=== PATIENT | male | born 1955 | race Caucasian/White ===

== ENCOUNTER → 2017-05-06 | Outpatient (CLI) | payer MEDICARE, OTHER | LOC: M RAD 08:01 | DX: R07.9 Chest pain, unspecified (principal); R91.1 Solitary pulmonary nodule; K80.20 Calculus of gallbladder without cholecystitis without obstruction; R91.8 Other nonspecific abnormal finding of lung field | CPT/HCPCS: 71250 ==

== ENCOUNTER → 2017-06-09 | Outpatient (CLI) | payer MEDICARE, OTHER | LOC: M PLARAD 09:21 | DX: R91.1 Solitary pulmonary nodule (principal) | CPT/HCPCS: 78815 ==

== ENCOUNTER 2019-07-24 10:47 | Emergency (ER) | payer MEDICARE, OTHER ==
[~2019-07-24] VITALS: Ht 175.3 cm; Wt 88.8 kg
[2019-07-24] MEDS ORDERED: FLUT15.820 NARES (11:06)
[2019-07-24] MEDS ORDERED: ENTR1TAB7 PO (11:06)
[2019-07-24] MEDS ORDERED: SYNT50TA PO (11:06)
[2019-07-24] MEDS ORDERED: OMEG1CAP16 PO (11:06)
[2019-07-24] MEDS ORDERED: NITR0.4S14 SL (11:06)
[2019-07-24] MEDS ORDERED: LOSA100T50 PO (11:06)
[2019-07-24] MEDS ORDERED: METO1TAB32 PO (11:06)
[2019-07-24] MEDS ORDERED: PLAV1TAB2 PO (11:06)
[2019-07-24] MEDS ORDERED: ZYLO300T6 PO (11:06)
[2019-07-24] MEDS ORDERED: OLIV250C PO (11:06)
[2019-07-24] MEDS ORDERED: VITA100T59 PO (11:06)
[2019-07-24] MEDS ORDERED: ATOR80TA59 PO (11:06)
[2019-07-24] MEDS ORDERED: FURO40TA2 PO (11:06)
[2019-07-24] MEDS ORDERED: MAGN400T3 PO (11:06)
[2019-07-24] MEDS ORDERED: ASPI81CH10 PO (11:06)
[2019-07-24] MEDS ORDERED: LORA-674 PO (11:06)
[2019-07-24] MEDS ORDERED: MULTCAP PO (11:06)
[2019-07-24 11:40] LABS: BASO % 0.2 % (0.0-1.0); EOS # 0.1 10^3/uL (0.0-0.5); EOS % 0.7 % (0.0-3.0); HEMATOCRIT 41.8 % (42.0-52.0); HEMOGLOBIN 13.9 g/dl (13.5-17.5); LYMPH # 0.8 10^3/uL (1.5-5.0); LYMPH % 10.4 % (24.0-44.0); MEAN CORPUSCULAR HEMOGLOBIN 31.9 pg (27.0-33.0); MEAN CORPUSCULAR HGB CONC 33.3 g/dl (32.0-36.5); MEAN CORPUSCULAR VOLUME 95.9 fl (80.0-96.0); MONO # 0.5 10^3/uL (0.0-0.8); MONO % 5.6 % (0.0-5.0); NEUTROPHILS # 6.7 10^3/uL (1.5-8.5); NEUTROPHILS % 82.9 % (36.0-66.0); PLATELET COUNT, AUTOMATED 138 10^3/uL (150-450); RED BLOOD COUNT 4.36 10^6/uL (4.30-6.10); WHITE BLOOD COUNT 8.1 10^3/uL (4.0-10.0)
--- NOTE | 2019-07-24 11:53 | REP ---
CT BRAIN WITHOUT CONTRAST: CT brain performed without IV contrast. Coronal reconstruction images are performed. There is mild atrophy. There is no midline shift of mass effect. Mild patchy periventricular small vessel ischemic changes are noted likely chronic in nature. No other abnormal density is seen in the brain. There is no acute hemorrhage. There is no extra-axial fluid collection. There are vascular calcifications in the carotid siphons. IMPRESSION: Mild atrophy and periventricular small vessel ischemic changes, likely chronic. No acute intracranial hemorrhage. Vascular calcifications. Electronically Signed by Jesus Ruiz MD 07/24/2019 12:57 P
[2019-07-24 11:55] LABS: INR 1.03; PROTHROMBIN TIME 13.2 SECONDS (11.8-14.0)
[2019-07-24] MEDS ORDERED: OMEG100011 PO (11:56)
[2019-07-24] MEDS ORDERED: OMEP-218 PO (11:56)
[2019-07-24] MEDS ORDERED: ASCO500T PO (11:56)
[2019-07-24] MEDS ORDERED: FERR325T16 PO (11:56)
--- NOTE | 2019-07-24 11:56 | REP ---
CHEST, SINGLE VIEW: Single view of the chest is performed. Comparison 03/17/2011. There is no acute infiltrate. Heart is upper limits of normal in size. Mediastinal silhouette is unremarkable. There are multiple sternal wires and mediastinal clips present. Left pacemaker is noted. IMPRESSION: No acute pulmonary disease. Electronically Signed by Jesus Ruiz MD 07/24/2019 12:57 P
[2019-07-24 12:14] LABS: ALBUMIN 3.4 GM/DL (3.2-5.2); ALT/SGPT 38 U/L (12-78); BILIRUBIN,DIRECT 0.1 MG/DL (0.0-0.2); BILIRUBIN,TOTAL 0.7 MG/DL (0.2-1.0); BLOOD UREA NITROGEN 31 MG/DL (7-18); CALCIUM LEVEL 9.2 MG/DL (8.8-10.2); CARBON DIOXIDE LEVEL 30 MEQ/L (21-32); CHLORIDE LEVEL 106 MEQ/L (98-107); CK-MB VALUE MASS 2.5 NG/ML (<3.6); CPK CREATINE PHOSPHOKINASE 116 U/L (39-308); CREATININE FOR GFR 1.28 MG/DL (0.70-1.30); GLOMERULAR FILTRATION RATE > 60.0 (>49); GLUCOSE, FASTING 95 MG/DL (70-100); MB/CK RELATIVE INDEX 2.16 (< OR =4); POTASSIUM SERUM 4.7 MEQ/L (3.5-5.1); SODIUM LEVEL 140 MEQ/L (136-145); TOTAL PROTEIN 6.6 GM/DL (6.4-8.2); TROPONIN I 0.04 NG/ML (< 0.10)
[2019-07-24] MEDS ORDERED: ASPIRIN 325 MG TAB PO ONE (13:15)
[2019-07-24] MEDS ORDERED: ISOVUE-370 76% 100ML VIAL (Q9967) As Ordered ONE (13:16)
[2019-07-24 14:51] VITALS: BP 172/78
--- NOTE | 2019-07-24 14:56 | REP ---
CT ANGIOGRAM OF THE NECK: CT angiogram of the neck is performed following the intravenous administration of 100 mL of Isovue 370. Sagittal, coronal, and 3D MIP reconstruction images are performed. Contrast is seen in the aortic arch. No contrast extends into the left common carotid artery with complete occlusion. There is a small amount of contrast seen in the left carotid bulb with a small amount of focal filling via adjacent collateral vessels. There is occlusion of the left internal carotid artery in its entirety to the [place]. Right brachycephalic artery demonstrates mild to moderate plaquing, with mild to moderate narrowing at the distal bifurcation. Right common carotid artery demonstrates mild plaquing and narrowing at its origin and there is mild scattered plaquing and narrowing more distally. Right external carotid artery appears significantly stenotic. There is no significant stenosis of the right internal carotid artery with luminal narrowing less than 50%. There is severe narrowing of the proximal right vertebral artery which is extremely thin throughout its course with moderately severe diffuse narrowing diffusely. The left vertebral artery demonstrates multifocal moderate degree of narrowing diffusely. Left vertebral artery is dominant. 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 There is also complete occlusion of the left internal carotid artery diffusely extending to the [place]. Small amount of contrast is seen in the left carotid bulb via collateral flow from external carotid branches. There is no significant stenosis of the right internal carotid artery. Dominant left vertebral artery demonstrates moderate multifocal narrowing. Preliminary report was provided for Dr. Khan at the time of the exam, the results were conveyed by telephone at approximately 1:55 p.m.., 07/24/2019. Electronically Signed by Jesus Ruiz MD 07/24/2019 07:48 P
--- NOTE | 2019-07-24 15:03 | REP ---
CT ANGIOGRAM OF THE BRAIN: Following the intravenous administration of 100 mL of Isovue 370, CT images of the brain are performed in the axial plane with sagittal, coronal, and 3D MIP reconstruction images. The intracranial left internal carotid artery is completely occluded. There is patent flow through the right internal carotid artery. There is moderate calcific plaquing and narrowing in the right carotid siphon region. Anterior communicating arteries are patent with adequate perfusion of both middle cerebral arteries in a symmetrical fashion. There is symmetrical flow in patent anterior cerebral arteries. Basilar artery demonstrates no significant stenosis. There is symmetrical perfusion of both posterior cerebral arteries. I see no aneurysm or AVM. IMPRESSION: Complete occlusion of the left internal carotid artery to the [place]. The left middle cerebral artery obtains collateral flow via the [place], with patent anterior communicating arteries. Moderate plaquing and narrowing of the right carotid siphon. There is symmetrical flow and perfusion in both anterior, middle and posterior cerebral arteries. The findings were conveyed to Dr. Khan by telephone at the time of the exam at approximately 1:55 p.m.., 07/24/2019. Electronically Signed by Jesus Ruiz MD 07/24/2019 07:49 P
--- NOTE | 2019-07-25 09:07 | ECGEPIP ---
[facility] - ED Test Date: 2019-07-24 Pat Name: GARY ENCISO Department: Room: - Gender: Male [employer]: kellie : 1955 Requested By: ANTHONY Garduno Order Number: [id number] Reading MD: Verónica Bedoya Measurements Intervals [place] Rate: 60 P: 41 RI: 170 QRS: -43 QRSD: 181 T: 152 QT: 499 QTc: 499 Interpretive Statements ELECTRONIC ATRIAL PACEMAKER ELECTRONIC VENTRICULAR PACEMAKER ABNORMAL RHYTHM ECG NO PRIOR Electronically Signed on 07-25-2019 9:07:26 EDT by Verónica Bedoya
== END 2019-07-24 14:53 | disposition short-term general hospital (02) ==
LOC: EDBD 10:47 → M ED 10:47 → UNDOADMIN 13:42 → M ED INP 13:42
DX: G45.9 Transient cerebral ischemic attack, unspecified (principal); I65.22 Occlusion and stenosis of left carotid artery; Z95.0 Presence of cardiac pacemaker; R94.31 Abnormal electrocardiogram [ECG] [EKG]; I10 Essential (primary) hypertension; E78.5 Hyperlipidemia, unspecified; I50.9 Heart failure, unspecified; G47.30 Sleep apnea, unspecified; Z79.82 Long term (current) use of aspirin; Z79.899 Other long term (current) drug therapy; Z88.8 Allergy status to other drugs, medicaments and biological substances
CPT/HCPCS: 70450; 70496; 70498; 71045; 80048; 80076; 82550; 82553; 84484; 85025; 85610; 85730; 86850; 86900; 86901; 93005; 93041; 94760; 99285; Q9967

== ENCOUNTER → 2020-03-18 | Outpatient (CLI) | payer MEDICARE, OTHER ==
[~2020-03-18] MED LIST: ASCO500T PO; ASPI81CH10 PO; ATOR80TA59 PO; ENTR1TAB7 PO; FERR325T16 PO; FLUT15.820 NARES; FURO40TA2 PO; LORA-674 PO; LOSA100T50 PO; MAGN400T3 PO; METO1TAB32 PO; MULTCAP PO; NITR0.4S14 SL; OLIV250C PO; OMEG100011 PO; OMEG1CAP16 PO; OMEP-218 PO; PLAV1TAB2 PO; SYNT50TA PO; VITA100T59 PO; ZYLO300T6 PO
== END ==
LOC: M LABSMTC 14:15
PROVIDERS: ATTEND Pediatrics
DX: Z20.828 Contact with and (suspected) exposure to other viral communicable diseases (principal)

== ENCOUNTER → 2021-03-14 | Outpatient (CLI) | payer OTHER ==
[~2021-03-14] MED LIST changes: +ASPI325T57 PO; +BUME1TAB3; +FERR324T21 PO; -FERR325T16 PO; -MAGN400T3 PO; +MAGN400T33 PO; +NITR0.4D6; +VERI2.5T
== END ==
LOC: M LABSMTC 09:18
PROVIDERS: ATTEND Anesthesiology
DX: Z01.812 Encounter for preprocedural laboratory examination (principal); Z20.822 Contact with and (suspected) exposure to COVID-19

== ENCOUNTER 2021-03-19 12:23 | Day surgery (SDC) | payer OTHER ==
[~2021-03-19] VITALS: Ht 170.2 cm; Wt 82.6 kg
[~2021-03-19 12:23] MED LIST changes: +NS 1,000 ML IV ONE
--- OUTSIDE RECORDS SUMMARY | 2021-03-19 12:31 | CCD | Continuity of Care Document ---
Author Author Adebayo ARCHER P. C. Organization Unknown Address [address] [place] [id number] Phone [phone] Care Team Providers Care Rn Emergency Name Role Phone Sami Kalyan [facility] AUTM Mick Ching MD AUTM [phone] Asuncion Underwood MD AUTM [phone] DAVE ELIZONDO M.D. P.C. AUTM [phone] Social History Type Date Description Comments Sex Unknown Allergies and adverse reactions Active Allergies Criticality Reaction | Severity Comments Date Tolmetin Unable to assess criticality 03/28/2020 Medications Active Medications SIG Qnty Indications Ordering Provide r Date Bumetanide 1mg Tablets 1 by mouth twice a day 90tabs Dave [facility] 01/24/20 21 Verquvo 2.5mg Tablets 1 by mouth every day with food dosage to be titrate by provider 90tabs Dave [facility]ondo [facility] 01/23/2021 Nitro-Dur 0.4mg/HR Patches 24HR apply patch daily and remove at bedtime 30units Dave El[facility]ondo [facility] 01/23/2021 Nicoderm CQ 21mg/24HR Patches 24HR apply patch daily and remove at bedtime 28units Dave [facility]ondo [facility] 12/12/2020 Wellbutrin SR 150mg Tablets ER 12H R 1 by mouth twice a day 60tabs Dave [facility]ondo [facility] 2020 Ipratropium Perdido/Albuterol Sulfate 0.5-2.5(3)mg/3ML Solution inhale 1 vial via nebulizer twice daily 90ml Dave El[facility]ondo [facility] 12/12/2020 Nebulizer Device use twice daily with duoneb 1units Dave Elizondo [facility] 12/13/19 21 Levothyroxine Sodium 75mcg Tablets Dave Elizondo M[facility] 07/18/2020 Ferrous Sulfate 324(65Fe) mg Table ts DR 1 by mouth twice a day Dave Elizondo [facility] 11/2020 Brilinta 90mg Tablets 1 by mouth every day 90tabs Dave Elizondo [facility] 07/19/19 21 Allopurinol 300mg Tablets 1 by mouth every day 90tabs Dave [facility]ondo [facility] 03/18/20 20 Atorvastatin Calcium 80mg Tablets take one tablet by mouth daily Dave [facility]ondo [facility] [place] Okay Extract 150mg Capsules take one tablet by mouth daily Dave El[facility]ondo [facility]. Vitamin C 500mg Capsules ever y day Dave El[facility]ondo [facility] Multivitamin Adult Tablets take one tablet by mouth twice daily Dave El[facility]ondo [facility] Nitrostat 0.4mg Tablets Sub one tablet by mouth for onset of chest pain, may repeat in five mins x2. if persists contact or call 911 25tabs Dave [facility]ondo [facility] 00 Fluticasone Propionate 50mcg/Act Suspension 2 sprays in each nostril daily Dave reis M.D[facility]. Magnesium Oxide 400mg Tablets 1 by mouth twice a day 90tabs Dave [facility]ondo [facility] [address] 1 by mouth every day 90caps Dave [facility]ondo [facility]. Metoprolol Succinate ER 25mg Tablets ER 24HR take one tablet by mouth daily Dave reis [facility].D[facility]. Loratadine 10mg Tablets take one tablet by mouth daily Dave El[facility]ondo [facility]. Furosemide 40mg Tablets take one tablet by mouth twice a day 180tabs Dave [facility]ondo [facility] Aspirin [address] 1 by mouth every day Dave [facility]ondo [facility] History Medications Amoxicillin 500mg Capsules take one tablet by mouth three times daily for 10 days 30caps Dave silva [facility] 11/26/2020 - 12/19/2020 Medications Administered in Office Medication SIG Qnty Indications Ordering Provider Date Lexiscan Injection Dave Elizondo [facility] 12/23/2020 Technetium TC 99M Sestamibi Injection Dave Elizondo [facility] 12/23/2020 Technetium TC 99M Sestamibi Injection Dave Elizondo [facility] 04/29/2018 Technetium TC 99M Sestamibi Injection Dave Elizondo M[facility] 07/30/2017 Vital Signs Date Vital Result Comment 03/14/2021 11:10am Height 69 inches 5'9" Weight 188.00 lb BMI (Body Mass Index) 27.8 kg/m2 Body Temperature 97.5 F BP Systolic 112 mmHg BP Diastolic 67 mmHg Heart Rate 78 /min O2 % BldC Oximetry 98 % 02/10/2021 2:44pm Height 69 inches 5'9" Weight 200.00 lb BMI (Body Mass Index) 29.5 kg/m2 Body Temperature 97.6 F BP Systolic 107 mmHg BP Diastolic 68 mmHg Heart Rate 68 /min O2 % BldC Oximetry 95 % Results Test Acquired Date Facility Test Result H/L Range Note Laboratory test finding 02/05/2021 [facility] [address] [place] [address] [phone] Iron 45 g/dL 42 - 135 Magnesium Serum 1.9 mg/dL 1.7 - 2.2 CBC W/Automated Diff 02/05/[address] [address] [phone] CBC W/Automated Diff (SEE NOTE) 1 WBC 6.0 10^3/uL 4.2 - 11.0 RBC 3.65 10^6/uL Low 4.50 - 6.30 Hemoglobin 11.4 g/dL Low 14.0 - 16.0 Hematocrit 36.5 % Low 41.0 - 51.0 MCV 100.0 fL High 80.0 - 94.0 MCH 31.2 pg 27.0 - 34.0 MCHC 31.2 g/dL 31.0 - 36.0 RDW 18.2 % High 11.5 - 14.8 Platelets 151 10^3/uL 150 - 450 MPV 11.2 fL High 7.4 - 10.4 Neut 78.6 % 37.0 - 80.0 Lymph 10.4 % Low 25.0 - 40.0 Marshall 8.0 % 3.0 - 8.0 Eos 2.5 % 0.0 - 7.0 Baso 0.3 % 0.0 - 2.0 %Ig 0.2 % High 0.0 - 0.0 %NRBC 0.0 % 0.0 - 0.0 #Neut 4.71 10^3/uL 2.00 - 6.90 #Lymph 0.62 10^3/uL 0.60 - 3.40 #Marshall 0.48 10^3/uL 0.00 - 0.90 #Eos 0.15 10^3/uL 0.00 - 0.70 #Baso 0.02 10^3/uL 0.00 - 0.20 #Ig 0.01 10^3/uL 0.00 - 0.10 #NRBC 0.00 10^3/uL 0.00 - 0.00 Manual Diff NOT INDICATED RBC Morph NOT INDICATED Laboratory test finding 02/05/[address] [address] [phone] TSH Highly Sensitive 10.10 uIU/mL High 0.47 - 5. 01 Vitamin B12 Serum 1363 pg/mL High 232 - 1245 Pro-BNP 9221 pg/mL High 0 - 125 Cve Panel 02/05/[address] [address] [phone] Cve Panel (SEE NOTE) 2 Cholesterol 116 mg/dL Low 131 - 200 Triglycerides 71 mg/dL 35 - 160 HDL 48 mg/dL 29 - 86 LDL 62 mg/dL Low 65 - 175 Risk Factor 2.4 Low 3.4 - 4.9 LDL/HDL 1.29 1.00 - 3.55 3 Comprehensive Metabolic Panel 02/05/2021 [facility] [address] [place] [phone] Comprehensive Metabo (SEE NOTE) 4 Sodium 142 mEq/L 134 - 153 Potassium 4.5 mEq/L 3.6 - 5.0 Chloride 105 mEq/L 98 - 107 Co2 25 mEq/L 22 - 30 Glucose 108 mg/dL High 70 - 99 BUN 27 mg/dL High 7 - 21 Creatinine 1.3 mg/dL 0.7 - 1.5 BUN/Creat 21 8 - 27 Total Protein 7.2 g/dL 6.3 - 8.2 Albumin 4.7 g/dL 3.9 - 5.0 Globulin 2.5 GM/DL 2.4 - 3.2 A/G Ratio 1.9 0.8 - 2.0 Calcium 9.9 mg/dL 8.4 - 10.2 Total Bili 1.1 mg/dL 0.2 - 1.3 Alkaline Phos 302 U/L High 38 - 126 Sgot/Ast 22 U/L 5 - 40 SGPT/Alt 11 U/L 7 - 56 Anion Gap 12.0 mmol/L 8.0 - 16.0 Age 65 yrs Non-Aa GFR 59 mL/min Afr Amer GFR >60 mL/min 5 CBC W/Automated Diff 01/23/[address] [address] [phone] CBC W/Automated Diff (SEE NOTE) 6 WBC 5.8 10^3/uL 4.2 - 11.0 RBC 3.10 10^6/uL Low 4.50 - 6.30 Hemoglobin 9.7 g/dL Low 14.0 - 16.0 Hematocrit 30.8 % Low 41.0 - 51.0 MCV 99.4 fL High 80.0 - 94.0 MCH 31.3 pg 27.0 - 34.0 MCHC 31.5 g/dL 31.0 - 36.0 RDW 17.3 % High 11.5 - 14.8 Platelets 154 10^3/uL 150 - 450 MPV 11.8 fL High 7.4 - 10.4 Neut 78.3 % 37.0 - 80.0 Lymph 9.0 % Low 25.0 - 40.0 Marshall 8.5 % High 3.0 - 8.0 Eos 3.8 % 0.0 - 7.0 Baso 0.2 % 0.0 - 2.0 %Ig 0.2 % High 0.0 - 0.0 %NRBC 0.0 % 0.0 - 0.0 #Neut 4.51 10^3/uL 2.00 - 6.90 #Lymph 0.52 10^3/uL Low 0.60 - 3.40 #Marshall 0.49 10^3/uL 0.00 - 0.90 #Eos 0.22 10^3/uL 0.00 - 0.70 #Baso 0.01 10^3/uL 0.00 - 0.20 #Ig 0.01 10^3/uL 0.00 - 0.10 #NRBC 0.00 10^3/uL 0.00 - 0.00 Manual Diff NOT INDICATED RBC Morph NOT INDICATED Laboratory test finding 01/23/2021 [facility] [address] [place] [address] [phone] Magnesium Serum 1.8 mg/dL 1.7 - 2.2 Comprehensive Metabolic Panel 01/23/2021 [facility] [address] [place] [address] [phone] Comprehensive Metabo (SEE NOTE) 7 Sodium 139 mEq/L 134 - 153 Potassium 4.7 mEq/L 3.6 - 5.0 Chloride 104 mEq/L 98 - 107 Co2 23 mEq/L 22 - 30 Glucose 95 mg/dL 70 - 99 BUN 39 mg/dL High 7 - 21 Creatinine 1.8 mg/dL High 0.7 - 1.5 BUN/Creat 22 8 - 27 Total Protein 6.2 g/dL Low 6.3 - 8.2 Albumin 4.2 g/dL 3.9 - 5.0 Globulin 2.0 GM/DL Low 2.4 - 3.2 A/G Ratio 2.1 High 0.8 - 2.0 Calcium 9.4 mg/dL 8.4 - 10.2 Total Bili 0.7 mg/dL 0.2 - 1.3 Alkaline Phos 289 U/L High 38 - 126 Sgot/Ast 15 U/L 5 - 40 SGPT/Alt 12 U/L 7 - 56 Anion Gap 12.0 mmol/L 8.0 - 16.0 Age 65 yrs Non-Aa GFR 41 mL/min Afr Amer GFR 49 mL/min 8 CBC W/Automated Diff 01/22/[address] [phone] CBC W/Automated Diff (SEE NOTE) 9 WBC 5.2 10^3/uL 4.2 - 11.0 RBC 3.10 10^6/uL Low 4.50 - 6.30 Hemoglobin 9.6 g/dL Low 14.0 - 16.0 Hematocrit 30.7 % Low 41.0 - 51.0 MCV 99.0 fL High 80.0 - 94.0 MCH 31.0 pg 27.0 - 34.0 MCHC 31.3 g/dL 31.0 - 36.0 RDW 17.4 % High 11.5 - 14.8 Platelets 147 10^3/uL Low 150 - 450 MPV 11.2 fL High 7.4 - 10.4 Neut 73.6 % 37.0 - 80.0 Lymph 13.0 % Low 25.0 - 40.0 Marshall 8.7 % High 3.0 - 8.0 Eos 3.9 % 0.0 - 7.0 Baso 0.4 % 0.0 - 2.0 %Ig 0.4 % High 0.0 - 0.0 %NRBC 0.0 % 0.0 - 0.0 #Neut 3.81 10^3/uL 2.00 - 6.90 #Lymph 0.67 10^3/uL 0.60 - 3.40 #Marshall 0.45 10^3/uL 0.00 - 0.90 #Eos 0.20 10^3/uL 0.00 - 0.70 #Baso 0.02 10^3/uL 0.00 - 0.20 #Ig 0.02 10^3/uL 0.00 - 0.10 #NRBC 0.00 10^3/uL 0.00 - 0.00 Manual Diff NOT INDICATED RBC Morph NOT INDICATED Laboratory test finding 01/22/2021 [facility] [address] [place] [address] [phone] Pro-BNP 6385 pg/mL High 0 - 125 Magnesium Serum 1.8 mg/dL 1.7 - 2.2 Comprehensive Metabolic Panel 01/22/2021 [facility] [address] [place] [address] [phone] Comprehensive Metabo (SEE NOTE) 10 Sodium 140 mEq/L 134 - 153 Potassium 4.6 mEq/L 3.6 - 5.0 Chloride 106 mEq/L 98 - 107 Co2 23 mEq/L 22 - 30 Glucose 93 mg/dL 70 - 99 BUN 37 mg/dL High 7 - 21 Creatinine 1.6 mg/dL High 0.7 - 1.5 BUN/Creat 23 8 - 27 Total Protein 6.3 g/dL 6.3 - 8.2 Albumin 4.2 g/dL 3.9 - 5.0 Globulin 2.1 GM/DL Low 2.4 - 3.2 A/G Ratio 2.0 0.8 - 2.0 Calcium 9.4 mg/dL 8.4 - 10.2 Total Bili 0.7 mg/dL 0.2 - 1.3 Alkaline Phos 256 U/L High 38 - 126 Sgot/Ast 16 U/L 5 - 40 SGPT/Alt 10 U/L 7 - 56 Anion Gap 11.0 mmol/L 8.0 - 16.0 Age 65 yrs Non-Aa GFR 46 mL/min Afr Amer GFR 56 mL/min 11 Laboratory test finding 01/22/2021 [facility] [address] [place] [address] [phone] Troponin T 0.04 NG/ML 0.00 - 0.10 12 Laboratory test finding 01/21/2021 [facility] [address] [place] [phone] Troponin T 0.07 NG/ML 0.00 - 0.10 13 Laboratory test finding 01/21/2021 [facility] [address] [place] [address] [phone] Iron 48 g/dL 42 - 135 Vitamin B12 Serum 1269 pg/mL High 232 - 1245 CBC W/Automated Diff 01/21/[address] [address] [phone] CBC W/Automated Diff (SEE NOTE) 14 WBC 5.5 10^3/uL 4.2 - 11.0 RBC 2.86 10^6/uL Low 4.50 - 6.30 Hemoglobin 9.0 g/dL Low 14.0 - 16.0 Hematocrit 28.4 % Low 41.0 - 51.0 MCV 99.3 fL High 80.0 - 94.0 MCH 31.5 pg 27.0 - 34.0 MCHC 31.7 g/dL 31.0 - 36.0 RDW 17.4 % High 11.5 - 14.8 Platelets 139 10^3/uL Low 150 - 450 MPV 10.6 fL High 7.4 - 10.4 Neut 79.1 % 37.0 - 80.0 Lymph 10.9 % Low 25.0 - 40.0 Marshall 7.1 % 3.0 - 8.0 Eos 2.2 % 0.0 - 7.0 Baso 0.5 % 0.0 - 2.0 %Ig 0.2 % High 0.0 - 0.0 %NRBC 0.0 % 0.0 - 0.0 #Neut 4.37 10^3/uL 2.00 - 6.90 #Lymph 0.60 10^3/uL 0.60 - 3.40 #Marshall 0.39 10^3/uL 0.00 - 0.90 #Eos 0.12 10^3/uL 0.00 - 0.70 #Baso 0.03 10^3/uL 0.00 - 0.20 #Ig 0.01 10^3/uL 0.00 - 0.10 #NRBC 0.00 10^3/uL 0.00 - 0.00 Manual Diff NOT INDICATED RBC Morph SEE BELOW Aniso 1+ Abnormal Normal: None Seen Poik 1+ Abnormal Normal: None Seen Hypo 1+ Abnormal Normal: None Seen 15 Teardrop 1+ Abnormal Normal: None Seen Ovalocytes 1+ Abnormal Normal: None Seen PLT Est NORMAL Normal: Normal 16 Laboratory test finding 01/21/[address] [address] [phone] Magnesium Serum 2.0 mg/dL 1.7 - 2.2 Comprehensive Metabolic Panel 01/21/2021 [facility] [address] [place] [address] [phone] Comprehensive Metabo (SEE NOTE) 17 Sodium 140 mEq/L 134 - 153 Potassium 4.4 mEq/L 3.6 - 5.0 Chloride 107 mEq/L 98 - 107 Co2 21 mEq/L Low 22 - 30 Glucose 112 mg/dL High 70 - 99 BUN 34 mg/dL High 7 - 21 Creatinine 1.5 mg/dL 0.7 - 1.5 BUN/Creat 23 8 - 27 Total Protein 6.1 g/dL Low 6.3 - 8.2 Albumin 4.1 g/dL 3.9 - 5.0 Globulin 2.0 GM/DL Low 2.4 - 3.2 A/G Ratio 2.1 High 0.8 - 2.0 Calcium 9.1 mg/dL 8.4 - 10.2 Total Bili <0.7 mg/dL 0.2 - 1.3 Alkaline Phos 260 U/L High 38 - 126 Sgot/Ast 17 U/L 5 - 40 SGPT/Alt 11 U/L 7 - 56 Anion Gap 12.0 mmol/L 8.0 - 16.0 Age 65 yrs Non-Aa GFR 50 mL/min Afr Amer GFR >60 mL/min 18 Laboratory test finding 01/21/2021 [facility] [address] [place] [address] [phone] Troponin T 0.06 NG/ML 0.00 - 0.10 19 Laboratory test finding 01/21/[address] [address] [phone] Troponin T 0.05 NG/ML 0.00 - 0.10 20 Laboratory test finding 01/21/[address] [address] [phone] Troponin T 0.05 NG/ML 0.00 - 0.10 21 Alcohol Ethyl Blood 01/20/[address] [address] [phone] Alcohol 70.0 mg/dL Alcohol % 0.07 % High 0.00 - 0.01 22 CBC W/Automated Diff 01/20/[address] [address] [phone] CBC W/Automated Diff (SEE NOTE) 23 WBC 6.3 10^3/uL 4.2 - 11.0 RBC 3.24 10^6/uL Low 4.50 - 6.30 Hemoglobin 10.2 g/dL Low 14.0 - 16.0 Hematocrit 32.5 % Low 41.0 - 51.0 MCV 100.3 fL High 80.0 - 94.0 MCH 31.5 pg 27.0 - 34.0 MCHC 31.4 g/dL 31.0 - 36.0 RDW 17.6 % High 11.5 - 14.8 Platelets 172 10^3/uL 150 - 450 MPV 11.6 fL High 7.4 - 10.4 Neut 74.3 % 37.0 - 80.0 Lymph 14.2 % Low 25.0 - 40.0 Marshall 7.7 % 3.0 - 8.0 Eos 3.2 % 0.0 - 7.0 Baso 0.3 % 0.0 - 2.0 %Ig 0.3 % High 0.0 - 0.0 %NRBC 0.0 % 0.0 - 0.0 #Neut 4.66 10^3/uL 2.00 - 6.90 #Lymph 0.89 10^3/uL 0.60 - 3.40 #Marshall 0.48 10^3/uL 0.00 - 0.90 #Eos 0.20 10^3/uL 0.00 - 0.70 #Baso 0.02 10^3/uL 0.00 - 0.20 #Ig 0.02 10^3/uL 0.00 - 0.10 #NRBC 0.00 10^3/uL 0.00 - 0.00 Manual Diff NOT INDICATED RBC Morph NOT INDICATED Laboratory test finding 01/20/2021 [facility] [address] [place] [phone] Troponin T 0.03 NG/ML 0.00 - 0.10 24 Comprehensive Metabolic Panel 01/20/2021 [facility] [address] [place] [address] [phone] Comprehensive Metabo (SEE NOTE) 25 Sodium 140 mEq/L 134 - 153 Potassium 3.9 mEq/L 3.6 - 5.0 Chloride 106 mEq/L 98 - 107 Co2 20 mEq/L Low 22 - 30 Glucose 118 mg/dL High 70 - 99 BUN 33 mg/dL High 7 - 21 Creatinine 1.5 mg/dL 0.7 - 1.5 BUN/Creat 22 8 - 27 Total Protein 6.2 g/dL Low 6.3 - 8.2 Albumin 4.1 g/dL 3.9 - 5.0 Globulin 2.1 GM/DL Low 2.4 - 3.2 A/G Ratio 2.0 0.8 - 2.0 Calcium 9.0 mg/dL 8.4 - 10.2 Total Bili <0.7 mg/dL 0.2 - 1.3 Alkaline Phos 273 U/L High 38 - 126 Sgot/Ast 19 U/L 5 - 40 SGPT/Alt 12 U/L 7 - 56 Anion Gap 14.0 mmol/L 8.0 - 16.0 Age 65 yrs Non-Aa GFR 50 mL/min Afr Amer GFR >60 mL/min 26 Laboratory test finding 01/20/[address] [phone] Pro-BNP 6632 pg/mL High 0 - 125 CBC W/Automated Diff 01/08/[address] [phone] CBC W/Automated Diff (SEE NOTE) 27 WBC 5.1 10^3/uL 4.2 - 11.0 RBC 3.06 10^6/uL Low 4.50 - 6.30 Hemoglobin 9.5 g/dL Low 14.0 - 16.0 Hematocrit 30.5 % Low 41.0 - 51.0 MCV 99.7 fL High 80.0 - 94.0 MCH 31.0 pg 27.0 - 34.0 MCHC 31.1 g/dL 31.0 - 36.0 RDW 16.4 % High 11.5 - 14.8 Platelets 147 10^3/uL Low 150 - 450 MPV 11.1 fL High 7.4 - 10.4 Neut 76.0 % 37.0 - 80.0 Lymph 9.1 % Low 25.0 - 40.0 Marshall 10.7 % High 3.0 - 8.0 Eos 3.2 % 0.0 - 7.0 Baso 0.8 % 0.0 - 2.0 %Ig 0.2 % High 0.0 - 0.0 %NRBC 0.0 % 0.0 - 0.0 #Neut 3.84 10^3/uL 2.00 - 6.90 #Lymph 0.46 10^3/uL Low 0.60 - 3.40 #Marshall 0.54 10^3/uL 0.00 - 0.90 #Eos 0.16 10^3/uL 0.00 - 0.70 #Baso 0.04 10^3/uL 0.00 - 0.20 #Ig 0.01 10^3/uL 0.00 - 0.10 #NRBC 0.00 10^3/uL 0.00 - 0.00 Manual Diff NOT INDICATED RBC Morph NOT INDICATED Comprehensive Metabolic Panel 01/08/[address] [address] [phone] Comprehensive Metabo (SEE NOTE) 28 Sodium 139 mEq/L 134 - 153 Potassium 4.3 mEq/L 3.6 - 5.0 Chloride 100 mEq/L 98 - 107 Co2 28 mEq/L 22 - 30 Glucose 106 mg/dL High 70 - 99 BUN 31 mg/dL High 7 - 21 Creatinine 1.2 mg/dL 0.7 - 1.5 BUN/Creat 26 8 - 27 Total Protein 6.4 g/dL 6.3 - 8.2 Albumin 4.3 g/dL 3.9 - 5.0 Globulin 2.1 GM/DL Low 2.4 - 3.2 A/G Ratio 2.0 0.8 - 2.0 Calcium 9.5 mg/dL 8.4 - 10.2 Total Bili 0.7 mg/dL 0.2 - 1.3 Alkaline Phos 277 U/L High 38 - 126 Sgot/Ast 38 U/L 5 - 40 SGPT/Alt 30 U/L 7 - 56 Anion Gap 11.0 mmol/L 8.0 - 16.0 Age 65 yrs Non-Aa GFR >60 mL/min Afr Amer GFR >60 mL/min 29 CBC W/Automated Diff 01/07/[address] [address] [phone] CBC W/Automated Diff (SEE NOTE) 30, 31 WBC 5.0 10^3/uL 4.2 - 11.0 RBC 3.14 10^6/uL Low 4.50 - 6.30 Hemoglobin 9.7 g/dL Low 14.0 - 16.0 Hematocrit 30.9 % Low 41.0 - 51.0 MCV 98.4 fL High 80.0 - 94.0 MCH 30.9 pg 27.0 - 34.0 MCHC 31.4 g/dL 31.0 - 36.0 RDW 16.5 % High 11.5 - 14.8 Platelets 144 10^3/uL Low 150 - 450 MPV 11.0 fL High 7.4 - 10.4 Neut 75.8 % 37.0 - 80.0 Lymph 10.9 % Low 25.0 - 40.0 Marshall 9.1 % High 3.0 - 8.0 Eos 3.4 % 0.0 - 7.0 Baso 0.4 % 0.0 - 2.0 %Ig 0.4 % High 0.0 - 0.0 %NRBC 0.0 % 0.0 - 0.0 #Neut 3.77 10^3/uL 2.00 - 6.90 #Lymph 0.54 10^3/uL Low 0.60 - 3.40 #Marshall 0.45 10^3/uL 0.00 - 0.90 #Eos 0.17 10^3/uL 0.00 - 0.70 #Baso 0.02 10^3/uL 0.00 - 0.20 #Ig 0.02 10^3/uL 0.00 - 0.10 #NRBC 0.00 10^3/uL 0.00 - 0.00 Manual Diff NOT INDICATED RBC Morph NOT INDICATED Laboratory test finding 01/07/2021 [facility] [address] [place] [address] [phone] Troponin T 0.02 NG/ML 0.00 - 0.10 32 Comprehensive Metabolic Panel 01/07/2021 [facility] [address] [place] [address] [phone] Comprehensive Metabo (SEE NOTE) 33 Sodium 139 mEq/L 134 - 153 Potassium 3.9 mEq/L 3.6 - 5.0 Chloride 101 mEq/L 98 - 107 Co2 28 mEq/L 22 - 30 Glucose 104 mg/dL High 70 - 99 BUN 31 mg/dL High 7 - 21 Creatinine 1.1 mg/dL 0.7 - 1.5 BUN/Creat 28 High 8 - 27 Total Protein 6.4 g/dL 6.3 - 8.2 Albumin 4.1 g/dL 3.9 - 5.0 Globulin 2.3 GM/DL Low 2.4 - 3.2 A/G Ratio 1.8 0.8 - 2.0 Calcium 9.2 mg/dL 8.4 - 10.2 Total Bili <0.7 mg/dL 0.2 - 1.3 Alkaline Phos 266 U/L High 38 - 126 Sgot/Ast 27 U/L 5 - 40 SGPT/Alt 17 U/L 7 - 56 Anion Gap 10.0 mmol/L 8.0 - 16.0 Age 65 yrs Non-Aa GFR >60 mL/min Afr Amer GFR >60 mL/min 34 CBC W/Automated Diff 01/06/[address] [address] [phone] CBC W/Automated Diff (SEE NOTE) 35 WBC 6.1 10^3/uL 4.2 - 11.0 RBC 3.28 10^6/uL Low 4.50 - 6.30 Hemoglobin 10.4 g/dL Low 14.0 - 16.0 Hematocrit 32.2 % Low 41.0 - 51.0 MCV 98.2 fL High 80.0 - 94.0 MCH 31.7 pg 27.0 - 34.0 MCHC 32.3 g/dL 31.0 - 36.0 RDW 16.7 % High 11.5 - 14.8 Platelets 141 10^3/uL Low 150 - 450 MPV 9.5 fL 7.4 - 10.4 Neut 78.2 % 37.0 - 80.0 Lymph 10.5 % Low 25.0 - 40.0 Marshall 8.4 % High 3.0 - 8.0 Eos 2.3 % 0.0 - 7.0 Baso 0.3 % 0.0 - 2.0 %Ig 0.3 % High 0.0 - 0.0 %NRBC 0.0 % 0.0 - 0.0 #Neut 4.75 10^3/uL 2.00 - 6.90 #Lymph 0.64 10^3/uL 0.60 - 3.40 #Marshall 0.51 10^3/uL 0.00 - 0.90 #Eos 0.14 10^3/uL 0.00 - 0.70 #Baso 0.02 10^3/uL 0.00 - 0.20 #Ig 0.02 10^3/uL 0.00 - 0.10 #NRBC 0.00 10^3/uL 0.00 - 0.00 Manual Diff NOT INDICATED RBC Morph NOT INDICATED Comprehensive Metabolic Panel 01/06/2021 [facility] [address] [place] [address] [phone] Comprehensive Metabo (SEE NOTE) 36 Sodium 141 mEq/L 134 - 153 Potassium 4.0 mEq/L 3.6 - 5.0 Chloride 102 mEq/L 98 - 107 Co2 29 mEq/L 22 - 30 Glucose 102 mg/dL High 70 - 99 BUN 32 mg/dL High 7 - 21 Creatinine 1.2 mg/dL 0.7 - 1.5 BUN/Creat 27 8 - 27 Total Protein 6.3 g/dL 6.3 - 8.2 Albumin 4.1 g/dL 3.9 - 5.0 Globulin 2.2 GM/DL Low 2.4 - 3.2 A/G Ratio 1.9 0.8 - 2.0 Calcium 9.4 mg/dL 8.4 - 10.2 Total Bili 0.7 mg/dL 0.2 - 1.3 Alkaline Phos 252 U/L High 38 - 126 Sgot/Ast 19 U/L 5 - 40 SGPT/Alt 12 U/L 7 - 56 Anion Gap 10.0 mmol/L 8.0 - 16.0 Age 65 yrs Non-Aa GFR >60 mL/min Afr Amer GFR >60 mL/min 37 Laboratory test finding 01/06/2021 [facility] [address] [place] [phone] Iron 40 g/dL Low 42 - 135 Laboratory test finding 01/05/2021 [facility] [address] [place] [phone] Magnesium Serum 1.8 mg/dL 1.7 - 2.2 CBC W/Automated Diff 01/05/[address] [address] [phone] CBC W/Automated Diff (SEE NOTE) 38 WBC 5.4 10^3/uL 4.2 - 11.0 RBC 3.23 10^6/uL Low 4.50 - 6.30 Hemoglobin 10.2 g/dL Low 14.0 - 16.0 Hematocrit 31.8 % Low 41.0 - 51.0 MCV 98.5 fL High 80.0 - 94.0 MCH 31.6 pg 27.0 - 34.0 MCHC 32.1 g/dL 31.0 - 36.0 RDW 16.5 % High 11.5 - 14.8 Platelets 168 10^3/uL 150 - 450 MPV 11.5 fL High 7.4 - 10.4 Neut 77.2 % 37.0 - 80.0 Lymph 11.6 % Low 25.0 - 40.0 Marshall 8.5 % High 3.0 - 8.0 Eos 1.7 % 0.0 - 7.0 Baso 0.6 % 0.0 - 2.0 %Ig 0.4 % High 0.0 - 0.0 %NRBC 0.0 % 0.0 - 0.0 #Neut 4.21 10^3/uL 2.00 - 6.90 #Lymph 0.63 10^3/uL 0.60 - 3.40 #Marshall 0.46 10^3/uL 0.00 - 0.90 #Eos 0.09 10^3/uL 0.00 - 0.70 #Baso 0.03 10^3/uL 0.00 - 0.20 #Ig 0.02 10^3/uL 0.00 - 0.10 #NRBC 0.00 10^3/uL 0.00 - 0.00 Manual Diff NOT INDICATED RBC Morph NOT INDICATED Comprehensive Metabolic Panel 01/05/2021 [facility] [address] [place] [address] [phone] Comprehensive Metabo (SEE NOTE) 39 Sodium 141 mEq/L 134 - 153 Potassium 3.6 mEq/L 3.6 - 5.0 Chloride 102 mEq/L 98 - 107 Co2 30 mEq/L 22 - 30 Glucose 101 mg/dL High 70 - 99 BUN 32 mg/dL High 7 - 21 Creatinine 1.4 mg/dL 0.7 - 1.5 BUN/Creat 23 8 - 27 Total Protein 6.1 g/dL Low 6.3 - 8.2 Albumin 3.7 g/dL Low 3.9 - 5.0 Globulin 2.4 GM/DL 2.4 - 3.2 A/G Ratio 1.5 0.8 - 2.0 Calcium 9.5 mg/dL 8.4 - 10.2 Total Bili 0.7 mg/dL 0.2 - 1.3 Alkaline Phos 243 U/L High 38 - 126 Sgot/Ast 18 U/L 5 - 40 SGPT/Alt 11 U/L 7 - 56 Anion Gap 9.0 mmol/L 8.0 - 16.0 Age 65 yrs Non-Aa GFR 54 mL/min Afr Amer GFR >60 mL/min 40 Laboratory test finding 01/04/2021 [facility] [address] [place] [address] [phone] Potassium 4.1 mEq/L 3.6 - 5.0 Laboratory test finding 01/04/2021 [facility] [address] [place] [address] [phone] Troponin T 0.02 NG/ML 0.00 - 0.10 41 Comprehensive Metabolic Panel 01/04/2021 [facility] [address] [place], [place] [id number] [phone] Comprehensive Metabo (SEE NOTE) 42 Sodium 142 mEq/L 134 - 153 Potassium 3.6 mEq/L 3.6 - 5.0 Chloride 103 mEq/L 98 - 107 Co2 27 mEq/L 22 - 30 Glucose 104 mg/dL High 70 - 99 BUN 27 mg/dL High 7 - 21 Creatinine 1.2 mg/dL 0.7 - 1.5 BUN/Creat 23 8 - 27 Total Protein 6.2 g/dL Low 6.3 - 8.2 Albumin 4.2 g/dL 3.9 - 5.0 Globulin 2.0 GM/DL Low 2.4 - 3.2 A/G Ratio 2.1 High 0.8 - 2.0 Calcium 9.5 mg/dL 8.4 - 10.2 Total Bili 0.9 mg/dL 0.2 - 1.3 Alkaline Phos 254 U/L High 38 - 126 Sgot/Ast 20 U/L 5 - 40 SGPT/Alt 12 U/L 7 - 56 Anion Gap 12.0 mmol/L 8.0 - 16.0 Age 65 yrs Non-Aa GFR >60 mL/min Afr Amer GFR >60 mL/min 43 CBC W/Automated Diff 01/04/2021 [place] [address] [phone] CBC W/Automated Diff (SEE NOTE) 44 WBC 5.9 10^3/uL 4.2 - 11.0 RBC 3.21 10^6/uL Low 4.50 - 6.30 Hemoglobin 10.1 g/dL Low 14.0 - 16.0 Hematocrit 32.0 % Low 41.0 - 51.0 MCV 99.7 fL High 80.0 - 94.0 MCH 31.5 pg 27.0 - 34.0 MCHC 31.6 g/dL 31.0 - 36.0 RDW 17.0 % High 11.5 - 14.8 Platelets 159 10^3/uL 150 - 450 MPV 11.2 fL High 7.4 - 10.4 Neut 76.5 % 37.0 - 80.0 Lymph 12.8 % Low 25.0 - 40.0 Marshall 8.0 % 3.0 - 8.0 Eos 2.1 % 0.0 - 7.0 Baso 0.3 % 0.0 - 2.0 %Ig 0.3 % High 0.0 - 0.0 %NRBC 0.0 % 0.0 - 0.0 #Neut 4.47 10^3/uL 2.00 - 6.90 #Lymph 0.75 10^3/uL 0.60 - 3.40 #Marshall 0.47 10^3/uL 0.00 - 0.90 #Eos 0.12 10^3/uL 0.00 - 0.70 #Baso 0.02 10^3/uL 0.00 - 0.20 #Ig 0.02 10^3/uL 0.00 - 0.10 #NRBC 0.00 10^3/uL 0.00 - 0.00 Manual Diff NOT INDICATED RBC Morph NOT INDICATED Laboratory test finding 01/04/[address] [phone] Magnesium Serum 1.8 mg/dL 1.7 - 2.2 Iron 41 g/dL Low 42 - 135 Laboratory test finding 01/04/[address] [phone] Troponin T 0.02 NG/ML 0.00 - 0.10 45 Laboratory test finding 01/03/2021 [facility] [address] [place] [address] [phone] Magnesium Serum 1.9 mg/dL 1.7 - 2.2 46 TSH Highly Sensitive 3.56 uIU/mL 0.47 - 5.01 T4 - Free 1.37 ng/dL 0.93 - 1.70 Laboratory test finding 01/03/2021 [facility] [address] [place], [place] [phone] Troponin T 0.02 NG/ML 0.00 - 0.10 47 Comprehensive Metabolic Panel 01/03/2021 [facility] [address] [place] [phone] Comprehensive Metabo (SEE NOTE) 48 Sodium 143 mEq/L 134 - 153 Potassium 3.8 mEq/L 3.6 - 5.0 Chloride 104 mEq/L 98 - 107 Co2 25 mEq/L 22 - 30 Glucose 122 mg/dL High 70 - 99 BUN 26 mg/dL High 7 - 21 Creatinine 1.2 mg/dL 0.7 - 1.5 BUN/Creat 22 8 - 27 Total Protein 6.6 g/dL 6.3 - 8.2 Albumin 4.5 g/dL 3.9 - 5.0 Globulin 2.1 GM/DL Low 2.4 - 3.2 A/G Ratio 2.1 High 0.8 - 2.0 Calcium 9.5 mg/dL 8.4 - 10.2 Total Bili 0.9 mg/dL 0.2 - 1.3 Alkaline Phos 266 U/L High 38 - 126 Sgot/Ast 26 U/L 5 - 40 SGPT/Alt 13 U/L 7 - 56 Anion Gap 14.0 mmol/L 8.0 - 16.0 Age 65 yrs Non-Aa GFR >60 mL/min Afr Amer GFR >60 mL/min 49 Laboratory test finding 01/03/[address] [address] [phone] Troponin T 0.02 NG/ML 0.00 - 0.10 50 Pro-BNP 6929 pg/mL High 0 - 125 CBC W/Automated Diff 01/03/[address] [address] [phone] CBC W/Automated Diff (SEE NOTE) 51 WBC 6.3 10^3/uL 4.2 - 11.0 RBC 3.25 10^6/uL Low 4.50 - 6.30 Hemoglobin 10.2 g/dL Low 14.0 - 16.0 Hematocrit 33.2 % Low 41.0 - 51.0 MCV 102.2 fL High 80.0 - 94.0 MCH 31.4 pg 27.0 - 34.0 MCHC 30.7 g/dL Low 31.0 - 36.0 RDW 17.2 % High 11.5 - 14.8 Platelets 146 10^3/uL Low 150 - 450 MPV 9.8 fL 7.4 - 10.4 Neut 83.0 % High 37.0 - 80.0 Lymph 8.7 % Low 25.0 - 40.0 Marshall 6.6 % 3.0 - 8.0 Eos 0.9 % 0.0 - 7.0 Baso 0.3 % 0.0 - 2.0 %Ig 0.5 % High 0.0 - 0.0 %NRBC 0.0 % 0.0 - 0.0 #Neut 5.25 10^3/uL 2.00 - 6.90 #Lymph 0.55 10^3/uL Low 0.60 - 3.40 #Marshall 0.42 10^3/uL 0.00 - 0.90 #Eos 0.06 10^3/uL 0.00 - 0.70 #Baso 0.02 10^3/uL 0.00 - 0.20 #Ig 0.03 10^3/uL 0.00 - 0.10 #NRBC 0.00 10^3/uL 0.00 - 0.00 Manual Diff NOT INDICATED RBC Morph NOT INDICATED Laboratory test finding 01/03/[address] [address] [phone] Troponin T 0.02 NG/ML 0.00 - 0.10 52 Laboratory test finding 12/12/[address] [address] [phone] Magnesium Serum 2.1 mg/dL 1.7 - 2.2 Pro-BNP 7997 pg/mL High 0 - 125 Comprehensive Metabolic Panel 12/12/2020 [facility] [address] [place] [phone] Comprehensive Metabo (SEE NOTE) 53 Sodium 142 mEq/L 134 - 153 Potassium 4.6 mEq/L 3.6 - 5.0 Chloride 106 mEq/L 98 - 107 Co2 22 mEq/L 22 - 30 Glucose 117 mg/dL High 70 - 99 BUN 32 mg/dL High 7 - 21 Creatinine 1.3 mg/dL 0.7 - 1.5 BUN/Creat 25 8 - 27 Total Protein 6.8 g/dL 6.3 - 8.2 Albumin 4.5 g/dL 3.9 - 5.0 Globulin 2.3 GM/DL Low 2.4 - 3.2 A/G Ratio 2.0 0.8 - 2.0 Calcium 9.6 mg/dL 8.4 - 10.2 Total Bili 0.7 mg/dL 0.2 - 1.3 Alkaline Phos 283 U/L High 38 - 126 Sgot/Ast 26 U/L 5 - 40 SGPT/Alt 17 U/L 7 - 56 Anion Gap 14.0 mmol/L 8.0 - 16.0 Age 65 yrs Non-Aa GFR 59 mL/min Afr Amer GFR >60 mL/min 54 Cve Panel 12/12/[address] [address] [phone] Cve Panel (SEE NOTE) 55 Cholesterol 108 mg/dL Low 131 - 200 Triglycerides 52 mg/dL 35 - 160 HDL 40 mg/dL 29 - 86 LDL 68 mg/dL 65 - 175 Risk Factor 2.7 Low 3.4 - 4.9 LDL/HDL 1.70 1.00 - 3.55 56 CBC W/Automated Diff 12/12/[address] [address] [phone] CBC W/Automated Diff (SEE NOTE) 57 WBC 7.0 10^3/uL 4.2 - 11.0 RBC 3.21 10^6/uL Low 4.50 - 6.30 Hemoglobin 10.3 g/dL Low 14.0 - 16.0 Hematocrit 33.2 % Low 41.0 - 51.0 MCV 103.4 fL High 80.0 - 94.0 MCH 32.1 pg 27.0 - 34.0 MCHC 31.0 g/dL 31.0 - 36.0 RDW 18.5 % High 11.5 - 14.8 Platelets 179 10^3/uL 150 - 450 MPV 10.7 fL High 7.4 - 10.4 Neut 83.7 % High 37.0 - 80.0 Lymph 7.8 % Low 25.0 - 40.0 Marshall 7.1 % 3.0 - 8.0 Eos 0.7 % 0.0 - 7.0 Baso 0.3 % 0.0 - 2.0 %Ig 0.4 % High 0.0 - 0.0 %NRBC 0.0 % 0.0 - 0.0 #Neut 5.88 10^3/uL 2.00 - 6.90 #Lymph 0.55 10^3/uL Low 0.60 - 3.40 #Marshall 0.50 10^3/uL 0.00 - 0.90 #Eos 0.05 10^3/uL 0.00 - 0.70 #Baso 0.02 10^3/uL 0.00 - 0.20 #Ig 0.03 10^3/uL 0.00 - 0.10 #NRBC 0.00 10^3/uL 0.00 - 0.00 Manual Diff NOT INDICATED RBC Morph NOT INDICATED Urinalysis 11/22/[address] [address] [phone] Urinalysis (SEE NOTE) 58, 59 Source R Color yellow Normal: Yellow Clarity clear Normal: Clear Spec [place] 1.015 1.001 - 1.030 pH 5 5 - 9 Glucose NORM Normal: Negative Bilirubin NEG Normal: Negative Ketone NEG Normal: Negative Protein NEG Normal: Negative Nitrite NEG Normal: Negative Blood NEG Normal: Negative Leuk Est NEG Normal: Negative Urobilinogen NOR less than 1.0 mg/dL Microscopic Not Indicate CBC W/Automated Diff 11/22/[address] [address] [phone] CBC W/Automated Diff (SEE NOTE) 60 WBC 6.7 10^3/uL 4.2 - 11.0 RBC 2.85 10^6/uL Low 4.50 - 6.30 Hemoglobin 9.4 g/dL Low 14.0 - 16.0 Hematocrit 28.8 % Low 41.0 - 51.0 MCV 101.1 fL High 80.0 - 94.0 MCH 33.0 pg 27.0 - 34.0 MCHC 32.6 g/dL 31.0 - 36.0 RDW 17.1 % High 11.5 - 14.8 Platelets 144 10^3/uL Low 150 - 450 MPV 9.7 fL 7.4 - 10.4 Neut 85.8 % High 37.0 - 80.0 Lymph 7.2 % Low 25.0 - 40.0 Marshall 5.8 % 3.0 - 8.0 Eos 0.7 % 0.0 - 7.0 Baso 0.1 % 0.0 - 2.0 %Ig 0.4 % High 0.0 - 0.0 %NRBC 0.0 % 0.0 - 0.0 #Neut 5.73 10^3/uL 2.00 - 6.90 #Lymph 0.48 10^3/uL Low 0.60 - 3.40 #Marshall 0.39 10^3/uL 0.00 - 0.90 #Eos 0.05 10^3/uL 0.00 - 0.70 #Baso 0.01 10^3/uL 0.00 - 0.20 #Ig 0.03 10^3/uL 0.00 - 0.10 #NRBC 0.00 10^3/uL 0.00 - 0.00 Manual Diff NOT INDICATED RBC Morph NOT INDICATED Laboratory test finding 11/22/2020 [facility] [address] [place] [address] [phone] Hgba1c 5.2 % 4.4 - 6.1 61 Iron 42 g/dL 42 - 135 Magnesium Serum 2.2 mg/dL 1.7 - 2.2 Comprehensive Metabolic Panel 11/22/2020 [facility] [address] [place] [address] [phone] Comprehensive Metabo (SEE NOTE) 62 Sodium 142 mEq/L 134 - 153 Potassium 5.4 mEq/L High 3.6 - 5.0 Chloride 109 mEq/L High 98 - 107 Co2 22 mEq/L 22 - 30 Glucose 110 mg/dL High 70 - 99 BUN 48 mg/dL High 7 - 21 Creatinine 1.6 mg/dL High 0.7 - 1.5 BUN/Creat 30 High 8 - 27 Total Protein 6.4 g/dL 6.3 - 8.2 Albumin 4.2 g/dL 3.9 - 5.0 Globulin 2.2 GM/DL Low 2.4 - 3.2 A/G Ratio 1.9 0.8 - 2.0 Calcium 9.3 mg/dL 8.4 - 10.2 Total Bili <0.7 mg/dL 0.2 - 1.3 Alkaline Phos 219 U/L High 38 - 126 Sgot/Ast 20 U/L 5 - 40 SGPT/Alt 16 U/L 7 - 56 Anion Gap 11.0 mmol/L 8.0 - 16.0 Age 65 yrs Non-Aa GFR 46 mL/min Afr Amer GFR 56 mL/min 63 Cve Panel 11/22/[address] [address] [phone] Cve Panel (SEE NOTE) 64 Cholesterol 109 mg/dL Low 131 - 200 Triglycerides 45 mg/dL 35 - 160 HDL 45 mg/dL 29 - 86 LDL 66 mg/dL 65 - 175 Risk Factor 2.4 Low 3.4 - 4.9 LDL/HDL 1.47 1.00 - 3.55 65 Laboratory test finding 11/22/[address] [address] [phone] TSH Highly Sensitive 3.34 uIU/mL 0.47 - 5.0 1 Pro-BNP 4405 pg/mL High 0 - 125 1 COMPLETE BLOOD COUNT 2 LIPID PANEL 3 CVE RISK CHOL/HDL LDL/HDL MEN: 1/2 AVERAGE 3.43 1.00 AVERAGE 4.97 3.55 2X AVERAGE 9.55 6.25 3X AVERAGE 23.99 7.99 WOMEN: 1/2 AVERAGE 3.27 1.47 AVERAGE 4.44 3.22 2X AVERAGE 7.05 5.03 3X AVERAGE 11.04 6.14 4 COMPREHENSIVE METABOLIC PANE L 5 Male GFR Interprentation 20-49 yrs >60 mL/min Normal 50-59 yrs >56 mL/min Normal 60-69 yrs >49 mL/min Normal 70-79yrs >42 mL/min Normal 80 and above >35 mL/min Normal Female GFR Interpretation 20-39 yrs >60 mL/min Normal 40-49 yrs >58 mL/min Normal 50-59 yrs >51 mL/min Normal 60-69 yrs >45 mL/min Normal 70-79 yrs >39 mL/min Normal 80 and above >32 mL/min Normal 6 COMPLETE BLOOD COUNT 7 COMPREHENSIVE METABOLIC PANE L 8 Male GFR Interprentation 20-49 yrs >60 mL/min Normal 50-59 yrs >56 mL/min Normal 60-69 yrs >49 mL/min Normal 70-79yrs >42 mL/min Normal 80 and above >35 mL/min Normal Female GFR Interpretation 20-39 yrs >60 mL/min Normal 40-49 yrs >58 mL/min Normal 50-59 yrs >51 mL/min Normal 60-69 yrs >45 mL/min Normal 70-79 yrs >39 mL/min Normal 80 and above >32 mL/min Normal 9 COMPLETE BLOOD COUNT 10 COMPREHENSIVE METABOLIC PANE L 11 Male GFR Interprentation 20-49 yrs >60 mL/min Normal 50-59 yrs >56 mL/min Normal 60-69 yrs >49 mL/min Normal 70-79yrs >42 mL/min Normal 80 and above >35 mL/min Normal Female GFR Interpretation 20-39 yrs >60 mL/min Normal 40-49 yrs >58 mL/min Normal 50-59 yrs >51 mL/min Normal 60-69 yrs >45 mL/min Normal 70-79 yrs >39 mL/min Normal 80 and above >32 mL/min Normal 12 TROPONIN T 0.1 ng/ml Recommended as the clinical th reshold value for Troponin T. 13 TROPONIN T 0.1 ng/ml Recommended as the clinical th reshold value for Troponin T. 14 COMPLETE BLOOD COUNT 15 { SICKLE CELL (NORMAL: NONE SEEN ) 16 COMMENT: _FEW_LARGE_PLATELET S_OBSERVED. 01/21/21.0452.LBS. . . 17 COMPREHENSIVE METABOLIC PANE L 18 Male GFR Interprentation 20-49 yrs >60 mL/min Normal 50-59 yrs >56 mL/min Normal 60-69 yrs >49 mL/min Normal 70-79yrs >42 mL/min Normal 80 and above >35 mL/min Normal Female GFR Interpretation 20-39 yrs >60 mL/min Normal 40-49 yrs >58 mL/min Normal 50-59 yrs >51 mL/min Normal 60-69 yrs >45 mL/min Normal 70-79 yrs >39 mL/min Normal 80 and above >32 mL/min Normal 19 TROPONIN T 0.1 ng/ml Recommended as the clinical th reshold value for Troponin T. 20 TROPONIN T 0.1 ng/ml Recommended as the clinical th reshold value for Troponin T. 21 TROPONIN T 0.1 ng/ml Recommended as the clinical th reshold value for Troponin T. 22 *FOR MEDICAL PURPOSES ONLY* 23 COMPLETE BLOOD COUNT 24 TROPONIN T 0.1 ng/ml Recommended as the clinical th reshold value for Troponin T. 25 COMPREHENSIVE METABOLIC PANE L 26 Male GFR Interprentation 20-49 yrs >60 mL/min Normal 50-59 yrs >56 mL/min Normal 60-69 yrs >49 mL/min Normal 70-79yrs >42 mL/min Normal 80 and above >35 mL/min Normal Female GFR Interpretation 20-39 yrs >60 mL/min Normal 40-49 yrs >58 mL/min Normal 50-59 yrs >51 mL/min Normal 60-69 yrs >45 mL/min Normal 70-79 yrs >39 mL/min Normal 80 and above >32 mL/min Normal 27 COMPLETE BLOOD COUNT 28 COMPREHENSIVE METABOLIC PANE L 29 Male GFR Interprentation 20-49 yrs >60 mL/min Normal 50-59 yrs >56 mL/min Normal 60-69 yrs >49 mL/min Normal 70-79yrs >42 mL/min Normal 80 and above >35 mL/min Normal Female GFR Interpretation 20-39 yrs >60 mL/min Normal 40-49 yrs >58 mL/min Normal 50-59 yrs >51 mL/min Normal 60-69 yrs >45 mL/min Normal 70-79 yrs >39 mL/min Normal 80 and above >32 mL/min Normal 30 Is patient fasting? N 31 COMPLETE BLOOD COUNT 32 TROPONIN T 0.1 ng/ml Recommended as the clinical th reshold value for Troponin T. 33 COMPREHENSIVE METABOLIC PANE L 34 Male GFR Interprentation 20-49 yrs >60 mL/min Normal 50-59 yrs >56 mL/min Normal 60-69 yrs >49 mL/min Normal 70-79yrs >42 mL/min Normal 80 and above >35 mL/min Normal Female GFR Interpretation 20-39 yrs >60 mL/min Normal 40-49 yrs >58 mL/min Normal 50-59 yrs >51 mL/min Normal 60-69 yrs >45 mL/min Normal 70-79 yrs >39 mL/min Normal 80 and above >32 mL/min Normal 35 COMPLETE BLOOD COUNT 36 COMPREHENSIVE METABOLIC PANE L 37 Male GFR Interprentation 20-49 yrs >60 mL/min Normal 50-59 yrs >56 mL/min Normal 60-69 yrs >49 mL/min Normal 70-79yrs >42 mL/min Normal 80 and above >35 mL/min Normal Female GFR Interpretation 20-39 yrs >60 mL/min Normal 40-49 yrs >58 mL/min Normal 50-59 yrs >51 mL/min Normal 60-69 yrs >45 mL/min Normal 70-79 yrs >39 mL/min Normal 80 and above >32 mL/min Normal 38 COMPLETE BLOOD COUNT 39 COMPREHENSIVE METABOLIC PANE L 40 Male GFR Interprentation 20-49 yrs >60 mL/min Normal 50-59 yrs >56 mL/min Normal 60-69 yrs >49 mL/min Normal 70-79yrs >42 mL/min Normal 80 and above >35 mL/min Normal Female GFR Interpretation 20-39 yrs >60 mL/min Normal 40-49 yrs >58 mL/min Normal 50-59 yrs >51 mL/min Normal 60-69 yrs >45 mL/min Normal 70-79 yrs >39 mL/min Normal 80 and above >32 mL/min Normal 41 TROPONIN T 0.1 ng/ml Recommended as the clinical th reshold value for Troponin T. 42 COMPREHENSIVE METABOLIC PANE L 43 Male GFR Interprentation 20-49 yrs >60 mL/min Normal 50-59 yrs >56 mL/min Normal 60-69 yrs >49 mL/min Normal 70-79yrs >42 mL/min Normal 80 and above >35 mL/min Normal Female GFR Interpretation 20-39 yrs >60 mL/min Normal 40-49 yrs >58 mL/min Normal 50-59 yrs >51 mL/min Normal 60-69 yrs >45 mL/min Normal 70-79 yrs >39 mL/min Normal 80 and above >32 mL/min Normal 44 COMPLETE BLOOD COUNT 45 TROPONIN T 0.1 ng/ml Recommended as the clinical th reshold value for Troponin T. 46 Can run on todays blood 47 TROPONIN T 0.1 ng/ml Recommended as the clinical th reshold value for Troponin T. 48 COMPREHENSIVE METABOLIC PANE L 49 Male GFR Interprentation 20-49 yrs >60 mL/min Normal 50-59 yrs >56 mL/min Normal 60-69 yrs >49 mL/min Normal 70-79yrs >42 mL/min Normal 80 and above >35 mL/min Normal Female GFR Interpretation 20-39 yrs >60 mL/min Normal 40-49 yrs >58 mL/min Normal 50-59 yrs >51 mL/min Normal 60-69 yrs >45 mL/min Normal 70-79 yrs >39 mL/min Normal 80 and above >32 mL/min Normal 50 TROPONIN T 0.1 ng/ml Recommended as the clinical th reshold value for Troponin T. 51 COMPLETE BLOOD COUNT 52 TROPONIN T 0.1 ng/ml Recommended as the clinical th reshold value for Troponin T. 53 COMPREHENSIVE METABOLIC PANE L 54 Male GFR Interprentation 20-49 yrs >60 mL/min Normal 50-59 yrs >56 mL/min Normal 60-69 yrs >49 mL/min Normal 70-79yrs >42 mL/min Normal 80 and above >35 mL/min Normal Female GFR Interpretation 20-39 yrs >60 mL/min Normal 40-49 yrs >58 mL/min Normal 50-59 yrs >51 mL/min Normal 60-69 yrs >45 mL/min Normal 70-79 yrs >39 mL/min Normal 80 and above >32 mL/min Normal 55 LIPID PANEL 56 CVE RISK CHOL/HDL LDL/HDL MEN: 1/2 AVERAGE 3.43 1.00 AVERAGE 4.97 3.55 2X AVERAGE 9.55 6.25 3X AVERAGE 23.99 7.99 WOMEN: 1/2 AVERAGE 3.27 1.47 AVERAGE 4.44 3.22 2X AVERAGE 7.05 5.03 3X AVERAGE 11.04 6.14 57 COMPLETE BLOOD COUNT 58 {SOURCE: Random Void~NURSE COLLECTED? N 59 URINALYSIS 60 COMPLETE BLOOD COUNT 61 {A1] {HB] 62 COMPREHENSIVE METABOLIC PANE L 63 Male GFR Interprentation 20-49 yrs >60 mL/min Normal 50-59 yrs >56 mL/min Normal 60-69 yrs >49 mL/min Normal 70-79yrs >42 mL/min Normal 80 and above >35 mL/min Normal Female GFR Interpretation 20-39 yrs >60 mL/min Normal 40-49 yrs >58 mL/min Normal 50-59 yrs >51 mL/min Normal 60-69 yrs >45 mL/min Normal 70-79 yrs >39 mL/min Normal 80 and above >32 mL/min Normal 64 LIPID PANEL 65 CVE RISK CHOL/HDL LDL/HDL MEN: 1/2 AVERAGE 3.43 1.00 AVERAGE 4.97 3.55 2X AVERAGE 9.55 6.25 3X AVERAGE 23.99 7.99 WOMEN: 1/2 AVERAGE 3.27 1.47 AVERAGE 4.44 3.22 2X AVERAGE 7.05 5.03 3X AVERAGE 11.04 6.14 Procedures Date Code Description Status 03/14/2021 75569 EKG Completed 03/14/2021 04925 Office/Outpatient Established Mo d MDM 30-39 Min Completed 02/10/2021 03010 Office/Outpatient Established Mo d MDM 30-39 Min Completed 01/23/2021 19227 Hospital Disch MGMT Completed 01/22/2021 61899 Hospital Care Low Completed 01/21/2021 32275 Hospital Care Moderate Completed 01/20/2021 99554 Hospital Care Initial Level 2 Co mpleted 01/08/2021 58060 Hospital Disch MGMT Completed 01/07/2021 81824 Hospital Care Low Completed 01/06/2021 74271 Hospital Care Low Completed 01/05/2021 21453 Hospital Care Moderate Completed 01/04/2021 96999 Hospital Care Moderate Completed 01/03/2021 52351 Hospital Care Initial Level 2 Co mpleted 12/24/2020 29222 Office/Outpatient Established Lo w MDM 20-29 Min Completed 12/23/2020 17206 Myocardial Perfusion,WM & Ef Com pleted 12/19/2020 89349 Office/Outpatient Established Mo d MDM 30-39 Min Completed 12/19/2020 35806 EKG Completed 12/17/2020 22097 Office/Outpatient Established Mo d MDM 30-39 Min Completed 12/12/2020 57869 Office/Outpatient Established Mo d MDM 30-39 Min Completed 11/26/2020 56033 Office/Outpatient Established Mo d MDM 30-39 Min Completed 11/26/2020 94559 Echocardiogram, Complete Complet ed 11/26/2020 50039 EKG Completed 11/22/2020 88387 Office/Outpatient Established Mo d MDM 30-39 Min Completed 10/22/2020 26146 Office/Outpatient Established Mo d MDM 30-39 Min Completed Encounters Type Date Location Provider Dx Diagnosis Office Visit 03/14/2021 11:15a [facility] Dave Elizondo [facility] I50.20 Unspecified systolic (congestive) heart failure I11.9 Hypertensive heart disease w [facility] heart failure Z01.810 Encounter for preprocedural cardiovascular examination I49.49 Other premature depolarizati on Office Visit 02/10/2021 2:45p [facility] Dave Elizondo M.D[facility] I50.20 Unspecified systolic (congestive) heart failure I42.9 Cardiomyopathy, unspecified I20.9 Angina pectoris, unspecified I11.9 Hypertensive heart disease w [facility] heart failure Office Visit 12/24/2020 11:30a [facility] Dave Elizondo M.D[facility] I11.9 Hypertensive heart disease without heart failure E78.5 Hyperlipidemia, unspecified I42.9 Cardiomyopathy, unspecified Office Visit 12/19/2020 10:15a [facility] Dave Elizondo M.D[facility]. I11.9 Hypertensive heart disease without heart failure D50.9 Iron deficiency anemia, unsp ecified E78.5 Hyperlipidemia, unspecified I50.20 Unspecified systolic (conges tive) heart failure I49.49 Other premature depolarizati on Office Visit 12/17/2020 10:15a [facility] Dave Elizondo M.D[facility]. [facility]. I11.9 Hypertensive heart disease without heart failure K59.00 Constipation, unspecified I50.20 Unspecified systolic (conges tive) heart failure I42.9 Cardiomyopathy, unspecified Office Visit 12/12/2020 10:00a [facility] Dave Elizondo M.D[facility]. [facility]. I11.9 Hypertensive heart disease without heart failure J43.9 Emphysema, unspecified Office Visit 11/26/2020 10:30a [facility] Dave Elizondo M.D[facility]. [facility]. I50.20 Unspecified systolic (congestive) heart failure I11.9 Hypertensive heart disease w [facility] heart failure J06.9 Acute upper respiratory infe ction, unspecified I42.9 Cardiomyopathy, unspecified I49.49 Other premature depolarizati on Office Visit 11/22/2020 10:00a [facility] Dave Elizondo M.D[facility]. [facility] I50.20 Unspecified systolic (congestive) heart failure I11.9 [facility] E[facility].5 Hyperlipidemia, unspecified Office Visit 10/22/2020 11:00a [facility] Dave Elizondo M.D[facility]. I11.9 Hypertensive heart disease without heart failure E78.5 Hyperlipidemia, unspecified I50.20 Unspecified systolic (conges tive) heart failure I95.9 Hypotension, unspecified Assessments Date Code Description Provider 03/14/2021 I50.20 Unspecified systolic (congestive ) heart failure Dave [facility]izondo M[facility] 03/14/2021 I11.9 Hypertensive heart disease witho ut heart failure Dave Elizondo M.D[facility] 03/14/2021 Z01.810 Encounter for preprocedural card iovascular examination Dave Elizondo M.D[facility] 03/14/2021 I49.49 Other premature depolarization Sandra Elizondo M.D[facility] 02/10/2021 I50.20 Unspecified systolic (congestive ) heart failure Dave Elizondo [facility] 02/10/2021 I42.9 Cardiomyopathy, unspecified Samreen Elizondo M.D[facility]. 02/10/2021 I20.9 Angina pectoris, unspecified Errol Elizondo M.D[facility] 02/10/2021 I11.9 Hypertensive heart disease witho ut heart failure Dave Elizondo M[facility] 01/23/2021 I25.119 Atherosclerotic hear t disease of [place] coronary artery with unspecified angina pectoris Dave Elizondo M.D[facility] 01/23/2021 I50.20 Unspecified systolic (congestive ) heart failure Dave Elizondo M.[facility] 01/23/2021 I42.9 Cardiomyopathy, unspecified Samreen Elizondo M.D[facility] 01/23/2021 I48.0 Paroxysmal atrial fibrillation Sandra Elizondo M.D[facility] 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 01/22/2021 I50.20 Unspecified systolic (congestive ) heart failure Dave Elizondo M.[facility] 01/22/2021 I42.9 Cardiomyopathy, unspecified Samreen Elizondo M.D[facility] 01/22/2021 I48.0 Paroxysmal atrial fibrillation Sandra Elizondo M.D[facility] 01/21/2021 I25.119 Atherosclerotic hear t disease of [place] coronary artery with unspecified angina pectoris Dave Elizondo M.D[facility] 01/21/2021 I50.20 Unspecified systolic (congestive ) heart failure Dave Elizondo M.[facility] 01/21/2021 I48.0 Paroxysmal atrial fibrillation Sandra Elizondo M.D[facility] 01/08/2021 I50.20 Unspecified systolic (congestive ) heart failure Dave Elizondo M.[facility] 01/08/2021 I42.9 Cardiomyopathy, unspecified Samreen Elizondo M.D[facility] 01/08/2021 I25.10 Atherosclerotic hear t disease of [place] coronary artery without angina pectoris Dave Elizondo M.[facility] 01/08/2021 J44.9 Chronic obstructive pulmonary di sease, unspecified Dave Elizondo [facility] 01/07/2021 I50.20 Unspecified systolic (congestive ) heart failure Dave Elizondo M.[facility] 01/07/2021 I42.9 Cardiomyopathy, unspecified Samreen Elizondo M.D[facility] 01/07/2021 I25.10 Atherosclerotic hear t disease of [place] coronary artery without angina pectoris Dave Elizondo M.D[facility] 01/07/2021 J44.9 Chronic obstructive pulmonary di sease, unspecified Dave [facility]izondo [facility] 01/06/2021 I50.20 Unspecified systolic (congestive ) heart failure Dave Elizondo M.[facility] 01/06/2021 I42.9 Cardiomyopathy, unspecified Samreen Elizondo M.D[facility] 01/06/2021 I25.10 Atherosclerotic hear t disease of [place] coronary artery without angina pectoris Dave Elizondo M.[facility] 01/06/2021 J44.9 Chronic obstructive pulmonary di sease, unspectaylor Elizondo M.D[facility]. 01/05/2021 I50.20 Unspecified systolic (congestive ) heart failure Dave Elizondo [facility] 01/05/2021 I42.9 Cardiomyopathy, unspecified Samreen Elizondo M.D[facility] 01/05/2021 I25.10 Atherosclerotic hear t disease of [place] coronary artery without angina pectoris Dave Elizondo M.[facility] 01/05/2021 J44.9 Chronic obstructive pulmonary di sease, fabrizio Elizondo M.D[facility]. 01/04/2021 I50.20 Unspecified systolic (congestive ) heart failure Dave [facility]ondo [facility] 01/04/2021 I42.9 Cardiomyopathy, unspecified Samreen Elizondo M.D[facility] 01/04/2021 I25.10 Atherosclerotic hear t disease of [place] coronary artery without angina pectoris Dave Elizondo M.[facility] 01/04/2021 J44.9 Chronic obstructive pulmonary di sease, unspecified Dave [facility]ondo [facility] 01/03/2021 I50.20 Unspecified systolic (congestive ) heart failure Dave Elizondo M.[facility] 01/03/2021 I42.9 Cardiomyopathy, unspecified Samreen Elizondo M.D[facility] 01/03/2021 I25.10 Atherosclerotic hear t disease of [place] coronary artery without angina pectoris Dave Elizondo M.[facility] 01/03/2021 J44.9 Chronic obstructive pulmonary di sease, unspecified Dave [facility]ondo [facility] 12/24/2020 I11.9 Hypertensive heart disease witho ut heart failure Dave Elizondo M.[facility] 12/24/2020 E78.5 Hyperlipidemia, unspecified Samreen Elizondo M.D[facility] 12/24/2020 I42.9 Cardiomyopathy, unspecified Samreen [facility]ondo M.[facility] 12/23/2020 I25.10 Atherosclerotic hear t disease of [place] coronary artery without angina pectoris Dave [facility]ondo M.[facility] 12/19/2020 I11.9 Hypertensive heart disease witho ut heart failure Dave [facility]ondo [facility] 12/19/2020 D50.9 Iron deficiency anemia, unspecif ied Dave [facility]ondo M.[facility] 12/19/2020 E78.5 Hyperlipidemia, unspecified Samreen [facility]ondo M.[facility] 12/19/2020 I50.20 Unspecified systolic (congestive ) heart failure Dave Elizondo M.[facility] 12/19/2020 I49.49 Other premature depolarization Sandra Elizondo M.D.,[facility]. 12/17/2020 I11.9 Hypertensive heart disease witho ut heart failure Dave Elizondo M.D[facility] 12/17/2020 K59.00 Constipation, unspecified Dave Elizondo M.D[facility] 12/17/2020 I50.20 Unspecified systolic (congestive ) heart failure Dave Elizondo M.D[facility] 12/17/2020 I42.9 Cardiomyopathy, unspecified Samreen Elizondo M.D[facility]. 12/12/2020 I11.9 Hypertensive heart disease witho tx heart failure Dave Elizondo M.D[facility] 12/12/2020 J43.9 Emphysema, unspecified Dave silva M.D.,[facility]. 11/26/2020 I50.20 Unspecified systolic (congestive ) heart failure Dave Elizondo M.D[facility] 11/26/2020 I11.9 Hypertensive heart disease witho tx heart failure Dave Elizondo M.D[facility]. 11/26/2020 J06.9 Acute upper respiratory infectio n, unspectaylor Elizondo M.D.,[facility]. 11/26/2020 I42.9 Cardiomyopathy, unspecified Samreen Elizondo M.D[facility]. 11/26/2020 I49.49 Other premature depolarization Sandra Elizondo M.D[facility] 11/22/2020 I50.20 Unspecified systolic (congestive ) heart failure Dave Elizondo M.D[facility] 11/22/2020 I11.9 Hypertensive heart disease witho tx heart failure Dave Elizondo M.D[facility]. 11/22/2020 E78.5 Hyperlipidemia, unspecified Samreen Elizondo M.D[facility]. 10/22/2020 I11.9 Hypertensive heart disease witho tx heart failure Dave Elizondo M.D[facility]. 10/22/2020 E78.5 Hyperlipidemia, unspectaylor Elizondo M.D.,[facility]. 10/22/2020 I50.20 Unspecified systolic (congestive ) heart failure Dave Elizondo M.D[facility]. 10/22/2020 I95.9 Hypotension, unspecified Dave greene M.D.,[facility]. Plan of Treatment Future Appointment(s):* 04/14/2021 1:45 pm - Dave Elizondo M[facility] at [facility] Referrals Refer to Dr Reason for Referral Status Appt Date Asuncion Underwood MD Please eval. and treat this patient for high creatinine, ENDY.. Thank you. Created [id number] [place], [place] [id number] [phone] Mick Ching MD Please eval. and treat this patient for positive nuclear stress test, he needs a cardiac cath. Thank you. Created [address] [facility] [address] [place] [address] [phone]
--- OUTSIDE RECORDS SUMMARY | 2021-03-19 12:31 | CCD | Continuity of Care Document ---
Author Adebayo Serrano Organization Unknown Address [address] [place] [id number] Phone [phone] Care Team Providers Care Hardwood Sawyer Name Role Phone Jon Elizondo M.D. AUTM [phone] Myriam Jauregui M.D. AUTM [phone] [facility] Care Everywhere AUTM [phone] Cam Foster M.D. AUTM [phone] Problems Active Problems Provider Date Carotid artery occlusion Onset: 08/18/19 20 Atherosclerosis of arteries of the extremities Onset: 08/18/2019 Atrial fibrillation Onset: 09/19/2019 Hyperlipidemia Onset: 09/19/2019 Congestive heart failure Onset: 09/19/19 20 Chronic obstructive lung disease Onset: 09/19/2019 Transient cerebral ischemia Onset: 09/18 Social History Type Date Description Comments Sex Unknown ETOH Use Occasionally consumes alcohol Tobacco Use Reviewed: 03/10/21 Patient is a current smoker, smokes every day 1/2 ppd Smoking Status Reviewed: 03/10/21 Patient is a current smoker, smokes every day 1/2 ppd Allergies and adverse reactions Active Allergies Criticality Reaction | Severity Comments Date Skelaxin Unable to assess criticality 08/18/2019 Medications Active Medications SIG Qnty Indications Ordering Provide r Date [place] Onset Extract qd Unknown Nitro-Dur 0.4mg/HR Patches 24HR 1 patch apply on every morning and off every night at bedtime Unknown Vitamin C 500mg Tablets 1 by mouth every day Unknown Metoprolol Succinate ER 25mg Tablets ER 24HR every day Unknown Levothyroxine Sodium 75mcg Tablets every day Unknown Bumetanide 1mg Tablets bid Unknown Verquvo 2.5mg Tablets qd Unknown Aspirin 325mg Tablets DR aubree fulton day Unknown Ferrous Sulfate 324(65Fe) mg Table ts DR bid Unknown Allopurinol 300mg Tablets jessica ry day Unknown Multivitamin Tablets bid Unknown Nitroglycerin 0.4mg Tablets Sub place 1 tablet (0.4 mg total) under the tongue every 5 (five) minutes as needed for chest pain Unknown Fluticasone Propionate 50mcg/Act Suspension 2 sprays each nostril every day Unknown Magnesium Oxide 400mg Tablets bid Unknown Omeprazole 20mg Capsules DR souleymane cuenca Unknown Loratadine 10mg Capsules 1 by mouth every day Unknown Atorvastatin Calcium 80mg Tablets every day Unknown Immunizations Description No Information Available Vital Signs Date Vital Result Comment 03/10/2021 8:51am BP Systolic Right Arm 130 mmHg BP Diastolic Right Arm 70 mmHg BP Systolic Left Arm 100 mmHg BP Diastolic Left Arm 60 mmHg Body Temperature 96.9 F Height 69 inches 5'9" Weight 195.00 lb Weight 88.452 kg BMI (Body Mass Index) 28.8 kg/m2 11/05/2020 10:05am BP Systolic Right Arm 130 mmHg BP Diastolic Right Arm 60 mmHg BP Systolic Left Arm 108 mmHg BP Diastolic Left Arm 50 mmHg Body Temperature 97.2 F Height 69 inches 5'9" Weight 185.00 lb Weight 83.916 kg BMI (Body Mass Index) 27.3 kg/m2 Results Test Acquired Date Facility Test Result H/L Range Note Xray 11/05/2020 PT Choice Subclavian Artery Bypass Ultrasound <pending> Procedures Date Code Description Status 03/10/2021 56794 Office/Outpatient Established w [facility] 20-29 Min Completed 03/10/2021 30267 Duplex Scan Extracranial Arterie s, Complete Bilateral Study Completed 11/05/2020 82557 Office/Outpatient Established w [facility] 20-29 Min Completed 11/05/2020 50931 Duplex Scan Extracranial Arterie s, Complete Bilateral Study Completed Medical Devices Description No Information Available Encounters Type Date Location Provider Dx Diagnosis Office Visit 03/10/2021 9:30a Main Office Anton Odonnell M.D. Z48.81 2 Encntr for surgical aftcr following surgery on the circ sys I65.23 Occlusion and stenosis of bi lateral carotid arteries I65.8 Occlusion and stenosis of ot her precerebral arteries Office Visit 11/05/2020 10:30a Main Office Jeanne De Luna Z48.812 Encntr for surgical aftcr following surgery on the circ sys I65.23 Occlusion and stenosis of bi lateral carotid arteries Assessments Date Code Description Provider 03/10/2021 I65.23 Occlusion and stenosis of bilate ral carotid arteries Anton Odonnell M.D. 03/10/2021 Z48.812 Encounter for surgic al aftercare following surgery on the circulatory system Anton Odonnell M.D. 03/10/2021 Z48.812 Encounter for surgic al aftercare following surgery on the circulatory system Anton Odonnell M.D. 03/10/2021 I65.23 Occlusion and stenosis of bilate ral carotid arteries Vascular Lab 03/10/2021 I65.23 Occlusion and stenosis of bilate ral carotid arteries Anton Odonnell M.D. 03/10/2021 Z48.812 Encounter for surgic al aftercare following surgery on the circulatory system V[facility] Lab 03/10/2021 I65.8 Occlusion and stenosis of other precerebral arteries Anton Odonnell M.D. 11/05/2020 I65.23 Occlusion and stenosis of bilate ral carotid arteries Anton Odonnell M.D. 11/05/2020 Z48.812 Encounter for surgic al aftercare following surgery on the circulatory system Jeanne De Luna 11/05/2020 Z48.812 Encounter for surgic al aftercare following surgery on the circulatory system Anton Odonnell M.D. 11/05/2020 I65.23 Occlusion and stenosis of bilate ral carotid arteries Vascular Lab 11/05/2020 I65.23 Occlusion and stenosis of bilate ral carotid arteries Jeanne De Luna 11/05/2020 Z48.812 Encounter for surgic al aftercare following surgery on the circulatory system Vascular Lab Plan of Treatment Future Appointment(s):* 09/10/2021 9:30 am - Vascular Lab at Main Office 03/10/2021 - Anton Odonnell M.D.* Z48.812 Encntr for surgical aftcr following surgery on the circ sys * I65.23 Occlusion and stenosis of bilateral carotid arteries * I65.8 Occlusion and stenosis of other precerebral arteries Functional Status Description No Information Available Mental Status Description No Information Available Referrals Description No Information Available
--- OUTSIDE RECORDS SUMMARY | 2021-03-19 12:31 | CCD | Continuity of Care Document ---
Author Author Adebayo RACHER P. C. Organization Unknown Address [address] [place] [id number] Phone [phone] Care Team Providers Care Director Of Safety And Security Name Role Phone Sami Kalyan [facility] AUTM [phone] Mick Ching MD AUTM [phone] Asuncion Underwood MD AUTM [phone] DAVE ELIZONDO M.D. P.C. AUTM [phone] Social History Type Date Description Comments Sex [...] day 60tabs Dave Elizondo M.D[facility]P.[facility]. 2020 Ipratropium [place]/Albuterol Sulfate 0.5-2.5(3)mg/3ML Solution inhale 1 vial via [...] tablet by mouth daily Dave Elizondo M.D[facility]P.C[facility] [place] Mcmillin Extract 150mg Capsules take one tablet by [...] H/L Range Note Laboratory test finding 02/05/2021 [facility] [address] [place] [address] [phone] Iron 45 g/dL 42 - 135 Magnesium Serum 1.9 mg/dL 1.7 - 2.2 CBC W/Automated Diff 02/05/[address] [address] [phone] CBC W/Automated Diff (SEE NOTE) 1 WBC [...] Lymph 10.4 % Low 25.0 - 40.0 [place] 8.0 % 3.0 - 8.0 Eos 2.5 % 0.0 - 7.0 Baso 0.3 % 0.0 - 2.0 %Ig 0.2 % High 0.0 - 0.0 %NRBC 0.0 % 0.0 - 0.0 #Neut 4.71 10^3/uL 2.00 - 6.90 #Lymph 0.62 10^3/uL 0.60 - 3.40 #[place] 0.48 10^3/uL 0.00 - 0.90 #Eos 0.15 10^3/uL 0.00 - 0.70 #Baso 0.02 10^3/uL 0.00 - 0.20 #Ig 0.01 10^3/uL 0.00 - 0.10 #NRBC 0.00 10^3/uL 0.00 - 0.00 Manual Diff NOT INDICATED RBC Morph NOT INDICATED Laboratory test finding 02/05/[address] [address] [phone] TSH Highly Sensitive 10.10 uIU/mL High 0.47 - 5. 01 Vitamin B12 Serum 1363 pg/mL High 232 - 1245 Pro-BNP 9221 pg/mL High 0 - 125 Cve Panel 02/05/[address] [address] [phone] Cve Panel (SEE NOTE) 2 Cholesterol 116 mg/dL Low 131 - 200 Triglycerides 71 mg/dL 35 - 160 HDL 48 mg/dL 29 - 86 LDL 62 mg/dL Low 65 - 175 Risk Factor 2.4 Low 3.4 - 4.9 LDL/HDL 1.29 1.00 - 3.55 3 Comprehensive Metabolic Panel 02/05/2021 [facility] [address] [place] [phone] [phone] Comprehensive Metabo (SEE NOTE) 4 Sodium 142 [...] >60 mL/min 5 CBC W/Automated Diff 01/23/[address] [address] [phone] CBC W/Automated Diff (SEE NOTE) 6 WBC [...] Lymph 9.0 % Low 25.0 - 40.0 [place] 8.5 % High 3.0 - 8.0 Eos 3.8 % 0.0 - 7.0 Baso 0.2 % 0.0 - 2.0 %Ig 0.2 % High 0.0 - 0.0 %NRBC 0.0 % 0.0 - 0.0 #Neut 4.51 10^3/uL 2.00 - 6.90 #Lymph 0.52 10^3/uL Low 0.60 - 3.40 #[place] 0.49 10^3/uL 0.00 - 0.90 #Eos 0.22 10^3/uL 0.00 - 0.70 #Baso 0.01 10^3/uL 0.00 - 0.20 #Ig 0.01 10^3/uL 0.00 - 0.10 #NRBC 0.00 10^3/uL 0.00 - 0.00 Manual Diff NOT INDICATED RBC Morph NOT INDICATED Laboratory test finding 01/23/2021 [facility] [address] [place] [address] [phone] Magnesium Serum 1.8 mg/dL 1.7 - 2.2 Comprehensive Metabolic Panel 01/23/2021 [facility] [address] [place] [address] [phone] Comprehensive Metabo (SEE NOTE) 7 Sodium 139 [...] 49 mL/min 8 CBC W/Automated Diff 01/22/[address] [phone] CBC W/Automated Diff (SEE NOTE) 9 WBC [...] Lymph 13.0 % Low 25.0 - 40.0 [place] 8.7 % High 3.0 - 8.0 Eos 3.9 % 0.0 - 7.0 Baso 0.4 % 0.0 - 2.0 %Ig 0.4 % High 0.0 - 0.0 %NRBC 0.0 % 0.0 - 0.0 #Neut 3.81 10^3/uL 2.00 - 6.90 #Lymph 0.67 10^3/uL 0.60 - 3.40 #[place] 0.45 10^3/uL 0.00 - 0.90 #Eos 0.20 10^3/uL 0.00 - 0.70 #Baso 0.02 10^3/uL 0.00 - 0.20 #Ig 0.02 10^3/uL 0.00 - 0.10 #NRBC 0.00 10^3/uL 0.00 - 0.00 Manual Diff NOT INDICATED RBC Morph NOT INDICATED Laboratory test finding 01/22/[facility] [address] [place] [address] [phone] Pro-BNP 6385 pg/mL High 0 - 125 Magnesium Serum 1.8 mg/dL 1.7 - 2.2 Comprehensive Metabolic Panel 01/22/2021 [facility] [address] [place] [address] [phone] Comprehensive Metabo (SEE NOTE) 10 Sodium 140 [...] 56 mL/min 11 Laboratory test finding 01/22/2021 [facility] [address] [place] [address] [phone] Troponin T 0.04 NG/ML 0.00 - 0.10 12 Laboratory test finding 01/21/2021 [facility] [address] [place] [address] [phone] Troponin T 0.07 NG/ML 0.00 - 0.10 13 Laboratory test finding 01/21/2021 [facility] [address] [place] [address] [phone] Iron 48 g/dL 42 - 135 Vitamin B12 Serum 1269 pg/mL High 232 - 1245 CBC W/Automated Diff 01/21/[address] [address] [phone] CBC W/Automated Diff (SEE NOTE) 14 WBC [...] Lymph 10.9 % Low 25.0 - 40.0 [place] 7.1 % 3.0 - 8.0 Eos 2.2 % 0.0 - 7.0 Baso 0.5 % 0.0 - 2.0 %Ig 0.2 % High 0.0 - 0.0 %NRBC 0.0 % 0.0 - 0.0 #Neut 4.37 10^3/uL 2.00 - 6.90 #Lymph 0.60 10^3/uL 0.60 - 3.40 #[place] 0.39 10^3/uL 0.00 - 0.90 #Eos 0.12 [...] Normal: Normal 16 Laboratory test finding 01/21/[address] [address] [phone] Magnesium Serum 2.0 mg/dL 1.7 - 2.2 Comprehensive Metabolic Panel 01/21/2021 [facility] [address] [place] [address] [phone] Comprehensive Metabo (SEE NOTE) 17 Sodium 140 [...] >60 mL/min 18 Laboratory test finding 01/21/2021 [facility] [address] [place] [address] [phone] Troponin T 0.06 NG/ML 0.00 - 0.10 19 Laboratory test finding 01/21/[address] [address] [phone] Troponin T 0.05 NG/ML 0.00 - 0.10 20 Laboratory test finding 01/21/[address] [address] [phone] Troponin T 0.05 NG/ML 0.00 - 0.10 21 Alcohol Ethyl Blood 01/20/[address] [address] [phone] Alcohol 70.0 mg/dL Alcohol % 0.07 % High 0.00 - 0.01 22 CBC W/Automated Diff 01/20/[address] [address] [phone] CBC W/Automated Diff (SEE NOTE) 23 WBC [...] Lymph 14.2 % Low 25.0 - 40.0 [place] 7.7 % 3.0 - 8.0 Eos 3.2 % 0.0 - 7.0 Baso 0.3 % 0.0 - 2.0 %Ig 0.3 % High 0.0 - 0.0 %NRBC 0.0 % 0.0 - 0.0 #Neut 4.66 10^3/uL 2.00 - 6.90 #Lymph 0.89 10^3/uL 0.60 - 3.40 #[place] 0.48 10^3/uL 0.00 - 0.90 #Eos 0.20 10^3/uL 0.00 - 0.70 #Baso 0.02 10^3/uL 0.00 - 0.20 #Ig 0.02 10^3/uL 0.00 - 0.10 #NRBC 0.00 10^3/uL 0.00 - 0.00 Manual Diff NOT INDICATED RBC Morph NOT INDICATED Laboratory test finding 01/20/2021 [facility] [address] [place] [address] [phone] Troponin T 0.03 NG/ML 0.00 - 0.10 24 Comprehensive Metabolic Panel 01/20/2021 [facility] [address] [place] [address] [phone] Comprehensive Metabo (SEE NOTE) 25 Sodium 140 [...] >60 mL/min 26 Laboratory test finding 01/20/[address] [phone] Pro-BNP 6632 pg/mL High 0 - 125 CBC W/Automated Diff 01/08/[address] [phone] CBC W/Automated Diff (SEE NOTE) 27 WBC [...] Lymph 9.1 % Low 25.0 - 40.0 [place] 10.7 % High 3.0 - 8.0 Eos 3.2 % 0.0 - 7.0 Baso 0.8 % 0.0 - 2.0 %Ig 0.2 % High 0.0 - 0.0 %NRBC 0.0 % 0.0 - 0.0 #Neut 3.84 10^3/uL 2.00 - 6.90 #Lymph 0.46 10^3/uL Low 0.60 - 3.40 #[place] 0.54 10^3/uL 0.00 - 0.90 #Eos 0.16 10^3/uL 0.00 - 0.70 #Baso 0.04 10^3/uL 0.00 - 0.20 #Ig 0.01 10^3/uL 0.00 - 0.10 #NRBC 0.00 10^3/uL 0.00 - 0.00 Manual Diff NOT INDICATED RBC Morph NOT INDICATED Comprehensive Metabolic Panel 01/08/[address] [address] [phone] Comprehensive Metabo (SEE NOTE) 28 Sodium 139 [...] >60 mL/min 29 CBC W/Automated Diff 01/07/[address] [address] [phone] CBC W/Automated Diff (SEE NOTE) 30, 31 [...] Lymph 10.9 % Low 25.0 - 40.0 [place] 9.1 % High 3.0 - 8.0 Eos 3.4 % 0.0 - 7.0 Baso 0.4 % 0.0 - 2.0 %Ig 0.4 % High 0.0 - 0.0 %NRBC 0.0 % 0.0 - 0.0 #Neut 3.77 10^3/uL 2.00 - 6.90 #Lymph 0.54 10^3/uL Low 0.60 - 3.40 #[place] 0.45 10^3/uL 0.00 - 0.90 #Eos 0.17 10^3/uL 0.00 - 0.70 #Baso 0.02 10^3/uL 0.00 - 0.20 #Ig 0.02 10^3/uL 0.00 - 0.10 #NRBC 0.00 10^3/uL 0.00 - 0.00 Manual Diff NOT INDICATED RBC Morph NOT INDICATED Laboratory test finding 01/07/2021 [facility] [address] [place] [address] [phone] Troponin T 0.02 NG/ML 0.00 - 0.10 32 Comprehensive Metabolic Panel 01/07/2021 [facility] [address] [place] [address] [phone] Comprehensive Metabo (SEE NOTE) 33 Sodium 139 [...] >60 mL/min 34 CBC W/Automated Diff 01/06/[address] [address] [phone] CBC W/Automated Diff (SEE NOTE) 35 WBC [...] Lymph 10.5 % Low 25.0 - 40.0 [place] 8.4 % High 3.0 - 8.0 Eos 2.3 % 0.0 - 7.0 Baso 0.3 % 0.0 - 2.0 %Ig 0.3 % High 0.0 - 0.0 %NRBC 0.0 % 0.0 - 0.0 #Neut 4.75 10^3/uL 2.00 - 6.90 #Lymph 0.64 10^3/uL 0.60 - 3.40 #[place] 0.51 10^3/uL 0.00 - 0.90 #Eos 0.14 10^3/uL 0.00 - 0.70 #Baso 0.02 10^3/uL 0.00 - 0.20 #Ig 0.02 10^3/uL 0.00 - 0.10 #NRBC 0.00 10^3/uL 0.00 - 0.00 Manual Diff NOT INDICATED RBC Morph NOT INDICATED Comprehensive Metabolic Panel 01/06/2021 [facility] [address] [place] [address] [phone] Comprehensive Metabo (SEE NOTE) 36 Sodium 141 [...] >60 mL/min 37 Laboratory test finding 01/06/2021 [facility] [address] [place] [address] [phone] Iron 40 g/dL Low 42 - 135 Laboratory test finding 01/05/2021 [facility] [address] [place] [address] [phone] Magnesium Serum 1.8 mg/dL 1.7 - 2.2 CBC W/Automated Diff 01/05/[address] [address] [phone] CBC W/Automated Diff (SEE NOTE) 38 WBC [...] Lymph 11.6 % Low 25.0 - 40.0 [place] 8.5 % High 3.0 - 8.0 Eos 1.7 % 0.0 - 7.0 Baso 0.6 % 0.0 - 2.0 %Ig 0.4 % High 0.0 - 0.0 %NRBC 0.0 % 0.0 - 0.0 #Neut 4.21 10^3/uL 2.00 - 6.90 #Lymph 0.63 10^3/uL 0.60 - 3.40 #[place] 0.46 10^3/uL 0.00 - 0.90 #Eos 0.09 10^3/uL 0.00 - 0.70 #Baso 0.03 10^3/uL 0.00 - 0.20 #Ig 0.02 10^3/uL 0.00 - 0.10 #NRBC 0.00 10^3/uL 0.00 - 0.00 Manual Diff NOT INDICATED RBC Morph NOT INDICATED Comprehensive Metabolic Panel 01/05/2021 [facility] [address] [place] [address] [phone] Comprehensive Metabo (SEE NOTE) 39 Sodium 141 [...] >60 mL/min 40 Laboratory test finding 01/04/2021 [facility] [address] [place] [address] [phone] Potassium 4.1 mEq/L 3.6 - 5.0 Laboratory test finding 01/04/2021 [facility] [address] [place] [address] [phone] Troponin T 0.02 NG/ML 0.00 - 0.10 41 Comprehensive Metabolic Panel 01/04/2021 [facility] [address] [place], [place] [phone] Comprehensive Metabo (SEE NOTE) 42 Sodium 142 [...] >60 mL/min 43 CBC W/Automated Diff 01/04/2021 [place] [address] [phone] CBC W/Automated Diff (SEE NOTE) 44 WBC [...] Lymph 12.8 % Low 25.0 - 40.0 [place] 8.0 % 3.0 - 8.0 Eos 2.1 % 0.0 - 7.0 Baso 0.3 % 0.0 - 2.0 %Ig 0.3 % High 0.0 - 0.0 %NRBC 0.0 % 0.0 - 0.0 #Neut 4.47 10^3/uL 2.00 - 6.90 #Lymph 0.75 10^3/uL 0.60 - 3.40 #[place] 0.47 10^3/uL 0.00 - 0.90 #Eos 0.12 10^3/uL 0.00 - 0.70 #Baso 0.02 10^3/uL 0.00 - 0.20 #Ig 0.02 10^3/uL 0.00 - 0.10 #NRBC 0.00 10^3/uL 0.00 - 0.00 Manual Diff NOT INDICATED RBC Morph NOT INDICATED Laboratory test finding 01/04/[address] [address] [phone] Magnesium Serum 1.8 mg/dL 1.7 - 2.2 Iron 41 g/dL Low 42 - 135 Laboratory test finding 01/04/[address] [phone] Troponin T 0.02 NG/ML 0.00 - 0.10 45 Laboratory test finding 01/03/2021 [facility] [address] [place] [address] [phone] Magnesium Serum 1.9 mg/dL 1.7 - 2.2 46 TSH Highly Sensitive 3.56 uIU/mL 0.47 - 5.01 T4 - Free 1.37 ng/dL 0.93 - 1.70 Laboratory test finding 01/03/2021 [facility] [address] [place], [place] [phone] Troponin T 0.02 NG/ML 0.00 - 0.10 47 Comprehensive Metabolic Panel 01/03/2021 [facility] [address] [place] [address] [phone] Comprehensive Metabo (SEE NOTE) 48 Sodium 143 [...] >60 mL/min 49 Laboratory test finding 01/03/[address] [address] [phone] Troponin T 0.02 NG/ML 0.00 - 0.10 50 Pro-BNP 6929 pg/mL High 0 - 125 CBC W/Automated Diff 01/03/[address] [address] [phone] CBC W/Automated Diff (SEE NOTE) 51 WBC [...] Lymph 8.7 % Low 25.0 - 40.0 [place] 6.6 % 3.0 - 8.0 Eos 0.9 % 0.0 - 7.0 Baso 0.3 % 0.0 - 2.0 %Ig 0.5 % High 0.0 - 0.0 %NRBC 0.0 % 0.0 - 0.0 #Neut 5.25 10^3/uL 2.00 - 6.90 #Lymph 0.55 10^3/uL Low 0.60 - 3.40 #[place] 0.42 10^3/uL 0.00 - 0.90 #Eos 0.06 10^3/uL 0.00 - 0.70 #Baso 0.02 10^3/uL 0.00 - 0.20 #Ig 0.03 10^3/uL 0.00 - 0.10 #NRBC 0.00 10^3/uL 0.00 - 0.00 Manual Diff NOT INDICATED RBC Morph NOT INDICATED Laboratory test finding 01/03/[address] [address] [phone] Troponin T 0.02 NG/ML 0.00 - 0.10 52 Laboratory test finding 12/12/[address] [address] [phone] Magnesium Serum 2.1 mg/dL 1.7 - 2.2 Pro-BNP 7997 pg/mL High 0 - 125 Comprehensive Metabolic Panel 12/12/2020 [facility] [address] [place] [address] [phone] Comprehensive Metabo (SEE NOTE) 53 Sodium 142 [...] GFR >60 mL/min 54 Cve Panel 12/12/[address] [address] [phone] Cve Panel (SEE NOTE) 55 Cholesterol 108 mg/dL Low 131 - 200 Triglycerides 52 mg/dL 35 - 160 HDL 40 mg/dL 29 - 86 LDL 68 mg/dL 65 - 175 Risk Factor 2.7 Low 3.4 - 4.9 LDL/HDL 1.70 1.00 - 3.55 56 CBC W/Automated Diff 12/12/[address] [address] [phone] CBC W/Automated Diff (SEE NOTE) 57 WBC [...] Lymph 7.8 % Low 25.0 - 40.0 [place] 7.1 % 3.0 - 8.0 Eos 0.7 % 0.0 - 7.0 Baso 0.3 % 0.0 - 2.0 %Ig 0.4 % High 0.0 - 0.0 %NRBC 0.0 % 0.0 - 0.0 #Neut 5.88 10^3/uL 2.00 - 6.90 #Lymph 0.55 10^3/uL Low 0.60 - 3.40 #[place] 0.50 10^3/uL 0.00 - 0.90 #Eos 0.05 10^3/uL 0.00 - 0.70 #Baso 0.02 10^3/uL 0.00 - 0.20 #Ig 0.03 10^3/uL 0.00 - 0.10 #NRBC 0.00 10^3/uL 0.00 - 0.00 Manual Diff NOT INDICATED RBC Morph NOT INDICATED Urinalysis 11/22/[address] [address] [phone] Urinalysis (SEE NOTE) 58, 59 Source R Color yellow Normal: Yellow Clarity clear Normal: Clear Spec [place] 1.015 1.001 - 1.030 pH 5 5 - 9 Glucose NORM Normal: Negative Bilirubin NEG Normal: Negative Ketone NEG Normal: Negative Protein NEG Normal: Negative Nitrite NEG Normal: Negative Blood NEG Normal: Negative Leuk Est NEG Normal: Negative Urobilinogen NOR less than 1.0 mg/dL Microscopic Not Indicate CBC W/Automated Diff 11/22/[address] [address] [phone] CBC W/Automated Diff (SEE NOTE) 60 WBC [...] Lymph 7.2 % Low 25.0 - 40.0 [place] 5.8 % 3.0 - 8.0 Eos 0.7 % 0.0 - 7.0 Baso 0.1 % 0.0 - 2.0 %Ig 0.4 % High 0.0 - 0.0 %NRBC 0.0 % 0.0 - 0.0 #Neut 5.73 10^3/uL 2.00 - 6.90 #Lymph 0.48 10^3/uL Low 0.60 - 3.40 #[place] 0.39 10^3/uL 0.00 - 0.90 #Eos 0.05 10^3/uL 0.00 - 0.70 #Baso 0.01 10^3/uL 0.00 - 0.20 #Ig 0.03 10^3/uL 0.00 - 0.10 #NRBC 0.00 10^3/uL 0.00 - 0.00 Manual Diff NOT INDICATED RBC Morph NOT INDICATED Laboratory test finding 11/22/2020 [facility] [address] [place] [address] [phone] Hgba1c 5.2 % 4.4 - 6.1 61 Iron 42 g/dL 42 - 135 Magnesium Serum 2.2 mg/dL 1.7 - 2.2 Comprehensive Metabolic Panel 11/22/2020 [facility] [address] [place] [address] [phone] Comprehensive Metabo (SEE NOTE) 62 Sodium 142 [...] GFR 56 mL/min 63 Cve Panel 11/22/[address] [address] [phone] Cve Panel (SEE NOTE) 64 Cholesterol 109 mg/dL Low 131 - 200 Triglycerides 45 mg/dL 35 - 160 HDL 45 mg/dL 29 - 86 LDL 66 mg/dL 65 - 175 Risk Factor 2.4 Low 3.4 - 4.9 LDL/HDL 1.47 1.00 - 3.55 65 Laboratory test finding 11/22/[address] [address] [phone] TSH Highly Sensitive 3.34 uIU/mL 0.47 - [...] 11.04 6.14 Procedures Date Code Description Status 02/10/2021 31308 Office/Outpatient Established Mo d MDM 30-39 Min Completed 01/23/2021 65341 Hospital Disch MGMT Completed 01/22/2021 33815 Hospital Care Low Completed 01/21/2021 32475 Hospital Care Moderate Completed 01/20/2021 68524 Hospital Care Initial Level 2 Co mpleted 01/08/2021 25123 Hospital Disch MGMT Completed 01/07/2021 45739 Hospital Care Low Completed 01/06/2021 31139 Hospital Care Low Completed 01/05/2021 29702 Hospital Care Moderate Completed 01/04/2021 38102 Hospital Care Moderate Completed 01/03/2021 63342 Hospital Care Initial Level 2 Co mpleted 12/24/2020 48223 Office/Outpatient Established Lo w MDM 20-29 Min Completed 12/23/2020 73484 Myocardial Perfusion,WM & Ef Com pleted 12/19/2020 44865 Office/Outpatient Established Mo d MDM 30-39 Min Completed 12/19/2020 47916 EKG Completed 12/17/2020 48674 Office/Outpatient Established Mo d MDM 30-39 Min Completed 12/12/2020 79684 Office/Outpatient Established Mo d MDM 30-39 Min Completed 11/26/2020 70324 Office/Outpatient Established Mo d MDM 30-39 Min Completed 11/26/2020 24751 Echocardiogram, Complete Complet ed 11/26/2020 77607 EKG Completed 11/22/2020 93012 Office/Outpatient Established Mo d MDM 30-39 Min Completed 10/22/2020 82904 Office/Outpatient Established Mo d MDM 30-39 Min Completed Encounters Type Date Location Provider Dx Diagnosis Office Visit 02/10/2021 2:45p [facility] Dave Elizondo M.D.,[facility]. C[facility] I50.20 Unspecified systolic (congestive) heart failure I42.9 Cardiomyopathy, unspecified I20.9 Angina pectoris, unspecified I11.9 Hypertensive heart disease w [facility] heart failure Office Visit 12/24/2020 11:30a [facility] Dave Elizondo M.D.,[facility]. C. I11.9 Hypertensive heart disease without heart failure E78.5 Hyperlipidemia, unspecified I42.9 Cardiomyopathy, unspecified Office Visit 12/19/2020 10:15a [facility] Dave Elizondo M.D.,[facility]. C. I11.9 Hypertensive heart disease without heart failure D50.9 Iron deficiency anemia, unsp ecified E78.5 Hyperlipidemia, unspecified I50.20 Unspecified systolic (conges tive) heart failure I49.49 Other premature depolarizati on Office Visit 12/17/2020 10:15a [facility] Dave Elizondo M.D.,[facility]. C. I11.9 Hypertensive heart disease without heart failure K59.00 Constipation, unspecified I50.20 Unspecified systolic (conges tive) heart failure I42.9 Cardiomyopathy, unspecified Office Visit 12/12/2020 10:00a [facility] Dave Elizondo M.D.,[facility]. C. I11.9 Hypertensive heart disease without heart failure J43.9 Emphysema, unspecified Office Visit 11/26/2020 10:30a [facility] Dave Elizondo M.D.,[facility]. I50.20 Unspecified systolic (congestive) heart failure I11.9 Hypertensive heart disease w [facility] heart failure J06.9 Acute upper respiratory infe ction, unspecified I42.9 Cardiomyopathy, unspecified I49.49 Other premature depolarizati on Office Visit 11/22/2020 10:00a [facility] Dave Elizondo M.D.,P. C. I50.20 Unspecified systolic (congestive) heart failure I11.9 [facility] E78.5 Hyperlipidemia, unspecified Office Visit 10/22/2020 11:00a [facility] Dave Elizondo M.D.,[facility]. C. I11.9 Hypertensive heart disease without heart failure E78.5 Hyperlipidemia, unspecified I50.20 Unspecified systolic (conges tive) heart failure I95.9 Hypotension, unspecified Assessments Date Code Description Provider 02/10/2021 I50.20 Unspecified systolic (congestive ) heart failure Dave Elizondo M[facility] 02/10/2021 I42.9 Cardiomyopathy, unspecified Samreen Elizondo M.D.,[facility]. 02/10/2021 I20.9 Angina pectoris, unspecified Errol Elizondo M.D.,P.C. 02/10/2021 I11.9 Hypertensive heart disease witho ut heart failure Dave Elizondo M.D[facility] 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 01/23/2021 I50.20 Unspecified systolic (congestive ) heart failure Dave Elizondo M.D[facility] 01/23/2021 I42.9 Cardiomyopathy, unspecified Samreen Elizondo M.D[facility]. 01/23/2021 I48.0 Paroxysmal atrial fibrillation Sandra Elizondo M.D[facility]P.C. 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 01/22/2021 I50.20 Unspecified systolic (congestive ) heart failure Dave Elizondo M.D[facility]. 01/22/2021 I42.9 Cardiomyopathy, unspecified Samreen Elizondo M.D.,P.C. 01/22/2021 I48.0 Paroxysmal atrial fibrillation Sandra Elizondo M.D[facility]P.C. 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 01/21/2021 I50.20 Unspecified systolic (congestive ) heart failure Dave Elizondo M.D[facility]. 01/21/2021 I48.0 Paroxysmal atrial fibrillation Sandra Elizondo M.D[facility]P.C. 01/08/2021 I50.20 Unspecified systolic (congestive ) heart failure Dave Elizondo M.D[facility]. 01/08/2021 I42.9 Cardiomyopathy, unspecified Samreen Elizondo M.D[facility]. 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 01/08/2021 J44.9 Chronic obstructive pulmonary di sease, unspecified Dave Elizondo M.D[facility] 01/07/2021 I50.20 Unspecified systolic (congestive ) heart failure Dave Elizondo M.D[facility]. 01/07/2021 I42.9 Cardiomyopathy, unspecified Samreen Elizondo M.D.,P.C. 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 01/07/2021 J44.9 Chronic obstructive pulmonary di sease, unspecified Dave Elizondo M.D[facility] 01/06/2021 I50.20 Unspecified systolic (congestive ) heart failure Dave Elizondo M.D[facility]. 01/06/2021 I42.9 Cardiomyopathy, unspecified Samreen Elizondo M.D[facility]P.C. 01/06/2021 I25.10 Atherosclerotic hear t disease of [place] coronary artery without angina pectoris Dave Elizondo M.D[facility] 01/06/2021 J44.9 Chronic obstructive pulmonary di sease, salmaified Dave [facility]ondo [facility] 01/05/2021 I50.20 Unspecified systolic (congestive ) heart failure Dave [facility] 01/05/2021 I42.9 Cardiomyopathy, unspecified Samreen [facility] 01/05/2021 I25.10 Atherosclerotic hear t disease of [place] coronary artery without angina pectoris Dave [facility]ondo [facility] 01/05/2021 J44.9 Chronic obstructive pulmonary di sease, fabrizio [facility]izondo M[facility] 01/04/2021 I50.20 Unspecified systolic (congestive ) heart failure Dave [facility] 01/04/2021 I42.9 Cardiomyopathy, unspecified Samreen [facility]ondo [facility] 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 01/04/2021 J44.9 Chronic obstructive pulmonary di sease, fabrizio [facility]izondo [facility] 01/03/2021 I50.20 Unspecified systolic (congestive ) heart failure Dave [facility] 01/03/2021 I42.9 Cardiomyopathy, unspecified Samreen [facility]ondo [facility] 01/03/2021 I25.10 Atherosclerotic hear t disease of [place] coronary artery without angina pectoris Dave [facility]ondo [facility] 01/03/2021 J44.9 Chronic obstructive pulmonary di sease, fabrizio [facility] 12/24/2020 I11.9 Hypertensive heart disease witho ut heart failure Dave [facility] 12/24/2020 E78.5 Hyperlipidemia, unspecified Samreen [facility] 12/24/2020 I42.9 Cardiomyopathy, unspecified Samreen [facility] 12/23/2020 I25.10 Atherosclerotic hear t disease of [place] coronary artery without angina pectoris Dave [facility]ondo [facility] 12/19/2020 I11.9 Hypertensive heart disease witho vt heart failure Dave [facility] 12/19/2020 D50.9 Iron deficiency anemia, unspecif ied Dave [facility] 12/19/2020 E78.5 Hyperlipidemia, unspecified Samreen [facility] 12/19/2020 I50.20 Unspecified systolic (congestive ) heart failure Dave [facility] 12/19/2020 I49.49 Other premature depolarization M sergey Elizondo M[facility] 12/17/2020 I11.9 Hypertensive heart disease witho vt heart failure Dave [facility] 12/17/2020 K59.00 Constipation, salmaified Dave [facility]ondo [facility] 12/17/2020 I50.20 Unspecified systolic (congestive ) heart failure Dave [facility]ondo [facility] 12/17/2020 I42.9 Cardiomyopathy, unspecified Samreen [facility] 12/12/2020 I11.9 Hypertensive heart disease witho vt heart failure Dave [facility] 12/12/2020 J43.9 Emphysema, unspecified Dave silva [facility] 11/26/2020 I50.20 Unspecified systolic (congestive ) heart failure Dave [facility] 11/26/2020 I11.9 Hypertensive heart disease witho vt heart failure Dave [facility]ondo [facility] 11/26/2020 J06.9 Acute upper respiratory infectio n, unspecified Dave [facility] 11/26/2020 I42.9 Cardiomyopathy, unspecified Samreen [facility] 11/26/2020 I49.49 Other premature depolarization M sergey El[facility] 11/22/2020 I50.20 Unspecified systolic (congestive ) heart failure Dave [facility] 11/22/2020 I11.9 Hypertensive heart disease witho vt heart failure Dave [facility] 11/22/2020 E78.5 Hyperlipidemia, unspecified Samreen [facility] 10/22/2020 I11.9 Hypertensive heart disease witho vt heart failure Dave [facility] 10/22/2020 E78.5 Hyperlipidemia, unspecified Samreen [facility] 10/22/2020 I50.20 Unspecified systolic (congestive ) heart failure Dave [facility]ondo [facility] 10/22/2020 I95.9 Hypotension, unspecified Dave greene [facility] Referrals Refer to Dr Reason for Referral Status Appt Date Asuncion Underwood MD Please eval. and treat this patient for high creatinine, ENDY.. Thank you. Created [id number] [place], [place] [id number] [phone] Mick Ching MD Please eval. and treat this patient for positive nuclear stress test, he needs a cardiac cath. Thank you. Created [id number] [facility] [address] [place] [address] [phone]
--- OUTSIDE RECORDS SUMMARY | 2021-03-19 12:32 | CCD | Continuity of Care Document ---
Author Author Adebayo ARCHER P. C. Organization Unknown Address [address] [place] [address] Phone [phone] Care Team Providers Care Disc Pad Plate Filler Name Role Phone Sami Kalyan [facility] AUTM [phone] Mick Ching MD AUTM [phone] Asuncion Underwood MD AUTM [phone] DAVE ELIZONDO M.D. P.C. AUTM [phone] Social History Type Date Description Comments Sex Unknown Allergies and adverse reactions Active Allergies Criticality Reaction | Severity Comments Date Tolmetin Unable to assess criticality 03/28/2020 Medications Active Medications SIG Qnty Indications Ordering Provide r Date Bumetanide 1mg Tablets 1 by mouth twice a day 30tabs Dave [facility]ondo [facility] 01/24/20 21 Verquvo 2.5mg [...] day 60tabs [facility] 2020 Ipratropium [place]/Albuterol Sulfate 0.5-2.5(3)mg/3ML Solution inhale 1 vial via [...] tablet by mouth daily Dave El[facility]ondo [facility] [place] [address] [place] Extract 150mg Capsules take one tablet by [...] by mouth twice a day 90tabs Dave Elziondo [facility] [address] 1 [...] 07/30/2017 Vital Signs Date Vital Result Comment 02/10/2021 2:44pm Height 69 inches 5'9" Weight 200.00 lb BMI (Body Mass Index) 29.5 kg/m2 Body Temperature 97.6 F BP Systolic 107 mmHg BP Diastolic 68 mmHg Heart Rate 68 /min O2 % BldC Oximetry 95 % 12/24/2020 11:39am Height 69 inches 5'9" Weight 197.12 lb BMI (Body Mass Index) 29.1 kg/m2 Body Temperature 97.9 F BP Systolic 116 mmHg BP Diastolic 66 mmHg Heart Rate 63 /min O2 % BldC Oximetry 99 % Respiratory Rate 18 /min Results Test Acquired Date Facility Test Result H/L Range Note Laboratory test finding 02/05/2021 [facility] [address] [address] [phone] Iron 45 g/dL 42 - 135 Magnesium Serum 1.9 mg/dL 1.7 - 2.2 CBC W/Automated Diff 02/05/[address] [address] [phone] CBC W/Automated Diff (SEE NOTE) 1 WBC [...] Lymph 10.4 % Low 25.0 - 40.0 [place] 8.0 % 3.0 - 8.0 Eos 2.5 % 0.0 - 7.0 Baso 0.3 % 0.0 - 2.0 %Ig 0.2 % High 0.0 - 0.0 %NRBC 0.0 % 0.0 - 0.0 #Neut 4.71 10^3/uL 2.00 - 6.90 #Lymph 0.62 10^3/uL 0.60 - 3.40 #[place] 0.48 10^3/uL 0.00 - 0.90 #Eos 0.15 10^3/uL 0.00 - 0.70 #Baso 0.02 10^3/uL 0.00 - 0.20 #Ig 0.01 10^3/uL 0.00 - 0.10 #NRBC 0.00 10^3/uL 0.00 - 0.00 Manual Diff NOT INDICATED RBC Morph NOT INDICATED Laboratory test finding 02/05/2021 [facility] [address] [place] [address] [phone] TSH Highly Sensitive 10.10 uIU/mL High 0.47 - 5. 01 Vitamin B12 Serum 1363 pg/mL High 232 - 1245 Pro-BNP 9221 pg/mL High 0 - 125 Cve Panel 02/05/[address] [address] [phone] Cve Panel (SEE NOTE) 2 Cholesterol 116 mg/dL Low 131 - 200 Triglycerides 71 mg/dL 35 - 160 HDL 48 mg/dL 29 - 86 LDL 62 mg/dL Low 65 - 175 Risk Factor 2.4 Low 3.4 - 4.9 LDL/HDL 1.29 1.00 - 3.55 3 Comprehensive Metabolic Panel 02/05/2021 [facility] [address] [place] [phone] Comprehensive Metabo (SEE NOTE) 4 Sodium 142 [...] >60 mL/min 5 CBC W/Automated Diff 01/23/[address] [address] [phone] CBC W/Automated Diff (SEE NOTE) 6 WBC [...] Lymph 9.0 % Low 25.0 - 40.0 [place] 8.5 % High 3.0 - 8.0 Eos 3.8 % 0.0 - 7.0 Baso 0.2 % 0.0 - 2.0 %Ig 0.2 % High 0.0 - 0.0 %NRBC 0.0 % 0.0 - 0.0 #Neut 4.51 10^3/uL 2.00 - 6.90 #Lymph 0.52 10^3/uL Low 0.60 - 3.40 #[place] 0.49 10^3/uL 0.00 - 0.90 #Eos 0.22 10^3/uL 0.00 - 0.70 #Baso 0.01 10^3/uL 0.00 - 0.20 #Ig 0.01 10^3/uL 0.00 - 0.10 #NRBC 0.00 10^3/uL 0.00 - 0.00 Manual Diff NOT INDICATED RBC Morph NOT INDICATED Laboratory test finding 01/23/2021 [facility] [address] [place] [address] [phone] Magnesium Serum 1.8 mg/dL 1.7 - 2.2 Comprehensive Metabolic Panel 01/23/2021 [facility] [address] [place] [address] [phone] Comprehensive Metabo (SEE NOTE) 7 Sodium 139 [...] 49 mL/min 8 CBC W/Automated Diff 01/22/[address] [phone] CBC W/Automated Diff (SEE NOTE) 9 WBC [...] Lymph 13.0 % Low 25.0 - 40.0 [place] 8.7 % High 3.0 - 8.0 Eos 3.9 % 0.0 - 7.0 Baso 0.4 % 0.0 - 2.0 %Ig 0.4 % High 0.0 - 0.0 %NRBC 0.0 % 0.0 - 0.0 #Neut 3.81 10^3/uL 2.00 - 6.90 #Lymph 0.67 10^3/uL 0.60 - 3.40 #[place] 0.45 10^3/uL 0.00 - 0.90 #Eos 0.20 10^3/uL 0.00 - 0.70 #Baso 0.02 10^3/uL 0.00 - 0.20 #Ig 0.02 10^3/uL 0.00 - 0.10 #NRBC 0.00 10^3/uL 0.00 - 0.00 Manual Diff NOT INDICATED RBC Morph NOT INDICATED Laboratory test finding 01/22/2021 [facility] [address] [place] [phone] Pro-BNP 6385 pg/mL High 0 - 125 Magnesium Serum 1.8 mg/dL 1.7 - 2.2 Comprehensive Metabolic Panel 01/22/2021 [facility] [address] [place] [phone] Comprehensive Metabo (SEE NOTE) 10 Sodium 140 [...] 56 mL/min 11 Laboratory test finding 01/22/2021 [facility] [address] [place] [address] [phone] Troponin T 0.04 NG/ML 0.00 - 0.10 12 Laboratory test finding 01/21/2021 [facility] [address] [place] [address] [phone] Troponin T 0.07 NG/ML 0.00 - 0.10 13 Laboratory test finding 01/21/2021 [facility] [address] [place] [address] [phone] Iron 48 g/dL 42 - 135 Vitamin B12 Serum 1269 pg/mL High 232 - 1245 CBC W/Automated Diff 01/21/[address] [address] [phone] CBC W/Automated Diff (SEE NOTE) 14 WBC [...] Lymph 10.9 % Low 25.0 - 40.0 [place] 7.1 % 3.0 - 8.0 Eos 2.2 % 0.0 - 7.0 Baso 0.5 % 0.0 - 2.0 %Ig 0.2 % High 0.0 - 0.0 %NRBC 0.0 % 0.0 - 0.0 #Neut 4.37 10^3/uL 2.00 - 6.90 #Lymph 0.60 10^3/uL 0.60 - 3.40 #[place] 0.39 10^3/uL 0.00 - 0.90 #Eos 0.12 [...] Normal: Normal 16 Laboratory test finding 01/21/[address] [address] [phone] Magnesium Serum 2.0 mg/dL 1.7 - 2.2 Comprehensive Metabolic Panel 01/21/2021 [facility] [address] [place] [address] [phone] Comprehensive Metabo (SEE NOTE) 17 Sodium 140 [...] >60 mL/min 18 Laboratory test finding [facility] [address] [place] [address] [phone] Troponin T 0.06 NG/ML 0.00 - 0.10 19 Laboratory test finding 01/21/2021 [facility] [address] [place] [address] [phone] Troponin T 0.05 NG/ML 0.00 - 0.10 20 Laboratory test finding 01/21/2021 [place] [address] [phone] Troponin T 0.05 NG/ML 0.00 - 0.10 21 Alcohol Ethyl Blood 01/20/[address] [address] [phone] Alcohol 70.0 mg/dL Alcohol % 0.07 % High 0.00 - 0.01 22 CBC W/Automated Diff 01/20/[address] [address] [phone] CBC W/Automated Diff (SEE NOTE) 23 WBC [...] Lymph 14.2 % Low 25.0 - 40.0 [place] 7.7 % 3.0 - 8.0 Eos 3.2 % 0.0 - 7.0 Baso 0.3 % 0.0 - 2.0 %Ig 0.3 % High 0.0 - 0.0 %NRBC 0.0 % 0.0 - 0.0 #Neut 4.66 10^3/uL 2.00 - 6.90 #Lymph 0.89 10^3/uL 0.60 - 3.40 #[place] 0.48 10^3/uL 0.00 - 0.90 #Eos 0.20 10^3/uL 0.00 - 0.70 #Baso 0.02 10^3/uL 0.00 - 0.20 #Ig 0.02 10^3/uL 0.00 - 0.10 #NRBC 0.00 10^3/uL 0.00 - 0.00 Manual Diff NOT INDICATED RBC Morph NOT INDICATED Laboratory test finding 01/20/2021 [facility] [address] [place] [phone] Troponin T 0.03 NG/ML 0.00 - 0.10 24 Comprehensive Metabolic Panel 01/20/2021 [facility] [address] [place] [phone] Comprehensive Metabo (SEE NOTE) 25 Sodium 140 [...] >60 mL/min 26 Laboratory test finding 01/20/[address] [phone] Pro-BNP 6632 pg/mL High 0 - 125 CBC W/Automated Diff 01/08/[address] [address] [phone] CBC W/Automated Diff (SEE NOTE) 27 WBC [...] Lymph 9.1 % Low 25.0 - 40.0 [place] 10.7 % High 3.0 - 8.0 Eos 3.2 % 0.0 - 7.0 Baso 0.8 % 0.0 - 2.0 %Ig 0.2 % High 0.0 - 0.0 %NRBC 0.0 % 0.0 - 0.0 #Neut 3.84 10^3/uL 2.00 - 6.90 #Lymph 0.46 10^3/uL Low 0.60 - 3.40 #[place] 0.54 10^3/uL 0.00 - 0.90 #Eos 0.16 10^3/uL 0.00 - 0.70 #Baso 0.04 10^3/uL 0.00 - 0.20 #Ig 0.01 10^3/uL 0.00 - 0.10 #NRBC 0.00 10^3/uL 0.00 - 0.00 Manual Diff NOT INDICATED RBC Morph NOT INDICATED Comprehensive Metabolic Panel 01/08/2021 [facility] [address] [address] [phone] Comprehensive Metabo (SEE NOTE) 28 Sodium 139 [...] >60 mL/min 29 CBC W/Automated Diff 01/07/[address] [address] [phone] CBC W/Automated Diff (SEE NOTE) 30, 31 [...] Lymph 10.9 % Low 25.0 - 40.0 [place] 9.1 % High 3.0 - 8.0 Eos 3.4 % 0.0 - 7.0 Baso 0.4 % 0.0 - 2.0 %Ig 0.4 % High 0.0 - 0.0 %NRBC 0.0 % 0.0 - 0.0 #Neut 3.77 10^3/uL 2.00 - 6.90 #Lymph 0.54 10^3/uL Low 0.60 - 3.40 #[place] 0.45 10^3/uL 0.00 - 0.90 #Eos 0.17 10^3/uL 0.00 - 0.70 #Baso 0.02 10^3/uL 0.00 - 0.20 #Ig 0.02 10^3/uL 0.00 - 0.10 #NRBC 0.00 10^3/uL 0.00 - 0.00 Manual Diff NOT INDICATED RBC Morph NOT INDICATED Laboratory test finding 01/07/2021 [facility] [address] [place] [address] [phone] Troponin T 0.02 NG/ML 0.00 - 0.10 32 Comprehensive Metabolic Panel 01/07/2021 [facility] [address] [place] [address] [phone] Comprehensive Metabo (SEE NOTE) 33 Sodium 139 [...] >60 mL/min 34 CBC W/Automated Diff 01/06/[address] [address] [phone] CBC W/Automated Diff (SEE NOTE) 35 WBC [...] Lymph 10.5 % Low 25.0 - 40.0 [place] 8.4 % High 3.0 - 8.0 Eos 2.3 % 0.0 - 7.0 Baso 0.3 % 0.0 - 2.0 %Ig 0.3 % High 0.0 - 0.0 %NRBC 0.0 % 0.0 - 0.0 #Neut 4.75 10^3/uL 2.00 - 6.90 #Lymph 0.64 10^3/uL 0.60 - 3.40 #[place] 0.51 10^3/uL 0.00 - 0.90 #Eos 0.14 10^3/uL 0.00 - 0.70 #Baso 0.02 10^3/uL 0.00 - 0.20 #Ig 0.02 10^3/uL 0.00 - 0.10 #NRBC 0.00 10^3/uL 0.00 - 0.00 Manual Diff NOT INDICATED RBC Morph NOT INDICATED Comprehensive Metabolic Panel 01/06/2021 [facility] [address] [place] [phone] Comprehensive Metabo (SEE NOTE) 36 Sodium 141 [...] >60 mL/min 37 Laboratory test finding 01/06/2021 [facility] [address] [place] [phone] Iron 40 g/dL Low 42 - 135 Laboratory test finding 01/05/2021 [facility] [address] [place] [phone] Magnesium Serum 1.8 mg/dL 1.7 - 2.2 CBC W/Automated Diff 01/05/[address] [address] [phone] CBC W/Automated Diff (SEE NOTE) 38 WBC [...] Lymph 11.6 % Low 25.0 - 40.0 [place] 8.5 % High 3.0 - 8.0 Eos 1.7 % 0.0 - 7.0 Baso 0.6 % 0.0 - 2.0 %Ig 0.4 % High 0.0 - 0.0 %NRBC 0.0 % 0.0 - 0.0 #Neut 4.21 10^3/uL 2.00 - 6.90 #Lymph 0.63 10^3/uL 0.60 - 3.40 #[place] 0.46 10^3/uL 0.00 - 0.90 #Eos 0.09 10^3/uL 0.00 - 0.70 #Baso 0.03 10^3/uL 0.00 - 0.20 #Ig 0.02 10^3/uL 0.00 - 0.10 #NRBC 0.00 10^3/uL 0.00 - 0.00 Manual Diff NOT INDICATED RBC Morph NOT INDICATED Comprehensive Metabolic Panel 01/05/2021 [facility] [address] [place] [address] [phone] Comprehensive Metabo (SEE NOTE) 39 Sodium 141 [...] >60 mL/min 40 Laboratory test finding 01/04/2021 [facility] [address] [place], [place] [phone] Potassium 4.1 mEq/L 3.6 - 5.0 Laboratory test finding 01/04/2021 [facility] [address] [place] [address] [phone] Troponin T 0.02 NG/ML 0.00 - 0.10 41 Comprehensive Metabolic Panel 01/04/2021 [facility] [address] [place] [address] [phone] Comprehensive Metabo (SEE NOTE) 42 Sodium 142 [...] >60 mL/min 43 CBC W/Automated Diff 01/04/[address] [address] [phone] CBC W/Automated Diff (SEE NOTE) 44 WBC [...] Lymph 12.8 % Low 25.0 - 40.0 [place] 8.0 % 3.0 - 8.0 Eos 2.1 % 0.0 - 7.0 Baso 0.3 % 0.0 - 2.0 %Ig 0.3 % High 0.0 - 0.0 %NRBC 0.0 % 0.0 - 0.0 #Neut 4.47 10^3/uL 2.00 - 6.90 #Lymph 0.75 10^3/uL 0.60 - 3.40 #[place] 0.47 10^3/uL 0.00 - 0.90 #Eos 0.12 10^3/uL 0.00 - 0.70 #Baso 0.02 10^3/uL 0.00 - 0.20 #Ig 0.02 10^3/uL 0.00 - 0.10 #NRBC 0.00 10^3/uL 0.00 - 0.00 Manual Diff NOT INDICATED RBC Morph NOT INDICATED Laboratory test finding 01/04/[address] [address] [phone] Magnesium Serum 1.8 mg/dL 1.7 - 2.2 Iron 41 g/dL Low 42 - 135 Laboratory test finding 01/04/[address] [address] [phone] Troponin T 0.02 NG/ML 0.00 - 0.10 45 Laboratory test finding 01/03/2021 [facility] [address] [place] [address] [phone] Magnesium Serum 1.9 mg/dL 1.7 - 2.2 46 TSH Highly Sensitive 3.56 uIU/mL 0.47 - 5.01 T4 - Free 1.37 ng/dL 0.93 - 1.70 Laboratory test finding 01/03/2021 [facility] [address] [place] [address] [phone] Troponin T 0.02 NG/ML 0.00 - 0.10 47 Comprehensive Metabolic Panel 01/03/2021 [facility] [address] [place] [address] [phone] Comprehensive Metabo (SEE NOTE) 48 Sodium 143 [...] >60 mL/min 49 Laboratory test finding 01/03/2021 [facility] [address] [place] [phone] Troponin T 0.02 NG/ML 0.00 - 0.10 50 Pro-BNP 6929 pg/mL High 0 - 125 CBC W/Automated Diff 01/03/[address] [address] [phone] CBC W/Automated Diff (SEE NOTE) 51 WBC [...] Lymph 8.7 % Low 25.0 - 40.0 [place] 6.6 % 3.0 - 8.0 Eos 0.9 % 0.0 - 7.0 Baso 0.3 % 0.0 - 2.0 %Ig 0.5 % High 0.0 - 0.0 %NRBC 0.0 % 0.0 - 0.0 #Neut 5.25 10^3/uL 2.00 - 6.90 #Lymph 0.55 10^3/uL Low 0.60 - 3.40 #[place] 0.42 10^3/uL 0.00 - 0.90 #Eos 0.06 10^3/uL 0.00 - 0.70 #Baso 0.02 10^3/uL 0.00 - 0.20 #Ig 0.03 10^3/uL 0.00 - 0.10 #NRBC 0.00 10^3/uL 0.00 - 0.00 Manual Diff NOT INDICATED RBC Morph NOT INDICATED Laboratory test finding 01/03/[address] [address] [phone] Troponin T 0.02 NG/ML 0.00 - 0.10 52 Laboratory test finding 12/12/[address] [address] [phone] Magnesium Serum 2.1 mg/dL 1.7 - 2.2 Pro-BNP 7997 pg/mL High 0 - 125 Comprehensive Metabolic Panel 12/12/2020 [facility] [address] [address] [phone] Comprehensive Metabo (SEE NOTE) 53 Sodium 142 [...] GFR >60 mL/min 54 Cve Panel 12/12/[address] [address] [phone] Cve Panel (SEE NOTE) 55 Cholesterol 108 mg/dL Low 131 - 200 Triglycerides 52 mg/dL 35 - 160 HDL 40 mg/dL 29 - 86 LDL 68 mg/dL 65 - 175 Risk Factor 2.7 Low 3.4 - 4.9 LDL/HDL 1.70 1.00 - 3.55 56 CBC W/Automated Diff 12/12/[address] [address] [phone] CBC W/Automated Diff (SEE NOTE) 57 WBC [...] Lymph 7.8 % Low 25.0 - 40.0 [place] 7.1 % 3.0 - 8.0 Eos 0.7 % 0.0 - 7.0 Baso 0.3 % 0.0 - 2.0 %Ig 0.4 % High 0.0 - 0.0 %NRBC 0.0 % 0.0 - 0.0 #Neut 5.88 10^3/uL 2.00 - 6.90 #Lymph 0.55 10^3/uL Low 0.60 - 3.40 #[place] 0.50 10^3/uL 0.00 - 0.90 #Eos 0.05 10^3/uL 0.00 - 0.70 #Baso 0.02 10^3/uL 0.00 - 0.20 #Ig 0.03 10^3/uL 0.00 - 0.10 #NRBC 0.00 10^3/uL 0.00 - 0.00 Manual Diff NOT INDICATED RBC Morph NOT INDICATED Urinalysis 11/22/[address] [address] [phone] Urinalysis (SEE NOTE) 58, 59 Source R Color yellow Normal: Yellow Clarity clear Normal: Clear Spec [place] 1.015 1.001 - 1.030 pH 5 5 - 9 Glucose NORM Normal: Negative Bilirubin NEG Normal: Negative Ketone NEG Normal: Negative Protein NEG Normal: Negative Nitrite NEG Normal: Negative Blood NEG Normal: Negative Leuk Est NEG Normal: Negative Urobilinogen NOR less than 1.0 mg/dL Microscopic Not Indicate CBC W/Automated Diff 11/22/2020 [place] [phone] CBC W/Automated Diff (SEE NOTE) 60 WBC [...] Lymph 7.2 % Low 25.0 - 40.0 [place] 5.8 % 3.0 - 8.0 Eos 0.7 % 0.0 - 7.0 Baso 0.1 % 0.0 - 2.0 %Ig 0.4 % High 0.0 - 0.0 %NRBC 0.0 % 0.0 - 0.0 #Neut 5.73 10^3/uL 2.00 - 6.90 #Lymph 0.48 10^3/uL Low 0.60 - 3.40 #[place] 0.39 10^3/uL 0.00 - 0.90 #Eos 0.05 10^3/uL 0.00 - 0.70 #Baso 0.01 10^3/uL 0.00 - 0.20 #Ig 0.03 10^3/uL 0.00 - 0.10 #NRBC 0.00 10^3/uL 0.00 - 0.00 Manual Diff NOT INDICATED RBC Morph NOT INDICATED Laboratory test finding 11/22/2020 [facility] [address] [place] [address] [phone] Hgba1c 5.2 % 4.4 - 6.1 61 Iron 42 g/dL 42 - 135 Magnesium Serum 2.2 mg/dL 1.7 - 2.2 Comprehensive Metabolic Panel 11/22/2020 [facility] [address] [place] [address] [phone] Comprehensive Metabo (SEE NOTE) 62 Sodium 142 [...] GFR 56 mL/min 63 Cve Panel 11/22/[address] [address] [phone] Cve Panel (SEE NOTE) 64 Cholesterol 109 mg/dL Low 131 - 200 Triglycerides 45 mg/dL 35 - 160 HDL 45 mg/dL 29 - 86 LDL 66 mg/dL 65 - 175 Risk Factor 2.4 Low 3.4 - 4.9 LDL/HDL 1.47 1.00 - 3.55 65 Laboratory test finding 11/22/[address] [address] [phone] TSH Highly Sensitive 3.34 uIU/mL 0.47 - [...] PANEL 65 CVE RISK CHOL/HDL LDL/HDL MEN: 04/13 AVERAGE 3.43 1.00 AVERAGE 4.97 3.55 2X AVERAGE 9.55 6.25 3X AVERAGE 23.99 7.99 WOMEN: 04/13 AVERAGE 3.27 1.47 AVERAGE 4.44 3.22 2X AVERAGE 7.05 5.03 3X AVERAGE 11.04 6.14 Procedures Date Code Description Status 02/10/2021 42348 Office/Outpatient Established Mo d MDM 30-39 Min Completed 01/23/2021 36197 Hospital Disch MGMT Completed 01/22/2021 30185 Hospital Care Low Completed 01/21/2021 96005 Hospital Care Moderate Completed 01/20/2021 67429 Hospital Care Initial Level 2 Co mpleted 01/08/2021 82649 Hospital Disch MGMT Completed 01/07/2021 92148 Hospital Care Low Completed 01/06/2021 33835 Hospital Care Low Completed 01/05/2021 58428 Hospital Care Moderate Completed 01/04/2021 59281 Hospital Care Moderate Completed 01/03/2021 95825 Hospital Care Initial Level 2 Co mpleted 12/24/2020 87611 Office/Outpatient Established Lo w MDM 20-29 Min Completed 12/23/2020 73767 Myocardial Perfusion,WM & Ef Com pleted 12/19/2020 23003 Office/Outpatient Established Mo d MDM 30-39 Min Completed 12/19/2020 72935 EKG Completed 12/17/2020 47462 Office/Outpatient Established Mo d MDM 30-39 Min Completed 12/12/2020 41308 Office/Outpatient Established Mo d MDM 30-39 Min Completed 11/26/2020 44376 Office/Outpatient Established Mo d MDM 30-39 Min Completed 11/26/2020 90095 Echocardiogram, Complete Complet ed 11/26/2020 56156 EKG Completed 11/22/2020 60372 Office/Outpatient Established Mo d MDM 30-39 Min Completed 10/22/2020 77134 Office/Outpatient Established Mo d MDM 30-39 Min Completed Encounters Type Date Location Provider Dx Diagnosis Office Visit 02/10/2021 2:45p [facility] Dave Elizondo [facility] I50.20 Unspecified systolic (congestive) heart failure I42.9 Cardiomyopathy, unspecified I20.9 Angina pectoris, unspecified I11.9 Hypertensive heart disease w [facility] heart failure Office Visit 12/24/2020 11:30a [facility] Dave Elizondo M[facility] I11.9 Hypertensive heart disease without heart failure E78.5 Hyperlipidemia, unspecified I42.9 Cardiomyopathy, unspecified Office Visit 12/19/2020 10:15a [facility] Dave Elizondo M[facility] I11.9 Hypertensive heart disease without heart failure D50.9 Iron deficiency anemia, unsp ecified E78.5 Hyperlipidemia, unspecified I50.20 Unspecified systolic (conges tive) heart failure I49.49 Other premature depolarizati on Office Visit 12/17/2020 10:15a [facility] Dave Elizondo M[facility] I11.9 Hypertensive heart disease without heart failure K59.00 Constipation, unspecified I50.20 Unspecified systolic (conges tive) heart failure I42.9 Cardiomyopathy, unspecified Office Visit 12/12/2020 10:00a [facility] Dave Elizondo M[facility] I11.9 Hypertensive heart disease without heart failure J43.9 Emphysema, unspecified Office Visit 11/26/2020 10:30a [facility] Dave Elizondo M[facility] I50.20 Unspecified systolic (congestive) heart failure I11.9 Hypertensive heart disease w [facility] heart failure J06.9 Acute upper respiratory infe ction, unspecified I42.9 Cardiomyopathy, unspecified I49.49 Other premature depolarizati on Office Visit 11/22/2020 10:00a [facility] Dave Elizondo M.D[facility] I50.20 Unspecified systolic (congestive) heart failure I11.9 Hypertensive heart disease w ithout heart failure E78.5 Hyperlipidemia, unspecified Office Visit 10/22/2020 11:00a [facility] Dave Elizondo M[facility] 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 01/23/2021 I50.20 Unspecified systolic (congestive ) heart failure Dave [facility] 01/23/2021 I42.9 Cardiomyopathy, unspecified Samreen Elizondo M.D[facility] 01/23/2021 I48.0 Paroxysmal atrial fibrillation Sandra Elizondo M[facility] 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 01/22/2021 I50.20 Unspecified systolic (congestive ) heart failure Dave [facility]ondo [facility] 01/22/2021 I42.9 Cardiomyopathy, unspecified Samreen [facility]izondo [facility] 01/22/2021 I48.0 Paroxysmal atrial fibrillation Sandra Elizondo [facility] 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 01/21/2021 I50.20 Unspecified systolic (congestive ) heart failure Dave [facility]ondo [facility] 01/21/2021 I48.0 Paroxysmal atrial fibrillation Sandra Elizondo [facility] 01/08/2021 I50.20 Unspecified systolic (congestive ) heart failure Dave [facility]ondo [facility] 01/08/2021 I42.9 Cardiomyopathy, unspecified Samreen [facility]izondo [facility] 01/08/2021 I25.10 Atherosclerotic hear t disease of [place] coronary artery without angina pectoris Dave [facility] 01/08/2021 J44.9 Chronic obstructive pulmonary di sease, unspecified Dave [facility] 01/07/2021 I50.20 Unspecified systolic (congestive ) heart failure Dave [facility] 01/07/2021 I42.9 Cardiomyopathy, unspecified Samreen [facility]ondo [facility] 01/07/2021 I25.10 Atherosclerotic hear t disease of [place] coronary artery without angina pectoris Dave [facility]ondo [facility] 01/07/2021 J44.9 Chronic obstructive pulmonary di sease, salmaified Dave [facility]ondo [facility] 01/06/2021 I50.20 Unspecified systolic (congestive ) heart failure Dave [facility]ondo [facility] 01/06/2021 I42.9 Cardiomyopathy, unspecified Samreen [facility]ondo [facility] 01/06/2021 I25.10 Atherosclerotic hear t disease of [place] coronary artery without angina pectoris Dave [facility]izondo [facility] 01/06/2021 J44.9 Chronic obstructive pulmonary di sease, unspecified Dave [facility]ondo [facility] 01/05/2021 I50.20 Unspecified systolic (congestive ) heart failure Dave [facility]ondo [facility] 01/05/2021 I42.9 Cardiomyopathy, unspecified Samreen [facility]ondo [facility] 01/05/2021 I25.10 Atherosclerotic hear t disease of [place] coronary artery without angina pectoris Dave [facility]ondo [facility] 01/05/2021 J44.9 Chronic obstructive pulmonary di sease, fabrizio Elizondo M.D[facility] 01/04/2021 I50.20 Unspecified systolic (congestive ) heart failure Dave [facility]ondo [facility] 01/04/2021 I42.9 Cardiomyopathy, unspecified Samreen [facility]ondo [facility] 01/04/2021 I25.10 Atherosclerotic hear t disease of [place] coronary artery without angina pectoris Dave [facility]izondo [facility] 01/04/2021 J44.9 Chronic obstructive pulmonary di sease, fabrizio Elizondo M[facility] 01/03/2021 I50.20 Unspecified systolic (congestive ) heart failure Dave [facility]ondo [facility] 01/03/2021 I42.9 Cardiomyopathy, unspecified Samreen [facility]ondo [facility] 01/03/2021 I25.10 Atherosclerotic hear t disease of [place] coronary artery without angina pectoris Dave [facility]ondo [facility] 01/03/2021 J44.9 Chronic obstructive pulmonary di sease, fabrizio [facility]ondo M[facility] 12/24/2020 I11.9 Hypertensive heart disease witho ut heart failure Dave [facility]ondo [facility] 12/24/2020 E78.5 Hyperlipidemia, unspecified Samreen [facility]ondo [facility] 12/24/2020 I42.9 Cardiomyopathy, unspecified Samreen [facility]ondo [facility] 12/23/2020 I25.10 Atherosclerotic hear t disease of [place] coronary artery without angina pectoris Dave Elizondo [...] failure Dave [facility]ondo [facility] 10/22/2020 E78.5 Hyperlipidemia, salmaified Samreen El[facility]ondo M[facility] 10/22/2020 I50.20 Unspecified systolic (congestive ) heart failure Dave [facility]ondo [facility] 10/22/2020 I95.9 Hypotension, unspecified Dave greene M.D[facility] Plan of Treatment Future Appointment(s):* 03/14/2021 11:15 am - Dave Elizondo M[facility] at [facility] Referrals Refer to Dr Reason for Referral Status Appt Date Asuncion Underwood MD Please eval. and treat this patient for high creatinine, ENDY.. Thank you. Created [address] [place], [place] [id number] [phone] Mick Ching MD Please eval. and treat this patient for positive nuclear stress test, he needs a cardiac cath. Thank you. Created [address] [facility] [address] [place] [address] [phone]
--- OUTSIDE RECORDS SUMMARY | 2021-03-19 12:32 | CCD | Continuity of Care Document ---
Author Adebayo Serrano Organization Unknown Address [address] [place] [address] Phone [phone] Care Team Providers Care [employer] Name Role Phone Jon Elizondo M.D. AUTM [phone] Myriam Jauregui M.D. AUTM [phone] [facility] Care Everywhere AUTM Cam Foster M.D. AUTM [phone] Problems Active Problems Provider Date Carotid artery [...] SIG Qnty Indications Ordering Provide r Date [place] Extract qd Unknown Nitro-Dur 0.4mg/HR Patches 24HR 1 patch apply on every morning and off every night at bedtime Unknown Vitamin C 500mg Tablets 1 by mouth every day Unknown Metoprolol Succinate ER 25mg Tablets ER 24HR every day Unknown Levothyroxine Sodium 75mcg Tablets every day Unknown Bumetanide 1mg Tablets bid Unknown Verquvo 2.5mg Tablets qd Unknown Aspirin 325mg Tablets DR mak y day Unknown Ferrous Sulfate 324(65Fe) mg Table [...] <pending> Procedures Date Code Description Status 03/10/2021 92986 Duplex Scan Extracranial Arterie s, Complete Bilateral Study Completed 11/05/2020 11176 Office/Outpatient Established Clarita thomas MDM 20-29 Min Completed 11/05/2020 71550 Duplex Scan Extracranial Arterie s, Complete Bilateral Study Completed Medical Devices Description No Information Available Encounters Type Date Location Provider Dx Diagnosis Office Visit 11/05/2020 10:30a Main Office Jeanne De Luna48.812 Encntr for surgical aftcr following surgery on the circ sys I65.23 Occlusion and stenosis of bi lateral carotid arteries Assessments Date Code Description Provider 03/10/2021 I65.23 Occlusion and stenosis of bilate ral carotid arteries Vascular Lab 03/10/2021 Z48.812 Encounter for surgic al aftercare following surgery on the circulatory system Vascular Lab 11/05/2020 I65.23 Occlusion and stenosis [...] am - Vascular Lab at Main Office Functional Status Description No Information Available Mental Status Description No Information Available Referrals Description No Information Available
--- OUTSIDE RECORDS SUMMARY | 2021-03-19 12:32 | CCD | Continuity of Care Document ---
Author Author Adebayo ELIZONDO M.D. Organization Unknown Address [address] [place] [address] Phone [phone] Care Team Providers Care [employer] Name Role Phone Karson Jauregui M.D. AUTM [phone] Jon Elizondo MD AUTM [phone] Problems Description No Information Available Social History Type Date Description Comments Sex Unknown Tobacco Use Start: Unknown Light tobacco smoker (10 or fewe r cigarettes/day) Tobacco Use Start: Unknown Never Smoked Cigars Tobacco Use Start: Unknown Never Smoked A Pipe Tobacco Use Start: Unknown Never Used Smokeless Tobacco ETOH Use Occasionally consumes alcohol Tobacco Use Start: Unknown Light tobacco smoker (10 or fewe r cigarettes/day) Recreational Drug Use Denies Drug Use Allergies and adverse reactions Active Allergies Criticality Reaction | Severity Comments Date Tolmetin Unable to assess criticality Hives 08/18/2018 [employer] Unable to assess criticality 11/02/2019 Environmental Unable to assess criticality 11/02/2019 Medications Active Medications SIG Qnty Indications Ordering Provide r Date Levothyroxine Sodium 75mcg Capsule s 1 tab by mouth every day Karson Jauregui MD Entresto 49-51mg Tablets 1 tab by mouth twice daily Karson Jauregui MD 04/22/2020 Metoprolol Tartrate 25mg Tablets 1 tab by mouth every day Karson Jauregui MD 04/22/2020 Atorvastatin Calcium 80mg Tablets 1 by mouth every day 90tabs Karson Jauregui MD 11/02/2019 Aspirin Adult 325mg Tablets one tab by mouth daily 90tabs Karson Jauregui MD 05/08/[address] 1 by mouth every day 30caps Karson Jauregui MD 08/18/2018 Ferrous Sulfate 324(65Fe) mg Table ts DR take one tablet by mouth twice a day 60tabs Karson arce MD 08/18/2018 Magnesium 400mg Tablets 1 tab by mouth twice a day 60tabs Karson Jauregui MD 08/18/2018 Ipratropium [place]/Albuterol Sulfate 0.5-2.5(3)mg/3ML Solution Jon Elizondo MD Nitroglycerin 0.4mg/HR Patches 24HR Jon Elizondo MD Bumetanide 1mg Tablets 2 x daily ( Dr hall) Jon Elizondo MD Verquvo 2.5mg Tablets 2.5mg d aily Jon Elizondo MD Multivitamin Adult Tablets 1 by mouth twice daily Unknown Vitamin C 500mg Tablets 1 by mouth every day Unknown Fluticasone Propionate 50mcg/Act Suspension 2 sprays each nostril once a day 48gm Unknown Nitrostat 0.4mg Tablets Sub a s needed Jon Elizondo MD Allopurinol 300mg Tablets 1 tab by mouth every day 90tabs Unknown Immunizations Description No Information Available Vital Signs Date Vital Result Comment 02/10/2021 8:58am BP Systolic 128 mmHg BP Diastolic 78 mmHg Heart Rate 70 /min Body Temperature 97.3 F Respiratory Rate 16 /min O2 % BldC Oximetry 93 % Weight 199.00 lb before hospital says 186 then gained fluid Weight 90.266 kg Height 69 inches 5'9" BMI (Body Mass Index) 29.4 kg/m2 BSA (Body Surface Area) 2.06 m2 07/24/2020 7:52am BP Systolic 132 mmHg BP Diastolic 70 mmHg Heart Rate 87 /min Body Temperature 97.3 F Respiratory Rate 18 /min O2 % BldC Oximetry 92 % Weight 194.00 lb Weight 87.998 kg Height 69 inches 5'9" BMI (Body Mass Index) 28.6 kg/m2 BSA (Body Surface Area) 2.04 m2 Results Test Acquired Date Facility Test Result H/L Range Note CBC W/Automated Diff 02/05/2021 [facility] CBC W/Automated Diff (SEE NOTE) 1 WBC [...] Lymph 10.4 % Low 25.0 - 40.0 [place] 8.0 % 3.0 - 8.0 Eos 2.5 % 0.0 - 7.0 Baso 0.3 % 0.0 - 2.0 %Ig 0.2 % High 0.0 - 0.0 %NRBC 0.0 % 0.0 - 0.0 #Neut 4.71 10^3/uL 2.00 - 6.90 #Lymph 0.62 10^3/uL 0.60 - 3.40 #[place] 0.48 10^3/uL 0.00 - 0.90 #Eos 0.15 10^3/uL 0.00 - 0.70 #Baso 0.02 10^3/uL 0.00 - 0.20 #Ig 0.01 10^3/uL 0.00 - 0.10 #NRBC 0.00 10^3/uL 0.00 - 0.00 Manual Diff NOT INDICATED RBC Morph NOT INDICATED Laboratory test finding 02/05/2021 [facility] l Iron 45 g/dL 42 - 135 Magnesium Serum 1.9 mg/dL 1.7 - 2.2 Cve Panel 02/05/2021 [facility] Cve Panel (SEE NOTE) 2 Cholesterol 116 mg/dL Low 131 - 200 Triglycerides 71 mg/dL 35 - 160 HDL 48 mg/dL 29 - 86 LDL 62 mg/dL Low 65 - 175 Risk Factor 2.4 Low 3.4 - 4.9 LDL/HDL 1.29 1.00 - 3.55 3 Comprehensive Metabolic Panel 02/05/2021 [facility] ospital Comprehensive Metabo (SEE NOTE) 4 Sodium 142 [...] mL/min Afr Amer GFR >60 mL/min 5 Laboratory test finding 02/05/2021 [facility] l TSH Highly Sensitive 10.10 uIU/mL High 0.47 - 5.01 Vitamin B12 Serum 1363 pg/mL High 232 - 1245 Pro-BNP 9221 pg/mL High 0 - 125 1 COMPLETE [...] Normal 80 and above >32 mL/min Normal Procedures Date Code Description Status 02/10/2021 37195 Office/Outpatient Established Lo w MDM 20-29 Min Completed Medical Devices Description No Information Available Encounters Type Date Location Provider Dx Diagnosis Office Visit 02/10/2021 9:00a [facility] Karson Jauregui MD I1 0 Essential (primary) hypertension E03.9 Hypothyroidism, unspecified I25.10 Athscl heart disease of [place] coronary artery w/o ang pctrs Assessments Date Code Description Provider 02/10/2021 I10 Essential (primary) hypertension Karson Jauregui MD 02/10/2021 E03.9 Hypothyroidism, unspecified Timi Jauregui MD 02/10/2021 I25.10 Atherosclerotic hear t disease of [place] coronary artery without angina pectoris Karson Jauregui MD Plan of Treatment Future Appointment(s):* 05/13/2021 9:00 am - Karson Jauregiu MD at [facility] 02/10/2021 - Karson Jauregui MD* I10 Essential (primary) hypertension* Comments:* Blood pressure today is 128/78 mmHg. He was advised to continue with his current line of therapies. Advised him to regularly monitor his blood pressure. He will benefit from maintaining a low-sodium diet. We will continue to monitor. * Follow up:* 3 months * E03.9 Hypothyroidism, unspecified* Comments:* His TSH is 10.10. His Levothyroxine was increased last week by Dr. Elizondo and now takes levothyroxine 75 mcg in empty stomach 30 minutes before taking any other medication. We will recheck thyroid level in 3 months. * I25.10 Atherosclerotic heart disease of [place] coronary artery without angina pectoris* Comments:* He recently had cardiac cath and Echo. Dx with CHF and diuretics changed from Lasix to Bumetanide. He continues to f/u with Dr. Elizondo and Dr. Cook. Advised to continue to f/u with them as care remains with them. Discussed about start using TEDS daily and low salt diet. Also advised to check daily weights and if he acutely he gains weight then he needs to contact his [employer] or [employer]. If respiratory distress or chest pain then he needs to call 911 and present himself to ER for further evaluation. * All * New Medication:* Levothyroxine Sodium 75 mcg - 1 tab by mouth every day Functional Status Description No Information Available Mental Status Description No Information Available Referrals Description No Information Available
--- OUTSIDE RECORDS SUMMARY | 2021-03-19 12:32 | CCD | Continuity of Care Document ---
Author Author Adebayo ARCHER P. C. Organization Unknown Address [address] [place] [id number] Phone [phone] Care Team Providers Care Front Line Supervisor Name Role Phone Sami [facility] AUTM Mick Ching MD AUTM [phone] Asuncion Underwood MD AUTM [phone] DAVE ELIZONDO M.D. P.C. AUTM [phone] Social History Type Date Description Comments Sex [...] day 60tabs Dave Elizondo M[facility] 2020 Ipratropium [place]/Albuterol Sulfate 0.5-2.5(3)mg/3ML Solution inhale 1 vial via [...] tablet by mouth daily Dave Elizondo M.D[facility] [place] Extract 150mg Capsules take one tablet by [...] H/L Range Note Laboratory test finding 02/05/2021 [facility] [address] [address] [phone] Iron 45 g/dL 42 - 135 Magnesium Serum 1.9 mg/dL 1.7 - 2.2 CBC W/Automated Diff 02/05/[address] [address] [phone] CBC W/Automated Diff (SEE NOTE) 1 WBC [...] Lymph 10.4 % Low 25.0 - 40.0 [place] 8.0 % 3.0 - 8.0 Eos 2.5 % 0.0 - 7.0 Baso 0.3 % 0.0 - 2.0 %Ig 0.2 % High 0.0 - 0.0 %NRBC 0.0 % 0.0 - 0.0 #Neut 4.71 10^3/uL 2.00 - 6.90 #Lymph 0.62 10^3/uL 0.60 - 3.40 #[place] 0.48 10^3/uL 0.00 - 0.90 #Eos 0.15 10^3/uL 0.00 - 0.70 #Baso 0.02 10^3/uL 0.00 - 0.20 #Ig 0.01 10^3/uL 0.00 - 0.10 #NRBC 0.00 10^3/uL 0.00 - 0.00 Manual Diff NOT INDICATED RBC Morph NOT INDICATED Laboratory test finding 02/05/2021 [place] [facility] [place] [address] [phone] TSH Highly Sensitive 10.10 uIU/mL High 0.47 - 5. 01 Vitamin B12 Serum 1363 pg/mL High 232 - 1245 Pro-BNP 9221 pg/mL High 0 - 125 Cve Panel 02/05/[address] [address] [phone] Cve Panel (SEE NOTE) 2 Cholesterol 116 mg/dL Low 131 - 200 Triglycerides 71 mg/dL 35 - 160 HDL 48 mg/dL 29 - 86 LDL 62 mg/dL Low 65 - 175 Risk Factor 2.4 Low 3.4 - 4.9 LDL/HDL 1.29 1.00 - 3.55 3 Comprehensive Metabolic Panel 02/05/2021 [facility] [address] [place] [address] [phone] Comprehensive Metabo (SEE NOTE) 4 Sodium 142 [...] >60 mL/min 5 CBC W/Automated Diff 01/23/[address] [address] [phone] CBC W/Automated Diff (SEE NOTE) 6 WBC [...] Lymph 9.0 % Low 25.0 - 40.0 [place] 8.5 % High 3.0 - 8.0 Eos 3.8 % 0.0 - 7.0 Baso 0.2 % 0.0 - 2.0 %Ig 0.2 % High 0.0 - 0.0 %NRBC 0.0 % 0.0 - 0.0 #Neut 4.51 10^3/uL 2.00 - 6.90 #Lymph 0.52 10^3/uL Low 0.60 - 3.40 #[place] 0.49 10^3/uL 0.00 - 0.90 #Eos 0.22 10^3/uL 0.00 - 0.70 #Baso 0.01 10^3/uL 0.00 - 0.20 #Ig 0.01 10^3/uL 0.00 - 0.10 #NRBC 0.00 10^3/uL 0.00 - 0.00 Manual Diff NOT INDICATED RBC Morph NOT INDICATED Laboratory test finding 01/23/2021 [facility] [address] [place] [address] [phone] Magnesium Serum 1.8 mg/dL 1.7 - 2.2 Comprehensive Metabolic Panel 01/23/2021 [facility] [address] [place] [address] [phone] Comprehensive Metabo (SEE NOTE) 7 Sodium 139 [...] 49 mL/min 8 CBC W/Automated Diff 01/22/[address] [phone] CBC W/Automated Diff (SEE NOTE) 9 WBC [...] Lymph 13.0 % Low 25.0 - 40.0 [place] 8.7 % High 3.0 - 8.0 Eos 3.9 % 0.0 - 7.0 Baso 0.4 % 0.0 - 2.0 %Ig 0.4 % High 0.0 - 0.0 %NRBC 0.0 % 0.0 - 0.0 #Neut 3.81 10^3/uL 2.00 - 6.90 #Lymph 0.67 10^3/uL 0.60 - 3.40 #[place] 0.45 10^3/uL 0.00 - 0.90 #Eos 0.20 10^3/uL 0.00 - 0.70 #Baso 0.02 10^3/uL 0.00 - 0.20 #Ig 0.02 10^3/uL 0.00 - 0.10 #NRBC 0.00 10^3/uL 0.00 - 0.00 Manual Diff NOT INDICATED RBC Morph NOT INDICATED Laboratory test finding 01/22/2021 [facility] [address] [place] [phone] [phone] Pro-BNP 6385 pg/mL High 0 - 125 Magnesium Serum 1.8 mg/dL 1.7 - 2.2 Comprehensive Metabolic Panel 01/22/2021 [facility] [address] [place] [phone] Comprehensive Metabo (SEE NOTE) 10 Sodium 140 [...] 56 mL/min 11 Laboratory test finding 01/22/2021 [facility] [address] [place] [address] [phone] Troponin T 0.04 NG/ML 0.00 - 0.10 12 Laboratory test finding 01/21/2021 [facility] l [address] [place] [address] [phone] Troponin T 0.07 NG/ML 0.00 - 0.10 13 Laboratory test finding 01/21/2021 [facility] [address] [place] [address] [phone] Iron 48 g/dL 42 - 135 Vitamin B12 Serum 1269 pg/mL High 232 - 1245 CBC W/Automated Diff 01/21/[address] [address] [phone] CBC W/Automated Diff (SEE NOTE) 14 WBC [...] Lymph 10.9 % Low 25.0 - 40.0 [place] 7.1 % 3.0 - 8.0 Eos 2.2 % 0.0 - 7.0 Baso 0.5 % 0.0 - 2.0 %Ig 0.2 % High 0.0 - 0.0 %NRBC 0.0 % 0.0 - 0.0 #Neut 4.37 10^3/uL 2.00 - 6.90 #Lymph 0.60 10^3/uL 0.60 - 3.40 #[place] 0.39 10^3/uL 0.00 - 0.90 #Eos 0.12 [...] Normal: Normal 16 Laboratory test finding 01/21/[address] [address] [phone] Magnesium Serum 2.0 mg/dL 1.7 - 2.2 Comprehensive Metabolic Panel 01/21/2021 [facility] [address] [place] [phone] [phone] Comprehensive Metabo (SEE NOTE) 17 Sodium 140 [...] >60 mL/min 18 Laboratory test finding [facility] [address] [place] [address] [phone] Troponin T 0.06 NG/ML 0.00 - 0.10 19 Laboratory test finding 01/21/2021 [facility] [address] [place] [address] [phone] Troponin T 0.05 NG/ML 0.00 - 0.10 20 Laboratory test finding 01/21/2021 [place] [address] [phone] Troponin T 0.05 NG/ML 0.00 - 0.10 21 Alcohol Ethyl Blood 01/20/[address] [address] [phone] Alcohol 70.0 mg/dL Alcohol % 0.07 % High 0.00 - 0.01 22 CBC W/Automated Diff 01/20/[address] [address] [phone] CBC W/Automated Diff (SEE NOTE) 23 WBC [...] Lymph 14.2 % Low 25.0 - 40.0 [place] 7.7 % 3.0 - 8.0 Eos 3.2 % 0.0 - 7.0 Baso 0.3 % 0.0 - 2.0 %Ig 0.3 % High 0.0 - 0.0 %NRBC 0.0 % 0.0 - 0.0 #Neut 4.66 10^3/uL 2.00 - 6.90 #Lymph 0.89 10^3/uL 0.60 - 3.40 #[place] 0.48 10^3/uL 0.00 - 0.90 #Eos 0.20 10^3/uL 0.00 - 0.70 #Baso 0.02 10^3/uL 0.00 - 0.20 #Ig 0.02 10^3/uL 0.00 - 0.10 #NRBC 0.00 10^3/uL 0.00 - 0.00 Manual Diff NOT INDICATED RBC Morph NOT INDICATED Laboratory test finding 01/20/2021 [facility] [address] [place] [phone] Troponin T 0.03 NG/ML 0.00 - 0.10 24 Comprehensive Metabolic Panel 01/20/2021 [facility] [address] [place] [phone] Comprehensive Metabo (SEE NOTE) 25 Sodium 140 [...] >60 mL/min 26 Laboratory test finding 01/20/[address] [phone] Pro-BNP 6632 pg/mL High 0 - 125 CBC W/Automated Diff 01/08/[address] [address] [phone] CBC W/Automated Diff (SEE NOTE) 27 WBC [...] Lymph 9.1 % Low 25.0 - 40.0 [place] 10.7 % High 3.0 - 8.0 Eos 3.2 % 0.0 - 7.0 Baso 0.8 % 0.0 - 2.0 %Ig 0.2 % High 0.0 - 0.0 %NRBC 0.0 % 0.0 - 0.0 #Neut 3.84 10^3/uL 2.00 - 6.90 #Lymph 0.46 10^3/uL Low 0.60 - 3.40 #[place] 0.54 10^3/uL 0.00 - 0.90 #Eos 0.16 10^3/uL 0.00 - 0.70 #Baso 0.04 10^3/uL 0.00 - 0.20 #Ig 0.01 10^3/uL 0.00 - 0.10 #NRBC 0.00 10^3/uL 0.00 - 0.00 Manual Diff NOT INDICATED RBC Morph NOT INDICATED Comprehensive Metabolic Panel 01/08/2021 [facility] [address] [address] [phone] Comprehensive Metabo (SEE NOTE) 28 Sodium 139 [...] >60 mL/min 29 CBC W/Automated Diff 01/07/[address] [address] [phone] CBC W/Automated Diff (SEE NOTE) 30, 31 [...] Lymph 10.9 % Low 25.0 - 40.0 [place] 9.1 % High 3.0 - 8.0 Eos 3.4 % 0.0 - 7.0 Baso 0.4 % 0.0 - 2.0 %Ig 0.4 % High 0.0 - 0.0 %NRBC 0.0 % 0.0 - 0.0 #Neut 3.77 10^3/uL 2.00 - 6.90 #Lymph 0.54 10^3/uL Low 0.60 - 3.40 #[place] 0.45 10^3/uL 0.00 - 0.90 #Eos 0.17 10^3/uL 0.00 - 0.70 #Baso 0.02 10^3/uL 0.00 - 0.20 #Ig 0.02 10^3/uL 0.00 - 0.10 #NRBC 0.00 10^3/uL 0.00 - 0.00 Manual Diff NOT INDICATED RBC Morph NOT INDICATED Laboratory test finding 01/07/2021 [facility] [address] [place] [address] [phone] Troponin T 0.02 NG/ML 0.00 - 0.10 32 Comprehensive Metabolic Panel 01/07/2021 [facility] [address] [place] [address] [phone] Comprehensive Metabo (SEE NOTE) 33 Sodium 139 [...] >60 mL/min 34 CBC W/Automated Diff 01/06/[address] [address] [phone] CBC W/Automated Diff (SEE NOTE) 35 WBC [...] Lymph 10.5 % Low 25.0 - 40.0 [place] 8.4 % High 3.0 - 8.0 Eos 2.3 % 0.0 - 7.0 Baso 0.3 % 0.0 - 2.0 %Ig 0.3 % High 0.0 - 0.0 %NRBC 0.0 % 0.0 - 0.0 #Neut 4.75 10^3/uL 2.00 - 6.90 #Lymph 0.64 10^3/uL 0.60 - 3.40 #[place] 0.51 10^3/uL 0.00 - 0.90 #Eos 0.14 10^3/uL 0.00 - 0.70 #Baso 0.02 10^3/uL 0.00 - 0.20 #Ig 0.02 10^3/uL 0.00 - 0.10 #NRBC 0.00 10^3/uL 0.00 - 0.00 Manual Diff NOT INDICATED RBC Morph NOT INDICATED Comprehensive Metabolic Panel 01/06/2021 [facility] [address] [place] [address] [phone] Comprehensive Metabo (SEE NOTE) 36 Sodium 141 [...] >60 mL/min 37 Laboratory test finding 01/06/2021 [facility] [address] [place] [phone] Iron 40 g/dL Low 42 - 135 Laboratory test finding 01/05/2021 [facility] [address] [place] [address] [phone] Magnesium Serum 1.8 mg/dL 1.7 - 2.2 CBC W/Automated Diff 01/05/[address] [address] [phone] CBC W/Automated Diff (SEE NOTE) 38 WBC [...] Lymph 11.6 % Low 25.0 - 40.0 [place] 8.5 % High 3.0 - 8.0 Eos 1.7 % 0.0 - 7.0 Baso 0.6 % 0.0 - 2.0 %Ig 0.4 % High 0.0 - 0.0 %NRBC 0.0 % 0.0 - 0.0 #Neut 4.21 10^3/uL 2.00 - 6.90 #Lymph 0.63 10^3/uL 0.60 - 3.40 #[place] 0.46 10^3/uL 0.00 - 0.90 #Eos 0.09 10^3/uL 0.00 - 0.70 #Baso 0.03 10^3/uL 0.00 - 0.20 #Ig 0.02 10^3/uL 0.00 - 0.10 #NRBC 0.00 10^3/uL 0.00 - 0.00 Manual Diff NOT INDICATED RBC Morph NOT INDICATED Comprehensive Metabolic Panel 01/05/2021 [facility] [address] [place] [address] [phone] Comprehensive Metabo (SEE NOTE) 39 Sodium 141 [...] >60 mL/min 40 Laboratory test finding 01/04/2021 [facility] [address] [place], [place] [phone] Potassium 4.1 mEq/L 3.6 - 5.0 Laboratory test finding 01/04/2021 [facility] [address] [place] [address] [phone] Troponin T 0.02 NG/ML 0.00 - 0.10 41 Comprehensive Metabolic Panel 01/04/2021 [facility] [address] [place] [address] [phone] Comprehensive Metabo (SEE NOTE) 42 Sodium 142 [...] >60 mL/min 43 CBC W/Automated Diff 01/04/[address] [address] [phone] CBC W/Automated Diff (SEE NOTE) 44 WBC [...] Lymph 12.8 % Low 25.0 - 40.0 [place] 8.0 % 3.0 - 8.0 Eos 2.1 % 0.0 - 7.0 Baso 0.3 % 0.0 - 2.0 %Ig 0.3 % High 0.0 - 0.0 %NRBC 0.0 % 0.0 - 0.0 #Neut 4.47 10^3/uL 2.00 - 6.90 #Lymph 0.75 10^3/uL 0.60 - 3.40 #[place] 0.47 10^3/uL 0.00 - 0.90 #Eos 0.12 10^3/uL 0.00 - 0.70 #Baso 0.02 10^3/uL 0.00 - 0.20 #Ig 0.02 10^3/uL 0.00 - 0.10 #NRBC 0.00 10^3/uL 0.00 - 0.00 Manual Diff NOT INDICATED RBC Morph NOT INDICATED Laboratory test finding 01/04/[address] [address] [phone] Magnesium Serum 1.8 mg/dL 1.7 - 2.2 Iron 41 g/dL Low 42 - 135 Laboratory test finding 01/04/[address] [address] [phone] Troponin T 0.02 NG/ML 0.00 - 0.10 45 Laboratory test finding 01/03/2021 [facility] [address] [place] [address] [phone] Magnesium Serum 1.9 mg/dL 1.7 - 2.2 46 TSH Highly Sensitive 3.56 uIU/mL 0.47 - 5.01 T4 - Free 1.37 ng/dL 0.93 - 1.70 Laboratory test finding 01/03/2021 [facility] [address] [place] [address] [phone] Troponin T 0.02 NG/ML 0.00 - 0.10 47 Comprehensive Metabolic Panel 01/03/2021 [facility] [address] [place] [phone] [phone] Comprehensive Metabo (SEE NOTE) 48 Sodium 143 [...] >60 mL/min 49 Laboratory test finding 01/03/2021 [facility] [address] [place] [address] [phone] Troponin T 0.02 NG/ML 0.00 - 0.10 50 Pro-BNP 6929 pg/mL High 0 - 125 CBC W/Automated Diff 01/03/[address] [address] [phone] CBC W/Automated Diff (SEE NOTE) 51 WBC [...] Lymph 8.7 % Low 25.0 - 40.0 [place] 6.6 % 3.0 - 8.0 Eos 0.9 % 0.0 - 7.0 Baso 0.3 % 0.0 - 2.0 %Ig 0.5 % High 0.0 - 0.0 %NRBC 0.0 % 0.0 - 0.0 #Neut 5.25 10^3/uL 2.00 - 6.90 #Lymph 0.55 10^3/uL Low 0.60 - 3.40 #[place] 0.42 10^3/uL 0.00 - 0.90 #Eos 0.06 10^3/uL 0.00 - 0.70 #Baso 0.02 10^3/uL 0.00 - 0.20 #Ig 0.03 10^3/uL 0.00 - 0.10 #NRBC 0.00 10^3/uL 0.00 - 0.00 Manual Diff NOT INDICATED RBC Morph NOT INDICATED Laboratory test finding 01/03/[address] [address] [phone] Troponin T 0.02 NG/ML 0.00 - 0.10 52 Laboratory test finding 12/12/[address] [address] [phone] Magnesium Serum 2.1 mg/dL 1.7 - 2.2 Pro-BNP 7997 pg/mL High 0 - 125 Comprehensive Metabolic Panel 12/12/2020 [facility] [address] [address] [phone] Comprehensive Metabo (SEE NOTE) 53 Sodium 142 [...] GFR >60 mL/min 54 Cve Panel 12/12/[address] [address] [phone] Cve Panel (SEE NOTE) 55 Cholesterol 108 mg/dL Low 131 - 200 Triglycerides 52 mg/dL 35 - 160 HDL 40 mg/dL 29 - 86 LDL 68 mg/dL 65 - 175 Risk Factor 2.7 Low 3.4 - 4.9 LDL/HDL 1.70 1.00 - 3.55 56 CBC W/Automated Diff 12/12/[address] [address] [phone] CBC W/Automated Diff (SEE NOTE) 57 WBC [...] Lymph 7.8 % Low 25.0 - 40.0 [place] 7.1 % 3.0 - 8.0 Eos 0.7 % 0.0 - 7.0 Baso 0.3 % 0.0 - 2.0 %Ig 0.4 % High 0.0 - 0.0 %NRBC 0.0 % 0.0 - 0.0 #Neut 5.88 10^3/uL 2.00 - 6.90 #Lymph 0.55 10^3/uL Low 0.60 - 3.40 #[place] 0.50 10^3/uL 0.00 - 0.90 #Eos 0.05 10^3/uL 0.00 - 0.70 #Baso 0.02 10^3/uL 0.00 - 0.20 #Ig 0.03 10^3/uL 0.00 - 0.10 #NRBC 0.00 10^3/uL 0.00 - 0.00 Manual Diff NOT INDICATED RBC Morph NOT INDICATED Urinalysis 11/22/[address] [address] [phone] Urinalysis (SEE NOTE) 58, 59 Source R Color yellow Normal: Yellow Clarity clear Normal: Clear Spec [place] 1.015 1.001 - 1.030 pH 5 5 - 9 Glucose NORM Normal: Negative Bilirubin NEG Normal: Negative Ketone NEG Normal: Negative Protein NEG Normal: Negative Nitrite NEG Normal: Negative Blood NEG Normal: Negative Leuk Est NEG Normal: Negative Urobilinogen NOR less than 1.0 mg/dL Microscopic Not Indicate CBC W/Automated Diff 11/22/2020 [place] [phone] CBC W/Automated Diff (SEE NOTE) 60 WBC [...] Lymph 7.2 % Low 25.0 - 40.0 [place] 5.8 % 3.0 - 8.0 Eos 0.7 % 0.0 - 7.0 Baso 0.1 % 0.0 - 2.0 %Ig 0.4 % High 0.0 - 0.0 %NRBC 0.0 % 0.0 - 0.0 #Neut 5.73 10^3/uL 2.00 - 6.90 #Lymph 0.48 10^3/uL Low 0.60 - 3.40 #[place] 0.39 10^3/uL 0.00 - 0.90 #Eos 0.05 10^3/uL 0.00 - 0.70 #Baso 0.01 10^3/uL 0.00 - 0.20 #Ig 0.03 10^3/uL 0.00 - 0.10 #NRBC 0.00 10^3/uL 0.00 - 0.00 Manual Diff NOT INDICATED RBC Morph NOT INDICATED Laboratory test finding 11/22/2020 [facility] [address] [place] [address] [phone] Hgba1c 5.2 % 4.4 - 6.1 61 Iron 42 g/dL 42 - 135 Magnesium Serum 2.2 mg/dL 1.7 - 2.2 Comprehensive Metabolic Panel 11/22/2020 [facility] [address] [place] [address] [phone] Comprehensive Metabo (SEE NOTE) 62 Sodium 142 [...] GFR 56 mL/min 63 Cve Panel 11/22/[address] [address] [phone] Cve Panel (SEE NOTE) 64 Cholesterol 109 mg/dL Low 131 - 200 Triglycerides 45 mg/dL 35 - 160 HDL 45 mg/dL 29 - 86 LDL 66 mg/dL 65 - 175 Risk Factor 2.4 Low 3.4 - 4.9 LDL/HDL 1.47 1.00 - 3.55 65 Laboratory test finding 11/22/[address] [address] [phone] TSH Highly Sensitive 3.34 uIU/mL 0.47 - [...] PANEL 65 CVE RISK CHOL/HDL LDL/HDL MEN: / AVERAGE 3.43 1.00 AVERAGE 4.97 3.55 2X AVERAGE 9.55 6.25 3X AVERAGE 23.99 7.99 WOMEN: / AVERAGE 3.27 1.47 AVERAGE 4.44 3.22 2X AVERAGE 7.05 5.03 3X AVERAGE 11.04 6.14 Procedures Date Code Description Status 01/23/2021 70821 Hospital Disch MGMT Completed 01/22/2021 40052 Hospital Care Low Completed 01/21/2021 68859 Hospital Care Moderate Completed 01/20/2021 29206 Hospital Care Initial Level 2 Co mpleted 01/08/2021 25273 Hospital Disch MGMT Completed 01/07/2021 41585 Hospital Care Low Completed 01/06/2021 66036 Hospital Care Low Completed 01/05/2021 57531 Hospital Care Moderate Completed 01/04/2021 77911 Hospital Care Moderate Completed 01/03/2021 03307 Hospital Care Initial Level 2 Co mpleted 12/24/2020 11975 Office/Outpatient Established Lo w MDM 20-29 Min Completed 12/23/2020 54717 Myocardial Perfusion,WM & Ef Com pleted 12/19/2020 47213 Office/Outpatient Established Mo d MDM 30-39 Min Completed 12/19/2020 71975 EKG Completed 12/17/2020 76027 Office/Outpatient Established Mo d MDM 30-39 Min Completed 12/12/2020 21072 Office/Outpatient Established Mo d MDM 30-39 Min Completed 11/26/2020 75704 Office/Outpatient Established Mo d MDM 30-39 Min Completed 11/26/2020 42321 Echocardiogram, Complete Complet ed 11/26/2020 01226 EKG Completed 11/22/2020 48891 Office/Outpatient Established Mo d MDM 30-39 Min Completed 10/22/2020 87045 Office/Outpatient Established Mo d MDM 30-39 Min Completed Encounters Type Date Location Provider Dx Diagnosis Office Visit 12/24/2020 11:30a [facility] Dave Elizondo M[facility] I11.9 Hypertensive heart disease without heart failure E78.5 Hyperlipidemia, unspecified I42.9 Cardiomyopathy, unspecified Office Visit 12/19/2020 10:15a [facility] Dave Elizondo M[facility] I11.9 Hypertensive heart disease without heart failure D50.9 Iron deficiency anemia, unsp ecified E78.5 Hyperlipidemia, unspecified I50.20 Unspecified systolic (conges tive) heart failure I49.49 Other premature depolarizati on Office Visit 12/17/2020 10:15a [facility] Dave Elizondo M.D[facility]. I11.9 Hypertensive heart disease without heart failure K59.00 Constipation, unspecified I50.20 Unspecified systolic (conges tive) heart failure I42.9 Cardiomyopathy, unspecified Office Visit 12/12/2020 10:00a [facility] Dave Elizondo M.D[facility] I11.9 Hypertensive heart disease without heart failure J43.9 Emphysema, unspecified Office Visit 11/26/2020 10:30a [facility] Dave Elizondo M.D[facility] I50.20 Unspecified systolic (congestive) heart failure I11.9 [facility] Acute upper respiratory infe ction, unspecified I42.9 Cardiomyopathy, unspecified I49.49 Other premature depolarizati on Office Visit 11/22/2020 10:00a [facility] Dave Elizondo M.D[facility] I50.20 Unspecified systolic (congestive) heart failure I11.9 [facility]5 Hyperlipidemia, unspecified Office Visit 10/22/2020 11:00a [facility] Dave Elizondo M[facility] 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 01/23/2021 I50.20 Unspecified systolic (congestive ) heart failure Dave [facility]ondo [facility] 01/23/2021 I42.9 Cardiomyopathy, unspecified Samreen Elizondo M.D[facility]. 01/23/2021 I48.0 Paroxysmal atrial fibrillation Sandra Elizondo M.D[facility] 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 01/22/2021 I50.20 Unspecified systolic (congestive ) heart failure Dave Elizondo M.D[facility] 01/22/2021 I42.9 Cardiomyopathy, unspecified Samreen Elizondo M.D[facility] 01/22/2021 I48.0 Paroxysmal atrial fibrillation Sandra Elizondo M.D[facility] 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 01/21/2021 I50.20 Unspecified systolic (congestive ) heart failure Dave Elizondo M[facility] 01/21/2021 I48.0 Paroxysmal atrial fibrillation Sandra Elizondo M.D[facility] 01/08/2021 I50.20 Unspecified systolic (congestive ) heart failure Dave Elizondo M.D[facility] 01/08/2021 I42.9 Cardiomyopathy, unspecified Samreen Elizondo M.D[facility] 01/08/2021 I25.10 Atherosclerotic hear t disease of [place] coronary artery without angina pectoris Dave Elizondo M[facility] 01/08/2021 J44.9 Chronic obstructive pulmonary di sease, unspecified Dave Elizondo M[facility] 01/07/2021 I50.20 Unspecified systolic (congestive ) heart failure Dave Elizondo [facility] 01/07/2021 I42.9 Cardiomyopathy, unspecified Samreen Elizondo M.D[facility] 01/07/2021 I25.10 Atherosclerotic hear t disease of [place] coronary artery without angina pectoris Dave El[facility]ondo [facility] 01/07/2021 J44.9 Chronic obstructive pulmonary di sease, unspectaylor Elizondo M.D[facility]. 01/06/2021 I50.20 Unspecified systolic (congestive ) heart failure Dave Elizondo M.D[facility] 01/06/2021 I42.9 Cardiomyopathy, unspecified Samreen Elizondo M.D[facility] 01/06/2021 I25.10 Atherosclerotic hear t disease of [place] coronary artery without angina pectoris Dave Elizondo [facility] 01/06/2021 J44.9 Chronic obstructive pulmonary di sease, unspectaylor Elizondo M.D[facility] 01/05/2021 I50.20 Unspecified systolic (congestive ) heart failure Dave Elizondo M.D[facility] 01/05/2021 I42.9 Cardiomyopathy, unspecified Samreen Elizondo M.D[facility] 01/05/2021 I25.10 Atherosclerotic hear t disease of [place] coronary artery without angina pectoris Dave Elizondo M.D[facility] 01/05/2021 J44.9 Chronic obstructive pulmonary di sease, unspectaylor Elizondo M[facility] 01/04/2021 I50.20 Unspecified systolic (congestive ) heart failure Dave [facility]ondo [facility] 01/04/2021 I42.9 Cardiomyopathy, unspecified Samreen [facility]ondo M[facility] 01/04/2021 I25.10 Atherosclerotic hear t disease of [place] coronary artery without angina pectoris Dave [facility]ondo [facility] 01/04/2021 J44.9 Chronic obstructive pulmonary di sease, unspecified Dave [facility]ondo [facility] 01/03/2021 I50.20 Unspecified systolic (congestive ) heart failure Dave [facility]ondo [facility] 01/03/2021 I42.9 Cardiomyopathy, unspecified Samreen [facility]izondo M[facility] 01/03/2021 I25.10 Atherosclerotic hear t disease of [place] coronary artery without angina pectoris Dave [facility]ondo [facility] 01/03/2021 J44.9 Chronic obstructive pulmonary di sease, unspecified Dave [facility]ondo [facility] 12/24/2020 I11.9 Hypertensive heart disease witho ut heart failure Dave [facility]ondo [facility] 12/24/2020 E78.5 Hyperlipidemia, unspecified Samreen [facility]ondo M[facility] 12/24/2020 I42.9 Cardiomyopathy, unspecified Samreen [facility]ondo [facility] 12/23/2020 I25.10 Atherosclerotic hear t disease of [place] coronary artery without angina pectoris Dave Elizondo [...] M.D.,[facility] 12/12/2020 I11.9 Hypertensive heart disease witho mi heart failure Dave [facility]ondo [facility] 12/12/2020 J43.9 Emphysema, unspecified Dave silva M.D[facility] 11/26/2020 I50.20 Unspecified systolic (congestive ) heart failure Dave [facility]ondo [facility] 11/26/2020 I11.9 Hypertensive heart disease witho mi heart failure Dave [facility]ondo [facility] 11/26/2020 J06.9 Acute upper respiratory infectio n, fabrizio Elizondo M.D[facility] 11/26/2020 I42.9 Cardiomyopathy, unspecified Samreen [facility]ondo M[facility] 11/26/2020 I49.49 Other premature depolarization Sandra [facility] M[facility] 11/22/2020 I50.20 Unspecified systolic (congestive ) heart failure Dave [facility]ondo [facility] 11/22/2020 I11.9 Hypertensive heart disease witho ut heart failure Dave [facility]ondo [facility] 11/22/2020 E78.5 Hyperlipidemia, unspecified Samreen [facility]ondo M[facility] 10/22/2020 I11.9 Hypertensive heart disease witho mi heart failure Dave [facility]ondo [facility] 10/22/2020 E78.5 Hyperlipidemia, unspecified Samreen [facility]ondo M[facility] 10/22/2020 I50.20 Unspecified systolic (congestive ) heart failure Dave [facility]ondo M[facility] 10/22/2020 I95.9 Hypotension, unspecified Dave greene M.D[facility] Plan of Treatment Future Appointment(s):* 03/14/2021 11:15 am - Dave [facility]ondo [facility] at [facility] Referrals Refer to Reason for Referral Status Appt Date Asuncion Underwood MD Please eval. and treat this patient for high creatinine, ENDY.. Thank you. Created [id number] [place] [address] [phone] Mick Ching MD Please eval. and treat this patient for positive nuclear stress test, he needs a cardiac cath. Thank you. Created [address] [place] [address] [phone]
--- OUTSIDE RECORDS SUMMARY | 2021-03-19 12:32 | CCD | Continuity of Care Document ---
Author Author [facility] Organization Unknown Address [address] [place] [address] Phone Unavailable Care Team Providers Care Geographic Analyst Name Role Phone Jon Elizondo M.D. AUTM [phone] Myriam Jauregui M.D. AUTM [phone] [facility] Care Everywhere AUTM Cam Foster M.D. AUTM [phone] Problems Active Problems Provider Date Carotid artery [...] SIG Qnty Indications Ordering Provide r Date [place] Extract qd Unknown Nitro-Dur 0.4mg/HR Patches 24HR [...] <pending> Procedures Date Code Description Status 03/10/2021 05154 Duplex Scan Extracranial Arterie s, Complete Bilateral Study Completed 11/05/2020 80012 Office/Outpatient Established Lo w [facility] 20-29 Min Completed 11/05/2020 58829 Duplex Scan Extracranial Arterie s, Complete Bilateral [...]
--- OUTSIDE RECORDS SUMMARY | 2021-03-19 12:32 | CCD | Continuity of Care Document ---
Author Author [facility] Organization Unknown Address [address] [place] [address] Phone Unavailable Care Team Providers Care Assembler Handbags Name Role Phone Jon Elizondo M.D. AUTM [phone] Myriam Jauregui M.D. AUTM [phone] [facility] Care Everywhere AUTM Cam Foster M.D. AUTM [phone] Problems Active Problems Provider Date Carotid artery [...] SIG Qnty Indications Ordering Provide r Date [place] Extract qd Unknown Nitro-Dur 0.4mg/HR Patches 24HR [...] <pending> Procedures Date Code Description Status 03/10/2021 01834 Office/Outpatient Established [place] w [facility] 20-29 Min Completed 03/10/2021 33317 Duplex Scan Extracranial Arterie s, Complete Bilateral Study Completed 11/05/2020 38759 Office/Outpatient Established [place] w [facility] 20-29 Min Completed 11/05/2020 54430 Duplex Scan Extracranial Arterie s, Complete Bilateral [...] and stenosis of other precerebral arteries Anton Oodnnell M.D. 11/05/2020 I65.23 Occlusion and stenosis of [...]
--- OUTSIDE RECORDS SUMMARY | 2021-03-19 12:33 | CCD | Continuity of Care Document ---
Author Author Adebayo ARCHER P. C. Organization Unknown Address [address] [place] [address] Phone [phone] Care Team Providers Care Desk Interviewer Name Role Phone Sami Kalyan [facility] AUTM [phone] Mick Ching MD AUTM [phone] JON ELIZONDO M.D. P.C. AUTM [phone] Social History Type Date Description Comments Sex Unknown Allergies and adverse reactions Active Allergies Criticality Reaction | Severity Comments Date Tolmetin Unable to assess criticality 03/28/2020 Medications Active Medications SIG Qnty Indications Ordering Provide r Date Wellbutrin SR 150mg Tablets ER 12H R 1 by mouth twice a day 60tarachele Elizondo M.D[facility] 2020 Ipratropium [place]/Albuterol Sulfate 0.5-2.5(3)mg/3ML Solution inhale 1 vial via nebulizer twice daily 90ml Jon Elizondo [facility] 12/12/2020 Nebulizer Device use twice daily with duoneb 1unkristin Elizondo M.D.,[facility]. 12/13/19 21 Nicoderm CQ 21mg/24HR Patches 24HR apply patch daily and remove at bedtime 28unkristin Elizondo M.D[facility] 12/12/2020 Brilinta 90mg Tablets 1 by mouth every day 90tarachele Elizondo M.D[facility] 07/19/19 21 Levothyroxine Sodium 75mcg Tablets Jon Elizondo M.D[facility] 07/18/2020 Ferrous Sulfate 324(65Fe) mg Table ts DR 1 by mouth twice a day Jon Elizondo M.D[facility] 11/2020 Allopurinol 300mg Tablets 1 by mouth every day 90tabs Jon Elizondo M.D[facility] 03/18/20 20 Furosemide 40mg Tablets take one tablet by mouth twice a day 180tabs Jon Elizondo M[facility] [place] Extract 150mg Capsules take one tablet by mouth daily Jon Elizondo M[facility]. Vitamin C 500mg Capsules ever y day Jon Elizondo [facility] Multivitamin Adult Tablets take one tablet by mouth twice daily Jon Elizondo [facility] Nitrostat 0.4mg Tablets Sub one tablet by mouth for onset of chest pain, may repeat in five mins x2. if persists contact or call 911 25tabs Jon Elizondo [facility] Fluticasone Propionate 50mcg/Act Suspension 2 sprays in each nostril daily Jon reis M.D[facility]. Magnesium Oxide 400mg Tablets 1 by mouth twice a day 90tabs Jon Elizondo [facility] Omeprazole 20mg Capsules DR 1 by mouth every day 90caps Jon [facility]izondo [facility]. Metoprolol Succinate ER 25mg Tablets ER 24HR take one tablet by mouth daily Jon reis M.D[facility]. Loratadine 10mg Tablets take one tablet by mouth daily Jon Elizondo [facility]. Atorvastatin Calcium 80mg Tablets take one tablet by mouth daily Jon Elizondo [facility] Aspirin [address] 1 by mouth every day Jon Elizondo [facility] History Medications Amoxicillin 500mg Capsules take one tablet by mouth three times daily for 10 days 30caps Jon silva M.D[facility] 11/26/2020 - 12/19/2020 Medications Administered in Office Medication SIG Qnty Indications Ordering Provider Date Lexiscan Injection Jon Elizondo M[facility] 12/23/2020 Technetium TC 99M Sestamibi Injection Jon Elizondo M.D[facility] 12/23/2020 Technetium TC 99M Sestamibi Injection Jon Elizondo M.D[facility] 04/29/2018 Technetium TC 99M Sestamibi Injection Jon Elizondo M.D[facility] 07/30/2017 Vital Signs Date Vital Result Comment 12/24/2020 11:39am Height 69 inches 5'9" Weight 197.12 lb BMI (Body Mass Index) 29.1 kg/m2 Body Temperature 97.9 F BP Systolic 116 mmHg BP Diastolic 66 mmHg Heart Rate 63 /min O2 % BldC Oximetry 99 % Respiratory Rate 18 /min 12/19/2020 10:25am Height 69 inches 5'9" Weight 194.00 lb BMI (Body Mass Index) 28.6 kg/m2 Body Temperature 97.7 F BP Systolic 117 mmHg BP Diastolic 70 mmHg Heart Rate 68 /min O2 % BldC Oximetry 97 % Results Test Acquired Date Facility Test Result H/L Range Note Laboratory test finding 01/23/[address] [address] [phone] Magnesium Serum 1.8 mg/dL 1.7 - 2.2 CBC W/Automated Diff 01/23/[address] [address] [phone] CBC W/Automated Diff (SEE NOTE) 1 WBC 5.8 10^3/uL 4.2 - 11.0 RBC [...] Lymph 9.0 % Low 25.0 - 40.0 Deuel 8.5 % High 3.0 - 8.0 Eos 3.8 % 0.0 - 7.0 Baso 0.2 % 0.0 - 2.0 %Ig 0.2 % High 0.0 - 0.0 %NRBC 0.0 % 0.0 - 0.0 #Neut 4.51 10^3/uL 2.00 - 6.90 #Lymph 0.52 10^3/uL Low 0.60 - 3.40 #Deuel 0.49 10^3/uL 0.00 - 0.90 #Eos 0.22 10^3/uL 0.00 - 0.70 #Baso 0.01 10^3/uL 0.00 - 0.20 #Ig 0.01 10^3/uL 0.00 - 0.10 #NRBC 0.00 10^3/uL 0.00 - 0.00 Manual Diff NOT INDICATED RBC Morph NOT INDICATED Comprehensive Metabolic Panel 01/23/2021 [facility] [address] [place], [place] [id number] [phone] Comprehensive Metabo (SEE NOTE) 2 Sodium 139 mEq/L 134 - 153 Potassium [...] 41 mL/min Afr Amer GFR 49 mL/min 3 CBC W/Automated Diff 01/22/[address] [address] [phone] CBC W/Automated Diff (SEE NOTE) 4 WBC 5.2 10^3/uL 4.2 - 11.0 RBC [...] Lymph 13.0 % Low 25.0 - 40.0 Deuel 8.7 % High 3.0 - 8.0 Eos 3.9 % 0.0 - 7.0 Baso 0.4 % 0.0 - 2.0 %Ig 0.4 % High 0.0 - 0.0 %NRBC 0.0 % 0.0 - 0.0 #Neut 3.81 10^3/uL 2.00 - 6.90 #Lymph 0.67 10^3/uL 0.60 - 3.40 #Deuel 0.45 10^3/uL 0.00 - 0.90 #Eos 0.20 10^3/uL 0.00 - 0.70 #Baso 0.02 10^3/uL 0.00 - 0.20 #Ig 0.02 10^3/uL 0.00 - 0.10 #NRBC 0.00 10^3/uL 0.00 - 0.00 Manual Diff NOT INDICATED RBC Morph NOT INDICATED Laboratory test finding 01/22/2021 [address] [place] [address] [phone] Pro-BNP 6385 pg/mL High 0 - 125 Magnesium Serum 1.8 mg/dL 1.7 - 2.2 Comprehensive Metabolic Panel 01/22/2021 [facility] [address] [place] [address] [phone] Comprehensive Metabo (SEE NOTE) 5 Sodium 140 mEq/L 134 - 153 Potassium [...] 46 mL/min Afr Amer GFR 56 mL/min 6 Laboratory test finding 01/22/2021 [place] [address] [phone] Troponin T 0.04 NG/ML 0.00 - 0.10 7 Laboratory test finding 01/21/2021 [place] [address] [phone] Iron 48 g/dL 42 - 135 Vitamin B12 Serum 1269 pg/mL High 232 - 1245 CBC W/Automated Diff 01/21/2021 [place] [address] [phone] CBC W/Automated Diff (SEE NOTE) 8 WBC 5.5 10^3/uL 4.2 - 11.0 RBC [...] Lymph 10.9 % Low 25.0 - 40.0 Deuel 7.1 % 3.0 - 8.0 Eos 2.2 % 0.0 - 7.0 Baso 0.5 % 0.0 - 2.0 %Ig 0.2 % High 0.0 - 0.0 %NRBC 0.0 % 0.0 - 0.0 #Neut 4.37 10^3/uL 2.00 - 6.90 #Lymph 0.60 10^3/uL 0.60 - 3.40 #Deuel 0.39 10^3/uL 0.00 - 0.90 #Eos 0.12 10^3/uL 0.00 - 0.70 #Baso 0.03 10^3/uL 0.00 - 0.20 #Ig 0.01 10^3/uL 0.00 - 0.10 #NRBC 0.00 10^3/uL 0.00 - 0.00 Manual Diff NOT INDICATED RBC Morph SEE BELOW Aniso 1+ Abnormal Normal: None Seen Poik 1+ Abnormal Normal: None Seen Hypo 1+ Abnormal Normal: None Seen 9 Teardrop 1+ Abnormal Normal: None Seen Ovalocytes 1+ Abnormal Normal: None Seen PLT Est NORMAL Normal: Normal 10 Laboratory test finding 01/21/2021 [facility] [address] [place], [place] [phone] Magnesium Serum 2.0 mg/dL 1.7 - 2.2 Comprehensive Metabolic Panel 01/21/2021 [facility] [address] [place] [address] [phone] Comprehensive Metabo (SEE NOTE) 11 Sodium 140 mEq/L 134 - 153 Potassium [...] 50 mL/min Afr Amer GFR >60 mL/min 12 Laboratory test finding 01/21/2021 [place] [address] [phone] Troponin T 0.07 NG/ML 0.00 - 0.10 13 Laboratory test finding 01/21/2021 [place] [address] [phone] Troponin T 0.06 NG/ML 0.00 - 0.10 14 Laboratory test finding 01/21/2021 [place] [address] [phone] Troponin T 0.05 NG/ML 0.00 - 0.10 15 Laboratory test finding 01/21/2021 [place] [address] [phone] Troponin T 0.05 NG/ML 0.00 - 0.10 16 Alcohol Ethyl Blood 01/20/2021 [place] [address] [phone] Alcohol 70.0 mg/dL Alcohol % 0.07 % High 0.00 - 0.01 17 CBC W/Automated Diff 01/20/2021 [place] [address] [phone] CBC W/Automated Diff (SEE NOTE) 18 WBC 6.3 10^3/uL 4.2 - 11.0 RBC [...] Lymph 14.2 % Low 25.0 - 40.0 Deuel 7.7 % 3.0 - 8.0 Eos 3.2 % 0.0 - 7.0 Baso 0.3 % 0.0 - 2.0 %Ig 0.3 % High 0.0 - 0.0 %NRBC 0.0 % 0.0 - 0.0 #Neut 4.66 10^3/uL 2.00 - 6.90 #Lymph 0.89 10^3/uL 0.60 - 3.40 #Deuel 0.48 10^3/uL 0.00 - 0.90 #Eos 0.20 10^3/uL 0.00 - 0.70 #Baso 0.02 10^3/uL 0.00 - 0.20 #Ig 0.02 10^3/uL 0.00 - 0.10 #NRBC 0.00 10^3/uL 0.00 - 0.00 Manual Diff NOT INDICATED RBC Morph NOT INDICATED Laboratory test finding 01/20/2021 [facility] [address] [place] [address] [phone] Troponin T 0.03 NG/ML 0.00 - 0.10 19 Comprehensive Metabolic Panel 01/20/2021 [facility] [address] [place] [address] [phone] Comprehensive Metabo (SEE NOTE) 20 Sodium 140 mEq/L 134 - 153 Potassium [...] 50 mL/min Afr Amer GFR >60 mL/min 21 Laboratory test finding 01/20/[address] [address] [phone] Pro-BNP 6632 pg/mL High 0 - 125 CBC W/Automated Diff 01/08/[address] [address] [phone] CBC W/Automated Diff (SEE NOTE) 22 WBC 5.1 10^3/uL 4.2 - 11.0 RBC [...] Lymph 9.1 % Low 25.0 - 40.0 Deuel 10.7 % High 3.0 - 8.0 Eos 3.2 % 0.0 - 7.0 Baso 0.8 % 0.0 - 2.0 %Ig 0.2 % High 0.0 - 0.0 %NRBC 0.0 % 0.0 - 0.0 #Neut 3.84 10^3/uL 2.00 - 6.90 #Lymph 0.46 10^3/uL Low 0.60 - 3.40 #Deuel 0.54 10^3/uL 0.00 - 0.90 #Eos 0.16 10^3/uL 0.00 - 0.70 #Baso 0.04 10^3/uL 0.00 - 0.20 #Ig 0.01 10^3/uL 0.00 - 0.10 #NRBC 0.00 10^3/uL 0.00 - 0.00 Manual Diff NOT INDICATED RBC Morph NOT INDICATED Comprehensive Metabolic Panel 01/08/2021 [facility] [address] [place] [address] [phone] Comprehensive Metabo (SEE NOTE) 23 Sodium 139 mEq/L 134 - 153 Potassium [...] >60 mL/min Afr Amer GFR >60 mL/min 24 Laboratory test finding 01/07/2021 [facility] [address] [place] [address] [phone] Troponin T 0.02 NG/ML 0.00 - 0.10 25 Comprehensive Metabolic Panel 01/07/2021 [facility] [address] [place] [address] [phone] Comprehensive Metabo (SEE NOTE) 26, 27 Sodium 139 mEq/L 134 - 153 Potassium [...] >60 mL/min Afr Amer GFR >60 mL/min 28 CBC W/Automated Diff 01/07/[address] [address] [phone] CBC W/Automated Diff (SEE NOTE) 29 WBC 5.0 10^3/uL 4.2 - 11.0 RBC [...] Lymph 10.9 % Low 25.0 - 40.0 Deuel 9.1 % High 3.0 - 8.0 Eos 3.4 % 0.0 - 7.0 Baso 0.4 % 0.0 - 2.0 %Ig 0.4 % High 0.0 - 0.0 %NRBC 0.0 % 0.0 - 0.0 #Neut 3.77 10^3/uL 2.00 - 6.90 #Lymph 0.54 10^3/uL Low 0.60 - 3.40 #Deuel 0.45 10^3/uL 0.00 - 0.90 #Eos 0.17 10^3/uL 0.00 - 0.70 #Baso 0.02 10^3/uL 0.00 - 0.20 #Ig 0.02 10^3/uL 0.00 - 0.10 #NRBC 0.00 10^3/uL 0.00 - 0.00 Manual Diff NOT INDICATED RBC Morph NOT INDICATED Laboratory test finding 01/06/2021 [facility] [address] [place] [address] [phone] Iron 40 g/dL Low 42 - 135 Comprehensive Metabolic Panel 01/06/2021 [facility] [address] [place] [address] [phone] Comprehensive Metabo (SEE NOTE) 30 Sodium 141 mEq/L 134 - 153 Potassium [...] >60 mL/min Afr Amer GFR >60 mL/min 31 CBC W/Automated Diff 01/06/[address] [address] [phone] CBC W/Automated Diff (SEE NOTE) 32 WBC 6.1 10^3/uL 4.2 - 11.0 RBC [...] Lymph 10.5 % Low 25.0 - 40.0 Deuel 8.4 % High 3.0 - 8.0 Eos 2.3 % 0.0 - 7.0 Baso 0.3 % 0.0 - 2.0 %Ig 0.3 % High 0.0 - 0.0 %NRBC 0.0 % 0.0 - 0.0 #Neut 4.75 10^3/uL 2.00 - 6.90 #Lymph 0.64 10^3/uL 0.60 - 3.40 #Deuel 0.51 10^3/uL 0.00 - 0.90 #Eos 0.14 10^3/uL 0.00 - 0.70 #Baso 0.02 10^3/uL 0.00 - 0.20 #Ig 0.02 10^3/uL 0.00 - 0.10 #NRBC 0.00 10^3/uL 0.00 - 0.00 Manual Diff NOT INDICATED RBC Morph NOT INDICATED Laboratory test finding 01/05/[address] [address] [phone] Magnesium Serum 1.8 mg/dL 1.7 - 2.2 CBC W/Automated Diff 01/05/[address] [address] [phone] CBC W/Automated Diff (SEE NOTE) 33 WBC 5.4 10^3/uL 4.2 - 11.0 RBC [...] Lymph 11.6 % Low 25.0 - 40.0 Deuel 8.5 % High 3.0 - 8.0 Eos 1.7 % 0.0 - 7.0 Baso 0.6 % 0.0 - 2.0 %Ig 0.4 % High 0.0 - 0.0 %NRBC 0.0 % 0.0 - 0.0 #Neut 4.21 10^3/uL 2.00 - 6.90 #Lymph 0.63 10^3/uL 0.60 - 3.40 #Deuel 0.46 10^3/uL 0.00 - 0.90 #Eos 0.09 10^3/uL 0.00 - 0.70 #Baso 0.03 10^3/uL 0.00 - 0.20 #Ig 0.02 10^3/uL 0.00 - 0.10 #NRBC 0.00 10^3/uL 0.00 - 0.00 Manual Diff NOT INDICATED RBC Morph NOT INDICATED Comprehensive Metabolic Panel 01/05/2021 [facility] [address] [place] [address] [phone] Comprehensive Metabo (SEE NOTE) 34 Sodium 141 mEq/L 134 - 153 Potassium [...] 54 mL/min Afr Amer GFR >60 mL/min 35 Laboratory test finding 01/04/2021 [facility] [address] [place] [address] [phone] Potassium 4.1 mEq/L 3.6 - 5.0 Laboratory test finding 01/04/2021 [place] [address] [phone] Troponin T 0.02 NG/ML 0.00 - 0.10 36 Laboratory test finding 01/04/2021 [place] [address] [phone] Magnesium Serum 1.8 mg/dL 1.7 - 2.2 Iron 41 g/dL Low 42 - 135 CBC W/Automated Diff 01/04/[address] [address] [phone] CBC W/Automated Diff (SEE NOTE) 37 WBC 5.9 10^3/uL 4.2 - 11.0 RBC [...] Lymph 12.8 % Low 25.0 - 40.0 Deuel 8.0 % 3.0 - 8.0 Eos 2.1 % 0.0 - 7.0 Baso 0.3 % 0.0 - 2.0 %Ig 0.3 % High 0.0 - 0.0 %NRBC 0.0 % 0.0 - 0.0 #Neut 4.47 10^3/uL 2.00 - 6.90 #Lymph 0.75 10^3/uL 0.60 - 3.40 #Deuel 0.47 10^3/uL 0.00 - 0.90 #Eos 0.12 10^3/uL 0.00 - 0.70 #Baso 0.02 10^3/uL 0.00 - 0.20 #Ig 0.02 10^3/uL 0.00 - 0.10 #NRBC 0.00 10^3/uL 0.00 - 0.00 Manual Diff NOT INDICATED RBC Morph NOT INDICATED Comprehensive Metabolic Panel 01/04/2021 [facility] [address] [place] [address] [phone] Comprehensive Metabo (SEE NOTE) 38 Sodium 142 mEq/L 134 - 153 Potassium [...] >60 mL/min Afr Amer GFR >60 mL/min 39 Laboratory test finding 01/04/2021 [facility] [address] [place] [address] [phone] Troponin T 0.02 NG/ML 0.00 - 0.10 40 Laboratory test finding 01/03/2021 [facility] [address] [place] [address] [phone] Troponin T 0.02 NG/ML 0.00 - 0.10 41 Pro-BNP 6929 pg/mL High 0 - 125 Laboratory test finding 01/03/2021 [facility] [address] [place] [address] [phone] Magnesium Serum 1.9 mg/dL 1.7 - 2.2 42 TSH Highly Sensitive 3.56 uIU/mL 0.47 - 5.01 T4 - Free 1.37 ng/dL 0.93 - 1.70 Comprehensive Metabolic Panel 01/03/2021 [facility] [address] [place] [address] [phone] Comprehensive Metabo (SEE NOTE) 43 Sodium 143 mEq/L 134 - 153 Potassium [...] >60 mL/min Afr Amer GFR >60 mL/min 44 CBC W/Automated Diff 01/03/[address] [address] [phone] CBC W/Automated Diff (SEE NOTE) 45 WBC 6.3 10^3/uL 4.2 - 11.0 RBC [...] Lymph 8.7 % Low 25.0 - 40.0 Deuel 6.6 % 3.0 - 8.0 Eos 0.9 % 0.0 - 7.0 Baso 0.3 % 0.0 - 2.0 %Ig 0.5 % High 0.0 - 0.0 %NRBC 0.0 % 0.0 - 0.0 #Neut 5.25 10^3/uL 2.00 - 6.90 #Lymph 0.55 10^3/uL Low 0.60 - 3.40 #Deuel 0.42 10^3/uL 0.00 - 0.90 #Eos 0.06 10^3/uL 0.00 - 0.70 #Baso 0.02 10^3/uL 0.00 - 0.20 #Ig 0.03 10^3/uL 0.00 - 0.10 #NRBC 0.00 10^3/uL 0.00 - 0.00 Manual Diff NOT INDICATED RBC Morph NOT INDICATED Laboratory test finding 01/03/2021 [facility] [address] [place] [address] [phone] Troponin T 0.02 NG/ML 0.00 - 0.10 46 Laboratory test finding 01/03/2021 [facility] [address] [place] [address] [phone] Troponin T 0.02 NG/ML 0.00 - 0.10 47 Laboratory test finding 12/12/2020 [facility] [address] [place] [phone] [phone] Magnesium Serum 2.1 mg/dL 1.7 - 2.2 Pro-BNP 7997 pg/mL High 0 - 125 Comprehensive Metabolic Panel 12/12/2020 [facility] [address] [place] [phone] [phone] Comprehensive Metabo (SEE NOTE) 48 Sodium 142 mEq/L 134 - 153 Potassium [...] 59 mL/min Afr Amer GFR >60 mL/min 49 Cve Panel 12/12/[address] [address] [phone] Cve Panel (SEE NOTE) 50 Cholesterol 108 mg/dL Low 131 - 200 Triglycerides 52 mg/dL 35 - 160 HDL 40 mg/dL 29 - 86 LDL 68 mg/dL 65 - 175 Risk Factor 2.7 Low 3.4 - 4.9 LDL/HDL 1.70 1.00 - 3.55 51 CBC W/Automated Diff 12/12/[address] [address] [phone] CBC W/Automated Diff (SEE NOTE) 52 WBC 7.0 10^3/uL 4.2 - 11.0 RBC [...] Lymph 7.8 % Low 25.0 - 40.0 Deuel 7.1 % 3.0 - 8.0 Eos 0.7 % 0.0 - 7.0 Baso 0.3 % 0.0 - 2.0 %Ig 0.4 % High 0.0 - 0.0 %NRBC 0.0 % 0.0 - 0.0 #Neut 5.88 10^3/uL 2.00 - 6.90 #Lymph 0.55 10^3/uL Low 0.60 - 3.40 #Deuel 0.50 10^3/uL 0.00 - 0.90 #Eos 0.05 10^3/uL 0.00 - 0.70 #Baso 0.02 10^3/uL 0.00 - 0.20 #Ig 0.03 10^3/uL 0.00 - 0.10 #NRBC 0.00 10^3/uL 0.00 - 0.00 Manual Diff NOT INDICATED RBC Morph NOT INDICATED Urinalysis 11/22/[address] [address] [phone] Urinalysis (SEE NOTE) 53, 54 Source R Color yellow Normal: Yellow Clarity clear Normal: Clear Spec [place] 1.015 1.001 - 1.030 pH 5 5 - 9 Glucose NORM Normal: Negative Bilirubin NEG Normal: Negative Ketone NEG Normal: Negative Protein NEG Normal: Negative Nitrite NEG Normal: Negative Blood NEG Normal: Negative Leuk Est NEG Normal: Negative Urobilinogen NOR less than 1.0 mg/dL Microscopic Not Indicate CBC W/Automated Diff 11/22/[address] [address] [phone] CBC W/Automated Diff (SEE NOTE) 55 WBC 6.7 10^3/uL 4.2 - 11.0 RBC [...] Lymph 7.2 % Low 25.0 - 40.0 Deuel 5.8 % 3.0 - 8.0 Eos 0.7 % 0.0 - 7.0 Baso 0.1 % 0.0 - 2.0 %Ig 0.4 % High 0.0 - 0.0 %NRBC 0.0 % 0.0 - 0.0 #Neut 5.73 10^3/uL 2.00 - 6.90 #Lymph 0.48 10^3/uL Low 0.60 - 3.40 #Deuel 0.39 10^3/uL 0.00 - 0.90 #Eos 0.05 10^3/uL 0.00 - 0.70 #Baso 0.01 10^3/uL 0.00 - 0.20 #Ig 0.03 10^3/uL 0.00 - 0.10 #NRBC 0.00 10^3/uL 0.00 - 0.00 Manual Diff NOT INDICATED RBC Morph NOT INDICATED Laboratory test finding 11/22/2020 [facility] [address] [place] [address] [phone] Hgba1c 5.2 % 4.4 - 6.1 56 Iron 42 g/dL 42 - 135 Magnesium Serum 2.2 mg/dL 1.7 - 2.2 Comprehensive Metabolic Panel 11/22/2020 [facility] [address] [place] [address] [phone] Comprehensive Metabo (SEE NOTE) 57 Sodium 142 mEq/L 134 - 153 Potassium [...] 46 mL/min Afr Amer GFR 56 mL/min 58 Cve Panel 11/22/[address] [address] [phone] Cve Panel (SEE NOTE) 59 Cholesterol 109 mg/dL Low 131 - 200 Triglycerides 45 mg/dL 35 - 160 HDL 45 mg/dL 29 - 86 LDL 66 mg/dL 65 - 175 Risk Factor 2.4 Low 3.4 - 4.9 LDL/HDL 1.47 1.00 - 3.55 60 Laboratory test finding 11/22/[address] [address] [phone] TSH Highly Sensitive 3.34 uIU/mL 0.47 - 5.0 1 Pro-BNP 4405 pg/mL High 0 - 125 1 COMPLETE BLOOD COUNT 2 COMPREHENSIVE METABOLIC PANE L 3 Male GFR Interprentation 20-49 yrs >60 mL/min Normal 50-59 yrs >56 mL/min Normal 60-69 yrs >49 mL/min Normal 70-79yrs >42 mL/min Normal 80 and above >35 mL/min Normal Female GFR Interpretation 20-39 yrs >60 mL/min Normal 40-49 yrs >58 mL/min Normal 50-59 yrs >51 mL/min Normal 60-69 yrs >45 mL/min Normal 70-79 yrs >39 mL/min Normal 80 and above >32 mL/min Normal 4 COMPLETE BLOOD COUNT 5 COMPREHENSIVE METABOLIC PANE L 6 Male GFR Interprentation 20-49 yrs >60 mL/min Normal 50-59 yrs >56 mL/min Normal 60-69 yrs >49 mL/min Normal 70-79yrs >42 mL/min Normal 80 and above >35 mL/min Normal Female GFR Interpretation 20-39 yrs >60 mL/min Normal 40-49 yrs >58 mL/min Normal 50-59 yrs >51 mL/min Normal 60-69 yrs >45 mL/min Normal 70-79 yrs >39 mL/min Normal 80 and above >32 mL/min Normal 7 TROPONIN T 0.1 ng/ml Recommended as the clinical th reshold value for Troponin T. 8 COMPLETE BLOOD COUNT 9 { SICKLE CELL (NORMAL: NONE SEEN ) 10 COMMENT: _FEW_LARGE_PLATELET S_OBSERVED. 01/21/21.0452.LBS. . . 11 COMPREHENSIVE METABOLIC PANE L 12 Male GFR Interprentation 20-49 yrs >60 mL/min Normal 50-59 yrs >56 mL/min Normal 60-69 yrs >49 mL/min Normal 70-79yrs >42 mL/min Normal 80 and above >35 mL/min Normal Female GFR Interpretation 20-39 yrs >60 mL/min Normal 40-49 yrs >58 mL/min Normal 50-59 yrs >51 mL/min Normal 60-69 yrs >45 mL/min Normal 70-79 yrs >39 mL/min Normal 80 and above >32 mL/min Normal 13 TROPONIN T 0.1 ng/ml Recommended as the clinical th reshold value for Troponin T. 14 TROPONIN T 0.1 ng/ml Recommended as the clinical th reshold value for Troponin T. 15 TROPONIN T 0.1 ng/ml Recommended as the clinical th reshold value for Troponin T. 16 TROPONIN T 0.1 ng/ml Recommended as the clinical th reshold value for Troponin T. 17 *FOR MEDICAL PURPOSES ONLY* 18 COMPLETE BLOOD COUNT 19 TROPONIN T 0.1 ng/ml Recommended as the clinical th reshold value for Troponin T. 20 COMPREHENSIVE METABOLIC PANE L 21 Male GFR Interprentation 20-49 yrs >60 mL/min Normal 50-59 yrs >56 mL/min Normal 60-69 yrs >49 mL/min Normal 70-79yrs >42 mL/min Normal 80 and above >35 mL/min Normal Female GFR Interpretation 20-39 yrs >60 mL/min Normal 40-49 yrs >58 mL/min Normal 50-59 yrs >51 mL/min Normal 60-69 yrs >45 mL/min Normal 70-79 yrs >39 mL/min Normal 80 and above >32 mL/min Normal 22 COMPLETE BLOOD COUNT 23 COMPREHENSIVE METABOLIC PANE L 24 Male GFR Interprentation 20-49 yrs >60 mL/min Normal 50-59 yrs >56 mL/min Normal 60-69 yrs >49 mL/min Normal 70-79yrs >42 mL/min Normal 80 and above >35 mL/min Normal Female GFR Interpretation 20-39 yrs >60 mL/min Normal 40-49 yrs >58 mL/min Normal 50-59 yrs >51 mL/min Normal 60-69 yrs >45 mL/min Normal 70-79 yrs >39 mL/min Normal 80 and above >32 mL/min Normal 25 TROPONIN T 0.1 ng/ml Recommended as the clinical th reshold value for Troponin T. 26 Is patient fasting? N 27 COMPREHENSIVE METABOLIC PANE L 28 Male GFR Interprentation 20-49 yrs >60 mL/min Normal 50-59 yrs >56 mL/min Normal 60-69 yrs >49 mL/min Normal 70-79yrs >42 mL/min Normal 80 and above >35 mL/min Normal Female GFR Interpretation 20-39 yrs >60 mL/min Normal 40-49 yrs >58 mL/min Normal 50-59 yrs >51 mL/min Normal 60-69 yrs >45 mL/min Normal 70-79 yrs >39 mL/min Normal 80 and above >32 mL/min Normal 29 COMPLETE BLOOD COUNT 30 COMPREHENSIVE METABOLIC PANE L 31 Male GFR Interprentation 20-49 yrs >60 mL/min Normal 50-59 yrs >56 mL/min Normal 60-69 yrs >49 mL/min Normal 70-79yrs >42 mL/min Normal 80 and above >35 mL/min Normal Female GFR Interpretation 20-39 yrs >60 mL/min Normal 40-49 yrs >58 mL/min Normal 50-59 yrs >51 mL/min Normal 60-69 yrs >45 mL/min Normal 70-79 yrs >39 mL/min Normal 80 and above >32 mL/min Normal 32 COMPLETE BLOOD COUNT 33 COMPLETE BLOOD COUNT 34 COMPREHENSIVE METABOLIC PANE L 35 Male GFR Interprentation 20-49 yrs >60 mL/min Normal 50-59 yrs >56 mL/min Normal 60-69 yrs >49 mL/min Normal 70-79yrs >42 mL/min Normal 80 and above >35 mL/min Normal Female GFR Interpretation 20-39 yrs >60 mL/min Normal 40-49 yrs >58 mL/min Normal 50-59 yrs >51 mL/min Normal 60-69 yrs >45 mL/min Normal 70-79 yrs >39 mL/min Normal 80 and above >32 mL/min Normal 36 TROPONIN T 0.1 ng/ml Recommended as the clinical th reshold value for Troponin T. 37 COMPLETE BLOOD COUNT 38 COMPREHENSIVE METABOLIC PANE L 39 Male GFR Interprentation 20-49 yrs >60 mL/min Normal 50-59 yrs >56 mL/min Normal 60-69 yrs >49 mL/min Normal 70-79yrs >42 mL/min Normal 80 and above >35 mL/min Normal Female GFR Interpretation 20-39 yrs >60 mL/min Normal 40-49 yrs >58 mL/min Normal 50-59 yrs >51 mL/min Normal 60-69 yrs >45 mL/min Normal 70-79 yrs >39 mL/min Normal 80 and above >32 mL/min Normal 40 TROPONIN T 0.1 ng/ml Recommended as the clinical th reshold value for Troponin T. 41 TROPONIN T 0.1 ng/ml Recommended as the clinical th reshold value for Troponin T. 42 Can run on todays blood 43 COMPREHENSIVE METABOLIC PANE L 44 Male GFR Interprentation 20-49 yrs >60 mL/min Normal 50-59 yrs >56 mL/min Normal 60-69 yrs >49 mL/min Normal 70-79yrs >42 mL/min Normal 80 and above >35 mL/min Normal Female GFR Interpretation 20-39 yrs >60 mL/min Normal 40-49 yrs >58 mL/min Normal 50-59 yrs >51 mL/min Normal 60-69 yrs >45 mL/min Normal 70-79 yrs >39 mL/min Normal 80 and above >32 mL/min Normal 45 COMPLETE BLOOD COUNT 46 TROPONIN T 0.1 ng/ml Recommended as the clinical th reshold value for Troponin T. 47 TROPONIN T 0.1 ng/ml Recommended as [...] 80 and above >32 mL/min Normal 50 LIPID PANEL 51 CVE RISK CHOL/HDL LDL/HDL MEN: 1/2 AVERAGE 3.43 1.00 AVERAGE 4.97 3.55 2X AVERAGE 9.55 6.25 3X AVERAGE 23.99 7.99 WOMEN: 1/2 AVERAGE 3.27 1.47 AVERAGE 4.44 3.22 2X AVERAGE 7.05 5.03 3X AVERAGE 11.04 6.14 52 COMPLETE BLOOD COUNT 53 {SOURCE: Random Void~NURSE COLLECTED? N 54 URINALYSIS 55 COMPLETE BLOOD COUNT 56 {A1] {HB] 57 COMPREHENSIVE METABOLIC PANE L 58 Male GFR Interprentation 20-49 yrs >60 mL/min Normal 50-59 yrs >56 mL/min Normal 60-69 yrs >49 mL/min Normal 70-79yrs >42 mL/min Normal 80 and above >35 mL/min Normal Female GFR Interpretation 20-39 yrs >60 mL/min Normal 40-49 yrs >58 mL/min Normal 50-59 yrs >51 mL/min Normal 60-69 yrs >45 mL/min Normal 70-79 yrs >39 mL/min Normal 80 and above >32 mL/min Normal 59 LIPID PANEL 60 CVE RISK CHOL/HDL LDL/HDL MEN: 1/2 AVERAGE 3.43 1.00 AVERAGE 4.97 3.55 2X AVERAGE 9.55 6.25 3X AVERAGE 23.99 7.99 WOMEN: 1/2 AVERAGE 3.27 1.47 AVERAGE 4.44 3.22 2X AVERAGE 7.05 5.03 3X AVERAGE 11.04 6.14 Procedures Date Code Description Status 12/24/2020 42364 Office/Outpatient Established Lo w MDM 20-29 Min Completed 12/23/2020 16205 Myocardial Perfusion,WM & Ef Com pleted 12/19/2020 23080 Office/Outpatient Established Mo d MDM 30-39 Min Completed 12/19/2020 90157 EKG Completed 12/17/2020 53295 Office/Outpatient Established Mo d MDM 30-39 Min Completed 12/12/2020 96630 Office/Outpatient Established Mo d MDM 30-39 Min Completed 11/26/2020 68493 Office/Outpatient Established Mo d MDM 30-39 Min Completed 11/26/2020 46293 Echocardiogram, Complete Complet ed 11/26/2020 85372 EKG Completed 11/22/2020 40195 Office/Outpatient Established Mo d MDM 30-39 Min Completed 10/22/2020 01768 Office/Outpatient Established Mo d MDM 30-39 Min Completed Encounters Type Date Location Provider Dx Diagnosis Office Visit 12/24/2020 11:30a [facility] Jon Elizondo M[facility] I11.9 Hypertensive heart disease without heart failure E78.5 Hyperlipidemia, unspecified I42.9 Cardiomyopathy, unspecified Office Visit 12/19/2020 10:15a [facility] Jon Elizondo M.D[facility] I11.9 Hypertensive heart disease without heart failure D50.9 Iron deficiency anemia, unsp ecified E78.5 Hyperlipidemia, unspecified I50.20 Unspecified systolic (conges tive) heart failure I49.49 Other premature depolarizati on Office Visit 12/17/2020 10:15a [facility] Jon Elizondo M.D.,[facility]. C. I11.9 Hypertensive heart disease without heart failure K59.00 Constipation, unspecified I50.20 Unspecified systolic (conges tive) heart failure I42.9 Cardiomyopathy, unspecified Office Visit 12/12/2020 10:00a [facility] Jon Elizondo M.D[facility]. [facility]. I11.9 Hypertensive heart disease without heart failure J43.9 Emphysema, unspecified Office Visit 11/26/2020 10:30a [facility] Jon Elizondo M.D[facility]. [facility]. I50.20 Unspecified systolic (congestive) heart failure I11.9 Hypertensive heart disease w [facility] heart failure J06.9 Acute upper respiratory infe ction, unspecified I42.9 Cardiomyopathy, unspecified I49.49 Other premature depolarizati on Office Visit 11/22/2020 10:00a [facility] Jon Elizondo M.D[facility]. [facility]. I50.20 Unspecified systolic (congestive) heart failure I11.9 Hypertensive heart disease w [facility] heart failure E78.5 Hyperlipidemia, unspecified Office Visit 10/22/2020 11:00a [facility] Jon Elizondo M.D.,[facility]. [facility]. I11.9 Hypertensive heart disease without heart failure E78.5 Hyperlipidemia, unspecified I50.20 Unspecified systolic (conges tive) heart failure I95.9 Hypotension, unspecified Assessments Date Code Description Provider 12/24/2020 I11.9 Hypertensive heart disease witho nc heart failure Jon [facility]izondo M[facility] 12/24/2020 E78.5 Hyperlipidemia, unspecified Samreen Elizondo M.D[facility]. 12/24/2020 I42.9 Cardiomyopathy, unspecified Samreen Elizondo M.D[facility]. 12/23/2020 I25.10 Atherosclerotic hear t disease of [place] coronary artery without angina pectoris Jon Elizondo M.D[facility] 12/19/2020 I11.9 Hypertensive heart disease witho ut heart failure Jon Elizondo M.D[facility] 12/19/2020 D50.9 Iron deficiency anemia, unspecif ied Jon Elizondo M.D[facility] 12/19/2020 E78.5 Hyperlipidemia, unspecified Samreen Elizondo M.D[facility]. 12/19/2020 I50.20 Unspecified systolic (congestive ) heart failure Jon [facility]izondo M.D[facility] 12/19/2020 I49.49 Other premature depolarization Sandra Elizondo M.D[facility]. 12/17/2020 I11.9 Hypertensive heart disease witho ut heart failure Jon Elizondo M.D[facility] 12/17/2020 K59.00 Constipation, unspecified Jon Elizondo M.D[facility] 12/17/2020 I50.20 Unspecified systolic (congestive ) heart failure Jon Elizondo M.D[facility] 12/17/2020 I42.9 Cardiomyopathy, unspecified Samreen Elizondo M.D[facility] 12/12/2020 I11.9 Hypertensive heart disease witho nc heart failure Jon Elizondo M.D[facility] 12/12/2020 J43.9 Emphysema, unspecified Jon silva M.D[facility] 11/26/2020 I50.20 Unspecified systolic (congestive ) heart failure Jon Elizondo M.D[facility] 11/26/2020 I11.9 Hypertensive heart disease witho nc heart failure Jon Elizondo M.D[facility] 11/26/2020 J06.9 Acute upper respiratory infectio n, unspectaylor Elizondo M.D[facility]. 11/26/2020 I42.9 Cardiomyopathy, unspecified Samreen Elizondo M.D[facility] 11/26/2020 I49.49 Other premature depolarization M sergey Elizondo M.D[facility]. 11/22/2020 I50.20 Unspecified systolic (congestive ) heart failure Jon Elizondo M.D[facility] 11/22/2020 I11.9 Hypertensive heart disease witho nc heart failure Jon Elizondo M.D[facility] 11/22/2020 E78.5 Hyperlipidemia, unspecified Samreen Elizondo M.D[facility] 10/22/2020 I11.9 Hypertensive heart disease witho nc heart failure Jon Elizondo M.D[facility]. 10/22/2020 E78.5 Hyperlipidemia, unspectaylor Elizondo M.D[facility]. 10/22/2020 I50.20 Unspecified systolic (congestive ) heart failure Jon Elizondo M.D[facility] 10/22/2020 I95.9 Hypotension, unspecified Jon greene M.D[facility] Plan of Treatment Future Appointment(s):* 02/10/2021 2:45 pm - Jon Elizondo M[facility] at [facility] Referrals Refer to Reason for Referral Status Appt Date Mick Ching MD Please eval. and treat this patient for positive nuclear stress test, he needs a cardiac cath. Thank you. Created [address] [place] [address] [phone]
--- OUTSIDE RECORDS SUMMARY | 2021-03-19 12:33 | CCD | Continuity of Care Document ---
Author Author Adebayo JAUREGUI M.D. 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 AUTM [phone] Jon Elizondo MD AUTM [phone] Problems Description No Information Available Social History [...] by mouth every day Karson Jauregui MD 1 Entresto 49-51mg Tablets 1 tab by mouth twice daily Karson Jauregui MD 04/22/2020 Metoprolol Tartrate 25mg Tablets 1 tab by mouth every day Karson Jauregui MD 04/22/2020 Atorvastatin Calcium 80mg Tablets 1 by mouth every day 90tabs Karson Jauregui MD 11/02/2019 Aspirin Adult 325mg Tablets one tab by mouth daily 90tabs Karson Jauregui MD 05/08/2019 Loratadine 10mg Capsules take 1 tab by mouth each day. 90caps Karson I. Jauregui, MD 08/18/[address] 1 by mouth every day 30evonne Jauregui MD 08/18/2018 Ferrous Sulfate 324(65Fe) mg Table ts DR take one tablet by mouth twice a day 60tabs Karson arce MD 08/18/2018 Magnesium 400mg Tablets 1 tab by mouth twice a day 60tabs Karson Jauregui MD 08/18/2018 Ipratropium [place]/Albuterol Sulfate 0.5-2.5(3)mg/3ML Solution Jon Elizondo MD Nitroglycerin 0.4mg/HR [place] 24HR Jon Elizondo MD Bumetanide 1mg Tablets 2 x daily ( Dr hall) Jon Elizondo MD [place] 2.5mg Tablets Jon Elizondo MD Multivitamin Adult Tablets 1 by mouth twice daily Unknown Brilinta 90mg Tablets 1 tab by mouth twice a day 180tabs Karson Jauregui MD [place] Extract 150mg Capsules 1 tab daily - for immune system prevent colds Unknown Vitamin C 500mg Tablets 1 by [...] H/L Range Note CBC W/Automated Diff 02/05/2021 [facility] CBC W/Automated Diff (SEE NOTE) [...] Lymph 10.4 % Low 25.0 - 40.0 [place] 8.0 % 3.0 - 8.0 Eos 2.5 % 0.0 - 7.0 Baso 0.3 % 0.0 - 2.0 %Ig 0.2 % High 0.0 - 0.0 %NRBC 0.0 % 0.0 - 0.0 #Neut 4.71 10^3/uL 2.00 - 6.90 #Lymph 0.62 10^3/uL 0.60 - 3.40 #[place] 0.48 10^3/uL 0.00 - 0.90 #Eos 0.15 10^3/uL 0.00 - 0.70 #Baso 0.02 10^3/uL 0.00 - 0.20 #Ig 0.01 10^3/uL 0.00 - 0.10 #NRBC 0.00 10^3/uL 0.00 - 0.00 Manual Diff NOT INDICATED RBC Morph NOT INDICATED Laboratory test finding 02/05/2021 [facility] Iron 45 g/dL 42 - 135 Magnesium Serum 1.9 mg/dL 1.7 - 2.2 Cve Panel 02/05/2021 [facility] Cve Panel (SEE NOTE) 2 Cholesterol 116 mg/dL Low 131 - 200 Triglycerides 71 mg/dL 35 - 160 HDL 48 mg/dL 29 - 86 LDL 62 mg/dL Low 65 - 175 Risk Factor 2.4 Low 3.4 - 4.9 LDL/HDL 1.29 1.00 - 3.55 3 Comprehensive Metabolic Panel 02/05/2021 [facility] Comprehensive Metabo (SEE NOTE) 4 Sodium 142 [...] >60 mL/min 5 Laboratory test finding 02/05/2021 [facility] TSH Highly Sensitive 10.10 uIU/mL High 0.47 [...] Normal Procedures Date Code Description Status 02/10/2021 31669 Office/Outpatient Established Lo w MDM 20-29 Min Completed Medical Devices Description No Information Available Encounters Type Date Location Provider Dx Diagnosis Office Visit 02/10/2021 9:00a [facility] Karson Jauregui MD I1 0 Essential (primary) hypertension E03.9 Hypothyroidism, unspecified Assessments Date Code Description Provider 02/10/2021 I10 Essential (primary) hypertension Karson Jauregui MD 02/10/2021 E03.9 Hypothyroidism, unspecified Timi Jauregui MD Plan of Treatment Future Appointment(s):* 05/13/2021 9:00 am - Karson Jauregui MD at [facility] 02/10/2021 - Karson Jauregui MD* I10 Essential (primary) hypertension* Follow up:* 3 months * E03.9 Hypothyroidism, unspecified * All * New Medication:* Levothyroxine Sodium 75 mcg - 1 tab by mouth every day Functional Status Description No Information Available Mental Status Description No Information Available Referrals Description No Information Available
--- OUTSIDE RECORDS SUMMARY | 2021-03-19 12:33 | CCD | Continuity of Care Document ---
Author Author Adebayo ARCHER P. C. Organization Unknown Address [address] [place] [id number] Phone [phone] Care Team Providers Care Senior Javascript Engineer Name Role Phone Sami Kalyan [facility] AUTM Mick Ching MD AUTM [phone] Asuncion Underwood MD AUTM [phone] DAVE ELIZONDO M.D. P.C. AUTM [phone] Social History Type Date Description Comments Sex [...] day 60tabs Dave Elizondo M.D[facility]. 2020 Ipratropium [place]/Albuterol Sulfate 0.5-2.5(3)mg/3ML Solution inhale 1 vial via [...] tablet by mouth daily Dave Elizondo M.D[facility] [place] Extract 150mg Capsules take one tablet by [...] Suspension 2 sprays in each nostril daily Daev reis M.D.,P.C. Magnesium Oxide 400mg Tablets 1 [...] H/L Range Note Laboratory test finding 02/05/2021 [facility] [address] [address] [phone] Iron 45 g/dL 42 - 135 Magnesium Serum 1.9 mg/dL 1.7 - 2.2 CBC W/Automated Diff 02/05/[address] [address] [phone] CBC W/Automated Diff (SEE NOTE) 1 WBC [...] Lymph 10.4 % Low 25.0 - 40.0 [place]ave 8.0 % 3.0 - 8.0 Eos 2.5 % 0.0 - 7.0 Baso 0.3 % 0.0 - 2.0 %Ig 0.2 % High 0.0 - 0.0 %NRBC 0.0 % 0.0 - 0.0 #Neut 4.71 10^3/uL 2.00 - 6.90 #Lymph 0.62 10^3/uL 0.60 - 3.40 #[place]ave 0.48 10^3/uL 0.00 - 0.90 #Eos 0.15 10^3/uL 0.00 - 0.70 #Baso 0.02 10^3/uL 0.00 - 0.20 #Ig 0.01 10^3/uL 0.00 - 0.10 #NRBC 0.00 10^3/uL 0.00 - 0.00 Manual Diff NOT INDICATED RBC Morph NOT INDICATED Laboratory test finding 02/05/2021 [address] [place] [address] [phone] TSH Highly Sensitive 10.10 uIU/mL High 0.47 - 5. 01 Vitamin B12 Serum 1363 pg/mL High 232 - 1245 Pro-BNP 9221 pg/mL High 0 - 125 Cve Panel 02/05/[address] [address] [phone] Cve Panel (SEE NOTE) 2 Cholesterol 116 mg/dL Low 131 - 200 Triglycerides 71 mg/dL 35 - 160 HDL 48 mg/dL 29 - 86 LDL 62 mg/dL Low 65 - 175 Risk Factor 2.4 Low 3.4 - 4.9 LDL/HDL 1.29 1.00 - 3.55 3 Comprehensive Metabolic Panel 02/05/2021 [facility] [address] [place] [phone] Comprehensive Metabo (SEE NOTE) 4 Sodium 142 [...] >60 mL/min 5 CBC W/Automated Diff 01/23/[address] [address] [phone] CBC W/Automated Diff (SEE NOTE) 6 WBC [...] Lymph 9.0 % Low 25.0 - 40.0 [place] 8.5 % High 3.0 - 8.0 Eos 3.8 % 0.0 - 7.0 Baso 0.2 % 0.0 - 2.0 %Ig 0.2 % High 0.0 - 0.0 %NRBC 0.0 % 0.0 - 0.0 #Neut 4.51 10^3/uL 2.00 - 6.90 #Lymph 0.52 10^3/uL Low 0.60 - 3.40 #[place] 0.49 10^3/uL 0.00 - 0.90 #Eos 0.22 10^3/uL 0.00 - 0.70 #Baso 0.01 10^3/uL 0.00 - 0.20 #Ig 0.01 10^3/uL 0.00 - 0.10 #NRBC 0.00 10^3/uL 0.00 - 0.00 Manual Diff NOT INDICATED RBC Morph NOT INDICATED Laboratory test finding 01/23/2021 [facility] [address] [place] [address] [phone] Magnesium Serum 1.8 mg/dL 1.7 - 2.2 Comprehensive Metabolic Panel 01/23/2021 [facility] [address] [place] [address] [phone] Comprehensive Metabo (SEE NOTE) 7 Sodium 139 [...] 49 mL/min 8 CBC W/Automated Diff 01/22/[address] [phone] CBC W/Automated Diff (SEE NOTE) 9 WBC [...] Lymph 13.0 % Low 25.0 - 40.0 [place] 8.7 % High 3.0 - 8.0 Eos 3.9 % 0.0 - 7.0 Baso 0.4 % 0.0 - 2.0 %Ig 0.4 % High 0.0 - 0.0 %NRBC 0.0 % 0.0 - 0.0 #Neut 3.81 10^3/uL 2.00 - 6.90 #Lymph 0.67 10^3/uL 0.60 - 3.40 #[place] 0.45 10^3/uL 0.00 - 0.90 #Eos 0.20 10^3/uL 0.00 - 0.70 #Baso 0.02 10^3/uL 0.00 - 0.20 #Ig 0.02 10^3/uL 0.00 - 0.10 #NRBC 0.00 10^3/uL 0.00 - 0.00 Manual Diff NOT INDICATED RBC Morph NOT INDICATED Laboratory test finding 01/22/2021 [facility] [address] [place] [phone] Pro-BNP 6385 pg/mL High 0 - 125 Magnesium Serum 1.8 mg/dL 1.7 - 2.2 Comprehensive Metabolic Panel 01/22/2021 [facility] [address] [place] [phone] Comprehensive Metabo (SEE NOTE) 10 Sodium 140 [...] 56 mL/min 11 Laboratory test finding 01/22/2021 [facility] [address] [place] [address] [phone] Troponin T 0.04 NG/ML 0.00 - 0.10 12 Laboratory test finding 01/21/2021 [facility] [address] [place] [address] [phone] Troponin T 0.07 NG/ML 0.00 - 0.10 13 Laboratory test finding 01/21/2021 [facility] [address] [place] [address] [phone] Iron 48 g/dL 42 - 135 Vitamin B12 Serum 1269 pg/mL High 232 - 1245 CBC W/Automated Diff 01/21/[address] [address] [phone] CBC W/Automated Diff (SEE NOTE) 14 WBC [...] Lymph 10.9 % Low 25.0 - 40.0 [place] 7.1 % 3.0 - 8.0 Eos 2.2 % 0.0 - 7.0 Baso 0.5 % 0.0 - 2.0 %Ig 0.2 % High 0.0 - 0.0 %NRBC 0.0 % 0.0 - 0.0 #Neut 4.37 10^3/uL 2.00 - 6.90 #Lymph 0.60 10^3/uL 0.60 - 3.40 #[place] 0.39 10^3/uL 0.00 - 0.90 #Eos 0.12 [...] Normal: Normal 16 Laboratory test finding 01/21/[address] [address] [phone] Magnesium Serum 2.0 mg/dL 1.7 - 2.2 Comprehensive Metabolic Panel 01/21/2021 [facility] [address] [place] [phone] Comprehensive Metabo (SEE NOTE) 17 Sodium 140 [...] 18 Laboratory test finding [facility] [address] [place] [address] [phone] Troponin T 0.06 NG/ML 0.00 - 0.10 19 Laboratory test finding 01/21/2021 [facility] [address] [place] [address] [phone] Troponin T 0.05 NG/ML 0.00 - 0.10 20 Laboratory test finding 01/21/2021 [place] [address] [phone] Troponin T 0.05 NG/ML 0.00 - 0.10 21 Alcohol Ethyl Blood 01/20/[address] [address] [phone] Alcohol 70.0 mg/dL Alcohol % 0.07 % High 0.00 - 0.01 22 CBC W/Automated Diff 01/20/[address] [address] [phone] CBC W/Automated Diff (SEE NOTE) 23 WBC [...] Lymph 14.2 % Low 25.0 - 40.0 [place] 7.7 % 3.0 - 8.0 Eos 3.2 % 0.0 - 7.0 Baso 0.3 % 0.0 - 2.0 %Ig 0.3 % High 0.0 - 0.0 %NRBC 0.0 % 0.0 - 0.0 #Neut 4.66 10^3/uL 2.00 - 6.90 #Lymph 0.89 10^3/uL 0.60 - 3.40 #[place] 0.48 10^3/uL 0.00 - 0.90 #Eos 0.20 10^3/uL 0.00 - 0.70 #Baso 0.02 10^3/uL 0.00 - 0.20 #Ig 0.02 10^3/uL 0.00 - 0.10 #NRBC 0.00 10^3/uL 0.00 - 0.00 Manual Diff NOT INDICATED RBC Morph NOT INDICATED Laboratory test finding 01/20/2021 [facility] [address] [place] [phone] Troponin T 0.03 NG/ML 0.00 - 0.10 24 Comprehensive Metabolic Panel 01/20/2021 [facility] [address] [place] [phone] Comprehensive Metabo (SEE NOTE) 25 Sodium 140 [...] >60 mL/min 26 Laboratory test finding 01/20/[address] [phone] Pro-BNP 6632 pg/mL High 0 - 125 CBC W/Automated Diff 01/08/[address] [address] [phone] CBC W/Automated Diff (SEE NOTE) 27 WBC [...] Lymph 9.1 % Low 25.0 - 40.0 [place] 10.7 % High 3.0 - 8.0 Eos 3.2 % 0.0 - 7.0 Baso 0.8 % 0.0 - 2.0 %Ig 0.2 % High 0.0 - 0.0 %NRBC 0.0 % 0.0 - 0.0 #Neut 3.84 10^3/uL 2.00 - 6.90 #Lymph 0.46 10^3/uL Low 0.60 - 3.40 #[place] 0.54 10^3/uL 0.00 - 0.90 #Eos 0.16 10^3/uL 0.00 - 0.70 #Baso 0.04 10^3/uL 0.00 - 0.20 #Ig 0.01 10^3/uL 0.00 - 0.10 #NRBC 0.00 10^3/uL 0.00 - 0.00 Manual Diff NOT INDICATED RBC Morph NOT INDICATED Comprehensive Metabolic Panel 01/08/2021 [facility] [address] [phone] Comprehensive Metabo (SEE NOTE) 28 Sodium 139 [...] >60 mL/min 29 CBC W/Automated Diff 01/07/[address] [address] [phone] CBC W/Automated Diff (SEE NOTE) 30, 31 [...] Lymph 10.9 % Low 25.0 - 40.0 [place] 9.1 % High 3.0 - 8.0 Eos 3.4 % 0.0 - 7.0 Baso 0.4 % 0.0 - 2.0 %Ig 0.4 % High 0.0 - 0.0 %NRBC 0.0 % 0.0 - 0.0 #Neut 3.77 10^3/uL 2.00 - 6.90 #Lymph 0.54 10^3/uL Low 0.60 - 3.40 #[place] 0.45 10^3/uL 0.00 - 0.90 #Eos 0.17 10^3/uL 0.00 - 0.70 #Baso 0.02 10^3/uL 0.00 - 0.20 #Ig 0.02 10^3/uL 0.00 - 0.10 #NRBC 0.00 10^3/uL 0.00 - 0.00 Manual Diff NOT INDICATED RBC Morph NOT INDICATED Laboratory test finding 01/07/2021 [facility] [address] [place] [address] [phone] Troponin T 0.02 NG/ML 0.00 - 0.10 32 Comprehensive Metabolic Panel 01/07/2021 [facility] [address] [place] [address] [phone] Comprehensive Metabo (SEE NOTE) 33 Sodium 139 [...] >60 mL/min 34 CBC W/Automated Diff 01/06/[address] [address] [phone] CBC W/Automated Diff (SEE NOTE) 35 WBC [...] Lymph 10.5 % Low 25.0 - 40.0 [place] 8.4 % High 3.0 - 8.0 Eos 2.3 % 0.0 - 7.0 Baso 0.3 % 0.0 - 2.0 %Ig 0.3 % High 0.0 - 0.0 %NRBC 0.0 % 0.0 - 0.0 #Neut 4.75 10^3/uL 2.00 - 6.90 #Lymph 0.64 10^3/uL 0.60 - 3.40 #[place] 0.51 10^3/uL 0.00 - 0.90 #Eos 0.14 10^3/uL 0.00 - 0.70 #Baso 0.02 10^3/uL 0.00 - 0.20 #Ig 0.02 10^3/uL 0.00 - 0.10 #NRBC 0.00 10^3/uL 0.00 - 0.00 Manual Diff NOT INDICATED RBC Morph NOT INDICATED Comprehensive Metabolic Panel 01/06/2021 [facility] [address] [place] [phone] Comprehensive Metabo (SEE NOTE) 36 Sodium 141 [...] >60 mL/min 37 Laboratory test finding 01/06/2021 [facility] [address] [place] [phone] [phone] Iron 40 g/dL Low 42 - 135 Laboratory test finding 01/05/2021 [facility] [address] [place] [address] [phone] Magnesium Serum 1.8 mg/dL 1.7 - 2.2 CBC W/Automated Diff 01/05/[address] [address] [phone] CBC W/Automated Diff (SEE NOTE) 38 WBC [...] Lymph 11.6 % Low 25.0 - 40.0 [place] 8.5 % High 3.0 - 8.0 Eos 1.7 % 0.0 - 7.0 Baso 0.6 % 0.0 - 2.0 %Ig 0.4 % High 0.0 - 0.0 %NRBC 0.0 % 0.0 - 0.0 #Neut 4.21 10^3/uL 2.00 - 6.90 #Lymph 0.63 10^3/uL 0.60 - 3.40 #[place] 0.46 10^3/uL 0.00 - 0.90 #Eos 0.09 10^3/uL 0.00 - 0.70 #Baso 0.03 10^3/uL 0.00 - 0.20 #Ig 0.02 10^3/uL 0.00 - 0.10 #NRBC 0.00 10^3/uL 0.00 - 0.00 Manual Diff NOT INDICATED RBC Morph NOT INDICATED Comprehensive Metabolic Panel 01/05/2021 [facility] [address] [place] [address] [phone] Comprehensive Metabo (SEE NOTE) 39 Sodium 141 [...] >60 mL/min 40 Laboratory test finding 01/04/2021 [facility] [address] [place], [place] [phone] Potassium 4.1 mEq/L 3.6 - 5.0 Laboratory test finding 01/04/2021 [facility] [address] [place] [address] [phone] Troponin T 0.02 NG/ML 0.00 - 0.10 41 Comprehensive Metabolic Panel 01/04/2021 [facility] [address] [place] [address] [phone] Comprehensive Metabo (SEE NOTE) 42 Sodium 142 [...] >60 mL/min 43 CBC W/Automated Diff 01/04/[address] [address] [phone] CBC W/Automated Diff (SEE NOTE) 44 WBC [...] Lymph 12.8 % Low 25.0 - 40.0 Mohave 8.0 % 3.0 - 8.0 Eos 2.1 % 0.0 - 7.0 Baso 0.3 % 0.0 - 2.0 %Ig 0.3 % High 0.0 - 0.0 %NRBC 0.0 % 0.0 - 0.0 #Neut 4.47 10^3/uL 2.00 - 6.90 #Lymph 0.75 10^3/uL 0.60 - 3.40 #[place] 0.47 10^3/uL 0.00 - 0.90 #Eos 0.12 10^3/uL 0.00 - 0.70 #Baso 0.02 10^3/uL 0.00 - 0.20 #Ig 0.02 10^3/uL 0.00 - 0.10 #NRBC 0.00 10^3/uL 0.00 - 0.00 Manual Diff NOT INDICATED RBC Morph NOT INDICATED Laboratory test finding 01/04/[address] [address] [phone] Magnesium Serum 1.8 mg/dL 1.7 - 2.2 Iron 41 g/dL Low 42 - 135 Laboratory test finding 01/04/[address] [address] [phone] Troponin T 0.02 NG/ML 0.00 - 0.10 45 Laboratory test finding 01/03/2021 [facility] [address] [place] [address] [phone] Magnesium Serum 1.9 mg/dL 1.7 - 2.2 46 TSH Highly Sensitive 3.56 uIU/mL 0.47 - 5.01 T4 - Free 1.37 ng/dL 0.93 - 1.70 Laboratory test finding 01/03/2021 [facility] [address] [place] [address] [phone] Troponin T 0.02 NG/ML 0.00 - 0.10 47 Comprehensive Metabolic Panel 01/03/2021 [facility] [address] [place] [phone] Comprehensive Metabo (SEE NOTE) 48 Sodium 143 [...] >60 mL/min 49 Laboratory test finding 01/03/2021 [facility] [address] [place] [phone] Troponin T 0.02 NG/ML 0.00 - 0.10 50 Pro-BNP 6929 pg/mL High 0 - 125 CBC W/Automated Diff 01/03/[address] [address] [phone] CBC W/Automated Diff (SEE NOTE) 51 WBC [...] Lymph 8.7 % Low 25.0 - 40.0 Mohave 6.6 % 3.0 - 8.0 Eos 0.9 % 0.0 - 7.0 Baso 0.3 % 0.0 - 2.0 %Ig 0.5 % High 0.0 - 0.0 %NRBC 0.0 % 0.0 - 0.0 #Neut 5.25 10^3/uL 2.00 - 6.90 #Lymph 0.55 10^3/uL Low 0.60 - 3.40 #Mohave 0.42 10^3/uL 0.00 - 0.90 #Eos 0.06 10^3/uL 0.00 - 0.70 #Baso 0.02 10^3/uL 0.00 - 0.20 #Ig 0.03 10^3/uL 0.00 - 0.10 #NRBC 0.00 10^3/uL 0.00 - 0.00 Manual Diff NOT INDICATED RBC Morph NOT INDICATED Laboratory test finding 01/03/[address] [address] [phone] Troponin T 0.02 NG/ML 0.00 - 0.10 52 Laboratory test finding 12/12/[address] [address] [phone] Magnesium Serum 2.1 mg/dL 1.7 - 2.2 Pro-BNP 7997 pg/mL High 0 - 125 Comprehensive Metabolic Panel 12/12/[address] [facility] [address] [phone] Comprehensive Metabo (SEE NOTE) 53 Sodium 142 [...] GFR >60 mL/min 54 Cve Panel 12/12/[address] [address] [phone] Cve Panel (SEE NOTE) 55 Cholesterol 108 mg/dL Low 131 - 200 Triglycerides 52 mg/dL 35 - 160 HDL 40 mg/dL 29 - 86 LDL 68 mg/dL 65 - 175 Risk Factor 2.7 Low 3.4 - 4.9 LDL/HDL 1.70 1.00 - 3.55 56 CBC W/Automated Diff 12/12/[address] [address] [phone] CBC W/Automated Diff (SEE NOTE) 57 WBC [...] Lymph 7.8 % Low 25.0 - 40.0 [place] 7.1 % 3.0 - 8.0 Eos 0.7 % 0.0 - 7.0 Baso 0.3 % 0.0 - 2.0 %Ig 0.4 % High 0.0 - 0.0 %NRBC 0.0 % 0.0 - 0.0 #Neut 5.88 10^3/uL 2.00 - 6.90 #Lymph 0.55 10^3/uL Low 0.60 - 3.40 #[place]ave 0.50 10^3/uL 0.00 - 0.90 #Eos 0.05 10^3/uL 0.00 - 0.70 #Baso 0.02 10^3/uL 0.00 - 0.20 #Ig 0.03 10^3/uL 0.00 - 0.10 #NRBC 0.00 10^3/uL 0.00 - 0.00 Manual Diff NOT INDICATED RBC Morph NOT INDICATED Urinalysis 11/22/[address] [address] [phone] Urinalysis (SEE NOTE) 58, 59 Source R Color yellow Normal: Yellow Clarity clear Normal: Clear Spec [place] 1.015 1.001 - 1.030 pH 5 5 - 9 Glucose NORM Normal: Negative Bilirubin NEG Normal: Negative Ketone NEG Normal: Negative Protein NEG Normal: Negative Nitrite NEG Normal: Negative Blood NEG Normal: Negative Leuk Est NEG Normal: Negative Urobilinogen NOR less than 1.0 mg/dL Microscopic Not Indicate CBC W/Automated Diff 11/22/2020 [place] [phone] CBC W/Automated Diff (SEE NOTE) 60 WBC [...] Lymph 7.2 % Low 25.0 - 40.0 [place] 5.8 % 3.0 - 8.0 Eos 0.7 % 0.0 - 7.0 Baso 0.1 % 0.0 - 2.0 %Ig 0.4 % High 0.0 - 0.0 %NRBC 0.0 % 0.0 - 0.0 #Neut 5.73 10^3/uL 2.00 - 6.90 #Lymph 0.48 10^3/uL Low 0.60 - 3.40 #[place] 0.39 10^3/uL 0.00 - 0.90 #Eos 0.05 10^3/uL 0.00 - 0.70 #Baso 0.01 10^3/uL 0.00 - 0.20 #Ig 0.03 10^3/uL 0.00 - 0.10 #NRBC 0.00 10^3/uL 0.00 - 0.00 Manual Diff NOT INDICATED RBC Morph NOT INDICATED Laboratory test finding 11/22/2020 [facility] [address] [place] [address] [phone] Hgba1c 5.2 % 4.4 - 6.1 61 Iron 42 g/dL 42 - 135 Magnesium Serum 2.2 mg/dL 1.7 - 2.2 Comprehensive Metabolic Panel 11/22/2020 [facility] [address] [place] [address] [phone] Comprehensive Metabo (SEE NOTE) 62 Sodium 142 [...] GFR 56 mL/min 63 Cve Panel 11/22/[address] [address] [phone] Cve Panel (SEE NOTE) 64 Cholesterol 109 mg/dL Low 131 - 200 Triglycerides 45 mg/dL 35 - 160 HDL 45 mg/dL 29 - 86 LDL 66 mg/dL 65 - 175 Risk Factor 2.4 Low 3.4 - 4.9 LDL/HDL 1.47 1.00 - 3.55 65 Laboratory test finding 11/22/[address] [address] [phone] TSH Highly Sensitive 3.34 uIU/mL 0.47 - [...] 6.14 Procedures Date Code Description Status 12/24/2020 04360 Office/Outpatient Established Lo w MDM 20-29 Min Completed 12/23/2020 86364 Myocardial Perfusion,WM & Ef Com pleted 12/19/2020 06296 Office/Outpatient Established Mo d MDM 30-39 Min Completed 12/19/2020 00304 EKG Completed 12/17/2020 17965 Office/Outpatient Established Mo d MDM 30-39 Min Completed 12/12/2020 38269 Office/Outpatient Established Mo d MDM 30-39 Min Completed 11/26/2020 79122 Office/Outpatient Established Mo d MDM 30-39 Min Completed 11/26/2020 16729 Echocardiogram, Complete Complet ed 11/26/2020 09764 EKG Completed 11/22/2020 84883 Office/Outpatient Established Mo d MDM 30-39 Min Completed 10/22/2020 37142 Office/Outpatient Established Mo d MDM 30-39 Min Completed Encounters Type Date Location Provider Dx Diagnosis Office Visit 12/24/2020 11:30a [facility] Dave Elizondo M.D.,P. C. I11.9 Hypertensive heart disease without heart failure E78.5 Hyperlipidemia, unspecified I42.9 Cardiomyopathy, unspecified Office Visit 12/19/2020 10:15a [facility] Dave Elizondo M.D.,P. C. I11.9 Hypertensive heart disease without heart failure D50.9 Iron deficiency anemia, unsp ecified E78.5 Hyperlipidemia, unspecified I50.20 Unspecified systolic (conges tive) heart failure I49.49 Other premature depolarizati on Office Visit 12/17/2020 10:15a [facility] Dave Elizondo M.D.,P. C. I11.9 Hypertensive heart disease without heart failure K59.00 Constipation, unspecified I50.20 Unspecified systolic (conges tive) heart failure I42.9 Cardiomyopathy, unspecified Office Visit 12/12/2020 10:00a [facility] Dave Elizondo M.D[facility]. [facility]. I11.9 Hypertensive heart disease without heart failure J43.9 Emphysema, unspecified Office Visit 11/26/2020 10:30a [facility] Dave Elizondo M.D[facility]. I50.20 Unspecified systolic (congestive) heart failure I11.9 [facility] J06.9 Acute upper respiratory infe ction, unspecified I42.9 Cardiomyopathy, unspecified I49.49 Other premature depolarizati on Office Visit 11/22/2020 10:00a [facility] Dave Elizondo M.D[facility]. C. I50.20 Unspecified systolic (congestive) heart failure I11.9 [facility] E78.5 Hyperlipidemia, unspecified Office Visit 10/22/2020 11:00a [facility] Dave Elizondo M.D[facility]. [facility]. I11.9 Hypertensive heart disease without heart failure E78.5 Hyperlipidemia, unspecified I50.20 Unspecified systolic (conges tive) heart failure I95.9 Hypotension, unspecified Assessments Date Code Description Provider 12/24/2020 I11.9 Hypertensive heart disease witho ut heart failure Dave Elizondo M[facility] 12/24/2020 E78.5 Hyperlipidemia, unspecified Samreen Elizondo M.D[facility]. 12/24/2020 I42.9 Cardiomyopathy, unspecified Samreen Elizondo M.D[facility] 12/23/2020 I25.10 Atherosclerotic hear t disease of [place] coronary artery without angina pectoris Dave Elizondo M.D[facility] 12/19/2020 I11.9 Hypertensive heart disease witho in heart failure Dave Elizondo M.D[facility] 12/19/2020 D50.9 Iron deficiency anemia, unspecif ied Dave Elizondo M[facility] 12/19/2020 E78.5 Hyperlipidemia, unspecified Samreen Elizondo M.D[facility]. 12/19/2020 I50.20 Unspecified systolic (congestive ) heart failure Dave Elizondo M[facility] 12/19/2020 I49.49 Other premature depolarization Sandra Elizondo M.D[facility] 12/17/2020 I11.9 Hypertensive heart disease witho in heart failure Dave Elizondo [facility] 12/17/2020 K59.00 Constipation, salmaified Dave Elizondo [facility] 12/17/2020 I50.20 Unspecified systolic (congestive ) heart failure Dave [facility]izondo [facility] 12/17/2020 I42.9 Cardiomyopathy, unspecified Samreen Elizondo M[facility] 12/12/2020 I11.9 Hypertensive heart disease witho in heart failure Dave [facility]izondo [facility] 12/12/2020 J43.9 Emphysema, unspecified Dave silva [facility] 11/26/2020 I50.20 Unspecified systolic (congestive ) heart failure Dave [facility]izondo [facility] 11/26/2020 I11.9 Hypertensive heart disease witho in heart failure Dave [facility]ondo [facility] 11/26/2020 J06.9 Acute upper respiratory infectio n, unspecified Dave [facility]izondo [facility] 11/26/2020 I42.9 Cardiomyopathy, unspecified Samreen Elizondo M[facility] 11/26/2020 I49.49 Other premature depolarization M sergey Elizondo M[facility] 11/22/2020 I50.20 Unspecified systolic (congestive ) heart failure Dave Elizondo [facility] 11/22/2020 I11.9 Hypertensive heart disease witho in heart failure Dave Elizondo M[facility] 11/22/2020 E78.5 Hyperlipidemia, unspecified Samreen Elizondo M[facility] 10/22/2020 I11.9 Hypertensive heart disease witho in heart failure Dave Elizondo [facility] 10/22/2020 E78.5 Hyperlipidemia, fabrizio Elizondo M.D[facility]P.C. 10/22/2020 I50.20 Unspecified systolic (congestive ) heart failure Dave [facility]izondo [facility] 10/22/2020 I95.9 Hypotension, unspecified Dave greene M[facility] Plan of Treatment Future Appointment(s):* 02/10/2021 2:45 pm - Dave Elizondo [facility] at [facility] Referrals Refer to Dr Reason for Referral Status Appt Date Asuncion Underwood MD Please eval. and treat this patient for high creatinine, ENDY.. Thank you. Created [address] [place], [place] [id number] [phone] Mick Ching MD Please eval. and treat this patient for positive nuclear stress test, he needs a cardiac cath. Thank you. Created [address] [facility] [address] [place] [address] [phone]
--- OUTSIDE RECORDS SUMMARY | 2021-03-19 12:34 | CCD | Continuity of Care Document ---
Author Author Adebayo ARCHER P. C. Organization Unknown Address [address] [place] [id number] Phone [phone] Care Team Providers Care Client Liaison Name Role Phone Sami Kalyan [facility] AUTM Mick Ching MD AUTM [phone] JON ELIZONDO M.D. P.C. AUTM [phone] Social History Type Date Description Comments Sex Unknown Allergies and adverse reactions Active Allergies Criticality Reaction | Severity Comments Date Tolmetin Unable to assess criticality 03/28/2020 Medications Active Medications SIG Qnty Indications Ordering Provide r Date Wellbutrin SR 150mg Tablets ER 12H R 1 by mouth twice a day 60tarachele Elizondo M.D.,P.C. 2020 Ipratropium [place]/Albuterol Sulfate 0.5-2.5(3)mg/3ML Solution inhale 1 vial via [...] twice a day 180tabs Jon Elizondo M.D.,P.C. [place] Extract 150mg Capsules take one tablet by [...] Result H/L Range Note Laboratory test finding 01/22/[address] [address] [phone] Pro-BNP 6385 pg/mL High 0 - 125 Magnesium Serum 1.8 mg/dL 1.7 - 2.2 CBC W/Automated Diff 01/22/[address] [address] [phone] CBC W/Automated Diff (SEE NOTE) 1 WBC 5.2 10^3/uL 4.2 - 11.0 RBC [...] Lymph 13.0 % Low 25.0 - 40.0 Travis 8.7 % High 3.0 - 8.0 Eos 3.9 % 0.0 - 7.0 Baso 0.4 % 0.0 - 2.0 %Ig 0.4 % High 0.0 - 0.0 %NRBC 0.0 % 0.0 - 0.0 #Neut 3.81 10^3/uL 2.00 - 6.90 #Lymph 0.67 10^3/uL 0.60 - 3.40 #Travis 0.45 10^3/uL 0.00 - 0.90 #Eos 0.20 10^3/uL 0.00 - 0.70 #Baso 0.02 10^3/uL 0.00 - 0.20 #Ig 0.02 10^3/uL 0.00 - 0.10 #NRBC 0.00 10^3/uL 0.00 - 0.00 Manual Diff NOT INDICATED RBC Morph NOT INDICATED Laboratory test finding 01/22/2021 [facility] [address] [place] [address] [phone] Troponin T 0.04 NG/ML 0.00 - 0.10 2 Comprehensive Metabolic Panel 01/22/2021 [facility] [address] [place] [address] [phone] Comprehensive Metabo (SEE NOTE) 3 Sodium 140 mEq/L 134 - 153 Potassium [...] 46 mL/min Afr Amer GFR 56 mL/min 4 Laboratory test finding 01/21/2021 [facility] [address] [place] [address] [phone] Troponin T 0.05 NG/ML 0.00 - 0.10 5 Laboratory test finding 01/21/2021 [facility] [address] [place] [address] [phone] Troponin T 0.05 NG/ML 0.00 - 0.10 6 Laboratory test finding 01/21/2021 [facility] [address] [place] [address] [phone] Troponin T 0.06 NG/ML 0.00 - 0.10 7 Laboratory test finding 01/21/2021 [facility] [address] [place] [address] [phone] Troponin T 0.07 NG/ML 0.00 - 0.10 8 Comprehensive Metabolic Panel 01/21/2021 [facility] [address] [place] [address] [phone] Comprehensive Metabo (SEE NOTE) 9 Sodium 140 mEq/L 134 - 153 Potassium [...] 50 mL/min Afr Amer GFR >60 mL/min 10 Laboratory test finding 01/21/[address] [phone] Magnesium Serum 2.0 mg/dL 1.7 - 2.2 CBC W/Automated Diff 01/21/[address] [address] [phone] CBC W/Automated Diff (SEE NOTE) 11 WBC 5.5 10^3/uL 4.2 - 11.0 RBC [...] Lymph 10.9 % Low 25.0 - 40.0 Travis 7.1 % 3.0 - 8.0 Eos 2.2 % 0.0 - 7.0 Baso 0.5 % 0.0 - 2.0 %Ig 0.2 % High 0.0 - 0.0 %NRBC 0.0 % 0.0 - 0.0 #Neut 4.37 10^3/uL 2.00 - 6.90 #Lymph 0.60 10^3/uL 0.60 - 3.40 #Travis 0.39 10^3/uL 0.00 - 0.90 #Eos 0.12 10^3/uL 0.00 - 0.70 #Baso 0.03 10^3/uL 0.00 - 0.20 #Ig 0.01 10^3/uL 0.00 - 0.10 #NRBC 0.00 10^3/uL 0.00 - 0.00 Manual Diff NOT INDICATED RBC Morph SEE BELOW Aniso 1+ Abnormal Normal: None Seen Poik 1+ Abnormal Normal: None Seen Hypo 1+ Abnormal Normal: None Seen 12 Teardrop 1+ Abnormal Normal: None Seen Ovalocytes 1+ Abnormal Normal: None Seen PLT Est NORMAL Normal: Normal 13 Laboratory test finding 01/21/2021 [facility] [address] [place] [address] [phone] Iron 48 g/dL 42 - 135 Vitamin B12 Serum 1269 pg/mL High 232 - 1245 Laboratory test finding 01/20/2021 [facility] [address] [place] [address] [phone] Troponin T 0.03 NG/ML 0.00 - 0.10 14 Laboratory test finding 01/20/2021 [facility] [address] [place] [address] [phone] Pro-BNP 6632 pg/mL High 0 - 125 Comprehensive Metabolic Panel 01/20/2021 [facility] [address] [place] [address] [phone] Comprehensive Metabo (SEE NOTE) 15 Sodium 140 mEq/L 134 - 153 Potassium [...] 50 mL/min Afr Amer GFR >60 mL/min 16 CBC W/Automated Diff 01/20/[address] [address] [phone] CBC W/Automated Diff (SEE NOTE) 17 WBC 6.3 10^3/uL 4.2 - 11.0 RBC [...] Lymph 14.2 % Low 25.0 - 40.0 Travis 7.7 % 3.0 - 8.0 Eos 3.2 % 0.0 - 7.0 Baso 0.3 % 0.0 - 2.0 %Ig 0.3 % High 0.0 - 0.0 %NRBC 0.0 % 0.0 - 0.0 #Neut 4.66 10^3/uL 2.00 - 6.90 #Lymph 0.89 10^3/uL 0.60 - 3.40 #Travis 0.48 10^3/uL 0.00 - 0.90 #Eos 0.20 10^3/uL 0.00 - 0.70 #Baso 0.02 10^3/uL 0.00 - 0.20 #Ig 0.02 10^3/uL 0.00 - 0.10 #NRBC 0.00 10^3/uL 0.00 - 0.00 Manual Diff NOT INDICATED RBC Morph NOT INDICATED Alcohol Ethyl Blood 01/20/[address] [address] [phone] Alcohol 70.0 mg/dL Alcohol % 0.07 % High 0.00 - 0.01 18 CBC W/Automated Diff 01/08/[address] [phone] CBC W/Automated Diff (SEE NOTE) 19 WBC 5.1 10^3/uL 4.2 - 11.0 RBC [...] Lymph 9.1 % Low 25.0 - 40.0 Travis 10.7 % High 3.0 - 8.0 Eos 3.2 % 0.0 - 7.0 Baso 0.8 % 0.0 - 2.0 %Ig 0.2 % High 0.0 - 0.0 %NRBC 0.0 % 0.0 - 0.0 #Neut 3.84 10^3/uL 2.00 - 6.90 #Lymph 0.46 10^3/uL Low 0.60 - 3.40 #Travis 0.54 10^3/uL 0.00 - 0.90 #Eos 0.16 10^3/uL 0.00 - 0.70 #Baso 0.04 10^3/uL 0.00 - 0.20 #Ig 0.01 10^3/uL 0.00 - 0.10 #NRBC 0.00 10^3/uL 0.00 - 0.00 Manual Diff NOT INDICATED RBC Morph NOT INDICATED Comprehensive Metabolic Panel 01/08/2021 [facility] [address] [place] [phone] Comprehensive Metabo (SEE NOTE) 20 Sodium 139 mEq/L 134 - 153 Potassium [...] >60 mL/min Afr Amer GFR >60 mL/min 21 Laboratory test finding 01/07/2021 [facility] [address] [place], [place] [id number] [phone] Troponin T 0.02 NG/ML 0.00 - 0.10 22 Comprehensive Metabolic Panel 01/07/2021 [facility] [address] [place] [address] [phone] Comprehensive Metabo (SEE NOTE) 23, 24 Sodium 139 mEq/L 134 - 153 Potassium [...] >60 mL/min Afr Amer GFR >60 mL/min 25 CBC W/Automated Diff 01/07/[address] [address] [phone] CBC W/Automated Diff (SEE NOTE) 26 WBC 5.0 10^3/uL 4.2 - 11.0 RBC [...] Lymph 10.9 % Low 25.0 - 40.0 Travis 9.1 % High 3.0 - 8.0 Eos 3.4 % 0.0 - 7.0 Baso 0.4 % 0.0 - 2.0 %Ig 0.4 % High 0.0 - 0.0 %NRBC 0.0 % 0.0 - 0.0 #Neut 3.77 10^3/uL 2.00 - 6.90 #Lymph 0.54 10^3/uL Low 0.60 - 3.40 #Travis 0.45 10^3/uL 0.00 - 0.90 #Eos 0.17 10^3/uL 0.00 - 0.70 #Baso 0.02 10^3/uL 0.00 - 0.20 #Ig 0.02 10^3/uL 0.00 - 0.10 #NRBC 0.00 10^3/uL 0.00 - 0.00 Manual Diff NOT INDICATED RBC Morph NOT INDICATED CBC W/Automated Diff 01/06/[address] [address] [phone] CBC W/Automated Diff (SEE NOTE) 27 WBC 6.1 10^3/uL 4.2 - 11.0 RBC [...] Lymph 10.5 % Low 25.0 - 40.0 Travis 8.4 % High 3.0 - 8.0 Eos 2.3 % 0.0 - 7.0 Baso 0.3 % 0.0 - 2.0 %Ig 0.3 % High 0.0 - 0.0 %NRBC 0.0 % 0.0 - 0.0 #Neut 4.75 10^3/uL 2.00 - 6.90 #Lymph 0.64 10^3/uL 0.60 - 3.40 #Travis 0.51 10^3/uL 0.00 - 0.90 #Eos 0.14 10^3/uL 0.00 - 0.70 #Baso 0.02 10^3/uL 0.00 - 0.20 #Ig 0.02 10^3/uL 0.00 - 0.10 #NRBC 0.00 10^3/uL 0.00 - 0.00 Manual Diff NOT INDICATED RBC Morph NOT INDICATED Comprehensive Metabolic Panel 01/06/2021 [facility] [address] [place] [address] [phone] Comprehensive Metabo (SEE NOTE) 28 Sodium 141 mEq/L 134 - 153 Potassium [...] mL/min Afr Amer GFR >60 mL/min 29 Laboratory test finding 01/06/2021 [facility] [address] [place] [address] [phone] Iron 40 g/dL Low 42 - 135 Comprehensive Metabolic Panel 01/05/2021 [facility] [address] [place] [address] [phone] Comprehensive Metabo (SEE NOTE) 30 Sodium 141 [...] 54 mL/min Afr Amer GFR >60 mL/min 31 Laboratory test finding 01/05/[address] [address] [phone] Magnesium Serum 1.8 mg/dL 1.7 - 2.2 CBC W/Automated Diff 01/05/[address] [address] [phone] CBC W/Automated Diff (SEE NOTE) 32 WBC 5.4 10^3/uL 4.2 - 11.0 RBC [...] Lymph 11.6 % Low 25.0 - 40.0 Travis 8.5 % High 3.0 - 8.0 Eos 1.7 % 0.0 - 7.0 Baso 0.6 % 0.0 - 2.0 %Ig 0.4 % High 0.0 - 0.0 %NRBC 0.0 % 0.0 - 0.0 #Neut 4.21 10^3/uL 2.00 - 6.90 #Lymph 0.63 10^3/uL 0.60 - 3.40 #Travis 0.46 10^3/uL 0.00 - 0.90 #Eos 0.09 10^3/uL 0.00 - 0.70 #Baso 0.03 10^3/uL 0.00 - 0.20 #Ig 0.02 10^3/uL 0.00 - 0.10 #NRBC 0.00 10^3/uL 0.00 - 0.00 Manual Diff NOT INDICATED RBC Morph NOT INDICATED Laboratory test finding 01/04/2021 [facility] [address] [place] [address] [phone] Potassium 4.1 mEq/L 3.6 - 5.0 Laboratory test finding 01/04/2021 [facility] [address] [place], [place] [address] [phone] Troponin T 0.02 NG/ML 0.00 - 0.10 33 Laboratory test finding 01/04/2021 [facility] [address] [place], [place] [address] [phone] Magnesium Serum 1.8 mg/dL 1.7 - 2.2 Iron 41 g/dL Low 42 - 135 CBC W/Automated Diff 01/04/[address] [address] [phone] CBC W/Automated Diff (SEE NOTE) 34 WBC 5.9 10^3/uL 4.2 - 11.0 RBC [...] Lymph 12.8 % Low 25.0 - 40.0 Travis 8.0 % 3.0 - 8.0 Eos 2.1 % 0.0 - 7.0 Baso 0.3 % 0.0 - 2.0 %Ig 0.3 % High 0.0 - 0.0 %NRBC 0.0 % 0.0 - 0.0 #Neut 4.47 10^3/uL 2.00 - 6.90 #Lymph 0.75 10^3/uL 0.60 - 3.40 #Travis 0.47 10^3/uL 0.00 - 0.90 #Eos 0.12 10^3/uL 0.00 - 0.70 #Baso 0.02 10^3/uL 0.00 - 0.20 #Ig 0.02 10^3/uL 0.00 - 0.10 #NRBC 0.00 10^3/uL 0.00 - 0.00 Manual Diff NOT INDICATED RBC Morph NOT INDICATED Comprehensive Metabolic Panel 01/04/[address] [address] [phone] Comprehensive Metabo (SEE NOTE) 35 Sodium 142 mEq/L 134 - 153 Potassium [...] >60 mL/min Afr Amer GFR >60 mL/min 36 Laboratory test finding 01/04/2021 [place] [address] [phone] Troponin T 0.02 NG/ML 0.00 - 0.10 37 Laboratory test finding 01/03/2021 [place] [address] [phone] Troponin T 0.02 NG/ML 0.00 - 0.10 38 Laboratory test finding 01/03/2021 [place] [address] [phone] Troponin T 0.02 NG/ML 0.00 - 0.10 39 CBC W/Automated Diff 01/03/2021 [place] [address] [phone] CBC W/Automated Diff (SEE NOTE) 40 WBC 6.3 10^3/uL 4.2 - 11.0 RBC [...] Lymph 8.7 % Low 25.0 - 40.0 Travis 6.6 % 3.0 - 8.0 Eos 0.9 % 0.0 - 7.0 Baso 0.3 % 0.0 - 2.0 %Ig 0.5 % High 0.0 - 0.0 %NRBC 0.0 % 0.0 - 0.0 #Neut 5.25 10^3/uL 2.00 - 6.90 #Lymph 0.55 10^3/uL Low 0.60 - 3.40 #Travis 0.42 10^3/uL 0.00 - 0.90 #Eos 0.06 10^3/uL 0.00 - 0.70 #Baso 0.02 10^3/uL 0.00 - 0.20 #Ig 0.03 10^3/uL 0.00 - 0.10 #NRBC 0.00 10^3/uL 0.00 - 0.00 Manual Diff NOT INDICATED RBC Morph NOT INDICATED Laboratory test finding 01/03/2021 [facility] [address] [place] [address] [phone] Troponin T 0.02 NG/ML 0.00 - 0.10 41 Pro-BNP 6929 pg/mL High 0 - 125 Comprehensive Metabolic Panel 01/03/2021 [facility] [address] [place] [address] [phone] Comprehensive Metabo (SEE NOTE) 42 Sodium 143 mEq/L 134 - 153 Potassium [...] mL/min Afr Amer GFR >60 mL/min 43 Laboratory test finding 01/03/2021 [place] [address] [phone] Magnesium Serum 1.9 mg/dL 1.7 - 2.2 44 TSH Highly Sensitive 3.56 uIU/mL 0.47 - 5.01 T4 - Free 1.37 ng/dL 0.93 - 1.70 Laboratory test finding 12/12/[address] [address] [phone] Magnesium Serum 2.1 mg/dL 1.7 - 2.2 Pro-BNP 7997 pg/mL High 0 - 125 CBC W/Automated Diff 12/12/[address] [address] [phone] CBC W/Automated Diff (SEE NOTE) 45 WBC 7.0 10^3/uL 4.2 - 11.0 RBC [...] Lymph 7.8 % Low 25.0 - 40.0 Travis 7.1 % 3.0 - 8.0 Eos 0.7 % 0.0 - 7.0 Baso 0.3 % 0.0 - 2.0 %Ig 0.4 % High 0.0 - 0.0 %NRBC 0.0 % 0.0 - 0.0 #Neut 5.88 10^3/uL 2.00 - 6.90 #Lymph 0.55 10^3/uL Low 0.60 - 3.40 #Travis 0.50 10^3/uL 0.00 - 0.90 #Eos 0.05 10^3/uL 0.00 - 0.70 #Baso 0.02 10^3/uL 0.00 - 0.20 #Ig 0.03 10^3/uL 0.00 - 0.10 #NRBC 0.00 10^3/uL 0.00 - 0.00 Manual Diff NOT INDICATED RBC Morph NOT INDICATED Cve Panel 12/12/[address] [address] [phone] Cve Panel (SEE NOTE) 46 Cholesterol 108 mg/dL Low 131 - 200 Triglycerides 52 mg/dL 35 - 160 HDL 40 mg/dL 29 - 86 LDL 68 mg/dL 65 - 175 Risk Factor 2.7 Low 3.4 - 4.9 LDL/HDL 1.70 1.00 - 3.55 47 Comprehensive Metabolic Panel 12/12/2020 [facility] [address] [place] [phone] Comprehensive Metabo (SEE NOTE) 48 Sodium 142 [...] mL/min Afr Amer GFR >60 mL/min 49 Urinalysis 11/22/[address] [address] [phone] Urinalysis (SEE NOTE) 50, 51 Source R Color yellow Normal: Yellow Clarity clear Normal: Clear Spec [place] 1.015 1.001 - 1.030 pH 5 5 - 9 Glucose NORM Normal: Negative Bilirubin NEG Normal: Negative Ketone NEG Normal: Negative Protein NEG Normal: Negative Nitrite NEG Normal: Negative Blood NEG Normal: Negative Leuk Est NEG Normal: Negative Urobilinogen NOR less than 1.0 mg/dL Microscopic Not Indicate CBC W/Automated Diff 11/22/[address] [address] [phone] CBC W/Automated Diff (SEE NOTE) 52 WBC 6.7 10^3/uL 4.2 - 11.0 RBC [...] Lymph 7.2 % Low 25.0 - 40.0 Travis 5.8 % 3.0 - 8.0 Eos 0.7 % 0.0 - 7.0 Baso 0.1 % 0.0 - 2.0 %Ig 0.4 % High 0.0 - 0.0 %NRBC 0.0 % 0.0 - 0.0 #Neut 5.73 10^3/uL 2.00 - 6.90 #Lymph 0.48 10^3/uL Low 0.60 - 3.40 #Travis 0.39 10^3/uL 0.00 - 0.90 #Eos 0.05 10^3/uL 0.00 - 0.70 #Baso 0.01 10^3/uL 0.00 - 0.20 #Ig 0.03 10^3/uL 0.00 - 0.10 #NRBC 0.00 10^3/uL 0.00 - 0.00 Manual Diff NOT INDICATED RBC Morph NOT INDICATED Laboratory test finding 11/22/2020 [facility] [address] [place] [address] [id number] [phone] Hgba1c 5.2 % 4.4 - 6.1 53 Iron 42 g/dL 42 - 135 Magnesium Serum 2.2 mg/dL 1.7 - 2.2 Comprehensive Metabolic Panel 11/22/2020 [facility] [address] [place] [address] [phone] Comprehensive Metabo (SEE NOTE) 54 Sodium 142 mEq/L 134 - 153 Potassium [...] 46 mL/min Afr Amer GFR 56 mL/min 55 Cve Panel 11/22/[address] [address] [phone] Cve Panel (SEE NOTE) 56 Cholesterol 109 mg/dL Low 131 - 200 Triglycerides 45 mg/dL 35 - 160 HDL 45 mg/dL 29 - 86 LDL 66 mg/dL 65 - 175 Risk Factor 2.4 Low 3.4 - 4.9 LDL/HDL 1.47 1.00 - 3.55 57 Laboratory test finding 11/22/2020 [place] [address] [phone] TSH Highly Sensitive 3.34 uIU/mL 0.47 - 5.0 1 Pro-BNP 4405 pg/mL High 0 - 125 Urinalysis 07/24/2020 [place] [id number] [phone] Urinalysis (SEE NOTE) 58, 59 Source R Color yellow Normal: Yellow Clarity clear Normal: Clear Spec [place] 1.015 1.001 - 1.030 pH 5 5 - 9 Glucose NORM Normal: Negative Bilirubin NEG Normal: Negative Ketone NEG Normal: Negative Protein 30 Normal: Negative Nitrite NEG Normal: Negative Blood NEG Normal: Negative Leuk Est NEG Normal: Negative Urobilinogen NOR less than 1.0 mg/dL Microscopic See Below WBC None Seen Normal: None Seen RBC None Seen Normal: None Seen Mucous Trace Normal: None Seen Laboratory test finding 07/24/2020 [place] [address] [phone] PSA - Diagnostic 1.01 ng/mL 0.00 - 4.00 60 Cve Panel 07/24/2020 [place] [id number] [phone] Cve Panel (SEE NOTE) 61 Cholesterol 133 mg/dL 131 - 200 Triglycerides 82 mg/dL 35 - 160 HDL 55 mg/dL 29 - 86 LDL 72 mg/dL 65 - 175 Risk Factor 2.4 Low 3.4 - 4.9 LDL/HDL 1.31 1.00 - 3.55 62 Basic Metabolic Panel 07/24/2020 [place] [id number] [phone] Basic Metabolic Pane (SEE NOTE) 63 Sodium 139 mEq/L 134 - 153 Potassium 4.7 mEq/L 3.6 - 5.0 Chloride 104 mEq/L 98 - 107 Co2 23 mEq/L 22 - 30 Glucose 122 mg/dL High 70 - 99 BUN 39 mg/dL High 7 - 21 Creatinine 1.3 mg/dL 0.7 - 1.5 BUN/Creat 30 High 8 - 27 Calcium 9.8 mg/dL 8.4 - 10.2 Anion Gap 12.0 mmol/L 8.0 - 16.0 Age 65 yrs Afr Amer GFR >60 mL/min Non-Aa GFR 59 mL/min 64 1 COMPLETE BLOOD COUNT 2 TROPONIN T 0.1 ng/ml Recommended as the clinical th reshold value for Troponin T. 3 COMPREHENSIVE METABOLIC PANE L 4 Male GFR Interprentation 20-49 yrs >60 mL/min Normal 50-59 yrs >56 mL/min Normal 60-69 yrs >49 mL/min Normal 70-79yrs >42 mL/min Normal 80 and above >35 mL/min Normal Female GFR Interpretation 20-39 yrs >60 mL/min Normal 40-49 yrs >58 mL/min Normal 50-59 yrs >51 mL/min Normal 60-69 yrs >45 mL/min Normal 70-79 yrs >39 mL/min Normal 80 and above >32 mL/min Normal 5 TROPONIN T 0.1 ng/ml Recommended as the clinical th reshold value for Troponin T. 6 TROPONIN T 0.1 ng/ml Recommended as the clinical th reshold value for Troponin T. 7 TROPONIN T 0.1 ng/ml Recommended as the clinical th reshold value for Troponin T. 8 TROPONIN T 0.1 ng/ml Recommended as the clinical th reshold value for Troponin T. 9 COMPREHENSIVE METABOLIC PANE L 10 Male GFR Interprentation 20-49 yrs >60 mL/min Normal 50-59 yrs >56 mL/min Normal 60-69 yrs >49 mL/min Normal 70-79yrs >42 mL/min Normal 80 and above >35 mL/min Normal Female GFR Interpretation 20-39 yrs >60 mL/min Normal 40-49 yrs >58 mL/min Normal 50-59 yrs >51 mL/min Normal 60-69 yrs >45 mL/min Normal 70-79 yrs >39 mL/min Normal 80 and above >32 mL/min Normal 11 COMPLETE BLOOD COUNT 12 { SICKLE CELL (NORMAL: NONE SEEN ) 13 COMMENT: _FEW_LARGE_PLATELET S_OBSERVED. 01/21/21.0452.LBS. . . 14 TROPONIN T 0.1 ng/ml Recommended as the clinical th reshold value for Troponin T. 15 COMPREHENSIVE METABOLIC PANE L 16 Male GFR Interprentation 20-49 yrs >60 mL/min Normal 50-59 yrs >56 mL/min Normal 60-69 yrs >49 mL/min Normal 70-79yrs >42 mL/min Normal 80 and above >35 mL/min Normal Female GFR Interpretation 20-39 yrs >60 mL/min Normal 40-49 yrs >58 mL/min Normal 50-59 yrs >51 mL/min Normal 60-69 yrs >45 mL/min Normal 70-79 yrs >39 mL/min Normal 80 and above >32 mL/min Normal 17 COMPLETE BLOOD COUNT 18 *FOR MEDICAL PURPOSES ONLY* 19 COMPLETE BLOOD COUNT 20 COMPREHENSIVE METABOLIC PANE L 21 Male [...] 80 and above >32 mL/min Normal 22 TROPONIN T 0.1 ng/ml Recommended as the clinical th reshold value for Troponin T. 23 Is patient fasting? N 24 COMPREHENSIVE METABOLIC PANE L 25 Male GFR Interprentation 20-49 yrs >60 mL/min Normal 50-59 yrs >56 mL/min Normal 60-69 yrs >49 mL/min Normal 70-79yrs >42 mL/min Normal 80 and above >35 mL/min Normal Female GFR Interpretation 20-39 yrs >60 mL/min Normal 40-49 yrs >58 mL/min Normal 50-59 yrs >51 mL/min Normal 60-69 yrs >45 mL/min Normal 70-79 yrs >39 mL/min Normal 80 and above >32 mL/min Normal 26 COMPLETE BLOOD COUNT 27 COMPLETE BLOOD COUNT 28 COMPREHENSIVE METABOLIC [...] 80 and above >32 mL/min Normal 30 COMPREHENSIVE METABOLIC PANE L 31 Male [...] mL/min Normal 32 COMPLETE BLOOD COUNT 33 TROPONIN T 0.1 ng/ml Recommended as the clinical th reshold value for Troponin T. 34 COMPLETE BLOOD COUNT 35 COMPREHENSIVE METABOLIC PANE L 36 Male GFR Interprentation 20-49 yrs >60 mL/min Normal 50-59 yrs >56 mL/min Normal 60-69 yrs >49 mL/min Normal 70-79yrs >42 mL/min Normal 80 and above >35 mL/min Normal Female GFR Interpretation 20-39 yrs >60 mL/min Normal 40-49 yrs >58 mL/min Normal 50-59 yrs >51 mL/min Normal 60-69 yrs >45 mL/min Normal 70-79 yrs >39 mL/min Normal 80 and above >32 mL/min Normal 37 TROPONIN T 0.1 ng/ml Recommended as the clinical th reshold value for Troponin T. 38 TROPONIN T 0.1 ng/ml Recommended as the clinical th reshold value for Troponin T. 39 TROPONIN T 0.1 ng/ml Recommended as the clinical th reshold value for Troponin T. 40 COMPLETE BLOOD COUNT 41 TROPONIN T 0.1 ng/ml Recommended as [...] 80 and above >32 mL/min Normal 44 Can run on todays blood 45 COMPLETE BLOOD COUNT 46 LIPID PANEL 47 CVE RISK CHOL/HDL LDL/HDL MEN: 1/2 AVERAGE 3.43 1.00 AVERAGE 4.97 3.55 2X AVERAGE 9.55 6.25 3X AVERAGE 23.99 7.99 WOMEN: 1/2 AVERAGE 3.27 1.47 AVERAGE 4.44 3.22 2X AVERAGE 7.05 5.03 3X AVERAGE 11.04 6.14 48 COMPREHENSIVE METABOLIC PANE L 49 Male [...] 80 and above >32 mL/min Normal 50 {SOURCE: Random Void~NURSE COLLECTED? N 51 URINALYSIS 52 COMPLETE BLOOD COUNT 53 {A1] {HB] 54 COMPREHENSIVE METABOLIC PANE L 55 Male GFR Interprentation 20-49 yrs >60 mL/min Normal 50-59 yrs >56 mL/min Normal 60-69 yrs >49 mL/min Normal 70-79yrs >42 mL/min Normal 80 and above >35 mL/min Normal Female GFR Interpretation 20-39 yrs >60 mL/min Normal 40-49 yrs >58 mL/min Normal 50-59 yrs >51 mL/min Normal 60-69 yrs >45 mL/min Normal 70-79 yrs >39 mL/min Normal 80 and above >32 mL/min Normal 56 LIPID PANEL 57 CVE RISK CHOL/HDL LDL/HDL MEN: 1/2 AVERAGE 3.43 1.00 AVERAGE 4.97 3.55 2X AVERAGE 9.55 6.25 3X AVERAGE 23.99 7.99 WOMEN: 1/2 AVERAGE 3.27 1.47 AVERAGE 4.44 3.22 2X AVERAGE 7.05 5.03 3X AVERAGE 11.04 6.14 58 FASTING~.~.~<DG1.3.1>R31.21</DG1.3.1><DG1.3.1>R31.21</DG1.3.1><DG1.3.1>R31.21</D G1.3.1><DG1. 59 URINALYSIS 60 \\BLDo\\PSA INTERPRETATION\\BLD x\\ The PSA assay should not be used alone for a screening test or diagnosis for presence or absence of malignant disease. Predictions of disease recurrence should not be based solely on values obtained from serial patient serum values. The PSA result was determined by "[employer]", on the [employer]AR 6000. Values obtained with different assay methods or kits cannot be used interchangeably. 61 LIPID PANEL 62 CVE RISK CHOL/HDL LDL/HDL MEN: 1/2 AVERAGE 3.43 1.00 AVERAGE 4.97 3.55 2X AVERAGE 9.55 6.25 3X AVERAGE 23.99 7.99 WOMEN: 1/2 AVERAGE 3.27 1.47 AVERAGE 4.44 3.22 2X AVERAGE 7.05 5.03 3X AVERAGE 11.04 6.14 63 BASIC METABOLIC PANEL 64 Male GFR Interprentation 20-49 yrs >60 mL/min [...] mL/min Normal Procedures Date Code Description Status 12/24/2020 81423 Office/Outpatient Established Clarita w MDM 20-29 Min Completed 12/23/2020 48023 Myocardial Perfusion,WM & Ef Com pleted 12/19/2020 48977 Office/Outpatient Established Mo d MDM 30-39 Min Completed 12/19/2020 07336 EKG Completed 12/17/2020 34519 Office/Outpatient Established Mo d MDM 30-39 Min Completed 12/12/2020 53179 Office/Outpatient Established Mo d MDM 30-39 Min Completed 11/26/2020 33238 Office/Outpatient Established Mo d MDM 30-39 Min Completed 11/26/2020 06354 Echocardiogram, Complete Complet ed 11/26/2020 71866 EKG Completed 11/22/2020 92095 Office/Outpatient Established Mo d MDM 30-39 Min Completed 10/22/2020 75392 Office/Outpatient Established Mo d MDM 30-39 Min Completed Encounters Type Date Location Provider Dx Diagnosis Office Visit 12/24/2020 11:30a [facility] Jon Elizondo M[facility] I11.9 Hypertensive heart disease without heart failure E78.5 Hyperlipidemia, unspecified I42.9 Cardiomyopathy, unspecified Office Visit 12/19/2020 10:15a [facility] Jon Elizondo M.D.,[facility] I11.9 Hypertensive heart disease without heart failure D50.9 Iron deficiency anemia, unsp ecified E78.5 Hyperlipidemia, unspecified I50.20 Unspecified systolic (conges tive) heart failure I49.49 Other premature depolarizati on Office Visit 12/17/2020 10:15a [facility] Jon Elizondo M.D.,[facility]. C. I11.9 Hypertensive heart disease without heart failure K59.00 Constipation, unspecified I50.20 Unspecified systolic (conges tive) heart failure I42.9 Cardiomyopathy, unspecified Office Visit 12/12/2020 10:00a [facility] Jon Elizondo M.D[facility] I11.9 Hypertensive heart disease without heart failure J43.9 Emphysema, unspecified Office Visit 11/26/2020 10:30a [facility] Jon Elizondo M.D[facility] I50.20 Unspecified systolic (congestive) heart failure I11.9 Hypertensive heart disease w ithout heart failure J06.9 Acute upper respiratory infe ction, unspecified I42.9 Cardiomyopathy, unspecified I49.49 Other premature depolarizati on Office Visit 11/22/2020 10:00a [facility] Jon Elizondo M.D[facility] I50.20 Unspecified systolic (congestive) heart failure I11.9 Hypertensive heart disease w ithout heart failure E78.5 Hyperlipidemia, unspecified Office Visit 10/22/2020 11:00a [facility] Jon Elizondo M.D[facility] I11.9 Hypertensive heart disease without heart failure E78.5 Hyperlipidemia, unspecified I50.20 Unspecified systolic (conges tive) heart failure I95.9 Hypotension, unspecified Assessments Date Code Description Provider 12/24/2020 I11.9 Hypertensive heart disease witho tx heart failure Jon Elizondo M[facility] 12/24/2020 E78.5 Hyperlipidemia, unspecified Samreen Elizondo M[facility] 12/24/2020 I42.9 Cardiomyopathy, unspecified Samreen Elizondo M[facility] 12/23/2020 I25.10 Atherosclerotic hear t disease of [place] coronary artery without angina pectoris Jon Elizondo [...] Hypertensive heart disease witho tx heart failure Jon Elizondo M[facility] 12/12/2020 J43.9 Emphysema, unspecified Jon silva M.D[facility] 11/26/2020 I50.20 Unspecified systolic (congestive ) heart failure Jon Elizondo M.D[facility] 11/26/2020 I11.9 Hypertensive heart disease witho tx heart failure Jon Elizondo M.D[facility] 11/26/2020 J06.9 Acute upper respiratory infectio n, unspecified Jon Elizondo M.D[facility] 11/26/2020 I42.9 Cardiomyopathy, unspecified Samreen Elizondo M.D[facility] 11/26/2020 I49.49 Other premature depolarization Sandra Elizondo M.D[facility] 11/22/2020 I50.20 Unspecified systolic (congestive ) heart failure Jon Elizondo M.D[facility] 11/22/2020 I11.9 Hypertensive heart disease witho tx heart failure Jon Elizondo M.D[facility] 11/22/2020 E78.5 Hyperlipidemia, unspecified Samreen Elizondo M.D[facility]. 10/22/2020 I11.9 Hypertensive heart disease witho tx heart failure Jon Elizondo M.D[facility] 10/22/2020 E78.5 Hyperlipidemia, salmaified Samreen Elizondo M.D[facility]. 10/22/2020 I50.20 Unspecified systolic (congestive ) heart failure Jon Elizondo M.D[facility] 10/22/2020 I95.9 Hypotension, unspecified Jon greene M.D.,[facility]. Plan of Treatment Future Appointment(s):* 01/23/2021 11:00 am - Jon Elizondo M[facility] at [facility] Referrals Refer to Reason for Referral Status Appt Date Mick Ching MD Please eval. and treat this patient for positive nuclear stress test, he needs a cardiac cath. Thank you. Created [address] [facility] [address] [place] [address] [phone]
--- OUTSIDE RECORDS SUMMARY | 2021-03-19 12:34 | CCD | Continuity of Care Document ---
Author Author Adebayo ARCHER P. C. Organization Unknown Address [address] [place] [id number] Phone [phone] Care Team Providers Care Answering Service Operator Name Role Phone Sami Kalyan [facility] AUTM [phone] Mick Ching MD AUTM [phone] JON ELIZONDO M.D. P.C. AUTM [phone] Social History Type Date Description Comments Sex Unknown Allergies and adverse reactions Active Allergies Criticality Reaction | Severity Comments Date Tolmetin Unable to assess criticality 03/28/2020 Medications Active Medications SIG Qnty Indications Ordering Provide r Date Wellbutrin SR 150mg Tablets ER 12H R 1 by mouth twice a day 60tarachele Elizondo M.D.,P.C. 2020 Ipratropium [place]/Albuterol Sulfate 0.5-2.5(3)mg/3ML Solution inhale 1 vial via [...] twice a day 180tabs Jon Elizondo M.D.,P.C. [place] Extract 150mg Capsules take one tablet by [...] H/L Range Note Laboratory test finding 01/22/[address] [address] [phone] Pro-BNP 6385 pg/mL High 0 - 125 Magnesium Serum 1.8 mg/dL 1.7 - 2.2 CBC W/Automated Diff 01/22/[address] [address] [phone] CBC W/Automated Diff (SEE NOTE) 1 WBC [...] Lymph 13.0 % Low 25.0 - 40.0 [place] 8.7 % High 3.0 - 8.0 Eos 3.9 % 0.0 - 7.0 Baso 0.4 % 0.0 - 2.0 %Ig 0.4 % High 0.0 - 0.0 %NRBC 0.0 % 0.0 - 0.0 #Neut 3.81 10^3/uL 2.00 - 6.90 #Lymph 0.67 10^3/uL 0.60 - 3.40 #[place] 0.45 10^3/uL 0.00 - 0.90 #Eos 0.20 10^3/uL 0.00 - 0.70 #Baso 0.02 10^3/uL 0.00 - 0.20 #Ig 0.02 10^3/uL 0.00 - 0.10 #NRBC 0.00 10^3/uL 0.00 - 0.00 Manual Diff NOT INDICATED RBC Morph NOT INDICATED Laboratory test finding 01/22/2021 [facility] [address] [place] [address] [phone] Troponin T 0.04 NG/ML 0.00 - 0.10 2 Comprehensive Metabolic Panel 01/22/2021 [facility] [address] [place] [address] [phone] Comprehensive Metabo (SEE NOTE) 3 Sodium 140 [...] 56 mL/min 4 Laboratory test finding 01/21/2021 [facility] [address] [place] [address] [phone] Troponin T 0.05 NG/ML 0.00 - 0.10 5 Laboratory test finding 01/21/2021 [facility] [address] [place] [address] [phone] Troponin T 0.05 NG/ML 0.00 - 0.10 6 Laboratory test finding 01/21/2021 [facility] [address] [place] [address] [phone] Troponin T 0.06 NG/ML 0.00 - 0.10 7 Laboratory test finding 01/21/2021 [facility] [address] [place] [address] [phone] Troponin T 0.07 NG/ML 0.00 - 0.10 8 Comprehensive Metabolic Panel 01/21/2021 [facility] [address] [place] [address] [phone] Comprehensive Metabo (SEE NOTE) 9 Sodium 140 [...] >60 mL/min 10 Laboratory test finding 01/21/[address] [phone] Magnesium Serum 2.0 mg/dL 1.7 - 2.2 CBC W/Automated Diff 01/21/[address] [address] [phone] CBC W/Automated Diff (SEE NOTE) 11 WBC [...] Lymph 10.9 % Low 25.0 - 40.0 [place] 7.1 % 3.0 - 8.0 Eos 2.2 % 0.0 - 7.0 Baso 0.5 % 0.0 - 2.0 %Ig 0.2 % High 0.0 - 0.0 %NRBC 0.0 % 0.0 - 0.0 #Neut 4.37 10^3/uL 2.00 - 6.90 #Lymph 0.60 10^3/uL 0.60 - 3.40 #[place] 0.39 10^3/uL 0.00 - 0.90 #Eos 0.12 [...] Normal: Normal 13 Laboratory test finding 01/21/2021 [facility] [address] [place] [address] [phone] Iron 48 g/dL 42 - 135 Vitamin B12 Serum 1269 pg/mL High 232 - 1245 Laboratory test finding 01/20/2021 [facility] [address] [place] [phone] Troponin T 0.03 NG/ML 0.00 - 0.10 14 Laboratory test finding 01/20/2021 [facility] [address] [place] [phone] Pro-BNP 6632 pg/mL High 0 - 125 Comprehensive Metabolic Panel 01/20/2021 [facility] [address] [place] [address] [phone] Comprehensive Metabo (SEE NOTE) 15 Sodium 140 [...] >60 mL/min 16 CBC W/Automated Diff 01/20/[address] [address] [phone] CBC W/Automated Diff (SEE NOTE) 17 WBC [...] Lymph 14.2 % Low 25.0 - 40.0 [place] 7.7 % 3.0 - 8.0 Eos 3.2 % 0.0 - 7.0 Baso 0.3 % 0.0 - 2.0 %Ig 0.3 % High 0.0 - 0.0 %NRBC 0.0 % 0.0 - 0.0 #Neut 4.66 10^3/uL 2.00 - 6.90 #Lymph 0.89 10^3/uL 0.60 - 3.40 #[place] 0.48 10^3/uL 0.00 - 0.90 #Eos 0.20 10^3/uL 0.00 - 0.70 #Baso 0.02 10^3/uL 0.00 - 0.20 #Ig 0.02 10^3/uL 0.00 - 0.10 #NRBC 0.00 10^3/uL 0.00 - 0.00 Manual Diff NOT INDICATED RBC Morph NOT INDICATED Alcohol Ethyl Blood 01/20/[address] [address] [phone] Alcohol 70.0 mg/dL Alcohol % 0.07 % High 0.00 - 0.01 18 CBC W/Automated Diff 01/08/[address] [phone] CBC W/Automated Diff (SEE NOTE) 19 WBC [...] Lymph 9.1 % Low 25.0 - 40.0 [place] 10.7 % High 3.0 - 8.0 Eos 3.2 % 0.0 - 7.0 Baso 0.8 % 0.0 - 2.0 %Ig 0.2 % High 0.0 - 0.0 %NRBC 0.0 % 0.0 - 0.0 #Neut 3.84 10^3/uL 2.00 - 6.90 #Lymph 0.46 10^3/uL Low 0.60 - 3.40 #[place] 0.54 10^3/uL 0.00 - 0.90 #Eos 0.16 10^3/uL 0.00 - 0.70 #Baso 0.04 10^3/uL 0.00 - 0.20 #Ig 0.01 10^3/uL 0.00 - 0.10 #NRBC 0.00 10^3/uL 0.00 - 0.00 Manual Diff NOT INDICATED RBC Morph NOT INDICATED Comprehensive Metabolic Panel 01/08/2021 [facility] [address] [place] [phone] Comprehensive Metabo (SEE NOTE) 20 Sodium 139 [...] >60 mL/min 21 Laboratory test finding 01/07/2021 [facility] [address] [place], [place] [phone] Troponin T 0.02 NG/ML 0.00 - 0.10 22 Comprehensive Metabolic Panel 01/07/2021 [facility] [address] [place] [address] [phone] Comprehensive Metabo (SEE NOTE) 23, 24 Sodium [...] >60 mL/min 25 CBC W/Automated Diff 01/07/[address] [address] [phone] CBC W/Automated Diff (SEE NOTE) 26 WBC [...] Lymph 10.9 % Low 25.0 - 40.0 [place] 9.1 % High 3.0 - 8.0 Eos 3.4 % 0.0 - 7.0 Baso 0.4 % 0.0 - 2.0 %Ig 0.4 % High 0.0 - 0.0 %NRBC 0.0 % 0.0 - 0.0 #Neut 3.77 10^3/uL 2.00 - 6.90 #Lymph 0.54 10^3/uL Low 0.60 - 3.40 #[place] 0.45 10^3/uL 0.00 - 0.90 #Eos 0.17 10^3/uL 0.00 - 0.70 #Baso 0.02 10^3/uL 0.00 - 0.20 #Ig 0.02 10^3/uL 0.00 - 0.10 #NRBC 0.00 10^3/uL 0.00 - 0.00 Manual Diff NOT INDICATED RBC Morph NOT INDICATED CBC W/Automated Diff 01/06/[address] [address] [phone] CBC W/Automated Diff (SEE NOTE) 27 WBC [...] Lymph 10.5 % Low 25.0 - 40.0 [place] 8.4 % High 3.0 - 8.0 Eos 2.3 % 0.0 - 7.0 Baso 0.3 % 0.0 - 2.0 %Ig 0.3 % High 0.0 - 0.0 %NRBC 0.0 % 0.0 - 0.0 #Neut 4.75 10^3/uL 2.00 - 6.90 #Lymph 0.64 10^3/uL 0.60 - 3.40 #[place] 0.51 10^3/uL 0.00 - 0.90 #Eos 0.14 10^3/uL 0.00 - 0.70 #Baso 0.02 10^3/uL 0.00 - 0.20 #Ig 0.02 10^3/uL 0.00 - 0.10 #NRBC 0.00 10^3/uL 0.00 - 0.00 Manual Diff NOT INDICATED RBC Morph NOT INDICATED Comprehensive Metabolic Panel 01/06/2021 [facility] [address] [place] [address] [phone] Comprehensive Metabo (SEE NOTE) 28 Sodium 141 [...] >60 mL/min 29 Laboratory test finding 01/06/2021 [facility] [address] [place] [address] [phone] Iron 40 g/dL Low 42 - 135 Comprehensive Metabolic Panel 01/05/2021 [facility] [address] [place] [address] [phone] Comprehensive Metabo (SEE NOTE) 30 Sodium 141 [...] >60 mL/min 31 Laboratory test finding 01/05/[address] [address] [phone] Magnesium Serum 1.8 mg/dL 1.7 - 2.2 CBC W/Automated Diff 01/05/[address] [address] [phone] CBC W/Automated Diff (SEE NOTE) 32 WBC [...] Lymph 11.6 % Low 25.0 - 40.0 [place] 8.5 % High 3.0 - 8.0 Eos 1.7 % 0.0 - 7.0 Baso 0.6 % 0.0 - 2.0 %Ig 0.4 % High 0.0 - 0.0 %NRBC 0.0 % 0.0 - 0.0 #Neut 4.21 10^3/uL 2.00 - 6.90 #Lymph 0.63 10^3/uL 0.60 - 3.40 #[place] 0.46 10^3/uL 0.00 - 0.90 #Eos 0.09 10^3/uL 0.00 - 0.70 #Baso 0.03 10^3/uL 0.00 - 0.20 #Ig 0.02 10^3/uL 0.00 - 0.10 #NRBC 0.00 10^3/uL 0.00 - 0.00 Manual Diff NOT INDICATED RBC Morph NOT INDICATED Laboratory test finding 01/04/2021 [facility] [address] [place] [address] [phone] Potassium 4.1 mEq/L 3.6 - 5.0 Laboratory test finding 01/04/2021 [facility] [address] [place], [place] [address] [phone] Troponin T 0.02 NG/ML 0.00 - 0.10 33 Laboratory test finding 01/04/2021 [facility] [address] [place], [place] [phone] Magnesium Serum 1.8 mg/dL 1.7 - 2.2 Iron 41 g/dL Low 42 - 135 CBC W/Automated Diff 01/04/[address] [address] [phone] CBC W/Automated Diff (SEE NOTE) 34 WBC [...] Lymph 12.8 % Low 25.0 - 40.0 [place] 8.0 % 3.0 - 8.0 Eos 2.1 % 0.0 - 7.0 Baso 0.3 % 0.0 - 2.0 %Ig 0.3 % High 0.0 - 0.0 %NRBC 0.0 % 0.0 - 0.0 #Neut 4.47 10^3/uL 2.00 - 6.90 #Lymph 0.75 10^3/uL 0.60 - 3.40 #[place] 0.47 10^3/uL 0.00 - 0.90 #Eos 0.12 10^3/uL 0.00 - 0.70 #Baso 0.02 10^3/uL 0.00 - 0.20 #Ig 0.02 10^3/uL 0.00 - 0.10 #NRBC 0.00 10^3/uL 0.00 - 0.00 Manual Diff NOT INDICATED RBC Morph NOT INDICATED Comprehensive Metabolic Panel 01/04/[address] [address] [phone] Comprehensive Metabo (SEE NOTE) 35 Sodium 142 [...] >60 mL/min 36 Laboratory test finding 01/04/2021 [place] [address] [phone] Troponin T 0.02 NG/ML 0.00 - 0.10 37 Laboratory test finding 01/03/2021 [place] [address] [phone] Troponin T 0.02 NG/ML 0.00 - 0.10 38 Laboratory test finding 01/03/2021 [place] [address] [phone] Troponin T 0.02 NG/ML 0.00 - 0.10 39 CBC W/Automated Diff 01/03/2021 [place] [address] [phone] CBC W/Automated Diff (SEE NOTE) 40 WBC [...] Lymph 8.7 % Low 25.0 - 40.0 [place] 6.6 % 3.0 - 8.0 Eos 0.9 % 0.0 - 7.0 Baso 0.3 % 0.0 - 2.0 %Ig 0.5 % High 0.0 - 0.0 %NRBC 0.0 % 0.0 - 0.0 #Neut 5.25 10^3/uL 2.00 - 6.90 #Lymph 0.55 10^3/uL Low 0.60 - 3.40 #[place] 0.42 10^3/uL 0.00 - 0.90 #Eos 0.06 10^3/uL 0.00 - 0.70 #Baso 0.02 10^3/uL 0.00 - 0.20 #Ig 0.03 10^3/uL 0.00 - 0.10 #NRBC 0.00 10^3/uL 0.00 - 0.00 Manual Diff NOT INDICATED RBC Morph NOT INDICATED Laboratory test finding 01/03/2021 [facility] [address] [place] [address] [phone] Troponin T 0.02 NG/ML 0.00 - 0.10 41 Pro-BNP 6929 pg/mL High 0 - 125 Comprehensive Metabolic Panel 01/03/2021 [facility] [address] [place] [address] [phone] Comprehensive Metabo (SEE NOTE) 42 Sodium 143 [...] >60 mL/min 43 Laboratory test finding 01/03/2021 [place] [address] [phone] Magnesium Serum 1.9 mg/dL 1.7 - 2.2 44 TSH Highly Sensitive 3.56 uIU/mL 0.47 - 5.01 T4 - Free 1.37 ng/dL 0.93 - 1.70 Laboratory test finding 12/12/[address] [address] [phone] Magnesium Serum 2.1 mg/dL 1.7 - 2.2 Pro-BNP 7997 pg/mL High 0 - 125 CBC W/Automated Diff 12/12/[address] [address] [phone] CBC W/Automated Diff (SEE NOTE) 45 WBC [...] Lymph 7.8 % Low 25.0 - 40.0 [place] 7.1 % 3.0 - 8.0 Eos 0.7 % 0.0 - 7.0 Baso 0.3 % 0.0 - 2.0 %Ig 0.4 % High 0.0 - 0.0 %NRBC 0.0 % 0.0 - 0.0 #Neut 5.88 10^3/uL 2.00 - 6.90 #Lymph 0.55 10^3/uL Low 0.60 - 3.40 #[place] 0.50 10^3/uL 0.00 - 0.90 #Eos 0.05 10^3/uL 0.00 - 0.70 #Baso 0.02 10^3/uL 0.00 - 0.20 #Ig 0.03 10^3/uL 0.00 - 0.10 #NRBC 0.00 10^3/uL 0.00 - 0.00 Manual Diff NOT INDICATED RBC Morph NOT INDICATED Cve Panel 12/12/[address] [address] [phone] Cve Panel (SEE NOTE) 46 Cholesterol 108 mg/dL Low 131 - 200 Triglycerides 52 mg/dL 35 - 160 HDL 40 mg/dL 29 - 86 LDL 68 mg/dL 65 - 175 Risk Factor 2.7 Low 3.4 - 4.9 LDL/HDL 1.70 1.00 - 3.55 47 Comprehensive Metabolic Panel 12/12/2020 [facility] [address] [place] [phone] Comprehensive Metabo (SEE NOTE) 48 Sodium 142 [...] Amer GFR >60 mL/min 49 Urinalysis 11/22/[address] [address] [phone] Urinalysis (SEE NOTE) 50, 51 Source R Color yellow Normal: Yellow Clarity clear Normal: Clear Spec [place] 1.015 1.001 - 1.030 pH 5 5 - 9 Glucose NORM Normal: Negative Bilirubin NEG Normal: Negative Ketone NEG Normal: Negative Protein NEG Normal: Negative Nitrite NEG Normal: Negative Blood NEG Normal: Negative Leuk Est NEG Normal: Negative Urobilinogen NOR less than 1.0 mg/dL Microscopic Not Indicate CBC W/Automated Diff 11/22/[address] [address] [phone] CBC W/Automated Diff (SEE NOTE) 52 WBC [...] Lymph 7.2 % Low 25.0 - 40.0 [place] 5.8 % 3.0 - 8.0 Eos 0.7 % 0.0 - 7.0 Baso 0.1 % 0.0 - 2.0 %Ig 0.4 % High 0.0 - 0.0 %NRBC 0.0 % 0.0 - 0.0 #Neut 5.73 10^3/uL 2.00 - 6.90 #Lymph 0.48 10^3/uL Low 0.60 - 3.40 #[place] 0.39 10^3/uL 0.00 - 0.90 #Eos 0.05 10^3/uL 0.00 - 0.70 #Baso 0.01 10^3/uL 0.00 - 0.20 #Ig 0.03 10^3/uL 0.00 - 0.10 #NRBC 0.00 10^3/uL 0.00 - 0.00 Manual Diff NOT INDICATED RBC Morph NOT INDICATED Laboratory test finding 11/22/2020 [facility] [address] [place] [address] [phone] Hgba1c 5.2 % 4.4 - 6.1 53 Iron 42 g/dL 42 - 135 Magnesium Serum 2.2 mg/dL 1.7 - 2.2 Comprehensive Metabolic Panel 11/22/2020 [facility] [address] [place] [address] [phone] Comprehensive Metabo (SEE NOTE) 54 Sodium 142 [...] GFR 56 mL/min 55 Cve Panel 11/22/[address] [address] [phone] Cve Panel (SEE NOTE) 56 Cholesterol 109 mg/dL Low 131 - 200 Triglycerides 45 mg/dL 35 - 160 HDL 45 mg/dL 29 - 86 LDL 66 mg/dL 65 - 175 Risk Factor 2.4 Low 3.4 - 4.9 LDL/HDL 1.47 1.00 - 3.55 57 Laboratory test finding 11/22/2020 [place] [address] [phone] TSH Highly Sensitive 3.34 uIU/mL 0.47 - 5.0 1 Pro-BNP 4405 pg/mL High 0 - 125 Urinalysis 07/24/2020 [place] 7870822 [phone] Urinalysis (SEE NOTE) 58, 59 Source R Color yellow Normal: Yellow Clarity clear Normal: Clear Spec [place] 1.015 1.001 - 1.030 pH 5 5 [...] Normal: None Seen Laboratory test finding 07/24/2020 [place] [address] [phone] PSA - Diagnostic 1.01 ng/mL 0.00 - 4.00 60 Cve Panel 07/24/2020 [place] 7870824 [phone] Cve Panel (SEE NOTE) 61 Cholesterol 133 mg/dL 131 - 200 Triglycerides 82 mg/dL 35 - 160 HDL 55 mg/dL 29 - 86 LDL 72 mg/dL 65 - 175 Risk Factor 2.4 Low 3.4 - 4.9 LDL/HDL 1.31 1.00 - 3.55 62 Basic Metabolic Panel 07/24/2020 [place] [phone] Basic Metabolic Pane (SEE NOTE) 63 Sodium [...] result was determined by "ECLIA", on the LIA EDGAR 6000. Values obtained with different assay [...] Normal Procedures Date Code Description Status 12/24/2020 65330 Office/Outpatient Established Clarita w MDM 20-29 Min Completed 12/23/2020 38629 Myocardial Perfusion,WM & Ef Com pleted 12/19/2020 75405 Office/Outpatient Established Mo d MDM 30-39 Min Completed 12/19/2020 77872 EKG Completed 12/17/2020 22584 Office/Outpatient Established Mo d MDM 30-39 Min Completed 12/12/2020 03287 Office/Outpatient Established Mo d MDM 30-39 Min Completed 11/26/2020 93506 Office/Outpatient Established Mo d MDM 30-39 Min Completed 11/26/2020 23212 Echocardiogram, Complete Complet ed 11/26/2020 13889 EKG Completed 11/22/2020 77748 Office/Outpatient Established Mo d MDM 30-39 Min Completed 10/22/2020 23331 Office/Outpatient Established Mo d MDM 30-39 Min Completed Encounters Type Date Location Provider Dx Diagnosis Office Visit 12/24/2020 11:30a [facility] Jon Elizondo M.D.,P. C. I11.9 Hypertensive heart disease without heart failure E78.5 Hyperlipidemia, unspecified I42.9 Cardiomyopathy, unspecified Office Visit 12/19/2020 10:15a [facility] Jon Elizondo M.D.,P. C. I11.9 Hypertensive heart disease without heart failure D50.9 Iron deficiency anemia, unsp ecified E78.5 Hyperlipidemia, unspecified I50.20 Unspecified systolic (conges tive) heart failure I49.49 Other premature depolarizati on Office Visit 12/17/2020 10:15a [facility] Jon Elizondo M.D.,P. C. I11.9 Hypertensive heart disease without heart failure K59.00 Constipation, unspecified I50.20 Unspecified systolic (conges tive) heart failure I42.9 Cardiomyopathy, unspecified Office Visit 12/12/2020 10:00a [facility] Jon Elizondo M.D.,P. C. I11.9 Hypertensive heart disease without heart failure J43.9 Emphysema, unspecified Office Visit 11/26/2020 10:30a [facility] Jon Elizondo M.D.,P. C. I50.20 Unspecified systolic (congestive) heart failure I11.9 Hypertensive heart disease w ithout heart failure J06.9 Acute upper respiratory infe ction, unspecified I42.9 Cardiomyopathy, unspecified I49.49 Other premature depolarizati on Office Visit 11/22/2020 10:00a [facility] Jon Elizondo M.D.,P. C. I50.20 Unspecified systolic (congestive) heart failure I11.9 Hypertensive heart disease w ithout heart failure E78.5 Hyperlipidemia, unspecified Office Visit 10/22/2020 11:00a [facility] Jon Elizondo M.D.,P. C. I11.9 Hypertensive heart disease without heart failure E78.5 Hyperlipidemia, unspecified I50.20 Unspecified systolic (conges tive) heart failure I95.9 Hypotension, unspecified Assessments Date Code Description Provider 12/24/2020 I11.9 Hypertensive heart disease witho ms heart failure Jon Elizondo M.D[facility]. 12/24/2020 E78.5 Hyperlipidemia, unspecified Samreen Elizondo M.D.,[facility]. 12/24/2020 I42.9 Cardiomyopathy, unspecified Samreen Elizondo M.D[facility]. 12/23/2020 I25.10 Atherosclerotic hear t disease of [place] coronary artery without angina pectoris Jon Elizondo [...] M.D.,P.C. 12/12/2020 I11.9 Hypertensive heart disease witho ms heart failure Jon Elizondo M.D[facility]. 12/12/2020 J43.9 Emphysema, unspecified Jon silva M.D.,[facility]. 11/26/2020 I50.20 Unspecified systolic (congestive ) heart failure Jon Elizondo M.D[facility]. 11/26/2020 I11.9 Hypertensive heart disease witho ms heart failure Jon Elizondo M.D[facility] 11/26/2020 J06.9 Acute upper respiratory infectio n, unspecified Jon Elizondo M.D[facility]. 11/26/2020 I42.9 Cardiomyopathy, unspecified Samreen Elizondo M.D[facility]. 11/26/2020 I49.49 Other premature depolarization Sandra Elizondo M.D.,P.C. 11/22/2020 I50.20 Unspecified systolic (congestive ) heart failure Jon Elizondo M.D[facility] 11/22/2020 I11.9 Hypertensive heart disease witho ms heart failure Jon Elizondo M.D[facility]. 11/22/2020 E78.5 Hyperlipidemia, unspecified Samreen Elizondo M.D[facility]. 10/22/2020 I11.9 Hypertensive heart disease witho ms heart failure Jon Elizondo M.D[facility] 10/22/2020 E78.5 Hyperlipidemia, salmaified Samreen Elizondo M.D[facility]. 10/22/2020 I50.20 Unspecified systolic (congestive ) heart failure Jon Elizondo M[facility] 10/22/2020 I95.9 Hypotension, unspecified Jon greene M.D[facility] Plan of Treatment Future Appointment(s):* 01/23/2021 11:00 am - Jon Elizondo M.D[facility]P.[facility] at [facility] Referrals Refer to Reason for Referral Status Appt Date Mick Ching MD Please eval. and treat this patient for positive nuclear stress test, he needs a cardiac cath. Thank you. Created [address] [facility] [address] [place] [address] [phone]
--- OUTSIDE RECORDS SUMMARY | 2021-03-19 12:34 | CCD | Continuity of Care Document ---
Author Author Adebayo ARCHER P. C. Organization Unknown Address [address] [place] [address] Phone [phone] Care Team Providers [facility] Name Role Phone Sami Kalyan [facility] AUTM [phone] Mick Ching MD AUTM [phone] JON ELIZONDO M.D. P.C. AUTM [phone] Social History Type Date Description Comments Sex Unknown Allergies and adverse reactions Active Allergies Criticality Reaction | Severity Comments Date Tolmetin Unable to assess criticality 03/28/2020 Medications Active Medications SIG Qnty Indications Ordering Provide r Date Wellbutrin SR 150mg Tablets ER 12H R 1 by mouth twice a day 60tarachele Elizondo M.D.,P.[facility]. 2020 Ipratropium [place]/Albuterol Sulfate 0.5-2.5(3)mg/3ML Solution inhale 1 vial via [...] twice a day 180tabs Jon Elizondo M.D.,P.C. [place] Extract 150mg Capsules take one tablet by [...] H/L Range Note Laboratory test finding 01/22/[address] [address] [phone] Pro-BNP 6385 pg/mL High 0 - 125 Magnesium Serum 1.8 mg/dL 1.7 - 2.2 CBC W/Automated Diff 01/22/[address] [address] [phone] CBC W/Automated Diff (SEE NOTE) 1 WBC [...] Lymph 13.0 % Low 25.0 - 40.0 Luna 8.7 % High 3.0 - 8.0 Eos 3.9 % 0.0 - 7.0 Baso 0.4 % 0.0 - 2.0 %Ig 0.4 % High 0.0 - 0.0 %NRBC 0.0 % 0.0 - 0.0 #Neut 3.81 10^3/uL 2.00 - 6.90 #Lymph 0.67 10^3/uL 0.60 - 3.40 #Luna 0.45 10^3/uL 0.00 - 0.90 #Eos 0.20 10^3/uL 0.00 - 0.70 #Baso 0.02 10^3/uL 0.00 - 0.20 #Ig 0.02 10^3/uL 0.00 - 0.10 #NRBC 0.00 10^3/uL 0.00 - 0.00 Manual Diff NOT INDICATED RBC Morph NOT INDICATED Laboratory test finding 01/22/2021 [facility] [address] [place] [address] [phone] Troponin T 0.04 NG/ML 0.00 - 0.10 2 Comprehensive Metabolic Panel 01/22/2021 [facility] [address] [place] [address] [phone] Comprehensive Metabo (SEE NOTE) 3 Sodium 140 [...] 56 mL/min 4 Laboratory test finding 01/21/2021 [facility] [address] [place] [address] [phone] Troponin T 0.05 NG/ML 0.00 - 0.10 5 Laboratory test finding 01/21/2021 [facility] [address] [place] [address] [phone] Troponin T 0.05 NG/ML 0.00 - 0.10 6 Laboratory test finding 01/21/2021 [facility] [address] [place] [address] [phone] Troponin T 0.06 NG/ML 0.00 - 0.10 7 Laboratory test finding 01/21/2021 [facility] [address] [place] [address] [phone] Troponin T 0.07 NG/ML 0.00 - 0.10 8 Comprehensive Metabolic Panel 01/21/2021 [facility] [address] [place] [address] [phone] Comprehensive Metabo (SEE NOTE) 9 Sodium 140 [...] >60 mL/min 10 Laboratory test finding 01/21/[address] [phone] Magnesium Serum 2.0 mg/dL 1.7 - 2.2 CBC W/Automated Diff 01/21/[address] [address] [phone] CBC W/Automated Diff (SEE NOTE) 11 WBC [...] Lymph 10.9 % Low 25.0 - 40.0 Luna 7.1 % 3.0 - 8.0 Eos 2.2 % 0.0 - 7.0 Baso 0.5 % 0.0 - 2.0 %Ig 0.2 % High 0.0 - 0.0 %NRBC 0.0 % 0.0 - 0.0 #Neut 4.37 10^3/uL 2.00 - 6.90 #Lymph 0.60 10^3/uL 0.60 - 3.40 #Luna 0.39 10^3/uL 0.00 - 0.90 #Eos 0.12 [...] Normal: Normal 13 Laboratory test finding 01/21/2021 [facility] [address] [place] [address] [phone] Iron 48 g/dL 42 - 135 Vitamin B12 Serum 1269 pg/mL High 232 - 1245 Laboratory test finding 01/20/2021 [facility] [address] [place] [phone] Troponin T 0.03 NG/ML 0.00 - 0.10 14 Laboratory test finding 01/20/2021 [facility] [address] [place] [phone] Pro-BNP 6632 pg/mL High 0 - 125 Comprehensive Metabolic Panel 01/20/2021 [facility] [address] [place] [address] [phone] Comprehensive Metabo (SEE NOTE) 15 Sodium 140 [...] >60 mL/min 16 CBC W/Automated Diff 01/20/[address] [address] [phone] CBC W/Automated Diff (SEE NOTE) 17 WBC [...] Lymph 14.2 % Low 25.0 - 40.0 Luna 7.7 % 3.0 - 8.0 Eos 3.2 % 0.0 - 7.0 Baso 0.3 % 0.0 - 2.0 %Ig 0.3 % High 0.0 - 0.0 %NRBC 0.0 % 0.0 - 0.0 #Neut 4.66 10^3/uL 2.00 - 6.90 #Lymph 0.89 10^3/uL 0.60 - 3.40 #Luna 0.48 10^3/uL 0.00 - 0.90 #Eos 0.20 10^3/uL 0.00 - 0.70 #Baso 0.02 10^3/uL 0.00 - 0.20 #Ig 0.02 10^3/uL 0.00 - 0.10 #NRBC 0.00 10^3/uL 0.00 - 0.00 Manual Diff NOT INDICATED RBC Morph NOT INDICATED Alcohol Ethyl Blood 01/20/[address] [address] [phone] Alcohol 70.0 mg/dL Alcohol % 0.07 % High 0.00 - 0.01 18 CBC W/Automated Diff 01/08/[address] [phone] CBC W/Automated Diff (SEE NOTE) 19 WBC [...] Lymph 9.1 % Low 25.0 - 40.0 Luna 10.7 % High 3.0 - 8.0 Eos 3.2 % 0.0 - 7.0 Baso 0.8 % 0.0 - 2.0 %Ig 0.2 % High 0.0 - 0.0 %NRBC 0.0 % 0.0 - 0.0 #Neut 3.84 10^3/uL 2.00 - 6.90 #Lymph 0.46 10^3/uL Low 0.60 - 3.40 #Luna 0.54 10^3/uL 0.00 - 0.90 #Eos 0.16 10^3/uL 0.00 - 0.70 #Baso 0.04 10^3/uL 0.00 - 0.20 #Ig 0.01 10^3/uL 0.00 - 0.10 #NRBC 0.00 10^3/uL 0.00 - 0.00 Manual Diff NOT INDICATED RBC Morph NOT INDICATED Comprehensive Metabolic Panel 01/08/2021 [facility] [address] [place] [phone] Comprehensive Metabo (SEE NOTE) 20 Sodium 139 [...] >60 mL/min 21 Laboratory test finding 01/07/2021 [facility] [address] [place], [place] [phone] Troponin T 0.02 NG/ML 0.00 - 0.10 22 Comprehensive Metabolic Panel 01/07/2021 [facility] [address] [place] [address] [phone] Comprehensive Metabo (SEE NOTE) 23, 24 Sodium [...] >60 mL/min 25 CBC W/Automated Diff 01/07/[address] [address] [phone] CBC W/Automated Diff (SEE NOTE) 26 WBC [...] Lymph 10.9 % Low 25.0 - 40.0 Luna 9.1 % High 3.0 - 8.0 Eos 3.4 % 0.0 - 7.0 Baso 0.4 % 0.0 - 2.0 %Ig 0.4 % High 0.0 - 0.0 %NRBC 0.0 % 0.0 - 0.0 #Neut 3.77 10^3/uL 2.00 - 6.90 #Lymph 0.54 10^3/uL Low 0.60 - 3.40 #Luna 0.45 10^3/uL 0.00 - 0.90 #Eos 0.17 10^3/uL 0.00 - 0.70 #Baso 0.02 10^3/uL 0.00 - 0.20 #Ig 0.02 10^3/uL 0.00 - 0.10 #NRBC 0.00 10^3/uL 0.00 - 0.00 Manual Diff NOT INDICATED RBC Morph NOT INDICATED CBC W/Automated Diff 01/06/[address] [address] [phone] CBC W/Automated Diff (SEE NOTE) 27 WBC [...] Lymph 10.5 % Low 25.0 - 40.0 Luna 8.4 % High 3.0 - 8.0 Eos 2.3 % 0.0 - 7.0 Baso 0.3 % 0.0 - 2.0 %Ig 0.3 % High 0.0 - 0.0 %NRBC 0.0 % 0.0 - 0.0 #Neut 4.75 10^3/uL 2.00 - 6.90 #Lymph 0.64 10^3/uL 0.60 - 3.40 #Luna 0.51 10^3/uL 0.00 - 0.90 #Eos 0.14 10^3/uL 0.00 - 0.70 #Baso 0.02 10^3/uL 0.00 - 0.20 #Ig 0.02 10^3/uL 0.00 - 0.10 #NRBC 0.00 10^3/uL 0.00 - 0.00 Manual Diff NOT INDICATED RBC Morph NOT INDICATED Comprehensive Metabolic Panel 01/06/2021 [facility] [address] [place] [address] [phone] Comprehensive Metabo (SEE NOTE) 28 Sodium 141 [...] >60 mL/min 29 Laboratory test finding 01/06/2021 [facility] [address] [place] [address] [phone] Iron 40 g/dL Low 42 - 135 Comprehensive Metabolic Panel 01/05/2021 [facility] [address] [place] [address] [phone] Comprehensive Metabo (SEE NOTE) 30 Sodium 141 [...] >60 mL/min 31 Laboratory test finding 01/05/[address] [address] [phone] Magnesium Serum 1.8 mg/dL 1.7 - 2.2 CBC W/Automated Diff 01/05/[address] [address] [phone] CBC W/Automated Diff (SEE NOTE) 32 WBC [...] Lymph 11.6 % Low 25.0 - 40.0 Luna 8.5 % High 3.0 - 8.0 Eos 1.7 % 0.0 - 7.0 Baso 0.6 % 0.0 - 2.0 %Ig 0.4 % High 0.0 - 0.0 %NRBC 0.0 % 0.0 - 0.0 #Neut 4.21 10^3/uL 2.00 - 6.90 #Lymph 0.63 10^3/uL 0.60 - 3.40 #Luna 0.46 10^3/uL 0.00 - 0.90 #Eos 0.09 10^3/uL 0.00 - 0.70 #Baso 0.03 10^3/uL 0.00 - 0.20 #Ig 0.02 10^3/uL 0.00 - 0.10 #NRBC 0.00 10^3/uL 0.00 - 0.00 Manual Diff NOT INDICATED RBC Morph NOT INDICATED Laboratory test finding 01/04/2021 [facility] [address] [place] [address] [phone] Potassium 4.1 mEq/L 3.6 - 5.0 Laboratory test finding 01/04/2021 [facility] [address] [place], [place] [phone] Troponin T 0.02 NG/ML 0.00 - 0.10 33 Laboratory test finding 01/04/2021 [facility] [address] [place], [place] [id number] [phone] Magnesium Serum 1.8 mg/dL 1.7 - 2.2 Iron 41 g/dL Low 42 - 135 CBC W/Automated Diff 01/04/[address] [address] [phone] CBC W/Automated Diff (SEE NOTE) 34 WBC [...] Lymph 12.8 % Low 25.0 - 40.0 Luna 8.0 % 3.0 - 8.0 Eos 2.1 % 0.0 - 7.0 Baso 0.3 % 0.0 - 2.0 %Ig 0.3 % High 0.0 - 0.0 %NRBC 0.0 % 0.0 - 0.0 #Neut 4.47 10^3/uL 2.00 - 6.90 #Lymph 0.75 10^3/uL 0.60 - 3.40 #Luna 0.47 10^3/uL 0.00 - 0.90 #Eos 0.12 10^3/uL 0.00 - 0.70 #Baso 0.02 10^3/uL 0.00 - 0.20 #Ig 0.02 10^3/uL 0.00 - 0.10 #NRBC 0.00 10^3/uL 0.00 - 0.00 Manual Diff NOT INDICATED RBC Morph NOT INDICATED Comprehensive Metabolic Panel 01/04/[address] [address] [phone] Comprehensive Metabo (SEE NOTE) 35 Sodium 142 [...] >60 mL/min 36 Laboratory test finding 01/04/2021 [place] [address] [phone] Troponin T 0.02 NG/ML 0.00 - 0.10 37 Laboratory test finding 01/03/2021 [place] [address] [phone] Troponin T 0.02 NG/ML 0.00 - 0.10 38 Laboratory test finding 01/03/2021 [place] [address] [phone] Troponin T 0.02 NG/ML 0.00 - 0.10 39 CBC W/Automated Diff 01/03/2021 [place] [address] [phone] CBC W/Automated Diff (SEE NOTE) 40 WBC [...] Lymph 8.7 % Low 25.0 - 40.0 Luna 6.6 % 3.0 - 8.0 Eos 0.9 % 0.0 - 7.0 Baso 0.3 % 0.0 - 2.0 %Ig 0.5 % High 0.0 - 0.0 %NRBC 0.0 % 0.0 - 0.0 #Neut 5.25 10^3/uL 2.00 - 6.90 #Lymph 0.55 10^3/uL Low 0.60 - 3.40 #Luna 0.42 10^3/uL 0.00 - 0.90 #Eos 0.06 10^3/uL 0.00 - 0.70 #Baso 0.02 10^3/uL 0.00 - 0.20 #Ig 0.03 10^3/uL 0.00 - 0.10 #NRBC 0.00 10^3/uL 0.00 - 0.00 Manual Diff NOT INDICATED RBC Morph NOT INDICATED Laboratory test finding 01/03/2021 [facility] [address] [place] [address] [phone] Troponin T 0.02 NG/ML 0.00 - 0.10 41 Pro-BNP 6929 pg/mL High 0 - 125 Comprehensive Metabolic Panel 01/03/2021 [facility] [address] [place] [address] [phone] Comprehensive Metabo (SEE NOTE) 42 Sodium 143 [...] >60 mL/min 43 Laboratory test finding 01/03/2021 [place] [address] [phone] Magnesium Serum 1.9 mg/dL 1.7 - 2.2 44 TSH Highly Sensitive 3.56 uIU/mL 0.47 - 5.01 T4 - Free 1.37 ng/dL 0.93 - 1.70 Laboratory test finding 12/12/[address] [address] [phone] Magnesium Serum 2.1 mg/dL 1.7 - 2.2 Pro-BNP 7997 pg/mL High 0 - 125 CBC W/Automated Diff 12/12/[address] [address] [phone] CBC W/Automated Diff (SEE NOTE) 45 WBC [...] Lymph 7.8 % Low 25.0 - 40.0 Luna 7.1 % 3.0 - 8.0 Eos 0.7 % 0.0 - 7.0 Baso 0.3 % 0.0 - 2.0 %Ig 0.4 % High 0.0 - 0.0 %NRBC 0.0 % 0.0 - 0.0 #Neut 5.88 10^3/uL 2.00 - 6.90 #Lymph 0.55 10^3/uL Low 0.60 - 3.40 #Luna 0.50 10^3/uL 0.00 - 0.90 #Eos 0.05 10^3/uL 0.00 - 0.70 #Baso 0.02 10^3/uL 0.00 - 0.20 #Ig 0.03 10^3/uL 0.00 - 0.10 #NRBC 0.00 10^3/uL 0.00 - 0.00 Manual Diff NOT INDICATED RBC Morph NOT INDICATED Cve Panel 12/12/[address] [address] [phone] Cve Panel (SEE NOTE) 46 Cholesterol 108 mg/dL Low 131 - 200 Triglycerides 52 mg/dL 35 - 160 HDL 40 mg/dL 29 - 86 LDL 68 mg/dL 65 - 175 Risk Factor 2.7 Low 3.4 - 4.9 LDL/HDL 1.70 1.00 - 3.55 47 Comprehensive Metabolic Panel 12/12/2020 [facility] [address] [place] [address] [phone] Comprehensive Metabo (SEE NOTE) 48 Sodium 142 [...] Amer GFR >60 mL/min 49 Urinalysis 11/22/[address] [address] [phone] Urinalysis (SEE NOTE) 50, 51 Source R Color yellow Normal: Yellow Clarity clear Normal: Clear Spec [place] 1.015 1.001 - 1.030 pH 5 5 - 9 Glucose NORM Normal: Negative Bilirubin NEG Normal: Negative Ketone NEG Normal: Negative Protein NEG Normal: Negative Nitrite NEG Normal: Negative Blood NEG Normal: Negative Leuk Est NEG Normal: Negative Urobilinogen NOR less than 1.0 mg/dL Microscopic Not Indicate CBC W/Automated Diff 11/22/[address] [address] [phone] CBC W/Automated Diff (SEE NOTE) 52 WBC [...] Lymph 7.2 % Low 25.0 - 40.0 Luna 5.8 % 3.0 - 8.0 Eos 0.7 % 0.0 - 7.0 Baso 0.1 % 0.0 - 2.0 %Ig 0.4 % High 0.0 - 0.0 %NRBC 0.0 % 0.0 - 0.0 #Neut 5.73 10^3/uL 2.00 - 6.90 #Lymph 0.48 10^3/uL Low 0.60 - 3.40 #Luna 0.39 10^3/uL 0.00 - 0.90 #Eos 0.05 10^3/uL 0.00 - 0.70 #Baso 0.01 10^3/uL 0.00 - 0.20 #Ig 0.03 10^3/uL 0.00 - 0.10 #NRBC 0.00 10^3/uL 0.00 - 0.00 Manual Diff NOT INDICATED RBC Morph NOT INDICATED Laboratory test finding 11/22/2020 [facility] [address] [place] [phone] Hgba1c 5.2 % 4.4 - 6.1 53 Iron 42 g/dL 42 - 135 Magnesium Serum 2.2 mg/dL 1.7 - 2.2 Comprehensive Metabolic Panel 11/22/2020 [facility] [address] [place] [address] [phone] Comprehensive Metabo (SEE NOTE) 54 Sodium 142 [...] GFR 56 mL/min 55 Cve Panel 11/22/[address] [address] [phone] Cve Panel (SEE NOTE) 56 Cholesterol 109 mg/dL Low 131 - 200 Triglycerides 45 mg/dL 35 - 160 HDL 45 mg/dL 29 - 86 LDL 66 mg/dL 65 - 175 Risk Factor 2.4 Low 3.4 - 4.9 LDL/HDL 1.47 1.00 - 3.55 57 Laboratory test finding 11/22/2020 [place] [address] [phone] TSH Highly Sensitive 3.34 uIU/mL 0.47 - 5.0 1 Pro-BNP 4405 pg/mL High 0 - 125 Urinalysis 07/24/2020 [place] 8549331 [phone] Urinalysis (SEE NOTE) 58, 59 Source R Color yellow Normal: Yellow Clarity clear Normal: Clear Spec [place] 1.015 1.001 - 1.030 pH 5 5 [...] Normal: None Seen Laboratory test finding 07/24/2020 [place] [address] [phone] PSA - Diagnostic 1.01 ng/mL 0.00 - 4.00 60 Cve Panel 07/24/2020 [place] 8549312 [phone] Cve Panel (SEE NOTE) 61 Cholesterol 133 mg/dL 131 - 200 Triglycerides 82 mg/dL 35 - 160 HDL 55 mg/dL 29 - 86 LDL 72 mg/dL 65 - 175 Risk Factor 2.4 Low 3.4 - 4.9 LDL/HDL 1.31 1.00 - 3.55 62 Basic Metabolic Panel 07/24/2020 [place] [id number] [phone] Basic Metabolic Pane (SEE NOTE) 63 Sodium [...] result was determined by "ECLIA", on the [employer] EDGAR 6000. Values obtained with different assay [...] Normal Procedures Date Code Description Status 12/24/2020 27776 Office/Outpatient Established [place] w MDM 20-29 Min Completed 12/23/2020 24900 Myocardial Perfusion,WM & Ef Com pleted 12/19/2020 66370 Office/Outpatient Established Mo d MDM 30-39 Min Completed 12/19/2020 44261 EKG Completed 12/17/2020 43356 Office/Outpatient Established Mo d MDM 30-39 Min Completed 12/12/2020 99421 Office/Outpatient Established Mo d MDM 30-39 Min Completed 11/26/2020 04269 Office/Outpatient Established Mo d MDM 30-39 Min Completed 11/26/2020 49307 Echocardiogram, Complete Complet ed 11/26/2020 22963 EKG Completed 11/22/2020 91612 Office/Outpatient Established Mo d MDM 30-39 Min Completed 10/22/2020 70432 Office/Outpatient Established Mo d MDM 30-39 Min Completed Encounters Type Date Location Provider Dx Diagnosis Office Visit 12/24/2020 11:30a [facility] Jon Elizondo M.D.,P. C. I11.9 Hypertensive heart disease without heart failure E78.5 Hyperlipidemia, unspecified I42.9 Cardiomyopathy, unspecified Office Visit 12/19/2020 10:15a [facility] Jon Elizondo M.D.,[facility] C. I11.9 Hypertensive heart disease without heart failure D50.9 Iron deficiency anemia, unsp ecified E78.5 Hyperlipidemia, unspecified I50.20 Unspecified systolic (conges tive) heart failure I49.49 Other premature depolarizati on Office Visit 12/17/2020 10:15a [facility] Jon Elizondo M.D.,[facility] C. I11.9 Hypertensive heart disease without heart failure K59.00 Constipation, unspecified I50.20 Unspecified systolic (conges tive) heart failure I42.9 Cardiomyopathy, unspecified Office Visit 12/12/2020 10:00a [facility] Jon Elizondo M.D[facility]. I11.9 Hypertensive heart disease without heart failure J43.9 Emphysema, unspecified Office Visit 11/26/2020 10:30a [facility] Jon Elizondo M.D[facility]. I50.20 Unspecified systolic (congestive) heart failure I11.9 Hypertensive heart disease w ithout heart failure J06.9 Acute upper respiratory infe ction, unspecified I42.9 Cardiomyopathy, unspecified I49.49 Other premature depolarizati on Office Visit 11/22/2020 10:00a [facility] Jon Elizondo M.D[facility]. I50.20 Unspecified systolic (congestive) heart failure I11.9 Hypertensive heart disease w ithout heart failure E78.5 Hyperlipidemia, unspecified Office Visit 10/22/2020 11:00a [facility] Jon Elizondo M.D.,[facility]. C. I11.9 Hypertensive heart disease without heart failure E78.5 Hyperlipidemia, unspecified I50.20 Unspecified systolic (conges tive) heart failure I95.9 Hypotension, unspecified Assessments Date Code Description Provider 12/24/2020 I11.9 Hypertensive heart disease witho me heart failure Jon [facility]izondo [facility] 12/24/2020 E78.5 Hyperlipidemia, unspecified Samreen Elizondo M.D[facility]. 12/24/2020 I42.9 Cardiomyopathy, unspecified Samreen Elizondo M.D[facility] 12/23/2020 I25.10 Atherosclerotic hear t disease of [place] coronary artery without angina pectoris Jon Elizondo [...] M.D.,P.C. 12/12/2020 I11.9 Hypertensive heart disease witho me heart failure Jon Elizondo [facility].D[facility] 12/12/2020 J43.9 Emphysema, unspecified Jon silva M.D[facility] 11/26/2020 I50.20 Unspecified systolic (congestive ) heart failure Jon Elizondo M.D[facility] 11/26/2020 I11.9 Hypertensive heart disease witho me heart failure Jon Elizondo [facility] 11/26/2020 J06.9 Acute upper respiratory infectio n, unspecified oJn Elizondo M.D.,[facility]. 11/26/2020 I42.9 Cardiomyopathy, unspecified Samreen Elizondo M.D[facility] 11/26/2020 I49.49 Other premature depolarization Sandra Elizondo M.D[facility]. 11/22/2020 I50.20 Unspecified systolic (congestive ) heart failure Jon Elizondo M.D[facility] 11/22/2020 I11.9 Hypertensive heart disease witho me heart failure Jon Elizondo M.D[facility] 11/22/2020 E78.5 Hyperlipidemia, unspecified Samreen Elizondo M.D[facility] 10/22/2020 I11.9 Hypertensive heart disease witho me heart failure Jon Elizondo [facility] 10/22/2020 E78.5 Hyperlipidemia, salmaified Samreen Elizondo M[facility] 10/22/2020 I50.20 Unspecified systolic (congestive ) heart failure Jon [facility]izondo [facility] 10/22/2020 I95.9 Hypotension, unspecified Jon greene M.D[facility] Plan of Treatment Future Appointment(s):* 01/23/2021 11:00 am - Jon Elizondo M[facility] at [facility] Referrals Refer to Reason for Referral Status Appt Date Mick Ching MD Please eval. and treat this patient for positive nuclear stress test, he needs a cardiac cath. Thank you. Created [address] [facility] [address] [place] [address] [phone]
--- OUTSIDE RECORDS SUMMARY | 2021-03-19 12:35 | CCD | Continuity of Care Document ---
Author Author Adebayo ARCHER P. C. Organization Unknown Address [address] [place] [id number] Phone [phone] Care Team Providers Care Welding Technician Name Role Phone Sami Kalyan [facility] AUTM Mick Ching MD AUTM [phone] JON ELIZONDO M.D. P.C. AUTM [phone] Social History Type Date Description Comments Sex Unknown Allergies and adverse reactions Active Allergies Criticality Reaction | Severity Comments Date Tolmetin Unable to assess criticality 03/28/2020 Medications Active Medications SIG Qnty Indications Ordering Provide r Date Wellbutrin SR 150mg Tablets ER 12H R 1 by mouth twice a day 60tarachele Elizondo M.D.,P.[facility]. 2020 Ipratropium [place]/Albuterol Sulfate 0.5-2.5(3)mg/3ML Solution inhale 1 vial via [...] twice a day 180tabs Jon Elizondo M.D.,P.C. [place] Number Two Extract 150mg Capsules take one tablet by mouth daily Jno Elizondo M.D.,P.C. Vitamin C 500mg Capsules ever [...] Result H/L Range Note Laboratory test finding 01/21/2021 [place] [address] [phone] Troponin T 0.07 NG/ML 0.00 - 0.10 1 Laboratory test finding 01/21/[address] [address] [phone] Troponin T 0.06 NG/ML 0.00 - 0.10 2 Laboratory test finding 01/21/[address] [address] [phone] Iron 48 g/dL 42 - 135 CBC W/Automated Diff 01/21/[address] [address] [phone] CBC W/Automated Diff (SEE NOTE) 3 WBC 5.5 10^3/uL 4.2 - 11.0 RBC [...] Lymph 10.9 % Low 25.0 - 40.0 [place] 7.1 % 3.0 - 8.0 Eos 2.2 % 0.0 - 7.0 Baso 0.5 % 0.0 - 2.0 %Ig 0.2 % High 0.0 - 0.0 %NRBC 0.0 % 0.0 - 0.0 #Neut 4.37 10^3/uL 2.00 - 6.90 #Lymph 0.60 10^3/uL 0.60 - 3.40 #[place] 0.39 10^3/uL 0.00 - 0.90 #Eos 0.12 10^3/uL 0.00 - 0.70 #Baso 0.03 10^3/uL 0.00 - 0.20 #Ig 0.01 10^3/uL 0.00 - 0.10 #NRBC 0.00 10^3/uL 0.00 - 0.00 Manual Diff NOT INDICATED RBC Morph SEE BELOW [place] 1+ Abnormal Normal: None Seen Poik 1+ Abnormal Normal: None Seen Hypo 1+ Abnormal Normal: None Seen 4 Te[place]rop 1+ Abnormal Normal: None Seen Ovalocytes 1+ Abnormal Normal: None Seen PLT Est NORMAL Normal: Normal 5 Comprehensive Metabolic Panel 01/21/2021 [facility] [address] [id number] [phone] Comprehensive Metabo (SEE NOTE) 6 Sodium 140 mEq/L 134 - 153 Potassium [...] 50 mL/min Afr Amer GFR >60 mL/min 7 Laboratory test finding 01/21/[address] [phone] Magnesium Serum 2.0 mg/dL 1.7 - 2.2 Alcohol Ethyl Blood 01/20/[address] [address] [phone] Alcohol 70.0 mg/dL Alcohol % 0.07 % High 0.00 - 0.01 8 CBC W/Automated Diff 01/20/[address] [address] [phone] CBC W/Automated Diff (SEE NOTE) 9 WBC 6.3 10^3/uL 4.2 - 11.0 RBC [...] Lymph 14.2 % Low 25.0 - 40.0 [place] 7.7 % 3.0 - 8.0 Eos 3.2 % 0.0 - 7.0 Baso 0.3 % 0.0 - 2.0 %Ig 0.3 % High 0.0 - 0.0 %NRBC 0.0 % 0.0 - 0.0 #Neut 4.66 10^3/uL 2.00 - 6.90 #Lymph 0.89 10^3/uL 0.60 - 3.40 #[place] 0.48 10^3/uL 0.00 - 0.90 #Eos 0.20 10^3/uL 0.00 - 0.70 #Baso 0.02 10^3/uL 0.00 - 0.20 #Ig 0.02 10^3/uL 0.00 - 0.10 #NRBC 0.00 10^3/uL 0.00 - 0.00 Manual Diff NOT INDICATED RBC Morph NOT INDICATED Laboratory test finding 01/20/2021 [facility] [address] [place] [address] [phone] Troponin T 0.03 NG/ML 0.00 - 0.10 10 Comprehensive Metabolic Panel 01/20/2021 [facility] [address] [place] [address] [phone] Comprehensive Metabo (SEE NOTE) 11 Sodium 140 [...] GFR >60 mL/min 12 Laboratory test finding 01/20/[address] [address] [phone] Pro-BNP 6632 pg/mL High 0 - 125 CBC W/Automated Diff 01/08/[address] [phone] CBC W/Automated Diff (SEE NOTE) 13 WBC 5.1 10^3/uL 4.2 - 11.0 RBC [...] Lymph 9.1 % Low 25.0 - 40.0 [place] 10.7 % High 3.0 - 8.0 Eos 3.2 % 0.0 - 7.0 Baso 0.8 % 0.0 - 2.0 %Ig 0.2 % High 0.0 - 0.0 %NRBC 0.0 % 0.0 - 0.0 #Neut 3.84 10^3/uL 2.00 - 6.90 #Lymph 0.46 10^3/uL Low 0.60 - 3.40 #[place] 0.54 10^3/uL 0.00 - 0.90 #Eos 0.16 10^3/uL 0.00 - 0.70 #Baso 0.04 10^3/uL 0.00 - 0.20 #Ig 0.01 10^3/uL 0.00 - 0.10 #NRBC 0.00 10^3/uL 0.00 - 0.00 Manual Diff NOT INDICATED RBC Morph NOT INDICATED Comprehensive Metabolic Panel 01/08/2021 [facility] [address] [place], [place] [id number] [phone] Comprehensive Metabo (SEE NOTE) 14 Sodium 139 mEq/L 134 - 153 Potassium [...] >60 mL/min Afr Amer GFR >60 mL/min 15 Comprehensive Metabolic Panel 01/07/2021 [facility] [address] [place] [address] [phone] Comprehensive Metabo (SEE NOTE) 16, 17 Sodium 139 mEq/L 134 - 153 Potassium [...] >60 mL/min Afr Amer GFR >60 mL/min 18 CBC W/Automated Diff 01/07/[address] [address] [phone] CBC W/Automated Diff (SEE NOTE) 19 WBC 5.0 10^3/uL 4.2 - 11.0 RBC [...] Lymph 10.9 % Low 25.0 - 40.0 [place] 9.1 % High 3.0 - 8.0 Eos 3.4 % 0.0 - 7.0 Baso 0.4 % 0.0 - 2.0 %Ig 0.4 % High 0.0 - 0.0 %NRBC 0.0 % 0.0 - 0.0 #Neut 3.77 10^3/uL 2.00 - 6.90 #Lymph 0.54 10^3/uL Low 0.60 - 3.40 #[place] 0.45 10^3/uL 0.00 - 0.90 #Eos 0.17 10^3/uL 0.00 - 0.70 #Baso 0.02 10^3/uL 0.00 - 0.20 #Ig 0.02 10^3/uL 0.00 - 0.10 #NRBC 0.00 10^3/uL 0.00 - 0.00 Manual Diff NOT INDICATED RBC Morph NOT INDICATED Laboratory test finding 01/07/[address] [address] [phone] Troponin T 0.02 NG/ML 0.00 - 0.10 20 CBC W/Automated Diff 01/06/[address] [address] [phone] CBC W/Automated Diff (SEE NOTE) 21 WBC 6.1 10^3/uL 4.2 - 11.0 RBC [...] Lymph 10.5 % Low 25.0 - 40.0 [place] 8.4 % High 3.0 - 8.0 Eos 2.3 % 0.0 - 7.0 Baso 0.3 % 0.0 - 2.0 %Ig 0.3 % High 0.0 - 0.0 %NRBC 0.0 % 0.0 - 0.0 #Neut 4.75 10^3/uL 2.00 - 6.90 #Lymph 0.64 10^3/uL 0.60 - 3.40 #[place] 0.51 10^3/uL 0.00 - 0.90 #Eos 0.14 10^3/uL 0.00 - 0.70 #Baso 0.02 10^3/uL 0.00 - 0.20 #Ig 0.02 10^3/uL 0.00 - 0.10 #NRBC 0.00 10^3/uL 0.00 - 0.00 Manual Diff NOT INDICATED RBC Morph NOT INDICATED Comprehensive Metabolic Panel 01/06/[address] [address] [phone] Comprehensive Metabo (SEE NOTE) 22 Sodium 141 mEq/L 134 - 153 Potassium [...] >60 mL/min Afr Amer GFR >60 mL/min 23 Laboratory test finding 01/06/2021 [place] [address] [phone] Iron 40 g/dL Low 42 - 135 Laboratory test finding 01/05/2021 [facility] [address] [place] [address] [phone] Magnesium Serum 1.8 mg/dL 1.7 - 2.2 CBC W/Automated Diff 01/05/[address] [address] [phone] CBC W/Automated Diff (SEE NOTE) 24 WBC 5.4 10^3/uL 4.2 - 11.0 RBC [...] Lymph 11.6 % Low 25.0 - 40.0 [place] 8.5 % High 3.0 - 8.0 Eos 1.7 % 0.0 - 7.0 Baso 0.6 % 0.0 - 2.0 %Ig 0.4 % High 0.0 - 0.0 %NRBC 0.0 % 0.0 - 0.0 #Neut 4.21 10^3/uL 2.00 - 6.90 #Lymph 0.63 10^3/uL 0.60 - 3.40 #[place] 0.46 10^3/uL 0.00 - 0.90 #Eos 0.09 10^3/uL 0.00 - 0.70 #Baso 0.03 10^3/uL 0.00 - 0.20 #Ig 0.02 10^3/uL 0.00 - 0.10 #NRBC 0.00 10^3/uL 0.00 - 0.00 Manual Diff NOT INDICATED RBC Morph NOT INDICATED Comprehensive Metabolic Panel 01/05/2021 [facility] [address] [place] [address] [phone] Comprehensive Metabo (SEE NOTE) 25 Sodium 141 mEq/L 134 - 153 Potassium [...] 54 mL/min Afr Amer GFR >60 mL/min 26 Laboratory test finding 01/04/2021 [facility] [address] [place] [address] [phone] Troponin T 0.02 NG/ML 0.00 - 0.10 27 Comprehensive Metabolic Panel 01/04/2021 [facility] [address] [place] [address] [phone] Comprehensive Metabo (SEE NOTE) 28 Sodium 142 mEq/L 134 - 153 Potassium [...] GFR >60 mL/min 29 Laboratory test finding 01/04/2021 [place] [address] [phone] Magnesium Serum 1.8 mg/dL 1.7 - 2.2 Iron 41 g/dL Low 42 - 135 Laboratory test finding 01/04/2021 [place] [address] [phone] Troponin T 0.02 NG/ML 0.00 - 0.10 30 Laboratory test finding 01/04/2021 [place] [phone] Potassium 4.1 mEq/L 3.6 - 5.0 CBC W/Automated Diff 01/04/2021 [place] [address] [phone] CBC W/Automated Diff (SEE NOTE) 31 WBC 5.9 10^3/uL 4.2 - 11.0 RBC [...] Lymph 12.8 % Low 25.0 - 40.0 [place] 8.0 % 3.0 - 8.0 Eos 2.1 % 0.0 - 7.0 Baso 0.3 % 0.0 - 2.0 %Ig 0.3 % High 0.0 - 0.0 %NRBC 0.0 % 0.0 - 0.0 #Neut 4.47 10^3/uL 2.00 - 6.90 #Lymph 0.75 10^3/uL 0.60 - 3.40 #[place] 0.47 10^3/uL 0.00 - 0.90 #Eos 0.12 10^3/uL 0.00 - 0.70 #Baso 0.02 10^3/uL 0.00 - 0.20 #Ig 0.02 10^3/uL 0.00 - 0.10 #NRBC 0.00 10^3/uL 0.00 - 0.00 Manual Diff NOT INDICATED RBC Morph NOT INDICATED Laboratory test finding 01/03/2021 [place] [address] [phone] Troponin T 0.02 NG/ML 0.00 - 0.10 32 Laboratory test finding 01/03/2021 [place] [address] [phone] Troponin T 0.02 NG/ML 0.00 - 0.10 33 CBC W/Automated Diff 01/03/2021 [place] [address] [phone] CBC W/Automated Diff (SEE NOTE) 34 WBC 6.3 10^3/uL 4.2 - 11.0 RBC [...] Lymph 8.7 % Low 25.0 - 40.0 [place] 6.6 % 3.0 - 8.0 Eos 0.9 % 0.0 - 7.0 Baso 0.3 % 0.0 - 2.0 %Ig 0.5 % High 0.0 - 0.0 %NRBC 0.0 % 0.0 - 0.0 #Neut 5.25 10^3/uL 2.00 - 6.90 #Lymph 0.55 10^3/uL Low 0.60 - 3.40 #[place] 0.42 10^3/uL 0.00 - 0.90 #Eos 0.06 10^3/uL 0.00 - 0.70 #Baso 0.02 10^3/uL 0.00 - 0.20 #Ig 0.03 10^3/uL 0.00 - 0.10 #NRBC 0.00 10^3/uL 0.00 - 0.00 Manual Diff NOT INDICATED RBC Morph NOT INDICATED Laboratory test finding 01/03/2021 [facility] [address] [place] [address] [phone] Troponin T 0.02 NG/ML 0.00 - 0.10 35 Pro-BNP 6929 pg/mL High 0 - 125 Comprehensive Metabolic Panel 01/03/2021 [facility] [address] [place] [address] [phone] Comprehensive Metabo (SEE NOTE) 36 Sodium 143 mEq/L 134 - 153 Potassium [...] GFR >60 mL/min 37 Laboratory test finding 01/03/[address] [address] [phone] Magnesium Serum 1.9 mg/dL 1.7 - 2.2 38 TSH Highly Sensitive 3.56 uIU/mL 0.47 - 5.01 T4 - Free 1.37 ng/dL 0.93 - 1.70 Cve Panel 12/12/[address] [address] [phone] Cve Panel (SEE NOTE) 39 Cholesterol 108 mg/dL Low 131 - 200 Triglycerides 52 mg/dL 35 - 160 HDL 40 mg/dL 29 - 86 LDL 68 mg/dL 65 - 175 Risk Factor 2.7 Low 3.4 - 4.9 LDL/HDL 1.70 1.00 - 3.55 40 CBC W/Automated Diff 12/12/[address] [address] [phone] CBC W/Automated Diff (SEE NOTE) 41 WBC 7.0 10^3/uL 4.2 - 11.0 RBC [...] Lymph 7.8 % Low 25.0 - 40.0 [place] 7.1 % 3.0 - 8.0 Eos 0.7 % 0.0 - 7.0 Baso 0.3 % 0.0 - 2.0 %Ig 0.4 % High 0.0 - 0.0 %NRBC 0.0 % 0.0 - 0.0 #Neut 5.88 10^3/uL 2.00 - 6.90 #Lymph 0.55 10^3/uL Low 0.60 - 3.40 #[place] 0.50 10^3/uL 0.00 - 0.90 #Eos 0.05 10^3/uL 0.00 - 0.70 #Baso 0.02 10^3/uL 0.00 - 0.20 #Ig 0.03 10^3/uL 0.00 - 0.10 #NRBC 0.00 10^3/uL 0.00 - 0.00 Manual Diff NOT INDICATED RBC Morph NOT INDICATED Comprehensive Metabolic Panel 12/12/2020 [facility] [address] [place] [address] [phone] Comprehensive Metabo (SEE NOTE) 42 Sodium 142 [...] 59 mL/min Afr Amer GFR >60 mL/min 43 Laboratory test finding 12/12/[address] [phone] Magnesium Serum 2.1 mg/dL 1.7 - 2.2 Pro-BNP 7997 pg/mL High 0 - 125 Urinalysis 11/22/[address] [address] [phone] Urinalysis (SEE NOTE) 44, 45 Source R Color yellow Normal: Yellow Clarity clear Normal: Clear Spec [place] 1.015 1.001 - 1.030 pH 5 5 - 9 Glucose NORM Normal: Negative Bilirubin NEG Normal: Negative Ketone NEG Normal: Negative Protein NEG Normal: Negative Nitrite NEG Normal: Negative Blood NEG Normal: Negative Leuk Est NEG Normal: Negative Urobilinogen NOR less than 1.0 mg/dL Microscopic Not Indicate CBC W/Automated Diff 11/22/[address] [address] [phone] CBC W/Automated Diff (SEE NOTE) 46 WBC 6.7 10^3/uL 4.2 - 11.0 RBC [...] Lymph 7.2 % Low 25.0 - 40.0 [place] 5.8 % 3.0 - 8.0 Eos 0.7 % 0.0 - 7.0 Baso 0.1 % 0.0 - 2.0 %Ig 0.4 % High 0.0 - 0.0 %NRBC 0.0 % 0.0 - 0.0 #Neut 5.73 10^3/uL 2.00 - 6.90 #Lymph 0.48 10^3/uL Low 0.60 - 3.40 #[place] 0.39 10^3/uL 0.00 - 0.90 #Eos 0.05 10^3/uL 0.00 - 0.70 #Baso 0.01 10^3/uL 0.00 - 0.20 #Ig 0.03 10^3/uL 0.00 - 0.10 #NRBC 0.00 10^3/uL 0.00 - 0.00 Manual Diff NOT INDICATED RBC Morph NOT INDICATED Laboratory test finding 11/22/2020 [facility] [address] [place] [address] [phone] Hgba1c 5.2 % 4.4 - 6.1 47 Iron 42 g/dL 42 - 135 Magnesium Serum 2.2 mg/dL 1.7 - 2.2 Comprehensive Metabolic Panel 11/22/2020 [facility] [address] [place] [phone] Comprehensive Metabo (SEE NOTE) 48 Sodium 142 [...] 46 mL/min Afr Amer GFR 56 mL/min 49 Cve Panel 11/22/2020 [place] [address] [phone] Cve Panel (SEE NOTE) 50 Cholesterol 109 mg/dL Low 131 - 200 Triglycerides 45 mg/dL 35 - 160 HDL 45 mg/dL 29 - 86 LDL 66 mg/dL 65 - 175 Risk Factor 2.4 Low 3.4 - 4.9 LDL/HDL 1.47 1.00 - 3.55 51 Laboratory test finding 11/22/2020 [place] [address] [phone] TSH Highly Sensitive 3.34 uIU/mL 0.47 - 5.0 1 Pro-BNP 4405 pg/mL High 0 - 125 Urinalysis 07/24/2020 [place] [address] [phone] Urinalysis (SEE NOTE) 52, 53 Source R Color yellow Normal: Yellow Clarity clear Normal: Clear Spec [place] 1.015 1.001 - 1.030 pH 5 5 [...] Normal: None Seen Laboratory test finding 07/24/2020 [place] [address] [phone] PSA - Diagnostic 1.01 ng/mL 0.00 - 4.00 54 Cve Panel 07/24/2020 [place] [address] [phone] Cve Panel (SEE NOTE) 55 Cholesterol 133 mg/dL 131 - 200 Triglycerides 82 mg/dL 35 - 160 HDL 55 mg/dL 29 - 86 LDL 72 mg/dL 65 - 175 Risk Factor 2.4 Low 3.4 - 4.9 LDL/HDL 1.31 1.00 - 3.55 56 Basic Metabolic Panel 07/24/2020 [place] [id number] [phone] Basic Metabolic Pane (SEE NOTE) 57 Sodium 139 mEq/L 134 - 153 Potassium [...] GFR >60 mL/min Non-Aa GFR 59 mL/min 58 1 TROPONIN T 0.1 ng/ml Recommended as the clinical th reshold value for Troponin T. 2 TROPONIN T 0.1 ng/ml Recommended as the clinical th reshold value for Troponin T. 3 COMPLETE BLOOD COUNT 4 { SICKLE CELL (NORMAL: NONE SEEN ) 5 COMMENT: _FEW_LARGE_PLATELET S_OBSERVED. 01/21/21.0452.LBS. . . 6 COMPREHENSIVE METABOLIC PANE L 7 Male GFR Interprentation 20-49 yrs >60 mL/min Normal 50-59 yrs >56 mL/min Normal 60-69 yrs >49 mL/min Normal 70-79yrs >42 mL/min Normal 80 and above >35 mL/min Normal Female GFR Interpretation 20-39 yrs >60 mL/min Normal 40-49 yrs >58 mL/min Normal 50-59 yrs >51 mL/min Normal 60-69 yrs >45 mL/min Normal 70-79 yrs >39 mL/min Normal 80 and above >32 mL/min Normal 8 *FOR MEDICAL PURPOSES ONLY* 9 COMPLETE BLOOD COUNT 10 TROPONIN T 0.1 ng/ml Recommended as the clinical th reshold value for Troponin T. 11 COMPREHENSIVE METABOLIC PANE L 12 Male [...] 80 and above >32 mL/min Normal 13 COMPLETE BLOOD COUNT 14 COMPREHENSIVE METABOLIC PANE L 15 Male GFR Interprentation 20-49 yrs >60 mL/min Normal 50-59 yrs >56 mL/min Normal 60-69 yrs >49 mL/min Normal 70-79yrs >42 mL/min Normal 80 and above >35 mL/min Normal Female GFR Interpretation 20-39 yrs >60 mL/min Normal 40-49 yrs >58 mL/min Normal 50-59 yrs >51 mL/min Normal 60-69 yrs >45 mL/min Normal 70-79 yrs >39 mL/min Normal 80 and above >32 mL/min Normal 16 Is patient fasting? N 17 COMPREHENSIVE METABOLIC PANE L 18 Male [...] 80 and above >32 mL/min Normal 19 COMPLETE BLOOD COUNT 20 TROPONIN T 0.1 ng/ml Recommended as the clinical th reshold value for Troponin T. 21 COMPLETE BLOOD COUNT 22 COMPREHENSIVE METABOLIC PANE L 23 Male GFR Interprentation 20-49 yrs >60 mL/min Normal 50-59 yrs >56 mL/min Normal 60-69 yrs >49 mL/min Normal 70-79yrs >42 mL/min Normal 80 and above >35 mL/min Normal Female GFR Interpretation 20-39 yrs >60 mL/min Normal 40-49 yrs >58 mL/min Normal 50-59 yrs >51 mL/min Normal 60-69 yrs >45 mL/min Normal 70-79 yrs >39 mL/min Normal 80 and above >32 mL/min Normal 24 COMPLETE BLOOD COUNT 25 COMPREHENSIVE METABOLIC PANE L 26 Male [...] 80 and above >32 mL/min Normal 27 TROPONIN T 0.1 ng/ml Recommended as the clinical th reshold value for Troponin T. 28 COMPREHENSIVE METABOLIC PANE L 29 Male [...] 80 and above >32 mL/min Normal 30 TROPONIN T 0.1 ng/ml Recommended as the clinical th reshold value for Troponin T. 31 COMPLETE BLOOD COUNT 32 TROPONIN T 0.1 ng/ml Recommended as the clinical th reshold value for Troponin T. 33 TROPONIN T 0.1 ng/ml Recommended as the clinical th reshold value for Troponin T. 34 COMPLETE BLOOD COUNT 35 TROPONIN T 0.1 ng/ml Recommended as the clinical th reshold value for Troponin T. 36 COMPREHENSIVE METABOLIC PANE L 37 Male [...] 80 and above >32 mL/min Normal 38 Can run on todays blood 39 LIPID PANEL 40 CVE RISK CHOL/HDL LDL/HDL MEN: 1/2 AVERAGE 3.43 1.00 AVERAGE 4.97 3.55 2X AVERAGE 9.55 6.25 3X AVERAGE 23.99 7.99 WOMEN: 1/2 AVERAGE 3.27 1.47 AVERAGE 4.44 3.22 2X AVERAGE 7.05 5.03 3X AVERAGE 11.04 6.14 41 COMPLETE BLOOD COUNT 42 COMPREHENSIVE METABOLIC PANE L 43 Male [...] 80 and above >32 mL/min Normal 44 {SOURCE: Random Void~NURSE COLLECTED? N 45 URINALYSIS 46 COMPLETE BLOOD COUNT 47 {A1] {HB] 48 COMPREHENSIVE METABOLIC PANE L 49 Male [...] 7.05 5.03 3X AVERAGE 11.04 6.14 52 FASTING~.~.~<DG1.3.1>R31.21</DG1.3.1><DG1.3.1>R31.21</DG1.3.1><DG1.3.1>R31.21</D G1.3.1><DG1. 53 URINALYSIS 54 \\BLDo\\PSA INTERPRETATION\\BLD x\\ The PSA assay should not be used alone for a screening test or diagnosis for presence or absence of malignant disease. Predictions of disease recurrence should not be based solely on values obtained from serial patient serum values. The PSA result was determined by "[employer]", on the [employer] EDGAR 6000. Values obtained with different assay methods or kits cannot be used interchangeably. 55 LIPID PANEL 56 CVE RISK CHOL/HDL LDL/HDL MEN: 1/2 AVERAGE 3.43 1.00 AVERAGE 4.97 3.55 2X AVERAGE 9.55 6.25 3X AVERAGE 23.99 7.99 WOMEN: 1/2 AVERAGE 3.27 1.47 AVERAGE 4.44 3.22 2X AVERAGE 7.05 5.03 3X AVERAGE 11.04 6.14 57 BASIC METABOLIC PANEL 58 Male GFR Interprentation 20-49 yrs >60 [...] Normal Procedures Date Code Description Status 12/24/2020 27780 Office/Outpatient Established Lo w MDM 20-29 Min Completed 12/23/2020 47731 Myocardial Perfusion,WM & Ef Com pleted 12/19/2020 95636 Office/Outpatient Established Mo d MDM 30-39 Min Completed 12/19/2020 76980 EKG Completed 12/17/2020 94905 Office/Outpatient Established Mo d MDM 30-39 Min Completed 12/12/2020 60572 Office/Outpatient Established Mo d MDM 30-39 Min Completed 11/26/2020 00822 Office/Outpatient Established Mo d MDM 30-39 Min Completed 11/26/2020 12989 Echocardiogram, Complete Complet ed 11/26/2020 33389 EKG Completed 11/22/2020 45013 Office/Outpatient Established Mo d MDM 30-39 Min Completed 10/22/2020 79608 Office/Outpatient Established Mo d MDM 30-39 Min Completed Encounters Type Date Location Provider Dx Diagnosis Office Visit 12/24/2020 11:30a [facility] Jon Elizondo M.D.,P. C[facility] I11.9 Hypertensive heart disease without heart failure E78.5 Hyperlipidemia, unspecified I42.9 Cardiomyopathy, unspecified Office Visit 12/19/2020 10:15a [facility] Jon Elizondo M.D.,[facility]. C. I11.9 Hypertensive heart disease without heart failure D50.9 Iron deficiency anemia, unsp ecified E78.5 Hyperlipidemia, unspecified I50.20 Unspecified systolic (conges tive) heart failure I49.49 Other premature depolarizati on Office Visit 12/17/2020 10:15a [facility] Jon Elizondo M.D.,[facility]. I11.9 Hypertensive heart disease without heart failure K59.00 Constipation, unspecified I50.20 Unspecified systolic (conges tive) heart failure I42.9 Cardiomyopathy, unspecified Office Visit 12/12/2020 10:00a [facility] Jon Elizondo M.D.,[facility]. I11.9 Hypertensive heart disease without heart failure J43.9 Emphysema, unspecified Office Visit 11/26/2020 10:30a [facility] Jon Elizondo M.D.,P. C. I50.20 Unspecified systolic (congestive) heart failure I11.9 [facility] J06.9 Acute upper respiratory infe ction, unspecified I42.9 Cardiomyopathy, unspecified I49.49 Other premature depolarizati on Office Visit 11/22/2020 10:00a [facility] Obed Elizondo M.D.,P. C. I50.20 Unspecified systolic (congestive) heart failure I11.9 [facility] E78.5 Hyperlipidemia, unspecified Office Visit 10/22/2020 11:00a [facility] Obed Elizondo M.D.,[facility]. C. I11.9 Hypertensive heart disease without heart failure E78.5 Hyperlipidemia, unspecified I50.20 Unspecified systolic (conges tive) heart failure I95.9 Hypotension, unspecified Assessments Date Code Description Provider 12/24/2020 I11.9 Hypertensive heart disease witho tn heart failure Jon Elizondo M.D[facility] 12/24/2020 E78.5 Hyperlipidemia, unspecified Samreen Elizondo M.D[facility]. 12/24/2020 I42.9 Cardiomyopathy, unspecified Samreen Elizondo M.D[facility] 12/23/2020 I25.10 Atherosclerotic hear t disease of [place] coronary artery without angina pectoris Jon Elizondo M.D[facility]. 12/19/2020 I11.9 Hypertensive heart disease witho tn heart failure Jon Elizondo M.D[facility] 12/19/2020 D50.9 Iron deficiency anemia, unspecif ied Jon Elizondo M.D[facility]. 12/19/2020 E78.5 Hyperlipidemia, unspecified Samreen Elizondo M.D[facility] 12/19/2020 I50.20 Unspecified systolic (congestive ) heart failure Jon Elizondo M.D[facility] 12/19/2020 I49.49 Other premature depolarization Sandra Elizondo M.D[facility]. 12/17/2020 I11.9 Hypertensive heart disease witho tn heart failure Jon Elizondo M.D[facility] 12/17/2020 K59.00 Constipation, unspecified Jon Elizondo M.D[facility] 12/17/2020 I50.20 Unspecified systolic (congestive ) heart failure Jon Elizondo M.D[facility] 12/17/2020 I42.9 Cardiomyopathy, unspecified Samreen Elizondo M.D[facility] 12/12/2020 I11.9 Hypertensive heart disease witho tn heart failure Jon Elizondo M.D[facility] 12/12/2020 J43.9 Emphysema, unspecified Jon silva [facility] 11/26/2020 I50.20 Unspecified systolic (congestive ) heart failure Jon [facility]ondo [facility] 11/26/2020 I11.9 Hypertensive heart disease witho tn heart failure Jon [facility]ondo [facility] 11/26/2020 J06.9 Acute upper respiratory infectio n, unspecified Jon [facility]izondo [facility] 11/26/2020 I42.9 Cardiomyopathy, unspecified Samreen [facility] 11/26/2020 I49.49 Other premature depolarization M sergey Elizondo [facility] 11/22/2020 I50.20 Unspecified systolic (congestive ) heart failure Jon [facility]ondo [facility] 11/22/2020 I11.9 Hypertensive heart disease witho tn heart failure Jon [facility]ondo [facility] 11/22/2020 E78.5 Hyperlipidemia, unspecified Samreen [facility] 10/22/2020 I11.9 Hypertensive heart disease witho tn heart failure Jon [facility]ondo [facility] 10/22/2020 E78.5 Hyperlipidemia, fabrizio Elizondo M[facility] 10/22/2020 I50.20 Unspecified systolic (congestive ) heart failure Jon [facility]ondo [facility] 10/22/2020 I95.9 Hypotension, unspecified Jon greene M[facility] Plan of Treatment Future Appointment(s):* 01/23/2021 11:00 am - Jon [facility]ondo [facility] at [facility] Referrals Refer to Dr Reason for Referral Status Appt Date Mick Ching MD Please eval. and treat this patient for positive nuclear stress test, he needs a cardiac cath. Thank you. Created [id number] [id number] [place] [id number] [phone]
--- OUTSIDE RECORDS SUMMARY | 2021-03-19 12:35 | CCD | Continuity of Care Document ---
Author Author Adebayo ARCHER P. C. Organization Unknown Address [address] [place] [address] Phone [phone] Care Team Providers Care Food Court Team Member Name Role Phone Sami Kalyan [facility] AUTM Mick Ching MD AUTM [phone] JON ELIZONDO M.D. P.C. AUTM [phone] Social History Type Date Description Comments Sex Unknown Allergies and adverse reactions Active Allergies Criticality Reaction | Severity Comments Date Tolmetin Unable to assess criticality 03/28/2020 Medications Active Medications SIG Qnty Indications Ordering Provide r Date Wellbutrin SR 150mg Tablets ER 12H R 1 by mouth twice a day 60tarachele Elizondo M.D.,[facility] 2020 Ipratropium [place]/Albuterol Sulfate 0.5-2.5(3)mg/3ML Solution inhale 1 vial via [...] twice a day 180tabs Jon Elizondo M.D[facility] [place] Extract 150mg Capsules take one tablet by [...] H/L Range Note Laboratory test finding 01/21/2021 [place] [address] [phone] Troponin T 0.07 NG/ML 0.00 - 0.10 1 Laboratory test finding 01/21/[address] [address] [phone] Troponin T 0.06 NG/ML 0.00 - 0.10 2 Laboratory test finding 01/21/[address] [address] [phone] Iron 48 g/dL 42 - 135 Vitamin B12 Serum 1269 pg/mL High 232 - 1245 CBC W/Automated Diff 01/21/[address] [place] [address] [phone] CBC W/Automated Diff (SEE NOTE) 3 WBC [...] Lymph 10.9 % Low 25.0 - 40.0 Lyon 7.1 % 3.0 - 8.0 Eos 2.2 % 0.0 - 7.0 Baso 0.5 % 0.0 - 2.0 %Ig 0.2 % High 0.0 - 0.0 %NRBC 0.0 % 0.0 - 0.0 #Neut 4.37 10^3/uL 2.00 - 6.90 #Lymph 0.60 10^3/uL 0.60 - 3.40 #Lyon 0.39 10^3/uL 0.00 - 0.90 #Eos 0.12 [...] Normal: Normal 5 Comprehensive Metabolic Panel 01/21/2021 [facility] [address] [place] [phone] Comprehensive Metabo (SEE NOTE) 6 Sodium 140 [...] >60 mL/min 7 Laboratory test finding 01/21/2021 [place] [address] [phone] Magnesium Serum 2.0 mg/dL 1.7 - 2.2 Alcohol Ethyl Blood 01/20/2021 [place] [phone] Alcohol 70.0 mg/dL Alcohol % 0.07 % High 0.00 - 0.01 8 CBC W/Automated Diff 01/20/2021 [place] [address] [phone] CBC W/Automated Diff (SEE NOTE) 9 WBC [...] Lymph 14.2 % Low 25.0 - 40.0 Lyon 7.7 % 3.0 - 8.0 Eos 3.2 % 0.0 - 7.0 Baso 0.3 % 0.0 - 2.0 %Ig 0.3 % High 0.0 - 0.0 %NRBC 0.0 % 0.0 - 0.0 #Neut 4.66 10^3/uL 2.00 - 6.90 #Lymph 0.89 10^3/uL 0.60 - 3.40 #Lyon 0.48 10^3/uL 0.00 - 0.90 #Eos 0.20 10^3/uL 0.00 - 0.70 #Baso 0.02 10^3/uL 0.00 - 0.20 #Ig 0.02 10^3/uL 0.00 - 0.10 #NRBC 0.00 10^3/uL 0.00 - 0.00 Manual Diff NOT INDICATED RBC Morph NOT INDICATED Laboratory test finding 01/20/2021 [facility] [address] [place] [address] [phone] Troponin T 0.03 NG/ML 0.00 - 0.10 10 Comprehensive Metabolic Panel 01/20/2021 [facility] [address] [place] [address] [phone] Comprehensive Metabo (SEE NOTE) 11 Sodium 140 [...] >60 mL/min 12 Laboratory test finding 01/20/[address] [address] [phone] Pro-BNP 6632 pg/mL High 0 - 125 CBC W/Automated Diff 01/08/[address] [address] [phone] CBC W/Automated Diff (SEE NOTE) 13 WBC [...] Lymph 9.1 % Low 25.0 - 40.0 Lyon 10.7 % High 3.0 - 8.0 Eos 3.2 % 0.0 - 7.0 Baso 0.8 % 0.0 - 2.0 %Ig 0.2 % High 0.0 - 0.0 %NRBC 0.0 % 0.0 - 0.0 #Neut 3.84 10^3/uL 2.00 - 6.90 #Lymph 0.46 10^3/uL Low 0.60 - 3.40 #Lyon 0.54 10^3/uL 0.00 - 0.90 #Eos 0.16 10^3/uL 0.00 - 0.70 #Baso 0.04 10^3/uL 0.00 - 0.20 #Ig 0.01 10^3/uL 0.00 - 0.10 #NRBC 0.00 10^3/uL 0.00 - 0.00 Manual Diff NOT INDICATED RBC Morph NOT INDICATED Comprehensive Metabolic Panel 01/08/2021 [facility] [address] [place] [address] [phone] Comprehensive Metabo (SEE NOTE) 14 Sodium 139 [...] >60 mL/min 15 Comprehensive Metabolic Panel 01/07/2021 [facility] [address] [place] [address] [phone] Comprehensive Metabo (SEE NOTE) 16, 17 Sodium [...] >60 mL/min 18 CBC W/Automated Diff 01/07/[address] [address] [phone] CBC W/Automated Diff (SEE NOTE) 19 WBC [...] Lymph 10.9 % Low 25.0 - 40.0 Lyon 9.1 % High 3.0 - 8.0 Eos 3.4 % 0.0 - 7.0 Baso 0.4 % 0.0 - 2.0 %Ig 0.4 % High 0.0 - 0.0 %NRBC 0.0 % 0.0 - 0.0 #Neut 3.77 10^3/uL 2.00 - 6.90 #Lymph 0.54 10^3/uL Low 0.60 - 3.40 #Lyon 0.45 10^3/uL 0.00 - 0.90 #Eos 0.17 10^3/uL 0.00 - 0.70 #Baso 0.02 10^3/uL 0.00 - 0.20 #Ig 0.02 10^3/uL 0.00 - 0.10 #NRBC 0.00 10^3/uL 0.00 - 0.00 Manual Diff NOT INDICATED RBC Morph NOT INDICATED Laboratory test finding 01/07/[address] [address] [phone] Troponin T 0.02 NG/ML 0.00 - 0.10 20 CBC W/Automated Diff 01/06/[address] [address] [phone] CBC W/Automated Diff (SEE NOTE) 21 WBC [...] Lymph 10.5 % Low 25.0 - 40.0 Lyon 8.4 % High 3.0 - 8.0 Eos 2.3 % 0.0 - 7.0 Baso 0.3 % 0.0 - 2.0 %Ig 0.3 % High 0.0 - 0.0 %NRBC 0.0 % 0.0 - 0.0 #Neut 4.75 10^3/uL 2.00 - 6.90 #Lymph 0.64 10^3/uL 0.60 - 3.40 #Lyon 0.51 10^3/uL 0.00 - 0.90 #Eos 0.14 10^3/uL 0.00 - 0.70 #Baso 0.02 10^3/uL 0.00 - 0.20 #Ig 0.02 10^3/uL 0.00 - 0.10 #NRBC 0.00 10^3/uL 0.00 - 0.00 Manual Diff NOT INDICATED RBC Morph NOT INDICATED Comprehensive Metabolic Panel 01/06/[address] [address] [phone] Comprehensive Metabo (SEE NOTE) 22 Sodium 141 [...] >60 mL/min 23 Laboratory test finding 01/06/2021 [place] [address] [phone] Iron 40 g/dL Low 42 - 135 Laboratory test finding 01/05/2021 [facility] [address] [place] [address] [phone] Magnesium Serum 1.8 mg/dL 1.7 - 2.2 CBC W/Automated Diff 01/05/2021 [place] [address] [phone] CBC W/Automated Diff (SEE NOTE) 24 WBC [...] Lymph 11.6 % Low 25.0 - 40.0 Lyon 8.5 % High 3.0 - 8.0 Eos 1.7 % 0.0 - 7.0 Baso 0.6 % 0.0 - 2.0 %Ig 0.4 % High 0.0 - 0.0 %NRBC 0.0 % 0.0 - 0.0 #Neut 4.21 10^3/uL 2.00 - 6.90 #Lymph 0.63 10^3/uL 0.60 - 3.40 #Lyon 0.46 10^3/uL 0.00 - 0.90 #Eos 0.09 10^3/uL 0.00 - 0.70 #Baso 0.03 10^3/uL 0.00 - 0.20 #Ig 0.02 10^3/uL 0.00 - 0.10 #NRBC 0.00 10^3/uL 0.00 - 0.00 Manual Diff NOT INDICATED RBC Morph NOT INDICATED Comprehensive Metabolic Panel 01/05/2021 [facility] [address] [place] [phone] Comprehensive Metabo (SEE NOTE) 25 Sodium 141 [...] >60 mL/min 26 Laboratory test finding 01/04/2021 [facility] [address] [place] [address] [phone] Troponin T 0.02 NG/ML 0.00 - 0.10 27 Comprehensive Metabolic Panel 01/04/2021 [facility] [address] [place] [phone] Comprehensive Metabo (SEE NOTE) 28 Sodium 142 [...] >60 mL/min 29 Laboratory test finding 01/04/[address] [address] [phone] Magnesium Serum 1.8 mg/dL 1.7 - 2.2 Iron 41 g/dL Low 42 - 135 Laboratory test finding 01/04/[address] [address] [phone] Troponin T 0.02 NG/ML 0.00 - 0.10 30 Laboratory test finding 01/04/[address] [address] [phone] Potassium 4.1 mEq/L 3.6 - 5.0 CBC W/Automated Diff 01/04/[address] [address] [phone] CBC W/Automated Diff (SEE NOTE) 31 WBC [...] Lymph 12.8 % Low 25.0 - 40.0 Lyon 8.0 % 3.0 - 8.0 Eos 2.1 % 0.0 - 7.0 Baso 0.3 % 0.0 - 2.0 %Ig 0.3 % High 0.0 - 0.0 %NRBC 0.0 % 0.0 - 0.0 #Neut 4.47 10^3/uL 2.00 - 6.90 #Lymph 0.75 10^3/uL 0.60 - 3.40 #Lyon 0.47 10^3/uL 0.00 - 0.90 #Eos 0.12 10^3/uL 0.00 - 0.70 #Baso 0.02 10^3/uL 0.00 - 0.20 #Ig 0.02 10^3/uL 0.00 - 0.10 #NRBC 0.00 10^3/uL 0.00 - 0.00 Manual Diff NOT INDICATED RBC Morph NOT INDICATED Laboratory test finding 01/03/2021 [facility] [address] [place] [address] [phone] Troponin T 0.02 NG/ML 0.00 - 0.10 32 Laboratory test finding 01/03/2021 [facility] [address] [place] [address] [phone] Troponin T 0.02 NG/ML 0.00 - 0.10 33 CBC W/Automated Diff 01/03/2021 [place] [address] [phone] CBC W/Automated Diff (SEE NOTE) 34 WBC [...] Lymph 8.7 % Low 25.0 - 40.0 Lyon 6.6 % 3.0 - 8.0 Eos 0.9 % 0.0 - 7.0 Baso 0.3 % 0.0 - 2.0 %Ig 0.5 % High 0.0 - 0.0 %NRBC 0.0 % 0.0 - 0.0 #Neut 5.25 10^3/uL 2.00 - 6.90 #Lymph 0.55 10^3/uL Low 0.60 - 3.40 #Lyon 0.42 10^3/uL 0.00 - 0.90 #Eos 0.06 10^3/uL 0.00 - 0.70 #Baso 0.02 10^3/uL 0.00 - 0.20 #Ig 0.03 10^3/uL 0.00 - 0.10 #NRBC 0.00 10^3/uL 0.00 - 0.00 Manual Diff NOT INDICATED RBC Morph NOT INDICATED Laboratory test finding 01/03/2021 [facility] [address] [place] [address] [phone] Troponin T 0.02 NG/ML 0.00 - 0.10 35 Pro-BNP 6929 pg/mL High 0 - 125 Comprehensive Metabolic Panel 01/03/2021 [facility] [address] [place] [address] [phone] Comprehensive Metabo (SEE NOTE) 36 Sodium 143 [...] >60 mL/min 37 Laboratory test finding 01/03/[address] [address] [phone] Magnesium Serum 1.9 mg/dL 1.7 - 2.2 38 TSH Highly Sensitive 3.56 uIU/mL 0.47 - 5.01 T4 - Free 1.37 ng/dL 0.93 - 1.70 Cve Panel 12/12/[address] [address] [phone] Cve Panel (SEE NOTE) 39 Cholesterol 108 mg/dL Low 131 - 200 Triglycerides 52 mg/dL 35 - 160 HDL 40 mg/dL 29 - 86 LDL 68 mg/dL 65 - 175 Risk Factor 2.7 Low 3.4 - 4.9 LDL/HDL 1.70 1.00 - 3.55 40 CBC W/Automated Diff 12/12/[address] [address] [phone] CBC W/Automated Diff (SEE NOTE) 41 WBC [...] Lymph 7.8 % Low 25.0 - 40.0 Lyon 7.1 % 3.0 - 8.0 Eos 0.7 % 0.0 - 7.0 Baso 0.3 % 0.0 - 2.0 %Ig 0.4 % High 0.0 - 0.0 %NRBC 0.0 % 0.0 - 0.0 #Neut 5.88 10^3/uL 2.00 - 6.90 #Lymph 0.55 10^3/uL Low 0.60 - 3.40 #Lyon 0.50 10^3/uL 0.00 - 0.90 #Eos 0.05 10^3/uL 0.00 - 0.70 #Baso 0.02 10^3/uL 0.00 - 0.20 #Ig 0.03 10^3/uL 0.00 - 0.10 #NRBC 0.00 10^3/uL 0.00 - 0.00 Manual Diff NOT INDICATED RBC Morph NOT INDICATED Comprehensive Metabolic Panel 12/12/2020 [facility] [address] [place] [address] [phone] Comprehensive Metabo (SEE NOTE) 42 Sodium 142 [...] >60 mL/min 43 Laboratory test finding 12/12/[address] [address] [phone] Magnesium Serum 2.1 mg/dL 1.7 - 2.2 Pro-BNP 7997 pg/mL High 0 - 125 Urinalysis 11/22/[address] [address] [phone] Urinalysis (SEE NOTE) 44, 45 Source R Color yellow Normal: Yellow Clarity clear Normal: Clear Spec [place] 1.015 1.001 - 1.030 pH 5 5 - 9 Glucose NORM Normal: Negative Bilirubin NEG Normal: Negative Ketone NEG Normal: Negative Protein NEG Normal: Negative Nitrite NEG Normal: Negative Blood NEG Normal: Negative Leuk Est NEG Normal: Negative Urobilinogen NOR less than 1.0 mg/dL Microscopic Not Indicate CBC W/Automated Diff 11/22/[address] [address] [phone] CBC W/Automated Diff (SEE NOTE) 46 WBC [...] Lymph 7.2 % Low 25.0 - 40.0 Lyon 5.8 % 3.0 - 8.0 Eos 0.7 % 0.0 - 7.0 Baso 0.1 % 0.0 - 2.0 %Ig 0.4 % High 0.0 - 0.0 %NRBC 0.0 % 0.0 - 0.0 #Neut 5.73 10^3/uL 2.00 - 6.90 #Lymph 0.48 10^3/uL Low 0.60 - 3.40 #Lyon 0.39 10^3/uL 0.00 - 0.90 #Eos 0.05 10^3/uL 0.00 - 0.70 #Baso 0.01 10^3/uL 0.00 - 0.20 #Ig 0.03 10^3/uL 0.00 - 0.10 #NRBC 0.00 10^3/uL 0.00 - 0.00 Manual Diff NOT INDICATED RBC Morph NOT INDICATED Laboratory test finding 11/22/2020 [facility] [address] [place] [address] [phone] Hgba1c 5.2 % 4.4 - 6.1 47 Iron 42 g/dL 42 - 135 Magnesium Serum 2.2 mg/dL 1.7 - 2.2 Comprehensive Metabolic Panel 11/22/2020 [facility] [address] [place] [address] [phone] Comprehensive Metabo (SEE NOTE) 48 Sodium 142 [...] GFR 56 mL/min 49 Cve Panel 11/22/[address] [address] [phone] Cve Panel (SEE NOTE) 50 Cholesterol 109 mg/dL Low 131 - 200 Triglycerides 45 mg/dL 35 - 160 HDL 45 mg/dL 29 - 86 LDL 66 mg/dL 65 - 175 Risk Factor 2.4 Low 3.4 - 4.9 LDL/HDL 1.47 1.00 - 3.55 51 Laboratory test finding 11/22/2020 [place] [phone] TSH Highly Sensitive 3.34 uIU/mL 0.47 - 5.0 1 Pro-BNP 4405 pg/mL High 0 - 125 Urinalysis 07/24/[address] [address] [phone] Urinalysis (SEE NOTE) 52, 53 Source R Color yellow Normal: Yellow Clarity clear Normal: Clear Spec [place] 1.015 1.001 - 1.030 pH 5 5 [...] Normal: None Seen Laboratory test finding 07/24/[address] [address] [phone] PSA - Diagnostic 1.01 ng/mL 0.00 - 4.00 54 Cve Panel 07/24/[address] [address] [phone] Cve Panel (SEE NOTE) 55 Cholesterol 133 mg/dL 131 - 200 Triglycerides 82 mg/dL 35 - 160 HDL 55 mg/dL 29 - 86 LDL 72 mg/dL 65 - 175 Risk Factor 2.4 Low 3.4 - 4.9 LDL/HDL 1.31 1.00 - 3.55 56 Basic Metabolic Panel 07/24/[address] [address] [phone] Basic Metabolic Pane (SEE NOTE) 57 Sodium [...] Normal Procedures Date Code Description Status 12/24/2020 04455 Office/Outpatient Established Lo w MDM 20-29 Min Completed 12/23/2020 66783 Myocardial Perfusion,WM & Ef Com pleted 12/19/2020 04701 Office/Outpatient Established Mo d MDM 30-39 Min Completed 12/19/2020 17719 EKG Completed 12/17/2020 11989 Office/Outpatient Established Mo d MDM 30-39 Min Completed 12/12/2020 60052 Office/Outpatient Established Mo d MDM 30-39 Min Completed 11/26/2020 87001 Office/Outpatient Established Mo d MDM 30-39 Min Completed 11/26/2020 28263 Echocardiogram, Complete Complet ed 11/26/2020 29740 EKG Completed 11/22/2020 91445 Office/Outpatient Established Mo d MDM 30-39 Min Completed 10/22/2020 16019 Office/Outpatient Established Mo d MDM 30-39 Min Completed Encounters Type Date Location Provider Dx Diagnosis Office Visit 12/24/2020 11:30a [facility] Jon Elizondo M.D.,[facility] C[facility] I11.9 Hypertensive heart disease without heart failure E78.5 Hyperlipidemia, unspecified I42.9 Cardiomyopathy, unspecified Office Visit 12/19/2020 10:15a [facility] Jon Elizondo M.D[facility]. C. I11.9 Hypertensive heart disease without heart failure D50.9 Iron deficiency anemia, unsp ecified E78.5 Hyperlipidemia, unspecified I50.20 Unspecified systolic (conges tive) heart failure I49.49 Other premature depolarizati on Office Visit 12/17/2020 10:15a [facility] Jon Elizondo M.D[facility]. C. I11.9 Hypertensive heart disease without heart failure K59.00 Constipation, unspecified I50.20 Unspecified systolic (conges tive) heart failure I42.9 Cardiomyopathy, unspecified Office Visit 12/12/2020 10:00a [facility] Jon Elizondo M.D[facility]. I11.9 Hypertensive heart disease without heart failure J43.9 Emphysema, unspecified Office Visit 11/26/2020 10:30a [facility] Jon Elizondo M.D[facility]. I50.20 Unspecified systolic (congestive) heart failure I11.9 Hypertensive heart disease w ithout heart failure J06.9 Acute upper respiratory infe ction, unspecified I42.9 Cardiomyopathy, unspecified I49.49 Other premature depolarizati on Office Visit 11/22/2020 10:00a [facility] Jon Elizondo M.D[facility]. I50.20 Unspecified systolic (congestive) heart failure I11.9 Hypertensive heart disease w ithout heart failure E78.5 Hyperlipidemia, unspecified Office Visit 10/22/2020 11:00a [facility] Jon Elizondo M.D[facility]. I11.9 Hypertensive heart disease without heart failure E78.5 Hyperlipidemia, unspecified I50.20 Unspecified systolic (conges tive) heart failure I95.9 Hypotension, unspecified Assessments Date Code Description Provider 12/24/2020 I11.9 Hypertensive heart disease witho ut heart failure Jon Elizondo [facility] 12/24/2020 E78.5 Hyperlipidemia, unspecified Samreen Elizondo M[facility] 12/24/2020 I42.9 Cardiomyopathy, unspecified Samreen Elizondo M[facility] 12/23/2020 I25.10 Atherosclerotic hear t disease of [place] coronary artery without angina pectoris Jon Elizondo M[facility] 12/19/2020 I11.9 Hypertensive heart disease witho dc heart failure Jon Elizondo M.D[facility] 12/19/2020 D50.9 [...] M.D.,P.C. 12/12/2020 I11.9 Hypertensive heart disease witho ut heart failure Jon Elizondo M.D[facility] 12/12/2020 J43.9 Emphysema, unspecified Jno silva M.D[facility]. 11/26/2020 I50.20 Unspecified systolic (congestive ) heart failure Jon Elizondo M.D[facility] 11/26/2020 I11.9 Hypertensive heart disease witho dc heart failure Jon Elizondo M[facility] 11/26/2020 J06.9 Acute upper respiratory infectio n, unspecified Jon Elizondo M[facility] 11/26/2020 I42.9 Cardiomyopathy, unspecified Samreen Elizondo M.D[facility] 11/26/2020 I49.49 Other premature depolarization M sergye Elizondo M.D[facility]. 11/22/2020 I50.20 Unspecified systolic (congestive ) heart failure Jon Elizondo M.D[facility] 11/22/2020 I11.9 Hypertensive heart disease witho dc heart failure Jon Elizondo M.D[facility] 11/22/2020 E78.5 Hyperlipidemia, unspecified Samreen Elizondo M[facility] 10/22/2020 I11.9 Hypertensive heart disease witho dc heart failure Jon Elizondo M[facility] 10/22/2020 E78.5 Hyperlipidemia, unspecified Samreen Elizondo M[facility] 10/22/2020 I50.20 Unspecified systolic (congestive ) heart failure Jon Elizondo [facility] 10/22/2020 I95.9 Hypotension, unspecified Jon greene M.D[facility] Plan of Treatment Future Appointment(s):* 01/23/2021 11:00 am - Jon Elizondo [facility] at [facility] Referrals Refer to Reason for Referral Status Appt Date Mick Ching MD Please eval. and treat this patient for positive nuclear stress test, he needs a cardiac cath. Thank you. Created [address] [place] [address] [phone]
--- OUTSIDE RECORDS SUMMARY | 2021-03-19 12:35 | CCD | Continuity of Care Document ---
Author Author Adebayo ARCHER P. C. Organization Unknown Address [address] [place] [address] Phone [phone] Care Team Providers Care Contract Technician Name Role Phone Sami [facility] AUTM Mick Ching MD AUTM [phone] JON ELIZONDO M.D. P.C. AUTM [phone] Social History Type Date Description Comments Sex Unknown Allergies and adverse reactions Active Allergies Criticality Reaction | Severity Comments Date Tolmetin Unable to assess criticality 03/28/2020 Medications Active Medications SIG Qnty Indications Ordering Provide r Date Wellbutrin SR 150mg Tablets ER 12H R 1 by mouth twice a day 60tarachele Elizondo M.D.,P.[facility]. 2020 Ipratropium [place]/Albuterol Sulfate 0.5-2.5(3)mg/3ML Solution inhale 1 vial via [...] twice a day 180tabs Jon Elizondo M.D.,P.C[facility] [place] Extract 150mg Capsules take one tablet by [...] H/L Range Note Laboratory test finding 01/21/2021 [place] [address] [phone] Troponin T 0.07 NG/ML 0.00 - 0.10 1 Laboratory test finding 01/21/2021 [place] [address] [phone] Troponin T 0.06 NG/ML 0.00 - 0.10 2 CBC W/Automated Diff 01/21/2021 [place] [address] [phone] CBC W/Automated Diff (SEE NOTE) 3 WBC [...] Lymph 10.9 % Low 25.0 - 40.0 [place] 7.1 % 3.0 - 8.0 Eos 2.2 % 0.0 - 7.0 Baso 0.5 % 0.0 - 2.0 %Ig 0.2 % High 0.0 - 0.0 %NRBC 0.0 % 0.0 - 0.0 #Neut 4.37 10^3/uL 2.00 - 6.90 #Lymph 0.60 10^3/uL 0.60 - 3.40 #[place] 0.39 10^3/uL 0.00 - 0.90 #Eos 0.12 [...] Normal: Normal 5 Comprehensive Metabolic Panel 01/21/2021 [facility] [address] [place] [address] [phone] Comprehensive Metabo (SEE NOTE) 6 Sodium 140 [...] >60 mL/min 7 Laboratory test finding 01/21/2021 [place] [address] [phone] Magnesium Serum 2.0 mg/dL 1.7 - 2.2 Alcohol Ethyl Blood 01/20/2021 [place] [id number] [phone] Alcohol 70.0 mg/dL Alcohol % 0.07 % High 0.00 - 0.01 8 CBC W/Automated Diff 01/20/2021 [place] [address] [phone] CBC W/Automated Diff (SEE NOTE) 9 WBC [...] Lymph 14.2 % Low 25.0 - 40.0 [place] 7.7 % 3.0 - 8.0 Eos 3.2 % 0.0 - 7.0 Baso 0.3 % 0.0 - 2.0 %Ig 0.3 % High 0.0 - 0.0 %NRBC 0.0 % 0.0 - 0.0 #Neut 4.66 10^3/uL 2.00 - 6.90 #Lymph 0.89 10^3/uL 0.60 - 3.40 #[place] 0.48 10^3/uL 0.00 - 0.90 #Eos 0.20 10^3/uL 0.00 - 0.70 #Baso 0.02 10^3/uL 0.00 - 0.20 #Ig 0.02 10^3/uL 0.00 - 0.10 #NRBC 0.00 10^3/uL 0.00 - 0.00 Manual Diff NOT INDICATED RBC Morph NOT INDICATED Laboratory test finding 01/20/2021 [facility] [address] [place], [place] [phone] Troponin T 0.03 NG/ML 0.00 - 0.10 10 Comprehensive Metabolic Panel 01/20/2021 [facility] [address] [place] [address] [phone] Comprehensive Metabo (SEE NOTE) 11 Sodium 140 [...] >60 mL/min 12 Laboratory test finding 01/20/[address] [address] [phone] Pro-BNP 6632 pg/mL High 0 - 125 CBC W/Automated Diff 01/08/[address] [address] [phone] CBC W/Automated Diff (SEE NOTE) 13 WBC [...] Lymph 9.1 % Low 25.0 - 40.0 [place] 10.7 % High 3.0 - 8.0 Eos 3.2 % 0.0 - 7.0 Baso 0.8 % 0.0 - 2.0 %Ig 0.2 % High 0.0 - 0.0 %NRBC 0.0 % 0.0 - 0.0 #Neut 3.84 10^3/uL 2.00 - 6.90 #Lymph 0.46 10^3/uL Low 0.60 - 3.40 #[place] 0.54 10^3/uL 0.00 - 0.90 #Eos 0.16 10^3/uL 0.00 - 0.70 #Baso 0.04 10^3/uL 0.00 - 0.20 #Ig 0.01 10^3/uL 0.00 - 0.10 #NRBC 0.00 10^3/uL 0.00 - 0.00 Manual Diff NOT INDICATED RBC Morph NOT INDICATED Comprehensive Metabolic Panel 01/08/2021 [facility] [address] [place] [address] [phone] Comprehensive Metabo (SEE NOTE) 14 Sodium 139 [...] >60 mL/min 15 Comprehensive Metabolic Panel 01/07/2021 [facility] [address] [phone] Comprehensive Metabo (SEE NOTE) 16, 17 Sodium [...] >60 mL/min 18 CBC W/Automated Diff 01/07/[address] [address] [phone] CBC W/Automated Diff (SEE NOTE) 19 WBC [...] Lymph 10.9 % Low 25.0 - 40.0 [place] 9.1 % High 3.0 - 8.0 Eos 3.4 % 0.0 - 7.0 Baso 0.4 % 0.0 - 2.0 %Ig 0.4 % High 0.0 - 0.0 %NRBC 0.0 % 0.0 - 0.0 #Neut 3.77 10^3/uL 2.00 - 6.90 #Lymph 0.54 10^3/uL Low 0.60 - 3.40 #[place] 0.45 10^3/uL 0.00 - 0.90 #Eos 0.17 10^3/uL 0.00 - 0.70 #Baso 0.02 10^3/uL 0.00 - 0.20 #Ig 0.02 10^3/uL 0.00 - 0.10 #NRBC 0.00 10^3/uL 0.00 - 0.00 Manual Diff NOT INDICATED RBC Morph NOT INDICATED Laboratory test finding 01/07/[address] [address] [phone] Troponin T 0.02 NG/ML 0.00 - 0.10 20 CBC W/Automated Diff 01/06/[address] [address] [phone] CBC W/Automated Diff (SEE NOTE) 21 WBC [...] Lymph 10.5 % Low 25.0 - 40.0 [place] 8.4 % High 3.0 - 8.0 Eos 2.3 % 0.0 - 7.0 Baso 0.3 % 0.0 - 2.0 %Ig 0.3 % High 0.0 - 0.0 %NRBC 0.0 % 0.0 - 0.0 #Neut 4.75 10^3/uL 2.00 - 6.90 #Lymph 0.64 10^3/uL 0.60 - 3.40 #[place] 0.51 10^3/uL 0.00 - 0.90 #Eos 0.14 10^3/uL 0.00 - 0.70 #Baso 0.02 10^3/uL 0.00 - 0.20 #Ig 0.02 10^3/uL 0.00 - 0.10 #NRBC 0.00 10^3/uL 0.00 - 0.00 Manual Diff NOT INDICATED RBC Morph NOT INDICATED Comprehensive Metabolic Panel 01/06/2021 [facility] [address] [place] [address] [phone] Comprehensive Metabo (SEE NOTE) 22 Sodium 141 [...] >60 mL/min 23 Laboratory test finding 01/06/2021 [facility] [address] [place] [address] [phone] Iron 40 g/dL Low 42 - 135 Laboratory test finding 01/05/[address] [address] [phone] Magnesium Serum 1.8 mg/dL 1.7 - 2.2 CBC W/Automated Diff 01/05/[address] [address] [phone] CBC W/Automated Diff (SEE NOTE) 24 WBC [...] Lymph 11.6 % Low 25.0 - 40.0 [place] 8.5 % High 3.0 - 8.0 Eos 1.7 % 0.0 - 7.0 Baso 0.6 % 0.0 - 2.0 %Ig 0.4 % High 0.0 - 0.0 %NRBC 0.0 % 0.0 - 0.0 #Neut 4.21 10^3/uL 2.00 - 6.90 #Lymph 0.63 10^3/uL 0.60 - 3.40 #[place] 0.46 10^3/uL 0.00 - 0.90 #Eos 0.09 10^3/uL 0.00 - 0.70 #Baso 0.03 10^3/uL 0.00 - 0.20 #Ig 0.02 10^3/uL 0.00 - 0.10 #NRBC 0.00 10^3/uL 0.00 - 0.00 Manual Diff NOT INDICATED RBC Morph NOT INDICATED Comprehensive Metabolic Panel 01/05/2021 [facility] [address] [place] [address] [phone] Comprehensive Metabo (SEE NOTE) 25 Sodium 141 [...] >60 mL/min 26 Laboratory test finding 01/04/2021 [facility] [address] [place] [phone] Troponin T 0.02 NG/ML 0.00 - 0.10 27 Comprehensive Metabolic Panel 01/04/2021 [facility] [address] [place] [address] [phone] Comprehensive Metabo (SEE NOTE) 28 Sodium 142 [...] >60 mL/min 29 Laboratory test finding 01/04/2021 [place] [address] [phone] Magnesium Serum 1.8 mg/dL 1.7 - 2.2 Iron 41 g/dL Low 42 - 135 Laboratory test finding 01/04/2021 [place] [address] [phone] Troponin T 0.02 NG/ML 0.00 - 0.10 30 Laboratory test finding 01/04/2021 [place] [phone] Potassium 4.1 mEq/L 3.6 - 5.0 CBC W/Automated Diff 01/04/2021 [place] [address] [phone] CBC W/Automated Diff (SEE NOTE) 31 WBC [...] Lymph 12.8 % Low 25.0 - 40.0 [place] 8.0 % 3.0 - 8.0 Eos 2.1 % 0.0 - 7.0 Baso 0.3 % 0.0 - 2.0 %Ig 0.3 % High 0.0 - 0.0 %NRBC 0.0 % 0.0 - 0.0 #Neut 4.47 10^3/uL 2.00 - 6.90 #Lymph 0.75 10^3/uL 0.60 - 3.40 #[place] 0.47 10^3/uL 0.00 - 0.90 #Eos 0.12 10^3/uL 0.00 - 0.70 #Baso 0.02 10^3/uL 0.00 - 0.20 #Ig 0.02 10^3/uL 0.00 - 0.10 #NRBC 0.00 10^3/uL 0.00 - 0.00 Manual Diff NOT INDICATED RBC Morph NOT INDICATED Laboratory test finding 01/03/2021 [place] [address] [phone] Troponin T 0.02 NG/ML 0.00 - 0.10 32 Laboratory test finding 01/03/2021 [place] [address] [phone] Troponin T 0.02 NG/ML 0.00 - 0.10 33 CBC W/Automated Diff 01/03/2021 [place] [address] [phone] CBC W/Automated Diff (SEE NOTE) 34 WBC [...] Lymph 8.7 % Low 25.0 - 40.0 [place] 6.6 % 3.0 - 8.0 Eos 0.9 % 0.0 - 7.0 Baso 0.3 % 0.0 - 2.0 %Ig 0.5 % High 0.0 - 0.0 %NRBC 0.0 % 0.0 - 0.0 #Neut 5.25 10^3/uL 2.00 - 6.90 #Lymph 0.55 10^3/uL Low 0.60 - 3.40 #[place] 0.42 10^3/uL 0.00 - 0.90 #Eos 0.06 10^3/uL 0.00 - 0.70 #Baso 0.02 10^3/uL 0.00 - 0.20 #Ig 0.03 10^3/uL 0.00 - 0.10 #NRBC 0.00 10^3/uL 0.00 - 0.00 Manual Diff NOT INDICATED RBC Morph NOT INDICATED Laboratory test finding 01/03/2021 [facility] [address] [place] [address] [phone] Troponin T 0.02 NG/ML 0.00 - 0.10 35 Pro-BNP 6929 pg/mL High 0 - 125 Comprehensive Metabolic Panel 01/03/2021 [facility] [address] [place], [place] [id number] [phone] Comprehensive Metabo (SEE NOTE) 36 Sodium 143 [...] >60 mL/min 37 Laboratory test finding 01/03/[address] [address] [phone] Magnesium Serum 1.9 mg/dL 1.7 - 2.2 38 TSH Highly Sensitive 3.56 uIU/mL 0.47 - 5.01 T4 - Free 1.37 ng/dL 0.93 - 1.70 Cve Panel 12/12/[address] [address] [phone] Cve Panel (SEE NOTE) 39 Cholesterol 108 mg/dL Low 131 - 200 Triglycerides 52 mg/dL 35 - 160 HDL 40 mg/dL 29 - 86 LDL 68 mg/dL 65 - 175 Risk Factor 2.7 Low 3.4 - 4.9 LDL/HDL 1.70 1.00 - 3.55 40 CBC W/Automated Diff 12/12/[address] [address] [phone] CBC W/Automated Diff (SEE NOTE) 41 WBC [...] Lymph 7.8 % Low 25.0 - 40.0 [place] 7.1 % 3.0 - 8.0 Eos 0.7 % 0.0 - 7.0 Baso 0.3 % 0.0 - 2.0 %Ig 0.4 % High 0.0 - 0.0 %NRBC 0.0 % 0.0 - 0.0 #Neut 5.88 10^3/uL 2.00 - 6.90 #Lymph 0.55 10^3/uL Low 0.60 - 3.40 #[place] 0.50 10^3/uL 0.00 - 0.90 #Eos 0.05 10^3/uL 0.00 - 0.70 #Baso 0.02 10^3/uL 0.00 - 0.20 #Ig 0.03 10^3/uL 0.00 - 0.10 #NRBC 0.00 10^3/uL 0.00 - 0.00 Manual Diff NOT INDICATED RBC Morph NOT INDICATED Comprehensive Metabolic Panel 12/12/2020 [facility] [address] [place], [place] [id number] [phone] Comprehensive Metabo (SEE NOTE) 42 Sodium 142 [...] >60 mL/min 43 Laboratory test finding 12/12/[address] [address] [phone] Magnesium Serum 2.1 mg/dL 1.7 - 2.2 Pro-BNP 7997 pg/mL High 0 - 125 Urinalysis 11/22/[address] [address] [phone] Urinalysis (SEE NOTE) 44, 45 Source R Color yellow Normal: Yellow Clarity clear Normal: Clear Spec [place] 1.015 1.001 - 1.030 pH 5 5 - 9 Glucose NORM Normal: Negative Bilirubin NEG Normal: Negative Ketone NEG Normal: Negative Protein NEG Normal: Negative Nitrite NEG Normal: Negative Blood NEG Normal: Negative Leuk Est NEG Normal: Negative Urobilinogen NOR less than 1.0 mg/dL Microscopic Not Indicate CBC W/Automated Diff 11/22/[address] [address] [phone] CBC W/Automated Diff (SEE NOTE) 46 WBC [...] Lymph 7.2 % Low 25.0 - 40.0 [place] 5.8 % 3.0 - 8.0 Eos 0.7 % 0.0 - 7.0 Baso 0.1 % 0.0 - 2.0 %Ig 0.4 % High 0.0 - 0.0 %NRBC 0.0 % 0.0 - 0.0 #Neut 5.73 10^3/uL 2.00 - 6.90 #Lymph 0.48 10^3/uL Low 0.60 - 3.40 #[place] 0.39 10^3/uL 0.00 - 0.90 #Eos 0.05 10^3/uL 0.00 - 0.70 #Baso 0.01 10^3/uL 0.00 - 0.20 #Ig 0.03 10^3/uL 0.00 - 0.10 #NRBC 0.00 10^3/uL 0.00 - 0.00 Manual Diff NOT INDICATED RBC Morph NOT INDICATED Laboratory test finding 11/22/2020 [facility] [address] [place] [address] [phone] Hgba1c 5.2 % 4.4 - 6.1 47 Iron 42 g/dL 42 - 135 Magnesium Serum 2.2 mg/dL 1.7 - 2.2 Comprehensive Metabolic Panel 11/22/2020 [facility] [address] [place] [address] [phone] Comprehensive Metabo (SEE NOTE) 48 Sodium 142 [...] GFR 56 mL/min 49 Cve Panel 11/22/[address] [address] [phone] Cve Panel (SEE NOTE) 50 Cholesterol 109 mg/dL Low 131 - 200 Triglycerides 45 mg/dL 35 - 160 HDL 45 mg/dL 29 - 86 LDL 66 mg/dL 65 - 175 Risk Factor 2.4 Low 3.4 - 4.9 LDL/HDL 1.47 1.00 - 3.55 51 Laboratory test finding 11/22/2020 [place] [address] [phone] TSH Highly Sensitive 3.34 uIU/mL 0.47 - 5.0 1 Pro-BNP 4405 pg/mL High 0 - 125 Urinalysis 07/24/2020 [place] [address] [phone] Urinalysis (SEE NOTE) 52, 53 Source R Color yellow Normal: Yellow Clarity clear Normal: Clear Spec [place] 1.015 1.001 - 1.030 pH 5 5 [...] Normal: None Seen Laboratory test finding 07/24/[address] [address] [phone] PSA - Diagnostic 1.01 ng/mL 0.00 - 4.00 54 Cve Panel 07/24/[address] [address] [phone] Cve Panel (SEE NOTE) 55 Cholesterol 133 mg/dL 131 - 200 Triglycerides 82 mg/dL 35 - 160 HDL 55 mg/dL 29 - 86 LDL 72 mg/dL 65 - 175 Risk Factor 2.4 Low 3.4 - 4.9 LDL/HDL 1.31 1.00 - 3.55 56 Basic Metabolic Panel 07/24/[address] [address] [phone] Basic Metabolic Pane (SEE NOTE) 57 Sodium [...] NONE SEEN ) 5 COMMENT: _FEW_LARGE_PLATELET S_OBSERVED. 01/21/210452.LBS. . . 6 COMPREHENSIVE METABOLIC PANE L [...] Normal Procedures Date Code Description Status 12/24/2020 33496 Office/Outpatient Established Lo w MDM 20-29 Min Completed 12/23/2020 04240 Myocardial Perfusion,WM & Ef Com pleted 12/19/2020 72429 Office/Outpatient Established Mo d MDM 30-39 Min Completed 12/19/2020 34976 EKG Completed 12/17/2020 67963 Office/Outpatient Established Mo d MDM 30-39 Min Completed 12/12/2020 39747 Office/Outpatient Established Mo d MDM 30-39 Min Completed 11/26/2020 95124 Office/Outpatient Established Mo d MDM 30-39 Min Completed 11/26/2020 22051 Echocardiogram, Complete Complet ed 11/26/2020 52000 EKG Completed 11/22/2020 37917 Office/Outpatient Established Mo d MDM 30-39 Min Completed 10/22/2020 85742 Office/Outpatient Established Mo d [facility] 30-39 Min Completed Encounters Type Date Location Provider Dx Diagnosis Office Visit 12/24/2020 11:30a [facility] Jon Elizondo M.D.,P. C. I11.9 Hypertensive heart disease without heart failure E78.5 Hyperlipidemia, unspecified I42.9 Cardiomyopathy, unspecified Office Visit 12/19/2020 10:15a [facility] Jon Elizondo M.D.,P. C. I11.9 Hypertensive heart disease without heart failure D50.9 Iron deficiency anemia, unsp ecified E78.5 Hyperlipidemia, unspecified I50.20 Unspecified systolic (conges tive) heart failure I49.49 Other premature depolarizati on Office Visit 12/17/2020 10:15a [facility] Jon Elizondo M.D.,P. C. I11.9 Hypertensive heart disease without heart failure K59.00 Constipation, unspecified I50.20 Unspecified systolic (conges tive) heart failure I42.9 Cardiomyopathy, unspecified Office Visit 12/12/2020 10:00a [facility] Jon Elizondo M.D.,[facility]. C. I11.9 Hypertensive heart disease without heart failure J43.9 Emphysema, unspecified Office Visit 11/26/2020 10:30a [facility] Jon Elizondo M.D.,P. C. I50.20 Unspecified systolic (congestive) heart failure I11.9 [facility] J06.9 Acute upper respiratory infe ction, unspecified I42.9 Cardiomyopathy, unspecified I49.49 Other premature depolarizati on Office Visit 11/22/2020 10:00a [facility] Jon Elizondo M.D.,P. C. I50.20 Unspecified systolic (congestive) heart failure I11.9 Hypertensive heart disease w ithout heart failure E78.5 Hyperlipidemia, unspecified Office Visit 10/22/2020 11:00a [facility] Jon Elizondo M.D.,P. C. I11.9 Hypertensive heart disease without heart failure E78.5 Hyperlipidemia, unspecified I50.20 Unspecified systolic (conges tive) heart failure I95.9 Hypotension, unspecified Assessments Date Code Description Provider 12/24/2020 I11.9 Hypertensive heart disease witho hi heart failure Jon Elizondo M.D[facility]. 12/24/2020 E78.5 Hyperlipidemia, unspecified Samreen Elizondo M.D.,P.C. 12/24/2020 I42.9 Cardiomyopathy, unspecified Samreen Elizondo M.D[facility]P.[facility]. 12/23/2020 I25.10 Atherosclerotic hear t disease of [place] coronary artery without angina pectoris Jon Elizondo M.D[facility]. 12/19/2020 I11.9 Hypertensive heart disease witho hi heart failure Jon Elizondo M.D.,[facility]. 12/19/2020 D50.9 Iron deficiency anemia, unspecif ied Jon Elizondo M.D.,[facility]. 12/19/2020 E78.5 Hyperlipidemia, unspecified Samreen Elizondo M.D.,P.C. 12/19/2020 I50.20 Unspecified systolic (congestive ) heart failure Jon Elizondo M.D[facility]. 12/19/2020 I49.49 Other premature depolarization Sandra Elizondo M.D.,P.C. 12/17/2020 I11.9 Hypertensive heart disease witho hi heart failure Jon Elizondo M.D[facility]. 12/17/2020 K59.00 Constipation, unspecified Jon Elizondo M.D[facility] 12/17/2020 I50.20 Unspecified systolic (congestive ) heart failure Jon Elizondo M.D[facility]. 12/17/2020 I42.9 Cardiomyopathy, unspecified Samreen Elizondo M.D[facility]. 12/12/2020 I11.9 Hypertensive heart disease witho hi heart failure Jno Elizondo M.D.,P.C. 12/12/2020 J43.9 Emphysema, unspecified Jon silva M.D[facility]. 11/26/2020 I50.20 Unspecified systolic (congestive ) heart failure Jon Elizondo M.D[facility] 11/26/2020 I11.9 Hypertensive heart disease witho hi heart failure Jon Elizondo M.D[facility] 11/26/2020 J06.9 Acute upper respiratory infectio n, unspecified Jon Elizondo M.D[facility] 11/26/2020 I42.9 Cardiomyopathy, unspecified Samreen Elizondo M.D[facility]P.[facility]. 11/26/2020 I49.49 Other premature depolarization M sergey Elizondo M.D[facility]. 11/22/2020 I50.20 Unspecified systolic (congestive ) heart failure Jon Elizondo M.D[facility]. 11/22/2020 I11.9 Hypertensive heart disease witho hi heart failure Jon Elizondo M.D[facility]. 11/22/2020 E78.5 Hyperlipidemia, unspecified Samreen Elizondo M.D[facility]P.[facility]. 10/22/2020 I11.9 Hypertensive heart disease witho hi heart failure Jon Elizondo M.D[facility] 10/22/2020 E78.5 Hyperlipidemia, salmaified Samreen Elizondo M.D[facility]P.[facility]. 10/22/2020 I50.20 Unspecified systolic (congestive ) heart failure Jon Elizondo M.D[facility] 10/22/2020 I95.9 Hypotension, unspecified Jon greene M.D.,[facility] Plan of Treatment Future Appointment(s):* 01/23/2021 11:00 am - Jon Elizondo [facility] at [facility] Referrals Refer to Dr Reason for Referral Status Appt Date Mick Ching MD Please eval. and treat this patient for positive nuclear stress test, he needs a cardiac cath. Thank you. Created [address] [facility] [address] [place] [address] [phone]
--- OUTSIDE RECORDS SUMMARY | 2021-03-19 12:36 | CCD | Continuity of Care Document ---
Author Author Adebayo ARCHER P. C. Organization Unknown Address [address] [place] [id number] Phone [phone] Care Team Providers Care Beamster Name Role Phone Sami Kalyan [facility] AUTM [phone] Mick Ching MD AUTM [phone] JON ELIZONDO M.D. P.C. AUTM [phone] Social History Type Date Description Comments Sex Unknown Allergies and adverse reactions Active Allergies Criticality Reaction | Severity Comments Date Tolmetin Unable to assess criticality 03/28/2020 Medications Active Medications SIG Qnty Indications Ordering Provide r Date Wellbutrin SR 150mg Tablets ER 12H R 1 by mouth twice a day 60tarachele Elizondo M.D.,[facility] 2020 Ipratropium [place]/Albuterol Sulfate 0.5-2.5(3)mg/3ML Solution inhale 1 vial via [...] twice a day 180tabs Jon Elizondo M.D[facility]P.C[facility] [place] Extract 150mg Capsules take one tablet by [...] Date Facility Test Result H/L Range Note Comprehensive Metabolic Panel 01/21/[address] [address] [phone] Comprehensive Metabo (SEE NOTE) 1 Sodium 140 mEq/L 134 - 153 Potassium [...] 50 mL/min Afr Amer GFR >60 mL/min 2 Laboratory test finding 01/21/[address] [id number] [phone] Troponin T 0.07 NG/ML 0.00 - 0.10 3 CBC W/Automated Diff 01/21/[address] [address] [phone] CBC W/Automated Diff (SEE NOTE) 4 WBC 5.5 10^3/uL 4.2 - 11.0 RBC [...] Lymph 10.9 % Low 25.0 - 40.0 [place]ata 7.1 % 3.0 - 8.0 Eos 2.2 % 0.0 - 7.0 Baso 0.5 % 0.0 - 2.0 %Ig 0.2 % High 0.0 - 0.0 %NRBC 0.0 % 0.0 - 0.0 #Neut 4.37 10^3/uL 2.00 - 6.90 #Lymph 0.60 10^3/uL 0.60 - 3.40 #Zapata 0.39 10^3/uL 0.00 - 0.90 #Eos 0.12 10^3/uL 0.00 - 0.70 #Baso 0.03 10^3/uL 0.00 - 0.20 #Ig 0.01 10^3/uL 0.00 - 0.10 #NRBC 0.00 10^3/uL 0.00 - 0.00 Manual Diff NOT INDICATED RBC Morph SEE BELOW Aniso 1+ Abnormal Normal: None Seen Poik 1+ Abnormal Normal: None Seen Hypo 1+ Abnormal Normal: None Seen 5 Teardrop 1+ Abnormal Normal: None Seen Ovalocytes 1+ Abnormal Normal: None Seen PLT Est NORMAL Normal: Normal 6 Laboratory test finding 01/21/2021 [place] [address] [phone] Magnesium Serum 2.0 mg/dL 1.7 - 2.2 Alcohol Ethyl Blood 01/20/2021 [place] [address] [phone] Alcohol 70.0 mg/dL Alcohol % 0.07 % High 0.00 - 0.01 7 CBC W/Automated Diff 01/20/2021 [place] [address] [phone] CBC W/Automated Diff (SEE NOTE) 8 WBC 6.3 10^3/uL 4.2 - 11.0 RBC [...] Lymph 14.2 % Low 25.0 - 40.0 [place] 7.7 % 3.0 - 8.0 Eos 3.2 % 0.0 - 7.0 Baso 0.3 % 0.0 - 2.0 %Ig 0.3 % High 0.0 - 0.0 %NRBC 0.0 % 0.0 - 0.0 #Neut 4.66 10^3/uL 2.00 - 6.90 #Lymph 0.89 10^3/uL 0.60 - 3.40 #Zapata 0.48 10^3/uL 0.00 - 0.90 #Eos 0.20 10^3/uL 0.00 - 0.70 #Baso 0.02 10^3/uL 0.00 - 0.20 #Ig 0.02 10^3/uL 0.00 - 0.10 #NRBC 0.00 10^3/uL 0.00 - 0.00 Manual Diff NOT INDICATED RBC Morph NOT INDICATED Laboratory test finding 01/20/2021 [facility] [address] [place] [address] [phone] Troponin T 0.03 NG/ML 0.00 - 0.10 9 Comprehensive Metabolic Panel 01/20/2021 [facility] [address] [place] [address] [phone] Comprehensive Metabo (SEE NOTE) 10 Sodium 140 [...] 50 mL/min Afr Amer GFR >60 mL/min 11 Laboratory test finding [facility]/20[facility] [address] [place] [address] [phone] Pro-BNP 6632 pg/mL High 0 - 125 CBC W/Automated Diff 01/08/[address] [address] [phone] CBC W/Automated Diff (SEE NOTE) 12 WBC 5.1 10^3/uL 4.2 - 11.0 RBC [...] Lymph 9.1 % Low 25.0 - 40.0 [place] 10.7 % High 3.0 - 8.0 Eos 3.2 % 0.0 - 7.0 Baso 0.8 % 0.0 - 2.0 %Ig 0.2 % High 0.0 - 0.0 %NRBC 0.0 % 0.0 - 0.0 #Neut 3.84 10^3/uL 2.00 - 6.90 #Lymph 0.46 10^3/uL Low 0.60 - 3.40 #Z[place] 0.54 10^3/uL 0.00 - 0.90 #Eos 0.16 10^3/uL 0.00 - 0.70 #Baso 0.04 10^3/uL 0.00 - 0.20 #Ig 0.01 10^3/uL 0.00 - 0.10 #NRBC 0.00 10^3/uL 0.00 - 0.00 Manual Diff NOT INDICATED RBC Morph NOT INDICATED Comprehensive Metabolic Panel 01/08/[address] [address] [phone] Comprehensive Metabo (SEE NOTE) 13 Sodium 139 mEq/L 134 - 153 Potassium [...] >60 mL/min Afr Amer GFR >60 mL/min 14 CBC W/Automated Diff 01/07/[address] [phone] CBC W/Automated Diff (SEE NOTE) 15, 16 WBC 5.0 10^3/uL 4.2 - 11.0 RBC [...] Lymph 10.9 % Low 25.0 - 40.0 [place] 9.1 % High 3.0 - 8.0 Eos 3.4 % 0.0 - 7.0 Baso 0.4 % 0.0 - 2.0 %Ig 0.4 % High 0.0 - 0.0 %NRBC 0.0 % 0.0 - 0.0 #Neut 3.77 10^3/uL 2.00 - 6.90 #Lymph 0.54 10^3/uL Low 0.60 - 3.40 #[place] 0.45 10^3/uL 0.00 - 0.90 #Eos 0.17 10^3/uL 0.00 - 0.70 #Baso 0.02 10^3/uL 0.00 - 0.20 #Ig 0.02 10^3/uL 0.00 - 0.10 #NRBC 0.00 10^3/uL 0.00 - 0.00 Manual Diff NOT INDICATED RBC Morph NOT INDICATED Comprehensive Metabolic Panel 01/07/2021 [facility] [address] [place] [phone] Comprehensive Metabo (SEE NOTE) 17 Sodium 139 mEq/L 134 - 153 [...] GFR >60 mL/min 18 Laboratory test finding [facility]/07/20[facility] [address] [place] [phone] Troponin T 0.02 NG/ML 0.00 - 0.10 19 CBC W/Automated Diff 01/06/[address] [address] [phone] CBC W/Automated Diff (SEE NOTE) 20 WBC 6.1 10^3/uL 4.2 - 11.0 RBC [...] Lymph 10.5 % Low 25.0 - 40.0 [place] 8.4 % High 3.0 - 8.0 Eos 2.3 % 0.0 - 7.0 Baso 0.3 % 0.0 - 2.0 %Ig 0.3 % High 0.0 - 0.0 %NRBC 0.0 % 0.0 - 0.0 #Neut 4.75 10^3/uL 2.00 - 6.90 #Lymph 0.64 10^3/uL 0.60 - 3.40 #Zapata 0.51 10^3/uL 0.00 - 0.90 #Eos 0.14 10^3/uL 0.00 - 0.70 #Baso 0.02 10^3/uL 0.00 - 0.20 #Ig 0.02 10^3/uL 0.00 - 0.10 #NRBC 0.00 10^3/uL 0.00 - 0.00 Manual Diff NOT INDICATED RBC Morph NOT INDICATED Comprehensive Metabolic Panel 01/06/2021 [facility] [address] [place] [address] [phone] Comprehensive Metabo (SEE NOTE) 21 Sodium 141 mEq/L 134 - 153 Potassium [...] >60 mL/min Afr Amer GFR >60 mL/min 22 Laboratory test finding 01/06/2021 [facility] [address] [place] [address] [phone] Iron 40 g/dL Low 42 - 135 Laboratory test finding 01/05/[address] [address] [phone] Magnesium Serum 1.8 mg/dL 1.7 - 2.2 CBC W/Automated Diff 01/05/[address] [address] [phone] CBC W/Automated Diff (SEE NOTE) 23 WBC 5.4 10^3/uL 4.2 - 11.0 RBC [...] Lymph 11.6 % Low 25.0 - 40.0 Zapata 8.5 % High 3.0 - 8.0 Eos 1.7 % 0.0 - 7.0 Baso 0.6 % 0.0 - 2.0 %Ig 0.4 % High 0.0 - 0.0 %NRBC 0.0 % 0.0 - 0.0 #Neut 4.21 10^3/uL 2.00 - 6.90 #Lymph 0.63 10^3/uL 0.60 - 3.40 #Zapata 0.46 10^3/uL 0.00 - 0.90 #Eos 0.09 10^3/uL 0.00 - 0.70 #Baso 0.03 10^3/uL 0.00 - 0.20 #Ig 0.02 10^3/uL 0.00 - 0.10 #NRBC 0.00 10^3/uL 0.00 - 0.00 Manual Diff NOT INDICATED RBC Morph NOT INDICATED Comprehensive Metabolic Panel 01/05/2021 [facility] [address] [place] [address] [phone] Comprehensive Metabo (SEE NOTE) 24 Sodium 141 mEq/L 134 - 153 Potassium [...] 54 mL/min Afr Amer GFR >60 mL/min 25 Laboratory test finding 01/04/2021 [facility] [address] [place] [address] [phone] Troponin T 0.02 NG/ML 0.00 - 0.10 26 Comprehensive Metabolic Panel 01/04/2021 [facility] [address] [place] [address] [phone] Comprehensive Metabo (SEE NOTE) 27 Sodium 142 mEq/L 134 - 153 Potassium [...] GFR >60 mL/min 28 CBC W/Automated Diff 01/04/2021 [place] [id number] [phone] CBC W/Automated Diff (SEE NOTE) 29 WBC 5.9 10^3/uL 4.2 - 11.0 RBC [...] Lymph 12.8 % Low 25.0 - 40.0 Zapata 8.0 % 3.0 - 8.0 Eos 2.1 % 0.0 - 7.0 Baso 0.3 % 0.0 - 2.0 %Ig 0.3 % High 0.0 - 0.0 %NRBC 0.0 % 0.0 - 0.0 #Neut 4.47 10^3/uL 2.00 - 6.90 #Lymph 0.75 10^3/uL 0.60 - 3.40 #Zapata 0.47 10^3/uL 0.00 - 0.90 #Eos 0.12 10^3/uL 0.00 - 0.70 #Baso 0.02 10^3/uL 0.00 - 0.20 #Ig 0.02 10^3/uL 0.00 - 0.10 #NRBC 0.00 10^3/uL 0.00 - 0.00 Manual Diff NOT INDICATED RBC Morph NOT INDICATED Laboratory test finding 01/04/2021 [place] [address] [phone] Troponin T 0.02 NG/ML 0.00 - 0.10 30 Laboratory test finding 01/04/2021 [place] [address] [phone] Potassium 4.1 mEq/L 3.6 - 5.0 Laboratory test finding 01/04/2021 [place] [address] [phone] Magnesium Serum 1.8 mg/dL 1.7 - 2.2 Iron 41 g/dL Low 42 - 135 Laboratory test finding 01/03/2021 [place] [address] [phone] Troponin T 0.02 NG/ML 0.00 - 0.10 31 Laboratory test finding 01/03/2021 [place] [address] [phone] Troponin T 0.02 NG/ML 0.00 - 0.10 32 CBC W/Automated Diff 01/03/2021 [place] [address] [phone] CBC W/Automated Diff (SEE NOTE) 33 WBC 6.3 10^3/uL 4.2 - 11.0 RBC [...] Lymph 8.7 % Low 25.0 - 40.0 Zapata 6.6 % 3.0 - 8.0 Eos 0.9 % 0.0 - 7.0 Baso 0.3 % 0.0 - 2.0 %Ig 0.5 % High 0.0 - 0.0 %NRBC 0.0 % 0.0 - 0.0 #Neut 5.25 10^3/uL 2.00 - 6.90 #Lymph 0.55 10^3/uL Low 0.60 - 3.40 #Zapata 0.42 10^3/uL 0.00 - 0.90 #Eos 0.06 10^3/uL 0.00 - 0.70 #Baso 0.02 10^3/uL 0.00 - 0.20 #Ig 0.03 10^3/uL 0.00 - 0.10 #NRBC 0.00 10^3/uL 0.00 - 0.00 Manual Diff NOT INDICATED RBC Morph NOT INDICATED Laboratory test finding 01/03/2021 [facility] [address] [place] [address] [phone] Troponin T 0.02 NG/ML 0.00 - 0.10 34 Pro-BNP 6929 pg/mL High 0 - 125 Comprehensive Metabolic Panel 01/03/2021 [facility] [address] [place] [address] [phone] Comprehensive Metabo (SEE NOTE) 35 Sodium 143 mEq/L 134 - 153 Potassium [...] GFR >60 mL/min 36 Laboratory test finding 01/03/[address] [address] [phone] Magnesium Serum 1.9 mg/dL 1.7 - 2.2 37 TSH Highly Sensitive 3.56 uIU/mL 0.47 - 5.01 T4 - Free 1.37 ng/dL 0.93 - 1.70 Cve Panel 12/12/[address] [address] [phone] Cve Panel (SEE NOTE) 38 Cholesterol 108 mg/dL Low 131 - 200 Triglycerides 52 mg/dL 35 - 160 HDL 40 mg/dL 29 - 86 LDL 68 mg/dL 65 - 175 Risk Factor 2.7 Low 3.4 - 4.9 LDL/HDL 1.70 1.00 - 3.55 39 CBC W/Automated Diff 12/12/[address] [address] [phone] CBC W/Automated Diff (SEE NOTE) 40 WBC 7.0 10^3/uL 4.2 - 11.0 RBC [...] Lymph 7.8 % Low 25.0 - 40.0 Zapata 7.1 % 3.0 - 8.0 Eos 0.7 % 0.0 - 7.0 Baso 0.3 % 0.0 - 2.0 %Ig 0.4 % High 0.0 - 0.0 %NRBC 0.0 % 0.0 - 0.0 #Neut 5.88 10^3/uL 2.00 - 6.90 #Lymph 0.55 10^3/uL Low 0.60 - 3.40 #Zapata 0.50 10^3/uL 0.00 - 0.90 #Eos 0.05 10^3/uL 0.00 - 0.70 #Baso 0.02 10^3/uL 0.00 - 0.20 #Ig 0.03 10^3/uL 0.00 - 0.10 #NRBC 0.00 10^3/uL 0.00 - 0.00 Manual Diff NOT INDICATED RBC Morph NOT INDICATED Comprehensive Metabolic Panel 12/12/2020 [facility] [address] [place] [address] [phone] Comprehensive Metabo (SEE NOTE) 41 Sodium 142 mEq/L 134 - 153 Potassium [...] 59 mL/min Afr Amer GFR >60 mL/min 42 Laboratory test finding 12/12/2020 [facility] [address] [place] [address] [phone] Magnesium Serum 2.1 mg/dL 1.7 - 2.2 Pro-BNP 7997 pg/mL High 0 - 125 Urinalysis 11/22/[address] [address] [phone] Urinalysis (SEE NOTE) 43, 44 Source R Color yellow Normal: Yellow Clarity clear Normal: Clear Spec [place] 1.015 1.001 - 1.030 pH 5 5 - 9 Glucose NORM Normal: Negative Bilirubin NEG Normal: Negative Ketone NEG Normal: Negative Protein NEG Normal: Negative Nitrite NEG Normal: Negative Blood NEG Normal: Negative Leuk Est NEG Normal: Negative Urobilinogen NOR less than 1.0 mg/dL Microscopic Not Indicate CBC W/Automated Diff 11/22/[address] [address] [phone] CBC W/Automated Diff (SEE NOTE) 45 WBC 6.7 10^3/uL 4.2 - 11.0 RBC [...] Lymph 7.2 % Low 25.0 - 40.0 Zapata 5.8 % 3.0 - 8.0 Eos 0.7 % 0.0 - 7.0 Baso 0.1 % 0.0 - 2.0 %Ig 0.4 % High 0.0 - 0.0 %NRBC 0.0 % 0.0 - 0.0 #Neut 5.73 10^3/uL 2.00 - 6.90 #Lymph 0.48 10^3/uL Low 0.60 - 3.40 #Zapata 0.39 10^3/uL 0.00 - 0.90 #Eos 0.05 10^3/uL 0.00 - 0.70 #Baso 0.01 10^3/uL 0.00 - 0.20 #Ig 0.03 10^3/uL 0.00 - 0.10 #NRBC 0.00 10^3/uL 0.00 - 0.00 Manual Diff NOT INDICATED RBC Morph NOT INDICATED Laboratory test finding 11/22/2020 [facility] [address] [place] [address] [phone] Hgba1c 5.2 % 4.4 - 6.1 46 Iron 42 g/dL 42 - 135 Magnesium Serum 2.2 mg/dL 1.7 - 2.2 Comprehensive Metabolic Panel 11/22/2020 [facility] [address] [place] [address] [phone] Comprehensive Metabo (SEE NOTE) 47 Sodium 142 mEq/L 134 - 153 Potassium [...] 46 mL/min Afr Amer GFR 56 mL/min 48 Cve Panel 11/22/2020 [facility] [address] [place] [address] [phone] Cve Panel (SEE NOTE) 49 Cholesterol 109 mg/dL Low 131 - 200 Triglycerides 45 mg/dL 35 - 160 HDL 45 mg/dL 29 - 86 LDL 66 mg/dL 65 - 175 Risk Factor 2.4 Low 3.4 - 4.9 LDL/HDL 1.47 1.00 - 3.55 50 Laboratory test finding 11/22/[address] [address] [phone] TSH Highly Sensitive 3.34 uIU/mL 0.47 - 5.0 1 Pro-BNP 4405 pg/mL High 0 - 125 Urinalysis 07/24/2020 [place] [id number] [phone] Urinalysis (SEE NOTE) 51, 52 Source R Color yellow Normal: Yellow Clarity clear Normal: Clear Spec [place] 1.015 1.001 - 1.030 pH 5 5 [...] Normal: None Seen Laboratory test finding 07/24/[address] [address] [phone] PSA - Diagnostic 1.01 ng/mL 0.00 - 4.00 53 Cve Panel 07/24/[address] [address] [phone] Cve Panel (SEE NOTE) 54 Cholesterol 133 mg/dL 131 - 200 Triglycerides 82 mg/dL 35 - 160 HDL 55 mg/dL 29 - 86 LDL 72 mg/dL 65 - 175 Risk Factor 2.4 Low 3.4 - 4.9 LDL/HDL 1.31 1.00 - 3.55 55 Basic Metabolic Panel 07/24/[address] [address] [phone] Basic Metabolic Pane (SEE NOTE) 56 Sodium 139 mEq/L 134 - 153 Potassium [...] GFR >60 mL/min Non-Aa GFR 59 mL/min 57 1 COMPREHENSIVE METABOLIC PANE L 2 Male GFR Interprentation 20-49 yrs >60 mL/min Normal 50-59 yrs >56 mL/min Normal 60-69 yrs >49 mL/min Normal 70-79yrs >42 mL/min Normal 80 and above >35 mL/min Normal Female GFR Interpretation 20-39 yrs >60 mL/min Normal 40-49 yrs >58 mL/min Normal 50-59 yrs >51 mL/min Normal 60-69 yrs >45 mL/min Normal 70-79 yrs >39 mL/min Normal 80 and above >32 mL/min Normal 3 TROPONIN T 0.1 ng/ml Recommended as the clinical th reshold value for Troponin T. 4 COMPLETE BLOOD COUNT 5 { SICKLE CELL (NORMAL: NONE SEEN ) 6 COMMENT: _FEW_LARGE_PLATELET S_OBSERVED. 01/21/21.0452.LBS. . . 7 *FOR MEDICAL PURPOSES ONLY* 8 COMPLETE BLOOD COUNT 9 TROPONIN T 0.1 ng/ml Recommended as the clinical th reshold value for Troponin T. 10 COMPREHENSIVE METABOLIC PANE L 11 Male [...] 80 and above >32 mL/min Normal 12 COMPLETE BLOOD COUNT 13 COMPREHENSIVE METABOLIC PANE L 14 Male GFR Interprentation 20-49 yrs >60 mL/min Normal 50-59 yrs >56 mL/min Normal 60-69 yrs >49 mL/min Normal 70-79yrs >42 mL/min Normal 80 and above >35 mL/min Normal Female GFR Interpretation 20-39 yrs >60 mL/min Normal 40-49 yrs >58 mL/min Normal 50-59 yrs >51 mL/min Normal 60-69 yrs >45 mL/min Normal 70-79 yrs >39 mL/min Normal 80 and above >32 mL/min Normal 15 Is patient fasting? N 16 COMPLETE BLOOD COUNT 17 COMPREHENSIVE METABOLIC PANE L 18 Male [...] th reshold value for Troponin T. 20 COMPLETE BLOOD COUNT 21 COMPREHENSIVE METABOLIC PANE L 22 Male GFR Interprentation 20-49 yrs >60 mL/min Normal 50-59 yrs >56 mL/min Normal 60-69 yrs >49 mL/min Normal 70-79yrs >42 mL/min Normal 80 and above >35 mL/min Normal Female GFR Interpretation 20-39 yrs >60 mL/min Normal 40-49 yrs >58 mL/min Normal 50-59 yrs >51 mL/min Normal 60-69 yrs >45 mL/min Normal 70-79 yrs >39 mL/min Normal 80 and above >32 mL/min Normal 23 COMPLETE BLOOD COUNT 24 COMPREHENSIVE METABOLIC PANE L 25 Male [...] 80 and above >32 mL/min Normal 26 TROPONIN T 0.1 ng/ml Recommended as the clinical th reshold value for Troponin T. 27 COMPREHENSIVE METABOLIC PANE L 28 Male [...] mL/min Normal 29 COMPLETE BLOOD COUNT 30 TROPONIN T 0.1 ng/ml Recommended as the clinical th reshold value for Troponin T. 31 TROPONIN T 0.1 ng/ml Recommended as the clinical th reshold value for Troponin T. 32 TROPONIN T 0.1 ng/ml Recommended as the clinical th reshold value for Troponin T. 33 COMPLETE BLOOD COUNT 34 TROPONIN T 0.1 ng/ml Recommended as the clinical th reshold value for Troponin T. 35 COMPREHENSIVE METABOLIC PANE L 36 Male [...] 80 and above >32 mL/min Normal 37 Can run on todays blood 38 LIPID PANEL 39 CVE RISK CHOL/HDL LDL/HDL MEN: 1/2 AVERAGE 3.43 1.00 AVERAGE 4.97 3.55 2X AVERAGE 9.55 6.25 3X AVERAGE 23.99 7.99 WOMEN: 1/2 AVERAGE 3.27 1.47 AVERAGE 4.44 3.22 2X AVERAGE 7.05 5.03 3X AVERAGE 11.04 6.14 40 COMPLETE BLOOD COUNT 41 COMPREHENSIVE METABOLIC PANE L 42 Male GFR Interprentation 20-49 yrs >60 mL/min Normal 50-59 yrs >56 mL/min Normal 60-69 yrs >49 mL/min Normal 70-79yrs >42 mL/min Normal 80 and above >35 mL/min Normal Female GFR Interpretation 20-39 yrs >60 mL/min Normal 40-49 yrs >58 mL/min Normal 50-59 yrs >51 mL/min Normal 60-69 yrs >45 mL/min Normal 70-79 yrs >39 mL/min Normal 80 and above >32 mL/min Normal 43 {SOURCE: Random Void~NURSE COLLECTED? N 44 URINALYSIS 45 COMPLETE BLOOD COUNT 46 {A1] {HB] 47 COMPREHENSIVE METABOLIC PANE L 48 Male GFR Interprentation 20-49 yrs >60 mL/min Normal 50-59 yrs >56 mL/min Normal 60-69 yrs >49 mL/min Normal 70-79yrs >42 mL/min Normal 80 and above >35 mL/min Normal Female GFR Interpretation 20-39 yrs >60 mL/min Normal 40-49 yrs >58 mL/min Normal 50-59 yrs >51 mL/min Normal 60-69 yrs >45 mL/min Normal 70-79 yrs >39 mL/min Normal 80 and above >32 mL/min Normal 49 LIPID PANEL 50 CVE RISK CHOL/HDL LDL/HDL MEN: 1/2 AVERAGE 3.43 1.00 AVERAGE 4.97 3.55 2X AVERAGE 9.55 6.25 3X AVERAGE 23.99 7.99 WOMEN: 1/2 AVERAGE 3.27 1.47 AVERAGE 4.44 3.22 2X AVERAGE 7.05 5.03 3X AVERAGE 11.04 6.14 51 FASTING~.~.~<DG1.3.1>R31.21</DG1.3.1><DG1.3.1>R31.21</DG1.3.1><DG1.3.1>R31.21</D G1.3.1><DG1. 52 URINALYSIS 53 \\BLDo\\PSA INTERPRETATION\\BLD x\\ The PSA assay should [...] methods or kits cannot be used interchangeably. 54 LIPID PANEL 55 CVE RISK CHOL/HDL LDL/HDL MEN: 1/2 AVERAGE 3.43 1.00 AVERAGE 4.97 3.55 2X AVERAGE 9.55 6.25 3X AVERAGE 23.99 7.99 WOMEN: 1/2 AVERAGE 3.27 1.47 AVERAGE 4.44 3.22 2X AVERAGE 7.05 5.03 3X AVERAGE 11.04 6.14 56 BASIC METABOLIC PANEL 57 Male GFR Interprentation 20-49 yrs >60 mL/min [...] Normal Procedures Date Code Description Status 12/24/2020 14213 Office/Outpatient Established Lo w MDM 20-29 Min Completed 12/23/2020 05308 Myocardial Perfusion,WM & Ef Com pleted 12/19/2020 36613 Office/Outpatient Established Mo d MDM 30-39 Min Completed 12/19/2020 76034 EKG Completed 12/17/2020 06954 Office/Outpatient Established Mo d MDM 30-39 Min Completed 12/12/2020 96750 Office/Outpatient Established Mo d MDM 30-39 Min Completed 11/26/2020 30073 Office/Outpatient Established Mo d MDM 30-39 Min Completed 11/26/2020 80403 Echocardiogram, Complete Complet ed 11/26/2020 22204 EKG Completed 11/22/2020 14995 Office/Outpatient Established Mo d MDM 30-39 Min Completed 10/22/2020 25248 Office/Outpatient Established Mo d MDM 30-39 Min Completed Encounters Type Date Location Provider Dx Diagnosis Office Visit 12/24/2020 11:30a [facility] Jon Elizondo M.D.,P. C. I11.9 Hypertensive heart disease without heart failure E78.5 Hyperlipidemia, unspecified I42.9 Cardiomyopathy, unspecified Office Visit 12/19/2020 10:15a [facility] Jon Elizondo M.D.,P. C. I11.9 Hypertensive heart disease without heart failure D50.9 Iron deficiency anemia, unsp ecified E78.5 Hyperlipidemia, unspecified I50.20 Unspecified systolic (conges tive) heart failure I49.49 Other premature depolarizati on Office Visit 12/17/2020 10:15a [facility] Jon Elizondo M.D.,P. C. I11.9 Hypertensive heart disease without heart failure K59.00 Constipation, unspecified I50.20 Unspecified systolic (conges tive) heart failure I42.9 Cardiomyopathy, unspecified Office Visit 12/12/2020 10:00a [facility] Jon Elizondo M.D.,[facility]. C. I11.9 Hypertensive heart disease without heart failure J43.9 Emphysema, unspecified Office Visit 11/26/2020 10:30a [facility] Jon Elizondo M.D.,P. C. I50.20 Unspecified systolic (congestive) heart failure I11.9 [facility] J06.9 Acute upper respiratory infe ction, unspecified I42.9 Cardiomyopathy, unspecified I49.49 Other premature depolarizati on Office Visit 11/22/2020 10:00a [facility] Jon Elizondo M.D.,P. C. I50.20 Unspecified systolic (congestive) heart failure I11.9 Hypertensive heart disease w ithout heart failure E78.5 Hyperlipidemia, unspecified Office Visit 10/22/2020 11:00a [facility] Jon Elizondo M.D.,P. C. I11.9 Hypertensive heart disease without heart failure E78.5 Hyperlipidemia, unspecified I50.20 Unspecified systolic (conges tive) heart failure I95.9 Hypotension, unspecified Assessments Date Code Description Provider 12/24/2020 I11.9 Hypertensive heart disease witho ut heart failure Jon Elizondo M.D[facility] 12/24/2020 E78.5 Hyperlipidemia, unspecified Samreen Elizondo M.D.,P.C. 12/24/2020 I42.9 Cardiomyopathy, unspecified Samreen Elizondo M.D[facility] 12/23/2020 I25.10 Atherosclerotic hear t disease of [place] coronary artery without angina pectoris Jon Elizondo M.D[facility]. 12/19/2020 I11.9 Hypertensive heart disease witho nv heart failure Jon Elizondo M.D[facility] 12/19/2020 D50.9 Iron deficiency anemia, unspecif ied Jon Elizondo M.D[facility]. 12/19/2020 E78.5 Hyperlipidemia, unspecified Samreen Elizondo [facility] 12/19/2020 I50.20 Unspecified systolic (congestive ) heart failure Jon [facility] 12/19/2020 I49.49 Other premature depolarization Sandra [facility]ondo [facility] 12/17/2020 I11.9 Hypertensive heart disease witho nv heart failure Jon [facility]ondo [facility] 12/17/2020 K59.00 Constipation, salmaified Jon [facility]ondo [facility] 12/17/2020 I50.20 Unspecified systolic (congestive ) heart failure Jon [facility]ondo [facility] 12/17/2020 I42.9 Cardiomyopathy, unspecified Samreen [facility]ondo [facility] 12/12/2020 I11.9 Hypertensive heart disease witho nv heart failure Jon [facility]ondo [facility] 12/12/2020 J43.9 Emphysema, unspecified Jon silva [facility] 11/26/2020 I50.20 Unspecified systolic (congestive ) heart failure Jon [facility]ondo [facility] 11/26/2020 I11.9 Hypertensive heart disease witho nv heart failure Jon [facility]ondo [facility] 11/26/2020 J06.9 Acute upper respiratory infectio n, unspecSandra Vazquez.D.,[facility]. 11/26/2020 I42.9 Cardiomyopathy, unspecified Samreen [facility] 11/26/2020 I49.49 Other premature depolarization M sergey Elizondo [facility] 11/22/2020 I50.20 Unspecified systolic (congestive ) heart failure Jon [facility]ondo [facility] 11/22/2020 I11.9 Hypertensive heart disease witho nv heart failure Jon [facility]ondo [facility] 11/22/2020 E78.5 Hyperlipidemia, unspecified Samreen [facility]ondo [facility] 10/22/2020 I11.9 Hypertensive heart disease witho nv heart failure Jon [facility]ondo [facility] 10/22/2020 E78.5 Hyperlipidemia, unspecified Samreen [facility]ondo [facility] 10/22/2020 I50.20 Unspecified systolic (congestive ) heart failure Jon [facility]ondo [facility] 10/22/2020 I95.9 Hypotension, unspecified Jon greene [facility] Plan of Treatment Future Appointment(s):* 01/23/2021 11:00 am - Jon [facility] at [facility] Referrals Refer to Dr Reason for Referral Status Appt Date Mick Ching MD Please eval. and treat this patient for positive nuclear stress test, he needs a cardiac cath. Thank you. Created [id number] [facility] [address] [place] [address] [phone]
--- OUTSIDE RECORDS SUMMARY | 2021-03-19 12:36 | CCD | Continuity of Care Document ---
Author Author Adebayo Reveles Organization Unknown Address Unknown Phone [phone] Care Team Providers Care Building Official Name Role Phone [facility] Mick Ching MD AUT [phone] JON ELIZONDO M[facility]D. P.C[facility] AUT [phone] Social History Type Date Description Comments Sex Unknown Allergies and adverse reactions Active Allergies Criticality Reaction | Severity Comments Date Tolmetin Unable to assess criticality 03/28/2020 Medications Active Medications SIG Qnty Indications Ordering Provide r Date Wellbutrin SR 150mg Tablets ER 12H R 1 by mouth twice a day 60tarachele Elizondo M[facility] 2020 Ipratropium [place]/Albuterol Sulfate 0.5-2.5(3)mg/3ML Solution inhale 1 vial via [...] twice a day 180tabs Jon Elizondo M[facility] [place] Extract 150mg Capsules take one tablet by mouth daily Jon Elizondo M[facility] Vitamin C 500mg Capsules ever y day Jon Elizondo M[facility] Multivitamin Adult Tablets take one tablet by mouth twice daily Jon Elizondo M[facility] Nitrostat 0.4mg Tablets Sub one tablet by mouth for onset of chest pain, may repeat in five mins x2. if persists contact md or call 911 25tabs Jon Elizondo M.D[facility] [...] H/L Range Note Comprehensive Metabolic Panel 01/21/2021 [facility] [address] [address] [phone] Comprehensive Metabo (SEE NOTE) 1 Sodium 140 [...] >60 mL/min 2 Laboratory test finding 01/21/[address] [phone] Troponin T 0.07 NG/ML 0.00 - 0.10 3 CBC W/Automated Diff 01/21/[address] [address] [phone] CBC W/Automated Diff (SEE NOTE) 4 WBC [...] Lymph 10.9 % Low 25.0 - 40.0 Scott 7.1 % 3.0 - 8.0 Eos 2.2 % 0.0 - 7.0 Baso 0.5 % 0.0 - 2.0 %Ig 0.2 % High 0.0 - 0.0 %NRBC 0.0 % 0.0 - 0.0 #Neut 4.37 10^3/uL 2.00 - 6.90 #Lymph 0.60 10^3/uL 0.60 - 3.40 #Scott 0.39 10^3/uL 0.00 - 0.90 #Eos 0.12 [...] Normal: Normal 6 Laboratory test finding 01/21/2021 [place] [address] [phone] Magnesium Serum 2.0 mg/dL 1.7 - 2.2 Alcohol Ethyl Blood 01/20/2021 [place] [address] [phone] Alcohol 70.0 mg/dL Alcohol % 0.07 % High 0.00 - 0.01 7 CBC W/Automated Diff 01/20/2021 [place] [address] [phone] CBC W/Automated Diff (SEE NOTE) 8 WBC [...] Lymph 14.2 % Low 25.0 - 40.0 Scott 7.7 % 3.0 - 8.0 Eos 3.2 % 0.0 - 7.0 Baso 0.3 % 0.0 - 2.0 %Ig 0.3 % High 0.0 - 0.0 %NRBC 0.0 % 0.0 - 0.0 #Neut 4.66 10^3/uL 2.00 - 6.90 #Lymph 0.89 10^3/uL 0.60 - 3.40 #Scott 0.48 10^3/uL 0.00 - 0.90 #Eos 0.20 10^3/uL 0.00 - 0.70 #Baso 0.02 10^3/uL 0.00 - 0.20 #Ig 0.02 10^3/uL 0.00 - 0.10 #NRBC 0.00 10^3/uL 0.00 - 0.00 Manual Diff NOT INDICATED RBC Morph NOT INDICATED Laboratory test finding 01/20/[address] [address] [phone] Troponin T 0.03 NG/ML 0.00 - 0.10 9 Comprehensive Metabolic Panel 01/20/2021 [facility] [address] [place] [phone] Comprehensive Metabo (SEE NOTE) 10 Sodium 140 [...] >60 mL/min 11 Laboratory test finding 01/20/[address] [address] [phone] Pro-BNP 6632 pg/mL High 0 - 125 CBC W/Automated Diff 01/08/[address] [address] [phone] CBC W/Automated Diff (SEE NOTE) 12 WBC [...] Lymph 9.1 % Low 25.0 - 40.0 Scott 10.7 % High 3.0 - 8.0 Eos 3.2 % 0.0 - 7.0 Baso 0.8 % 0.0 - 2.0 %Ig 0.2 % High 0.0 - 0.0 %NRBC 0.0 % 0.0 - 0.0 #Neut 3.84 10^3/uL 2.00 - 6.90 #Lymph 0.46 10^3/uL Low 0.60 - 3.40 #Scott 0.54 10^3/uL 0.00 - 0.90 #Eos 0.16 10^3/uL 0.00 - 0.70 #Baso 0.04 10^3/uL 0.00 - 0.20 #Ig 0.01 10^3/uL 0.00 - 0.10 #NRBC 0.00 10^3/uL 0.00 - 0.00 Manual Diff NOT INDICATED RBC Morph NOT INDICATED Comprehensive Metabolic Panel 01/08/2021 [facility] [address] [place] [address] [phone] Comprehensive Metabo (SEE NOTE) 13 Sodium 139 [...] >60 mL/min 14 CBC W/Automated Diff 01/07/[address] [phone] CBC W/Automated Diff (SEE NOTE) 15, 16 [...] Lymph 10.9 % Low 25.0 - 40.0 Scott 9.1 % High 3.0 - 8.0 Eos 3.4 % 0.0 - 7.0 Baso 0.4 % 0.0 - 2.0 %Ig 0.4 % High 0.0 - 0.0 %NRBC 0.0 % 0.0 - 0.0 #Neut 3.77 10^3/uL 2.00 - 6.90 #Lymph 0.54 10^3/uL Low 0.60 - 3.40 #Scott 0.45 10^3/uL 0.00 - 0.90 #Eos 0.17 10^3/uL 0.00 - 0.70 #Baso 0.02 10^3/uL 0.00 - 0.20 #Ig 0.02 10^3/uL 0.00 - 0.10 #NRBC 0.00 10^3/uL 0.00 - 0.00 Manual Diff NOT INDICATED RBC Morph NOT INDICATED Comprehensive Metabolic Panel 01/07/2021 [facility] [address] [place] [address] [phone] Comprehensive Metabo (SEE NOTE) 17 Sodium 139 [...] >60 mL/min 18 Laboratory test finding 01/07/2021 [facility] [address] [place] [phone] [phone] Troponin T 0.02 NG/ML 0.00 - 0.10 19 CBC W/Automated Diff 01/06/[address] [address] [phone] CBC W/Automated Diff (SEE NOTE) 20 WBC [...] Lymph 10.5 % Low 25.0 - 40.0 Scott 8.4 % High 3.0 - 8.0 Eos 2.3 % 0.0 - 7.0 Baso 0.3 % 0.0 - 2.0 %Ig 0.3 % High 0.0 - 0.0 %NRBC 0.0 % 0.0 - 0.0 #Neut 4.75 10^3/uL 2.00 - 6.90 #Lymph 0.64 10^3/uL 0.60 - 3.40 #Scott 0.51 10^3/uL 0.00 - 0.90 #Eos 0.14 10^3/uL 0.00 - 0.70 #Baso 0.02 10^3/uL 0.00 - 0.20 #Ig 0.02 10^3/uL 0.00 - 0.10 #NRBC 0.00 10^3/uL 0.00 - 0.00 Manual Diff NOT INDICATED RBC Morph NOT INDICATED Comprehensive Metabolic Panel 01/06/2021 [facility] [address] [place] [address] [phone] Comprehensive Metabo (SEE NOTE) 21 Sodium 141 [...] >60 mL/min 22 Laboratory test finding 01/06/2021 [facility] [address] [place] [address] [phone] Iron 40 g/dL Low 42 - 135 Laboratory test finding 01/05/2021 [facility] [address] [place] [address] [phone] Magnesium Serum 1.8 mg/dL 1.7 - 2.2 CBC W/Automated Diff 01/05/2021 [place] [address] [phone] CBC W/Automated Diff (SEE NOTE) 23 WBC [...] Lymph 11.6 % Low 25.0 - 40.0 Scott 8.5 % High 3.0 - 8.0 Eos 1.7 % 0.0 - 7.0 Baso 0.6 % 0.0 - 2.0 %Ig 0.4 % High 0.0 - 0.0 %NRBC 0.0 % 0.0 - 0.0 #Neut 4.21 10^3/uL 2.00 - 6.90 #Lymph 0.63 10^3/uL 0.60 - 3.40 #Scott 0.46 10^3/uL 0.00 - 0.90 #Eos 0.09 10^3/uL 0.00 - 0.70 #Baso 0.03 10^3/uL 0.00 - 0.20 #Ig 0.02 10^3/uL 0.00 - 0.10 #NRBC 0.00 10^3/uL 0.00 - 0.00 Manual Diff NOT INDICATED RBC Morph NOT INDICATED Comprehensive Metabolic Panel 01/05/2021 [facility] [address] [place], [place] [id number] [phone] Comprehensive Metabo (SEE NOTE) 24 Sodium 141 [...] >60 mL/min 25 Laboratory test finding 01/04/2021 [facility] [address] [place] [address] [phone] Troponin T 0.02 NG/ML 0.00 - 0.10 26 Comprehensive Metabolic Panel 01/04/2021 [facility] [address] [place] [address] [phone] Comprehensive Metabo (SEE NOTE) 27 Sodium 142 [...] >60 mL/min 28 CBC W/Automated Diff 01/04/[address] [id number] [phone] CBC W/Automated Diff (SEE NOTE) 29 WBC [...] Lymph 12.8 % Low 25.0 - 40.0 Scott 8.0 % 3.0 - 8.0 Eos 2.1 % 0.0 - 7.0 Baso 0.3 % 0.0 - 2.0 %Ig 0.3 % High 0.0 - 0.0 %NRBC 0.0 % 0.0 - 0.0 #Neut 4.47 10^3/uL 2.00 - 6.90 #Lymph 0.75 10^3/uL 0.60 - 3.40 #Scott 0.47 10^3/uL 0.00 - 0.90 #Eos 0.12 10^3/uL 0.00 - 0.70 #Baso 0.02 10^3/uL 0.00 - 0.20 #Ig 0.02 10^3/uL 0.00 - 0.10 #NRBC 0.00 10^3/uL 0.00 - 0.00 Manual Diff NOT INDICATED RBC Morph NOT INDICATED Laboratory test finding 01/04/2021 [place] [address] [phone] Troponin T 0.02 NG/ML 0.00 - 0.10 30 Laboratory test finding 01/04/2021 [place] [address] [phone] Potassium 4.1 mEq/L 3.6 - 5.0 Laboratory test finding 01/04/2021 [place] [address] [phone] Magnesium Serum 1.8 mg/dL 1.7 - 2.2 Iron 41 g/dL Low 42 - 135 Laboratory test finding 01/03/2021 [place] [address] [phone] Troponin T 0.02 NG/ML 0.00 - 0.10 31 Laboratory test finding 01/03/2021 [place] [address] [phone] Troponin T 0.02 NG/ML 0.00 - 0.10 32 CBC W/Automated Diff 01/03/2021 [place] [address] [phone] CBC W/Automated Diff (SEE NOTE) 33 WBC [...] Lymph 8.7 % Low 25.0 - 40.0 Scott 6.6 % 3.0 - 8.0 Eos 0.9 % 0.0 - 7.0 Baso 0.3 % 0.0 - 2.0 %Ig 0.5 % High 0.0 - 0.0 %NRBC 0.0 % 0.0 - 0.0 #Neut 5.25 10^3/uL 2.00 - 6.90 #Lymph 0.55 10^3/uL Low 0.60 - 3.40 #Scott 0.42 10^3/uL 0.00 - 0.90 #Eos 0.06 10^3/uL 0.00 - 0.70 #Baso 0.02 10^3/uL 0.00 - 0.20 #Ig 0.03 10^3/uL 0.00 - 0.10 #NRBC 0.00 10^3/uL 0.00 - 0.00 Manual Diff NOT INDICATED RBC Morph NOT INDICATED Laboratory test finding 01/03/2021 [facility] [address] [place] [address] [phone] Troponin T 0.02 NG/ML 0.00 - 0.10 34 Pro-BNP 6929 pg/mL High 0 - 125 Comprehensive Metabolic Panel 01/03/2021 [facility] [address] [place] [address] [phone] Comprehensive Metabo (SEE NOTE) 35 Sodium 143 [...] >60 mL/min 36 Laboratory test finding 01/03/[address] [address] [phone] Magnesium Serum 1.9 mg/dL 1.7 - 2.2 37 TSH Highly Sensitive 3.56 uIU/mL 0.47 - 5.01 T4 - Free 1.37 ng/dL 0.93 - 1.70 Cve Panel 12/12/[address] [address] [phone] Cve Panel (SEE NOTE) 38 Cholesterol 108 mg/dL Low 131 - 200 Triglycerides 52 mg/dL 35 - 160 HDL 40 mg/dL 29 - 86 LDL 68 mg/dL 65 - 175 Risk Factor 2.7 Low 3.4 - 4.9 LDL/HDL 1.70 1.00 - 3.55 39 CBC W/Automated Diff 12/12/[address] [address] [phone] CBC W/Automated Diff (SEE NOTE) 40 WBC [...] Lymph 7.8 % Low 25.0 - 40.0 Scott 7.1 % 3.0 - 8.0 Eos 0.7 % 0.0 - 7.0 Baso 0.3 % 0.0 - 2.0 %Ig 0.4 % High 0.0 - 0.0 %NRBC 0.0 % 0.0 - 0.0 #Neut 5.88 10^3/uL 2.00 - 6.90 #Lymph 0.55 10^3/uL Low 0.60 - 3.40 #Scott 0.50 10^3/uL 0.00 - 0.90 #Eos 0.05 10^3/uL 0.00 - 0.70 #Baso 0.02 10^3/uL 0.00 - 0.20 #Ig 0.03 10^3/uL 0.00 - 0.10 #NRBC 0.00 10^3/uL 0.00 - 0.00 Manual Diff NOT INDICATED RBC Morph NOT INDICATED Comprehensive Metabolic Panel 12/12/2020 [facility] [address] [place] [address] [phone] Comprehensive Metabo (SEE NOTE) 41 Sodium 142 [...] >60 mL/min 42 Laboratory test finding 12/12/2020 [facility] [address] [place] [address] [phone] Magnesium Serum 2.1 mg/dL 1.7 - 2.2 Pro-BNP 7997 pg/mL High 0 - 125 Urinalysis 11/22/[address] [id number] [phone] Urinalysis (SEE NOTE) 43, 44 Source R Color yellow Normal: Yellow Clarity clear Normal: Clear Spec [place] 1.015 1.001 - 1.030 pH 5 5 - 9 Glucose NORM Normal: Negative Bilirubin NEG Normal: Negative Ketone NEG Normal: Negative Protein NEG Normal: Negative Nitrite NEG Normal: Negative Blood NEG Normal: Negative Leuk Est NEG Normal: Negative Urobilinogen NOR less than 1.0 mg/dL Microscopic Not Indicate CBC W/Automated Diff 11/22/[address] [address] [phone] CBC W/Automated Diff (SEE NOTE) 45 WBC [...] Lymph 7.2 % Low 25.0 - 40.0 Scott 5.8 % 3.0 - 8.0 Eos 0.7 % 0.0 - 7.0 Baso 0.1 % 0.0 - 2.0 %Ig 0.4 % High 0.0 - 0.0 %NRBC 0.0 % 0.0 - 0.0 #Neut 5.73 10^3/uL 2.00 - 6.90 #Lymph 0.48 10^3/uL Low 0.60 - 3.40 #Scott 0.39 10^3/uL 0.00 - 0.90 #Eos 0.05 10^3/uL 0.00 - 0.70 #Baso 0.01 10^3/uL 0.00 - 0.20 #Ig 0.03 10^3/uL 0.00 - 0.10 #NRBC 0.00 10^3/uL 0.00 - 0.00 Manual Diff NOT INDICATED RBC Morph NOT INDICATED Laboratory test finding 11/22/2020 [facility] [address] [place] [address] [phone] Hgba1c 5.2 % 4.4 - 6.1 46 Iron 42 g/dL 42 - 135 Magnesium Serum 2.2 mg/dL 1.7 - 2.2 Comprehensive Metabolic Panel 11/22/2020 [facility] [address] [place] [address] [phone] Comprehensive Metabo (SEE NOTE) 47 Sodium 142 [...] GFR 56 mL/min 48 Cve Panel 11/22/2020 [facility] [address] [place] [address] [phone] Cve Panel (SEE NOTE) 49 Cholesterol 109 mg/dL Low 131 - 200 Triglycerides 45 mg/dL 35 - 160 HDL 45 mg/dL 29 - 86 LDL 66 mg/dL 65 - 175 Risk Factor 2.4 Low 3.4 - 4.9 LDL/HDL 1.47 1.00 - 3.55 50 Laboratory test finding 11/22/2020 [facility] [address] [place], [place] [id number] [phone] TSH Highly Sensitive 3.34 uIU/mL 0.47 - 5.0 1 Pro-BNP 4405 pg/mL High 0 - 125 Urinalysis 07/24/2020 [place] [address]1101 [phone] Urinalysis (SEE NOTE) 51, 52 Source R Color yellow Normal: Yellow Clarity clear Normal: Clear Spec [place] 1.015 1.001 - 1.030 pH 5 5 [...] Normal: None Seen Laboratory test finding 07/24/[address] [address] [phone] PSA - Diagnostic 1.01 ng/mL 0.00 - 4.00 53 Cve Panel 07/24/2020 [place] [address] [phone] Cve Panel (SEE NOTE) 54 Cholesterol 133 mg/dL 131 - 200 Triglycerides 82 mg/dL 35 - 160 HDL 55 mg/dL 29 - 86 LDL 72 mg/dL 65 - 175 Risk Factor 2.4 Low 3.4 - 4.9 LDL/HDL 1.31 1.00 - 3.55 55 Basic Metabolic Panel 07/24/2020 [place] [id number] [phone] Basic Metabolic Pane (SEE NOTE) 56 Sodium [...] Normal Procedures Date Code Description Status 12/24/2020 98181 Office/Outpatient Established Lo w MDM 20-29 Min Completed 12/23/2020 44431 Myocardial Perfusion,WM & Ef Com pleted 12/19/2020 64482 Office/Outpatient Established Mo d MDM 30-39 Min Completed 12/19/2020 91897 EKG Completed 12/17/2020 35276 Office/Outpatient Established Mo d MDM 30-39 Min Completed 12/12/2020 63111 Office/Outpatient Established Mo d MDM 30-39 Min Completed 11/26/2020 00042 Office/Outpatient Established Mo d MDM 30-39 Min Completed 11/26/2020 51000 Echocardiogram, Complete Complet ed 11/26/2020 90816 EKG Completed 11/22/2020 08613 Office/Outpatient Established Mo d MDM 30-39 Min Completed 10/22/2020 66086 Office/Outpatient Established Mo d MDM 30-39 Min Completed Encounters Type Date Location Provider Dx Diagnosis Office Visit 12/24/2020 11:30a [facility] Jon Elizondo M.D[facility] I11.9 Hypertensive heart disease without heart failure E78.5 Hyperlipidemia, unspecified I42.9 Cardiomyopathy, unspecified Office Visit 12/19/2020 10:15a [facility] Jon Elizondo M.D[facility] I11.9 Hypertensive heart disease without heart failure D50.9 Iron deficiency anemia, unsp ecified E78.5 Hyperlipidemia, unspecified I50.20 Unspecified systolic (conges tive) heart failure I49.49 Other premature depolarizati on Office Visit 12/17/2020 10:15a [facility] Jon Elizondo M.D.,[facility]. [facility]. I11.9 Hypertensive heart disease without heart failure K59.00 Constipation, unspecified I50.20 Unspecified systolic (conges tive) heart failure I42.9 Cardiomyopathy, unspecified Office Visit 12/12/2020 10:00a [facility] Jon Elizondo M.D[facility]. I11.9 Hypertensive heart disease without heart failure J43.9 Emphysema, unspecified Office Visit 11/26/2020 10:30a [facility] Jon Elizondo M.D[facility] I50.20 Unspecified systolic (congestive) heart failure I11.9 Hypertensive heart disease w [facility] heart failure J06.9 Acute upper respiratory infe ction, unspecified I42.9 Cardiomyopathy, unspecified I49.49 Other premature depolarizati on Office Visit 11/22/2020 10:00a [facility] Jon Elizondo M.D[facility] I50.20 Unspecified systolic (congestive) heart failure I11.9 Hypertensive heart disease w [facility] heart failure E78.5 Hyperlipidemia, unspecified Office Visit 10/22/2020 11:00a [facility] Jon Elizondo M.D[facility]. [facility]. I11.9 Hypertensive heart disease without heart failure E78.5 Hyperlipidemia, unspecified I50.20 Unspecified systolic (conges tive) heart failure I95.9 Hypotension, unspecified Assessments Date Code Description Provider 12/24/2020 I11.9 Hypertensive heart disease witho ut heart failure Jon [facility]izondo [facility] 12/24/2020 E78.5 Hyperlipidemia, unspecified Samreen Elizondo M.D[facility] 12/24/2020 I42.9 Cardiomyopathy, unspecified Samreen Eliznodo M.D[facility]. 12/23/2020 I25.10 Atherosclerotic hear t disease of [place] coronary artery without angina pectoris Jon Elizondo M[facility] 12/19/2020 I11.9 Hypertensive heart disease witho nj heart failure Jon Elizondo M.D[facility] 12/19/2020 D50.9 Iron deficiency anemia, unspecif ied Jon Elizondo M.D[facility] 12/19/2020 E78.5 Hyperlipidemia, unspecified Samreen Elizondo M.D[facility] 12/19/2020 I50.20 Unspecified systolic (congestive ) heart failure Jon Elizondo M.D[facility] 12/19/2020 I49.49 Other premature depolarization Sandra Elizondo M.D[facility]. 12/17/2020 I11.9 [facility] 12/17/2020 K59.00 Constipation, salmaified Jon Elizondo M.D[facility] 12/17/2020 I50.20 Unspecified systolic (congestive ) heart failure Jon Elizondo M.D[facility] 12/17/2020 I42.9 Cardiomyopathy, unspecified Samreen Elizondo M.D[facility] 12/12/2020 I11.9 [facility] 12/12/2020 J43.9 Emphysema, unspecified Jon silva M.D[facility] 11/26/2020 I50.20 Unspecified systolic (congestive ) heart failure Jon Elizondo M.D[facility] 11/26/2020 I11.9 Hypertensive heart disease witho nj heart failure Jon Elizondo M.D[facility] 11/26/2020 J06.9 Acute upper respiratory infectio n, fabrizio Elizondo M.D[facility]. 11/26/2020 I42.9 Cardiomyopathy, unspecified Samreen Elizondo M[facility] 11/26/2020 I49.49 Other premature depolarization M sergey Elizondo M.D[facility] 11/22/2020 I50.20 Unspecified systolic (congestive ) heart failure Jon Elizondo M.D[facility] 11/22/2020 I11.9 Hypertensive heart disease witho nj heart failure Jon Elizondo M.D[facility] 11/22/2020 E78.5 Hyperlipidemia, unspecified Samreen Elizondo M.D[facility] 10/22/2020 I11.9 Hypertensive heart disease witho nj heart failure Jon Elizondo M.D[facility] 10/22/2020 E78.5 Hyperlipidemia, unspecified Samreen Elizondo M.D[facility] 10/22/2020 I50.20 Unspecified systolic (congestive ) heart failure Jon Elizondo [facility] 10/22/2020 I95.9 Hypotension, unspecified Jon greene M[facility] Plan of Treatment Future Appointment(s):* 01/23/2021 11:00 am - Jon El[facility]ondo [facility] at [facility] Referrals Refer to Reason for Referral Status Appt Date Mick Ching MD Please eval. and treat this patient for positive nuclear stress test, he needs a cardiac cath. Thank you. Created [address] [facility] [address] [place] [address] [phone]
--- OUTSIDE RECORDS SUMMARY | 2021-03-19 12:36 | CCD | Continuity of Care Document ---
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 P.C. AUT [phone] Social History Type Date Description Comments Sex Unknown Allergies and adverse reactions Active Allergies Criticality Reaction | Severity Comments Date Tolmetin Unable to assess criticality 03/28/2020 Medications Active Medications SIG Qnty Indications Ordering Provide r Date Wellbutrin SR 150mg Tablets ER 12H R 1 by mouth twice a day 60tarachele Elizondo M.D.,[facility] 2020 Ipratropium [place]/Albuterol Sulfate 0.5-2.5(3)mg/3ML Solution inhale 1 vial via [...] twice a day 180tabs Jon Elizondo M.D[facility] [place] Extract 150mg Capsules take one tablet by [...] H/L Range Note Comprehensive Metabolic Panel 01/21/2021 [facility] [address] [address] [phone] Comprehensive Metabo (SEE NOTE) 1 Sodium 140 [...] >60 mL/min 2 Laboratory test finding 01/21/[address] [phone] Troponin T 0.07 NG/ML 0.00 - 0.10 3 CBC W/Automated Diff 01/21/[address] [address] [phone] CBC W/Automated Diff (SEE NOTE) 4 WBC [...] Lymph 10.9 % Low 25.0 - 40.0 [place] 7.1 % 3.0 - 8.0 Eos 2.2 % 0.0 - 7.0 Baso 0.5 % 0.0 - 2.0 %Ig 0.2 % High 0.0 - 0.0 %NRBC 0.0 % 0.0 - 0.0 #Neut 4.37 10^3/uL 2.00 - 6.90 #Lymph 0.60 10^3/uL 0.60 - 3.40 #[place] 0.39 10^3/uL 0.00 - 0.90 #Eos 0.12 [...] Normal: Normal 6 Laboratory test finding 01/21/2021 [place] [address] [phone] Magnesium Serum 2.0 mg/dL 1.7 - 2.2 Alcohol Ethyl Blood 01/20/2021 [place] [address] [phone] Alcohol 70.0 mg/dL Alcohol % 0.07 % High 0.00 - 0.01 7 CBC W/Automated Diff 01/20/2021 [place] [address] [phone] CBC W/Automated Diff (SEE NOTE) 8 WBC [...] Lymph 14.2 % Low 25.0 - 40.0 [place] 7.7 % 3.0 - 8.0 Eos 3.2 % 0.0 - 7.0 Baso 0.3 % 0.0 - 2.0 %Ig 0.3 % High 0.0 - 0.0 %NRBC 0.0 % 0.0 - 0.0 #Neut 4.66 10^3/uL 2.00 - 6.90 #Lymph 0.89 10^3/uL 0.60 - 3.40 #[place] 0.48 10^3/uL 0.00 - 0.90 #Eos 0.20 10^3/uL 0.00 - 0.70 #Baso 0.02 10^3/uL 0.00 - 0.20 #Ig 0.02 10^3/uL 0.00 - 0.10 #NRBC 0.00 10^3/uL 0.00 - 0.00 Manual Diff NOT INDICATED RBC Morph NOT INDICATED Laboratory test finding 01/20/[address] [address] [phone] Troponin T 0.03 NG/ML 0.00 - 0.10 9 Comprehensive Metabolic Panel 01/20/2021 [facility] [address] [place] [phone] Comprehensive Metabo (SEE NOTE) 10 Sodium 140 [...] >60 mL/min 11 Laboratory test finding 01/20/[address] [address] [phone] Pro-BNP 6632 pg/mL High 0 - 125 CBC W/Automated Diff 01/08/[address] [address] [phone] CBC W/Automated Diff (SEE NOTE) 12 WBC [...] Lymph 9.1 % Low 25.0 - 40.0 [place] 10.7 % High 3.0 - 8.0 Eos 3.2 % 0.0 - 7.0 Baso 0.8 % 0.0 - 2.0 %Ig 0.2 % High 0.0 - 0.0 %NRBC 0.0 % 0.0 - 0.0 #Neut 3.84 10^3/uL 2.00 - 6.90 #Lymph 0.46 10^3/uL Low 0.60 - 3.40 #[place] 0.54 10^3/uL 0.00 - 0.90 #Eos 0.16 10^3/uL 0.00 - 0.70 #Baso 0.04 10^3/uL 0.00 - 0.20 #Ig 0.01 10^3/uL 0.00 - 0.10 #NRBC 0.00 10^3/uL 0.00 - 0.00 Manual Diff NOT INDICATED RBC Morph NOT INDICATED Comprehensive Metabolic Panel 01/08/2021 [facility] [address] [place] [address] [phone] Comprehensive Metabo (SEE NOTE) 13 Sodium 139 [...] >60 mL/min 14 CBC W/Automated Diff 01/07/[address] [phone] CBC W/Automated Diff (SEE NOTE) 15, 16 [...] Lymph 10.9 % Low 25.0 - 40.0 [place] 9.1 % High 3.0 - 8.0 Eos 3.4 % 0.0 - 7.0 Baso 0.4 % 0.0 - 2.0 %Ig 0.4 % High 0.0 - 0.0 %NRBC 0.0 % 0.0 - 0.0 #Neut 3.77 10^3/uL 2.00 - 6.90 #Lymph 0.54 10^3/uL Low 0.60 - 3.40 #[place] 0.45 10^3/uL 0.00 - 0.90 #Eos 0.17 10^3/uL 0.00 - 0.70 #Baso 0.02 10^3/uL 0.00 - 0.20 #Ig 0.02 10^3/uL 0.00 - 0.10 #NRBC 0.00 10^3/uL 0.00 - 0.00 Manual Diff NOT INDICATED RBC Morph NOT INDICATED Comprehensive Metabolic Panel 01/07/2021 [facility] [address] [place] [address] [phone] Comprehensive Metabo (SEE NOTE) 17 Sodium 139 [...] >60 mL/min 18 Laboratory test finding 01/07/2021 [facility] [address] [place] [phone] Troponin T 0.02 NG/ML 0.00 - 0.10 19 CBC W/Automated Diff 01/06/[address] [address] [phone] CBC W/Automated Diff (SEE NOTE) 20 WBC [...] Lymph 10.5 % Low 25.0 - 40.0 [place] 8.4 % High 3.0 - 8.0 Eos 2.3 % 0.0 - 7.0 Baso 0.3 % 0.0 - 2.0 %Ig 0.3 % High 0.0 - 0.0 %NRBC 0.0 % 0.0 - 0.0 #Neut 4.75 10^3/uL 2.00 - 6.90 #Lymph 0.64 10^3/uL 0.60 - 3.40 #[place] 0.51 10^3/uL 0.00 - 0.90 #Eos 0.14 10^3/uL 0.00 - 0.70 #Baso 0.02 10^3/uL 0.00 - 0.20 #Ig 0.02 10^3/uL 0.00 - 0.10 #NRBC 0.00 10^3/uL 0.00 - 0.00 Manual Diff NOT INDICATED RBC Morph NOT INDICATED Comprehensive Metabolic Panel 01/06/2021 [facility] [address] [place] [address] [phone] Comprehensive Metabo (SEE NOTE) 21 Sodium 141 [...] >60 mL/min 22 Laboratory test finding 01/06/2021 [facility] [address] [place] [address] [phone] Iron 40 g/dL Low 42 - 135 Laboratory test finding 01/05/2021 [facility] [address] [place] [address] [phone] Magnesium Serum 1.8 mg/dL 1.7 - 2.2 CBC W/Automated Diff 01/05/2021 [place] [address] [phone] CBC W/Automated Diff (SEE NOTE) 23 WBC [...] Lymph 11.6 % Low 25.0 - 40.0 [place] 8.5 % High 3.0 - 8.0 Eos 1.7 % 0.0 - 7.0 Baso 0.6 % 0.0 - 2.0 %Ig 0.4 % High 0.0 - 0.0 %NRBC 0.0 % 0.0 - 0.0 #Neut 4.21 10^3/uL 2.00 - 6.90 #Lymph 0.63 10^3/uL 0.60 - 3.40 #[place] 0.46 10^3/uL 0.00 - 0.90 #Eos 0.09 10^3/uL 0.00 - 0.70 #Baso 0.03 10^3/uL 0.00 - 0.20 #Ig 0.02 10^3/uL 0.00 - 0.10 #NRBC 0.00 10^3/uL 0.00 - 0.00 Manual Diff NOT INDICATED RBC Morph NOT INDICATED Comprehensive Metabolic Panel 01/05/2021 [facility] [address] [place], [place] [phone] Comprehensive Metabo (SEE NOTE) 24 Sodium 141 [...] >60 mL/min 25 Laboratory test finding 01/04/2021 [facility] [address] [place] [address] [phone] Troponin T 0.02 NG/ML 0.00 - 0.10 26 Comprehensive Metabolic Panel 01/04/2021 [facility] [address] [place] [address] [phone] Comprehensive Metabo (SEE NOTE) 27 Sodium 142 [...] >60 mL/min 28 CBC W/Automated Diff 01/04/[address] [id number] [phone] CBC W/Automated Diff (SEE NOTE) 29 WBC [...] Lymph 12.8 % Low 25.0 - 40.0 [place] 8.0 % 3.0 - 8.0 Eos 2.1 % 0.0 - 7.0 Baso 0.3 % 0.0 - 2.0 %Ig 0.3 % High 0.0 - 0.0 %NRBC 0.0 % 0.0 - 0.0 #Neut 4.47 10^3/uL 2.00 - 6.90 #Lymph 0.75 10^3/uL 0.60 - 3.40 #[place] 0.47 10^3/uL 0.00 - 0.90 #Eos 0.12 10^3/uL 0.00 - 0.70 #Baso 0.02 10^3/uL 0.00 - 0.20 #Ig 0.02 10^3/uL 0.00 - 0.10 #NRBC 0.00 10^3/uL 0.00 - 0.00 Manual Diff NOT INDICATED RBC Morph NOT INDICATED Laboratory test finding 01/04/2021 [place] [address] [phone] Troponin T 0.02 NG/ML 0.00 - 0.10 30 Laboratory test finding 01/04/2021 [place] [address] [phone] Potassium 4.1 mEq/L 3.6 - 5.0 Laboratory test finding 01/04/2021 [place] [address] [phone] Magnesium Serum 1.8 mg/dL 1.7 - 2.2 Iron 41 g/dL Low 42 - 135 Laboratory test finding 01/03/2021 [place] [address] [phone] Troponin T 0.02 NG/ML 0.00 - 0.10 31 Laboratory test finding 01/03/2021 [place] [address] [phone] Troponin T 0.02 NG/ML 0.00 - 0.10 32 CBC W/Automated Diff 01/03/2021 [place] [address] [phone] CBC W/Automated Diff (SEE NOTE) 33 WBC [...] Lymph 8.7 % Low 25.0 - 40.0 [place] 6.6 % 3.0 - 8.0 Eos 0.9 % 0.0 - 7.0 Baso 0.3 % 0.0 - 2.0 %Ig 0.5 % High 0.0 - 0.0 %NRBC 0.0 % 0.0 - 0.0 #Neut 5.25 10^3/uL 2.00 - 6.90 #Lymph 0.55 10^3/uL Low 0.60 - 3.40 #[place] 0.42 10^3/uL 0.00 - 0.90 #Eos 0.06 10^3/uL 0.00 - 0.70 #Baso 0.02 10^3/uL 0.00 - 0.20 #Ig 0.03 10^3/uL 0.00 - 0.10 #NRBC 0.00 10^3/uL 0.00 - 0.00 Manual Diff NOT INDICATED RBC Morph NOT INDICATED Laboratory test finding 01/03/2021 [facility] [address] [place] [address] [phone] Troponin T 0.02 NG/ML 0.00 - 0.10 34 Pro-BNP 6929 pg/mL High 0 - 125 Comprehensive Metabolic Panel 01/03/2021 [facility] [address] [place] [address] [phone] Comprehensive Metabo (SEE NOTE) 35 Sodium 143 [...] >60 mL/min 36 Laboratory test finding 01/03/[address] [address] [phone] Magnesium Serum 1.9 mg/dL 1.7 - 2.2 37 TSH Highly Sensitive 3.56 uIU/mL 0.47 - 5.01 T4 - Free 1.37 ng/dL 0.93 - 1.70 Cve Panel 12/12/[address] [address] [phone] Cve Panel (SEE NOTE) 38 Cholesterol 108 mg/dL Low 131 - 200 Triglycerides 52 mg/dL 35 - 160 HDL 40 mg/dL 29 - 86 LDL 68 mg/dL 65 - 175 Risk Factor 2.7 Low 3.4 - 4.9 LDL/HDL 1.70 1.00 - 3.55 39 CBC W/Automated Diff 12/12/[address] [address] [phone] CBC W/Automated Diff (SEE NOTE) 40 WBC [...] Lymph 7.8 % Low 25.0 - 40.0 [place] 7.1 % 3.0 - 8.0 Eos 0.7 % 0.0 - 7.0 Baso 0.3 % 0.0 - 2.0 %Ig 0.4 % High 0.0 - 0.0 %NRBC 0.0 % 0.0 - 0.0 #Neut 5.88 10^3/uL 2.00 - 6.90 #Lymph 0.55 10^3/uL Low 0.60 - 3.40 #[place] 0.50 10^3/uL 0.00 - 0.90 #Eos 0.05 10^3/uL 0.00 - 0.70 #Baso 0.02 10^3/uL 0.00 - 0.20 #Ig 0.03 10^3/uL 0.00 - 0.10 #NRBC 0.00 10^3/uL 0.00 - 0.00 Manual Diff NOT INDICATED RBC Morph NOT INDICATED Comprehensive Metabolic Panel 12/12/2020 [facility] [address] [place] [address] [phone] Comprehensive Metabo (SEE NOTE) 41 Sodium 142 [...] >60 mL/min 42 Laboratory test finding [facility] [address] [place] [address] [phone] Magnesium Serum 2.1 mg/dL 1.7 - 2.2 Pro-BNP 7997 pg/mL High 0 - 125 Urinalysis 11/22/[address] [id number] [phone] Urinalysis (SEE NOTE) 43, 44 Source R Color yellow Normal: Yellow Clarity clear Normal: Clear Spec [place] 1.015 1.001 - 1.030 pH 5 5 - 9 Glucose NORM Normal: Negative Bilirubin NEG Normal: Negative Ketone NEG Normal: Negative Protein NEG Normal: Negative Nitrite NEG Normal: Negative Blood NEG Normal: Negative Leuk Est NEG Normal: Negative Urobilinogen NOR less than 1.0 mg/dL Microscopic Not Indicate CBC W/Automated Diff 11/22/[address] [address] [phone] CBC W/Automated Diff (SEE NOTE) 45 WBC [...] Lymph 7.2 % Low 25.0 - 40.0 [place] 5.8 % 3.0 - 8.0 Eos 0.7 % 0.0 - 7.0 Baso 0.1 % 0.0 - 2.0 %Ig 0.4 % High 0.0 - 0.0 %NRBC 0.0 % 0.0 - 0.0 #Neut 5.73 10^3/uL 2.00 - 6.90 #Lymph 0.48 10^3/uL Low 0.60 - 3.40 #[place] 0.39 10^3/uL 0.00 - 0.90 #Eos 0.05 10^3/uL 0.00 - 0.70 #Baso 0.01 10^3/uL 0.00 - 0.20 #Ig 0.03 10^3/uL 0.00 - 0.10 #NRBC 0.00 10^3/uL 0.00 - 0.00 Manual Diff NOT INDICATED RBC Morph NOT INDICATED Laboratory test finding 11/22/2020 [facility] [address] [place] [phone] Hgba1c 5.2 % 4.4 - 6.1 46 Iron 42 g/dL 42 - 135 Magnesium Serum 2.2 mg/dL 1.7 - 2.2 Comprehensive Metabolic Panel 11/22/2020 [facility] [address] [place] [address] [phone] Comprehensive Metabo (SEE NOTE) 47 Sodium 142 [...] GFR 56 mL/min 48 Cve Panel 11/22/2020 [facility] [address] [place] [address] [phone] Cve Panel (SEE NOTE) 49 Cholesterol 109 mg/dL Low 131 - 200 Triglycerides 45 mg/dL 35 - 160 HDL 45 mg/dL 29 - 86 LDL 66 mg/dL 65 - 175 Risk Factor 2.4 Low 3.4 - 4.9 LDL/HDL 1.47 1.00 - 3.55 50 Laboratory test finding 11/22/2020 [facility] [address] [place], [place] 4906455 [phone] TSH Highly Sensitive 3.34 uIU/mL 0.47 - 5.0 1 Pro-BNP 4405 pg/mL High 0 - 125 Urinalysis 07/24/2020 [place] 8453533 [phone] Urinalysis (SEE NOTE) 51, 52 Source R Color yellow Normal: Yellow Clarity clear Normal: Clear Spec [place] 1.015 1.001 - 1.030 pH 5 5 [...] Normal: None Seen Laboratory test finding 07/24/[address] [address] [phone] PSA - Diagnostic 1.01 ng/mL 0.00 - 4.00 53 Cve Panel 07/24/2020 [place] [address] [phone] Cve Panel (SEE NOTE) 54 Cholesterol 133 mg/dL 131 - 200 Triglycerides 82 mg/dL 35 - 160 HDL 55 mg/dL 29 - 86 LDL 72 mg/dL 65 - 175 Risk Factor 2.4 Low 3.4 - 4.9 LDL/HDL 1.31 1.00 - 3.55 55 Basic Metabolic Panel 07/24/2020 [place] 8453539 [phone] Basic Metabolic Pane (SEE NOTE) 56 Sodium [...] Normal Procedures Date Code Description Status 12/24/2020 61459 Office/Outpatient Established Lo w MDM 20-29 Min Completed 12/23/2020 14697 Myocardial Perfusion,WM & Ef Com pleted 12/19/2020 13984 Office/Outpatient Established Mo d MDM 30-39 Min Completed 12/19/2020 25336 EKG Completed 12/17/2020 12676 Office/Outpatient Established Mo d MDM 30-39 Min Completed 12/12/2020 99967 Office/Outpatient Established Mo d MDM 30-39 Min Completed 11/26/2020 67738 Office/Outpatient Established Mo d MDM 30-39 Min Completed 11/26/2020 65833 Echocardiogram, Complete Complet ed 11/26/2020 95234 EKG Completed 11/22/2020 16862 Office/Outpatient Established Mo d MDM 30-39 Min Completed 10/22/2020 05267 Office/Outpatient Established Mo d MDM 30-39 Min Completed Encounters Type Date Location Provider Dx Diagnosis Office Visit 12/24/2020 11:30a [facility] Jon Elizondo M.D.,[facility]. C[facility] I11.9 Hypertensive heart disease without heart failure E78.5 Hyperlipidemia, unspecified I42.9 Cardiomyopathy, unspecified Office Visit 12/19/2020 10:15a [facility] Jon Elizondo M.D.,[facility]. C. I11.9 Hypertensive heart disease without heart failure D50.9 Iron deficiency anemia, unsp ecified E78.5 Hyperlipidemia, unspecified I50.20 Unspecified systolic (conges tive) heart failure I49.49 Other premature depolarizati on Office Visit 12/17/2020 10:15a [facility] Jon Elizondo M.D.,[facility]. C. I11.9 Hypertensive heart disease without heart failure K59.00 Constipation, unspecified I50.20 Unspecified systolic (conges tive) heart failure I42.9 Cardiomyopathy, unspecified Office Visit 12/12/2020 10:00a [facility] Jon Elizondo M.D[facility]. [facility]. I11.9 Hypertensive heart disease without heart failure J43.9 Emphysema, unspecified Office Visit 11/26/2020 10:30a [facility] Jon Elizondo M.D[facility]. C. I50.20 Unspecified systolic (congestive) heart failure I11.9 Hypertensive heart disease w [facility] heart failure J06.9 Acute upper respiratory infe ction, unspecified I42.9 Cardiomyopathy, unspecified I49.49 Other premature depolarizati on Office Visit 11/22/2020 10:00a [facility] Jon Elizondo M.D.,[facility]. C. I50.20 Unspecified systolic (congestive) heart failure I11.9 Hypertensive heart disease w [facility] heart failure E78.5 Hyperlipidemia, unspecified Office Visit 10/22/2020 11:00a [facility] Jon Elizondo M.D.,P. C. I11.9 Hypertensive heart disease without heart failure E78.5 Hyperlipidemia, unspecified I50.20 Unspecified systolic (conges tive) heart failure I95.9 Hypotension, unspecified Assessments Date Code Description Provider 12/24/2020 I11.9 Hypertensive heart disease witho ut heart failure Jon [facility]izondo M[facility] 12/24/2020 E78.5 Hyperlipidemia, unspecified Samreen Elizondo M.D[facility]. 12/24/2020 I42.9 Cardiomyopathy, unspecified Samreen Elizondo M.D[facility] 12/23/2020 I25.10 Atherosclerotic hear t disease of [place] coronary artery without angina pectoris Jon Elizondo M.D[facility]. 12/19/2020 I11.9 Hypertensive heart disease witho nh heart failure Jon Elizondo M.D[facility]. 12/19/2020 D50.9 Iron deficiency anemia, unspecif ied Jon Elizondo M.D[facility]. 12/19/2020 E78.5 Hyperlipidemia, unspecified Samreen Elizondo M.D[facility] 12/19/2020 I50.20 Unspecified systolic (congestive ) heart failure Jon Elizondo M.D[facility] 12/19/2020 I49.49 Other premature depolarization Sandra Elizondo M.D[facility].C. 12/17/2020 I11.9 [facility] Jon [facility]izondo M.[facility] 12/17/2020 K59.00 Constipation, salmaified Jon Elizondo M.D[facility].C. 12/17/2020 I50.20 Unspecified systolic (congestive ) heart failure Jon Elizondo M.D[facility] 12/17/2020 I42.9 Cardiomyopathy, unspecified Samreen Elizondo M.D[facility] 12/12/2020 I11.9 [facility] Jon [facility]izondo [facility] 12/12/2020 J43.9 Emphysema, unspecified Jon silva M.D[facility] 11/26/2020 I50.20 Unspecified systolic (congestive ) heart failure Jon Elizondo M.D[facility] 11/26/2020 I11.9 Hypertensive heart disease witho nh heart failure Jon lEizondo M.D.,P.C. 11/26/2020 J06.9 Acute upper respiratory infectio n, fabrizio Elizondo M.D[facility]. 11/26/2020 I42.9 Cardiomyopathy, unspecified Samreen Elizondo M.D[facility] 11/26/2020 I49.49 Other premature depolarization M sergey Elizondo M.D[facility]. 11/22/2020 I50.20 Unspecified systolic (congestive ) heart failure Jon Elizondo M.D[facility] 11/22/2020 I11.9 Hypertensive heart disease witho nh heart failure Jon Elizondo M.D[facility]. 11/22/2020 E78.5 Hyperlipidemia, unspecified Samreen Elizondo M.D[facility]. 10/22/2020 I11.9 Hypertensive heart disease witho nh heart failure Jon Elizondo M.D[facility]. 10/22/2020 E78.5 Hyperlipidemia, unspecified Samreen Elizondo M.D[facility] 10/22/2020 I50.20 Unspecified systolic (congestive ) heart failure Jon Elizondo M.D[facility] 10/22/2020 I95.9 Hypotension, unspecified Jon greene M.D[facility] Plan of Treatment Future Appointment(s):* 01/23/2021 11:00 am - Jon Elizondo M[facility] at [facility] Referrals Refer to Reason for Referral Status Appt Date Mick Ching MD Please eval. and treat this patient for positive nuclear stress test, he needs a cardiac cath. Thank you. Created [address] [place] [address] [phone]
--- OUTSIDE RECORDS SUMMARY | 2021-03-19 12:37 | CCD | Continuity of Care Document ---
Author Author Adebayo MORA Organization Unknown Address [address] [place] [id number] Phone [phone] Care Team Providers [employer] Name Role Phone [facility] Mick Ching MD AUTM [phone] JON ELIZONDO M.D. P.C. AUT [phone] Social History Type Date Description Comments Sex Unknown Allergies and adverse reactions Active Allergies Criticality Reaction | Severity Comments Date Tolmetin Unable to assess criticality 03/28/2020 Medications Active Medications SIG Qnty Indications Ordering Provide r Date Wellbutrin SR 150mg Tablets ER 12H R 1 by mouth twice a day 60tarachele Elizondo M.D.,[facility] 2020 Ipratropium [place]/Albuterol Sulfate 0.5-2.5(3)mg/3ML Solution inhale 1 vial via [...] twice a day 180tabs Jon Elizondo M.D[facility]P.C. [place] Extract 150mg Capsules take one tablet by [...] Result H/L Range Note Comprehensive Metabolic Panel 01/08/2021 [facility] [address] [id number] [phone] Comprehensive Metabo (SEE NOTE) 1 Sodium 139 mEq/L 134 - 153 Potassium [...] >60 mL/min Afr Amer GFR >60 mL/min 2 CBC W/Automated Diff 01/08/[address] [address] [phone] CBC W/Automated Diff (SEE NOTE) 3 WBC 5.1 10^3/uL 4.2 - 11.0 RBC [...] Lymph 9.1 % Low 25.0 - 40.0 [place] 10.7 % High 3.0 - 8.0 Eos 3.2 % 0.0 - 7.0 Baso 0.8 % 0.0 - 2.0 %Ig 0.2 % High 0.0 - 0.0 %NRBC 0.0 % 0.0 - 0.0 #Neut 3.84 10^3/uL 2.00 - 6.90 #Lymph 0.46 10^3/uL Low 0.60 - 3.40 #[place] 0.54 10^3/uL 0.00 - 0.90 #Eos 0.16 10^3/uL 0.00 - 0.70 #Baso 0.04 10^3/uL 0.00 - 0.20 #Ig 0.01 10^3/uL 0.00 - 0.10 #NRBC 0.00 10^3/uL 0.00 - 0.00 Manual Diff NOT INDICATED RBC Morph NOT INDICATED Laboratory test finding 01/07/2021 [facility] [address] [place] [address] [phone] Troponin T 0.02 NG/ML 0.00 - 0.10 4 Comprehensive Metabolic Panel 01/07/2021 [facility] [address] [place] [address] [phone] Comprehensive Metabo (SEE NOTE) 5, 6 Sodium 139 mEq/L 134 - 153 Potassium [...] >60 mL/min Afr Amer GFR >60 mL/min 7 CBC W/Automated Diff 01/07/[address] [address] [phone] CBC W/Automated Diff (SEE NOTE) 8 WBC 5.0 10^3/uL 4.2 - 11.0 RBC [...] Lymph 10.9 % Low 25.0 - 40.0 [place] 9.1 % High 3.0 - 8.0 Eos 3.4 % 0.0 - 7.0 Baso 0.4 % 0.0 - 2.0 %Ig 0.4 % High 0.0 - 0.0 %NRBC 0.0 % 0.0 - 0.0 #Neut 3.77 10^3/uL 2.00 - 6.90 #Lymph 0.54 10^3/uL Low 0.60 - 3.40 #[place] 0.45 10^3/uL 0.00 - 0.90 #Eos 0.17 10^3/uL 0.00 - 0.70 #Baso 0.02 10^3/uL 0.00 - 0.20 #Ig 0.02 10^3/uL 0.00 - 0.10 #NRBC 0.00 10^3/uL 0.00 - 0.00 Manual Diff NOT INDICATED RBC Morph NOT INDICATED CBC W/Automated Diff 01/06/2021 [place] [phone] CBC W/Automated Diff (SEE NOTE) 9 WBC 6.1 10^3/uL 4.2 - 11.0 RBC [...] Lymph 10.5 % Low 25.0 - 40.0 [place] 8.4 % High 3.0 - 8.0 Eos 2.3 % 0.0 - 7.0 Baso 0.3 % 0.0 - 2.0 %Ig 0.3 % High 0.0 - 0.0 %NRBC 0.0 % 0.0 - 0.0 #Neut 4.75 10^3/uL 2.00 - 6.90 #Lymph 0.64 10^3/uL 0.60 - 3.40 #[place] 0.51 10^3/uL 0.00 - 0.90 #Eos 0.14 10^3/uL 0.00 - 0.70 #Baso 0.02 10^3/uL 0.00 - 0.20 #Ig 0.02 10^3/uL 0.00 - 0.10 #NRBC 0.00 10^3/uL 0.00 - 0.00 Manual Diff NOT INDICATED RBC Morph NOT INDICATED Comprehensive Metabolic Panel 01/06/2021 [facility] [address] [place] [phone] Comprehensive Metabo (SEE NOTE) 10 Sodium 141 mEq/L 134 - 153 Potassium [...] >60 mL/min Afr Amer GFR >60 mL/min 11 Laboratory test finding [facility] [address] [place] [address] [phone] Iron 40 g/dL Low 42 - 135 Comprehensive Metabolic Panel 01/05/2021 [facility] [address] [place] [address] [phone] Comprehensive Metabo (SEE NOTE) 12 Sodium 141 mEq/L 134 - 153 Potassium [...] 54 mL/min Afr Amer GFR >60 mL/min 13 CBC W/Automated Diff 01/05/[address] [address] [phone] CBC W/Automated Diff (SEE NOTE) 14 WBC 5.4 10^3/uL 4.2 - 11.0 RBC [...] Lymph 11.6 % Low 25.0 - 40.0 [place] 8.5 % High 3.0 - 8.0 Eos 1.7 % 0.0 - 7.0 Baso 0.6 % 0.0 - 2.0 %Ig 0.4 % High 0.0 - 0.0 %NRBC 0.0 % 0.0 - 0.0 #Neut 4.21 10^3/uL 2.00 - 6.90 #Lymph 0.63 10^3/uL 0.60 - 3.40 #[place] 0.46 10^3/uL 0.00 - 0.90 #Eos 0.09 10^3/uL 0.00 - 0.70 #Baso 0.03 10^3/uL 0.00 - 0.20 #Ig 0.02 10^3/uL 0.00 - 0.10 #NRBC 0.00 10^3/uL 0.00 - 0.00 Manual Diff NOT INDICATED RBC Morph NOT INDICATED Laboratory test finding 01/05/2021 [place] [address] [phone] Magnesium Serum 1.8 mg/dL 1.7 - 2.2 Laboratory test finding 01/04/2021 [place] [address] [phone] Potassium 4.1 mEq/L 3.6 - 5.0 Laboratory test finding 01/04/2021 [place] [address] [phone] Troponin T 0.02 NG/ML 0.00 - 0.10 15 Laboratory test finding 01/04/2021 [place] [address] [phone] Magnesium Serum 1.8 mg/dL 1.7 - 2.2 Iron 41 g/dL Low 42 - 135 CBC W/Automated Diff 01/04/2021 [place] [address] [phone] CBC W/Automated Diff (SEE NOTE) 16 WBC 5.9 10^3/uL 4.2 - 11.0 RBC [...] Lymph 12.8 % Low 25.0 - 40.0 [place] 8.0 % 3.0 - 8.0 Eos 2.1 % 0.0 - 7.0 Baso 0.3 % 0.0 - 2.0 %Ig 0.3 % High 0.0 - 0.0 %NRBC 0.0 % 0.0 - 0.0 #Neut 4.47 10^3/uL 2.00 - 6.90 #Lymph 0.75 10^3/uL 0.60 - 3.40 #[place] 0.47 10^3/uL 0.00 - 0.90 #Eos 0.12 10^3/uL 0.00 - 0.70 #Baso 0.02 10^3/uL 0.00 - 0.20 #Ig 0.02 10^3/uL 0.00 - 0.10 #NRBC 0.00 10^3/uL 0.00 - 0.00 Manual Diff NOT INDICATED RBC Morph NOT INDICATED Comprehensive Metabolic Panel 01/04/2021 [facility] [address] [place] [address] [phone] Comprehensive Metabo (SEE NOTE) 17 Sodium 142 mEq/L 134 - 153 Potassium [...] GFR >60 mL/min 18 Laboratory test finding 01/04/2021 [facility] [address] [place], [place] [phone] Troponin T 0.02 NG/ML 0.00 - 0.10 19 Laboratory test finding 01/03/2021 [facility] [address] [place], [place] [id number] [phone] Troponin T 0.02 NG/ML 0.00 - 0.10 20 Laboratory test finding 01/03/2021 [facility] [address] [place] [address] [phone] Magnesium Serum 1.9 mg/dL 1.7 - 2.2 21 TSH Highly Sensitive 3.56 uIU/mL 0.47 - 5.01 T4 - Free 1.37 ng/dL 0.93 - 1.70 Comprehensive Metabolic Panel 01/03/2021 [facility] [address] [place] [address] [phone] Comprehensive Metabo (SEE NOTE) 22 Sodium 143 mEq/L 134 - 153 Potassium [...] mL/min Afr Amer GFR >60 mL/min 23 CBC W/Automated Diff 01/03/[address] [address] [phone] CBC W/Automated Diff (SEE NOTE) 24 WBC 6.3 10^3/uL 4.2 - 11.0 RBC [...] Lymph 8.7 % Low 25.0 - 40.0 [place] 6.6 % 3.0 - 8.0 Eos 0.9 % 0.0 - 7.0 Baso 0.3 % 0.0 - 2.0 %Ig 0.5 % High 0.0 - 0.0 %NRBC 0.0 % 0.0 - 0.0 #Neut 5.25 10^3/uL 2.00 - 6.90 #Lymph 0.55 10^3/uL Low 0.60 - 3.40 #[place] 0.42 10^3/uL 0.00 - 0.90 #Eos 0.06 10^3/uL 0.00 - 0.70 #Baso 0.02 10^3/uL 0.00 - 0.20 #Ig 0.03 10^3/uL 0.00 - 0.10 #NRBC 0.00 10^3/uL 0.00 - 0.00 Manual Diff NOT INDICATED RBC Morph NOT INDICATED Laboratory test finding 01/03/2021 [facility] [address] [place] [address] [phone] Troponin T 0.02 NG/ML 0.00 - 0.10 25 Laboratory test finding 01/03/2021 [facility] [address] [place] [phone] Troponin T 0.02 NG/ML 0.00 - 0.10 26 Pro-BNP 6929 pg/mL High 0 - 125 Laboratory test finding 12/12/2020 [facility] [address] [place] [phone] Magnesium Serum 2.1 mg/dL 1.7 - 2.2 Pro-BNP 7997 pg/mL High 0 - 125 Comprehensive Metabolic Panel 12/12/2020 [facility] [address] [place] [phone] Comprehensive Metabo (SEE NOTE) 27 Sodium 142 [...] 59 mL/min Afr Amer GFR >60 mL/min 28 Cve Panel 12/12/[address] [address] [phone] Cve Panel (SEE NOTE) 29 Cholesterol 108 mg/dL Low 131 - 200 Triglycerides 52 mg/dL 35 - 160 HDL 40 mg/dL 29 - 86 LDL 68 mg/dL 65 - 175 Risk Factor 2.7 Low 3.4 - 4.9 LDL/HDL 1.70 1.00 - 3.55 30 CBC W/Automated Diff 12/12/[address] [address] [phone] CBC W/Automated Diff (SEE NOTE) 31 WBC 7.0 10^3/uL 4.2 - 11.0 RBC [...] Lymph 7.8 % Low 25.0 - 40.0 [place] 7.1 % 3.0 - 8.0 Eos 0.7 % 0.0 - 7.0 Baso 0.3 % 0.0 - 2.0 %Ig 0.4 % High 0.0 - 0.0 %NRBC 0.0 % 0.0 - 0.0 #Neut 5.88 10^3/uL 2.00 - 6.90 #Lymph 0.55 10^3/uL Low 0.60 - 3.40 #[place] 0.50 10^3/uL 0.00 - 0.90 #Eos 0.05 10^3/uL 0.00 - 0.70 #Baso 0.02 10^3/uL 0.00 - 0.20 #Ig 0.03 10^3/uL 0.00 - 0.10 #NRBC 0.00 10^3/uL 0.00 - 0.00 Manual Diff NOT INDICATED RBC Morph NOT INDICATED CBC W/Automated Diff 11/22/[address] [address] [phone] CBC W/Automated Diff (SEE NOTE) 32 WBC 6.7 10^3/uL 4.2 - 11.0 RBC [...] Lymph 7.2 % Low 25.0 - 40.0 [place] 5.8 % 3.0 - 8.0 Eos 0.7 % 0.0 - 7.0 Baso 0.1 % 0.0 - 2.0 %Ig 0.4 % High 0.0 - 0.0 %NRBC 0.0 % 0.0 - 0.0 #Neut 5.73 10^3/uL 2.00 - 6.90 #Lymph 0.48 10^3/uL Low 0.60 - 3.40 #[place] 0.39 10^3/uL 0.00 - 0.90 #Eos 0.05 10^3/uL 0.00 - 0.70 #Baso 0.01 10^3/uL 0.00 - 0.20 #Ig 0.03 10^3/uL 0.00 - 0.10 #NRBC 0.00 10^3/uL 0.00 - 0.00 Manual Diff NOT INDICATED RBC Morph NOT INDICATED Laboratory test finding 11/22/2020 [facility] [address] [place] [address] [phone] TSH Highly Sensitive 3.34 uIU/mL 0.47 - 5.0 1 Pro-BNP 4405 pg/mL High 0 - 125 Cve Panel 11/22/[address] [address] [phone] Cve Panel (SEE NOTE) 33 Cholesterol 109 mg/dL Low 131 - 200 Triglycerides 45 mg/dL 35 - 160 HDL 45 mg/dL 29 - 86 LDL 66 mg/dL 65 - 175 Risk Factor 2.4 Low 3.4 - 4.9 LDL/HDL 1.47 1.00 - 3.55 34 Comprehensive Metabolic Panel 11/22/2020 [facility] [address] [place] [address] [phone] Comprehensive Metabo (SEE NOTE) 35 Sodium 142 [...] 46 mL/min Afr Amer GFR 56 mL/min 36 Laboratory test finding 11/22/[address] [address] [phone] Hgba1c 5.2 % 4.4 - 6.1 37 Iron 42 g/dL 42 - 135 Magnesium Serum 2.2 mg/dL 1.7 - 2.2 Urinalysis 11/22/[address] [address] [phone] Urinalysis (SEE NOTE) 38, 39 Source R Color yellow Normal: Yellow Clarity clear Normal: Clear Spec [place] 1.015 1.001 - 1.030 pH 5 5 - 9 Glucose NORM Normal: Negative Bilirubin NEG Normal: Negative Ketone NEG Normal: Negative Protein NEG Normal: Negative Nitrite NEG Normal: Negative Blood NEG Normal: Negative Leuk Est NEG Normal: Negative Urobilinogen NOR less than 1.0 mg/dL Microscopic Not Indicate Urinalysis 07/24/[address] [address] [phone] Urinalysis (SEE NOTE) 40, 41 Source R Color yellow Normal: Yellow Clarity clear Normal: Clear Spec [place] 1.015 1.001 - 1.030 pH 5 5 [...] Normal: None Seen Laboratory test finding 07/24/[address] [address] [phone] PSA - Diagnostic 1.01 ng/mL 0.00 - 4.00 42 Cve Panel 07/24/[address] [address] [phone] Cve Panel (SEE NOTE) 43 Cholesterol 133 mg/dL 131 - 200 Triglycerides 82 mg/dL 35 - 160 HDL 55 mg/dL 29 - 86 LDL 72 mg/dL 65 - 175 Risk Factor 2.4 Low 3.4 - 4.9 LDL/HDL 1.31 1.00 - 3.55 44 Basic Metabolic Panel 07/24/[address] [address] [phone] Basic Metabolic Pane (SEE NOTE) 45 Sodium 139 mEq/L 134 - 153 Potassium [...] GFR >60 mL/min Non-Aa GFR 59 mL/min 46 1 COMPREHENSIVE METABOLIC PANE L 2 Male [...] 80 and above >32 mL/min Normal 3 COMPLETE BLOOD COUNT 4 TROPONIN T 0.1 ng/ml Recommended as the clinical th reshold value for Troponin T. 5 Is patient fasting? N 6 COMPREHENSIVE METABOLIC PANE L 7 Male [...] 80 and above >32 mL/min Normal 8 COMPLETE BLOOD COUNT 9 COMPLETE BLOOD COUNT 10 COMPREHENSIVE METABOLIC [...] 80 and above >32 mL/min Normal 12 COMPREHENSIVE METABOLIC PANE L 13 Male GFR Interprentation 20-49 yrs >60 mL/min Normal 50-59 yrs >56 mL/min Normal 60-69 yrs >49 mL/min Normal 70-79yrs >42 mL/min Normal 80 and above >35 mL/min Normal Female GFR Interpretation 20-39 yrs >60 mL/min Normal 40-49 yrs >58 mL/min Normal 50-59 yrs >51 mL/min Normal 60-69 yrs >45 mL/min Normal 70-79 yrs >39 mL/min Normal 80 and above >32 mL/min Normal 14 COMPLETE BLOOD COUNT 15 TROPONIN T 0.1 ng/ml Recommended as the clinical th reshold value for Troponin T. 16 COMPLETE BLOOD COUNT 17 COMPREHENSIVE METABOLIC [...] th reshold value for Troponin T. 21 Can run on todays blood 22 COMPREHENSIVE METABOLIC PANE L 23 Male [...] mL/min Normal 24 COMPLETE BLOOD COUNT 25 TROPONIN T 0.1 ng/ml Recommended as the clinical th reshold value for Troponin T. 26 TROPONIN T 0.1 ng/ml Recommended as [...] 80 and above >32 mL/min Normal 29 LIPID PANEL 30 CVE RISK CHOL/HDL LDL/HDL MEN: 1/2 AVERAGE 3.43 1.00 AVERAGE 4.97 3.55 2X AVERAGE 9.55 6.25 3X AVERAGE 23.99 7.99 WOMEN: 1/2 AVERAGE 3.27 1.47 AVERAGE 4.44 3.22 2X AVERAGE 7.05 5.03 3X AVERAGE 11.04 6.14 31 COMPLETE BLOOD COUNT 32 COMPLETE BLOOD COUNT 33 LIPID PANEL 34 CVE RISK CHOL/HDL LDL/HDL MEN: 1/2 AVERAGE 3.43 1.00 AVERAGE 4.97 3.55 2X AVERAGE 9.55 6.25 3X AVERAGE 23.99 7.99 WOMEN: 1/2 AVERAGE 3.27 1.47 AVERAGE 4.44 3.22 2X AVERAGE 7.05 5.03 3X AVERAGE 11.04 6.14 35 COMPREHENSIVE METABOLIC PANE L 36 Male [...] 80 and above >32 mL/min Normal 37 {A1] {HB] 38 {SOURCE: Random Void~NURSE COLLECTED? N 39 URINALYSIS 40 FASTING~.~.~<DG1.3.1>R31.21</DG1.3.1><DG1.3.1>R31.21</DG1.3.1><DG1.3.1>R31.21</D G1.3.1><DG1. 41 URINALYSIS 42 \\BLDo\\PSA INTERPRETATION\\BLD x\\ The PSA assay should [...] methods or kits cannot be used interchangeably. 43 LIPID PANEL 44 CVE RISK CHOL/HDL LDL/HDL MEN: 1/2 AVERAGE 3.43 1.00 AVERAGE 4.97 3.55 2X AVERAGE 9.55 6.25 3X AVERAGE 23.99 7.99 WOMEN: 1/2 AVERAGE 3.27 1.47 AVERAGE 4.44 3.22 2X AVERAGE 7.05 5.03 3X AVERAGE 11.04 6.14 45 BASIC METABOLIC PANEL 46 Male GFR Interprentation 20-49 yrs >60 mL/min [...] Normal Procedures Date Code Description Status 12/24/2020 04968 Office/Outpatient Established Lo w MDM 20-29 Min Completed 12/23/2020 96157 Myocardial Perfusion,WM & Ef Com pleted 12/19/2020 39377 Office/Outpatient Established Mo d MDM 30-39 Min Completed 12/19/2020 18363 EKG Completed 12/17/2020 73742 Office/Outpatient Established Mo d MDM 30-39 Min Completed 12/12/2020 09474 Office/Outpatient Established Mo d MDM 30-39 Min Completed 11/26/2020 09642 Office/Outpatient Established Mo d MDM 30-39 Min Completed 11/26/2020 51506 Echocardiogram, Complete Complet ed 11/26/2020 80349 EKG Completed 11/22/2020 14375 Office/Outpatient Established Mo d MDM 30-39 Min Completed 10/22/2020 39432 Office/Outpatient Established Mo d MDM 30-39 Min Completed Encounters Type Date Location Provider Dx Diagnosis Office Visit 12/24/2020 11:30a [facility] Jon Elizondo M[facility] I11.9 Hypertensive heart disease without heart failure E78.5 Hyperlipidemia, unspecified I42.9 Cardiomyopathy, unspecified Office Visit 12/19/2020 10:15a [facility] Obed Elizondo M.D[facility] I11.9 Hypertensive heart disease without heart failure D50.9 Iron deficiency anemia, unsp ecified E78.5 Hyperlipidemia, unspecified I50.20 Unspecified systolic (conges tive) heart failure I49.49 Other premature depolarizati on Office Visit 12/17/2020 10:15a [facility] Obed Elizondo M.D[facility] I11.9 Hypertensive heart disease without heart failure K59.00 Constipation, unspecified I50.20 Unspecified systolic (conges tive) heart failure I42.9 Cardiomyopathy, unspecified Office Visit 12/12/2020 10:00a [facility] Jon Elizondo M.D[facility] I11.9 Hypertensive heart disease without heart failure J43.9 Emphysema, unspecified Office Visit 11/26/2020 10:30a [facility] Jon Elizondo M[facility] I50.20 Unspecified systolic (congestive) heart failure I11.9 Hypertensive heart disease w [facility] heart failure J06.9 Acute upper respiratory infe ction, unspecified I42.9 Cardiomyopathy, unspecified I49.49 Other premature depolarizati on Office Visit 11/22/2020 10:00a [facility] Jon Elizondo M.D[facility] I50.20 Unspecified systolic (congestive) heart failure I11.9 Hypertensive heart disease w [facility] heart failure E78.5 Hyperlipidemia, unspecified Office Visit 10/22/2020 11:00a [facility] Jon Elizondo M.D[facility]. I11.9 Hypertensive heart disease without heart failure E78.5 Hyperlipidemia, unspecified I50.20 Unspecified systolic (conges tive) heart failure I95.9 Hypotension, unspecified Assessments Date Code Description Provider 12/24/2020 I11.9 Hypertensive heart disease witho ut heart failure Jon [facility]izondo [facility] 12/24/2020 E78.5 Hyperlipidemia, unspecified Samreen Elizondo M[facility] 12/24/2020 I42.9 Cardiomyopathy, unspecified Samreen Elizondo M[facility] 12/23/2020 I25.10 Atherosclerotic hear t disease of [place] coronary artery without angina pectoris Jon Elizodno M.D[facility] 12/19/2020 I11.9 Hypertensive heart disease witho ut heart failure Jon Elizondo M[facility] 12/19/2020 D50.9 Iron deficiency anemia, unspecif ied Jon Elizondo M[facility] 12/19/2020 E78.5 Hyperlipidemia, unspecified Samreen Elizondo M[facility] 12/19/2020 I50.20 Unspecified systolic (congestive ) heart failure Jon Elizondo [facility] 12/19/2020 I49.49 Other premature depolarization Sandra Elizondo M.D[facility] 12/17/2020 I11.9 Hypertensive heart disease witho vt heart failure Jon Elizondo [facility] 12/17/2020 K59.00 Constipation, unspecified Jon Elizondo [facility] 12/17/2020 I50.20 Unspecified systolic (congestive ) heart failure Jon Elizondo [facility] 12/17/2020 I42.9 Cardiomyopathy, unspecified Samreen Elizondo M[facility] 12/12/2020 I11.9 Hypertensive heart disease witho vt heart failure Jon Elizondo [facility] 12/12/2020 J43.9 Emphysema, unspecified Jon silva M[facility] 11/26/2020 I50.20 Unspecified systolic (congestive ) heart failure Jon Elizondo [facility] 11/26/2020 I11.9 Hypertensive heart disease witho vt heart failure Jon Elizondo [facility] 11/26/2020 J06.9 Acute upper respiratory infectio n, unspecified Jon Elizondo [facility] 11/26/2020 I42.9 Cardiomyopathy, unspecified Samreen Elizondo [facility] 11/26/2020 I49.49 Other premature depolarization Sandra Elizondo M.D[facility] 11/22/2020 I50.20 Unspecified systolic (congestive ) heart failure Jon Elizondo [facility] 11/22/2020 I11.9 Hypertensive heart disease witho vt heart failure Jon Elizondo [facility] 11/22/2020 E78.5 Hyperlipidemia, unspecified Samreen Elizondo M[facility] 10/22/2020 I11.9 Hypertensive heart disease witho vt heart failure Jon Elizondo [facility] 10/22/2020 E78.5 Hyperlipidemia, unspecified Samreen Elizondo M[facility] 10/22/2020 I50.20 Unspecified systolic (congestive ) heart failure Jon Elizondo [facility] 10/22/2020 I95.9 Hypotension, unspecified Jon greene M.D[facility] Plan of Treatment Future Appointment(s):* 01/23/2021 11:00 am - Jon Elizondo [facility] at [facility] Referrals Refer to Dr Reason for Referral Status Appt Date Mick Ching MD Please eval. and treat this patient for positive nuclear stress test, he needs a cardiac cath. Thank you. Created [address] [place] [address] [phone]
--- OUTSIDE RECORDS SUMMARY | 2021-03-19 12:41 | CCD ---
Author Author [facility] Organization [facility] Address Unknown Phone Unavailable Care Team Providers Care Medicaid Service Coordinator Name Role Phone SYSTEM IN, NOT IN PROVIDER Unavailable Unavailable Shay Odonnell MD Unavailable Unavailable Shay Odonnell MD Unavailable Unavailable Shay Odonnell MD Unavailable Unavailable Shay Odonnell MD Unavailable Unavailable Shay Odonnell MD Unavailable Unavailable Shay Odonnell MD Unavailable Unavailable Shay Odonnell MD Unavailable Unavailable Shay Odonnell MD Unavailable Unavailable Shay Odonnell MD Unavailable Unavailable Shay Odonnell MD Unavailable Unavailable Shay Odonnell MD Unavailable Unavailable Shay Odonnell MD Unavailable Unavailable Shay Odonnell MD Unavailable Unavailable Shay Odonnell MD Unavailable Unavailable Shay Odonnell MD Unavailable Unavailable Shay Odonnell MD Unavailable Unavailable Shay Odonnell MD Unavailable Unavailable Shay Odonnell MD Unavailable Unavailable Shay Odonnell MD Unavailable Unavailable Shay Odonnell MD Unavailable Unavailable Shay Odonnell MD Unavailable Unavailable Shay Odonnell MD Unavailable Unavailable Shay Odonnell MD Unavailable Unavailable Shay Odonnell MD Unavailable Unavailable Shay Odonnell MD Unavailable Unavailable Belle, N Anton MD Unavailable Unavailable Belle, N Anton MD Unavailable Unavailable Belle, N Anton MD Unavailable Unavailable Belle, N Anton MD Unavailable Unavailable Belle, N Anton MD Unavailable Unavailable Belle, N Anton MD Unavailable Unavailable Belle, N Anton MD Unavailable Unavailable Belle, N Anton MD Unavailable Unavailable Belle, N Anton MD Unavailable Unavailable Belle, N Anton MD Unavailable Unavailable Belle, N Anton MD Unavailable Unavailable Belle, N Anton MD Unavailable Unavailable Belle, N Anton MD Unavailable Unavailable Belle, N Anton MD Unavailable Unavailable Belle, N Anton MD Unavailable Unavailable Belle, N Anton MD Unavailable Unavailable Belle, N Anton MD Unavailable Unavailable Belle, N Anton MD Unavailable Unavailable Belle, N Anton MD Unavailable Unavailable Belle, N Anton MD Unavailable Unavailable Belle, N Anton MD Unavailable Unavailable Belle, N Anton MD Unavailable Unavailable Belle, N Anton MD Unavailable Unavailable Belle, N Anton MD Unavailable Unavailable Belle, N Anton MD Unavailable Unavailable Belle, N Anton MD Unavailable Unavailable Belle, N Anton MD Unavailable Unavailable Belle, N Anton MD Unavailable Unavailable Belle, N Anton MD Unavailable Unavailable Belle, N Anton MD Unavailable Unavailable Belle, N Anton MD Unavailable Unavailable Belle, N Anton MD Unavailable Unavailable Belle, N Anton MD Unavailable Unavailable Belle, N Anton MD Unavailable Unavailable Belle, N Anton MD Unavailable Unavailable Belle, N Anton MD Unavailable Unavailable Belle, N Anton MD Unavailable Unavailable Belle, N Anton MD Unavailable Unavailable Belle, N Anton MD Unavailable Unavailable Belle, N Anton MD Unavailable Unavailable Belle, N Anton MD Unavailable Unavailable Belle, N Anton MD Unavailable Unavailable Belle, N Anton MD Unavailable Unavailable Belle, N Anton MD Unavailable Unavailable Belle, N Anton MD Unavailable Unavailable Belle, N Anton MD Unavailable Unavailable Belle, N Anton MD Unavailable Unavailable Belle, N Anton MD Unavailable Unavailable Belle, N Anton MD Unavailable Unavailable Belle, N Anton MD Unavailable Unavailable Belle, N Anton MD Unavailable Unavailable Belle, N Anton MD Unavailable Unavailable Belle, N Anton MD Unavailable Unavailable Belle, N Anton MD Unavailable Unavailable Belle, N Anton MD Unavailable Unavailable Belle, N Anton MD Unavailable Unavailable Belle, N Anton MD Unavailable Unavailable Belle, N Anton MD Unavailable Unavailable Shay Odonnell MD Unavailable Unavailable Shay Odonnell MD Unavailable Unavailable ANDONIADebbie Day MD Unavailable Unavailable ANDONIADebbie Day MD Unavailable Unavailable ANDONIADebbie Day MD Unavailable Unavailable ANDONIANDebbie MD Unavailable Unavailable ANDONIADebbie Day MD Unavailable Unavailable ANDONIADebbie Day MD Unavailable Unavailable ANDONIAN, Debbie BABB MD Unavailable Unavailable ANDONIAN, Debbie BABB MD Unavailable Unavailable JAUREGUI, FRANCIA MD Unavailable Unavailable JAUREGUI, FRANCIA MD Unavailable Unavailable JAUREGUI, FRANCIA MD Unavailable Unavailable JAUREGUI, FRANCIA MD Unavailable Unavailable JAUREGUI, FRANCIA MD Unavailable Unavailable JAUREGUI, FRANCIA MD Unavailable Unavailable JAUREGUI, FRANCIA MD Unavailable Unavailable JAUREGUI, FRANCIA MD Unavailable Unavailable JAUREGUI, FRANCIA MD Unavailable Unavailable JAUREGUI, FRANCIA MD Unavailable Unavailable JAUREGUI, FRANCIA MD Unavailable Unavailable JAUREGUI, FRANCIA MD Unavailable Unavailable JAUREGUI, FRANCIA MD Unavailable Unavailable JAUREGUI, FRANCIA MD Unavailable Unavailable JAUREGUI FRANCIA MD Unavailable Unavailable JAUREGUI, FRANCIA MD Unavailable Unavailable JAUREGUI, FRANCIA MD Unavailable Unavailable JAUREGUI, FRANCIA MD Unavailable Unavailable JAUREGUI, FRANCIA MD Unavailable Unavailable JAUREGUI, FRANCIA MD Unavailable Unavailable JAUREGUI, FRANCIA MD Unavailable Unavailable JAUREGUI, FRANCIA MD Unavailable Unavailable JAUREGUI, FRANCIA MD Unavailable Unavailable JAUREGUI, FRANCIA MD Unavailable Unavailable JAUREGUI, FRANCIA MD Unavailable Unavailable JAUREGUI, FRANCIA MD Unavailable Unavailable JAUREGUI, FRANCIA MD Unavailable Unavailable JAUREGUI, FRANCIA MD Unavailable Unavailable JAUREGUI, FRANCIA MD Unavailable Unavailable JAUREGUI, FRANCIA MD Unavailable Unavailable JAUREGUI, FRANCIA MD Unavailable Unavailable JAUREGUI, FRANCIA MD Unavailable Unavailable JAUREGUI, FRANCIA MD Unavailable Unavailable JAUREGUI, FRANCIA MD Unavailable Unavailable JAUREGUI, FRANCIA MD Unavailable Unavailable JAUREGUI, FRANCIA MD Unavailable Unavailable JAUREGUI, FRANCIA MD Unavailable Unavailable JAUREGUI, FRANCIA MD Unavailable Unavailable JAUREGUI, FRANCIA MD Unavailable Unavailable JAUREGUI, FRANCIA MD Unavailable Unavailable JAUREGUI, FRANCIA MD Unavailable Unavailable JAUREGUI, FRANCIA MD Unavailable Unavailable JAUREGUI, FRANCIA MD Unavailable Unavailable JAUREGUI, FRANCIA MD Unavailable Unavailable JAUREGUI, FRANCIA MD Unavailable Unavailable JAUREGUI, FRANCIA MD Unavailable Unavailable JAUREGUI, FRANCIA MD Unavailable Unavailable JAUREGUI, FRANCIA MD Unavailable Unavailable JAUREGUI, FRANCIA MD Unavailable Unavailable JAUREGUI, FRANCIA MD Unavailable Unavailable JAUREGUI, FRANCIA MD Unavailable Unavailable JAUREGUIFRANCIA BROOKS MD Unavailable Unavailable JAUREGUIFRANCIA BROOKS MD Unavailable Unavailable JAUREGUIFRANCIA BROOKS MD Unavailable Unavailable JAUREGUIFRANCIA BROOKS MD Unavailable Unavailable JAUREGUIFRANCIA BROOKS MD Unavailable Unavailable JAUREGUIFRANCIA BROOKS MD Unavailable Unavailable JAUREGUIFRANCIA BROOKS MD Unavailable Unavailable JAUREGUIFRANCIA BROOKS MD Unavailable Unavailable JAUREGUIFRANCIA BROOKS MD Unavailable Unavailable JAUREGUIFRANCIA BROOKS MD Unavailable Unavailable JAUREGUIFRANCIA BROOKS MD Unavailable Unavailable JAUREGUIFRANCIA BROOKS MD Unavailable Unavailable JAUREGUIFRANCIA BROOKS MD Unavailable Unavailable JAUREGUIFRANCIA BROOKS MD Unavailable Unavailable JAUREGUIFRANCIA BROOKS MD Unavailable Unavailable JAUREGUIFRANCIA BROOKS MD Unavailable Unavailable JAUREGUIFRANCIA BROOKS MD Unavailable Unavailable JAUREGUIFRANCIA BROOKS MD Unavailable Unavailable FRANCIA JAUREGUI MD Unavailable Unavailable JAUREGUIFRANCIA BROOKS MD Unavailable Unavailable FRANCIA JAUREGUI MD Unavailable Unavailable Wilfrid Champagne MD Unavailable Unavailable Wilfrid Champagne MD Unavailable Unavailable Wilfrid Champagne MD Unavailable Unavailable Wilfrid Champagne MD Unavailable Unavailable Wilfrid Champagne MD Unavailable Unavailable Wilfrid Champagne MD Unavailable Unavailable CULNIGEL DANIEL MD Unavailable Unavailable CULEBNIGEL KAYE MD Unavailable Unavailable CULEBNIGEL KAYE MD Unavailable Unavailable CULEBNIGEL KAYE MD Unavailable Unavailable CULEBNIGEL KAYE MD Unavailable Unavailable CULEBRASNIGEL MD Unavailable Unavailable CULEBRASNIGEL MD Unavailable Unavailable CULEBNIGEL KAYE MD Unavailable Unavailable CULEBNIGEL KAYE MD Unavailable Unavailable CULEBNIGEL KAYE MD Unavailable Unavailable CULEBRASNIGEL MD Unavailable Unavailable CULEBNIGEL KAYE MD Unavailable Unavailable CULEBNIGEL KAYE MD Unavailable Unavailable CULEBNIGEL KAYE MD Unavailable Unavailable CULEBNIGEL KAYE MD Unavailable Unavailable CULEBNIGEL KAYE MD Unavailable Unavailable CULEBRASNIGEL MD Unavailable Unavailable CULEBRASNIGEL MD Unavailable Unavailable CULEBRASNIGEL MD Unavailable Unavailable CULEBRASNIGEL MD Unavailable Unavailable CULEBRASNIGEL MD Unavailable Unavailable CULEBRASNIGEL MD Unavailable Unavailable CULEBRASNIGEL MD Unavailable Unavailable CULEBRASNIGEL MD Unavailable Unavailable CULEBRASNIGEL MD Unavailable Unavailable CULEBRASNIGEL MD Unavailable Unavailable CULEBRASNGIEL MD Unavailable Unavailable CULEBRASNIGEL MD Unavailable Unavailable CULEBRASNIGEL MD Unavailable Unavailable CULEBNIGEL KAYE MD Unavailable Unavailable Elly SANTIAGO MD Unavailable Unavailable DULEEP, K MARI AVICTORIA MD Unavailable Unavailable DULEEP, K MARIA VICTORIA MD Unavailable Unavailable DULEEP, K MARIA VICTORIA MD Unavailable Unavailable DULEEP, K MARIA VICTORIA MD Unavailable Unavailable DULEEP, K MARIA VICTORIA MD Unavailable Unavailable DULEEP, K MARIA VICTORIA MD Unavailable Unavailable DULEEP, K MARIA VICTORIA MD Unavailable Unavailable DULEEP, K MARIA VICTORIA MD Unavailable Unavailable DULEEP, K MARIA VICTORIA MD Unavailable Unavailable DULEEP, K MARIA VICTORIA MD Unavailable Unavailable DULEEP, K MARIA VICTORIA MD Unavailable Unavailable DULEEP, K MARIA VICTORIA MD Unavailable Unavailable DULEEP, K MARIA VICTORIA MD Unavailable Unavailable DULEEP, K MARIA VICTORIA MD Unavailable Unavailable DULEEP, K MARIA VICTORIA MD Unavailable Unavailable DULEEP, K MARIA VICTORIA MD Unavailable Unavailable DULEEP, K MARIA VICTORIA MD Unavailable Unavailable DULEEP, K MARIA VICTORIA MD Unavailable Unavailable DULEEP, K MARIA VICTORIA MD Unavailable Unavailable DULEEP, K MARIA VICTORIA MD Unavailable Unavailable DULEEP, K MARIA VICTORIA MD Unavailable Unavailable DULEEP, K MARIA VICTORIA MD Unavailable Unavailable DULEEP, K MARIA VICTORIA MD Unavailable Unavailable DULEEP, K MARIA VICTORIA MD Unavailable Unavailable DULEEP, K MARIA VICTORIA MD Unavailable Unavailable DULEEP, K MARIA VICTORIA MD Unavailable Unavailable DULEEP, K MARIA VICTORIA MD Unavailable Unavailable DULEEP, K MARIA VICTORIA MD Unavailable Unavailable DULEEP, K MARIA VICTORIA MD Unavailable Unavailable DULEEP, K MARIA VICTORIA MD Unavailable Unavailable DULEEP, K MARIA VICTORIA MD Unavailable Unavailable DULEEP, K MARIA VICTORIA MD Unavailable Unavailable DULEEP, K MARIA VICTORIA MD Unavailable Unavailable DULEEP, K MARIA VICTORIA MD Unavailable Unavailable DULEEP, K MARIA VICTORIA MD Unavailable Unavailable DULEEP, K MARIA VICTORIA MD Unavailable Unavailable DULEEP, K MARIA VICTORIA MD Unavailable Unavailable DULEEP, K MARIA VICTORIA MD Unavailable Unavailable DULEEP, K MARIA VICTORIA MD Unavailable Unavailable DULEEP, K MARIA VICTORIA MD Unavailable Unavailable DULEEP, K MARIA VICTORIA MD Unavailable Unavailable DULEEP, K MARIA VICTORIA MD Unavailable Unavailable DULEEP, K MARIA VICTORIA MD Unavailable Unavailable DULEEP, K MARIA VICTORIA MD Unavailable Unavailable DULEEP, K MARIA VICTORIA MD Unavailable Unavailable DULEEP, K MARIA VICTORIA MD Unavailable Unavailable DULEEP, K MARIA VICTORIA MD Unavailable Unavailable DULEEP, K MARIA VICTORIA MD Unavailable Unavailable DULEEP, K MARIA VICTORIA MD Unavailable Unavailable DULEEP, K MARIA VICTORIA MD Unavailable Unavailable DULEEP, K MARIA VICTORIA MD Unavailable Unavailable DULEEP, K MARIA VICTORIA MD Unavailable Unavailable DULEEP, K MARIA VICTORIA MD Unavailable Unavailable DULEEP, K MARIA VICTORIA MD Unavailable Unavailable DULEEP, K MARIA VICTORIA MD Unavailable Unavailable DULEEP, K MARIA VICTORIA MD Unavailable Unavailable DULEEP, K MARIA VICTORIA MD Unavailable Unavailable DULEEP, K MARIA VICTORIA MD Unavailable Unavailable DULEEP, K MARIA VICTORIA MD Unavailable Unavailable DULEEP, K MARIA VICTORIA MD Unavailable Unavailable DULEEP, K MARIA VICTORIA MD Unavailable Unavailable DULEEP, K MARIA VICTORIA MD Unavailable Unavailable CARO, MAQBOOL JON MD Unavailable Unavailable CARO, MAQBOOL JON MD Unavailable Unavailable CARO, MAQBOOL JON MD Unavailable Unavailable CARO, MAQBOOL JON MD Unavailable Unavailable CARO, MAQBOOL JON MD Unavailable Unavailable CARO, MAQBOOL JON MD Unavailable Unavailable CARO, MAQBOOL JON MD Unavailable Unavailable CARO, MAQBOOL JON MD Unavailable Unavailable CARO, MAQBOOL JON MD Unavailable Unavailable CARO, MAQBOOL JON MD Unavailable Unavailable CARO, MAQBOOL JON MD Unavailable Unavailable CARO, MAQBOOL JON MD Unavailable Unavailable CARO, MAQBOOL JON MD Unavailable Unavailable CARO, MAQBOOL JON MD Unavailable Unavailable CARO, MAQBOOL JON MD Unavailable Unavailable CARO, MAQBOOL JON MD Unavailable Unavailable CARO, MAQBOOL JON MD Unavailable Unavailable CARO, MAQBOOL JON MD Unavailable Unavailable CARO, MAQBOOL JON MD Unavailable Unavailable CARO, MAQBOOL JON MD Unavailable Unavailable CARO, MAQBOOL JON MD Unavailable Unavailable CARO, MAQBOOL JON MD Unavailable Unavailable CARO, MAQBOOL JON MD Unavailable Unavailable CARO, MAQBOOL JON MD Unavailable Unavailable CARO, MAQBOOL JON MD Unavailable Unavailable CARO, MAQBOOL JON MD Unavailable Unavailable CARO, MAQBOOL JON MD Unavailable Unavailable CARO, MAQBOOL JON MD Unavailable Unavailable CARO, MAQBOOL JON MD Unavailable Unavailable CARO, MAQBOOL JON MD Unavailable Unavailable CARO, MAQBOOL JON MD Unavailable Unavailable CARO, MAQBOOL JON MD Unavailable Unavailable CARO, MAQBOOL JON MD Unavailable Unavailable CARO, MAQBOOL JON MD Unavailable Unavailable CARO, MAQBOOL JON MD Unavailable Unavailable CARO, MAQBOOL JON MD Unavailable Unavailable CARO, MAQBOOL JON MD Unavailable Unavailable CARO, MAQBOOL JON MD Unavailable Unavailable CARO, MAQBOOL JON MD Unavailable Unavailable CARO, MAQBOOL JON MD Unavailable Unavailable CARO, MAQBOOL JON MD Unavailable Unavailable CARO, MAQBOOL JON MD Unavailable Unavailable CARO, MAQBOOL JON MD Unavailable Unavailable CARO, MAQBOOL JON MD Unavailable Unavailable CARO, MAQBOOL JON MD Unavailable Unavailable CARO, MAQBOOL JON MD Unavailable Unavailable CARO, MAQBOOL JON MD Unavailable Unavailable CARO, MAQBOOL JON MD Unavailable Unavailable CARO, MAQBOOL JON MD Unavailable Unavailable CARO, MAQBOOL JON MD Unavailable Unavailable CARO, MAQBOOL JON MD Unavailable Unavailable CARO, MAQBOOL JON MD Unavailable Unavailable CARO, MAQBOOL JON MD Unavailable Unavailable CARO, MAQBOOL JON MD Unavailable Unavailable CARO, MAQBOOL JON MD Unavailable Unavailable CARO, MAQBOOL JON MD Unavailable Unavailable CARO, MAQBOOL JON MD Unavailable Unavailable CARO, MAQBOOL JON MD Unavailable Unavailable CARO, MAQBOOL JON MD Unavailable Unavailable CARO, MAQBOOL JON MD Unavailable Unavailable CARO, MAQBOOL JON MD Unavailable Unavailable CARO, MAQBOOL JON MD Unavailable Unavailable CARO, MAQBOOL JON MD Unavailable Unavailable CARO, MAQBOOL JON MD Unavailable Unavailable CARO, MAQBOOL JON MD Unavailable Unavailable CARO, MAQBOOL JON MD Unavailable Unavailable CARO, MAQBOOL JON MD Unavailable Unavailable CARO, MAQBOOL JON MD Unavailable Unavailable CARO, MAQBOOL JON MD Unavailable Unavailable CARO, MAQBOOL JON MD Unavailable Unavailable CARO, MAQBOOL JON MD Unavailable Unavailable CARO, MAQBOOL JON MD Unavailable Unavailable CARO, MAQBOOL JON MD Unavailable Unavailable CARO, MAQBOOL JON MD Unavailable Unavailable CARO, MAQBOOL JON MD Unavailable Unavailable CARO, MAQBOOL JON MD Unavailable Unavailable CARO, MAQBOOL JON MD Unavailable Unavailable CARO, MAQBOOL JON MD Unavailable Unavailable CARO, MAQBOOL JON MD Unavailable Unavailable Loveless, A Citlaly MOBILE SECURITY SPECIALIST Unavailable Unavailable Loveless, A Citlaly MOBILE SECURITY SPECIALIST Unavailable Unavailable Loveless, A Citlaly MOBILE SECURITY SPECIALIST Unavailable Unavailable Loveless, A Citlaly MOBILE SECURITY SPECIALIST Unavailable Unavailable Loveless, A Citlaly MOBILE SECURITY SPECIALIST Unavailable Unavailable Loveless, A Citlaly MOBILE SECURITY SPECIALIST Unavailable Unavailable Loveless, A Citlaly MOBILE SECURITY SPECIALIST Unavailable Unavailable Loveless, A Citlaly MOBILE SECURITY SPECIALIST Unavailable Unavailable Loveless, A Citlaly MOBILE SECURITY SPECIALIST Unavailable Unavailable Loveless, A Citlaly MOBILE SECURITY SPECIALIST Unavailable Unavailable Loveless, A Citlaly MOBILE SECURITY SPECIALIST Unavailable Unavailable Loveless, A Citlaly MOBILE SECURITY SPECIALIST Unavailable Unavailable Loveless, A Citlaly MOBILE SECURITY SPECIALIST Unavailable Unavailable Loveless, A Citlaly MOBILE SECURITY SPECIALIST Unavailable Unavailable Loveless, A Citlaly MOBILE SECURITY SPECIALIST Unavailable Unavailable Loveless, A Citlaly MOBILE SECURITY SPECIALIST Unavailable Unavailable Loveless, A Citlaly MOBILE SECURITY SPECIALIST Unavailable Unavailable Loveless, A Citlaly MOBILE SECURITY SPECIALIST Unavailable Unavailable Loveless, A Citlaly MOBILE SECURITY SPECIALIST Unavailable Unavailable Loveless, A Citlaly MOBILE SECURITY SPECIALIST Unavailable Unavailable Loveless, A Citlaly MOBILE SECURITY SPECIALIST Unavailable Unavailable Loveless, A Citlaly MOBILE SECURITY SPECIALIST Unavailable Unavailable Loveless, A Citlaly MOBILE SECURITY SPECIALIST Unavailable Unavailable Loveless, A Citlaly MOBILE SECURITY SPECIALIST Unavailable Unavailable Loveless, A Citlaly MOBILE SECURITY SPECIALIST Unavailable Unavailable Loveless, A Citlaly MOBILE SECURITY SPECIALIST Unavailable Unavailable Loveless, A Citlaly MOBILE SECURITY SPECIALIST Unavailable Unavailable Loveless, A Citlaly MOBILE SECURITY SPECIALIST Unavailable Unavailable Loveless, A Citlaly MOBILE SECURITY SPECIALIST Unavailable Unavailable Loveless, A Citlaly MOBILE SECURITY SPECIALIST Unavailable Unavailable Loveless, A Citlaly MOBILE SECURITY SPECIALIST Unavailable Unavailable Narendra, Liliam PA Unavailable Unavailable Narendra, Liliam PA Unavailable Unavailable Narendra, Liliam PA Unavailable Unavailable Narendra, Liliam PA Unavailable Unavailable Narendra, Liliam PA Unavailable Unavailable Narendra, Liliam PA Unavailable Unavailable Narendra, Liliam PA Unavailable Unavailable Narendra, Liliam PA Unavailable Unavailable Narendra, Liliam PA Unavailable Unavailable Narendra, Liliam PA Unavailable Unavailable Narendra, Liliam PA Unavailable Unavailable Narendra, Liliam PA Unavailable Unavailable Narendra, Liliam PA Unavailable Unavailable Narendra, Liliam PA Unavailable Unavailable Narendra, Liliam PA Unavailable Unavailable Narendra, Liliam PA Unavailable Unavailable Narendra, Liliam PA Unavailable Unavailable Narendra, Liliam PA Unavailable Unavailable Narendra, Liliam PA Unavailable Unavailable Narendra, Liliam PA Unavailable Unavailable Narendra, Liliam PA Unavailable Unavailable Narendra, Liliam PA Unavailable Unavailable Narendra, Liliam PA Unavailable Unavailable Narendra, Liliam PA Unavailable Unavailable Narendra, Liliam PA Unavailable Unavailable Narendra, Liliam PA Unavailable Unavailable Narendra, Liliam PA Unavailable Unavailable Narendra, Liliam PA Unavailable Unavailable Narendra, Liliam PA Unavailable Unavailable Narendra, Liliam PA Unavailable Unavailable Narendra, Liliam PA Unavailable Unavailable Narendra, Liliam PA Unavailable Unavailable Narendra, Liliam PA Unavailable Unavailable Narendra, Liliam PA Unavailable Unavailable Narendra, Liliam PA Unavailable Unavailable Narendra, Liliam PA Unavailable Unavailable Narendra, Liliam PA Unavailable Unavailable Narendra, Liliam PA Unavailable Unavailable Narendra, Liliam PA Unavailable Unavailable Narendra, Liliam PA Unavailable Unavailable Narendra, Liliam PA Unavailable Unavailable Narendra, Liliam PA Unavailable Unavailable Narendra, Liliam PA Unavailable Unavailable Narendra, Liliam PA Unavailable Unavailable Narendra, Liliam PA Unavailable Unavailable Narendra, Liliam PA Unavailable Unavailable Narendra, Liliam PA Unavailable Unavailable Narendra, Liliam PA Unavailable Unavailable Anrendra, Liliam PA Unavailable Unavailable Narendra, Liliam PA Unavailable Unavailable Narendra, Liliam PA Unavailable Unavailable Narnedra, Liliam PA Unavailable Unavailable FRANCIA JAUREGUI MD Unavailable Unavailable FRANCIA JAUREGUI MD Unavailable Unavailable FRANCIA JAUREGUI MD Unavailable Unavailable FRANCIA JAUREGUI MD Unavailable Unavailable FRANCIA JAUREGUI MD Unavailable Unavailable FRANCIA JAUREGUI MD Unavailable Unavailable FRANCIA JAUREGUI MD Unavailable Unavailable JAUREGUI, FRANCIA MD Unavailable Unavailable JAUREGUI, FRANCIA MD Unavailable Unavailable JAUREGUI, FRANCIA MD Unavailable Unavailable JAUREGUI, FRANCIA MD Unavailable Unavailable JAUREGUI, FRANCIA MD Unavailable Unavailable JAUREGUI, FRANCIA MD Unavailable Unavailable JAUREGUI, FRANCIA MD Unavailable Unavailable JAUREGUI, FRANCIA MD Unavailable Unavailable JAUREGUI, FRANCIA MD Unavailable Unavailable JAUREGUI, FRANCIA MD Unavailable Unavailable JAUREGUI, FRANCIA MD Unavailable Unavailable JAUREGUI, FRANCIA MD Unavailable Unavailable JAUREGUI, FRANCIA MD Unavailable Unavailable JAUREGUI, FRANCIA MD Unavailable Unavailable JAUREGUI, FRANCIA MD Unavailable Unavailable JAUREGUI, FRANCIA MD Unavailable Unavailable JAUREGUI, FRANCIA MD Unavailable Unavailable JAUREGUI, FRANCIA MD Unavailable Unavailable JAUREGUI, FRANCIA MD Unavailable Unavailable JAUREGUI, FRANCIA MD Unavailable Unavailable JAUREGUI, FRANCIA MD Unavailable Unavailable JAUREGUI, FRANCIA MD Unavailable Unavailable JAUREGUI, FRANCIA MD Unavailable Unavailable JAUREGUI, FRANCIA MD Unavailable Unavailable JAUREGUI, FRANCIA MD Unavailable Unavailable JAUREGUI, FRANCIA MD Unavailable Unavailable JAUREGUI, FRANCIA MD Unavailable Unavailable JAUREGUI, FRANCIA MD Unavailable Unavailable JAUREGUI, FRANCIA MD Unavailable Unavailable JAUREGUI, FRANCIA MD Unavailable Unavailable JAUREGUI, FRANCIA MD Unavailable Unavailable JAUREGUI, FRANCIA MD Unavailable Unavailable JAUREGUI, FRANCIA MD Unavailable Unavailable JAUREGUI, FRANCIA MD Unavailable Unavailable JAUREGUI, FRANCIA MD Unavailable Unavailable JAUREGUI, FRANCIA MD Unavailable Unavailable JAUREGUI, FRANCIA MD Unavailable Unavailable JAUREGUI, FRANCIA MD Unavailable Unavailable JAUREGUI, FRANCIA MD Unavailable Unavailable JAUREGUI, FRANCIA MD Unavailable Unavailable JAUREGUI, FRANCIA MD Unavailable Unavailable JAUREGUI, FRANCIA MD Unavailable Unavailable JAUREGUI, FRANCIA MD Unavailable Unavailable JAUREGUI, FRANCIA MD Unavailable Unavailable JAUREGUI, FRANCIA MD Unavailable Unavailable JAUREGUI, FRANCIA MD Unavailable Unavailable JAUREGUI, FRANCIA MD Unavailable Unavailable JAUREGUI, FRANCIA MD Unavailable Unavailable JAUREGUI, FRANCIA MD Unavailable Unavailable JAUREGUI, FRANCIA MD Unavailable Unavailable JAUREGUI, FRANCIA MD Unavailable Unavailable JAUREGUI, FRANCIA MD Unavailable Unavailable JAUREGUI, FRANCIA MD Unavailable Unavailable JAUREGUI, FRANCIA MD Unavailable Unavailable JAUREGUI, FRANCIA MD Unavailable Unavailable JAUREGUI, FRANCIA MD Unavailable Unavailable JAUREGUI, FRANCIA MD Unavailable Unavailable JAUREGUI, FRANCIA MD Unavailable Unavailable JAUREGUI, FRANCIA MD Unavailable Unavailable JAUREGUI, FRANCIA MD Unavailable Unavailable JAUREGUI, FRANCIA MD Unavailable Unavailable JAUREGUI, FRANCIA MD Unavailable Unavailable JAUREGUI, FRANCIA MD Unavailable Unavailable JAUREGUI, FRANCIA MD Unavailable Unavailable FRANCIA JAUREGUI MD Unavailable Unavailable CARO, MAQBOOL JON MD Unavailable Unavailable CARO, MAQBOOL JON MD Unavailable Unavailable CARO, MAQBOOL JON MD Unavailable Unavailable CARO, MAQBOOL JON MD Unavailable Unavailable CARO, MAQBOOL JON MD Unavailable Unavailable CARO, MAQBOOL JON MD Unavailable Unavailable CARO, MAQBOOL JON MD Unavailable Unavailable CARO, MAQBOOL JON MD Unavailable Unavailable CARO, MAQBOOL JON MD Unavailable Unavailable CARO, MAQBOOL JON MD Unavailable Unavailable CARO, MAQBOOL JON MD Unavailable Unavailable CARO, MAQBOOL JON MD Unavailable Unavailable CARO, MAQBOOL JON MD Unavailable Unavailable CARO, MAQBOOL JON MD Unavailable Unavailable CARO, MAQBOOL JON MD Unavailable Unavailable CARO, MAQBOOL JON MD Unavailable Unavailable CARO, MAQBOOL JON MD Unavailable Unavailable CARO, MAQBOOL JON MD Unavailable Unavailable CARO, MAQBOOL JON MD Unavailable Unavailable CARO, MAQBOOL JON MD Unavailable Unavailable CARO, MAQBOOL JON MD Unavailable Unavailable CARO, MAQBOOL JON MD Unavailable Unavailable CARO, MAQBOOL JON MD Unavailable Unavailable CARO, MAQBOOL JON MD Unavailable Unavailable CARO, MAQBOOL JON MD Unavailable Unavailable CARO, MAQBOOL JON MD Unavailable Unavailable CARO, MAQBOOL JON MD Unavailable Unavailable CARO, MAQBOOL JON MD Unavailable Unavailable CARO, MAQBOOL JON MD Unavailable Unavailable CARO, MAQBOOL JON MD Unavailable Unavailable CARO, MAQBOOL JON MD Unavailable Unavailable CARO, MAQBOOL JON MD Unavailable Unavailable CARO, MAQBOOL JON MD Unavailable Unavailable CARO, MAQBOOL JON MD Unavailable Unavailable CARO, MAQBOOL JON MD Unavailable Unavailable CARO, MAQBOOL JON MD Unavailable Unavailable CARO, MAQBOOL JON MD Unavailable Unavailable CARO, MAQBOOL JON MD Unavailable Unavailable CARO, MAQBOOL JON MD Unavailable Unavailable CARO, MAQBOOL JON MD Unavailable Unavailable CARO, MAQBOOL JON MD Unavailable Unavailable CARO, MAQBOOL JON MD Unavailable Unavailable CARO, MAQBOOL JON MD Unavailable Unavailable CARO, MAQBOOL JON MD Unavailable Unavailable CARO, MAQBOOL JON MD Unavailable Unavailable CARO, MAQBOOL JON MD Unavailable Unavailable CARO, MAQBOOL JON MD Unavailable Unavailable CARO, MAQBOOL JON MD Unavailable Unavailable CARO, MAQBOOL JON MD Unavailable Unavailable CARO, MAQBOOL JON MD Unavailable Unavailable CARO, MAQBOOL JON MD Unavailable Unavailable CARO, MAQBOOL JON MD Unavailable Unavailable CARO, MAQBOOL JON MD Unavailable Unavailable CARO, MAQBOOL JON MD Unavailable Unavailable CARO, MAQBOOL JON MD Unavailable Unavailable CARO, MAQBOOL JON MD Unavailable Unavailable CARO, MAQBOOL JON MD Unavailable Unavailable CARO, MAQBOOL JON MD Unavailable Unavailable CARO, MAQBOOL JON MD Unavailable Unavailable CARO, MAQBOOL JON MD Unavailable Unavailable CARO, MAQBOOL JON MD Unavailable Unavailable CARO, MAQBOOL JON MD Unavailable Unavailable CARO, MAQBOOL JON MD Unavailable Unavailable CARO, MAQBOOL JON MD Unavailable Unavailable CARO, MAQBOOL JON MD Unavailable Unavailable CARO, MAQBOOL JON MD Unavailable Unavailable CARO, MAQBOOL JON MD Unavailable Unavailable CARO, MAQBOOL JON MD Unavailable Unavailable CARO, MAQBOOL JON MD Unavailable Unavailable CARO, MAQBOOL JON MD Unavailable Unavailable CARO, MAQBOOL JON MD Unavailable Unavailable CARO, MAQBOOL JON MD Unavailable Unavailable CARO, MAQBOOL JON MD Unavailable Unavailable CARO, MAQBOOL JON MD Unavailable Unavailable CARO, MAQBOOL JON MD Unavailable Unavailable CARO, MAQBOOL JON MD Unavailable Unavailable ACRONGUYEN WALLERQTYSONOL JON MD Unavailable Unavailable CARO, MAQBOOL JON MD Unavailable Unavailable CARO, MAQBOOL JON MD Unavailable Unavailable TURRIN, ANGIE Unavailable Unavailable TURRIN, ANGIE Unavailable Unavailable TURRIN, ANGIE Unavailable Unavailable TURRIN, ANGIE Unavailable Unavailable Belle, N Anton MD Unavailable Unavailable Belle, N Anton MD Unavailable Unavailable Belle, N Anton MD Unavailable Unavailable Belle N Anton MD Unavailable Unavailable Belle N Anton MD Unavailable Unavailable Belle, N Anton MD Unavailable Unavailable Belle N Anton MD Unavailable Unavailable Belle N Anton MD Unavailable Unavailable Belle N Anton MD Unavailable Unavailable Belle N Anton MD Unavailable Unavailable Belle N Anton MD Unavailable Unavailable Belle N Anton MD Unavailable Unavailable Belle N Anton MD Unavailable Unavailable Belle N Anton MD Unavailable Unavailable Belle, N Anton MD Unavailable Unavailable Belle N Anton MD Unavailable Unavailable Belle N Anton MD Unavailable Unavailable Belle N Anton MD Unavailable Unavailable Belle N Anton MD Unavailable Unavailable Belle, N Anton MD Unavailable Unavailable Belle N Anton MD Unavailable Unavailable Belle, N Anton MD Unavailable Unavailable Belle N Anton MD Unavailable Unavailable Belle, N Anton MD Unavailable Unavailable Belle N Anton MD Unavailable Unavailable Belle N Anton MD Unavailable Unavailable Belle, N Anton MD Unavailable Unavailable Belle, N Anton MD Unavailable Unavailable Belle, N Anton MD Unavailable Unavailable Belle N Anton MD Unavailable Unavailable Belle N Anton MD Unavailable Unavailable Belle N Anton MD Unavailable Unavailable Belle N Anton MD Unavailable Unavailable Belle, N Anton MD Unavailable Unavailable Belle N Anton MD Unavailable Unavailable Belle, N Anton MD Unavailable Unavailable Belle, N Anton MD Unavailable Unavailable Belle N Anton MD Unavailable Unavailable Blele N Anton MD Unavailable Unavailable Belle N Anton MD Unavailable Unavailable Belle, N Anton MD Unavailable Unavailable Belle, N Anton MD Unavailable Unavailable Belle, N Anton MD Unavailable Unavailable Eblle, N Anton MD Unavailable Unavailable Belle N Anton MD Unavailable Unavailable Belle N Anton MD Unavailable Unavailable Belle N Anton MD Unavailable Unavailable Belle, N Anton MD Unavailable Unavailable Belle, N Anton MD Unavailable Unavailable Belle, N Anton MD Unavailable Unavailable Belle, N Anton MD Unavailable Unavailable Belle, N Anton MD Unavailable Unavailable Belle, N Anton MD Unavailable Unavailable Belle, N Anton MD Unavailable Unavailable Belle, N Anton MD Unavailable Unavailable Belle, N Anton MD Unavailable Unavailable Belle, N Anton MD Unavailable Unavailable Belle, N Anton MD Unavailable Unavailable Belle, N Anton MD Unavailable Unavailable Belle, N Anton MD Unavailable Unavailable Belle, N Anton MD Unavailable Unavailable Belle, N Anton MD Unavailable Unavailable Belle, N Anton MD Unavailable Unavailable Belle, N Anton MD Unavailable Unavailable Belle, N Anton MD Unavailable Unavailable Belle, N Anton MD Unavailable Unavailable Belle, N Anton MD Unavailable Unavailable Belle, N Anton MD Unavailable Unavailable Belle, N Anton MD Unavailable Unavailable Belle, N Anton MD Unavailable Unavailable Belle, N Anton MD Unavailable Unavailable Belle, N Anton MD Unavailable Unavailable Belle, N Anton MD Unavailable Unavailable Belle, N Anton MD Unavailable Unavailable Belle, N Anton MD Unavailable Unavailable Belle, N Anton MD Unavailable Unavailable Belle, N Anton MD Unavailable Unavailable Belle, N Anton MD Unavailable Unavailable Belle, N Anton MD Unavailable Unavailable Belle, N Anton MD Unavailable Unavailable Belle, N Anton MD Unavailable Unavailable Belle, N Anton MD Unavailable Unavailable Belle, N Anton MD Unavailable Unavailable Belle, N Anton MD Unavailable Unavailable Belle, N Anton MD Unavailable Unavailable Danis CHING MD Unavailable Unavailable Danis CHING MD Unavailable Unavailable Danis CHING MD Unavailable Unavailable Danis CHING MD Unavailable Unavailable Danis CHING MD Unavailable Unavailable Danis CHING MD Unavailable Unavailable Danis CHING MD Unavailable Unavailable Danis CHING MD Unavailable Unavailable Danis CHING MD Unavailable Unavailable Danis CHING MD Unavailable Unavailable Danis CHING MD Unavailable Unavailable Danis CHING MD Unavailable Unavailable Danis CHING MD Unavailable Unavailable Danis CHING MD Unavailable Unavailable IFRAH, S AYMAN MD Unavailable Unavailable IFRAH, S AYMAN MD Unavailable Unavailable IFRAH, S AYMAN MD Unavailable Unavailable IFRAH, S AYMAN MD Unavailable Unavailable IFRAH, S AYMAN MD Unavailable Unavailable IFRAH, S AYMAN MD Unavailable Unavailable IFRAH, S AYMAN MD Unavailable Unavailable IFRAH, S AYMAN MD Unavailable Unavailable IFRAH, S AYMAN MD Unavailable Unavailable IFRAH, S AYMAN MD Unavailable Unavailable IFRAH, S AYMAN MD Unavailable Unavailable IFRAH, S AYMAN MD Unavailable Unavailable IFRAH, S AYMAN MD Unavailable Unavailable IFRAH, S AYMAN MD Unavailable Unavailable IFRAH, S AYMAN MD Unavailable Unavailable IFRAH, S AYMAN MD Unavailable Unavailable IFRAH, S AYMAN MD Unavailable Unavailable IFRAH, S AYMAN MD Unavailable Unavailable IFRAH, S AYMAN MD Unavailable Unavailable IFRAH, S AYMAN MD Unavailable Unavailable IFRAH, S AYMAN MD Unavailable Unavailable IFRAH, S AYMAN MD Unavailable Unavailable IFRAH, S AYMAN MD Unavailable Unavailable IFRAH, S AYMAN MD Unavailable Unavailable IFRAH, S AYMAN MD Unavailable Unavailable IFRAH, S AYMAN MD Unavailable Unavailable IFRAH, S AYMAN MD Unavailable Unavailable IFRAH, S AYMAN MD Unavailable Unavailable IFRAH, S AYMAN MD Unavailable Unavailable IFRAH, S AYMAN MD Unavailable Unavailable IFRAH, S AYMAN MD Unavailable Unavailable IFRAH, S AYMAN MD Unavailable Unavailable IFRAH, S AYMAN MD Unavailable Unavailable IFRAH, S AYMAN MD Unavailable Unavailable IFRAH, S AYMAN MD Unavailable Unavailable IFRAH, S AYMAN MD Unavailable Unavailable IFRAH, S AYMAN MD Unavailable Unavailable IFRAH, S AYMAN MD Unavailable Unavailable IFRAH, S AYMAN MD Unavailable Unavailable IFRAH, S AYMAN MD Unavailable Unavailable IFRAH, S AYMAN MD Unavailable Unavailable IFRAH, S AYMAN MD Unavailable Unavailable IFRAH, S AYMAN MD Unavailable Unavailable IFRAH, S AYMAN MD Unavailable Unavailable IFRAH, S AYMAN MD Unavailable Unavailable IFRAH, S AYMAN MD Unavailable Unavailable IFRAH, S AYMAN MD Unavailable Unavailable IFRAH, S AYMAN MD Unavailable Unavailable IFRAH, S AYMAN MD Unavailable Unavailable IFRAH, S AYMAN MD Unavailable Unavailable IFRAH, S AYMAN MD Unavailable Unavailable IFRAH, S AYMAN MD Unavailable Unavailable IFRAH, S AYMAN MD Unavailable Unavailable IFRAH, S AYMAN MD Unavailable Unavailable IFRAH, S AYMAN MD Unavailable Unavailable IFRAH, S AYMAN MD Unavailable Unavailable IFRAH, S AYMAN MD Unavailable Unavailable IFRAH, S AYMAN MD Unavailable Unavailable IFRAH, S AYMAN MD Unavailable Unavailable IFRAH, S AYMAN MD Unavailable Unavailable IFRAH, S AYMAN MD Unavailable Unavailable IFRAH, S AYMAN MD Unavailable Unavailable IFRAH, S AYMAN MD Unavailable Unavailable IFRAH, S AYMAN MD Unavailable Unavailable IFRAH, S AYMAN MD Unavailable Unavailable IFRAH, S AYMAN MD Unavailable Unavailable IFRAH, S AYMAN MD Unavailable Unavailable IFRAH, S AYMAN MD Unavailable Unavailable IFRAH, S AYMAN MD Unavailable Unavailable IFRAH, S AYMAN MD Unavailable Unavailable IFRAH, S AYMAN MD Unavailable Unavailable IFRAH, S AYMAN MD Unavailable Unavailable IFRAH, S AYMAN MD Unavailable Unavailable Re-disclosure Warning The records that you are about to access may contain information from federally-assisted alcohol or drug abuse programs. If such information is present, then the following federally mandated warning applies: This information has been disclosed to you from records protected by federal confidentiality rules (42 CFR part 2). The federal rules prohibit you from making any further disclosure of this information unless further disclosure is expressly permitted by the written consent of the person to whom it pertains or as otherwise permitted by 42 CFR part 2. A general authorization for the release of medical or other information is NOT sufficient for this purpose. The Federal rules restrict any use of the information to criminally investigate or prosecute any alcohol or drug abuse patient.The records that you are about to access may contain highly sensitive health information, the redisclosure of which is protected by Article 27-F of the [place] Public Health law. If you continue you may have access to information: Regarding HIV / AIDS; Provided by facilities licensed or operated by the [facility] Office of Mental Health; or Provided by the [facility] Office for People With Developmental Disabilities. If such information is present, then the following [facility] mandated warning applies: This information has been disclosed to you from confidential records which are protected by state law. State law prohibits you from making any further disclosure of this information without the specific written consent of the person to whom it pertains, or as otherwise permitted by law. Any unauthorized further disclosure in violation of state law may result in a fine or alf sentence or both. A general authorization for the release of medical or other information is NOT sufficient authorization for further disc losure. Allergies and Adverse Reactions Type Description Substance Reaction Status Data Source(s ) Drug allergy TOLMETIN TOLMETIN [facility] Drug allergy TOLECTIN TOLECTIN HIVES [facility] Family History Family Member Name Family Member Gender Family Member Status Date o f Status Description Data Source(s) Unknown Male Problem [facility] ([facility]) Encounters Encounter Providers Location Date Indications Data Source(s ) Outpatient Attender: JON ELIZONDO MD Medical [facility] 03/14 10:15:00 AM EST [facility] ([facility]) Outpatient Attender: Anton Odonnell MD Main Office 03/10/2021 08:30:00 AM EST [facility] ([facility]) Outpatient Attender: JON ELIZONDO MD [facility] 02/10 02:45:00 PM EDT [facility] ([facility]) Outpatient Attender: FRANCIA JAUREGUI MD Family Practice 02/10/2021 0 9:00:00 AM EDT [facility] ([facility]) Outpatient Attender: FRANCIA JAUREGUI MDConsultant: JON Cottrell MD 02/10/2021 08:51:00 AM EDT - 02/10/2021 08:51:00 AM EDT [facility] Outpatient Attender: JON ELIZONDO MDConsultant: JON Cottrell MD 02/05/2021 08:30:00 AM EDT - 02/05/2021 09:30:00 AM EDT [facility] Inpatient Attender: JON Cedillo ilir: Wilfrid Champagne MDConsultant: JON ELIZONDO MD 01/22/2021 09:00:00 AM EDT - 01/23/2021 10:45:00 AM EDT [facility] Patient discharged. Outpatient Attender: JON ELIZONDO MD 2020 09:59:00 PM EDT - 01/22/2021 09:00:00 AM EDT [facility] Inpatient Attender: ARTURO CHING MDAdmitter: ARTURO GUTIERRES MD [id number] 01/08/2021 02:20:00 PM EDT - 01/09/2021 02:39:00 PM EDT [facility] Patient discharged. Inpatient Attender: JON Cedillo ilir: Wilfrid Champagne MDConsultant: JON ELIZONDO MD 01/08/2021 09:00:00 AM EDT - 01/08/2021 12:18:00 PM EDT [facility] Patient discharged. Outpatient Attender: JON ELIZONDO MD 2020 01:38:00 PM EDT - 01/09/2021 11:02:00 AM EDT [facility] Outpatient Attender: ARTURO CHING MDAdmitter: ARTURO GUTIERRES MD [id number] 01/03/2021 11:38:12 AM EDT [facility] Outpatient Attender: JON ELIZONDO MD Medical [facility] 12/24 11:30:00 AM EDT [facility] ([facility]) Outpatient Attender: JON ELIZONDO MD [facility] 12/19 10:15:00 AM EDT [facility] ([facility]) Outpatient Attender: JON ELIZONDO MDConsultant: JON Cottrell MD 12/17/2020 10:58:00 AM EDT - 12/17/2020 11:58:00 AM EDT [facility] Outpatient Attender: JON ELIZONDO MD [facility] 12/17 10:15:00 AM EDT [facility] ([facility]) Outpatient Attender: JON ELIZONDO MDConsultant: JON Cottrell MD 12/12/2020 10:21:00 AM EDT - 12/12/2020 11:21:00 AM EDT [facility] Outpatient Attender: JON ELIZONDO MD Medical Building 12/12 10:00:00 AM EDT [facility] ([facility]) Outpatient Attender: JON ELIZONDO MD Medical [facility] 11/26 10:30:00 AM EDT [facility] ([facility]) Outpatient Attender: JON ELIZONDO MDConsultant: JON Cottrell MD 11/22/2020 10:46:00 AM EDT - 11/22/2020 11:46:00 AM EDT [facility] Outpatient Attender: JON ELIZONDO MD [facility] 11/22 10:00:00 AM EDT [facility] ([facility]) Outpatient Attender: Liliam HERNANDEZ Main Office 11/05/2020 10:30:00 A M EDT [facility] ([facility]) Outpatient Attender: JON ELIZONDO MD [facility] 10/22 11:00:00 AM EDT [facility] ([facility]) Outpatient Attender: FRANCIA JAUREGUI MDConsultant: JON Cottrell MD 07/24/2020 07:45:00 AM EDT - 07/24/2020 07:45:00 AM EDT [facility] Outpatient Attender: JON ELIZONDO MD [facility] 07/18 11:30:00 AM EDT [facility] ([facility]) Outpatient Attender: FRANCIA JAUREGUI MDConsultant: JON Cottrell MD 04/22/2020 08:14:00 AM EST - 04/22/2020 08:14:00 AM [facility] Emergency Referrer: [facility] [place] 07/2020 09:18:00 AM EST - 04/16/2020 04:46:00 AM [facility] stroke Emergency Attender: ANGIE QUIÑONEZConsultant: JON Cottrell MD 04/15/2020 08:03:00 AM EST - 04/15/2020 09:43:00 AM EST [facility] Patient discharged. Inpatient Attender: MARIA VICTORIA SANTIAGO MD Attender: SKINNY GREY MDAttender: NIGEL SCHAFER MDAdmitter: NIGEL SCHAFER MDReferrer: SKINNY GREY MD [id number] 04/15/2020 12:00:00 AM EST - 04/17/2020 05:09:00 PM ES T Cerebral infarction due to unspecified occlusion or stenosis of left middle cerebral artery [facility] Cerebral infarction due to unspecified o cclusion or stenosis of left middle cerebral artery Patient discharged. 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 COVID-19 VACC, MRNA(PFIZER)/PF 02/28/2021 12:00:00 AM EST completed [facility] COVID-19 VACCINE Pfizer 06/20/2020 12:00:00 AM EST completed [facility] Vaccine Series Complete: NOThis Data was Submitted to [facility] Via [employer]. Medications Medication Brand Name Start Date Product Form Dose Route Admi nistrative Instructions Pharmacy Instructions Status Indications Reaction Description Data Source(s) Levothyroxine Sodium 0.075 MG Oral Capsule Levothyroxine Sod ium 02/10/2021 12:00:00 AM EDT ORAL active M [facility] ([facility]) 24 HR Nitroglycerin 0.4 MG/HR Transdermal Patch [Nitro-Dur] Nitro-Dur 01/23/2021 12:00:00 AM EDT active [facility] ([facility]) Verquvo Verquvo 01/23/2021 12:00:00 AM EDT ORAL active [facility] ([facility]) Bumetanide 1 MG Oral Tablet Bumetanide 01/23/2021 12:00:00 AM EDT ORAL active [facility] ([facility]) Magnesium Oxide (MAG-OX) 400 MG tablet [id number] 12:00:00 AM EDT 400 mg Oral active Take 1 tablet (4 00 mg total) by mouth daily [facility] sodium chloride 0.9% (NS) infusion [id number] 01/09/2021 11:00:00 AM EDT 75 mL/h Intravenous completed at 75 mL /hr, 75 mL/hr, Intravenous, Continuous, Starting on Christin 01/09/21 at 1100, For 2 hours, Post-op [facility] Medication administered onsite iopamidol (ISOVUE-370) 76 % [id number] 01/09/2021 09:15:24 AM EDT active As needed, Starting on Christin 01/09/21 at 0915, Intra-Proc edure [facility] Medication administered onsite lidocaine 1 % injection [id number] 01/09/2021 08:46:19 AM EDT active As needed, Starting on Christin at 0846, Intra-Procedure [facility] Medication administered onsite fentaNYL Citrate (PF) (SUBLIMAZE) injection [id number] 01/09/2021 08:40:57 AM EDT active As neede d, Starting on Christin 01/09/21 at 0840, Intra-Procedure [facility] Medication administered onsite 2 ML Midazolam 1 MG/ML Injection midazolam (VERSED) in jection midazolam (VERSED) injection 01/09/2021 08:40:48 AM EDT active As needed, Starting on Christin 01/09/21 at 0840, Intra-Procedure [facility] Medication administered onsite Levothyroxine Sodium 0.075 MG Oral Table t levothyroxine (SYNTHROID, LEVOTHROID) 75 MCG tablet levothyroxine (SYNTHROID, LEVOTHROID) 75 MCG tablet 12:00:00 AM EDT 75 ug Oral active Take 1 tablet (75 mcg total) by mouth daily [facility] carvedilol 6.25 MG Oral Tablet carvedilol (COREG) 6.25 MG tablet carvedilol (COREG) 6.25 MG tablet 01/09/2021 12:00:00 AM EDT 6.25 mg Oral aborted Take 1 tablet (6.25 mg total) by mouth 2 (two) times a day [facility] carvedilol 6.25 MG Oral Tablet carvedilol (COREG) tabl et 6.25 mg carvedilol (COREG) tablet 6.25 mg 01/08/2021 09:00:00 PM EDT 6.25 mg Oral active 6.25 mg, Oral, 2 times daily, First dose (after last modification) on Wed01/08/21 at 2100 [facility] Medication administered onsite heparin (porcine) injection 5,000 Units [id number] 01/09/20 09:00:00 PM EDT 5000 U Subcutaneous active 5,000 Units , Subcutaneous, Every 12 hours (scheduled), First dose on Wed01/08/21 at 2100
If platelet count is less than 100 or hematocrit is less than 30, or if there is a 5 point decrease in hematocrit, do not give the dose and call physician/designee.
[facility] Medication administered onsite atorvastatin 80 MG Oral Tablet atorvastatin (LIPITOR) tablet 80 mg atorvastatin (LIPITOR) tablet 80 mg 01/08/2021 09:00:00 PM EDT 80 mg Oral active 80 mg, Oral, Nightly, First dose on Wed01/08/21 at 2100 [facility] Medication administered onsite normal saline flush 0.9 % injection 3 mL [id number] 01/08/2021 09:00:00 PM EDT 3 mL Intravenous active 3 mL , Intravenous, PROTOCOL, First dose on Wed01/08/21 at 2100, Pre-op
flush per protocol, D/C Main IV fluid if appropriate
[facility] Medication administered onsite Albuterol 0.833 MG/ML / Ipratropium Brom emma 0.167 MG/ML Inhalant Solution ipratropium-albuterol (DUO-NEB) 0.5-2.5 mg/mL nebulizer solution 3 mL ipratropium-albuterol (DUO-NEB) 0.5-2.5 mg/mL nebulizer solution 3 mL 01/08/2021 08:00:00 PM EDT 3 mL Inhalation active 3 mL, Inhalation, 3 times daily, First dose on Wed01/08/21 at 2000 [facility] Medication administered onsite sodium chloride 0.9% (NS) infusion [id number] 01/08/2021 06:00:00 PM EDT 100 mL/h Intravenous active at 100 m L/hr, 100 mL/hr, Intravenous, Continuous, Starting on Wed01/08/21 at 1800, Pre-op
Start two hours prior to scheduled start time
[facility] Medication administered onsite normal saline flush 0.9 % injection 3 mL [id number] 01/08/2021 06:00:00 PM EDT 3 mL Intravenous active 3 mL , Intravenous, Every 8 hours (scheduled), First dose on Wed01/08/21 at 1800, Pre-op
Rapid push positive pressure flushing shall be performed with a 10 cc normal saline syringe to check the PATENCY of a PIV site prior to any infusion therapy initiation unless resistance is met.
[facility] Medication administered onsite furosemide (LASIX) injection 80 mg [id number] 01/08/2021 05:00:00 PM EDT 80 mg Intravenous active 80 mg, I ntravenous, LOOPBID, First dose on Wed01/08/21 at 1700 [facility] Medication administered onsite ferrous sulfate 325 MG Oral Tablet ferrous sulfate tab let 325 mg ferrous sulfate tablet 325 mg 01/08/2021 05:00:00 PM EDT 325 mg Oral act natasha 325 mg, Oral, 2 times daily with meals, First dose on Wed01/08/21 at 1700
Separate from antacids as far as possible. Take with food, do not crush
[facility] Medication administered onsite 10 ML Atropine Sulfate 0.1 MG/ML Prefill ed Syringe atropine sulfate injection 0.5 mg atropine sulfate injection 0.5 mg 01/08/2021 04:50:42 PM EDT 0.5 mg active 0.5 mg, Intrave nous Push, Every 5 min PRN, other, As needed, for heart rate less than 60 BPM and the patient is hemodynamically unstable and/or SBP is less than 90mmHg, Starting on Wed01/08/21 at 1650, For 1 day, Pre-op
Not to exceed a total of 3 mg or 0.04 mg/kg. Max of 6 doses
[facility] Medication administered onsite clopidogrel 75 MG Oral Tablet clopidogrel (PLAVIX) tab let 75 mg clopidogrel (PLAVIX) tablet 75 mg 01/08/2021 04:00:00 PM EDT 75 mg Oral aborted 75 mg, Oral, Daily, First dose on Wed01/08/21 at 1600 [facility] Medication administered onsite pantoprazole 40 MG Delayed Release Oral Tablet pantoprazole (PROTONIX) EC tablet 40 mg pantoprazole (PROTONIX) EC tablet 40 mg 01/08/2021 04:00:00 PM E DT 40 mg Oral active Gastroesophageal Reflux Diseas e 40 mg, Oral, Daily, Indications: Gastroesophageal Reflux Disease, First dose on Wed01/08/21 at 1600 [facility] Gastroesophageal Reflux Disease Medication administered onsite Aspirin 81 MG Chewable Tablet aspirin chewable tablet 81 mg aspirin chewable tablet 81 mg 01/08/2021 04:00:00 PM EDT 81 mg Oral activ e 81 mg, Oral, Daily, First dose on Wed01/08/21 at 1600 [facility] Medication administered onsite Magnesium Oxide (MAG-OX) tablet 400 mg [id number] 04:00:00 PM EDT 400 mg Oral active 400 mg, Oral, Da benoit, First dose on Wed01/08/21 at 1600 [facility] Medication administered onsite Allopurinol 300 MG Oral Tablet allopurinol (ZYLOPRIM) tablet 300 mg allopurinol (ZYLOPRIM) tablet 300 mg 01/08/2021 04:00:00 PM EDT 300 mg Oral active 300 mg, Oral, Daily, First dose on Wed01/08/21 at 1600 [facility] Medication administered onsite Levothyroxine Sodium 0.075 MG Oral Table t levothyroxine (SYNTHROID, LEVOTHROID) tablet 75 mcg levothyroxine (SYNTHROID, LEVOTHROID) tablet 75 mcg 03:00:00 PM EDT 75 ug Oral active 75 mcg, Oral, Daily, First dose on Wed01/08/21 at 1500
hold for 1 hour before and 1 hour after tube feeds if patient is on tube feed
[facility] Medication administered onsite Albuterol 0.83 MG/ML Inhalant Solution a lbuterol (PROVENTIL) nebulizer solution 2.5 mg albuterol (PROVENTIL) nebulizer solution 2.5 mg 2020 02:54:26 PM EDT 2.5 mg active 2.5 mg, Nebulization, Every 2 hour PRN, wheezing, shortness of breath, Starting on Wed01/08/21 at 1454 [facility] Medication administered onsite Nitroglycerin 0.4 MG Sublingual Tablet n itroglycerin (NITROSTAT) SL tablet 0.4 mg nitroglycerin (NITROSTAT) SL tablet 0.4 mg 01/08/2021 02:52:37 P M EDT 0.4 mg Sublingual active 0.4 mg, S ublingual, Every 5 min PRN, chest pain, Starting on Wed01/08/21 at 1452
May administer up to 3 doses per episode.
[facility] Medication administered onsite Technetium TC 99M Sestamibi 12/23/2020 12:00:00 AM EDT completed [facility] (Jon Elizondo MD) Medication administered onsite Lexiscan 12/23/2020 12:00:00 AM EDT completed [facility] (Jon Elizondo MD) Medication administered onsite Nebulizer 12/12/2020 12:00:00 AM EDT active [facility] (Jon Elizondo MD) 24 HR Nicotine 0.875 MG/HR Transdermal Patch [Nicoderm C-Q] Nicoderm CQ 12/12/2020 12:00:00 AM EDT active [facility] (Jon Elizondo MD) Albuterol 0.833 MG/ML / Ipratropium [place] 0.167 MG/M L Inhalant Solution Ipratropium [place]/Albuterol Sulfate 12/12/2020 12:00:00 AM EDT active [facility] (Jon Elizondo MD) 12 HR Bupropion Hydrochloride 150 MG Extended Release Oral Tablet [Wellbutrin] Wellbutrin SR 12/12/2020 12:00:00 AM EDT ORAL active [facility] (Jon Elizondo MD) 500 mg 11/26/2020 12:00:00 AM EDT capsule 30 TAKE ONE CAPSULE BY MOUTH THREE TIMES A DAY TAKE ONE CAPSULE BY MOUTH THREE TIMES A DAY SOLD: 11/26/2020 [facility] Amoxicillin 500 MG Oral Capsule Amoxicillin 11/26/2020 12:00:00 AM EDT ORAL completed [facility] (Jon Elizondo MD) ferrous sulfate 325 MG Delayed Release Oral Tablet Ferrous S ulfate 07/18/2020 12:00:00 AM EDT ORAL active M [facility]ENT (Jon Elizondo MD) Ticagrelor 90 MG Oral Tablet [Brilinta] Brilinta 07/18/2020 12:00:0 0 AM EDT ORAL active [facility] (Lucita Elizondo MD) Levothyroxine Sodium 0.075 MG Oral Tablet Levothyroxine Sodi um 07/18/2020 12:00:00 AM EDT active M [facility] (Jon Elizondo MD) Metoprolol Tartrate 25 MG Oral Tablet Metoprolol Tartrate 12:00:00 AM EST ORAL active [facility] ([facility]) sacubitril 49 MG / valsartan 51 MG Oral Tablet [Entresto] En tresto 04/22/2020 12:00:00 AM EST ORAL active M [facility]ENT ([facility]) Ticagrelor 90 MG Oral Tablet ticagrelor (BRILINTA) tab let 90 mg ticagrelor (BRILINTA) tablet 90 mg 04/18/2020 09:00:00 AM EST 90 mg Oral active 90 mg, Oral, 2 Times Daily, First dose on Wed04/18/20 at 0900, For 30 days [facility] Medication administered onsite Ticagrelor 90 MG Oral Tablet Ticagrelor 90 MG Oral Tab let (BRILINTA) Ticagrelor 90 MG Oral Tablet (BRILINTA) 04/18/2020 12:00:00 AM EST 90 mg Oral active Take 1 tablet by mouth Two Times Daily [facility] Aspirin 81 MG Chewable Tablet Aspirin 81 MG Oral Table t Chewable Aspirin 81 MG Oral Tablet Chewable 04/18/2020 12:00:00 AM EST 324 mg Oral aborted Chew 4 tablets by Mouth daily [facility] Ticagrelor 90 MG Oral Tablet Ticagrelor 90 MG Oral Tab let (BRILINTA) Ticagrelor 90 MG Oral Tablet (BRILINTA) 04/18/2020 12:00:00 AM EST 90 mg Oral aborted Take 1 tablet by mouth Two Times Daily [facility] Aspirin 81 MG Chewable Tablet Aspirin 81 MG Oral Table t Chewable Aspirin 81 MG Oral Tablet Chewable 04/18/2020 12:00:00 AM EST 324 mg Oral aborted Chew 4 tablets by Mouth daily [facility] Aspirin 325 MG Oral Tablet Aspirin 325 MG Oral Tablet 2020 12:00:00 AM EST 325 mg Oral active Take 1 tablet by mouth daily [facility] Aspirin 81 MG Chewable Tablet aspirin chewable tablet 324 mg aspirin chewable tablet 324 mg 04/16/2020 09:00:00 AM EST 324 mg Oral acti ve 324 mg, Oral, Daily Standard, First dose (after last modification) on Wed04/16/20 at 0900, For 30 days
Chew tablet before swallowing.
[facility] Medication administered onsite clopidogrel 75 MG Oral Tablet clopidogrel (PLAVIX) tab let 75 mg clopidogrel (PLAVIX) tablet 75 mg 04/16/2020 09:00:00 AM EST 75 mg Oral aborted 75 mg, Oral, Daily Standard, First dose on Wed04/16/20 at 0900, For 30 days [facility] Medication administered onsite atorvastatin 40 MG Oral Tablet atorvastatin (LIPITOR) tablet 80 mg atorvastatin (LIPITOR) tablet 80 mg 04/16/2020 09:00:00 AM EST 80 mg Oral active 80 mg, Oral, Daily Standard, First dose on Wed04/16/20 at 0900, For 30 days [facility] Medication administered onsite Furosemide 40 MG Oral Tablet furosemide (LASIX) tablet 40 mg furosemide (LASIX) tablet 40 mg 04/16/2020 09:00:00 AM EST 40 mg Oral activ e 40 mg, Oral, 2 Times Daily, First dose on Wed04/16/20 at 0900, For 30 days [facility] Medication administered onsite fluticasone (FLONASE) 50 MCG/ACT nasal spray 2 spray [id number] 04/16/2020 09:00:00 AM EST 2 {spray} Nasal active 2 spray, Nasal, Daily Standard, First dose on Wed04/16/20 at 0900, For 30 days
Shake well before use
[facility] Medication administered onsite 0.4 ML Enoxaparin sodium 100 MG/ML Prefi lled Syringe enoxaparin sodium (LOVENOX) injection 40 mg enoxaparin sodium (LOVENOX) injection 40 mg 04/16/2020 09:00:00 AM EST 40 mg Subcutaneous active 40 mg, Subcutaneous, Daily Standard, First dose on Wed04/16/20 at 0900, For 30 days [facility] Medication administered onsite Metoprolol Tartrate 25 MG Oral Tablet me toprolol tartrate (LOPRESSOR) tablet 25 mg metoprolol tartrate (LOPRESSOR) tablet 25 mg 04/16/2020 09:00:00 AM EST 25 mg Oral active 25 mg, Ora l, Daily Standard, First dose on Wed04/16/20 at 0900, For 30 days [facility] Medication administered onsite Levothyroxine Sodium 0.05 MG Oral Tablet levothyroxine (SYNTHROID) tablet 50 mcg levothyroxine (SYNTHROID) tablet 50 mcg 04/16/2020 06:00:00 AM EST 50 ug Oral active 50 mcg, Oral, Daily at 0600, First dose on Wed04/16/20 at 0600, For 30 days [facility] Medication administered onsite Allopurinol 300 MG Oral Tablet Allopurinol 03/18/2020 12:00:00 AM EST ORAL active [facility] (Jon Elizondo MD) Acetaminophen 325 MG Oral Tablet acetaminophen (TYLENO L) 325 MG tablet acetaminophen (TYLENOL) 325 MG tablet 09/14/2019 12:00:00 AM EDT 65 0 mg Oral aborted Take 2 tablets (650 mg total) by mouth every 4 (four) hours as needed [facility] Levothyroxine Sodium 0.05 MG Oral Tablet Levothyroxine Sodium 50 MCG Oral Tablet (SYNTHROID, LEVOTHROID) Levothyroxine Sodium 50 MCG Oral Tablet (SYNTHROID, LEVOTHROID) 07/27/2019 12:00:00 AM EDT 50 ug Oral active Take 1 tablet by mouth Daily [facility] clopidogrel 75 MG Oral Tablet clopidogrel (PLAVIX) 75 MG tablet clopidogrel (PLAVIX) 75 MG tablet 75 mg Oral aborted Ta ke 75 mg by mouth daily [facility] clopidogrel 75 MG Oral Tablet Clopidogrel Bisulfate 75 MG Oral Tablet (PLAVIX) Clopidogrel Bisulfate 75 MG Oral Tablet (PLAVIX) 75 mg Oral aborted Take 75 mg by mouth daily [facility] Levothyroxine Sodium 0.05 MG Oral Tablet levothyroxine (SYNTHROID, LEVOTHROID) 50 MCG tablet levothyroxine (SYNTHROID, LEVOTHROID) 50 MCG tablet 50 ug Oral aborted Take 50 mcg by mouth daily [facility] Aspirin 81 MG Delayed Release Oral Table t Aspirin 81 MG Oral Tablet Delayed Release Aspirin 81 MG Oral Tablet Delayed Release 81 mg Oral aborted Take 81 mg by mouth daily [facility] Magnesium Oxide 400 MG Oral Tablet Magne sium Oxide (MAGNESIUM OXIDE) 400 MG tablet Magnesium Oxide (MAGNESIUM OXIDE) 400 MG tablet 400 mg Oral aborted Take 400 mg by mouth 2 (two) elyse es a day [facility] Loratadine 10 MG Oral Tablet loratadine (CLARITIN) 10 MG tablet loratadine (CLARITIN) 10 MG tablet 10 mg Oral aborted Take 10 mg by mouth daily [facility] OLIVE LEAF EXTRACT PO drug or medication 1 {capsule} Oral aborted Take 1 capsule by mouth daily [facility] [place] 3-6-9 Fatty Acids (TRIPLE OMEGA COMPLEX PO) drug or medicatio n 1 {capsule} Oral aborted Take 1 capsule by mout h 2 (two) times a day [facility] Insurance Providers Payer name Policy type / Coverage type Policy ID Covered alliance party ID Covered alliance party's relationship to ortez Policy Ortez Plan Information 6 [id number] [employer] INS 2 [id number] COMMERCIAL GENERIC [id number] Karla [id number] COMMERCIAL GENERIC [id number] Karla [id number] Karla [id number] U [id number] Self [id number] MEDICARE [id number] Karla [id number] A MEDICARE [id number] Karla [id number] J21 MEDICARE A [id number] Self [id number] [id number] MEDICARE [id number] SP [id number] A MEDICARE [id number] SP [id number] MEDICARE [id number] [id number] MEDICARE A [id number] Self [id number] A [place]AST HU[place] [id number] SP [id number] 'S ADMINISTRATION [id number] SP [id number] Karla [id number] FOR LIFE [id number] SP [id number] EAST HU[place] [id number] SP [id number] OTHER B [id number] Self [id number] FOR LIFE U [id number] Self [id number] U [id number] Self [id number] FOR LIFE U [id number] Self [id number] FOR LIFE U [id number] Self [id number] INSURANCE COVID-19 COVID Karla C OVID INSURANCE COVID-19 [id number] xxxxx [id number] INSURANCE COVID-19 COVID Karla C OVID [place] CO UNAVAILABLE 18 UNAVAILABLE U [id number] Self [id number] For Life Commercial [id number] PI PI MEDICARE PI PI MEDICARE PART A -O/P [id number] 18 [id number] MEDICARE PART A -O/P [id number] 18 [id number] Karla [id number] PI PI FOR LIFE O [id number] S [id number] MEDICARE C [id number] S [id number] A MEDICARE PART A -O [id number] 18 [id number] MEDICARE PART A -I/P [id number] 18 [id number] EAST HU[place] - O/P [id number] 18 [id number] FOR LIFE -O [id number] 18 [id number] HUMANA EAST REG O [id number] S [id number] MEDICARE [id number] SP [id number] A EAST HUMANA [id number] SP [id number] N REGIONAL CLAIMS BELL-O/P [id number] 18 [id number] MEDICARE PART A -I/P [id number] 18 [id number] MEDICARE PART B -PHYSICIAN [id number] 18 [id number] MEDICARE PART A -O [id number] [id number] [facility] P [id number] S [id number] SELF PAY 2 UNAVAILABLE 1 UNAVAILA BLE MEDICARE PART A -O/P [id number] 18 [id number] MEDICARE PART A [place] [id number] 18 [id number] FOR LIFE -O/P [id number] 18 [id number] FOR LIFE [place] [id number] 18 [id number] [employer] LIFE INS-O/P [id number] xxxxxxxxx [id number] FOR LIFE -CLINIC [id number] 18 [id number] FOR LIFE -I/P [id number] 18 [id number] Medicare Part A [place] Medicare Primary [id number] Self [id number] For Life Commercial [id number] Self [id number] [facility] [id number] [facility] [id number] Medicare Part A [place] Primary [id number] Self [id number] Problems, Conditions, and Diagnoses Code Display Name Description Problem Type Effective Dates Data Source(s) I2510 Atherosclerotic heart diseas e of [place] coronary artery without angina pectoris Atherosclerotic heart disease of [place] coronary artery without angina pectoris Diagnosis 02/10[facility]2021 08[facility] Hypothyroidism, unspecified Hypothyroidism, unspecifie d Diagnosis 02/10/2021 08:51:00 AM [facility] I10 Essential (primary) hypertension Essential (primary) h ypertension Diagnosis 02/10/2021 08:51:00 AM [facility] E8342 Hypomagnesemia Hypomagnesemia Diagnosis 02/05/2021 08:30: 00 AM [facility] D649 Anemia, unspecified Anemia, unspecified Diagnosis 1 08:30:00 AM [facility] E782 Mixed hyperlipidemia Mixed hyperlipidemia Diagnosis 02/05/2021 08:30:00 AM [facility] E119 Type 2 diabetes mellitus without complic ations Type 2 diabetes mellitus without complications Diagnosis 02/05/2021 08:30:00 AM [facility] K8020 Calculus of gallbladder without cholecys titis without obstruction Calculus of gallbladder without cholecystitis without obstruction Diagnosis 01/22/2021 09:00:00 AM [facility] K5730 Diverticulosis of large inte real without perforation or abscess without bleeding Diverticulosis of large intestine withou t perforation or abscess without bleeding Diagnosis 01/22/2021 09:00:00 AM [facility] N179 Acute kidney failure, unspecified Acute kidney f ailure, unspecified Diagnosis 01/22/2021 09:00:00 AM [facility] R188 Other ascites Other ascites Diagnosis 01/22/2021 09:00:00 AM [facility] E871 Hypo-osmolality and hyponatremia Hypo-osmolality and hyponatremia Diagnosis 01/20/2021 09:59:00 PM EDT [facility] D53049 Nicotine dependence, cigarettes, uncompl icated Nicotine dependence, cigarettes, uncomplicated Diagnosis 01/20/2021 09:59:00 PM EDT [facility] O93452 Presence of other cardiac implants and g rafts Presence of other cardiac implants and grafts Diagnosis 01/20/2021 09:59:00 PM EDT [facility] Z950 Presence of cardiac pacemaker Presence of cardiac pace maker Diagnosis 01/20/2021 09:59:00 PM EDT [facility] Z951 Presence of aortocoronary bypass graft P resence of aortocoronary bypass graft Diagnosis 01/20/2021 09:59:00 PM EDT [facility] I110 Hypertensive heart disease with heart fa ilure Hypertensive heart disease with heart failure Diagnosis 01/20/2021 09:59:00 PM EDT [facility] J449 Chronic obstructive pulmonary disease, u nspecified Chronic obstructive pulmonary disease, unspecified Diagnosis 01/20/2021 09:59:00 PM EDT [facility] M109 Gout, unspecified Gout, unspecified Diagnosis 01/20/2021 09:59:00 PM EDT [facility] G4700 Insomnia, unspecified Insomnia, unspecified Diagnosis 01/20/2021 09:59:00 PM T [facility] I739 Peripheral vascular disease, unspecified Peripheral vascular disease, unspecified Diagnosis 01/20/2021 09:59:00 PM EDT [facility] Z8673 Personal history of transien t ischemic attack (TIA), and cerebral infarction without residual deficits Personal history of transient ischemic attack (TIA), and cerebral infarction without residual deficits Diagnosis 01/20/2021 09:59:00 PM EDT [facility] Z1152 ENCOUNTER FOR SCREENING FOR COVID-19 ENCOUNTER F OR SCREENING FOR COVID-19 Diagnosis 01/20/2021 09:59:00 PM T [facility] N29451 Atherosclerotic heart diseas e of [place] coronary artery with other forms of angina pectoris Atherosclerotic heart disease of [place] coronary artery with other forms of angina pectoris Diagnosis 01/20/2021 09:59:00 PM EDT [facility] I5021 Acute systolic (congestive) heart failur e Acute systolic (congestive) heart failure Diagnosis 01/20/2021 09:59:00 PM EDT [facility] I20.0 Unstable angina Unstable angina Diagnosis 01/08/2021 02:2 0:00 PM EDT [facility] I50.9 Heart failure, unspecified Heart failure, unspecified Diagnosis 01/08/2021 02:20:00 PM EDT [facility] I4891 Unspecified atrial fibrillation Unspecified atrial fib rillation Diagnosis 01/03/2021 01:38:00 PM EDT [facility] E7800 Pure hypercholesterolemia, unspecified P ure hypercholesterolemia, unspecified Diagnosis 01/03/2021 01:38:00 PM EDT [facility] R06.00 Dyspnea, unspecified Dyspnea, unspecified Diagnosis 01/03/2021 11:41:42 AM EDT [facility] R94.39 Abnormal result of other cardiovascular function study Abnormal result of other cardiovascular Diagnosis 01/03/2021 11:41:42 AM EDT [facility] R748 Abnormal levels of other serum enzymes A bnormal levels of other serum enzymes Diagnosis 12/17/2020 10:58:00 AM EDT [facility] K5790 Diverticulosis of intestine, part unspecified, without perforation or abscess without bleeding Diverticulosis of intestine, part unspec ified, without perforation or abscess without bleeding Diagnosis 12/17/2020 10:58:00 AM T [facility] J90 Pleural effusion, not elsewhere classifi ed Pleural effusion, not elsewhere classified Diagnosis 12/17/2020 10:58:00 AM EDT [facility] I509 Heart failure, unspecified Heart failure, unspecified Diagnosis 11/22/2020 10:46:00 AM EDT [facility] N390 Urinary tract infection, site not specif ied Urinary tract infection, site not specified Diagnosis 11/22/2020 10:46:00 AM [facility] E785 Hyperlipidemia, unspecified Hyperlipidemia, unspecifie d Diagnosis 11/22/2020 10:46:00 AM [facility] stroke stroke Diagnosis 04/16/2020 04:46:42 AM [facility] I63.512 Cerebral infarction due to u nspecified occlusion or stenosis of left middle cerebral artery Cerebral infarction due to unspecified o cclusion or stenosis of left middle cerebral artery Diagnosis 04/15/2020 12:30:55 PM [facility] Z7902 skilled nursing (current) use of antithromboti cs/antiplatelets skilled nursing (current) use of antithrombotics/antiplatelets Diagnosis 021 08:03:00 AM [facility] D47373 Invalid ICD10 Description Invalid ICD10 Description Di agnosis 04/15/2020 08:03:00 AM [facility] Z7982 skilled nursing (current) use of aspirin ferry terminal agent (cu rrent) use of aspirin Diagnosis 04/15/2020 08:03:00 AM [facility] T92473 Cerebral infarction due to thrombosis of left middle cerebral artery Cerebral infarction due to thrombosis of left middle cerebral artery Diagnosis 04/15/2020 08:03:00 AM [facility] X27692 Facial weakness Facial weakness Diagnosis 04/15/2020 08:0 3:00 AM [facility] H19520 Nicotine dependence, unspecified, uncomp licated Nicotine dependence, unspecified, uncomplicated Diagnosis 04/15/2020 08:03:00 AM [facility] I20.0 Unstable angina Unstable angina [id number] 01/08/2021 12:0 0:00 AM EDT [facility] [id number] Essential hypertension Essential hypertension Problem 12/05/2020 12:00:00 AM EDT [facility] ([facility] ) Surgeries/Procedures Procedure Description Date Indications Data Source(s) OFFICE OUTPATIENT VISIT 25 MINUTES 03/14/2021 12:00:00 AM EST [facility] (Jon Elizondo MD) ECG ROUTINE ECG W/LEAST 12 LDS W/I&R 03/14/2021 12:00: 00 AM EST [facility] (Jon Elizondo MD) DUPLEX SCAN EXTRACRANIAL ART COMPL BI STUDY 03/10/2021 12:00:00 AM EST [facility] ([facility] OFFICE OUTPATIENT VISIT 15 MINUTES 03/10/2021 12:00:00 AM EST [facility] ([facility] OFFICE OUTPATIENT VISIT 25 MINUTES 02/10/2021 12:00:00 AM EDT [facility] (Jon Elizondo MD) OFFICE OUTPATIENT VISIT 15 MINUTES 02/10/2021 12:00:00 AM EDT [facility] ([facility]) HOSPITAL DISCHARGE DAY MANAGEMENT 30 MIN/< 01/23/2021 12:00:00 AM EDT ASHLEY (Jon Elizondo MD) [facility] HOSPITAL CARE/DAY 15 MINUTES 01/22/2021 12:00:00 AM EDT [facility] (Jon Elizondo MD) Computerized Tomography (CT Scan) of Chest, Abdomen an d Pelvis Computerized Tomography (CT Scan) of Chest, Abdomen and Pelvis 01/22/2021 12:00:00 AM EDT [facility] Monitoring of Cardiac Electrical Activity, External Ap proach Monitoring of Cardiac Electrical Activity, External Approach 01/22/2021 12:00:00 AM EDT [facility] HOSPITAL CARE/DAY 25 MINUTES 01/21/2021 12:00:00 AM EDT ASHLEY (Jon Elizondo MD) INITIAL HOSPITAL CARE/DAY 50 MINUTES 01/20/2021 12:00: 00 AM EDT [facility] (Jon Elizondo MD) CARDIAC CATHETERIZATION <td>CARDIAC CATHETERIZATION</td><td>Routine</td><td>01/09/2021 9:23 AM EDT</td><td> Unstable angina</td><td> </td> 01/09/2021 09:23:45 AM EDT Unstable angina [facility] Unstable angina BLOOD COUNT COMPLETE AUTOMATED <td>CBC</td><td>Routine </td><td>01/09/2021 4:21 AM EDT</td><td></td><td> </td> 01/09/2021 04:21:00 AM EDT [facility] LIPID PANEL <td>LIPID PANEL</td><td>Rout ine</td><td>01/09/2021 4:21 AM EDT</td><td></td><td> </td> 01/09/2021 04:21:00 AM EDT [facility] BASIC METABOLIC PANEL CALCIUM TOTAL <td>BASIC METABOLI C PANEL</td><td>Routine</td><td>01/09/2021 4:21 AM EDT</td><td></td><td> </td> 01/09/2021 04:21:00 AM EDT [facility] 2019 NCOV AMPLIFIED <td>2019 NCOV AMPLIFIED</td> <td>STAT</td><td>01/08/2021 4:48 PM EDT</td><td></td><td> </td> 01/08/2021 04:48:00 PM EDT [facility] BLOOD COUNT COMPLETE AUTOMATED <td>CBC</td><td>Routine </td><td>01/08/2021 3:20 PM EDT</td><td></td><td> </td> 01/08/2021 03:20:00 PM EDT [facility] MAGNESIUM <td>MAGNESIUM</td><td>Routin e</td><td>01/08/2021 3:20 PM EDT</td><td></td><td> </td> 01/08/2021 03:20:00 PM EDT [facility] BASIC METABOLIC PANEL CALCIUM TOTAL <td>BASIC METABOLI C PANEL</td><td>Routine</td><td>01/08/2021 3:20 PM EDT</td><td></td><td> </td> 01/08/2021 03:20:00 PM EDT [facility] HOSPITAL DISCHARGE DAY MANAGEMENT 30 MIN/< 01/08/2021 12:00:00 AM EDT [facility] (Jon Elizondo MD) Introduction of Vasopressor into Peripheral Vein, Perc utaneous Approach Introduction of Vasopressor into Peripheral Vein, Percutaneous Approach 01/08/2021 12:00:00 AM EDT [facility] Introduction of Electrolytic and Water B alance Substance into Peripheral Vein, Percutaneous Approach Introduction of Electrolytic and Water B alance Substance into Peripheral Vein, Percutaneous Approach 01/08/2021 12:00:00 AM EDT [facility] HOSPITAL CARE/DAY 15 MINUTES 01/07/2021 12:00:00 AM EDT [facility] (Jon Elizondo MD) [facility] HOSPITAL CARE/DAY 15 MINUTES 01/06/2021 12:00:00 AM EDT [facility] (Jon Elizondo MD) [facility] HOSPITAL CARE/DAY 25 MINUTES 01/05/2021 12:00:00 AM EDT [facility] (Jon Elizondo MD) [facility] HOSPITAL CARE/DAY 25 MINUTES 01/04/2021 12:00:00 AM EDT [facility] (Jon Elizondo MD) [facility] HOSPITAL CARE/DAY 50 MINUTES 01/03/2021 12:00: 00 AM EDT [facility] (Jon Elizondo MD) OFFICE OUTPATIENT VISIT 15 MINUTES 12/24/2020 12:00:00 AM EDT [facility] (Jon Elizondo MD) MYOCARDIAL SPECT MULTIPLE STUDIES 12/23/2020 12:00:00 AM EDT [facility] (Jon Elizondo MD) ECG ROUTINE ECG W/LEAST 12 LDS W/I&R 12/19/2020 12:00: 00 AM EDT [facility] (Jon Elizondo MD) OFFICE OUTPATIENT VISIT 25 MINUTES 12/19/2020 12:00:00 AM EDT [facility] (Jon Elizondo MD) OFFICE OUTPATIENT VISIT 25 MINUTES 12/17/2020 12:00:00 AM EDT [facility] (Jon Elizondo MD) OFFICE OUTPATIENT VISIT 25 MINUTES 12/12/2020 12:00:00 AM EDT [facility] (Jon Elizondo MD) ECG ROUTINE ECG W/LEAST 12 LDS W/I&R 11/26/2020 12:00: 00 AM EDT [facility] (Jon Elizondo MD) ECHO TTHRC R-T 2D W/WOM-MODE COMPL SPEC&COLR DOP 11/26 12:00:00 AM EDT [facility] (Jon Elizondo MD) OFFICE OUTPATIENT VISIT 25 MINUTES 11/26/2020 12:00:00 AM EDT [facility] (Jon Elizondo MD) OFFICE OUTPATIENT VISIT 25 MINUTES 11/22/2020 12:00:00 AM EDT [facility] (Jon Elizondo MD) DUPLEX SCAN EXTRACRANIAL ART COMPL BI STUDY 11/05/2020 12:00:00 AM EDT [facility] ([facility]) OFFICE OUTPATIENT VISIT 15 MINUTES 11/05/2020 12:00:00 AM EDT [facility] ([facility] OFFICE OUTPATIENT VISIT 25 MINUTES 10/22/2020 12:00:00 AM EDT [facility] (Jon Elizondo MD) Duplex Scan Extracranial Arteries, Follow-Up Or Limited Stud y 08/08/2020 12:00:00 AM EDT [facility] ([facility]) Duplex Scan Extracranial Arteries, Follow-Up Or Limited Stud y 08/08/2020 12:00:00 AM EDT [facility] ([facility]) DUPLEX SCAN EXTRACRANIAL ART COMPL BI STUDY 08/08/2020 12:00:00 AM EDT [facility] ([facility] OFFICE OUTPATIENT VISIT 15 MINUTES 07/18/2020 12:00:00 AM EDT [facility] (Jon Elizondo MD) DUPLEX SCAN EXTRACRANIAL ART COMPL BI STUDY 05/01/2020 12:00:00 AM EST [facility] ([facility]) CARDIAC DEVICE (IMPLANT) CHECK <td>CARDIAC DEVICE (IMP LANT) CHECK</td><td>Routine</td><td>04/17/2020 9:13 AM EST</td><td> Acute ischemic left MCA stroke</td><td></td> 04/17/2020 09:13:50 AM EST Acute ischemic left MCA stroke [facility] Acute ischemic left MCA stroke ECHOCARDIOGRAM LIMITED WITH BUBBLE STUDY <td>ECHOCARDI OGRAM LIMITED WITH BUBBLE STUDY</td><td>Routine</td><td>04/17/2020 9:02 AM EST</td><td></td><td> </td> 04/17/2020 09:02:38 AM [facility] MRI BRAIN BRAIN STEM W/O CONTRAST MATERIAL <td>MR BRAI N WITHOUT CONTRAST [id number]</td><td>STAT</td><td>04/17/2020 8:58 AM EST</td><td></td><td> </td> 04/17/2020 08:58:36 AM [facility] BASIC METABOLIC PANEL CALCIUM TOTAL <td>BASIC METABOLI C PANEL</td><td>Routine</td><td>04/17/2020 4:57 AM EST</td><td></td><td> </td> 04/17/2020 04:57:00 AM [facility] IAAD EIA HIV-1 AG W/HIV-1&HIV-2 ANTBDY SINGLE <td>HIV AG AB COMBO SCREEN</td><td>Routine</td><td>04/16/2020 4:31 AM EST</td><td></td><td> </td> 04/16/2020 04:31:00 AM [facility] BASIC METABOLIC PANEL CALCIUM TOTAL <td>BASIC METABOLI C PANEL</td><td>Routine</td><td>04/16/2020 4:27 AM EST</td><td></td><td> </td> 04/16/2020 04:27:00 AM [facility] EKG ED PHYSICIAN INTERPRETATION <td>EKG ED PHYSICIAN INTERPRETATION</td><td>Routine</td><td>04/15/2020 12:24 PM EST</td><td></td><td> </td> 04/15/2020 12:24:29 PM [facility] RESPIRATORY PATHOGEN PANEL <td>RESPIRATORY PATHOGEN PANEL</td><td>Routine</td><td>04/15/2020 11:56 AM EST</td><td></td><td> </td> 04/15/2020 11:56:00 AM [facility] COVID-19 PCR <td>COVID-19 PCR</td><td>Rou suresh</td><td>04/15/2020 11:56 AM EST</td><td></td><td> </td> 04/15/2020 11:56:00 AM [facility] TROPONIN QUANTITATIVE <td>POCT ISTAT TROPONIN</td> <td>Routine</td><td>04/15/2020 11:53 AM EST</td><td></td><td> </td> 04/15/2020 11:53:00 AM [facility] BASIC METABOLIC PANEL CALCIUM IONIZED <td>POCT ISTAT CHEM8</td><td>Routine</td><td>04/15/2020 11:52 AM EST</td><td></td><td> </td> 04/15/2020 11:52:00 AM [facility] THROMBOPLASTIN TIME PARTIAL PLASMA/WHOLE BLOOD <td>PAR TIAL THROMBOPLASTIN TIME (PTT)</td><td>Routine</td><td>04/15/2020 11:51 AM EST</td><td></td><td> </td> 04/15/2020 11:51:00 AM [facility] PROTHROMBIN TIME <td>PROTIME INR</td><td>Rout ine</td><td>04/15/2020 11:51 AM EST</td><td></td><td> </td> 04/15/2020 11:51:00 AM [facility] BLOOD COUNT COMPLETE AUTO&AUTO DIFRNTL WBC COUNT <td>C BC AND DIFFERENTIAL</td><td>Routine</td><td>04/15/2020 11:51 AM EST</td><td></td><td> </td> 04/15/2020 11:51:00 AM [facility] BLOOD TYPING ABO <td>TYPE AND SCREEN</td><td> STAT</td><td>04/15/2020 11:51 AM EST</td><td></td><td> </td> 04/15/2020 11:51:00 AM [facility] THYROID STIMULATING HORMONE TSH <td>TSH</td><td>Routin e</td><td>04/15/2020 11:51 AM EST</td><td></td><td> </td> 04/15/2020 11:51:00 AM [facility] HEMOGLOBIN GLYCOSYLATED A1C <td>HEMOGLOBIN A1C</td><td>Routine</td><td>04/15/2020 11:51 AM EST</td><td></td><td> </td> 04/15/2020 11:51:00 AM [facility] HEPATIC FUNCTION PANEL <td>HEPATIC FUNCTION PANEL A</td><td>Routine</td><td>04/15/2020 11:51 AM EST</td><td></td><td> </td> 04/15/2020 11:51:00 AM [facility] LIPID PANEL <td>LIPID PANEL</td><td>Rout ine</td><td>04/15/2020 11:51 AM EST</td><td></td><td> </td> 04/15/2020 11:51:00 AM [facility] BASIC METABOLIC PANEL CALCIUM TOTAL <td>BASIC METABOLI C PANEL</td><td>Routine</td><td>04/15/2020 11:51 AM EST</td><td></td><td> </td> 04/15/2020 11:51:00 AM [facility] CEREBRAL PERFUSION ANALYS CT W/BLOOD FLOW&VOLUME <td>C T CEREBRAL PERFUSION WITH CONTRAST 0042T</td><td>STAT</td><td>04/15/2020 11:49 AM EST</td><td></td><td> </td> 04/15/2020 11:49:40 AM [facility] CT ANGIOGRAPHY NECK W/CONTRAST/NONCONTRAST <td>CT LAVON OGRAPHY NECK [id number]</td><td>CODE</td><td>04/15/2020 11:49 AM EST</td><td></td><td> </td> 04/15/2020 11:49:03 AM [facility] CT ANGIOGRAPHY HEAD W/CONTRAST/NONCONTRAST <td>CT LAVON OGRAPHY HEAD [id number]</td><td>CODE</td><td>04/15/2020 11:49 AM EST</td><td></td><td> </td> 04/15/2020 11:49:03 AM [facility] BLOOD GASES ANY COMBINATION PH PCO2 PO2 CO2 HCO3 <td>P OCT ISTAT VBG/LAC</td><td>Routine</td><td>04/15/2020 11:48 AM EST</td><td></td><td> </td> 04/15/2020 11:48:00 AM [facility] EKG 12 LEAD (UNSOLICITED COMPUTER ORDER) <td>EKG 12 LE AD (UNSOLICITED COMPUTER ORDER)</td><td>Routine</td><td>04/15/2020 11:44 AM EST</td><td></td><td></td> 04/15/2020 11:44:34 AM [facility] EKG 12-LEAD - CMAXX REPORT <td>EKG 12-LEAD - CMAXX REPORT</td><td></td><td>04/15/2020 11:44 AM EST</td><td></td><td></td> 04/15/2020 11:44:34 AM [facility] EKG 12-LEAD - CMAXX REPORT <td>EKG 12-LEAD - CMAXX REPORT</td><td></td><td>04/15/2020 11:44 AM EST</td><td></td><td></td> 04/15/2020 11:44:34 AM [facility] EKG 12-LEAD <td>EKG 12-LEAD</td><td>STAT </td><td>04/15/2020 11:44 AM EST</td><td></td><td> </td> 04/15/2020 11:44:34 AM [facility] EKG 12-LEAD - CMAXX REPORT <td>EKG 12-LEAD - CMAXX REPORT</td><td></td><td>04/15/2020 11:44 AM EST</td><td></td><td></td> 04/15/2020 11:44:00 AM [facility] Results ID Date Data Source [id number] 03/14/2021 11:10:00 AM EST [facility] Name Value Range Interpretation Code Description Data Tavo rce(s) Supporting Document(s) SARS coronavirus 2 RNA [Presence] in Res piratory specimen by LUIS A with probe detection NEGATIVE [facility] This lab was ordered by [facility] a nd reported by [facility]. ID Date Data Source [id number] 02/05/2021 08:36:00 AM EDT [facility] (Jon Elizondo MD) Name Value Range Interpretation Code Description Data Tavo rce(s) Supporting Document(s) Laboratory test finding (navigational concept) Laboratory test result [facility] (Jon Elizondo MD) COMPREHENSIVE METABOLIC PANEL Laboratory test finding (navigational concept) 142 meq/L 134-153 [facility] (Jon Elizondo MD) Laboratory test finding (navigational concept) 4.5 meq/L 3.6-5.0 [facility] (Jon Elizondo MD) Laboratory test finding (navigational concept) 25 meq/L 22-30 [facility] (Jon Elizondo MD) Laboratory test finding (navigational concept) 105 meq/L 98-107 [facility] (Jon Elizondo MD) Laboratory test finding (navigational concept) 108 mg/dL 7 0-99 Above high normal [facility] (Jon Elizondo MD) Laboratory test finding (navigational concept) 1.3 mg/dL 0.7-1.5 [facility] (Jon Elizondo MD) Laboratory test finding (navigational concept) 27 mg/dL 7-21 Above high normal [facility] (Jon Elziondo MD) Laboratory test finding (navigational concept) 21 8-27 [facility] (Jon Elizondo MD) Laboratory test finding (navigational concept) 7.2 g/dL 6.3-8.2 [facility] (Jon Elizondo MD) Laboratory test finding (navigational concept) 4.7 g/dL 3.9-5.0 [facility] (Jon Elizondo MD) Laboratory test finding (navigational concept) 2.5 GM/DL 2.4-3.2 [facility] (Jon Elizondo MD) Laboratory test finding (navigational concept) 1.9 0.8-2.0 [facility] (Jon Elizondo MD) Laboratory test finding (navigational concept) 9.9 mg/dL 8.4-10.2 [facility] (Jon Elizondo MD) Laboratory test finding (navigational concept) 1.1 mg/dL 0.2-1.3 [facility] (Jon Elizondo MD) Laboratory test finding (navigational concept) 302 U/L 38-126 Above high normal [facility] (Jon Elizondo MD) Laboratory test finding (navigational concept) 22 U/L 5-40 [facility] (Jon Elizondo MD) Laboratory test finding (navigational concept) 11 U/L 7-56 [facility] (Jon Elizondo MD) Laboratory test finding (navigational concept) 12.0 mmol/L 8.0-16.0 [facility] (Jon Elizondo MD) Laboratory test finding (navigational concept) 65 yrs [facility] (Jon Elizondo MD) Laboratory test finding (navigational concept) 59 mL/min [facility] (Jon Elizondo MD) Laboratory test finding (navigational concept) Laboratory test result [facility] (Jon Elizondo MD) Male GFR Interprentation 20-49 yrs >60 mL/min Normal 50-59 yrs >56 mL/min Normal 60-69 yrs >49 mL/min Normal 70-79yrs >42 mL/min Normal 80 and above >35 mL/min Normal Female GFR Interpretation 20-39 yrs >60 mL/min Normal 40-49 yrs >58 mL/min Normal 50-59 yrs >51 mL/min Normal 60-69 yrs >45 mL/min Normal 70-79 yrs >39 mL/min Normal 80 and above >32 mL/min Normal ID Date Data Source [id number] 02/05/2021 08:36:00 AM EDT [facility] (Jon Elizondo MD) Name Value Range Interpretation Code Description Data Tavo rce(s) Supporting Document(s) Laboratory test finding (navigational concept) Laboratory test result [facility] (Jon Elizondo MD) LIPID PANEL Laboratory test finding (navigational concept) 116 mg/dL 1 31-200 Below low normal [facility] (Jon Elizondo MD) Laboratory test finding (navigational concept) 71 mg/dL 35-160 [facility] (Jon Elizondo MD) Laboratory test finding (navigational concept) 48 mg/dL 29-86 [facility] (Jon Elizondo MD) Laboratory test finding (navigational concept) 62 mg/dL 65-175 Below low normal [facility] (Jon Elizondo MD) Laboratory test finding (navigational concept) 2.4 3.4-4.9 Below low normal [facility] (Jon Elizondo MD) Laboratory test finding (navigational concept) 1.29 1.00-3.55 [facility] (Jon Elizondo MD) CVE RISK CHOL/HDL LDL/HDL MEN: 1/2 AVERAGE 3.43 1.00 AVERAGE 4.97 3.55 2X AVERAGE 9.55 6.25 3X AVERAGE 23.99 7.99 WOMEN: 1/2 AVERAGE 3.27 1.47 AVERAGE 4.44 3.22 2X AVERAGE 7.05 5.03 3X AVERAGE 11.04 6.14 ID Date Data Source [id number] 02/05/2021 08:36:00 AM EDT [facility] (Jon Elizondo MD) Name Value Range Interpretation Code Description Data Tavo rce(s) Supporting Document(s) Cobalamin (Vitamin B12) [Mass/volume] in Serum or Plasma 1363 pg /mL 232-1245 Above high normal [facility] (Jon Elizondo MD) Thyrotropin [Units/volume] in Serum or Plasma by Detec tion limit <= 0.005 mIU/L 10.10 uIU/mL 0.47-5.01 Above high normal [facility] (Jon Elizondo MD) Natriuretic peptide.B prohormone N-Terminal [Mass/volu me] in Serum or Plasma 9221 pg/mL 0-125 Above high normal [facility] (Jon Elizondo MD) ID Date Data Source [id number] 02/05/2021 08:36:00 AM EDT [facility] (Jon Elizondo MD) Name Value Range Interpretation Code Description Data Tavo rce(s) Supporting Document(s) Laboratory test finding (navigational concept) Laboratory test result [facility] (Jon Elizondo MD) COMPLETE BLOOD COUNT Laboratory test finding (navigational concept) 6.0 10^3/uL 4.2-11.0 [facility] (Jon Elizondo MD) Laboratory test finding (navigational concept) 3.65 10^6/uL 4 .50-6.30 Below low normal [facility] (Jon Elizondo MD) Laboratory test finding (navigational concept) 11.4 g/dL 1 4.0-16.0 Below low normal [facility] (Jon Elizondo MD) Laboratory test finding (navigational concept) 36.5 % 4 1.0-51.0 Below low normal [facility] (Jon Elizodno MD) Laboratory test finding (navigational concept) 100.0 fL 8 0.0-94.0 Above high normal [facility] (Jon Elizondo MD) Laboratory test finding (navigational concept) 31.2 pg 27.0-34.0 [facility] (Jon Elizondo MD) Laboratory test finding (navigational concept) 31.2 g/dL 31.0-36.0 [facility] (Jon Elizondo MD) Laboratory test finding (navigational concept) 18.2 % 1 1.5-14.8 Above high normal [facility] (Jon Elizondo MD) Laboratory test finding (navigational concept) 151 10^3/uL 150-450 [facility] (Jon Elizondo MD) Laboratory test finding (navigational concept) 11.2 fL 7 .4-10.4 Above high normal [facility] (Jon Elizondo MD) Laboratory test finding (navigational concept) 78.6 % 37.0-80.0 [facility] (Jon Elizondo MD) Laboratory test finding (navigational concept) 10.4 % 2 5.0-40.0 Below low normal [facility] (Jon Elizondo MD) Laboratory test finding (navigational concept) 8.0 % 3.0-8.0 [facility] (Jon Elizondo MD) Laboratory test finding (navigational concept) 2.5 % 0.0-7.0 [facility] (Jon Elizondo MD) Laboratory test finding (navigational concept) 0.3 % 0.0-2.0 [facility] (Jon Elizondo MD) Laboratory test finding (navigational concept) 0.2 % 0.0-0.0 Above high normal [facility] (Jon Elizondo MD) Laboratory test finding (navigational concept) 0.0 % 0.0-0.0 [facility] (Jon Elizondo MD) Laboratory test finding (navigational concept) 4.71 10^3/uL 2.00-6.90 [facility] (Jon Elizondo MD) Laboratory test finding (navigational concept) 0.62 10^3/uL 0.60-3.40 [facility] (Jon Elizondo MD) Laboratory test finding (navigational concept) 0.48 10^3/uL 0.00-0.90 [facility] (Jon Elizondo MD) Laboratory test finding (navigational concept) 0.15 10^3/uL 0.00-0.70 [facility] (Jon Elizondo MD) Laboratory test finding (navigational concept) 0.01 10^3/uL 0.00-0.10 [facility] (Jon Elizondo MD) Laboratory test finding (navigational concept) 0.02 10^3/uL 0.00-0.20 [facility] (Jon Elizondo MD) Laboratory test finding (navigational concept) 0.00 10^3/uL 0.00-0.00 [facility] (Jon Elizondo MD) Laboratory test finding (navigational concept) Laboratory test result [facility] (Jon Elizondo MD) Laboratory test finding (navigational concept) Laboratory test result [facility] (Jon Elizondo MD) ID Date Data Source [id number] 02/05/2021 08:36:00 AM EDT [facility] (Jon Elizondo MD) Name Value Range Interpretation Code Description Data Tavo rce(s) Supporting Document(s) Iron [Mass/volume] in Serum or Plasma 45 ug/dL 42-135 [facility] (Jon Elizondo MD) Magnesium [Mass/volume] in Serum or Plasma 1.9 mg/dL 1.7-2.2 [facility] (Jon Elizondo MD) ID Date Data Source [id number] 02/05/2021 08:36:00 AM EDT [facility] ([facility]) Name Value Range Interpretation Code Description Data Tavo rce(s) Supporting Document(s) Thyrotropin [Units/volume] in Serum or Plasma 10.10 uIU/mL 0. 47-5.01 Above high normal [facility] ([facility]) Cobalamin (Vitamin B12) [Mass/volume] in Serum or Plasma 1363 pg /mL 232-1245 Above high normal [facility] ([facility]) Natriuretic peptide.B prohormone N-Terminal [Mass/volu me] in Serum or Plasma 9221 pg/mL 0-125 Above high normal [facility] ID Date Data Source [id number] 02/05/2021 08:36:00 AM EDT [facility] ([facility]) Name Value Range Interpretation Code Description Data Tavo rce(s) Supporting Document(s) Comprehensive [employer] Laboratory test result [facility] ([facility]) COMPREHENSIVE METABOLIC PANEL Potassium 4.5 meq/L 3.6-5.0 [facility] ([facility]) Chloride 105 meq/L 98-107 [facility] ([facility]) Sodium 142 meq/L 134-153 [facility] ([facility]) Co2 25 meq/L 22-30 [facility] ([facility]) Glucose 108 mg/dL 70-99 Above high normal [facility] ([facility]) BUN 27 mg/dL 7-21 Above high normal [facility] ([facility]) BUN/Creat 21 8-27 [facility] ([facility]) Total Protein 7.2 g/dL 6.3-8.2 [facility] ([facility]) Creatinine 1.3 mg/dL 0.7-1.5 [facility] ([facility]) Albumin 4.7 g/dL 3.9-5.0 [facility] ([facility]) Globulin 2.5 GM/DL 2.4-3.2 [facility] ([facility]) A/G Ratio 1.9 0.8-2.0 [facility] ([facility]) Calcium 9.9 mg/dL 8.4-10.2 [facility] ([facility]) Alkaline Phos 302 U/L 38-126 Above high normal MED[facility] NT ([facility]) Total Bili 1.1 mg/dL 0.2-1.3 [facility] ([facility]) Sgot/Ast 22 U/L 5-40 [facility] ([facility]) SGPT/Alt 11 U/L 7-56 [facility] ([facility]) Age 65 yrs [facility] ([facility]) Anion Gap 12.0 mmol/L 8.0-16.0 [facility] ([facility]) Afr Amer GFR Laboratory test result [facility] ([facility]) Male GFR Interprentation 20-49 yrs >60 mL/min Normal 50-59 yrs >56 mL/min Normal 60-69 yrs >49 mL/min Normal 70-79yrs >42 mL/min Normal 80 and above >35 mL/min Normal Female GFR Interpretation 20-39 yrs >60 mL/min Normal 40-49 yrs >58 mL/min Normal 50-59 yrs >51 mL/min Normal 60-69 yrs >45 mL/min Normal 70-79 yrs >39 mL/min Normal 80 and above >32 mL/min Normal Non-Aa GFR 59 mL/min [facility] ([facility]) ID Date Data Source [id number] 02/05/2021 08:36:00 AM EDT [facility] ([facility]) Name Value Range Interpretation Code Description Data Tavo rce(s) Supporting Document(s) Cve Panel Laboratory test result [facility] ([facility]) LIPID PANEL Cholesterol 116 mg/dL 131-200 Below low normal [facility] ([facility]) Triglycerides 71 mg/dL 35-160 [facility] ([facility]) HDL 48 mg/dL 29-86 [facility] ([facility]) LDL 62 mg/dL 65-175 Below low normal [facility] ([facility]) Risk Factor 2.4 3.4-4.9 Below low normal [facility] ([facility]) LDL/HDL 1.29 1.00-3.55 [facility] ([facility]) CVE RISK CHOL/HDL LDL/HDL MEN: 1/2 AVERAGE 3.43 1.00 AVERAGE 4.97 3.55 2X AVERAGE 9.55 6.25 3X AVERAGE 23.99 7.99 WOMEN: 1/2 AVERAGE 3.27 1.47 AVERAGE 4.44 3.22 2X AVERAGE 7.05 5.03 3X AVERAGE 11.04 6.14 ID Date Data Source [id number] 02/05/2021 08:36:00 AM EDT [facility] ([facility]) Name Value Range Interpretation Code Description Data Tavo rce(s) Supporting Document(s) Magnesium [Mass/volume] in Serum or Plasma 1.9 mg/dL 1.7-2.2 [facility] ([facility]) Iron [Mass/volume] in Serum or Plasma 45 ug/dL 42-135 [facility] ([facility]) ID Date Data Source [id number] 02/05/2021 08:36:00 AM EDT [facility] ([facility]) Name Value Range Interpretation Code Description Data Tavo rce(s) Supporting Document(s) CBC W/Automated Diff Laboratory test result [facility] ([facility]) COMPLETE BLOOD COUNT WBC 6.0 10^3/uL 4.2-11.0 [facility] ([facility]) RBC 3.65 10^6/uL 4.50-6.30 Below low normal [facility] ([facility]) Hemoglobin 11.4 g/dL 14.0-16.0 Below low normal [facility] ( [facility]) Hematocrit 36.5 % 41.0-51.0 Below low normal [facility] ( [facility]) MCHC 31.2 g/dL 31.0-36.0 [facility] ([facility]) MCH 31.2 pg 27.0-34.0 [facility] ([facility]) MCV 100.0 fL 80.0-94.0 Above high normal [facility] ([facility]) MPV 11.2 fL 7.4-10.4 Above high normal [facility] ([facility]) RDW 18.2 % 11.5-14.8 Above high normal [facility] ([facility]) Platelets 151 10^3/uL 150-450 [facility] ([facility]) Tripp 8.0 % 3.0-8.0 [facility] ([facility]) Lymph 10.4 % 25.0-40.0 Below low normal [facility] ( [facility]) Neut 78.6 % 37.0-80.0 [facility] ([facility]) %Ig 0.2 % 0.0-0.0 Above high normal [facility] ([facility]) Baso 0.3 % 0.0-2.0 [facility] ([facility]) Eos 2.5 % 0.0-7.0 [facility] ([facility]) #Lymph 0.62 10^3/uL 0.60-3.40 [facility] ([facility]) #Neut 4.71 10^3/uL 2.00-6.90 [facility] ([facility]) %NRBC 0.0 % 0.0-0.0 [facility] ([facility]) #Eos 0.15 10^3/uL 0.00-0.70 [facility] ([facility]) #Baso 0.02 10^3/uL 0.00-0.20 [facility] ([facility]) #Tripp 0.48 10^3/uL 0.00-0.90 [facility] ([facility]) #NRBC 0.00 10^3/uL 0.00-0.00 [facility] ([facility]) #Ig 0.01 10^3/uL 0.00-0.10 [facility] ([facility]) Manual Diff Laboratory test result M [facility] ([facility]) RBC Morph Laboratory test result [facility] ([facility]) ID Date Data Source [id number] 02/05/2021 09:50:00 AM EDT [facility] Value Range Interpretation Code Description Data Tavo rce(s) Supporting Document(s) BNP 9221 PG/ML 0 - 125 [facility] ID Date Data Source [id number] 02/05/2021 09:50:00 AM EDT [facility] Value Range Interpretation Code Description Data Tavo rce(s) Supporting Document(s) Cobalamin (Vitamin B12) [Mass/volume] in Serum or Plasma 1363 PG /ML 232 - 1245 H [facility] ID Date Data Source [id number] 02/05/2021 09:50:00 AM EDT [facility] Value Range Interpretation Code Description Data Tavo rce(s) Supporting Document(s) Thyrotropin [Units/volume] in Serum or Plasma by Detec tion limit <= 0.05 mIU/L 10.10 uIU/mL 0.47 - 5.01 H [facility] ID Date Data Source [id number] 02/05/2021 09:47:00 AM EDT [facility] Value Range Interpretation Code Description Data Tavo rce(s) Supporting Document(s) CVE PANEL [facility] LIPID PANEL Cholesterol [Mass/volume] in Serum or Plasma 116 MG/DL 131 - 200 L [facility] Deprecated Triglyceride [Mass/volume] in Serum or Plasma 71 MG/DL 3 5 - 160 [facility] HDL 48 MG/DL 29 - 86 [facility] Cholesterol in LDL [Mass/volume] in Serum or Plasma by Direc t assay 62 mg/dL 65 - 175 L [facility] Cholesterol.total/Cholesterol in HDL [Mass Ratio] in Serum o r Plasma 2.4 3.4 - 4.9 L [facility] LDL/HDL 1.29 1.00 - 3.55 [facility] CVE RISK CHOL/HDL LDL/HDLMEN: 1/2 AVERAGE 3.43 1.00 AVERAGE 4.97 3.55 2X AVERAGE 9.55 6.25 3X AVERAGE 23.99 7.99WOMEN: 1/2 AVERAGE 3.27 1.47 AVERAGE 4.44 3.22 2X AVERAGE 7.05 5.03 3X AVERAGE 11.04 6.14 ID Date Data Source [id number] 02/05/2021 09:47:00 AM EDT [facility] Name Value Range Interpretation Code Description Data Tavo rce(s) Supporting Document(s) COMPREHENSIVE METABOLIC PANEL [facility] COMPREHENSIVE METABOLIC PANEL Sodium [Moles/volume] in Serum or Plasma 142 mEq/L 134 - 153 [facility] Potassium [Moles/volume] in Serum or Plasma 4.5 mEq/L 3.6 - 5.0 [facility] Chloride [Moles/volume] in Serum or Plasma 105 mEq/L 98 - 107 [facility] Carbon dioxide, total [Moles/volume] in Serum or Plasma 25 MEQ/L 22 - 30 [facility] Glucose [Mass/volume] in Serum or Plasma 108 MG/DL 70 - 99 [facility] BUN 27 MG/DL 7 - 21 [facility] Creatinine [Mass/volume] in Serum or Plasma 1.3 MG/DL 0.7 - 1.5 [facility] BUN/CREAT 21 8 - 27 [facility] Protein [Mass/volume] in Serum or Plasma 7.2 G/DL 6.3 - 8.2 [facility] Albumin [Mass/volume] in Serum or Plasma 4.7 G/DL 3.9 - 5.0 [facility] Globulin [Mass/volume] in Serum by calculation 2.5 GM/DL 2.4 - 3.2 [facility] A/G RATIO 1.9 0.8 - 2.0 [facility] Calcium [Mass/volume] in Serum or Plasma 9.9 MG/DL 8.4 - 10.2 [facility] Bilirubin.total [Mass/volume] in Serum or Plasma 1.1 MG/DL 0.2 - 1.3 [facility] Alkaline phosphatase [Enzymatic activity/volume] in Serum or Plasma 302 U/L 38 - 126 H [facility] Aspartate aminotransferase [Enzymatic activity/volume] in Serum or Plasma 22 U/L 5 - 40 [facility] Alanine aminotransferase [Enzymatic activity/volume] in Seru m or Plasma 11 U/L 7 - 56 [facility] Anion gap 3 in Serum or Plasma 12.0 mmol/L 8.0 - 16.0 [facility] AGE 65 yrs [facility] al NON-AA GFR 59 mL/min [facility] AFR AMER GFR >60 mL/min [facility] Male GFR In terprentation 20-49 yrs >60 mL/min Normal 50-59 yrs >56 mL/min Normal 60-69 yrs >49 mL/min Normal 70-79yrs >42 mL/min Normal 80 and above >35 mL/min Normal Female GFR Interpretation 20-39 yrs >60 mL/min Normal 40-49 yrs >58 mL/min Normal 50-59 yrs >51 mL/min Normal 60-69 yrs >45 mL/min Normal 70-79 yrs >39 mL/min Normal 80 and above >32 mL/min Normal ID Date Data Source [id number] 02/05/2021 09:27:00 AM EDT [facility] Name Value Range Interpretation Code Description Data Tavo rce(s) Supporting Document(s) Magnesium [Mass/volume] in Serum or Plasma 1.9 MG/DL 1.7 - 2.2 [facility] ID Date Data Source [id number] 02/05/2021 09:26:00 AM EDT [facility] Name Value Range Interpretation Code Description Data Tavo rce(s) Supporting Document(s) Iron [Mass/volume] in Serum or Plasma 45 UG/DL 42 - 135 [facility] ID Date Data Source [id number] 02/05/2021 08:48:00 AM EDT [facility] Name Value Range Interpretation Code Description Data Tavo rce(s) Supporting Document(s) CBC W/AUTOMATED DIFF [facility] COMPLETE BLOOD COUNT Leukocytes [#/volume] in Blood by Automated count 6.0 10^3/uL 4.2 - 1 1.0 [facility] Erythrocytes [#/volume] in Blood by Automated count 3.65 10^6/uL 4. 50 - 6.30 L [facility] Hemoglobin [Mass/volume] in Blood 11.4 g/dL 14.0 - 16.0 L [facility] Hematocrit [Volume Fraction] of Blood by Automated count 36.5 % 4 1.0 - 51.0 L [facility] Erythrocyte mean corpuscular volume [Entitic volume] b y Automated count 100.0 fL 80.0 - 94.0 H [facility] Erythrocyte mean corpuscular hemoglobin [Entitic mass] by Automated count 31.2 pg 27.0 - 34.0 [facility] Erythrocyte mean corpuscular hemoglobin concentration [Mass/volume] by Automated count 31.2 g/dL 31.0 - 36.0 [facility] Erythrocyte distribution width [Ratio] by Automated count 18.2 % 11.5 - 14.8 H [facility] Platelets [#/volume] in Blood by Automated count 151 10^3/uL 150 - 45 0 [facility] Platelet mean volume [Entitic volume] in Blood by Automated count 11.2 fL 7.4 - 10.4 H [facility] Neutrophils/100 leukocytes in Blood by Automated count 78.6 % 37. 0 - 80.0 [facility] Lymphocytes/100 leukocytes in Blood by Manual count 10.4 % 25.0 - 40.0 L [facility] Monocytes/100 leukocytes in Blood by Automated count 8.0 % 3.0 - 8.0 [facility] Eosinophils/100 leukocytes in Blood by Automated count 2.5 % 0.0 - 7.0 [facility] Basophils/100 leukocytes in Blood by Automated count 0.3 % 0.0 - 2.0 [facility] %IG 0.2 % 0.0 - 0.0 [facility] %NRBC 0.0 % 0.0 - 0.0 [facility] al Neutrophils [#/volume] in Blood by Automated count 4.71 10^3/uL 2.00 - 6.90 [facility] Lymphocytes [#/volume] in Blood by Automated count 0.62 10^3/uL 0.60 - 3.40 [facility] Monocytes [#/volume] in Blood by Automated count 0.48 10^3/uL 0.00 - 0.90 [facility] Eosinophils [#/volume] in Blood by Automated count 0.15 10^3/uL 0.00 - 0.70 [facility] Basophils [#/volume] in Blood by Automated count 0.02 10^3/uL 0.00 - 0.20 [facility] #IG 0.01 10^3/uL 0.00 - 0.10 [facility] #NRBC 0.00 10^3/uL 0.00 - 0.00 [facility] MANUAL DIFF NOT INDICATED [facility] RBC MORPH NOT INDICATED [facility] spital ID Date Data Source [id number] 01/22/2021 12:03:00 [place] [address] PROGRESS NOTENAME: FERNIE Charlton ROOM#: 108-1DATE OF : 1955 MR#: [id number] DATE: 01/20/21 OF SERVICE: 01/22/2021UBJECTIVE:This patient has angina and congestive heart failure. Still has ankle edema, though dyspnea is better.REVIEW OF SYSTEMS:CONSTITUTIONAL: The patient reports no anorexia, fever, night sweats, systemic illness, or recent weightgain/loss.HEAD: No head trauma or headaches.EYES: No blurred or double vision.ENT: No hearing loss, epistaxis, dysphagia, or sinus congestion.RESPIRATORY: No cough, VELEZ, wheezing, hemoptysis, sputum production, or SOB.CARDIOVASCULAR: No chest pain, rapid or irregular heartbeat, orthopnea, PND, or lower extremityedema.GI: No nausea, vomiting, abdominal pain, or change in bowel habits.: No pain with urination, urgency or frequency, blood in urine, difficulty starting or stopping urinarystream, urinary infection, stones, or cysts.MUSCULOSKELETAL: No arthritis, joint swelling, or joint stiffness.NEUROLOGIC: No dizziness, syncope, or weakness.ENDOCRINE: No excessive urination or excessive thirst.OBJECTIVE:GENERAL: Moderately built.VITAL SIGNS: Blood pressure 110/80.HEENT: Head is normal.HEART: Rate is 70.LUNGS: Diminished at the bases.ABDOMEN: Soft.EXTREMITIES: 2+ edema.LABORATORY DATA:WBC 5.2, RBC 3.1, hemoglobin 9.6, hematocrit 30.7, MCV 99, MCH 31, MCHC 31.3, RDW 17.4,platelets 147, MPV 11.2. Sodium 140, potassium 4.6, chloride 106, CO2 23, glucose 93, BUN 37,creatinine 1.6, BUN/creatinine 23, total protein 6.3, albumin 4.2, globulin 2.1, A/G ratio 2, calcium9.4.ASSESSMENT/PLAN:The patient has the following problems: 1 [place] [id number] PROGRESS NOTENAME: FERNIE Charlton ROOM#: 108-1DATE OF : 1955 MR#: [id number] DATE: 01/20/21 . Congestive heart failure systolic. Patient is on Bumex 1 mg bid. Also, he was put on Verquvo 2.5 mg daily.2. Anemia, hemoglobin 9.6. Iron is low. We will give Venofer IV.3. Renal failure, creatinine 1.6. We will watch that closely. See Nephrology as an outpatient.DD: Jon Elizondo MD, PC 01/22/21 09:25DT: JULIANE 01/22/21 12:03DS: Jon Elizondo MD, PC 01/27/21 09:13 2 Name Value Range Interpretation Code Description Data Tavo rce(s) Supporting Document(s) ID Date Data Source [id number] 01/21/2021 12:17:00 PM EDT [place] [facility] [address] [address] PROGRESS NOTENAME: FERNIE Charlton ROOM#: 108-1DATE OF : 1955 MR#: [id number] DATE: 01/20/21 OF SERVICE: 01/21/21SUBJECTIVE: This patient has pneumonia right lung. The dyspnea and wheezing is better. He still hasCOPD. He is responding well to the IV antibiotic.REVIEW OF SYSTEMS:CONSTITUTIONAL: The patient reports no anorexia, fever, night sweats, systemic illness, or recent weightgain/loss.HEAD: No head trauma or headaches.EYES: No blurred or double vision.ENT: No hearing loss, epistaxis, dysphagia, or sinus congestion.RESPIRATORY: No cough, VELEZ, wheezing, hemoptysis, sputum production, or SOB.CARDIOVASCULAR: No chest pain, rapid or irregular heartbeat, orthopnea, PND, or lower extremityedema.GI: No nausea, vomiting, abdominal pain, or change in bowel habits.: No pain with urination, urgency or frequency, blood in urine, difficulty starting or stopping urinarystream, urinary infection, stones, or cysts.MUSCULOSKELETAL: No arthritis, joint swelling, or joint stiffness.NEUROLOGIC: No dizziness, syncope, or weakness.ENDOCRINE: No excessive urination or excessive thirst.OBJECTIVE: On exam, moderately built. Blood pressure is 130/80. Head is normal. Heart is regular sinusrhythm. Lungs with scattered rhonchi in the lungs. Abdomen is soft. Extremities are normal.LABORATORY DATA: WBC 5.5, RBC 2.86, hemoglobin 9.0, hematocrit 28.4, MCV 99.3, MCH31.5, MCHC 31.7, RDW 17.4, platelets 139, MPV 10.6. Sodium 140, potassium 4.4, chloride 107,CO2 21, glucose 112, BUN 34, creatinine 1.5, BUN/creatinine ratio 23, calcium 9.1, anion gap 12.0.ASSESSMENT/PLAN:1. Patient has pneumonia right lung. Plan to continue the antibiotic with Levaquin 500 mg daily IV.2. Hyponatremia. We will give normal saline 500 cc IV.3. Anemia. Hemoglobin is 9.8. He was given IV iron.4. He will be made inpatient.DD: Jon Elizondo MD, 01/21/21 09:16DT: ROB 01/21/21 12:17DS: Jon Elizondo MD, PC 01/27/21 09:13 1 [place] [id number] PROGRESS NOTENAME: FERNIE Charlton ROOM#: 108-1DATE OF : 1955 MR#: [id number] DATE: 01/20/21 2 Name Value Range Interpretation Code Description Data Tavo rce(s) Supporting Document(s) ID Date Data Source [id number] 01/21/2021 11:49:00 [place] [address] HISTORY AND PHYSICALNAME: FERNIE Charlton ROOM#: 108-1DATE OF : 1955 MR#: [id number] PHYS: Jon Elizondo MD, DATE: 01/20/21CHIEF COMPLAINT: This 65-year-old male presented with chest pain radiating to the neck andarm.HISTORY OF PRESENT ILLNESS:This patient one hour before admission had severe chest pain in the retrosternal area radiating to theright arm and left arm accompanied with sweating and dyspnea. Pain was crushing in character. Hecame to the emergency room. He was given 2 nitroglycerin and his blood pressure dropped down to 90systolic. The patient had recent coronary angiogram done at [facility] which did not showany occlusive disease. Patient has known history of coronary artery disease, coronary bypass, ICDdevice. For the last few days, the patient was feeling fine, except the chest pain happened suddenly. Hehad been drinking some alcohol. The patient does have dyspnea on exertion, edema of the ankles.There are no chills or fever. No cough or hemoptysis. No bowel disturbance. He has some orthopneaand paroxysmal nocturnal dyspnea.REVIEW OF SYSTEMS:CONSTITUTIONAL: The patient reports no anorexia, fever, night sweats, systemic illness, or recent weightgain/loss.HEAD: No head trauma or headaches.EYES: No blurred or double vision.ENT: No hearing loss, epistaxis, dysphagia, or sinus congestion.RESPIRATORY: He is dyspneic on minimal exertion.CARDIOVASCULAR: He had chest pain, as described. He also has ankle edema.GI: No nausea, vomiting, abdominal pain, or change in bowel habits.: No pain with urination, urgency or frequency, blood in urine, difficulty starting or stopping urinarystream, urinary infection, stones, or cysts.MUSCULOSKELETAL: No arthritis, joint swelling, or joint stiffness.NEUROLOGIC: No dizziness, syncope, or weakness.ENDOCRINE: No excessive urination or excessive thirst.PERSONAL HISTORY:He smokes half to one pack per day. He drinks alcohol in moderation.FAMILY HISTORY:His father from prostate cancer. Mother from [place].PAST MEDICAL AND SURGICAL HISTORY:The patient's past medical and surgical history were reviewed. The patient was admitted on 06/28/19 forcongestive heart failure. He was admitted 2 weeks ago for chest pain [place] [address] HISTORY AND PHYSICALNAME: FERNIE Charlton ROOM#: 108-1DATE OF : 1955 MR#: [id number] PHYS: Jon Elizondo MD, DATE: 01/20/21[facility] where the coronary angiogram did not show any occlusive disease. Coronaryangiogram on 04/24/18 did show patent graft. The UMANA was patent. The graft to the LAD wasoccluded. Ejection fraction was 30%. He was hospitalized [facility] fora stroke with right hemiplegia. He had a left subclavian carotid bypass with Dr. Odonnell in September 2019.He had lumbar disc surgery, femoral artery bypass, carotid endarterectomy right, cataract removalbilateral, ICD device. He has known history of COPD, hypertension, hypothyroidism. The patient hasknown history of asthma, COPD, CVA, hypertension, sleep apnea, URI.MEDICATIONS: 1. Allopurinol 300 mg daily 2. Aspirin 81 mg daily 3. Lipitor 80 mg daily 4. Ferrous sulfate daily 5. Fluticasone nasal spray 6. Furosemide 40 mg b.i.d. 7. Handheld DuoNeb treatments 8. Synthroid 75 mcg daily 9. Metoprolol ER 25 mg daily 10. Nicoderm 25 mg daily 11. Prilosec daily 12. Entresto 49-51 mg b.i.d.PHYSICAL EXAMINATION:GENERAL: Moderately-built.VITAL SIGNS: Blood pressure is 110/70. Pulse was 70. Temperature 98. Respirations 18.HEENT: Head is normal. Pupils and fundus reveal grade 2 changes. Mouth normal. Tongue dry.NECK: Supple. No lymphadenopathy. Thyroid not enlarged. Neck veins are distended. No carotidbruits.CHEST: Symmetrical.HEART: Regular sinus rhythm. No murmur or gallop. Heart is enlarged.LUNGS: Rales at the bases.ABDOMEN: Soft and nontender.EXTREMITIES: Normal. 2+ pitting edema. Peripheral pulses are poorly palpable.NEUROLOGICAL: Normal.LABORATORY DATA:Lab tests showed that hemoglobin was 10.2, alkaline phosphatase was 273, BUN 33, creatinine is 1.5. 2 [place] [id number] HISTORY AND PHYSICALNAME: FERNIE Charlton ROOM#: [facility]DATE OF : 1955 MR#: [id number] PHYS: Jon Elizondo MD, PC DATE: 01/20/21IMPRESSION: 1. Angina pectoris, rule out NH. 2. Chest pain. 3. Congestive heart failure, systolic ejection fraction of 30%. 4. Cardiomyopathy. 5. History of Watchman device. 6. History of ICD device. 7. History of coronary bypass. 8. History of carotid artery surgery bilateral. 9. History of right fem oral artery angioplasty. 10. History of CVA. 11. History of sleep apnea. 12. History of COPD. 13. Asthma.PLAN:This patient will be treated as angina pectoris and also congestive heart failure. We will give Bumex 1mg twice a day IV and see the response to that. Also, his serum creatinine is high at 1.6. We arerecording intake and output.DD: Jon Elizondo MD, PC 01/21/21 09:13DT: ROB 01/21/21 11:49DS: Jon Elizondo MD, PC 01/27/21 09:13 3 Name Value Range Interpretation Code Description Data Tavo rce(s) Supporting Document(s) ID Date Data Source [id number] 01/23/2021 01:38:00 [place] [address] DISCHARGE SUMMARYNAME: FERNIE Charlton ROOM#: 108-1DATE OF : 1955 MR#: [id number] PHYS: Jon Elizondo MD, PC DATE: 01/22/21 DISCHARGED: 01/23/21HISTORY OF PRESENT ILLNESS:This 65-year-old white male presented chest pain radiating to the neck and arm. This patient hasknown coronary bypass. Recent coronary angiogram did not show any further occlusive disease. Hehas known history of atrial fib, has a Watchman device, history of ICD device. The symptoms weretypical angina chest pain. He was admitted for chest pain. On exam, his blood pressure was 120/80.Head was normal. Heart rate was 70. Lungs clear. Abdomen soft. Had 2+ edema. Admissionimpression was angina, rule out congestive heart failure, possible congestive heart failure with ejectionfraction 30%, Watchman device, ICD device, coronary bypass.LABORATORY STUDIES:Lab tests showed that the hemoglobin was 10.2, alkaline phosphatase 273, BUN 33, creatinine 1.5. X-ray of the chest did show congestive changes. CAT scan of the abdomen did not show anyhydronephrosis, kidney stones. There was odell ateral pleural effusion. EKG showed AV sequential pacedrhythm. Troponin was negative. On 01/21, sodium 140, potassium 4.4, BUN 34, creatinine 1.5,alkaline phos 260, hemoglobin 9. Iron was 48. Serum creatinine went up with the diuretic. On 01/22,creatinine 1.6, BUN 37, hemoglobin 9.6. On 01/23, creatinine 1.8, BUN 39.COURSE DURING HOSPITALIZATION:Patient was treated for angina pectoris. Ranexa was added 500 bid. Put on Verquvo, the new medicinefor congestive heart failure, 2.5 mg daily. He underwent treatment with Ranexa 500 bid, nitroglycerinprn. Patient was anemic, Venofer 200 mg IV was given, Procrit 20,000 units subcu. On 01/22, halfnormal saline 60 cc/hour was given for 500 cc to improve kidney function. Patient's angina got better.Dyspnea got better. For renal failure, he was referred to a petroleum supply specialist as an outpatient. He poses adifficult management problem with renal failure and congestive heart failure. Bumex was started 1 IVbid. Verquvo was added 2.5 mg daily. He did very well, and it was decided to discharge him. Becausehis creatinine is high, he will be evaluated by nephrology as an outpatient. Diet: 2 gram salt.DISCHARGE MEDICATIONS:1. Verquvo 2.5 mg daily.2. Allopurinol 300 mg daily.3. Ascorbic acid 500 mg daily.4. Aspirin 325 mg daily.5. Lipitor 80 mg daily.6. Claritin 10 mg daily.7. Flonase nasal spray.8. Handheld DuoNeb treatment.9. Bumex 1 mg bid.10. Synthroid 75 mcg daily. 1 [place] [id number] DISCHARGE SUMMARYNAME: FERNIE Charlton ROOM#: 108-1DATE OF : 1955 MR#: [id number] PHYS: Jon Elizondo MD, PC DATE: 01/22/21 DISCHARGED: 01/23/21 11. Magnesium daily. 12. Nitroglycerin 0.4 mg prn. 13. Toprol XL 25 mg daily.FINAL DIAGNOSES:1. ANGINA PECTORIS, STABLE.2. CONGESTIVE HEART FAILURE, SYSTOLIC EJECTION FRACTION 30%.3. CARDIOMYOPATHY.4. HISTORY OF WATCHMAN DEVICE.5. HISTORY OF ATRIAL FIBRILLATION.6. HISTORY OF ICD DEVICE.7. HISTORY OF CORONARY BYPASS.8. HISTORY OF CAROTID ARTERY SURGERY BILATERAL.9. HISTORY OF RIGHT FEMORAL ARTERY ANGIOPLASTY.10. HISTORY OF CEREBROVASCULAR ACCIDENT.11. HISTORY OF SLEEP APNEA.12. HISTORY OF CHRONIC OBSTRUCTIVE PULMONARY DISEASE.13. HISTORY OF ASTHMA.DD: Jon Elizondo MD, PC 01/23/21 09:10DT: SSR 01/23/21 13:38DS: Jon Elizondo MD, PC 01/27/21 09:13 2 Name Value Range Interpretation Code Description Data Tavo e(s) Supporting Document(s) ID Date Data Source [id number] 01/24/2021 02:26:00 [place] [address] RESPIRATORY CARE REPORT ==== ---------NAME------- NUMBER SEX AGE ADMIT DISC. XRAY# F/C TYPEMARTEL ADEBAYO Charlton [id number] M 65 01/22/21 01/23/21 [id number] M4 I/P DATE OF : 1955 M/R# [id number] PH#: [phone] 108-1 LOCATION: EMERGENCY DEPT EKG [id number] COMP LETE:01/23/21 07:56 CLC [id number] PHYSICIAN: CARO DILLON Name Value Range Interpretation Code Description Data Tavo rce(s) Supporting Document(s) ID Date Data Source [id number] 01/23/2021 08:02:00 [place] [address] PHONE: [phone] FAX: [phone] Name .................. : FERNIE Charlton Acct Number.................. : [id number] ROOM. ................. : 108-1 Number ................... : [id number] Stay type ............. : O/P Discharge Date......... ... : Admit Date ......... : 01/20/21 Admit Phys .................... : CARO DILLON Date of ....... : 1955 Family Phys ................... : CARO WILMA Phone .................. : [phone] Age ................................ : 65 Film# .................. .:[id number] Sex ................................. : M Unsigned transcriptions are preliminary reports and do not represent a medical or legal document CHEST PORTABLE [id number] COMPLETE:01/21/21 01:18 AML [id number] Reason(s): Chest Pain PORTABLE CHEST SINGLE VIEW 10:34 PM HISTORY: Chest pain COMPARISON: Most recently 12/30/20 FINDINGS: Sternotomy. Pacer defibrillator. No mediastinal or hilar mass. Mildly enlarged cardiac silhouette similar to prior. Left neck clips. Lower inspiratory volume. Increased vascular distention and interstitial prominence likely mild worsening CHF. Small right pleural effusions similar to prior. No pneumothorax. IMPRESSION: Lower inspiratory volume. Even allowing for this vascular and interstitial prominence appears increased likely mild but worsening CHF. Electronically Reviewed and Signed By Dhruv Henry MD , 01/23/21 08:02, RUDOLPH Transcribe Initials: ARACELY , Transcribe Date: 01/21/21 09:06, Dictation Date: Copy for: 002 [facility] Copy for: 710 [facility] Page 1 of 1 Name Value Range Interpretation Code Description Data Tavo rce(s) Supporting Document(s) ID Date Data Source [id number] 01/23/2021 07:55:00 AM EDT [facility] [address] [place] [address] RESPIRATORY CARE REPORT ==== ---------NAME------- NUMBER SEX AGE ADMIT DISC. XRAY# F/C TYPEMARTEL ADEBAYO Charlton [id number] M 65 01/22/21 [id number] M4 I/P DATE OF : 1955 M/R# [id number] #: [phone] [id number] LOCATION: EMERGENCY DEPT EKG [id number] COMP LETE:01/22/21 08:03 CJM [id number] PHYSICIAN: CARO DILLON Name Value Range Interpretation Code Description Data Tavo rce(s) Supporting Document(s) ID Date Data Source [id number] 01/23/2021 05:31:00 AM EDT [facility] (Jno Elizondo MD) Name Value Range Interpretation Code Description Data Tavo rce(s) Supporting Document(s) Laboratory test finding (navigational concept) Laboratory test result [facility] (Jon Elizondo MD) COMPREHENSIVE METABOLIC PANEL Laboratory test finding (navigational concept) 4.7 meq/L 3.6-5.0 [facility] (Jon Elizondo MD) Laboratory test finding (navigational concept) 139 meq/L 134-153 [facility] (Jon Elizondo MD) Laboratory test finding (navigational concept) 23 meq/L 22-30 [facility] (Jon Elizondo MD) Laboratory test finding (navigational concept) 104 meq/L 98-107 [facility] (Jon Elizondo MD) Laboratory test finding (navigational concept) 39 mg/dL 7-21 Above high normal [facility] (Jon Elizondo MD) Laboratory test finding (navigational concept) 95 mg/dL 70-99 [facility] (Jon Elizondo MD) Laboratory test finding (navigational concept) 1.8 mg/dL 0 .7-1.5 Above high normal [facility] (Jon Elizondo MD) Laboratory test finding (navigational concept) 22 8-27 [facility] (Jon Elizondo MD) Laboratory test finding (navigational concept) 6.2 g/dL 6 .3-8.2 Below low normal [facility] (Jon Elizondo MD) Laboratory test finding (navigational concept) 4.2 g/dL 3.9-5.0 [facility] (Jon Elizondo MD) Laboratory test finding (navigational concept) 2.0 GM/DL 2 .4-3.2 Below low normal [facility] (Jon Elizondo MD) Laboratory test finding (navigational concept) 2.1 0.8-2.0 Above high normal [facility] (Jon Elizondo MD) Laboratory test finding (navigational concept) 9.4 mg/dL 8.4-10.2 [facility] (Jon Elizondo MD) Laboratory test finding (navigational concept) 0.7 mg/dL 0.2-1.3 [facility] (Jon Elizondo MD) Laboratory test finding (navigational concept) 289 U/L 38-126 Above high normal [facility] (Jon Elizondo MD) Laboratory test finding (navigational concept) 15 U/L 5-40 [facility] (Jon Elizondo MD) Laboratory test finding (navigational concept) 12 U/L 7-56 [facility] (Jon Elizondo MD) Laboratory test finding (navigational concept) 12.0 mmol/L 8.0-16.0 [facility] (Jon Elizondo MD) Laboratory test finding (navigational concept) 65 yrs [facility] (Jon Elizondo MD) Laboratory test finding (navigational concept) 41 mL/min [facility] (Jon Elizondo MD) Laboratory test finding (navigational concept) 49 mL/min [facility] (Jon Elizondo MD) Male GFR Interprentation 20-49 yrs >60 mL/min Normal 50-59 yrs >56 mL/min Normal 60-69 yrs >49 mL/min Normal 70-79yrs >42 mL/min Normal 80 and above >35 mL/min Normal Female GFR Interpretation 20-39 yrs >60 mL/min Normal 40-49 yrs >58 mL/min Normal 50-59 yrs >51 mL/min Normal 60-69 yrs >45 mL/min Normal 70-79 yrs >39 mL/min Normal 80 and above >32 mL/min Normal ID Date Data Source [id number] 01/23/2021 05:31:00 AM EDT [facility] (Jon Elizondo MD) Name Value Range Interpretation Code Description Data Tavo rce(s) Supporting Document(s) Magnesium [Mass/volume] in Serum or Plasma 1.8 mg/dL 1.7-2.2 [facility] (Jon Elizondo MD) ID Date Data Source [id number] 01/23/2021 05:31:00 AM EDT [facility] (Jon Elizondo MD) Name Value Range Interpretation Code Description Data Tavo rce(s) Supporting Document(s) Laboratory test finding (navigational concept) Laboratory test result [facility] (Jon Elizondo MD) COMPLETE BLOOD COUNT Laboratory test finding (navigational concept) 3.10 10^6/uL 4 .50-6.30 Below low normal [facility] (Jon Elizondo MD) Laboratory test finding (navigational concept) 5.8 10^3/uL 4.2-11.0 [facility] (Jon Elizondo MD) Laboratory test finding (navigational concept) 9.7 g/dL 1 4.0-16.0 Below low normal [facility] (Jon Elizondo MD) Laboratory test finding (navigational concept) 30.8 % 4 1.0-51.0 Below low normal [facility] (Jno Elizondo MD) Laboratory test finding (navigational concept) 99.4 fL 8 0.0-94.0 Above high normal [facility] (Jon Elizondo MD) Laboratory test finding (navigational concept) 31.3 pg 27.0-34.0 [facility] (Jon Elizondo MD) Laboratory test finding (navigational concept) 17.3 % 1 1.5-14.8 Above high normal [facility] (Jon Elizondo MD) Laboratory test finding (navigational concept) 31.5 g/dL 31.0-36.0 [facility] (Jon Elizondo MD) Laboratory test finding (navigational concept) 154 10^3/uL 150-450 [facility] (Jon Elizondo MD) Laboratory test finding (navigational concept) 11.8 fL 7 .4-10.4 Above high normal [facility] (Jon Elizondo MD) Laboratory test finding (navigational concept) 78.3 % 37.0-80.0 [facility] (Jon Elizondo MD) Laboratory test finding (navigational concept) 9.0 % 25.0-40 .0 Below low normal [facility] (Jon Elizondo MD) Laboratory test finding (navigational concept) 8.5 % 3.0-8.0 Above high normal [facility] (Jon Elizondo MD) Laboratory test finding (navigational concept) 3.8 % 0.0-7.0 [facility] (Jon Elizondo MD) Laboratory test finding (navigational concept) 0.2 % 0.0-2.0 [facility] (Jon Elizondo MD) Laboratory test finding (navigational concept) 0.2 % 0.0-0.0 Above high normal [facility] (Jon Elizondo MD) Laboratory test finding (navigational concept) 0.0 % 0.0-0.0 [facility] (Jon Elizondo MD) Laboratory test finding (navigational concept) 4.51 10^3/uL 2.00-6.90 [facility] (Jon Elizondo MD) Laboratory test finding (navigational concept) 0.52 10^3/uL 0 .60-3.40 Below low normal [facility] (Jon Elizondo MD) Laboratory test finding (navigational concept) 0.49 10^3/uL 0.00-0.90 [facility] (Jon Elizondo MD) Laboratory test finding (navigational concept) 0.01 10^3/uL 0.00-0.20 [facility] (Jon Elizondo MD) Laboratory test finding (navigational concept) 0.22 10^3/uL 0.00-0.70 [facility] (Jon Elizondo MD) Laboratory test finding (navigational concept) 0.01 10^3/uL 0.00-0.10 [facility] (Jon Elizondo MD) Laboratory test finding (navigational concept) 0.00 10^3/uL 0.00-0.00 [facility] (Jon Elizondo MD) Laboratory test finding (navigational concept) Laboratory test result [facility] (Jon Elizondo MD) Laboratory test finding (navigational concept) Laboratory test result [facility] (Jon Elizondo MD) ID Date Data Source [id number] 01/23/2021 07:19:00 AM EDT [facility] Name Value Range Interpretation Code Description Data Tavo rce(s) Supporting Document(s) COMPREHENSIVE METABOLIC PANEL [facility] COMPREHENSIVE METABOLIC PANEL Sodium [Moles/volume] in Serum or Plasma 139 mEq/L 134 - 153 [facility] Potassium [Moles/volume] in Serum or Plasma 4.7 mEq/L 3.6 - 5.0 [facility] Chloride [Moles/volume] in Serum or Plasma 104 mEq/L 98 - 107 [facility] Carbon dioxide, total [Moles/volume] in Serum or Plasma 23 MEQ/L 22 - 30 [facility] Glucose [Mass/volume] in Serum or Plasma 95 MG/DL 70 - 99 [facility] BUN 39 MG/DL 7 - 21 [facility] Creatinine [Mass/volume] in Serum or Plasma 1.8 MG/DL 0.7 - 1.5 [facility] BUN/CREAT 22 8 - 27 [facility] Protein [Mass/volume] in Serum or Plasma 6.2 G/DL 6.3 - 8.2 L [facility] Albumin [Mass/volume] in Serum or Plasma 4.2 G/DL 3.9 - 5.0 [facility] Globulin [Mass/volume] in Serum by calculation 2.0 GM/DL 2.4 - 3.2 L [facility] A/G RATIO 2.1 0.8 - 2.0 [facility] Calcium [Mass/volume] in Serum or Plasma 9.4 MG/DL 8.4 - 10.2 [facility] Bilirubin.total [Mass/volume] in Serum or Plasma 0.7 MG/DL 0.2 - 1.3 [facility] Alkaline phosphatase [Enzymatic activity/volume] in Serum or Plasma 289 U/L 38 - 126 [facility] Aspartate aminotransferase [Enzymatic activity/volume] in Serum or Plasma 15 U/L 5 - 40 [facility] Alanine aminotransferase [Enzymatic activity/volume] in Seru m or Plasma 12 U/L 7 - 56 [facility] Anion gap 3 in Serum or Plasma 12.0 mmol/L 8.0 - 16.0 [facility] AGE 65 yrs [facility] NON-AA GFR 41 mL/min [facility] AFR AMER GFR 49 mL/min [facility] Male GFR In terprentation 20-49 yrs >60 mL/min Normal 50-59 yrs >56 mL/min Normal 60-69 yrs >49 mL/min Normal 70-79yrs >42 mL/min Normal 80 and above >35 mL/min Normal Female GFR Interpretation 20-39 yrs >60 mL/min Normal 40-49 yrs >58 mL/min Normal 50-59 yrs >51 mL/min Normal 60-69 yrs >45 mL/min Normal 70-79 yrs >39 mL/min Normal 80 and above >32 mL/min Normal ID Date Data Source [id number] 01/23/2021 07:12:00 AM T [facility] Name Value Range Interpretation Code Description Data Tavo rce(s) Supporting Document(s) Magnesium [Mass/volume] in Serum or Plasma 1.8 MG/DL 1.7 - 2.2 [facility] ID Date Data Source [id number] 01/23/2021 07:08:00 AM T [facility] Name Value Range Interpretation Code Description Data Tavo rce(s) Supporting Document(s) CBC W/AUTOMATED DIFF [facility] COMPLETE BLOOD COUNT Leukocytes [#/volume] in Blood by Automated count 5.8 10^3/uL 4.2 - 1 1.0 [facility] Erythrocytes [#/volume] in Blood by Automated count 3.10 10^6/uL 4. 50 - 6.30 L [facility] Hemoglobin [Mass/volume] in Blood 9.7 g/dL 14.0 - 16.0 L [facility] Hematocrit [Volume Fraction] of Blood by Automated count 30.8 % 4 1.0 - 51.0 L [facility] Erythrocyte mean corpuscular volume [Entitic volume] by Auto mated count 99.4 fL 80.0 - 94.0 H [facility] Erythrocyte mean corpuscular hemoglobin [Entitic mass] by Automated count 31.3 pg 27.0 - 34.0 [facility] Erythrocyte mean corpuscular hemoglobin concentration [Mass/volume] by Automated count 31.5 g/dL 31.0 - 36.0 [facility] Erythrocyte distribution width [Ratio] by Automated count 17.3 % 11.5 - 14.8 H [facility] Platelets [#/volume] in Blood by Automated count 154 10^3/uL 150 - 45 0 [facility] Platelet mean volume [Entitic volume] in Blood by Automated count 11.8 fL 7.4 - 10.4 H [facility] Neutrophils/100 leukocytes in Blood by Automated count 78.3 % 37. 0 - 80.0 [facility] Lymphocytes/100 leukocytes in Blood by Manual count 9.0 % 25.0 - 40.0 L [facility] Monocytes/100 leukocytes in Blood by Automated count 8.5 % 3.0 - 8.0 H [facility] Eosinophils/100 leukocytes in Blood by Automated count 3.8 % 0.0 - 7.0 [facility] Basophils/100 leukocytes in Blood by Automated count 0.2 % 0.0 - 2.0 [facility] %IG 0.2 % 0.0 - 0.0 [facility] %NRBC 0.0 % 0.0 - 0.0 [facility] al Neutrophils [#/volume] in Blood by Automated count 4.51 10^3/uL 2.00 - 6.90 [facility] Lymphocytes [#/volume] in Blood by Automated count 0.52 10^3/uL 0.60 - 3.40 L [facility] Monocytes [#/volume] in Blood by Automated count 0.49 10^3/uL 0.00 - 0.90 [facility] Eosinophils [#/volume] in Blood by Automated count 0.22 10^3/uL 0.00 - 0.70 [facility] Basophils [#/volume] in Blood by Automated count 0.01 10^3/uL 0.00 - 0.20 [facility] #IG 0.01 10^3/uL 0.00 - 0.10 [facility] #NRBC 0.00 10^3/uL 0.00 - 0.00 [facility] ospital MANUAL DIFF NOT INDICATED [facility] RBC MORPH NOT INDICATED [facility] spital ID Date Data Source [id number] 01/22/2021 02:18:00 PM EDT [facility] [address] [address] PHONE: [phone] FAX: [phone] Name .................. : FERNIE Charlton Acct Number.................. : [id number] ROOM. ................. : 108-1 MR Number ................... : [id number] Stay type ............. : I/P Discharge Date......... ... : Admit Date ......... : 01/22/21 Admit Phys .................... : CARO WILMA Date of ....... : 1955 Family Phys ................... : CARO WILMA Phone .................. : [phone] Age ................................ : 65 Film# .................. .:[id number] Sex ................................. : M Unsigned transcriptions are preliminary reports and do not represent a medical or legal document CT ABD & PELV W/[place] W/[place] [id number] COMPLETE:01/22/21 10:42 [id number] Reason for Exam: Kidney Stones CT ABDOMEN AND PELVIS WITHOUT IV CONTRAST INDICATION: Kidney stones COMPARISON: 12/17/2020 IV CONTRAST: None One or more of the following dose reduction techniques were utilized in effectively lowering the radiation dose for this examination: Automated Exposure Control, Adjustment of the mA and/or kV according to patient size, or Iterative reconstruction. FINDINGS: LUNG BASES: Moderate right pleural effusion and small left pleural effusion. Compressive atelectasis in both lower lobes right greater than left. Unchanged calcified granuloma left lower lobe. LIVER/BILIARY: The liver is unremarkable. 7 mm stone in the gallbladder unchanged. Bile ducts are not dilated. No stones in the bile ducts. SPLEEN: Normal. PANCREAS: Normal. ADRENALS: Normal bilaterally. RIGHT KIDNEY: No hydronephrosis, stones or masses. Multiple calcifications in the kidney. Most likely arterial calcification rather than stones. LEFT KIDNEY: No hydronephrosis, stones or masses. Multiple calcifications in the kidney. Most likely arterial calcification rather than stones. Page 1 of 3 [facility] [address] [place] [address] PHONE: [phone] FAX: [phone] Name .................. : FERNIE Charlton Acct Number.................. : [id number] ROOM. ................. : 108-1 Number ................... : [id number] Stay type ............. : I/P Discharge Date......... ... : Admit Date ......... : 01/22/21 Admit Phys .................... : CARO WILMA Date of ....... : 1955 Family Phys ................... : CARO WILMA Phone .................. : [phone] Age ................................ : 65 Film# .................. .:[id number] Sex ................................. : M Unsigned transcriptions are preliminary reports and do not represent a medical or legal document CT ABD & PELV W/[place] W/[place] [id number] COMPLETE:01/22/21 10:42 [id number] Reason for Exam: Kidney Stones OTHER : No abnormalities seen in the urinary bladder. No significant abnormalities seen in the reproductive organs. BOWEL/GI: No dilated bowel or obstruction. Scattered diverticula in the descen ding colon and sigmoid colon. No bowel wall thickening. No hernia. PERITONEUM: Moderate amount of ascites unchanged. No focal fluid collection or abscess. No free air. NODES: No enlarged lymph nodes. RETROPERITONEUM: No retroperitoneal masses. No aortic aneurysm. Extensive aortic and iliac calcification. SKELETAL: Laminectomy and fusion at L3-S1. Unchanged. Moderate diffuse body wall edema. IMPRESSION: 1. Bilateral pleural effusions and lower lobe atelectasis, right greater than left unchanged. 2. Gallstone unchanged. 3. Bilateral renal calcifications. This looks like arterial calcification rather than kidney stones. No hydronephrosis. 4. Moderate ascites unchanged. 5. Diverticulosis. No diverticulitis. Electronically Reviewed and Signed By Jose Norris MD , 01/22/21 14:18, JWS Page 2 of 3 [place] [address] PHONE: [phone] FAX: [phone] Name .................. : FERNIE Charlton Acct Number.................. : [id number] ROOM. ................. : 108-1 Number ................... : [id number] Stay type ............. : I/P Discharge Date......... ... : Admit Date ......... : 01/22/21 Admit Phys ......... ........... : CARO WILMA Date of ....... : 1955 Family Phys ................... : CARO WILMA Phone .................. : [phone] Age ................................ : 65 Film# .................. .:[id number] Sex ................................. : M Unsigned transcriptions are preliminary reports and do not represent a medical or legal document CT ABD & PELV W/O ORAL W/[place] [id number] COMPLETE:01/22/21 10:42 [id number] Reason for Exam: Kidney Stones Transcribe Initials: SSR, Transcribe Date: 01/22/21 14:11, Dictation Date: Copy for: [facility] Copy for: [address] [facility] Page 3 of 3 Name Value Range Interpretation Code Description Data Tavo rce(s) Supporting Document(s) ID Date Data Source [id number] 01/22/2021 10:55:00 [place] [address] PHONE: [phone] FAX: [phone] Name .................. : FERNIE Charlton Acct Number.................. : [id number] ROOM. ................. : 108-1 Number ................... : [id number] Stay type ............. : O/P Discharge Date......... ... : Admit Date ......... : 01/20/21 Admit Phys .................... : CARO WILMA Date of ....... : 1955 Family Phys ................... : CARO WILMA Phone .................. : [phone] Age ................................ : 65 Film# .................. .:[id number] Sex ................................. : M Unsigned transcriptions are preliminary reports and do not represent a medical or legal document CT THORAX W/O CONTRAST [id number] COMPLETE:01/21/21 19:08 CHRISTINE [id number] Reason for Exam: CHF CT CHEST WITHOUT IV CONTRAST INDICATION: Congestive heart failure COMPARISON: 01/03/2021 CT chest, 01/20/2021 chest x-ray CONTRAST: None One or more of the following dose reduction techniques were utilized in effectively lowering the radiation dose for this examination: Automated Exposure Control, Adjustment of the mA and/or kV according to patient size, or Iterative reconstruction. FINDINGS: LUNGS: Mild to moderate dependent atelectasis in both lungs. Several calcified granulomata are seen in the right lung measuring up to 4 mm PLEURA AND PERICARDIUM: Moderate right pleural effusion. Small left pleural effusion. MEDIASTINUM AND OLE: The heart is moderately enlarged. Extensive coronary arterial calcification. Pacerdefibrillator is present. Prosthetic mitral valve. Multiple sternal wires and mediastinal clips. Extensive aortic and arterial calcification. CHEST WALL: No axillary adenopathy. SKELETAL: No fracture or bone lesion. Mild to moderate degenerative disc disease mid and lower thoracic s pine. UPPER ABDOMEN: Ascites is seen around the liver and the spleen. Extensive calcification of the aorta and other arteries. Page 1 of 2 [facility] [address] [place] [address] PHONE: [phone] FAX: [phone] Name .................. : FERNIE Charlton Acct Number.................. : [id number] ROOM. ................. : 108 MR Number ................... : [id number] Stay type ............. : O/P Discharge Date......... ... : Admit Date ......... : 01/20/21 Admit Phys .................... : CARO WILMA Date of ....... : 1955 Family Phys ................... : CARO WILMA Phone .................. : [phone] Age ................................ : 65 Film# .................. .:[id number] Sex ................................. : M Unsigned transcriptions are preliminary reports and do not represent a medical or legal document CT THORAX W/O CONTRAST [id number] COMPLETE:01/21/21 19:08 CHRISTINE [id number] Reason for Exam: CHF IMPRESSION: 1. Moderate right pleural effusion and small left pleural effusion with bilateral lower lobe dependent atelectasis. Similar findings were seen on the previous exam. 2. Cardiomegaly. 3. Ascites. Similar findings seen on previous exam. Preliminary report for this exam was provided by Emily . Electronically Reviewed and Signed By Jose Norris MD , 01/22/21 10:55, DIANNE Transcribe Initials: SSR, Transcribe Date: 01/22/21 10:35, Dictation Date: Copy for: [facility] via modem Copy for: [facility] via modem Copy for: 710 [facility] Page 2 of 2 Name Value Range Interpretation Code Description Data Tavo rce(s) Supporting Document(s) ID Date Data Source [id number] 01/22/2021 06:11:00 AM EDT [facility] (Jon Elizondo MD) Name Value Range Interpretation Code Description Data Tavo rce(s) Supporting Document(s) Troponin T.cardiac [Mass/volume] in Serum or Plasma 0.04 ng/mL 0.00-0 .10 [facility] (Jon Elizondo MD) TROPONIN T 0.1 ng/ml Recommended as the clinical th reshold value for Troponin T. ID Date Data Source [id number] 01/22/2021 06:11:00 AM EDT [facility] (Jon Elizondo MD) Name Value Range Interpretation Code Description Data Tavo rce(s) Supporting Document(s) Laboratory test finding (navigational concept) Laboratory test result [facility] (Jon Elizondo MD) COMPREHENSIVE METABOLIC PANEL Laboratory test finding (navigational concept) 140 meq/L 134-153 [facility] (Jon Elizondo MD) Laboratory test finding (navigational concept) 4.6 meq/L 3.6-5.0 [facility] (Jon Elizondo MD) Laboratory test finding (navigational concept) 23 meq/L 22-30 [facility] (Jon Elizondo MD) Laboratory test finding (navigational concept) 93 mg/dL 70-99 [facility] (Jon Elizondo MD) Laboratory test finding (navigational concept) 106 meq/L 98-107 [facility] (Jon Elizondo MD) Laboratory test finding (navigational concept) 1.6 mg/dL 0 .7-1.5 Above high normal [facility] (Jon Elizondo MD) Laboratory test finding (navigational concept) 37 mg/dL 7-21 Above high normal [facility] (Jon Elizondo MD) Laboratory test finding (navigational concept) 23 8-27 [facility] (Jon Elizondo MD) Laboratory test finding (navigational concept) 6.3 g/dL 6.3-8.2 [facility] (Jon Elizondo MD) Laboratory test finding (navigational concept) 4.2 g/dL 3.9-5.0 [facility] (Jon Elizondo MD) Laboratory test finding (navigational concept) 2.0 0.8-2.0 [facility] (Jon Elizondo MD) Laboratory test finding (navigational concept) 2.1 GM/DL 2 .4-3.2 Below low normal [facility] (Jon Elizondo MD) Laboratory test finding (navigational concept) 0.7 mg/dL 0.2-1.3 [facility] (Jon Elizondo MD) Laboratory test finding (navigational concept) 9.4 mg/dL 8.4-10.2 [facility] (Jon Elizondo MD) Laboratory test finding (navigational concept) 16 U/L 5-40 [facility] (Jon Elizondo MD) Laboratory test finding (navigational concept) 256 U/L 38-126 Above high normal [facility] (Jon Elizondo MD) Laboratory test finding (navigational concept) 10 U/L 7-56 [facility] (Jon Elizondo MD) Laboratory test finding (navigational concept) 11.0 mmol/L 8.0-16.0 [facility] (Jon Elizondo MD) Laboratory test finding (navigational concept) 65 yrs [facility] (Jon Elizondo MD) Laboratory test finding (navigational concept) 56 mL/min [facility] (Jon Elizondo MD) Male GFR Interprentation 20-49 yrs >60 mL/min Normal 50-59 yrs >56 mL/min Normal 60-69 yrs >49 mL/min Normal 70-79yrs >42 mL/min Normal 80 and above >35 mL/min Normal Female GFR Interpretation 20-39 yrs >60 mL/min Normal 40-49 yrs >58 mL/min Normal 50-59 yrs >51 mL/min Normal 60-69 yrs >45 mL/min Normal 70-79 yrs >39 mL/min Normal 80 and above >32 mL/min Normal Laboratory test finding (navigational concept) 46 mL/min [facility] (Jon Elizondo MD) ID Date Data Source [id number] 01/22/2021 06:11:00 AM EDT [facility] (Jon Elizondo MD) Name Value Range Interpretation Code Description Data Tavo rce(s) Supporting Document(s) Natriuretic peptide.B prohormone N-Terminal [Mass/volu me] in Serum or Plasma 6385 pg/mL 0-125 Above high normal [facility] (Jon Elizondo MD) Magnesium [Mass/volume] in Serum or Plasma 1.8 mg/dL 1.7-2.2 [facility] (Jon Elizondo MD) ID Date Data Source [id number] 01/22/2021 06:11:00 AM EDT [facility] (Jon Elizondo MD) Name Value Range Interpretation Code Description Data Tavo rce(s) Supporting Document(s) Laboratory test finding (navigational concept) Laboratory test result [facility] (Jon Elizondo MD) COMPLETE BLOOD COUNT Laboratory test finding (navigational concept) 5.2 10^3/uL 4.2-11.0 [facility] (Jon Elizondo MD) Laboratory test finding (navigational concept) 3.10 10^6/uL 4 .50-6.30 Below low normal [facility] (Jon Elizondo MD) Laboratory test finding (navigational concept) 9.6 g/dL 1 4.0-16.0 Below low normal [facility] (Jon Elizondo MD) Laboratory test finding (navigational concept) 99.0 fL 8 0.0-94.0 Above high normal [facility] (Jon Elizondo MD) Laboratory test finding (navigational concept) 30.7 % 4 1.0-51.0 Below low normal [facility] (Jon Elizondo MD) Laboratory test finding (navigational concept) 31.0 pg 27.0-34.0 [facility] (Jon Elizondo MD) Laboratory test finding (navigational concept) 31.3 g/dL 31.0-36.0 [facility] (Jon Elizondo MD) Laboratory test finding (navigational concept) 17.4 % 1 1.5-14.8 Above high normal [facility] (Jon Elizondo MD) Laboratory test finding (navigational concept) 147 10^3/uL 1 50-450 Below low normal [facility] (Jon Elizondo MD) Laboratory test finding (navigational concept) 11.2 fL 7 .4-10.4 Above high normal [facility] (Jon Elizondo MD) Laboratory test finding (navigational concept) 73.6 % 37.0-80.0 [facility] (Jon Elizondo MD) Laboratory test finding (navigational concept) 13.0 % 2 5.0-40.0 Below low normal [facility] (Jon Elizondo MD) Laboratory test finding (navigational concept) 8.7 % 3.0-8.0 Above high normal [facility] (Jon Elizondo MD) Laboratory test finding (navigational concept) 3.9 % 0.0-7.0 [facility] (Jon Elizondo MD) Laboratory test finding (navigational concept) 0.4 % 0.0-2.0 [facility] (Jon Elizondo MD) Laboratory test finding (navigational concept) 0.4 % 0.0-0.0 Above high normal [facility] (Jon Elizondo MD) Laboratory test finding (navigational concept) 3.81 10^3/uL 2.00-6.90 [facility] (Jon Elizondo MD) Laboratory test finding (navigational concept) 0.0 % 0.0-0.0 [facility] (Jon Elizondo MD) Laboratory test finding (navigational concept) 0.67 10^3/uL 0.60-3.40 [facility] (Jon Elizondo MD) Laboratory test finding (navigational concept) 0.45 10^3/uL 0.00-0.90 [facility] (Jon Elizondo MD) Laboratory test finding (navigational concept) 0.02 10^3/uL 0.00-0.20 [facility] (Jon Elizondo MD) Laboratory test finding (navigational concept) 0.20 10^3/uL 0.00-0.70 [facility] (Jon Elizondo MD) Laboratory test finding (navigational concept) 0.00 10^3/uL 0.00-0.00 [facility] (Jon Elizondo MD) Laboratory test finding (navigational concept) 0.02 10^3/uL 0.00-0.10 [facility] (Jon Elizondo MD) Laboratory test finding (navigational concept) Laboratory test result [facility] (Jon Elizondo MD) Laboratory test finding (navigational concept) Laboratory test result [facility] (Jon Elizondo MD) ID Date Data Source [id number] 01/22/2021 07:58:00 AM EDT [facility] Name Value Range Interpretation Code Description Data Tavo rce(s) Supporting Document(s) TROPONIN T 0.04 NG/ML 0.00 - 0.10 [facility] TROPONIN T0.1 ng/ml Recommended as the c linical threshold value forTroponin T. ID Date Data Source [id number] 01/22/2021 07:32:00 AM EDT [facility] Name Value Range Interpretation Code Description Data Tavo rce(s) Supporting Document(s) COMPREHENSIVE METABOLIC PANEL [facility] COMPREHENSIVE METABOLIC PANEL Sodium [Moles/volume] in Serum or Plasma 140 mEq/L 134 - 153 [facility] Potassium [Moles/volume] in Serum or Plasma 4.6 mEq/L 3.6 - 5.0 [facility] Chloride [Moles/volume] in Serum or Plasma 106 mEq/L 98 - 107 [facility] Carbon dioxide, total [Moles/volume] in Serum or Plasma 23 MEQ/L 22 - 30 [facility] Glucose [Mass/volume] in Serum or Plasma 93 MG/DL 70 - 99 [facility] BUN 37 MG/DL 7 - 21 [facility] Creatinine [Mass/volume] in Serum or Plasma 1.6 MG/DL 0.7 - 1.5 H [facility] BUN/CREAT 23 8 - 27 [facility] al Protein [Mass/volume] in Serum or Plasma 6.3 G/DL 6.3 - 8.2 [facility] Albumin [Mass/volume] in Serum or Plasma 4.2 G/DL 3.9 - 5.0 [facility] Globulin [Mass/volume] in Serum by calculation 2.1 GM/DL 2.4 - 3.2 L [facility] A/G RATIO 2.0 0.8 - 2.0 [facility] al Calcium [Mass/volume] in Serum or Plasma 9.4 MG/DL 8.4 - 10.2 [facility] Bilirubin.total [Mass/volume] in Serum or Plasma 0.7 MG/DL 0.2 - 1.3 [facility] Alkaline phosphatase [Enzymatic activity/volume] in Serum or Plasma 256 U/L 38 - 126 H [facility] Aspartate aminotransferase [Enzymatic activity/volume] in Serum or Plasma 16 U/L 5 - 40 [facility] Alanine aminotransferase [Enzymatic activity/volume] in Seru m or Plasma 10 U/L 7 - 56 [facility] Anion gap 3 in Serum or Plasma 11.0 mmol/L 8.0 - 16.0 [facility] AGE 65 yrs [facility] al NON-AA GFR 46 mL/min [facility] nani AFR AMER GFR 56 mL/min [facility] Male GFR In terprentation 20-49 yrs >60 mL/min Normal 50-59 yrs >56 mL/min Normal 60-69 yrs >49 mL/min Normal 70-79yrs >42 mL/min Normal 80 and above >35 mL/min Normal Female GFR Interpretation 20-39 yrs >60 mL/min Normal 40-49 yrs >58 mL/min Normal 50-59 yrs >51 mL/min Normal 60-69 yrs >45 mL/min Normal 70-79 yrs >39 mL/min Normal 80 and above >32 mL/min Normal ID Date Data Source [id number] 01/22/2021 07:18:00 AM EDT [facility] Name Value Range Interpretation Code Description Data Tavo rce(s) Supporting Document(s) Magnesium [Mass/volume] in Serum or Plasma 1.8 MG/DL 1.7 - 2.2 [facility] ID Date Data Source [id number] 01/22/2021 07:14:00 AM EDT [facility] Name Value Range Interpretation Code Description Data Tavo rce(s) Supporting Document(s) BNP 6385 PG/ML 0 - 125 [facility] ID Date Data Source [id number] 01/22/2021 07:06:00 AM EDT [facility] Name Value Range Interpretation Code Description Data Tavo rce(s) Supporting Document(s) CBC W/AUTOMATED DIFF [facility] COMPLETE BLOOD COUNT Leukocytes [#/volume] in Blood by Automated count 5.2 10^3/uL 4.2 - 1 1.0 [facility] Erythrocytes [#/volume] in Blood by Automated count 3.10 10^6/uL 4. 50 - 6.30 L [facility] Hemoglobin [Mass/volume] in Blood 9.6 g/dL 14.0 - 16.0 L [facility] Hematocrit [Volume Fraction] of Blood by Automated count 30.7 % 4 1.0 - 51.0 L [facility] Erythrocyte mean corpuscular volume [Entitic volume] by Auto mated count 99.0 fL 80.0 - 94.0 H [facility] Erythrocyte mean corpuscular hemoglobin [Entitic mass] by Automated count 31.0 pg 27.0 - 34.0 [facility] Erythrocyte mean corpuscular hemoglobin concentration [Mass/volume] by Automated count 31.3 g/dL 31.0 - 36.0 [facility] Erythrocyte distribution width [Ratio] by Automated count 17.4 % 11.5 - 14.8 H [facility] Platelets [#/volume] in Blood by Automated count 147 10^3/uL 150 - 45 0 L [facility] Platelet mean volume [Entitic volume] in Blood by Automated count 11.2 fL 7.4 - 10.4 H [facility] Neutrophils/100 leukocytes in Blood by Automated count 73.6 % 37. 0 - 80.0 [facility] Lymphocytes/100 leukocytes in Blood by Manual count 13.0 % 25.0 - 40.0 L [facility] Monocytes/100 leukocytes in Blood by Automated count 8.7 % 3.0 - 8.0 H [facility] Eosinophils/100 leukocytes in Blood by Automated count 3.9 % 0.0 - 7.0 [facility] Basophils/100 leukocytes in Blood by Automated count 0.4 % 0.0 - 2.0 [facility] %IG 0.4 % 0.0 - 0.0 [facility] - [facility] Neut[facility]ils [#/volume] in Blood by Automated count 3.81 10^3/uL 2.00 - 6.90 [facility] Lymphocytes [#/volume] in Blood by Automated count 0.67 10^3/uL 0.60 - 3.40 [facility] Monocytes [#/volume] in Blood by Automated count 0.45 10^3/uL 0.00 - 0.90 [facility] Eosinophils [#/volume] in Blood by Automated count 0.20 10^3/uL 0.00 - 0.70 [facility] Basophils [#/volume] in Blood by Automated count 0.02 10^3/uL 0.00 - 0.20 [facility] #IG 0.02 10^3/uL 0.00 - 0.10 [facility] #NRBC 0.00 10^3/uL 0.00 - 0.00 [facility] MANUAL DIFF NOT INDICATED [facility] RBC MORPH NOT INDICATED [facility] spital ID Date Data Source [id number] 01/21/2021 10:56:00 [place] [address] RESPIRATORY CARE REPORT ==== ---------NAME------- NUMBER SEX AGE ADMIT DISC. XRAY# F/C TYPEMARTEL ADEBAYO Charlton [id number] M 65 01/20/21 [id number] MB4 O/P DATE OF : 1955 M/R# [id number] #: [id number] LOCATION: EMERGENCY DEPT EKG [id number] COMP LETE:01/21/21 11:23 CLC 41129 EKG 24867 COMPLETE:01/21/21 02:06 AJP 38025 EKG 72949 COMPLETE:01/21/21 07:55 CLC [id number] PHYSICIAN: CARO DILLON Name Value Range Interpretation Code Description Data Tavo rce(s) Supporting Document(s) ID Date Data Source [id number] 01/21/2021 10:05:00 PM EDT [facility] (Jon Elizondo MD) Name Value Range Interpretation Code Description Data Tavo rce(s) Supporting Document(s) Troponin T.cardiac [Mass/volume] in Serum or Plasma 0.05 ng/mL 0.00-0 .10 [facility] (Jon Elizondo MD) TROPONIN T 0.1 ng/ml Recommended as the clinical th reshold value for Troponin T. ID Date Data Source [id number] 01/21/2021 10:53:00 PM EDT [facility] Name Value Range Interpretation Code Description Data Tavo rce(s) Supporting Document(s) TROPONIN T 0.05 NG/ML 0.00 - 0.10 [facility] TROPONIN T0.1 ng/ml Recommended as the c linical threshold value forTroponin T. ID Date Data Source [id number] 01/21/2021 04:02:00 PM EDT [facility] (Jon Elizondo MD) Name Value Range Interpretation Code Description Data Tavo rce(s) Supporting Document(s) Troponin T.cardiac [Mass/volume] in Serum or Plasma 0.05 ng/mL 0.00-0 .10 [facility] (Jon Elizondo MD) TROPONIN T 0.1 ng/ml Recommended as the clinical th reshold value for Troponin T. ID Date Data Source [id number] 01/21/2021 04:27:00 PM EDT [facility] Name Value Range Interpretation Code Description Data Tavo rce(s) Supporting Document(s) TROPONIN T 0.05 NG/ML 0.00 - 0.10 [facility] TROPONIN T0.1 ng/ml Recommended as the c linical threshold value forTroponin T. ID Date Data Source [id number] 01/21/2021 09:55:00 AM EDT [facility] (Jon Elizondo MD) Name Value Range Interpretation Code Description Data Tavo rce(s) Supporting Document(s) Troponin T.cardiac [Mass/volume] in Serum or Plasma 0.06 ng/mL 0.00-0 .10 [facility] (Jon Elizondo MD) TROPONIN T 0.1 ng/ml Recommended as the clinical th reshold value for Troponin T. ID Date Data Source [id number] 01/21/2021 10:41:00 AM EDT [facility] Name Value Range Interpretation Code Description Data Tavo rce(s) Supporting Document(s) TROPONIN T 0.06 NG/ML 0.00 - 0.10 [facility] spital TROPONIN T0.1 ng/ml Recommended as the c linical threshold value forTroponin T. ID Date Data Source [id number] 01/20/2021 09:59:00 PM EDT [facility] 1 OrderSheet [facility] Emergency Department [address] [place] [address] Phone #: ext- [phone] 01/20/2021 21:52 Patient: ADEBAYO LIANG Sex: M : 1955 Age: 65yWEIGHT:87.9 kg (S) HEIGHT:69 inches (S) BMI:28.6ALLERGIES: TelticionCHIEF COMPLAINT: chest painDIAGNOSIS: Congestive heart failure, Preinfarction syndromeLAB ORDERSOrder Description Priority Entered Acknowledged InitialedCMP STAT 22:06 01/20/2021 22:09 Ihsan Up Jack ; Citlaly CovarrubiasBNP STAT 22:06 01/20/2021 22:09 Ihsan Up Jack ; Citlaly CovarrubiasCBC w Diff STAT 22:06 01/20/2021 22:09 Ihsan Up Jack ; Citlaly CovarrubiasTroponin-T STAT 22:06 01/20/2021 22:09 Ihsan Up Jack ; Citlaly CovarrubiasETOH STAT 22:30 01/20/2021 23:41 Ihsan Up Jack ; Citlaly CovarrubiasCOVID-19 CAH (Not STAT 23:41 01/20/2021 23:42 Jeovanny,Symptomatic as Wilfrid Champagne ; Citlaly CovarrubiasDefined by CDC)(01/20/2021) (NotFirst Test)(Hospitalized) (Not) (NotResident inCongregate CareSetting) (NotEmployed inHealthcare Setting)DIAGNOSTIC STUDY ORDERSOrder Description Priority Entered Acknowledged InitialedChest Portable 1 STAT 22:06 01/20/2021 22:09 Jeovanny,View Wilfrid Champagne ; Citlaly Covarrubias(Oxygen?(No)) Reason for Study: Chest PainMEDICATION/IV/DRIP/FLUID ORDERS 2 OrderSheet [facility] [address] [place] [address] Phone #: ext- [phone] 01/20/2021 21:52 Patient: ADEBAYO LIANG Sex: M : 1955 Age: 65yOrder Description Priority Entered Acknowledged InitialedGENERAL ORDERSOrder Description Priority Entered Acknowledged InitialedEKG 22:06 01/20/2021 22:09 Ihsan Up Jack ; Citlaly Covarrubias[Electronically signed by Citlaly Up R.N. (01/21/2021)][Electronically signed by Wilfrid Champagne (05:48 01/21/2021)][Electronically locked by Citlaly Up R.N. (01/21/2021)] Name Value Range Interpretation Code Description Data Tavo rce(s) Supporting Document(s) ID Date Data Source [id number] 01/20/2021 09:59:00 PM EDT [facility] 1 Medication Reconciliation Report [facility] Department [address] [place] [address] Phone #: ext- [phone] 01/20/2021 21:52 Patient: ADEBAYO LIANG Sex: M : 1955 Age: 65yWeight: 87.9 kgHeight/Length: 69 in.BMI: 28.6ALLERGIES: TelticionThe patient's Home Medications are listed below:THE FOLLOWING MEDICATIONS NEED TO BE RECONCILED: Allopurinol Oral (300 mg), daily Ascorbic Acid Oral (500 mg) 1 tablet, daily Aspirin Oral (81 mg) 1 tablet, daily Atorvastatin Calcium Oral (80 mg) 1 tablet, daily Daily Jodi Oral 1 tab , 2x a day Entresto Oral (49-51 mg) 1 tablet, 2x a day Ferrous Sulfate Iron Oral 324mg , 2x a day Fluticasone Propionate Nasal (93 mcg/act) 2 spray, daily Lasix Oral (40 mg), 2x a day Magnesium Oral (400 mg), daily Metoprolol Succinate ER Oral (25 mg) 1 tablet, daily Multi Vitamin Daily Oral Nitroglycerin Sublingual (0.4 mg), prn Omeprazole Oral 20 mg, daily Vitamin c Oral 2 Medication Reconciliation Report [facility] Department [address] [place] [address] Phone #: ext- [phone] 01/20/2021 21:52 Patient: ADEBAYO LIANG Sex: M : 1955 Age: 65yThe source(s) of the original Home Medication information:Not obtained.The following Medications were given to the patient in the Emergency Department:None.The following Medications were prescribed to the patient:None. Name Value Range Interpretation Code Description Data Tavo rce(s) Supporting Document(s) ID Date Data Source [id number] 01/20/2021 09:59:00 PM EDT [place] [address] Medication Administration Record [facility] [address] [place] [address] Phone #: ext- [phone] 01/20/2021 21:52 Patient: ADEBAYO LIANG Sex: M : 1955 Age: 65yWeight: 87.9 kgHeight/Length: 69 inBMI: 28.6ALLERGIES: TelticionDate/Time Medication Administered Medication Ordered Name Value Range Interpretation Code Description Data [facility](s) Supporting Document(s) ID Date Data Source [id number] 01/20/2021 09:59:00 PM EDT [place] [address] General Instructions [facility] [address] [place] [address] Phone #: ext- [phone] 01/20/2021 21:52 Patient: ADEBAYO LIANG Sex: M : 1955 Age: 65yAcute moderate systolic, left ventricular congestive heart failure.Unstable angina.(Electronically signed by Wilfrid Champagne 01/21/2021 05:48) Name Value Range Interpretation Code Description Data [facility](s) Supporting Document(s) ID Date Data Source [id number] 01/20/2021 09:59:00 PM EDT [place] [address] Clinical Report - Nurses [facility] Emergency Department [address] [place] [address] Phone #: ext- [phone] 01/20/2021 21:52 Patient: ADEBAYO LIANG Sex: M : 1955 Age: 65yTRIAGE Arrived by EMS. Historian: patient. Acuity: LEVEL 2. Chief Complaint: CHEST PAIN and LEFT ARM PAIN, RIGHT ARM PAIN and SHORTNESS OF BREATH. Alert. No acute distress. Onset. (45 minutes ago). ( Pt brought in by [facility] for chief complaint of midsternal chest pain that radiates down both arms and mild SOB. PT took 2 nitro prior to EMS arrival and was given aspirin en route to the ER. EMS reports on the way to the ER pt had short run of SVT and then converted to a paced rhythm. At time of triage, pt reports pain is resolved. PT was discharged from [facility] days ago and had a cardiac cath done during that stay. About 3 days after leaving the hospital he began having mo derate swelling in both legs.). 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 SEPSIS SCREEN: SIRS SCREEN NEGATIVE. SEPSIS SCREEN NEGATIVE. No suspected or confirmed signs of infection present. MADELINE COMA SCORE: 15- eyes open- spontaneous (4); best verbal response- oriented (5); best motor response- obeys commands (6). --22:03 01/20/21 Eunice Jhaveri R.N. 21:53 01/20/21. BP: 102/81. HR: 60. RR: 18. O2 saturation: 96%. Temp: 96.7 F. Pain level now 0/10. --22:03 01/20/21 Eunice Jhaveri R.N. Weight: 87.9 kg stated. Height/Length: 69 inches Per Patient. BMI: 28.6. --21:56 01/20/21 Eunice Jhaveri R.N. Medications Allopurinol Oral (Tablet 300 mg), daily. Atorvastatin Calcium Oral (Tablet 80 mg) 1 tablet, daily. Entresto Oral (Tablet 49-51 mg) 1 tablet, 2x a day. Ferrous Sulfate Iron Oral 324mg , 2x a day. Fluticasone Propionate Nasal (Exhaler Suspension 93 mcg/act) 2 spray, daily. Lasix Oral (Tablet 40 mg), 2x a day. Magnesium Oral (Capsule 400 mg), daily. --22:02 01/20/21 Eunice Jhaveri R.N. Metoprolol Succinate ER Oral (Tablet Extended Release 24 Hour 25 mg) 1 tablet, daily. Multi Vitamin Daily Oral. Nitroglycerin Sublingual (Tablet Sublingual 0.4 mg), as needed. 2 Clinical Report - Nurses [facility] [address] [place] [address] Phone #: ext- [phone] 01/20/2021 21:52 Patient: ADEBAYO LIANG Sex: M : 1955 Age: 65yVitamin c Oral. --22:02 01/20/21 Eunice Jhaveri R.N.Aspirin Oral (Tablet Chewable 81 mg) 1 tablet, daily. --00:47 01/21/21 Jaquan Moreno R.N.Ascorbic Acid Oral (Tablet 500 mg) 1 tablet, daily. --00:48 01/21/21 Jaquan Moreno R.N.Daily Jodi Oral 1 tab , 2x a day. --00:48 01/21/21 Jaquan Moreno R.N.Om eprazole Oral 20 mg, daily. --00:49 01/21/21 Jaquan Moreno R.N.The following entry was struck by Jaquan Moreno R.N., 00:49 (01/21/21) Reason - other.PriLOSEC Oral (Packet 10 mg) 2 packets, daily. --22:02 01/20/21 Eunice Jhaveri R.N.The following entry was struck by Jaquan Moreno R.N., 00:49 (01/21/21) Reason - other.Loratadine Childrens Oral 10mg, daily. --22:02 01/20/21 Eunice Jhaveri R.N.The following entry was struck by Jaquan Moreno R.N., 00:49 (01/21/21) Reason - other.Levothyroxine Sodium Oral (Tablet 75 mcg), daily. --22:02 01/20/21 Eunice Jhaveri R.N.The following entry was struck by Jaquan Moreno R.N., 00:47 (01/21/21) Reason - wrong value.Aspirin Oral (Tablet 325 mg), daily. --22:02 01/20/21 Eunice Jhaveri R.N. .AllergiesTelticion.(hives) (cholesterol med) --22:02 01/20/21 Eunice Jhaveri R.N.PROBLEMS:Gout.Asthma.COPD - Chronic Obstructive Pulmonary Disease.Congestive Heart Failure.Pneumonia.Pleural Effusion.Hypercholesterolemia.Hypertension.Hypoxia.Hypothyroidism. --22:03 01/20/21 Eunice Jhaveri R.N.ADDITIONAL SURGERIES:Cardiac Catheterization.R groin femoral artery cleaned out.. --22:03 01/20/21 Eunice Jhaveri R.N.HistoryPAST MEDICAL HX: Immunizations: up-to-date.SOCIAL HX: Light tobacco smoker- less than 1/2 a pack per day. Occasional alcohol use. No drug use.The patient was offered HIV testing but declined and hepatitis C testing but declined. The patient has nottraveled outside the [place]Infectious disease exposure: The patient was not exposed to C-diff, MRSA, VRE, CRE or Coronavirus.SELF HARM ASSESSMENT: Self harm assessment was performed. The patient answered "no" to thequestion(s) "Have you recently felt down, depressed, or hopeless?", "Do you have thoughts of harming orkilling yourself?", "Do you have a plan for harming or killing yourself?", "Have you recently had thoughts 3 Clinical Report - Nurses [facility] Department [address] [place] [address] Phone #: ext- [phone] 01/20/2021 21:52 [id number] Sex: [facility] : 1955 Age: 65y about harming or killing others?", "Do you have any dangerous items in your possession?", "Have you noticed less interest or pleasure in doing things?", "Are you here because you tried to hurt yourself?" and "Have you ever tried to hurt yourself before today?". ABUSE ASSESSMENT: No report of abuse. NUTRITIONAL RISK ASSESSMENT: The nutritional risk assessment revealed no deficiencies. FUNCTIONAL ASSESSMENT: Functional assessment: no impairments noted. LEARNING NEEDS ASSESSMENT: The learning needs assessment revealed no barriers. FALL RISK ASSESSMENT: Fall risk assessment completed. No risk factors identified. SKIN INTEGRITY ASSESSMENT: Skin integrity risk assessment completed. No skin integrity risk identified. --22:01/20/21 Eunice Jhaveri R.N. FAMILY HX: Mother: Coronary Artery Disease. --22:17 01/20/21 Wilfrid Champagne. Interventions Identification band on patient. To treatment room. No allergy band on patient. --22:01/20/21 Eunice Jhaveri R.N.PHYSICAL ASSESSMENT GENERAL / NEURO / PSYCH: Alert. Oriented X 4. Appears in no acute distress. HEENT: Mucous membranes are pink. RESPIRATORY: Respirations not labored. Breath sounds within normal limits. CVS: Cardiac rhythm: paced rhythm. EXTREMITIES: Bilateral 1+ pitting edema of the lower extremities involving both feet, both ankles and both lower legs. SKIN: Skin is warm and dry. --22:01/20/21 Citlaly Up R.N.NURSING PROGRESS NOTES Cardiac rhythm: paced rhythm. The plan of care for this patient has been created. equipment monitor phototypesetting, NIBP monitor and pulse oximeter placed on patient; monitor alarms on. Patient gowned. Head of bed elevated. Reassurance given. Call light placed in reach. Side rails up. Bed placed in lowest position. Brakes of bed on. --22:01/20/21 Citlaly Up R.N. 22:08 01/20/21. BP: 102/81. MAP: 88. HR: 60. RR: 17. O2 saturation: 98% on room air. --22:01/20/21 Citlaly Up R.N. EKG time: (22:05 01/20/2021). EKG was performed by a nurse and shown to the ED physician. --22:01/20/21 Citllay Up R.N. 4 Clinical Report - Nurses [facility] [address] [place] [address] Phone #: ext- [phone] 01/20/2021 21:52 Patient: ADEBAYO LIANG Sex: M : 1955 Age: 65y22:10 01/20/2021 Site #1 started via IV in the right antecubital space with an 20g angiocath, with aseptictechnique and good blood return; one attempt. Blood drawn: rainbow set. Labeled in the presence of thepatient and sent to the lab. Saline lock flushed with 5 mL saline. --22:01/20/21 Citlaly Up R.N.22:27 01/20/21. BP: 82/49. MAP: 60. HR: 60. RR: 17. O2 saturation: 100%. O2 started via nasalcannula at 2 liters/minute. --22:32 01/20/21 Citlaly Up R.N.Cardiac rhythm: atrial pacing and ventricular pacing.RESPIRATORY: No respiratory distress.CVS: Cardiac rhythm: atrial pacing and ventricular paci ng.SKIN: Skin is warm and dry. Skin color within normal limits. --22:34 01/20/21 Citlaly Up R.N.22:17 01/20/21. BP: 75/51. MAP: 59. HR: 60. RR: 17. O2 saturation: 99% at 1 liters/minute. O2 startedvia nasal cannula. --22:34 01/20/21 Citlaly Up R.N.The patient reports no complaints and he is resting quietly.GENERAL / NEURO / PSYCH: Denies anxiety.HEENT: Denies headache.RESPIRATORY: Denies difficulty breathing.CVS: Denies chest pain. Cardiac rhythm: atrial pacing and ventricular pacing.GI / : Denies nausea. --23:02 01/20/21 Citlaly Up R.N.23:01 01/20/21. BP: 84/58. MAP: 66. HR: 60. RR: 15. O2 saturation: 99% on room air. Pain level now:0/10. --23:02 01/20/21 Citlaly Up R.N.GENERAL / NEURO / PSYCH: Denies anxiety.HEENT: Denies headache.RESPIRATORY: Denies difficulty breathing. No respiratory distress.CVS: Denies chest pain. Cardiac rhythm: atrial pacing and ventricular pacing.GI / : Denies nausea.SKIN: Skin is warm and dry. Skin color within normal limits. --23:32 01/20/21 Citlaly Up R.N.23:31 01/20/21. BP: 96/60. MAP: 72. HR: 61. RR: 16. O2 saturation: 99% at 2 liters/minute. Pain levelnow: 0/10. --23:32 01/20/21 Citlaly Up R.N.Patient waiting for lab results. --23:32 01/20/21 Citlaly Up R.N.23:46 01/20/21. BP: 91/5. MAP: 33. HR: 60. RR: 16. O2 saturation: 100% on nasal cannula at 2liters/minute. --23:47 01/20/21 Citlaly Up R.N.The patient reports no complaints and he is calm. Overall patient status is improved.GENERAL / NEURO / PSYCH: Denies anxiety.HEENT: Denies headache.RESPIRATORY: Denies difficulty breathing. No respiratory distress. Breath sounds normal. 5 Clinical Report - Nurses [facility] [address] [place] [address] Phone #: ext- [phone] 01/20/2021 21:52 Patient: ADEABYO LIANG Sex: M : 1955 Age: 65y CVS: Denies chest pain. Cardiac rhythm: atrial pacing and ventricular pacing. GI / : Denies nausea. SKIN: Skin is warm and dry. Skin color within normal limits. --23:47 01/20/21 Citlaly Up R.N. The patient reports no complaints and he is resting quietly. GENERAL / NEURO / PSYCH: Denies anxiety. HEENT: Denies headache. RESPIRATORY: Denies difficulty breathing. No respiratory distress. CVS: Denies chest pain. Cardiac rhythm: atrial pacing. GI / : Denies nausea. SKIN: Skin is warm and dry. Skin color within normal limits. --00:22 01/21/21 Citlaly Up R.N. 00:21 01/21/21. BP: 91/62. MAP: 71. HR: 60. RR: 15. O2 saturation: 99% on nasal cannula at 2 liters/minute. Pain level now: 0/10. --00:22 01/21/21 Citlaly Up R.N. 00:54 01/21/21. BP: 96/61. MAP: 72. HR: 60. RR: 17. O2 saturation: 100% on nasal cannula at 2 liters/minute. Pain level now: 0/10. --00:55 01/21/21 Citlaly Up R.N. The patient reports no complaints and he is resting quietly. GENERAL / NEURO / PSYCH: Denies anxiety. HEENT: Denies headache. RESPIRATORY: Denies difficulty breathing. No respiratory distress. Breath sounds normal. CVS: Denies chest pain. Cardiac rhythm: atrial pacing. GI / : Denies nausea. SKIN: Skin is warm and dry. --00:55 01/21/21 Citlaly Up R.N.DISPOSITION / DISCHARGE Report was given to a nurse via a phone call. Report included information regarding patient's care and condition, current vital signs and abnormal labs. All questions were answered. Report was acknowledged and care was transferred. (JUAN CARLOS RN). Patient's personal items; items were placed in belongings bag and transported with the patient. --01:13 01/21/21 Citlaly Up R.N. 01:11 01/21/21. BP: 97/62. MAP: 73. HR: 60. RR: 16. O2 saturation: 98% at 2 liters/minute. O2 started via nasal cannula. Temp: 98.7 F (temporal). Pain level now: 0/10. --01:13 01/21/21 Citlaly Up R.N.Locked/Released at 01/21/2021 01:27 by Citlaly Up R.N. Name Value Range Interpretation Code Description Data Tavo rce(s) Supporting Document(s) ID Date Data Source [id number] 01/20/2021 09:59:00 PM EDT [facility] 1 Clinical Report - Physicians/Mid Levels [facility] Department [address] [place] [address] Phone #: ext- [phone] 01/20/2021 21:52 Patient: ADEBAYO LIANG Sex: M : 1955 Age: 65y Time Seen: 22:02 01/20/2021. Arrived- By private vehicle. Historian- patient. Disposition decision: 23:53 01/20/2021.HISTORY OF PRESENT ILLNESS Chief Complaint: CHEST PAIN. It is described as sharp and it is described as located in the central chest area and left shoulder and arm and radiating to the left arm. This started just prior to arrival and is now gone. It was abrupt in onset and has been constant. At its maximum, severity described as moderate. When seen in the E.D., it was gone. No nausea, vomiting, difficulty breathing or diaphoresis. (Also admits his legs are now swollen again since discharge from hospital). (Noted sharp chest pain and some pain going down arm. More on left arm. No vomiting. Took two nitroglycerin. Cath done at [facility] two weeks ago. CABG in 1999 with redo in 2012.). Similar symptoms previously. Recent medical care: The patient was seen recently in the emergency department and hospitalized.REVIEW OF SYSTEMSNo fever, cough, pedal edema, calf pain or fainting episodes. No headache, sore throat, abdominal pain,black stools or skin rash. No enlarged lymph nodes, joint pain or bloody stools. All other systemsreviewed and are negative.PAST HISTORYSee nurses notes. Heart disease. Coronary artery disease. Problems: CVA - Cerebrovascular Accident. PVD. Sleep Apnea. Gout. COPD - Chronic Obstructive Pulmonary Disease. Congestive Heart Failure. Pleural Effusion. Hypertension. Hypothyroidism. Additional Surgeries: "Watchman" filter placed Feb 2018, Stopped xarelto. Back Surgery. CABG x2. (1999 2012) Cardiac Catheterization. 2 Clinical Report - Physicians/Mid Levels [facility] [address] [place] [address] Phone #: ext- [phone] 01/20/2021 21:52 ----- Patient: ADEBAYO LIANG Sex: M : 1955 Age: 65y Cardiac stents. Cardiac Surgery. Cataract Surgery. Deviated septum. Pacemaker. Medications: Metoprolol Succinate ER Oral (Tablet Extended Release 24 Hour 25 mg) 1 tablet, daily. Multi Vitamin Daily Oral. Nitroglycerin Sublingual (Tablet Sublingual 0.4 mg), as needed. PriLOSEC Oral (Packet 10 mg) 2 packets, daily. Vitamin c Oral. Allopurinol Oral (Tablet 300 mg), daily. Aspirin Oral (Tablet 325 mg), daily. Atorvastatin Calcium Oral (Tablet 80 mg) 1 tablet, daily. Entresto Oral (Tablet 49-51 mg) 1 tablet, 2x a day. Ferrous Sulfate Iron Oral 324mg , 2x a day. Fluticasone Propionate Nasal (Exhaler Suspension 93 mcg/act) 2 spray, daily. Lasix Oral (Tablet 40 mg), 2x a day. Levothyroxine Sodium Oral (Tablet 75 mcg), daily. Loratadine Childrens Oral 10mg, daily. Magnesium Oral (Capsule 400 mg), daily. Allergies: Telticion.(hives) (cholesterol med).SOCIAL HISTORYCurrent every day light tobacco smoker.FAMILY HISTORYMother: Coronary Artery Disease.ADDITIONAL NOTESThe nursing notes have been reviewed.PHYSICAL EXAMVital Signs: 01/20/2021 21:53 BP: 102/81. MAP: 88. HR: 60. RR: 18. O2 saturation: 96%. Temp: 96.7 F.Appearance: Alert. Oriented X3. No acute distress.Eyes: Pupils equal, round and reactive to light.ENT: Ears normal. Pharynx normal.Neck: Normal inspection. Neck supple.CVS: Normal heart rate and rhythm. Heart sounds normal.Respiratory: No respiratory distress. Breath sounds normal. Chest nontender.Abdomen: Soft and nontender. No organomegaly.Skin: Skin warm and dry. Normal skin color. No rash. Normal skin turgor. 3 Clinical Report - Physicians/Mid Levels [facility] [address] [place] [address] Phone #: ext- [phone] 01/20/2021 21:52 [id number] Sex[facility] M : 1955 Age: 65y Extremities: Bilateral moderate 2+ pitting edema of the lower extremities involving both feet, both ankles and both lower legs. Extremities exhibit normal ROM. Neuro: Oriented X 3. No motor deficit. No sensory deficit.LABS, X-RAYS, AND EKGEKG: EKG time: 21:51 01/20/2021. Rate: 60. Continuous paced rhythm. Wide QRS. EKG unchangedwhen compared with prior EKG. Interpretation time: 21:55 01/20/2021.Chest X-ray: Congestive heart failure present. Vascular congestion present. Cardiomegaly. Mediumleft pleural effusion present (left). Views: AP (portable). The X-rays were independently viewed by me.Laboratory Tests: COVID-19 CAH: (BRETT: 01/20/2021 23:39) ( MsgRcvd 01/21/2021 00:25) Final results Test Result Flag Units (Reference) COVID-19 NOT DETECTED COVID-19 REENTER NOT DETECTED PROCEDURAL CONTROL VALID KIT LOT # _[id number] 01/21/21.0024.LBS. KIT EXP DATE _41-61-67 01/21/21.0024.LBS. NORMAL RANGE IS NOT DETECTEDThe COVID-19 assay is a rapid molecular in vitro diagnostic testutilizing an isothermal nucleic acid amplification technology for thequalitative detection of nucleic acid from the SARS-CoV-2 viral RNA in directnasal or nasopharyngeal swabs. Testing should be performed within the first 7days of the onset of symptoms.NEGATIVE RESULTS SHOULD BE TREATED PRESUMPTIVE AND, IF INCONSISTENT WITHCLINICAL SIGNS AND SYMPTOMS OR NECESSARY FOR PATIENT MANAGEMENT, SHOULD BETESTED WITH DIFFERENT AUTHORIZED OR CLEARED MOLECULAR TESTS. NEGATIVE RESULTSDO NOT PRECLUDE SARS-CoV-2 INFECTION AND SHOULD NOT BE USED THE SOLE BASISFOR PATIENT MANAGEMENT DECISIONS. ETOH: (BRETT: 01/20/2021 22:45) ( MsgRcvd 01/20/2021 23:19) Final results Test Result Flag Units (Reference) ALCOHOL 70 .0 MG/DL ALCOHOL % 0.07 H % (0.00 - 0.01) *FOR MEDICAL PURPOSES ONLY* CMP: (BRETT: 01/20/2021 22:03) ( MsgRcvd 01/20/2021 23:23) Final results Test Result Flag Units (Reference) COMPREHENSIVE METABOLIC PANEL COMPREHENSIVE METABOLIC PANEL SODIUM 140 mEq/L (134 - 153) POTASSIUM 3.9 mEq/L (3.6 - 5.0) CHLORIDE 106 mEq/L (98 - 107) CO2 20 L MEQ/L (22 - 30) GLUCOSE 118 H MG/DL (70 - 99) BUN 33 H MG/DL (7 - 21) CREATININE 1.5 MG/DL (0.7 - 1.5) BUN/CREAT 22 (8 - 27) TOTAL PROTEIN 6.2 L G/DL (6.3 - 8.2) ALBUMIN 4.1 G/DL (3.9 - 5.0) GLOBULIN 2.1 L GM/DL (2.4 - 3.2) A/G RATIO 2.0 (0.8 - 2.0) CALCIUM 9.0 MG/DL (8.4 - 10.2) TOTAL BILI <0.7 MG/DL (0.2 - 1.3) ALKALINE PHOS 273 H U/L (38 - 126) SGOT/AST 19 U/L (5 - 40) SGPT/ALT 12 U/L (7 - 56) ANION GAP 14.0 mmol/L (8.0 - 16.0) 4 Clinical Report - Physicians/Mid Levels [facility] [address] [place] [address] Phone #: ext- [phone] 01/20/2021 21:52 Patient: ADEBAYO LIANG Sex: M : 1955 Age: 65y AGE 65 yrs NON-AA GFR 50 mL/min AFR AMER GFR >60 mL/min Male GFR Interprentation 20-49 yrs >60 mL/min Normal 50-59 yrs >56 mL/min Normal 60-69 yrs >49 mL/min Normal 70-79yrs >42 mL/min Normal 80 and above >35 mL/min Normal Female GFR Interpretation 20-39 yrs >60 mL/min Normal 40-49 yrs >58 mL/min Normal 50-59 yrs >51 mL/min Normal 60-69 yrs >45 mL/min Normal 70-79 yrs >39 mL/min Normal 80 and above >32 mL/min Normal BNP: (BRETT: 01/20/2021 22:03) ( MsgRcvd 01/20/2021 23:23) Final results Test Result Flag Units (Reference) BNP 6632 H PG/ML (0 - 125) CBC w Diff: (BRETT: 01/20/2021 22:03) ( MsgRcvd 01/20/2021 22:16) Final results Test Result Flag Units (Reference) CBC W/AUTOMATED DIFF COMPLETE BLOOD COUNT WBC 6.3 10/uL (4.2 - 11.0) RBC 3.24 L 10/uL (4.50 - 6.30) HEMOGLOBIN 10.2 L g/dL (14.0 - 16.0) HEMATOCRIT 32.5 L % (41.0 - 51.0) MCV 100.3 H fL (80.0 - 94.0) MCH 31.5 pg (27.0 - 34.0) MCHC 31.4 g/dL (31.0 - 36.0) RDW 17.6 H % (11.5 - 14.8) PLATELETS 172 10/uL (150 - 450) MPV 11.6 H fL (7.4 - 10.4) NEUT 74.3 % (37.0 - 80.0) LYMPH 14.2 L % (25.0 - 40.0) MONO 7.7 % (3.0 - 8.0) EOS 3.2 % (0.0 - 7.0) BASO 0.3 % (0.0 - 2.0) %IG 0.3 H % (0.0 - 0.0) %NRBC 0.0 % (0.0 - 0.0) #NEUT 4.66 10/uL (2.00 - 6.90) #LYMPH 0.89 10/uL (0.60 - 3.40) #MONO 0.48 10/uL (0.00 - 0.90) #EOS 0.20 10/uL (0.00 - 0.70) #BASO 0.02 10/uL (0.00 - 0.20) #IG 0.02 10/uL (0.00 - 0.10) #NRBC 0.00 10/uL (0.00 - 0.00) MANUAL DIFF NOT INDICATED RBC MORPH NOT INDICATED Troponin-T: (BRETT: 01/20/2021 22:03) ( MsgRcvd 01/20/2021 23:14) Final results Test Result Flag Units (Reference) TROPONIN T 0.03 NG/ML (0.00 - 0.10) TROPONIN T0.1 ng/ml Recommended as the clinical threshold value Otis Cuevas.PROGRESS AND PROCEDURESCourse of Care: 23:53 01/20/21. coughing and chest pain most likely due to pleural effusion and CHF 5 Clinical Report - Physicians/Mid Levels [facility] [address] [place] [address] Phone #: ext- [phone] 01/20/2021 21:52 Patient: ADEBAYO LIANG Sex: M : 1955 Age: 65y exacerbation. No elevated troponin. BP may be low secondary to nitrogylcerin and alcohol 23:54 01/20/21. no further chest pain. Laboratories are unchanged from previous. Critical care performed (35 minutes). Time is exclusive of separately billable procedures. Time includes: direct patient care, patient reassessment and medical consultation. Discussed case with on-call health care provider. Old medical records ordered. Disposition: Observation in the Acute Inpatient Unit, Monitored.CLINICAL IMPRESSION Acute moderate systolic, left ventricular congestive heart failure. Unstable angina.(Electronically signed by Wilfrid Champagne 01/21/2021 05:48) Name Value Range Interpretation Code Description Data Tavo rce(s) Supporting Document(s) ID Date Data Source [id number] 01/20/2021 09:59:00 PM EDT [facility] ADEBAYO Quinones VisitID: [id number] Date: 23:46MED REC AND OVERVIEW FAXED TO RS AND OVERVIEW FAXED TO U @1905(Electronically signed by Blanka Farris - 01/20/2021 23:46) Name Value Range Interpretation Code Description Data Tavo rce(s) Supporting Document(s) ID Date Data Source [id number] 01/21/2021 04:15:00 AM EDT [facility] (Jon Elizondo MD) Name Value Range Interpretation Code Description Data Tavo rce(s) Supporting Document(s) Laboratory test finding (navigational concept) Laboratory test result [facility] (Jon Elizondo MD) COMPREHENSIVE METABOLIC PANEL Laboratory test finding (navigational concept) 140 meq/L 134-153 [facility] (Jon Elizondo MD) Laboratory test finding (navigational concept) 107 meq/L 98-107 [facility] (Jon Elizondo MD) Laboratory test finding (navigational concept) 4.4 meq/L 3.6-5.0 [facility] (Jon Elizondo MD) Laboratory test finding (navigational concept) 21 meq/L 22-30 Below low normal [facility] (Jon Elizondo MD) Laboratory test finding (navigational concept) 34 mg/dL 7-21 Above high normal [facility] (Jon Elizondo MD) Laboratory test finding (navigational concept) 112 mg/dL 7 0-99 Above high normal [facility] (Jon Elizondo MD) Laboratory test finding (navigational concept) 23 8-27 [facility] (Jon Elizondo MD) Laboratory test finding (navigational concept) 1.5 mg/dL 0.7-1.5 [facility] (Jon Elizondo MD) Laboratory test finding (navigational concept) 6.1 g/dL 6 .3-8.2 Below low normal [facility] (Jon Elizondo MD) Laboratory test finding (navigational concept) 4.1 g/dL 3.9-5.0 [facility] (Jon Elizondo MD) Laboratory test finding (navigational concept) 2.1 0.8-2.0 Above high normal [facility] (Jon Elizondo MD) Laboratory test finding (navigational concept) 2.0 GM/DL 2 .4-3.2 Below low normal [facility] (Jon Elizondo MD) Laboratory test finding (navigational concept) 9.1 mg/dL 8.4-10.2 [facility] (Jon Elizondo MD) Laboratory test finding (navigational concept) 260 U/L 38-126 Above high normal [facility] (Jon Elizondo MD) Laboratory test finding (navigational concept) Laboratory test resu lt 0.2-1.3 [facility] (Jon Elizonod MD) Laboratory test finding (navigational concept) 11 U/L 7-56 [facility] (Jon Elizondo MD) Laboratory test finding (navigational concept) 17 U/L 5-40 [facility] (Jon Elizondo MD) Laboratory test finding (navigational concept) 12.0 mmol/L 8.0-16.0 [facility] (Jon Elizondo MD) Laboratory test finding (navigational concept) 65 yrs [facility] (Jon Elizondo MD) Laboratory test finding (navigational concept) 50 mL/min [facility] (Jon Elizondo MD) Laboratory test finding (navigational concept) Laboratory test result [facility] (Jon Elizondo MD) Male GFR Interprentation 20-49 yrs >60 mL/min Normal 50-59 yrs >56 mL/min Normal 60-69 yrs >49 mL/min Normal 70-79yrs >42 mL/min Normal 80 and above >35 mL/min Normal Female GFR Interpretation 20-39 yrs >60 mL/min Normal 40-49 yrs >58 mL/min Normal 50-59 yrs >51 mL/min Normal 60-69 yrs >45 mL/min Normal 70-79 yrs >39 mL/min Normal 80 and above >32 mL/min Normal ID Date Data Source [id number] 01/21/2021 04:15:00 AM EDT [facility] (Jon Elizondo MD) Name Value Range Interpretation Code Description Data Tavo rce(s) Supporting Document(s) Magnesium [Mass/volume] in Serum or Plasma 2.0 mg/dL 1.7-2.2 [facility] (Jon Elizondo MD) ID Date Data Source [id number] 01/21/2021 04:15:00 AM EDT [facility] (Jon Elizondo MD) Name Value Range Interpretation Code Description Data Tavo rce(s) Supporting Document(s) Laboratory test finding (navigational concept) Laboratory test result [facility] (Jon Elizondo MD) COMPLETE BLOOD COUNT Laboratory test finding (navigational concept) 5.5 10^3/uL 4.2-11.0 [facility] (Jon Elizondo MD) Laboratory test finding (navigational concept) 2.86 10^6/uL 4 .50-6.30 Below low normal [facility] (Jon Elizondo MD) Laboratory test finding (navigational concept) 28.4 % 4 1.0-51.0 Below low normal [facility] (Jon Elizondo MD) Laboratory test finding (navigational concept) 9.0 g/dL 1 4.0-16.0 Below low normal [facility] (Jon Elizondo MD) Laboratory test finding (navigational concept) 99.3 fL 8 0.0-94.0 Above high normal [facility] (Jon Elizondo MD) Laboratory test finding (navigational concept) 31.5 pg 27.0-34.0 [facility] (Jon Elizondo MD) Laboratory test finding (navigational concept) 31.7 g/dL 31.0-36.0 [facility] (Jon Elizondo MD) Laboratory test finding (navigational concept) 17.4 % 1 1.5-14.8 Above high normal [facility] (Jon Elizondo MD) Laboratory test finding (navigational concept) 139 10^3/uL 1 50-450 Below low normal [facility] (Jon Elizondo MD) Laboratory test finding (navigational concept) 79.1 % 37.0-80.0 [facility] (Jon Elizondo MD) Laboratory test finding (navigational concept) 10.6 fL 7 .4-10.4 Above high normal [facility] (Jon Elizondo MD) Laboratory test finding (navigational concept) 7.1 % 3.0-8.0 [facility] (Jon Elizondo MD) Laboratory test finding (navigational concept) 2.2 % 0.0-7.0 [facility] (Jon Elizondo MD) Laboratory test finding (navigational concept) 10.9 % 2 5.0-40.0 Below low normal [facility] (Jon Elizondo MD) Laboratory test finding (navigational concept) 0.5 % 0.0-2.0 [facility] (Jon Elizondo MD) Laboratory test finding (navigational concept) 0.2 % 0.0-0.0 Above high normal [facility] (Jon Elizondo MD) Laboratory test finding (navigational concept) 4.37 10^3/uL 2.00-6.90 [facility] (Jon Elizondo MD) Laboratory test finding (navigational concept) 0.0 % 0.0-0.0 [facility] (Jon Elizondo MD) Laboratory test finding (navigational concept) 0.60 10^3/uL 0.60-3.40 [facility] (Jon Elizondo MD) Laboratory test finding (navigational concept) 0.12 10^3/uL 0.00-0.70 [facility] (Jon Elizondo MD) Laboratory test finding (navigational concept) 0.39 10^3/uL 0.00-0.90 [facility] (Jon Elizondo MD) Laboratory test finding (navigational concept) 0.03 10^3/uL 0.00-0.20 [facility] (Jon Elizondo MD) Laboratory test finding (navigational concept) 0.01 10^3/uL 0.00-0.10 [facility] (Jon Elizondo MD) Laboratory test finding (navigational concept) Laboratory test result [facility] (Jon Elizondo MD) Laboratory test finding (navigational concept) 0.00 10^3/uL 0.00-0.00 [facility] (Jon Elizondo MD) Laboratory test finding (navigational concept) Laboratory test r esult Abnormal (applies to non-numeric results) [facility] (Jon Elizondo MD ) Laboratory test finding (navigational concept) Laboratory test result [facility] (Jon Elizondo MD) Laboratory test finding (navigational concept) Laboratory test r esult Abnormal (applies to non-numeric results) [facility] (Jon Elizondo MD ) { SICKLE CELL (NORMAL: NONE SEEN ) Laboratory test finding (navigational concept) Laboratory test r esult Abnormal (applies to non-numeric results) [facility] (Jon Elizondo MD ) Laboratory test finding (navigational concept) Laboratory test r esult Abnormal (applies to non-numeric results) [facility] (Jon Elizondo MD ) Laboratory test finding (navigational concept) Laboratory test r esult Abnormal (applies to non-numeric results) [facility] (Jon Elizondo MD ) Laboratory test finding (navigational concept) Laboratory test result [facility] (Jon Elizondo MD) COMMENT: _FEW_LARGE_PLATELETS_OBSERVED._ 01/21/21.0452.LBS. . . ID Date Data Source [id number] 01/21/2021 04:15:00 AM EDT [facility] (Jon Elizondo MD) Name Value Range Interpretation Code Description Data Tavo rce(s) Supporting Document(s) Iron [Mass/volume] in Serum or Plasma 48 ug/dL 42-135 [facility] (Jon Elizondo MD) Cobalamin (Vitamin B12) [Mass/volume] in Serum or Plasma 1269 pg /mL 232-1245 Above high normal [facility] (Jon Elizondo MD) ID Date Data Source [id number] 01/21/2021 04:15:00 AM EDT [facility] (Jon Elizondo MD) Name Value Range Interpretation Code Description Data Tavo rce(s) Supporting Document(s) Troponin T.cardiac [Mass/volume] in Serum or Plasma 0.07 ng/mL 0.00-0 .10 [facility] (Jon Elizondo MD) TROPONIN T 0.1 ng/ml Recommended as the clinical th reshold value for Troponin T. ID Date Data Source [id number] 01/21/2021 11:09:00 AM EDT [facility] Name Value Range Interpretation Code Description Data Tavo rce(s) Supporting Document(s) Cobalamin (Vitamin B12) [Mass/volume] in Serum or Plasma 1269 PG /ML 232 - 1245 H [facility] ID Date Data Source [id number] 01/21/2021 10:50:00 AM T [facility] Name Value Range Interpretation Code Description Data Tavo rce(s) Supporting Document(s) Iron [Mass/volume] in Serum or Plasma 48 UG/DL 42 - 135 [facility] ID Date Data Source [id number] 01/21/2021 04:52:00 AM EDT [facility] Name Value Range Interpretation Code Description Data Tavo rce(s) Supporting Document(s) CBC W/AUTOMATED DIFF [facility] COMPLETE BLOOD COUNT Leukocytes [#/volume] in Blood by Automated count 5.5 10^3/uL 4.2 - 1 1.0 [facility] Erythrocytes [#/volume] in Blood by Automated count 2.86 10^6/uL 4. 50 - 6.30 L [facility] Hemoglobin [Mass/volume] in Blood 9.0 g/dL 14.0 - 16.0 L [facility] Hematocrit [Volume Fraction] of Blood by Automated count 28.4 % 4 1.0 - 51.0 L [facility] Erythrocyte mean corpuscular volume [Entitic volume] by Auto mated count 99.3 fL 80.0 - 94.0 H [facility] Erythrocyte mean corpuscular hemoglobin [Entitic mass] by Automated count 31.5 pg 27.0 - 34.0 [facility] Erythrocyte mean corpuscular hemoglobin concentration [Mass/volume] by Automated count 31.7 g/dL 31.0 - 36.0 [facility] Erythrocyte distribution width [Ratio] by Automated count 17.4 % 11.5 - 14.8 H [facility] Platelets [#/volume] in Blood by Automated count 139 10^3/uL 150 - 45 0 L [facility] Platelet mean volume [Entitic volume] in Blood by Automated count 10.6 fL 7.4 - 10.4 H [facility] Neutrophils/100 leukocytes in Blood by Automated count 79.1 % 37. 0 - 80.0 [facility] Lymphocytes/100 leukocytes in Blood by Manual count 10.9 % 25.0 - 40.0 L [facility] Monocytes/100 leukocytes in Blood by Automated count 7.1 % 3.0 - 8.0 [facility] Eosinophils/100 leukocytes in Blood by Automated count 2.2 % 0.0 - 7.0 [facility] Basophils/100 leukocytes in Blood by Automated count 0.5 % 0.0 - 2.0 [facility] %IG 0.2 % 0.0 - 0.0 [facility] %NRBC 0.0 % 0.0 - 0.0 [facility] al Neutrophils [#/volume] in Blood by Automated count 4.37 10^3/uL 2.00 - 6.90 [facility] Lymphocytes [#/volume] in Blood by Automated count 0.60 10^3/uL 0.60 - 3.40 [facility] Monocytes [#/volume] in Blood by Automated count 0.39 10^3/uL 0.00 - 0.90 [facility] Eosinophils [#/volume] in Blood by Automated count 0.12 10^3/uL 0.00 - 0.70 [facility] Basophils [#/volume] in Blood by Automated count 0.03 10^3/uL 0.00 - 0.20 [facility] #IG 0.01 10^3/uL 0.00 - 0.10 [facility] #NRBC 0.00 10^3/uL 0.00 - 0.00 [facility] MANUAL DIFF NOT INDICATED [facility] RBC MORPH SEE BELOW [facility] Anisocytosis [Presence] in Blood by Light microscopy 1+ CHI L: NONE SEEN A [facility] Poikilocytosis [Presence] in Blood by Light microscopy 1+ NOR MAL: NONE SEEN A [facility] HYPO 1+ NORMAL: NONE SEEN A [facility] { SICKLE CELL (NORMAL: NONE SEEN ) Dacrocytes [Presence] in Blood by Light microscopy 1+ NORMAL: NONE SEEN A [facility] Ovalocytes [Presence] in Blood by Light microscopy 1+ NORMAL: NONE SEEN A [facility] Platelet adequacy [Presence] in Blood by Light microscopy NORMAL NORMAL: NORMAL [facility] COMMENT: _FEW_LARGE_PLATELETS_OBSERV ED. 01/21/21.0452.LBS. . . ___ ID Date Data Source [id number] 01/21/2021 04:52:00 AM EDT [facility] Name Value Range Interpretation Code Description Data Tavo rce(s) Supporting Document(s) Magnesium [Mass/volume] in Serum or Plasma 2.0 MG/DL 1.7 - 2.2 [facility] ID Date Data Source [id number] 01/21/2021 04:52:00 AM EDT [facility] Name Value Range Interpretation Code Description Data Tavo rce(s) Supporting Document(s) COMPREHENSIVE METABOLIC PANEL [facility] COMPREHENSIVE METABOLIC PANEL Sodium [Moles/volume] in Serum or Plasma 140 mEq/L 134 - 153 [facility] Potassium [Moles/volume] in Serum or Plasma 4.4 mEq/L 3.6 - 5.0 [facility] Chloride [Moles/volume] in Serum or Plasma 107 mEq/L 98 - 107 [facility] Carbon dioxide, total [Moles/volume] in Serum or Plasma 21 MEQ/L 22 - 30 L [facility] Glucose [Mass/volume] in Serum or Plasma 112 MG/DL 70 - 99 H [facility] BUN 34 MG/DL 7 - 21 H [facility] al Creatinine [Mass/volume] in Serum or Plasma 1.5 MG/DL 0.7 - 1.5 [facility] BUN/CREAT 23 8 - 27 [facility] Protein [Mass/volume] in Serum or Plasma 6.1 G/DL 6.3 - 8.2 L [facility] Albumin [Mass/volume] in Serum or Plasma 4.1 G/DL 3.9 - 5.0 [facility] Globulin [Mass/volume] in Serum by calculation 2.0 GM/DL 2.4 - 3.2 L [facility] A/G RATIO 2.1 0.8 - 2.0 H [facility] Calcium [Mass/volume] in Serum or Plasma 9.1 MG/DL 8.4 - 10.2 [facility] Bilirubin.total [Mass/volume] in Serum or Plasma <0.7 MG/DL 0.2 - 1.3 [facility] Alkaline phosphatase [Enzymatic activity/volume] in Serum or Plasma 260 U/L 38 - 126 H [facility] Aspartate aminotransferase [Enzymatic activity/volume] in Serum or Plasma 17 U/L 5 - 40 [facility] Alanine aminotransferase [Enzymatic activity/volume] in Seru m or Plasma 11 U/L 7 - 56 [facility] Anion gap 3 in Serum or Plasma 12.0 mmol/L 8.0 - 16.0 [facility]GE 65 [facility]/min [facility] A[facility] AMER GFR >60 mL/min [facility] Male GFR In terprentation 20-49 yrs >60 mL/min Normal 50-59 yrs >56 mL/min Normal 60-69 yrs >49 mL/min Normal 70-79yrs >42 mL/min Normal 80 and above >35 mL/min Normal Female GFR Interpretation 20-39 yrs >60 mL/min Normal 40-49 yrs >58 mL/min Normal 50-59 yrs >51 mL/min Normal 60-69 yrs >45 mL/min Normal 70-79 yrs >39 mL/min Normal 80 and above >32 mL/min Normal ID Date Data Source [id number] 01/21/2021 04:40:00 AM EDT [facility] Name Value Range Interpretation Code Description Data Tavo rce(s) Supporting Document(s) TROPONIN T 0.07 NG/ML 0.00 - 0.10 [facility] TROPONIN T0.1 ng/ml Recommended as the c linical threshold value forTroponin T. ID Date Data Source [id number] 01/20/2021 11:39:00 PM EDT [facility] Name Value Range Interpretation Code Description Data Tavo rce(s) Supporting Document(s) COVID19 Case rprt NOT DETECTED [facility] This lab was ordered by [facility] and reported by [facility]. ID Date Data Source [id number] 01/21/2021 12:24:00 AM EDT [facility] NOT DETECTEDNOT DETECTED PROCE DURAL CONTROL VALID KIT LOT # _[id number] 01/21/21.0024.LBS. KIT EXP DATE _90-22-08 01/21/21.0024.LBS. NORMAL RANGE IS NOT DETECTEDThe COVID-19 assay is a rapid molecular in vitro diagnostic testutilizing an isothermal nucleic acid amplification technology for thequalitative detection of nucleic acid from the SARS-CoV-2 viral RNA in directnasal or nasopharyngeal swabs. Testing should be performed within the f irst 7days of the onset of symptoms.NEGATIVE RESULTS SHOULD BE TREATED PRESUMPTIVE AND, IF INCONSISTENT WITHCLINICAL SIGNS AND SYMPTOMS OR NECESSARY FOR PATIENT MANAGEMENT, SHOULD BETESTED WITH DIFFERENT AUTHORIZED OR CLEARED MOLECULAR TESTS. NEGATIVE RESULTSDO NOT PRECLUDE SARS-CoV-2 INFECTION AND SHOULD NOT BE USED THE SOLE BASISFOR PATIENT MANAGEMENT DECISIONS. Name Value Range Interpretation Code Description Data Tavo rce(s) Supporting Document(s) ID Date Data Source [id number] 01/20/2021 10:45:00 PM EDT [facility] (Jon Elizondo MD) Name Value Range Interpretation Code Description Data Tavo rce(s) Supporting Document(s) Laboratory test finding (navigational concept) 0.07 % 0 .00-0.01 Above high normal [facility] (Jon Elizondo MD) *FOR MEDICAL PURPOSES ONLY* Laboratory test finding (navigational concept) 70.0 mg/dL [facility] (Jon Elizondo MD) ID Date Data Source [id number] 01/20/2021 11:18:00 PM EDT [facility] Name Value Range Interpretation Code Description Data Tavo rce(s) Supporting Document(s) Ethanol [Moles/volume] in Blood 70.0 MG/DL [facility] ALCOHOL % 0.07 % 0.00 - 0.01 [facility] *FOR MEDICAL PURPOSES ONLY * ID Date Data Source [id number] 01/20/2021 10:03:00 PM EDT [facility] (Jon Elizondo MD) Name Value Range Interpretation Code Description Data Tavo rce(s) Supporting Document(s) Natriuretic peptide.B prohormone N-Terminal [Mass/volu me] in Serum or Plasma 6632 pg/mL 0-125 Above high normal [facility] (Jon Elizondo MD) ID Date Data Source [id number] 01/20/2021 10:03:00 PM EDT [facility] (Jon Elizondo MD) Name Value Range Interpretation Code Description Data Tavo rce(s) Supporting Document(s) Laboratory test finding (navigational concept) Laboratory test result [facility] (Jon Elizondo MD) COMPREHENSIVE METABOLIC PANEL Laboratory test finding (navigational concept) 140 meq/L 134-153 [facility] (Jon Elizondo MD) Laboratory test finding (navigational concept) 106 meq/L 98-107 [facility] (Jon Elizondo MD) Laboratory test finding (navigational concept) 3.9 meq/L 3.6-5.0 [facility] (Jon Elizondo MD) Laboratory test finding (navigational concept) 118 mg/dL 7 0-99 Above high normal [facility] (Jon Elizondo MD) Laboratory test finding (navigational concept) 20 meq/L 22-30 Below low normal [facility] (Jon Elizondo MD) Laboratory test finding (navigational concept) 33 mg/dL 7-21 Above high normal [facility] (Jon Elizondo MD) Laboratory test finding (navigational concept) 1.5 mg/dL 0.7-1.5 [facility] (Jon Elizondo MD) Laboratory test finding (navigational concept) 6.2 g/dL 6 .3-8.2 Below low normal [facility] (Jon Elizondo MD) Laboratory test finding (navigational concept) 22 8-27 [facility] (Jon Elizondo MD) Laboratory test finding (navigational concept) 4.1 g/dL 3.9-5.0 [facility] (Jon Elizondo MD) Laboratory test finding (navigational concept) 2.1 GM/DL 2 .4-3.2 Below low normal [facility] (Jon Elizondo MD) Laboratory test finding (navigational concept) 9.0 mg/dL 8.4-10.2 [facility] (Jon Elizondo MD) Laboratory test finding (navigational concept) 2.0 0.8-2.0 [facility] (Jon Elizondo MD) Laboratory test finding (navigational concept) Laboratory test resu lt 0.2-1.3 [facility] (Jon Elizondo MD) Laboratory test finding (navigational concept) 273 U/L 38-126 Above high normal [facility] (Jon Elizondo MD) Laboratory test finding (navigational concept) 12 U/L 7-56 [facility] (Jon Elizondo MD) Laboratory test finding (navigational concept) 19 U/L 5-40 [facility] (Jon Elizondo MD) Laboratory test finding (navigational concept) 14.0 mmol/L 8.0-16.0 [facility] (Jon Elizondo MD) Laboratory test finding (navigational concept) 50 mL/min [facility] (Jon Elizondo MD) Laboratory test finding (navigational concept) 65 yrs [facility] (Jon Elizondo MD) Laboratory test finding (navigational concept) Laboratory test result [facility] (Jon Elizondo MD) Male GFR Interprentation 20-49 yrs >60 mL/min Normal 50-59 yrs >56 mL/min Normal 60-69 yrs >49 mL/min Normal 70-79yrs >42 mL/min Normal 80 and above >35 mL/min Normal Female GFR Interpretation 20-39 yrs >60 mL/min Normal 40-49 yrs >58 mL/min Normal 50-59 yrs >51 mL/min Normal 60-69 yrs >45 mL/min Normal 70-79 yrs >39 mL/min Normal 80 and above >32 mL/min Normal ID Date Data Source [id number] 01/20/2021 10:03:00 PM EDT [facility] (Jon Elizondo MD) Name Value Range Interpretation Code Description Data Tavo rce(s) Supporting Document(s) Troponin T.cardiac [Mass/volume] in Serum or Plasma 0.03 ng/mL 0.00-0 .10 [facility] (Jon Elizondo MD) TROPONIN T 0.1 ng/ml Recommended as the clinical th reshold value for Troponin T. ID Date Data Source [id number] 01/20/2021 10:03:00 PM EDT [facility] (Jon Elizondo MD) Name Value Range Interpretation Code Description Data Tavo rce(s) Supporting Document(s) Laboratory test finding (navigational concept) Laboratory test result [facility] (Jon Elizondo MD) COMPLETE BLOOD COUNT Laboratory test finding (navigational concept) 6.3 10^3/uL 4.2-11.0 [facility] (Jon Elizondo MD) Laboratory test finding (navigational concept) 10.2 g/dL 1 4.0-16.0 Below low normal [facility] (Jon Elizondo MD) Laboratory test finding (navigational concept) 3.24 10^6/uL 4 .50-6.30 Below low normal [facility] (Jon Elizondo MD) Laboratory test finding (navigational concept) 100.3 fL 8 0.0-94.0 Above high normal [facility] (Jon Elizondo MD) Laboratory test finding (navigational concept) 32.5 % 4 1.0-51.0 Below low normal [facility] (Jon Elizondo MD) Laboratory test finding (navigational concept) 31.5 pg 27.0-34.0 [facility] (Jon Elizondo MD) Laboratory test finding (navigational concept) 31.4 g/dL 31.0-36.0 [facility] (Jon Elizondo MD) Laboratory test finding (navigational concept) 17.6 % 1 1.5-14.8 Above high normal [facility] (Jon Elizondo MD) Laboratory test finding (navigational concept) 172 10^3/uL 150-450 [facility] (Jon Elizondo MD) Laboratory test finding (navigational concept) 11.6 fL 7 .4-10.4 Above high normal [facility] (Jon Elizondo MD) Laboratory test finding (navigational concept) 74.3 % 37.0-80.0 [facility] (Jon Elizondo MD) Laboratory test finding (navigational concept) 14.2 % 2 5.0-40.0 Below low normal [facility] (Jon Elizondo MD) Laboratory test finding (navigational concept) 7.7 % 3.0-8.0 [facility] (Jon Elizondo MD) Laboratory test finding (navigational concept) 0.3 % 0.0-2.0 [facility] (Jon Elizondo MD) Laboratory test finding (navigational concept) 3.2 % 0.0-7.0 [facility] (Jon Elizondo MD) Laboratory test finding (navigational concept) 0.0 % 0.0-0.0 [facility] (Jon Elizondo MD) Laboratory test finding (navigational concept) 0.3 % 0.0-0.0 Above high normal [facility] (Jon Elizondo MD) Laboratory test finding (navigational concept) 0.89 10^3/uL 0.60-3.40 [facility] (Jon Elizondo MD) Laboratory test finding (navigational concept) 4.66 10^3/uL 2.00-6.90 [facility] (Jon Elizondo MD) Laboratory test finding (navigational concept) 0.48 10^3/uL 0.00-0.90 [facility] (Jon Elizondo MD) Laboratory test finding (navigational concept) 0.20 10^3/uL 0.00-0.70 [facility] (Jon Elizondo MD) Laboratory test finding (navigational concept) 0.02 10^3/uL 0.00-0.20 [facility] (Jon Elizondo MD) Laboratory test finding (navigational concept) 0.02 10^3/uL 0.00-0.10 [facility] (Jon Elizondo MD) Laboratory test finding (navigational concept) 0.00 10^3/uL 0.00-0.00 [facility] (Jon Elizondo MD) Laboratory test finding (navigational concept) Laboratory test result [facility] (Jon Elizondo MD) Laboratory test finding (navigational concept) Laboratory test result [facility] (Jon Elizondo MD) ID Date Data Source [id number] 01/20/2021 11:23:00 PM EDT [facility] Name Value Range Interpretation Code Description Data Tavo rce(s) Supporting Document(s) COMPREHENSIVE METABOLIC PANEL [facility] COMPREHENSIVE METABOLIC PANEL Sodium [Moles/volume] in Serum or Plasma 140 mEq/L 134 - 153 [facility] Potassium [Moles/volume] in Serum or Plasma 3.9 mEq/L 3.6 - 5.0 [facility] Chloride [Moles/volume] in Serum or Plasma 106 mEq/L 98 - 107 [facility] Carbon dioxide, total [Moles/volume] in Serum or Plasma 20 MEQ/L 22 - 30 L [facility] Glucose [Mass/volume] in Serum or Plasma 118 MG/DL 70 - 99 [facility] BUN 33 MG/DL 7 - 21 [facility] Creatinine [Mass/volume] in Serum or Plasma 1.5 MG/DL 0.7 - 1.5 [facility] BUN/CREAT 22 8 - [facility] Protein [Mass/volume] in Serum or Plasma 6.2 G/DL 6.3 - 8.2 L [facility] Albumin [Mass/volume] in Serum or Plasma 4.1 G/DL 3.9 - 5.0 [facility] Globulin [Mass/volume] in Serum by calculation 2.1 GM/DL 2.4 - 3.2 L [facility] A/G RATIO 2.0 0.8 - 2.0 [facility] Calcium [Mass/volume] in Serum or Plasma 9.0 MG/DL 8.4 - 10.2 [facility] Bilirubin.total [Mass/volume] in Serum or Plasma <0.7 MG/DL 0.2 - 1.3 [facility] Alkaline phosphatase [Enzymatic activity/volume] in Serum or Plasma 273 U/L 38 - 126 [facility] Aspartate aminotransferase [Enzymatic activity/volume] in Serum or Plasma 19 U/L 5 - 40 [facility] Alanine aminotransferase [Enzymatic activity/volume] in Seru m or Plasma 12 U/L 7 - 56 [facility] Anion gap 3 in Serum or Plasma 14.0 mmol/L 8.0 - 16.0 [facility] AGE 65 yrs [facility] al NON-AA GFR 50 mL/min [facility] AFR AMER GFR >60 mL/min [facility] spital Male GFR In terprentation 20-49 yrs >60 mL/min Normal 50-59 yrs >56 mL/min Normal 60-69 yrs >49 mL/min Normal 70-79yrs >42 mL/min Normal 80 and above >35 mL/min Normal Female GFR Interpretation 20-39 yrs >60 mL/min Normal 40-49 yrs >58 mL/min Normal 50-59 yrs >51 mL/min Normal 60-69 yrs >45 mL/min Normal 70-79 yrs >39 mL/min Normal 80 and above >32 mL/min Normal ID Date Data Source [id number] 01/20/2021 11:23:00 PM EDT [facility] Name Value Range Interpretation Code Description Data Tavo rce(s) Supporting Document(s) BNP 6632 PG/ML 0 - 125 [facility] ID Date Data Source [id number] 01/20/2021 11:13:00 PM EDT [facility] Name Value Range Interpretation Code Description Data Tavo rce(s) Supporting Document(s) TROPONIN T 0.03 NG/ML 0.00 - 0.10 [facility] TROPONIN T0.1 ng/ml Recommended as the c linical threshold value forTroponin T. ID Date Data Source [id number] 01/20/2021 10:16:00 PM EDT [facility] Name Value Range Interpretation Code Description Data Tavo rce(s) Supporting Document(s) CBC W/AUTOMATED DIFF [facility] COMPLETE BLOOD COUNT Leukocytes [#/volume] in Blood by Automated count 6.3 10^3/uL 4.2 - 1 1.0 [facility] Erythrocytes [#/volume] in Blood by Automated count 3.24 10^6/uL 4. 50 - 6.30 L [facility] Hemoglobin [Mass/volume] in Blood 10.2 g/dL 14.0 - 16.0 L [facility] Hematocrit [Volume Fraction] of Blood by Automated count 32.5 % 4 1.0 - 51.0 L [facility] Erythrocyte mean corpuscular volume [Entitic volume] b y Automated count 100.3 fL 80.0 - 94.0 H [facility] Erythrocyte mean corpuscular hemoglobin [Entitic mass] by Automated count 31.5 pg 27.0 - 34.0 [facility] Erythrocyte mean corpuscular hemoglobin concentration [Mass/volume] by Automated count 31.4 g/dL 31.0 - 36.0 [facility] Erythrocyte distribution width [Ratio] by Automated count 17.6 % 11.5 - 14.8 H [facility] Platelets [#/volume] in Blood by Automated count 172 10^3/uL 150 - 45 0 [facility] Platelet mean volume [Entitic volume] in Blood by Automated count 11.6 fL 7.4 - 10.4 H [facility] Neutrophils/100 leukocytes in Blood by Automated count 74.3 % 37. 0 - 80.0 [facility] Lymphocytes/100 leukocytes in Blood by Manual count 14.2 % 25.0 - 40.0 L [facility] Monocytes/100 leukocytes in Blood by Automated count 7.7 % 3.0 - 8.0 [facility] Eosinophils/100 leukocytes in Blood by Automated count 3.2 % 0.0 - 7.0 [facility] Basophils/100 leukocytes in Blood by Automated count 0.3 % 0.0 - 2.0 [facility] %IG 0.3 % 0.0 - 0.0 [facility] %NRBC 0.0 % 0.0 - 0.0 [facility] Neutrophils [#/volume] in Blood by Automated count 4.66 10^3/uL 2.00 - 6.90 [facility] Lymphocytes [#/volume] in Blood by Automated count 0.89 10^3/uL 0.60 - 3.40 [facility] Monocytes [#/volume] in Blood by Automated count 0.48 10^3/uL 0.00 - 0.90 [facility] Eosinophils [#/volume] in Blood by Automated count 0.20 10^3/uL 0.00 - 0.70 [facility] Basophils [#/volume] in Blood by Automated count 0.02 10^3/uL 0.00 - 0.20 [facility] #IG 0.02 10^3/uL 0.00 - 0.10 [facility] #NRBC 0.00 10^3/uL 0.00 - 0.00 [facility] MANUAL DIFF NOT INDICATED [facility] RBC MORPH NOT INDICATED [facility] spital ID Date Data Source [id number] 01/08/2021 12:04:00 [place] [address] DISCHARGE SUMMARYNAME: FERNIE Charlton ROOM#: [id number] OF : 1955 MR#: [id number] PHYS: Jon Elizondo MD, PC DATE: 01/03/21 DISCHARGED:HISTORY OF PRESENT ILLNESS:This 65-year-old white male presented with history of congestive heart failure, coronary artery disease,cardiomyopathy. He came with dyspnea and chest pain. He became short of breath. He was found to bein congestive heart failure. He had orthopnea and paroxysmal nocturnal dyspnea. He was admitted. Hewas put on Lasix drip 10 mg/hour IV and he diuresed very well. On exam, moderately built. Bloodpressure was 120/80. Head was normal. Heart rate was 70. Lungs had rales at the bases. Abdomen soft.Had 1+ edema of the leg.LABORATORY STUDIES:Patient's lab tests showed hemoglobin of 10.2, sodium 143, potassium 3.8, BUN 26, creatinine 1.2. ACAT scan of the chest did show bilateral pleural effusion and free fluid in the upper abdomen andgallstone. Patient was given Lasix 80 mg IV in the emergency room and put on Lasix 10 mg/hour IV.Magnesium 1.9. On 01/04, hemoglobin 10.1, sodium 142, potassium 3.6, BUN 27, creatinine 1.2. Ironwas low at 41. On 01/06, BUN 32, creatinine 1.2, potassium 4, hemoglobin 19.4. On 01/07,hemoglobin 9.7. On 01/08, sodium 139, potassium 4.3.COURSE DURING HOSPITALIZATION:Patient was put on Lasix 10 mg/hour IV and he diuresed well, almost 2000 cc fluid. Dyspnea gotbetter. Lasix drip was then discontinued on the and put on Lasix 80 bid. His iron was low, wasgiven Venofer 200 mg IV and Procrit 20,000. Dyspnea did improve. He had a nuclear stress test thatwas positive for mild arrhythmia, so he is scheduled for a coronary angiogram and he will [facility]rans[facility]red [facility] under Dr. Ching.FINAL DIAGNOSES:1. CONGESTIVE HEART FAILURE, SYSTOLIC EJECTION OF 20%.2. CORONARY ARTERY DISEASE, SMALL PERFUSION DEFECT IN THE LATERAL WALL.3. HISTORY OF CARDIOMYOPATHY.4. HISTORY OF CEREBROVASCULAR ACCIDENT.5. HISTORY OF HYPERTENSION.6. HISTORY OF HYPOTHYROIDISM.7. HISTORY OF SLEEP APNEA.8. HISTORY OF CHRONIC OBSTRUCTIVE PULMONARY DISEASE.9. HISTORY OF WATCHMAN.10. HISTORY OF ATRIAL FIBRILLATION.11. HISTORY OF RIGHT CAROTID ENDARTERECTOMY.12. HISTORY OF CORONARY ARTERY BYPASS GRAFT.13. HISTORY OF LEFT SUBCLAVIAN CAROTID BYPASS. [address] [place] [id number] DISCHARGE SUMMARYNAME: FERNIE Charlton ROOM#: [id number] OF : 1955 MR#: [id number] PHYS: [facility] MD, PC [id number] DATE: 01/03/21 DISCHARGED:Patient has multiple co-morbidities and he will ashlyn efit from the coronary angiogram.DD: Jon Elizondo MD, MANDEEP 01/08/21 09:30DT: [facility] 01/08/21 12:04DS: Jon Elizondo MD, PC 01/16/21 08:09 2 Name Value Range Interpretation Code Description Data Tavo rce(s) Supporting Document(s) ID Date Data Source [id number] 01/09/2021 12:42:49 PM EDT [facility] INFORMATIONPatient MRN Name Date of Age Gend*PT [id number] Adebayo Liang Jr. 1955 65 years M IPPT Location Admission Date/Time Visit ID Attending [id number] 01/08/21 1420 --- Arturo Ching MD([id number]) EPI ID CSN Admitting Provider [id number] Arturo Ching MD([id number]) Attestation signed by Arturo Ching MD at 01/09/2021 12:42 PMI saw and evaluated the patient and reviewed Ms. Geronimo's note. I agree with thehistory, physical and medical decision making with the following additions,exceptions, and/or observations:Cath unremarkableNo CPHD stableDC home todaySignature: Arturo Ching MDDate: January 09, 2021Time: 12:42 PM --Cardiology Discharge SummaryPatient Name: Adebayo Zoltan Liang Jr. of : 1955 Age 65 yearsPrimary Physician: Francia Jauregui MD PCP Agjqmxkew Date: 01/08/2021 Discharge Date: 01/09/2021[facility]:Principal Problem: Unstable angina CAD HTN HLD Tobacco use CHF CABG PAF/Watchman ICMP ICD CADDischarge Medications:Your medication listCHANGE how you take these medications Instructions Last Dose Given Morning Afternoon Evening Bedtime As Neededlevothyroxine 75 MCG tabletCommonly known as: SYNTHROID, LEVOTHROIDWhat changed: medication strength how much to take Take 1 tablet (75 mcg total) by mouth dailyMagnesium Oxide 400 MG tabletCommonly known as: MAG-OXStart taking on: January 10, 2021What changed: when to take this Take 1 tablet (400 mg total) by mouth dailyCONTINUE taking these medications Instructions Last Dose Given Morning Afternoon Evening Bedtime As Neededallopurinol 300 MG tabletCommonly known as: ZYLOPRIM Take 300 mg by mouth dailyascorbic acid 500 MG tabletCommonly known as: VITAMIN C Take 500 mg by mouth dailyaspirin 81 MG tablet Take 81 mg by mouth dailyatorvastatin 80 MG tabletCommonly known as: LIPITOR Take 80 mg by mouth dailyDaily Jodi per tablet Take 1 tablet by mouth 2 (two) times a dayEntresto 49-51 MG TabsGeneric drug: sacubitril-valsartan Take 1 tablet by mouth 2 (two) times a dayferrous sulfate 324 (65 Fe) MG Tbec Take 324 mg by mouth 2 (two) times a dayfluticasone 50 MCG/ACT nasal sprayCommonly known as: FLONASE 1 spray into each nostril daily as needed for allergiesfurosemide 40 MG tabletCommonly known as: LASIX Take 40 mg by mouth 2 (two) times a daymetoprolol succinate 25 MG 24 hr tabletCommonly known as: TOPROL-XL Take 1 tablet (25 mg total) by mouth dailynitroglycerin 0.4 MG SL tabletCommonly known as: NITROSTAT Place 0.4 mg under the tongue every 5 (five) minutes as needed for chest painomeprazole 20 MG capsuleCommonly known as: PriLOSEC Take 20 mg by mouth dailySTOP taking these medicationsacetaminophen 325 MG tabletCommonly known as: TYLENOLclopidogrel 75 MG tabletCommonly known as: PLAVIXloratadine 10 MG tabletCommonly known as: CLARITINOLIVE LEAF EXTRACT POTRIPLE OMEGA COMPLEX POWhere to Get Your MedicationsInformation about where to get these medications is not yet availableAsk your nurse or doctor about these medications levothyroxine 75 MCG tablet Magnesium Oxide 400 MG tabletFollow Up Instructions:Dr. Rousseau Hospital Course:This is a pleasant 65-year-old gentleman with a PMH that includes CAD statuspost CABG x2 (1999 and 2012), ischemic cardiomyopathy, ICD in place, CHF, HTN,HLD, TIA, COPD, hypothyroidism, atrial fibrillation s/p Watchman, carotid arterystenosis status post bilateral carotid endarterectomies and active tobacco use(quit 1 week ago). Over the last 2 weeks he has been experiencing worsening shortness of breathand lower extremity edema. His Lasix and medications were adjusted andincreased at home with little relief. He recently had a positive nuclear stresstest with reversible lateral wall ischemia and [facility] that revealed an EF of only 16% (2019 LVEF was 30-40%) He was scheduledfor an elective cardiac catheterization January 15. On 01/03/2021 he presented to [facility] with increasing andworsening shortness of breath, orthopnea, PND and lower extremity edema. Weightgain of > 10 pounds. He reports he felt like an"elephant " was sitting on hischest. He was admitted and treated for decompensated heart failure, started carmelo Lasix IV drip, Entresto was held and carvedilol was increased. Ruled out ene NH. He is transferred for a cardiac catheterization.[facility] from [facility]. All 3 grafts are patentincluding the UMANA to the LAD, the vein graft to the OM, and the vein graft tothe PDA. The EF is around baseline at 25 to 30%.Continue medical therapy is recommended.Patient will be discharged home today with follow-up with Dr. Elizondo as anoutpatientNo chest discomfort or dyspnea.Reinforced HF teaching,low sodium diet,fluid restriction and daily weights.Aggressive risk factor modifications and smoking cessation en couragedAll questions answeredWill follow up with Dr. Caro-apt madeDischarge Exam:Blood Pressure: BP: 122/58 Pulse: Heart Rate: 59Temperature: Temp: 97.9 F Respirations: Resp: 20Admission Weight: Weight: 86.8 kg (191 lb 4.8 oz) O2 Saturation: SpO2: 94 %Discharge Weight: Weight: 86.8 kg (191 lb 4.8 oz) BMI: Body mass index is 28.25kg/m .Discharge Physical Exam: General no acute distress Neck No JVD, bilateral carotid bruits appreciated L>RBilateral carotid scars noted Chest Non-tender to palpation Lungs Decreased. Scattered expiratory wheezes, prolonged expiratory phaseand a few rhonchi that cleared after cough Heart Normal S1 S2 soft SM Abdomen Soft, non-tender, non-distended, + bowel sounds Neuro AAOx3, no focal motor or sensory deficit Derm No rashes, or ulcers Vascular No LE edema. Right femoral cath site intact. No bleeding or hematoma Diagnostics:Lab ResultsComponent Value Date CREATININE 1.26 01/09/2021 CREATININE 1.27 01/08/2021 CREATININE 1.22 09/14/2019Results from last 7 daysLab Units 01/08/2115WBC 10*3/uL 5.0 4.7HEMOGLOBIN g/dL 9.7* 9.8*HEMATOCRIT % 29.6* 30.6*PLATELETS 10*3/uL 132* 123*Results Procedure Component Value Units Date/Time 2018 nCoV Amplified [[id number]] Collected: 01/08/21 1648 Order Status: Completed Specimen: Swab from Nasopharyngeal Updated: SPECIMEN DESCRIPTION NASOPHARYNGEAL COVID19 RESULT NOT DETECTED Comment: THIS ASSAY AMPLIFIES AND DETECTSTHE TARGET RNA USING REAL- TIME PCR.TESTING PERFORMED ON THE [facility] Comment SEE NOTES Comment: THE U.[place]. FDA HAS MADE THIS TEST AVAILABLEUNDER AN EMERGENCY USE AUTHORIZATION(EUA) FOR THE DETECTION AND/OR DIAGNOSISOF THE VIRUS THAT CAUSES COVID-19.NEGATIVE 2019_NCOV RT-PCR RESULTS DONOT PRECLUDE 2019_NCOV INFECTION ANDSHOULD NOT BE USED THE SOLE BASISFOR PATIENT MANAGEMENT DECISIONS. FIRST TEST NO EMPLOYED IN HLTHCARE NO SYMPTOMATIC NO DATE OF SYMPT ONSET NOT APPLICABLE HOSPITALIZED YES ICU NO CONGREGATE CARE SET NO NOMary SARAH GeronimoTotal time spent for discharge on date of discharge: 30 minutes Name Value Range Interpretation Code Description Data Tavo rce(s) Supporting Document(s) ID Date Data Source [id number] 01/09/2021 10:32:35 AM EDT [facility] Name Value Range Interpretation Code Description Data Tavo rce(s) Supporting Document(s) &PDF [facility] ETCJZf5xUiZWOdSt05/DFRvzIGUzf9UlSKqqKNd4UQcuGRXcK8KhhPjaCQ2VJwMUAElAM7XMIPlqRrDX Dcm [file] yRx6x/uKjuT9BbSvdF4AQ/t3icYJPIq31Yj128Sugl45X4125X2zLhZCZHISgYWldciIMKoZd+[place]ent[place]/53 [file] ICAgICAgICAgICAgICAgICAgICAgICAgICAgICAgIC AgICAgICAgICAgICAgICAgICAgICAgICAgICAgICANCiAgICAgICAgICAgICAgICAgICAgICAgICAgIC AgICAgICAgICAgICAgICAgICAgICAgICAgICAgICAgICAgICAgICAgICAgICAgICAgICAgICAgICAgIC AgICAgICAgICAgICANCiAgICAgICAgICAgICAgICAg ICAgICAgICAgICAgICAgICAgICAgICAgICAgICAgICAgICAgICAgICAgICAgICAgICAgICAgICAgICAg ICAgICAgICAgICAgICAgICAgICAgICANCiAgICAgICAgICAgICAgICAgICAgICAgICAgICAgICAgICAg ICAgICAgICAgICAgICAgICAgICAgICAgICAgICAgIC AgICAgICAgICAgICAgICAgICAgICAgICAgICAgICAgICANCiAgICAgICAgICAgICAgICAgICAgICAgIC AgICAgICAgICAgICAgICAgICAgICAgICAgICAgICAgICAgICAgICAgICAgICAgICAgICAgICAgICAgIC AgICAgICAgICAgICAgICANCiAgICAgICAgICAgICAg ICAgICAgICAgICAgICAgICAgICAgICAgICAgICAgICAgICAgICAgICAgICAgICAgICAgICAgICAgICAg ICAgICAgICAgICAgICAgICAgICAgICAgICANCiAgICAgICAgICAgICAgICAgICAgICAgICAgICAgICAg ICAgICAgICAgICAgICAgICAgICAgICAgICAgICAgIC AgICAgICAgICAgICAgICAgICAgICAgICAgICAgICAgICAgICANCiAgICAgICAgICAgICAgICAgICAgIC AgICAgICAgICAgICAgICAgICAgICAgICAgICAgICAgICAgICAgICAgICAgICAgICAgICAgICAgICAgIC AgICAgICAgICAgICAgICAgICANCiAgICAgICAgICAg ICAgICAgICAgICAgICAgICAgICAgICAgICAgICAgICAgICAgICAgICAgICAgICAgICAgICAgICAgICAg ICAgICAgICAgICAgICAgICAgICAgICAgICAgICANCiAgICAgICAgICAgICAgICAgICAgICAgICAgICAg ICAgICAgICAgICAgICAgICAgICAgICAgICAgICAgIC AgICAgICAgICAgICAgICAgICAgICAgICAgICAgICAgICAgICAgICANCjw/yAYmS8hxrACcafL7J9fdUw 7MXm2NAN8lf6OgESWhUVwiezWuHpeNRyXmCHLyBocXMdr5AAkdVE2VnBCuF1CdG9IxFHjqIQ0ZFZLoVO VjtEZaWFQtXXXrAmH4ICVhMImdUJ2HuDBvXWllNFLo FKYzXtIcMXMhNDGvYNYvSKIiRRESZX4AUhUeL9OpzL80AGNFNm1+AFflolHcSbrAFeKwCRXha4QxJKh4 ZT8EJKHiTwbct2XmWhGjJFHMTDxhCW6NOVZ5BJV3FVSoWj7ILAUtD325txEhFL7RQh0ORnSoYQ1rdo8H OvOwKYBkFxxZVmo0MUgnOX3DrYFbDYqJuJCiUC01xw fDPmYhC2Xng6DxGjW8KGDcRyOqDOryWZUoHxTiBV20rBydTU9NGRYhBZTfJP67LQSzMSIoOt6PJs2TXn SgAS2jlk1SDqHdNBOpJwaQCpc6DNadJW4DpXObL0RaaFFjl6mJCiFmK8LWLMNdOFRzRd8YDBDvOsPvKY KyTXuvUX9zRJLuHYAOxChzatD1JM1OXB6evzSwHK0U TlCpRl5kQk1CUcLmH2DjD9BkTKPxSXUNUUjiYY7MDLbaCK7tPG5Ve6UPhOSktH2wky3VVEJiFWYhLijp ov1CFiyeK0S9hEjePDIiLgWjYZQLZKxdCN9ALDIiLVZ5VFKnInQcJUNYYnZmX86vKH6XK2Xnv74sAyH3 RPWhOoMwDYveAT89xSyximIvyHPtxXklKB9JIr0+DQ pvdqYmNvqWIrzfEAXMQoQeRpTIEaBuBJBnYZBiNXWpDjY2IrWnSi5QJQUtVDTdJANgRfBnRKUgFNMqAT fwQRWqDOw5YZE9ZTXoBAUoHJ8RMbXrZHXgRLF4EIWmIPWpHDJwsn2PPAUhYMOlXGQ3MMGfHHJkTSQdGS jpVQNeVWFlVjxjQVLcYEIhSK4AXdZsZYYpNQE0UcHk AUMkLNXiwt1PBOYfXZWaFECoTOGqMWHmCDNhXTqvWEUxWKE6VkF0NLMiJXZxFI1ZZaMtJPCzVJP7IiUi FLCbRKXzfq9PMGXtRRYkAqLhZCNfGKWjVIXyGOfpKPWbWVQ1KQfoOMThMKNkIW3STgGyJZRuOXvhPSpp FMVgKORjqg8BOGRkYRHdSWY4EEHoMFUbINQdCUybOV GmVBE9SQX7WCUoBQWtHP3FLjKzVVAtXHv3FicfWBCmERVqph5MUCFgSKXdHIE3ZgZkMPPlNTBfWRhhON RaMJDeBSw9WRBqXZQeFK0NDoVvRJBvFVUfIbqyYYPhWBGski5NABHpYNTqJUvpMjFbUOEqSELhQPfhFX GrDYG1GxEuQERkZPMrPD5KNxPmSFZfAPA2GdBdDJQm KYQrow3KQXYmGHEvOktpXwOnSXPrHXGzKTlwNPOrNDI9TKN8DKExLLLtDG9VZeTzYTYxUcV5YmIgMUOy KJPjzi8PBSVlZKEgAoY8RSOsVXDiFGZyHHbfQZVgDCShDlopEICwFSPwNC7EAuPdXFEnKNqpBRqhUYYr ETNtkj1RDJQnKIO6ZVEwIPDuNNFfJQZeGYdsINIjXY CnGYP9YDIxBKTiSM3LXwJmOQYlVvQjMQujJCJmXDMhaj1RVYGjAVC0IWAcQKGmOZUxKPVqRIqaFCXdOA d8RVYmRVVfFWIvHS8RUdMgIZVcKPupLASmJPCqWJHqpy8YWPNgWHZ3BkZ8JTUtJOMnLIOsEVscCJPnZA e4QLxhEEHuMBPnXM9CJmRzZYrxBTEREof7DFdvV0k4 RQJuEx4DT8Xqn5MbWvCyGMBQQGouAI4qzyHcCFMbEy8VF5vEDamlHHCqUUJ8TjB1GVW0VzI8P6ClTZH5 VAOtHiRrR1WnMT4vHZGhQCW9HfepWFu2ZNHiLKexZ2S4JRK3A9QeWFT3EOKwLbZjAK6KAo7ZIyC4FXI9 nLKiZm7ZVNv5LlXJDxDyEF2YTDl= ID Date Data Source [id number] 01/09/2021 09:29:34 AM EDT [facility] INFORMATIONPatient MRN Name Date of Age Gend*PT [id number] Adebayo Liang Jr. 1955 65 years M IPPT Location Admission Date/Time Visit ID Attending [id number] 01/08/21 1420 --- Arturo Ching MD([id number]) EPI ID CSN Admitting Provider [id number] Arturo Ching MD([id number]) Attestation signed by Arturo Ching MD at 01/09/2021 9:29 AMI saw and evaluated the patient and reviewed Ms. Geronimo's note. I agree with thehistory, physical and medical decision making with the following additions,exceptions, and/or observationsThis is a pleasant 65-year-old gentleman with history of hypertension,dyslipidemia, coronary artery disease status post CABG in 1999 and 2012,nonischemic cardiomyopathy status post ICD placement, atrial fibrillation withwatchman procedure, COPD, TIA, carotid artery disease and tobacco abuse.The patient's last catheterization 2018 revealed patency of all 3 graftsincluding the UMANA to the LAD, the vein graft to the OM, and the vein graft tothe PDA.The patient presented with increasing dyspnea on exertion and symptoms ofcongestive heart failure to [facility]. He underwent nuclear stresstest which showed lateral ischemia depressed EF to 16% which prompted referralfor cardiac catheterization.Signature: Arturo Ching MDDate: January 09, 2021Time: 9:27 AM --Cardiology History and PhysicalName: Adebayo Liang Jr. Gender: maleDate of : 1955 Age: 65 yearsDate/Time of Admit: 01/08/2021 2:20 PM Code Status: Full CodePrimary Care ProviderReferring Physician: Ariela Juárez [facility] Complaint: Shortness of breath and chest pressureHPI: This is a pleasant 65-year-old gentleman with a PMH that includes CADstatus post CABG x2 (1999 and 2012), ischemic cardiomyopathy, ICD in place, CHF,HTN, HLD, TIA, COPD, hypothyroidism, atrial fibrillation s/p Watchman, carotidartery stenosis status post bilateral carotid endarterectomies and activetobacco use (quit 1 we ek ago). Over the last 2 weeks he has been experiencing worsening shortness of breathand lower extremity edema. His Lasix and medications were adjusted andincreased at home with little relief. He recently had a positive nuclear stresstest with reversible lateral wall ischemia [facility] revealed an EF of only 16% (2018 LVEF was 30-40%) He was scheduledfor an elective cardiac catheterization January 15. On 01/03/2021 he presented to [facility] with increasing andworsening shortness of breath, orthopnea, PND and lower extremity edema. Weightgain of > 10 pounds. He reports he felt like an"elephant " was sitting on hischest. He was admitted and treated for decompensated heart failure, started carmelo Lasix IV drip, Entresto was held and carvedilol was increased. Ruled out ene NH. He is transferred for a cardiac catheterization.BNP 6929, CXR revealed pulmonary edema. EKG: AV sequential PM. 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 Elizondo Heart block History of atrial fibrillation s/p WATCHMAN - 02/2018 Hyperlipidemia Hypertension Hypothyroidism Left carotid artery occlusion Myocardial infarction 2012 Osteoarthritis Peripheral vascular disease Pneumonia 06/2019 Presence of Watchman left atrial appendage closure device PVD (peripheral vascular disease) Sleep apnea CPAP Smoker TIA (transient ischemic attack) 07/24/2019 Unstable angina 1Past Surgical History:Procedure Laterality Date A-V CARDIAC PACEMAKER INSERTION CARDIAC CATHETERIZATION N/A 05/11/2018 Procedure: Left heart cath; Surgeon: Arturo Ching MD; Laterality: N/A; CARDIAC CATHETERIZATION N/A 05/11/2018 Procedure: Angiography Saphenous Vein Graft; Surgeon: Arturo Ching MD;Laterality: N/A; CARDIAC CATHETERIZATION N/A 05/11/2018 Procedure: Angiogram Arterial Bypass Graft; Surgeon: Arturo Ching MD;Laterality: N/A; CARDIAC PACEMAKER PLACEMENT CAROTID ENDARTERECTOMY Right 2019 CATARACT EXTRACTION EXTRACAPSULAR W/ INTRAOCULAR LENS IMPLANTATION Bilateral CORONARY ANGIOPLASTY CORONARY ARTERY BYPASS GRAFT 1999 and 2012 CORONARY STENT PLACEMENT several ECHO TRANSESOPHAGEAL N/A 11/01/2017 Procedure: Echo Transesophageal; Surgeon: Graham Hercules MD; Laterality: N/A; EP STUDY N/A 11/01/2017 Procedure: Ablation radiofrequency A-Flutter; Surgeon: Graham Hercules MD;Laterality: N/A; EP STUDY N/A 01/27/2018 Procedure: Implant Pacemaker Dual Chamber; Surgeon: Cam Foster MD;Laterality: N/A; EP STUDY N/A 09/19/2018 Procedure: Biventricular Icd Upgrade; Surgeon: Graham Hercules MD; Laterality:N/A; [employer] EXPLANT LOOP RECORDER N/A 01/27/2018 Procedure: Loop recorder removal; Surgeon: Cam Foster MD; Laterality:N/A; [employer] FEMORAL ARTERY STENT Bilateral IMPLANT LOOP RECORDER N/A 11/01/2017 Procedure: Loop insertion; Surgeon: Graham Hercules MD; Laterality: N/A;[employer] left carotid to subclavian bypass Left 09/13/2019 Dr. Odonnell LUMBAR FUSION VASCULAR SURGERY Left 09/13/2019 Procedure: LEFT CREATION, BYPASS, ARTERIAL, SUBCLAVIAN TO CAROTID HEMASHIELDGOLD #[id number]; Surgeon: Anton Odonnell MD; Laterality: Left; [place] 2018Social HistorySocioeconomic History Marital status: Spouse name: Not on file Number of children: Not on file Years of education: Not on file Highest education level: Not on fileOccupational History Not on fileTobacco Use Smoking status: Current Every Day Smoker Packs/day: 2.00 Years: 50.00 Pack years: 100.00 Types: Cigarettes Smokeless tobacco: Never Used Tobacco comment: now smoking 1/2 pack a daySubstance and Sexual Activity Alcohol use: Yes Comment: occ Drug use: Never Sexual activity: Not on fileOther Topics Concern Not on fileSocial History Narrative Not on fileSocial Determinants of HealthFinancial Resource Strain: Difficulty of Paying Living Expenses:Food Insecurity: Worried About Running Out of Food in the Last Year: Ran Out of Food in the Last Year:Transportation Needs: Lack of Transportation (Medical): Lack of Transportation (Non-Medical):Physical Activity: Days of Exercise per Week: Minutes of Exercise per Session:Stress: Feeling of Stress :Social Connections: Frequency of Communication with Friends and Family: Frequency of Social Gatherings with Friends and Family: Attends Hindu Services: Active Member of Clubs or Organizations: Attends Club or Organization Meetings: Marital Status:Intimate Partner Violence: Fear of Current or Ex-Partner: Emotionally Abused: Physically Abused: Sexually Abused:FH positive for CAD, HTN and HLDMedications & AllergiesAllergies:AllergiesAllergen Reactions Tolectin [Tolmetin] Hives Tolerates AspirinMedications:Medications Prior to AdmissionMedication Sig acetaminophen (TYLENOL) 325 MG tablet Take 2 tablets (650 mg total) by mouthevery 4 (four) hours as needed allopurinol (ZYLOPRIM) 300 MG tablet Take 300 mg by mouth daily ascorbic acid (VITAMIN C) 500 MG tablet Take 500 mg by mouth daily aspirin 81 MG tablet Take 81 mg by mouth daily atorvastatin (LIPITOR) 80 MG tablet Take 80 mg by mouth daily clopidogrel (PLAVIX) 75 MG tablet Take 75 mg by mouth daily DAILY JODI (THERAGRAN) per tablet Take 1 tablet by mouth 2 (two) times a day ferrous sulfate 324 (65 Fe) MG TBEC Take 324 mg by mouth 2 (two) times a day fluticasone (FLONASE) 50 MCG/ACT nasal spray 1 spray into each nostril dailyas needed for allergies furosemide (LASIX) 40 MG tablet Take 40 mg by mouth 2 (two) times a day levothyroxine (SYNTHROID, LEVOTHROID) 50 MCG tablet Take 50 mcg by mouth daily loratadine (CLARITIN) 10 MG tablet Take 10 mg by mouth daily Magnesium Oxide (MAGNESIUM OXIDE) 400 MG tablet Take 400 mg by mouth 2 (two)times a day metoprolol succinate (TOPROL-XL) 25 MG 24 hr tablet Take 1 tablet (25 mgtotal) by mouth daily nitroglycerin (NITROSTAT) 0.[address] 0.4 mg under the tongue every5 (five) minutes as needed for chest pain OLIVE LEAF EXTRACT PO Take 1 capsule by mouth daily [place] 3-6-9 Fatty Acids (TRIPLE OMEGA COMPLEX PO) Take 1 capsule by mouth 2(two) times a day omeprazole (PRILOSEC) 20 MG capsule Take 20 mg by mouth daily sacubitril-valsartan (ENTRESTO) 49-51 MG TABS Take 1 tablet by mouth 2 (two)times a day Scheduled Meds: allopurinol 300 mg Oral Daily aspirin 81 mg Oral Daily atorvastatin 80 mg Oral Nightly carvedilol 6.25 mg Oral BID [START ON 01/09/2021] clopidogrel 300 mg Oral Daily clopidogrel 75 mg Oral Daily ferrous sulfate 325 mg Oral BID with meals furosemide 80 mg Intravenous Twice Daily for Loop Diuretics heparin (porcine) 5,000 Units Subcutaneous Q12H MYKE ipratropium-albuterol 3 mL Inhalation RTTID levothyroxine 75 mcg Oral Daily Magnesium Oxide 400 mg Oral Daily pantoprazole 40 mg Oral DailyContinuous Infusions:PRN Meds:.albuterol, nitroglycerinROS: All 14 systems reviewed are negative except as stated abovePhysicalTemp (24hrs), Av.7 F, Min:97.7 F, Max:97.7 FBlood Pressure: BP: 101/61 Pulse: Heart Rate: 59Temperature: Temp: 97.7 F Respirations: Resp: 24Admission Weight: O2 Saturation: SpO2: 98 %Today's Weight: BMI: There is no height or weight on file to calculate BMI.No intake or output data in the 24 hours ending 01/08/21 1504Physical Exam General no acute distress Neck No JVD, bilateral carotid bruits appreciated L>RBilateral carotid scars noted Chest Non-tender to palpation Lungs Decreased. Scattered expiratory wheezes, prolonged expiratory phaseand a few rhonchi that cleared after cough Heart Normal S1 S2 soft SM Abdomen Soft, non-tender, non-distended, + bowel sounds Neuro AAOx3, no focal motor or sensory deficit Derm No rashes, or ulcers Vascular Pulses palpable and equal. Trace lower extremity edemaAssessment and PlanT is a pleasant 65-year-old gentleman with a PMH that includes CAD statuspost CABG x2 (1999 and 2012), ischemic cardiomyopathy, CHF, HTN, HLD, TIA, COPD,hypothyroidism, atrial fibrillation s/p Watchman, PPM, carotid artery stenosisstatus post bilateral carotid endarterectomies and active tobacco use (quit 1week ago). Presented with chest heaviness and decompensated HF. NH was ruledout. Transferred for a cardiac cath.1. Ischemic cardiomyopathy with a decreased LVEF to 16% from 30-40% (2019)Decompensated acute on chronic systolic heart failureNYHA Class III Class CClinically has improved. BNP 6929Continue Lasix IV with close monitoring of electrolytes and renal functionAccurate I/0, daily weights and low-sodium dietHF teaching-he reports compliance with low- sodium diet and medications.ICD is in place-has never fired per patient.Was on Entresto prior to admission-we will reevaluate post cardiac cathAdd spironolactone if BP permitsBB has been increased.2. Known history of CAD s/p CABG in 1999 and redo in 2012.UMANA to the LAD,SVG to the OM,diagonal,Ramus and PDA.Last 2 cardiac caths in 2013 in 2018 revealed no significant changes and patencyof 3/4 grafts.Recent positive stress test showing reversible ischemia in the lateral wall.No further anginal symptoms since admission to [place] on 01/03/2021ardiac catheterization tomorrow-orders placedContinue DAPT,BB and statin. Has been loaded with Plavix 300 mg.Check lipid panel3. History of atrial fibrillation/ Watchman procedure 2018: AV seq PM4. Hypothyroidism: Thyroid levels therapeutic. Continue Synthroid5. Carotid artery stenosis/CVA/right CEA and left subclavian carotid bypass byDr. Odonnell on 09/2019.Neurologically intact no focal deficits6. Tobacco use-1 PPD-quit less than 1 week ago-COPD.Counseled on smoking cessationContinue nebulizer treatmentsFollows with Dr. Marinelliature: Cara Geronimo, NPDate: January 08, 2021Time: 3:04 PM Name Value Range Interpretation Code Description Data Tavo rce(s) Supporting Document(s) ID Date Data Source [id number] 01/08/2021 07:55:00 [place] [address] PROGRESS NOTENAME: FERNIE Charlton ROOM#: [id number] OF : 1955 MR#: [id number] DATE: 01/03/21 OF SERVICE: 01/07/2021UBJECTIVE:He was admitted with acute systolic CHF, cardiomyopathy, coronary artery disease. He had a positivestress test. He is waiting for a bed to go down for a cardiac cath. He had a little bit of pressure onexertion today when just going to the bathroom. O2 was applied with relief. He has had a Lasix dripand that was stopped, BUN and creatinine had gone up to 32 and 1.4 so we stopped the drip. Discussedwith Dr. Elizondo. He will go on 80 mg IV Lasix bid, which has been started today.LABORATORY DATA:Laboratory studies today, white count is 5, H&H 9.7/30.9, platelets 144. BUN is 31, creatinine 1.1.Sodium 139, potassium 3.9, chloride 101.OBJECTIVE:VITAL SIGNS: Blood pressure 128/67. Pulse 60. Respirations 20. O2 sat 99% on 2 L. Temp 97.8.GENERAL: Patient is alert and oriented x3.HEENT: Pupils equal and reactive to light. Pharynx, tongue, and gums pink and moist. Tongue ismidline.NECK: Supple without lymphadenopathy.CHEST: Bibasilar rales. No wheeze or retraction.HEART: Regular.ABDOMEN: Benign. Bowel sounds are positive. /RECTAL: Not done.EXTREMITIES: 1+ bilateral lower extremity edema. Peripheral pulses equal and palpable bilaterally.SKIN: Warm and dry.ASSESSMENT/PLAN:Lasix 80 IV bid. Continue IV hydration without change. O2 at 2 L. Transfer to [facility] for cardiac cathwhen bed available. Continue other medications without change.DD: GRIFFIN Carlos 01/07/21 21:59DT: SSR 01/08/21 07:40DS: GRIFFIN Carlos 01/09/21 08:46 1 [place] [address] PROGRESS NOTENAME: FERNIE Charlton ROOM#: [id number] OF : 1955 MR#: [id number] DATE: 01/03/21 2 Name Value Range Interpretation Code Description Data Tavo rce(s) Supporting Document(s) ID Date Data Source [id number] 01/06/2021 11:25:00 [place] [address] PROGRESS NOTENAME: FERNIE Charlton ROOM#: Janak-1DATE OF : 1955 MR#: [id number] DATE: 01/03/21 OF SERVICE: 01/06/21SUBJECTIVE: He was admitted with acute systolic CHF, which is improved. He has cardiomyopathy with alow ejection fraction, coronary artery disease with a positive nuclear stress test. He has not had any chestdiscomfort since admission. It is much improved. His breathing is improved. He will go to [facility] for a catheterization as soon as a bed is available. He is currently stable.LABORATORY STUDIES: White count is 6.1, hemoglobin 10.4, hematocrit 32.2, platelets 141.Electrolytes are normal. Glucose was 102, BUN 32, creatinine is 1.2. Lasix drip has been stopped. Magnesiumis 1.8. Troponins remain stable at 0.02. He remains in paced rhythm. We increased his Coreg. He is toleratingthat well. Entresto was stopped per Dr. Elizondo and patient has been placed on Verquvo 2.5 daily, which he istolerating well.OBJECTIVE: Temperature is 98. Blood pressure is 116/78. Pulse 62. Respirations 16. O2 saturation is 96%on room air. His w eight is down 4 pounds. He was admitted at 195. He is at 191. Patient is alert and orientedx3. Pupils equal and reactive to light. EOMs are intact. Corneas and sclerae are clear. Conjunctivae arenormal. No facial asymmetry. Pharynx, tongue, and gums pink and moist. Tongue is midline. Neck is supplewithout lymphadenopathy. No thyromegaly or goiter. Jugular venous pressure is at clavicle. Chest hasdecreased breath sounds, no wheeze or retraction. Heart is regular. Abdomen is benign. Bowel sounds arepositive. /rectal: Not done. Extremities show trace lower extremity edema improved, +1 bilateral lower extremity edema pedal, ankle. Peripheral pulses equal and palpable bilaterally. Skin is warm and dry.ASSESSMENT/PLAN:1. Acute systolic CHF, improved.2. Cardiomyopathy.3. Coronary artery disease. No chest pain. Troponin is negative. Awaiting transfer to [facility] for cardiac catheterization when bed available.4. Continue current medications.5. Get follow-up chest x-ray in the AM.DD: GRIFFIN Carlos 01/06/21 22:30DT: ROB 01/06/21 23:07DS: GRIFFIN Carlos 01/09/21 08:46 1 Name Value Range Interpretation Code Description Data Tavo rce(s) Supporting Document(s) ID Date Data Source [id number] 01/06/2021 09:24:00 [place] [address] PROGRESS NOTENAME: FERNIE Charlton ROOM#: [id number] OF : 1955 MR#: [id number] DATE: 01/03/21 OF SERVICE: 01/05/2021UBJECTIVE:He was admitted with acute systolic CHF. He has history of cardiomyopathy with ejection fraction of16%. He had a positive nuclear stress test, was to go for cardiac cath January 15, [facility] with short[facility] of [facility], chest heaviness. Serial troponins were negative. He wasplaced on a Lasix drip. He is -1600 approximately. He has no further shortness of breath. He is nothaving chest heaviness. Serial troponins were negative. Plan transfer to [facility] in a.m. dependingon bed availability for cardiac cath.OBJECTIVE:GENERAL: Patient is alert and oriented x3.VITAL SIGNS: Blood pressure 107/63. Pulse 60. Respirations 20. O2 sat 97% on room air.HEENT: Pharynx, tongue, and gums pink and moist. Tongue is midline.NECK: Supple without lymphadenopathy.CHEST: Decreased breath sounds. No wheeze or retraction.HEART: Regular.ABDOMEN: Benign. Bowel sounds are positive./RECTAL: Not done.EXTREMITIES: Mild bilateral lower extremity edema. Peripheral pulses equal and palpablebilaterally.SKIN: Warm and dry.ASSESSMENT/PLAN:1. Acute systolic CHF, improving. BUN up slightly now. Patient reports feeling alright. We will get follow up chest x-ray. Stop Lasix drip. Plan for transfer to [place] in a.m. for a cardiac cath. Continue chloride.2. History of anemia. Check iron level.DD: GRIFFIN Carlos 01/05/21 17:16DT: JULIANE 01/06/21 09:13DS: GRIFFIN Carlos 01/09/21 08:46 1 Name Value Range Interpretation Code Description Data Tavo rce(s) Supporting Document(s) ID Date Data Source [id number] 01/04/2021 09:24:00 [place] [address] PROGRESS NOTENAME: FERNIE Charlton ROOM#: [id number] OF : 1955 MR#: [id number] DATE: 01/03/21 OF SERVICE: 01/04/21SUBJECTIVE: He was admitted with acute systolic CHF, cardiomyopathy, coronary artery disease. Hefailed a nuclear stress test. He was scheduled on January 15 for a cardiac catheterization [facility] with chest heaviness and acute systolic CHF. He has been placed on a Lasix drip. He is lessshort of breath today. Discussed with Dr. Elizondo and have stopped Entresto and have started Verquvo oncedaily. He had a 7-beat run of V-tach. We have increased his Coreg to 12.5 mg p.o. b.i.d. with food. He has hadno chest heaviness today. Magnesium level is 1.8.OBJECTIVE: Blood pressure is 122/70. Pulse 60. Respirations 16. Temperature 97.6. O2 saturation is 95%on room air. Patient is alert and oriented x3. Pupils equal and reactive to light. EOMs are intact. Corneas andsclerae are clear. Conjunctivae are normal. No facial asymmetry. Pharynx, tongue, and gums pink and moist.Tongue is midline. Neck is supple without lymphadenopathy. No thyromegaly or goiter. Jugular venouspressure is at 2-4 at 60 degrees. Lungs have decreased breath sounds, bibasilar rales. No wheeze or retraction.Heart is regular. Abdomen is benign. Bowel sounds are positive. /rectal: Not done. Extremities: 2-3 +pedal, ankle, pretibial edema. Peripheral pulses equal and palpable bilaterally.ASSESSMENT/PLAN:1. Acute systolic CHF. Patient is a net negative about 1800. Increase Coreg. Continue Lasix drip.2. Coronary artery disease. Plan transfer on Wednesday for cardiac catheterization. Troponins remain negative at 0.02.3. Continue other medications without change.DD: GRIFFIN Carlos 01/04/21 19:10DT: ROB 01/04/21 21:17DS: GRIFFIN Carlos 01/09/21 08:46 1 Name Value Range Interpretation Code Description Data Tavo rce(s) Supporting Document(s) ID Date Data Source [id number] 01/04/2021 02:13:00 [place] [address] HISTORY AND PHYSICALNAME: FERNIE Charlton ROOM#: [id number] OF : 1955 MR#: [id number] PHYS: Jon Elizondo MD, P C DATE: 01/03/21CHIEF COMPLAINT: Shortness of breath.HISTORY OF PRESENT ILLNESS:This is a 65-year-old male with a history of CHF, coronary artery disease, cardiomyopathy with arecent positive nuclear stress test who is scheduled on January 15 for a cardiac catheterization with at [facility] in [place], history of cardiomyopathy with left ventricular ejectionfraction of only 16%, who has had increasing shortness of breath, especially for the last few days andhe has become orthopneic with it. He came to the emergency room. Upon arrival, blood pressure mcm313/71. Heart rate was 63. Respirations 26. O2 saturation was 100%. Temperature 97. He iscomplaining of heaviness. EKG was done which showed paced rhythm.LABORATORY STUDIES:White count was 6.3. H&H was 10.2/33.2. Platelets were 146. Sodium was 143, potassium 3.8,chloride 104, CO2 25, glucose 122, BUN 26, creatinine 1.2. Alkaline phosphatase was 266. BNP vpe5246. TSH was 3.56. T4 was 1.37. Magnesium was 1.9. Troponin was 0.02. Chest x-ray was donewhich showed congestive heart failure with interstitial edema, small right pleural effusion, right lowerlobe consolidation which is probably compressive atelectasis. A CT thorax was done without contrastwhich showed moderate bilateral pleural effusion, mild compressive atelectasis both lower lobes, priorcardiac surgery, a moderate amount of free fluid in the upper abdomen and a gallstone. Patient wasgiven 80 mg of IV Lasix. He had approximately 800 cc urine output while in the emergency room. Hewas less short of breath. He had no further chest heaviness. Assessment was done and patient will beadmitted to the medical floor to the service of Dr. Elizondo observation status for acute systolic CHF,cardiomyopathy, coronary artery disease.ALLERGIES:TOLECTIN.SOCIAL HISTORY:He is . He did used to smoke a pack a day. He rarely drinks alcohol.FAMILY HISTORY:Reviewed and was noncontributory.HOME MEDICATIONS: 1. Allopurinol 300 mg p.o. daily 2. Ascorbic acid 500 mg p.o. daily 3. Aspirin 325 mg p.o. daily 4. Atorvastatin 80 mg p.o. daily 1 [place] [id number] HISTORY AND PHYSICALNAME: FERNIE Charlton ROOM#: [id number] OF : 1955 MR#: [id number] PHYS: Jon Elizondo MD, PC DATE: 01/03/21 5. Claritin 10 mg p.o. daily 6. Entresto 49-51 mg p.o. twice a day 7. Ferrous sulfate 324 mg p.o. twice a day 8. Flonase 0.5 mcg actuation nasal spray, 2 sprays each nostril daily as needed 9. DuoNeb 1 vial b.i.d. via nebulizer 10. Lasix 40 mg p.o. b.i.d. 11. Levothyroxine 75 mcg p.o. daily 12. Magnesium oxide 400 mg p.o. daily 13. Multivite 1 p.o. twice a day 14. Nitroglycerin 0.4 mg sublingual p.r.n. chest pain 15. Burton leaf extract 1 tablet oral daily 16. Omeprazole 20 mg p.o. daily 17. Toprol XL 25 mg p.o. dailyPAST MEDICAL HISTORY: 1. Congestive heart failure 2. COPD 3. Coronary artery disease, scheduled for catheterization on 01/15/21 after having positive stress test which showed a small lateral wall perfusion defect which is reversible, consistent with ischemia in the lateral wall. 4. History of cardiomyopathy, 16% EF. 5. History of cerebrovascular accident. 6. History of hypercholesteremia 7. History of hypertension 8. History of hypothyroidism 9. History of sleep apneaPAST SURGICAL HISTORY: 1. Watchman filter placed in February 2018 2. Lumbar disc surgery 3. Left subclavian carotid bypass by Dr. Odonnell on 09/30/19 4. Carotid endarterectomy on the right 5. CABG x2 6. Cardiac stents 7. Cataract surgery on the right 8. Deviated septum repair 9. Pacemaker/AICD insertion 10. Right femoral artery bypass 2 [place] [id number] HISTORY AND PHYSICALNAME: FERNIE Charlton ROOM#: [id number] OF : 1955 MR#: [id number] PHYS: Jon Elizondo MD, PC DATE: 01/03/21REVIEW OF SYSTEMS:N o complaint of headache. No blurred or double vision. No fever, no chills, no tinnitus. No hoarseness. Nodifficulty swallowing. No lightheadedness. No vertigo. Cardiovascular: See HPI. Respiratory: No chroniccough. No sputum production. No hemoptysis. He has been orthopneic. No wheeze. Has ANANYA and wearsCPAP. GI: No nausea, vomiting or diarrhea. No hematochezia. No melena. No complaints of abdominal pain.: No hematuria, dysuria or frequency. Musculoskeletal: No joint redness or swelling. Endocrine: Nopolyuria, polydipsia, polyphagia. Does have a history of hypothyroidism. Hematological: Is slightly anemic.No history of easy bleeding or bruising. Neurological: No paresthesias or paralysis. No seizures.Psychological: No anxiety, depression or suicidal ideation.PHYSICAL EXAMINATION:GENERAL: 65-year-old cooperative male.VITAL SIGNS: Blood pressure is 132/75. Pulse 66. Respirations 20. O2 saturation is 100% currently on roomair. Weight 195 pounds. Height 69 inches. Patient is alert and oriented x3.HEENT: Pupils equal and reactive to light. EOMs are intact. Pharynx, tongue, and gums pink and moist.Tongue is midline.NECK: Supple without lymphadenopathy. No thyromegaly or goiter. Carotids 2+ without bruit. Jugularvenous pressure is at 6-8 at 60 degrees.CHEST: Bibasilar rales. No wheeze or retraction.HEART: Regular.ABDOMEN: Benign. Bowel sounds are positive./RECTAL: Not done.EXTREMITIES: 3-4+ pedal, ankle, pretibial, thigh edema. Peripheral pulses equal and palpable bilaterally.Skin is warm and dry.IMPRESSION/PLAN: 1. Patient will be admitted observation status to the service of Dr. Elizondo for acute systolic CHF, cardiomyopathy, coronary artery disease. The patient will be placed on a Lasix drip at 10 mg/hr. Will start Coreg 6.25 mg p.o. b.i.d. I&O. Vitals q 4 hours. Troponins q 6 hours x4. 2. History of hypothyroidism. Continue levothyroxine. 3. History of anemia. Continue iron. Get iron level. 4. Patient will be admitted on telemetry to the service of Dr. Elizondo to the medical floor.DD: GRIFFIN Carlos 01/03/21 21:29DT: ROB 01/04/21 02:13DS: GRIFFIN Carlos 01/09/21 08:46 3 [place] [id number] HISTORY AND PHYSICALNAME: FERNIE Charlton ROOM#: [id number] OF : 1955 MR#: [id number] PHYS: Jon M Caro, MD, PC DATE: 01/03/21 4 Name Value Range Interpretation Code Description Data Tavo rce(s) Supporting Document(s) ID Date Data Source [id number] 01/09/2021 10:33:21 AM EDT [facility] Name Value Range Interpretation Code Description Data Tavo rce(s) Supporting Document(s) CHOLESTEROL @ 122 mg/dL (0-200) [facility] TRIGLYCERIDE @ 61 mg/dL (30-200) [facility] HDL CHOLESTEROL @ 52 mg/dL (>40) [facility] PER NCEP ATP III GUIDELINES:RESULTS LOWE R THAN 40 MG/DL ARE SUGGESTIVEOF INCREASED RISK FOR CORONARY ARTERYDISEASE. RESULTS > OR = TO 60 MG/DL ARECONSIDERED A NEGATIVE RISK FACTOR. CHOL/HDL RATIO 2.3 RATIO [facility] INTERPRETATION OF CHOL-HDL RATIO CHD RISK FEMALE MALEVERY HIGH >8.3 >14.3HIGH 5.6- 8.3 6.7- 14.3AVERAGE 3.7- 5.6 4.0- 6.7BELOW AVERAGE 2.5- 3.7 2.7- 4.0PROTECTED <2.5 <2.7 LDL CHOL (CALC) 58 mg/dL (<130) Lab [facility] PER NCEP ATP III GUIDELINES: OPTIMAL < 100 NEAR OPTIMAL 100 - 129BORDERLINE HIGH 130 - 159 HIGH 160 - 189 VERY HIGH > 189 ID Date Data Source [id number] 01/09/2021 07:02:17 AM EDT [facility] Name Value Range Interpretation Code Description Data Tavo rce(s) Supporting Document(s) SODIUM 139 mmol/L (136-145) [facility] POTASSIUM 4.4 mmol/L (3.6-5.2) [facility] CHLORIDE 103 mmol/L (100-108) [facility] CO2 29 mmol/L (22-31) [facility] ANION GAP 7 mmol/L (7-16) [facility] UREA NITROGEN 36 mg/dL (7-24) H [facility] CREATININE 1.26 mg/dL (0.80-1.30) [facility] BUN/CREAT RATIO 28.6 RATIO (10.0-20.0) H [facility] GLUCOSE 98 mg/dL (70-99) [facility] CALCIUM 9.1 mg/dL (8.4-10.2) [facility] GFR 58 ml/min/1.73m2 (>59) L [facility] GFR ( AMER) >60 ml/min/1.73m2 (>59) [facility] GFR INTERPRETATION [facility] --NORMAL KIDNEY FUNCTION OR MILD DISEASE - GFR >OR= 60CHRONIC KIDNEY DISEASE - GFR 15 - 59RENAL FAILURE - GFR <15 Est. GFR calculation based on the MDRDstudy equation, which assumes a steadystate for creatinine. Est. GFR should notbe used for medication dosing. ID Date Data Source [id number] 01/09/2021 06:33:53 AM EDT [facility] Name Value Range Interpretation Code Description Data Tavo rce(s) Supporting Document(s) WBC 5.0 10*3/uL (4.1-11.0) [facility] [place] RBC 3.03 10*6/uL (4.60-6.10) L [facility] HGB 9.7 g/dL (13.5-18.0) L [facility] HCT 29.6 % (41.0-53.0) L [facility] MCV 97.6 fL (80.0-95.0) H [facility] MCH 32.0 pg (27.0-32.0) [facility] MCHC 32.8 g/dL (32.0-36.0) [facility] RDW 17.8 % (10.5-14.5) H [facility] PLT 132 10*3/uL (150-450) L [facility] MPV 7.7 fL (7.1-10.7) [facility] ID Date Data Source [id number] 01/08/2021 04:48:00 PM EDT [facility] Name Value Range Interpretation Code Description Data Tavo rce(s) Supporting Document(s) SARS coronavirus 2 RNA [Presence] in Res piratory specimen by LUIS A with probe detection NOT DETECTED [facility] This lab was reported by [facility]. ID Date Data Source [id number] 01/08/2021 11:34:31 PM EDT [facility] Name Value Range Interpretation Code Description Data Tavo rce(s) Supporting Document(s) SPECIMEN DESCRIPTION [facility] COVID19 RESULT (NDET) [facility] THIS ASSAY AMPLIFIES AND DETECTSTHE TARG ET RNA USING REAL-TIME PCR.TESTING PERFORMED ON THE [facility] COMMENT [facility] UNDER AN EMERGENCY USE AUTHORIZATION(EUA ) FOR THE DETECTION AND/OR DIAGNOSISOF THE VIRUS THAT CAUSES COVID-19.NEGATIVE 2019_NCOV RT-PCR RESULTS DONOT PRECLUDE 2019_NCOV INFECTION ANDSHOULD NOT BE USED THE SOLE BASISFOR PATIENT MANAGEMENT DECISIONS. FIRST TEST [facility] EMPL[facility]ED IN HLTHCARE [facility] SYMPTOMATIC [facility] [place] DATE OF SYMPT ONSET [facility] HOSPITALIZED [facility] ICU [facility] CONGREGATE CARE SET [facility] ID Date Data Source [id number] 01/08/2021 04:56:25 PM EDT [facility] Name Value Range Interpretation Code Description Data Tavo rce(s) Supporting Document(s) MAGNESIUM 2.4 mg/dL (1.7-2.4) [facility] ID Date Data Source [id number] 01/08/2021 04:56:25 PM EDT [facility] Name Value Range Interpretation Code Description Data Tavo rce(s) Supporting Document(s) SODIUM 139 mmol/L (136-145) [facility] POTASSIUM 4.4 mmol/L (3.6-5.2) [facility] CHLORIDE 103 mmol/L (100-108) [facility] CO2 31 mmol/L (22-31) [facility] ANION GAP 5 mmol/L (7-16) L [facility] UREA NITROGEN 32 mg/dL (7-24) H [facility] CREATININE 1.27 mg/dL (0.80-1.30) [facility] BUN/CREAT RATIO 25.2 RATIO (10.0-20.0) H [facility] GLUCOSE 75 mg/dL (70-99) [facility] CALCIUM 8.6 mg/dL (8.4-10.2) [facility] GFR 57 ml/min/1.73m2 (>59) L [facility] GFR ( AMER) >60 ml/min/1.73m2 (>59) [facility] GFR INTERPRETATION [facility] --NORMAL KIDNEY FUNCTION OR MILD DISEASE - GFR >OR= 60CHRONIC KIDNEY DISEASE - GFR 15 - 59RENAL FAILURE - GFR <15 Est. GFR calculation based on the MDRDstudy equation, which assumes a steadystate for creatinine. Est. GFR should notbe used for medication dosing. ID Date Data Source [id number] 01/08/2021 04:11:03 PM EDT [facility] Name Value Range Interpretation Code Description Data Tavo rce(s) Supporting Document(s) WBC 4.7 10*3/uL (4.1-11.0) [facility] [place] RBC 3.12 10*6/uL (4.60-6.10) L [facility] HGB 9.8 g/dL (13.5-18.0) L [facility] HCT 30.6 % (41.0-53.0) L [facility] MCV 98.0 fL (80.0-95.0) H [facility] MCH 31.4 pg (27.0-32.0) [facility] MCHC 32.1 g/dL (32.0-36.0) [facility] RDW 17.8 % (10.5-14.5) H [facility] PLT 123 10*3/uL (150-450) L [facility] MPV 7.5 fL (7.1-10.7) [facility] ID Date Data Source [id number] 01/08/2021 03:02:59 PM EDT [facility] Name Value Range Interpretation Code Description Data Tavo rce(s) Supporting Document(s) [facility]KSHo0rNxJCNlPvg5HyJfCoFRZaRW0yxiu6J9M9mLNlR3TpbIUwd7ucJ6UdO8OzJWGrFCCUGQ3ZrJLp jb2 [file] HcbVH1zKk10L0kcT3d34XQ7ayU016801op3itpkAZ+ kxVExzr084xOf8C0l2D8hWxhCmT4Aw/SHl7U6N9uSSot60x3iaDD9+LG97HhwI1AnK92rBGabzLNi0G2 Pk/Dvb29pZ843pqyDksDlwfbdoS2V3Q6QTGrM8ctzhPfnWKk31H7f5Upg8QY/T1OIgtvTJ7vKUhEw8Jm Q7jJ5+hAj3DFUlx0ovBcYe3y3w5IqK023M64hwB/OK +JZVRDKZfatdzhS8N3C1Nt/RNE4+F8PL+baG1TW8Zw6/TJ+D9eSfmRivdnZ/Sauvhaje36sPD33wm2/e a8JH06Wd67tqPoI+K7R+D6LLeJn/wdvF7v8xTuRJ33el2vS6xXvuRjvW3Xf++Sp316cy0qYVq5yPMjh+ Dgb4Pl78MDO47K2cBqji2W4e6W1t7dhVV/eyS+e/qU 3sz49SEfz7wri6lam9kml5ah8I0x4w0jtecVhgsM3XaAFy/gbxMraLGP4nNscYNDiv9jruNCNDwYrKEm Yc5ZwHtpwnD9/eKOqGQSj8egWU45YloXavV7d6lkoiZl8c9kGZfWJyKH3Fs6kNWIG2Uwdiqv4TZNEpoH 3LWb7COV4Jp8HsxQYnDpcZP4G+mLsgFOuC0icatcGi SKyL0gg3sn+D9e5iRzw1fwSii/1BmqgayxlrI1r4JgJiKsttouW5l5b+fJM6gGjH9hv2KF++7iuPeR/W dW8ywtMEGv6v8zwnmiy6qC/ZfQ9kttlQ2rL+5bETbIvOv6R+lw3QFZQqOt1ls+tZN+wryGUY8zP/rLFl 22SXsmnOgi+0SF1Vy1qi/k3PP4xm1j+toEd0LQ0BnN Jo07pWi12OsbnxH0OVctg6s3tz2mN/ngoNtaKpMjb1Tk0CKtpptS3QjsO/oIhixt9SqTAYC/uMwv/gkn 867L/AKpe8dIScPnKm9eKuakuaVFqRmlaV6BEdUiLHDjFBwfX6H0WF02WA2BmP8E3R6Hr9O/WtWJdbXc wP037rQ85Jdm4B977rpBFBwkRIhpOl6B8r/hand compositor/KPdf [file] Qo0FT4pnjQX0JpIen+Cl36g284/o9nt72w1/n1616G tD89ImZ6j0tmE48kswc07W8LSzhOabBdUj/Nadrtjzb5wSg0ckmvxncBZaVb5yFXpDNMhuiuai2Vg2Cz xySQ2sownZqwDA39X2Mz5GYcy73EhpoFUJVWtWvQgiz9J+tP6h9Q/VZhE29LIeFIXMkcdyYIDNjFHiYq tyb4heIWB1SkeAlILYRBjc39KYYjDapVPMkWFf9CBX nT9ayY4F9jCEAAQRj4AF6B3eH02gILmOZpciIB70wv+tQtQBs6NlefMzz5VLUgztE7yejuNel1F2o8tL 6m4/NcxPvvWhrU8+w2rwkcaaiaPN0Y7xFrjlnsVCmpY6rNqOoJzv+uV310exMCt4hNtiIA8L3+QR482u l3cK1YQttP/rPeWEeAWBI3ayKz82Z6C5ivjeO21gta ihEhQtt6IGrDdJjcfsqU5TIW/5XXdVBw7T+ibW9YM02rzD6M+5+dxBeBaNhOSEin3yl0MVbGeYHXmJp+ 2EC9Psr03MLrANRaamY436yVCdYBbPx1KNHsFl/hVvUuCW1yjgZaTSBDzJnulK0qRUm7majhKN1Pkzag vc6UN1rTq5I6sPxGnHdMiogHN9bDFUdm6M8roUUW67 1TJFIozAT9pXPpXPIrRid9ZoRGn2j9kZDkbyjJEo6G/OdVVw99j9a6mSpfRFk10TUJ529kjVRL5AlYmO c3NcKzWOuJcNlR0PTGcQ37bUCmY/swc0mWXLgfhe27wY+VHZQJPdUV45E78t75ZGnMZDC7UoQnaqZYbd 1OkUPppkAwLFjVd9WS1WWImnNiQFpRRbYIYFi8RrSZ AyuICBzWXwhL+TVyNuMdG9g30SZvs5q/eXXVM/Ckh6edgS4LFQ/O4s98EXxLVUXsDEn4+GnTFg/TbsjE Klw1JmUM0/DDkhoSci9IOxPwgTU0MRWpcoj/car4lQAP+eGJZ+G/CJGpN9wiwC153hx85HEgTlyMqTV/ 375Uj538o4TXNYVPJF1zzgRVXuOztD+A3ZAtaY95Z4 m8Hzc04u1l0Z1e6dfx02LeErN8YINmCfrR6sTh0D9rJeu6JUWJb0rYPwBhXVvynBzFkMXPo7GlNJVaRy aEofIBRpKehNkAms6pHrqCbP0JRNHLsEZd4Wg02IsFin/0kiAkNOBbRlTFUg73q3FsHuuoBggvu3oEEX /zn7OQLSiOR7E//x2bxyFEQQaAfWc1fQhb15Qdb0Y1 OyinlSGyoxwVGMENzf1Sb9LsxlDbK49h/TbhMeuMv0pfW++KP19enM2/E2F/PRMvMp1KN/YYhgLpQq8O +gkEIZLMpgUQaLMpCueIAOncKP+r5EWyEvIMWc8R38lQX9hRmiw02B7uCeR2BkgTLhIj7+TXriATgOqC on7qguexnwYauazwRTjmv6To5hSqJGLuFVY4qilyF6 fKSaHWRsuNv35KxULAqDS1fEN3+YqcSVRdRco9bTD4iRyQnP83DfIrFxa2/5599/vcu6J//117uOn+TK 4D1Pz1vzwPyQkYxghfkQbBuVMS9PkflmgbwS62exEmJ3aigGrS6tkNUyN2riBriP1tvTBtH7vjECxN6y uMGjq7jfnHoa4rcjovD8nxmeKN4gd1pM70tbIpb1vr qVoa8gfIfpA1lmJucP8afPfmA6ehUssB1sbAdrh8jUK6Q0MesRG9Aw6r5w/+zJt74tfPJ7c4PUvJZuWD cm902+L7WuFXJGK6yq0QIooHeBjOgmrxg6QnQ2poXTcI7qmFJoC7hgiZxU0txttsO4wnufBh9mn1mA66 csHyJ8e6nCvr3umOOoE4trThnZ1xgXhrL0ihNhlL8i fLuhD6kvokb37wtymn900epsL511k7yE765fwyyvM9GldJC3Cc4T6bdyblohWaDbykRC5vQLKvwJgsAl IbRszuclIzRk5qC2OwpihWE1l5XylDHkG1eobMbA9jowexJ8egsyHW8ks1uL33frGjL2x0iHpq1nrKFd T4wrVdcZ9enQwpO3gaMzuT7irEumD5daktqY8ppbuh 747ucdX915w2wC553xwye1d2egqw0ktEfeBjvDhRZ3Ck1m+p9/+aPl+zkYqL7yKuOPk6+u/SCd+Nfq8l Ouw5SR7DM3nfOo7Mjbey19ZpgU/M242pMc2+I47Zsgb4qp27X0G/VOy/QC/wJ+g9/197Ero9NpyoCF6Z E5Vmy2292C/wC572U15Vb0b2uKUXlx9X/Az+xXncAv qGtaRcE35eG512/2PjUjuQklReGhdv4IR0Fj9yH3Xv1a8c/33uhPii/eUI6h/YMcpkL5Z/wT+AU8+ts2 2Dmxmf1nckt+mnO7t4E4N3xVie1vB4Y/+O5eP/6WapOv98Zjo34bu5fe8dMzL12R33n9IhoIz/G4jt2F f/c8rVtGEsirL85Wl8+84gWX8WJvZ5i7q27HdkEa/f O8aV6LIBBws8t5jT/tm0WmDT7/g8ZErflbxG/wz5S/+feNMhfwG/W9a04v5G+BT/wLL7nYEUfO7T4A+J pyGPi+v3U9Z98m7EeBDY++r/AD/APl+ThwfCXl79u082OXYkk+S141Zxi+5wM1Mt7raXy8t+UxFu3uvG yh2fpD3/nfkJT9EB5wcSw5s+ae0Z/neu6R9BZkjgn7 7V41ulOJ9cwlrJiT4nIwhxk+23U6NZ51Ewm0y9fBpA6G03es8EekR78juEBcaOdfDzGBMopSzyO/UM4G F2wvikT9X3boQD7bUOu3nNVqat78iD/vSacctsbzUjq/04UQ3dgoX+N54/tufN+X5qkJpf+v/H3f73v1 37At0lk8lAlDoF/fkwa+Al+Yb3F71A3/JZydvfjjRe fYU7mI02/Z5N/7Jf0azMGz+An829+XvynyYJHH6es5/Dc4bSnaAx0+WH72s9gTTa6559dTcmzUP239dw vwdvLDT/xKly4xcAzow5k+6MD/6g5J2BH/q1+tKr+fo28Pt00/LPsbr+BD7RjkjjqxD86ipsa15DjGia c3v+DO9B08PfoxzoQclkPY10C0sFYs5wGc3t5+RAxj /81Xfer4r8hVrh21n1t2LJ40MU+Y3/6OeP3i+gbMU44vW1khZBl2UThVj42Pl6J615uYuaOe1SWsegfB f/q3jaBoh/y5o7zQj/3u5vh4ozu0+LptDYa5171b+uxPXS++ju7E80AfaNm36pdu4op94M8ysvC1r43F /VFrplHOQjnr/tz8AGjnB+/2UTZOOS921x/bN8FQ0T cosh1AyuRUWVueOH7fRCfS2kBneKF+PCn9QMOX8TQk/Av8C/iN8r2/Gp/Qq2IbIP+KdAG+AO/9feLQNt gr1BynxOnbjr6LtF0O1EP5pFaS13tD4/75dHSyvmj0JAgqHV960B67Az5Fq533+V2/pmym83Yt9xsOHV g83FtFFYdkiGW2+L2/Fegsc3x96HIgq0503fDa1sUu mfb+tki/zX8Dnl3a1kYQ9vseAdp2q4mRprcnId38e/XE9avm/19/Nuvi5gsPuz4+7W/RboS5PPSaPxdw Tvrt7+Ex4N/+1hFpx/qtby5pfmxz8mw9iSlfym4ScCkThe6+7W/PuZQ2gmIPI0jf/kRGtfGd8R6mfXWO v3oLnFmGZ3+B9/5qfLp+LQX00xiS4Z/gf/k5zFswu3 LgX+BfwHt/Mewiyq0Pt+aFK20PW08ysskUvA6OgIh0zdXluw4lFJe71V8e/AjxQ5R2w/1zyaEeQ9M/IN tvZgu0dsXBphp0ydxOvy/C7Om6lhtViVeMVpr5nt5jo9rjH+6K2swPw/Lv2EK/Ej7X5/bk/4pQw4cWba rcB6qWkvvd/c/6k8/Y6/mDz9Bd/bln6MP+2DN0YH/q mdDdl3rlQ2L9T+/3u83XSpvMuhJp70oEl82b1R6r7n1pcf77W93/uteQGkbBxV7ttDWiJyyY6/2Nury/ +t1jZ356XT7J1D3Cb0Wibv4yc0uoUuG+JL/jB7KrpFdtI/hK6EXIc+jAipqtV8B20Ok1g6uH7U/gJ/jR E0vsGy6J/wT9jcHw+9VJA1+SX/YrlS/7lcqU/Sr40d +G/jb0t6G/Df1t+C3gO332ooziS1Lwqg8H2tjQ6xcCt/yS9cVsljqS5yWl1puSq8/Nsk6N11SsfT/A95 xfPe2T/eAlsND1n4D/gE/7pD+yyQuO541438T/577eP04dJkDIRWc+61eHJ+3P/sJq7ecgaR/cY9KsWC Y40jO2fA/+Uezjr8G5vsxVdxP3cmeTGvJm2PghrPV2 Kjmq70utCJDEf0l/mLq2gnO4BC7erFYE/g4D3sA/OT7OeCCm7Cgq9Nj2cM/Xr05dO/HzSf6J/k70d6K/ M+3t/fxe3spKNW0gbg/HnR4P5Ryw32B/J83lbIrrQ5q8el7rI/I1boHTAV4+oe6M72ezgwknr0ZLa/Es +1Nj64hvbC6TlSE/oXz0F/artvD/Gskj84jQ4u1OLi gl/TGgPENnWF1Fk4z/V/Hn4JY1sviT5FriT3DyZEaC/Fm6y066Wzmlv58gJ0g0HSiC7Xx/znrany50ls b7lYl/pp6zJ/AL/MpllHC09e+323TuZ02pux7BVVY6uY/2J+2T/WnAN/CIgnFrVu6Ol7bPqcwHmZw2/H PfKIrs6tC0F/Ab/DvbI/vVSQOP/pa0b/uTbyuq5zLs G/g7ykd/Xb+2xUXEf8pcFS88R8Nl/HO9FmR4+VGj7e2Bz7doM/S4a5JbZFYK5grUIKGs08Xse/DHgWEz 5dTjOE1IjfPn+9vF4/3YtfYu8YsHvde1dj54MD/+wn7VYb/qsF/1hu8r+0EN9pqV+2Vl0w5wW9kj2t40 JhvGs+xRJExlU2xAt34EvcFnG6x+VYSfwOf/qEu/Cp 6FcjbwO/qsQeivQhz2ngt5N/OCSIz2plvk/fief97Ncc4en4kzPrmAdaJ1aJ011ccuVV8EcxgohneaKI /5Rd0fSSo7xgG8V4ugEg4c0k/h+xrmr2H+of0vAtmnBkrSmW3H4/5f/F3eTU/gZb8Sv/+PTtrOnrfLfu X/jm31rz6V2JjtQ+sItnYqp5Q7UR9WL+DNofnr+tWM vG9/t//X+odpxihz9Y8brygh2e/yKrJ60D8lwipi38/u1gh+y6q28ul0pdbl/zPw3GW1ds0tY2i9hT4s 42Gsa5/9I4BtBwTyW/f3hqh0or3xj6vIO/TXdXPvSP/4YmVLnOo26Bluh/ZiiV9dO3yoOotOC+sVzgc7 cah72RBR/P/1vleQBjLz18V+NYDq60bsP23ykjjJ0m 1a25W0Z2HdMce+gF/7QXF6uRDrnj2xkzCiEchG1fs2tnhx/lLujEPXrw4+z4/8kVzYJ/2NXNhq/IncGb fSr04a/Jc5Qg4Yzk3chh7MckqgOGKxi3SDYr+qM9tVJx+vxrPrVyfdwe/8mKLT3JwR5e9sMAYz8jonE9 jHXhbEBcv8ao3iqp+X31/CBY8/zLe8oAc9N1gLq9PG y7wNeO+vr9X+Ho0hcp5X9hPbDltAk9anrF3/i7nU1DQ1ym9zKwl0ddtx+xt5N/Bun/RnB/3nWgF44ZY+ 5i3sh/1r9xmnHyjNZ7TvJP8Xr5p3CfyHdAqF647ji8ebWF6sD7g8w+Lx/okzgp9mEhsQKYk/0cinJKn2 B25hX/O6pOJy0huuAh47c0jgh6ku+3uFrsr5/rItbM j+rZ8Vd8o+nb6xoa8f9jBl/ha3n/cxwjqP7zL3t58itL/tbxnCv/1rUkm9NrkeOwTx4ba5z0kjEZER6y caRpo8NhRLa/3qpN/+Gx4C138DpaA/gb8D//b30Rhz/amIfqZNK4uvoJZLudp0pUllnVh/Yn09gnf8i3 ano7+lKaATW4tgdngaLt3h85moygShZhAi664A/q5f xbfr+K5uU2560ZOYW95t060gmEo+yeWOtJ8oQCIvkmYQi5WvoM6Qc9jzp470C7Kj/liuz/1GSaCgu9RV a74/UAtdxd+nxf/Ug2qMZ3Xgm7K/yaBf+du0+K+WaxjVQ0diWVW7nXjzcca9Bs1re/mrtPhH+4S550QN 461Hk3R/5H0kC/8AuUftmnAWc5JVoi/Os9lP3wg7s2 7cG8hieVj2MaXtkPQT/SsbE/zs79zVy1X/TnkH4b9QYoj/JRnq/bAsB0seA5kb1b1vuQ/3r/BojI2c95 K2Y1UN153o/UrfS/pVlN+Qi9kU5XsGc8rT4mr6mNysyYivC1HI6s7o+X7Pv9bw7oau7G4G9hP3hw/C91 34vgvfd+X6BkxvppzP/CRD1yj31zz3R/DTuRNWTo5T /NeW7MrnZ+Df4N9Z/g02sw0kB+3ZJcfJLjl+ib3RckeFqdeT/j7kdY1eY+7g3N53kdjfyiytYQ8b0SC5 yn4V/UI7sVk29E1RxqT+1Xhy/b8tizb7ciXekF19rU01ZT+RcDvjcXR2X8HdXzH3yw/qRIKgv28lxc0J eHL+yqbFT0JuhK/gN/W8zxpZ4Fqfg1T2qZAmbR/2jS H71RS+gb+FexDubOtgODd9l6T/dE0F7Y7PPA/HSonbbC7l0+cJ2W0hk5v5+vsB74x5LWxN5Hixk7j49W /p2En6xec+Ff2tA/zA0fr4twPntlszWm9Me8Cf35qlPEcBstQh/0z19Zu3y4Ru/vNoFfgGfO5/R8v/0Y V0coG250gD25Rdwy8wxEMBEu2/BwIioCB7Hx+A38Dn /eeh+2upJMuPwuX7u78Vi0J+9s9M7Ii/Pf9HQ/arwBvwun+l9AB+3P/jcP1K/8Eh+5Iyqtjfm5b/JfxG OTvxun/YQq029rxCxf6HlFj19H/DeLYGfAc+79cNw/a1rYrLz07KwsPJY7/HqoV6I0Q1yk04spWAGur0 4QXwH2bD258l6wu2zHy/HTofPGngG/jzvGzgfHCMPD 0ko2CruqIOg6RwS6jcZ9cDD45RP8iy/ztG/z7Y8qsH5K0wH/N3Yr2a+b0forLk69VXuLoQNgqn3/87cL 99SL/S+Yy7HmEaI+JDqdK80OW45FS+WxJaQtjtQwG2hpLg/iQZlS48zFJ43d8oH+19f0DqYUI62lwmz5 /Vwd/Bn/nui4e1BTDpa1RxIMvf5PFlkT0cnxjHLY5d pu4Mn0ap3w0713dFjjvPB6B89fklj06iGstXW8U73tatnM8yeRC+2Fh8jE3HyP+0oetxE0hTi6Nk12Uj wb+B31f/w8Dc8Kv/11CCB1P4/WCkK/AV+WW3G76Ji/pZ2dm8Vmk9f98k/bM4argB4WHqvij+Cf4F/AJ/ 3p+cYb96v+90/We6wTj8eo3vwkCg2ws4E1sc5+dM16 +Gf+vp cardiovascular service line+tWySL/4wl5KWc8+u+wD0++3y440/X77+7Dp6UbCS250bb0kx+3tXXlfe/uckbZjS5+63x55l+ TLmdx5FW4dp3/nj78vS3Ub32fdnb/6jwU7kVT2ghidsz5fPyvkZcbvlwFu+6hHG0874wg7Mx6a56HY44 At6W3ELo9WR/SrWSfKmXe+zJr/31lzPM+q03vHc2Qp +iX1gG3lGKe/Nby49286vDlPw7HJpR55kI0u0MraHmai01m5AflB1esqwc7/el2ymvzjfzfIzyx3tIJb rqlAnkg9Ld+VpO8rLV4Aq2D0j5719ERYxi3CGrdX0/48Xb86/U0u4EcvXDw6gC0a3ZZH85H0C+ed61ey Y8++wL9QL+Zvz/RcKwdWvUya1sIY2u2ui8b7xTahm0 V9gu0V0b5slusiN047ACq36Obv8XB6Zrd6Nlj0Suq7R8nL84E8j39zbutGN+/1Bo62jg9Gg+gSuxWQ94 +Cx/Jyv3PzM8tqP1oCZM2/yo72od84cKp1P/Bub4+8bm/T0KY41nQ0c7fZLB+S/Ke8jfEq3ZljS6dozr /7GzwbeO+q82Km8w3wmC9ELvnW/gp8BX/z208g5f3N 50sD9k0Akwg+e+QHwWy3k49FhccL0/h0p7Qns4+qI4mSD22/wo43ja368Jbabe0DoZjcS62886+1hrh+ dfAV+Et94115Y72/KloTXL+SbX+3usKy0oS1is9a056WyzT/gPf+nlYfOYlkw04t55H2Z4xGmW+f+0n+ XYD3/uo/5frVTWe/rzn8vwrcUjcmY9UmSm08wGq32i xPmbrfrn+A53bmUnG5yM4towT2xN5U60rq/kbazpxdT+obS+eDRely1+El/xyolY68C97Vi8z460a6Ha tJe/q50hh46s3ftp9cPBb+i5nwW045fSfyZ+5n93lRT/QjsKM7qt7BJ3i9JgcIb3Z8L9J+tWC/Wrh/tW C/WrBfLdivFuxXq+P6auN7l1wMn3W/AD+Iq3Nx1Xih G/jcD66K/uL+8uk7V1uzW65o2ejGR/DoL+xXq6K/Yrs9bycj0H8Du5B/alX0F/hvBg5tsewBHbqk0K/Y wfukEuz9a9R2q6ikqH21xG+xqnsh6Vrvzd1Uvg5Ro5JpZ8/zq3sT92TA6k6Tno8skTC69Ocqu5gpWvD+ z1NWz/yyy9m9A7i+ddLgrznvZL+OoX5jnP2K7+DvwN zAa0lqX0T2rE6W1zZ+cMF+tWS/CvxC+Pgq7HEV+1LB04ON9wyZ3buo69A0jjT1u+OZc75Lr9Q6J/ng/e IF78Kfhm7awsxPgDt32/8u0yku4Zm7763OHjizGPX7K5dzsfoidE9GXs0Hsbv19r/MnY9A6ggHxyPx9+ axDfK97G/l4331Dai+qi0WSVglvZ2H/Ea9O/Ez9/tr hi48U6j5W5uytk/cQ632PkB+oRjig2jm3L+aaY9dE/8j2a+RT93B3cmDVkhyNM5x/0qTloF4Y/y5H1wL 43lhPK/vL19SyKn8ag4N4PeBxrzg1NlfUO6E42ai/7sM/Pj/9eia0XwfnmXogVKopxkCh0yG+0Wo81hJ ik5S0nb2/9s34bxwQ++jkO31pDCb/1p1aglmrh/l+u fS/SvXwZbuX/VIW6YH+Ihgpl7sjcJe5kdZjFpvQ+8Hl+5feXo/xZ8eX54uGmd4Q7e8g3kohM6Qly+t88 TEjnDH2V+uc8Ua1AgR805T/Fie66Cd65Q+DDIm6L7lZ4130aw/R/vJ84UN/gg6VHIX1CJ74J66qsXTep ftkucLu+T/f0x6L0bp8N9W78WQ/MnZf8qRf9e539f0 S7+K9ALe++p15Z2qNa2afB/eNc+7d32Az/CmDSkqaD04w+qTO/Vz3LutlB/tmuehu+b9jV3z/cKuA/Xm edmWfrWF9/9WioHo4flg4012dkmsd3C/6V5lR6Hb/nNc1i7u8OY/8wq0yduow9484p9t0N13o6gUwW19 GsoZKD/7W545p5od55UfcU2daX8b0G0gC+2W7+l2z/ dluz/A5/uj3Qvw+d5q93x/tKszN5tSn9C/PfA9+yH7Gz3J+pW+of4JRo38/FBciZ6WpT7hsc7oPV0Hbo utC6eI5AmoPtp6v16CtVpaw4V1Wh4V59IjfWag9n/Its575eri1R1QJpmSjv+jDf1qW/3IHgBtKx4lr0 6KA5SCE4Xci809t8l8P0AiHo0/5h0iQh0B0813W5f7 nmG18ac37/1O+s9ap4c4642f/wLdb3/PCz0vC5879+1bVwevc4ijlxjb0M6r5795oAib2exht5+ue/Lb 77cPrTN+vz3WE/rBH6MD53+22+e618yek/dX6/HI91Uv26l1jbg4lla94j/dGP9BLe4a5Go9yq2lW6/p V9G21J/3TH9B2/Zkk04426rhA4t3Wx/67frVTd//+H [file] /5XrJ/RW3+goenDCbcR1Wn64PA90+9+gF9bMkkLpOQjDK/8Hp+Er/+5s9N+U1gromm74wrLaJPqp+/hand compositor ndp/FWHo8/93av+P3qwpiqw9jJrUi/NU202fmukrRIc6gwNFqiMkG14GrTV+1yklEPu3+D0duc0J+6/0 rg/as/ZfyZ/af6Vvt/DV5+NpPWGvuEVK5FVqs+MrDy c+Gl5J5fM/RGD012a07iZFGUYduJ9xwsT6+nDm+wKKej3V38H0+MevktI7pZ6ab/VT7xeKs/3eS+Hxxx h3j8oo37zm3YqqHr8DpnJb6JY5itnWt/YZ5w1bm4spj65NzfZViirygXTw2Z/Ypb0e7jjIc0UxAVxaj5 +a3OyfEk4zaI5DvV9Zsz8BT6t6Ykn/tjhwcC5A/tf+ q09ly/XuVXL/wfi5S1mV3X+cSc59N2JNtnSb7dfQMAO8s1Xuupvg1yL1bUzde8/iqjm/sbQ+xU13pQ4R 5ea0Yhn8KazWe96NY80PrfKt/nuAloIXfWaqte5ugP0yffe3eLVwOycg/vkpqQC7tlo170x76LL9ivcr umJBuhUe08kG05uJ997UGhcr6bUtMBW+wvm4arBT+p N6zV9F+MouzoZqwJXUK4fjc8/OwYmmjLg6ykwUdSu+6i82f/MZjjuvMr5Ch8sUz8+D8H7gugQnxF/J8o sw0iTpkn4txX9QriXSikRaVbZpAu0WC87D83Xq6auhAh5en2c+1uzCI4D/5F9vNzih3nCn9VUxb04jLZ S20wcwNcrpizq0pKEbCy5g71rEH+gvueF5i60+Zl58 8SocmOk9DvPMwv/QkAjhgv4nxFypohD3SvqYbSm5Rd8Ct/T991alKe4IM4/8wN7oQk1OT74mnwRukmpJ 3yezngGFyT1H//RE870ZLpg+eo3tF1/ZRt3Vkivf+g9e2cc8dvM12LPeqgpME4Rhdcx220UPn1m/+1Rb av8jY84D6IAWw1TwbV1FlX+1avRe446+poevXu/O9r cP+cJ8j1t3v19hzLAfhw8dck88Sj3S0JG74qpxQ+YdoTS21Kjbf6762m5O/nbX2/96U0a3865sch/d63 [file] [id number] ID Date Data Source [id number] 01/08/2021 05:09:00 AM EDT [facility] (Jon Elizondo MD) Name Value Range Interpretation Code Description Data Tavo rce(s) Supporting Document(s) Laboratory test finding (navigational concept) Laboratory test result [facility] (Jon Elizondo MD) COMPREHENSIVE METABOLIC PANEL Laboratory test finding (navigational concept) 139 meq/L 134-153 [facility] (Jon Elizondo MD) Laboratory test finding (navigational concept) 4.3 meq/L 3.6-5.0 [facility] (Jon Eilzondo MD) Laboratory test finding (navigational concept) 100 meq/L 98-107 [facility] (Jon Elizondo MD) Laboratory test finding (navigational concept) 28 meq/L 22-30 [facility] (Jon Elizondo MD) Laboratory test finding (navigational concept) 106 mg/dL 7 0-99 Above high normal [facility] (Jon Elizondo MD) Laboratory test finding (navigational concept) 31 mg/dL 7-21 Above high normal [facility] (Jon Elizondo MD) Laboratory test finding (navigational concept) 1.2 mg/dL 0.7-1.5 [facility] (Jon Elizondo MD) Laboratory test finding (navigational concept) 26 8-27 [facility] (Jon Elizondo MD) Laboratory test finding (navigational concept) 6.4 g/dL 6.3-8.2 [facility] (Jon Elizondo MD) Laboratory test finding (navigational concept) 4.3 g/dL 3.9-5.0 [facility] (Jon Elizondo MD) Laboratory test finding (navigational concept) 2.0 0.8-2.0 [facility] (Jon Elizondo MD) Laboratory test finding (navigational concept) 2.1 GM/DL 2 .4-3.2 Below low normal [facility] (Jon Elizondo MD) Laboratory test finding (navigational concept) 9.5 mg/dL 8.4-10.2 [facility] (Jon Elizondo MD) Laboratory test finding (navigational concept) 0.7 mg/dL 0.2-1.3 [facility] (Jon Elizondo MD) Laboratory test finding (navigational concept) 277 U/L 38-126 Above high normal [facility] (Jon Elizondo MD) Laboratory test finding (navigational concept) 38 U/L 5-40 [facility] (Jon Elizondo MD) Laboratory test finding (navigational concept) 30 U/L 7-56 [facility] (Jon Elizondo MD) Laboratory test finding (navigational concept) 11.0 mmol/L 8.0-16.0 [facility] (Jon Elizondo MD) Laboratory test finding (navigational concept) 65 yrs [facility] (Jon Elizondo MD) Laboratory test finding (navigational concept) Laboratory test result [facility] (Jon Elizondo MD) Laboratory test finding (navigational concept) Laboratory test result [facility] (Jon Elizondo MD) Male GFR Interprentation 20-49 yrs >60 mL/min Normal 50-59 yrs >56 mL/min Normal 60-69 yrs >49 mL/min Normal 70-79yrs >42 mL/min Normal 80 and above >35 mL/min Normal Female GFR Interpretation 20-39 yrs >60 mL/min Normal 40-49 yrs >58 mL/min Normal 50-59 yrs >51 mL/min Normal 60-69 yrs >45 mL/min Normal 70-79 yrs >39 mL/min Normal 80 and above >32 mL/min Normal ID Date Data Source [id number] 01/08/2021 05:09:00 AM EDT [facility] (Jon Elizondo MD) Name Value Range Interpretation Code Description Data Tavo rce(s) Supporting Document(s) Laboratory test finding (navigational concept) Laboratory test result [facility] (Jon Elizondo MD) COMPLETE BLOOD COUNT Laboratory test finding (navigational concept) 3.06 10^6/uL 4 .50-6.30 Below low normal [facility] (Jon Elizondo MD) Laboratory test finding (navigational concept) 5.1 10^3/uL 4.2-11.0 [facility] (Jon Elizondo MD) Laboratory test finding (navigational concept) 9.5 g/dL 1 4.0-16.0 Below low normal [facility] (Jon Elizondo MD) Laboratory test finding (navigational concept) 30.5 % 4 1.0-51.0 Below low normal [facility] (Jon Elizondo MD) Laboratory test finding (navigational concept) 99.7 fL 8 0.0-94.0 Above high normal [facility] (Jon Elizondo MD) Laboratory test finding (navigational concept) 31.1 g/dL 31.0-36.0 [facility] (Jon Elizondo MD) Laboratory test finding (navigational concept) 31.0 pg 27.0-34.0 [facility] (Jon Elizondo MD) Laboratory test finding (navigational concept) 147 10^3/uL 1 50-450 Below low normal [facility] (Jon Elizondo MD) Laboratory test finding (navigational concept) 16.4 % 1 1.5-14.8 Above high normal [facility] (Jon Elizondo MD) Laboratory test finding (navigational concept) 9.1 % 25.0-40 .0 Below low normal [facility] (Jon Elizondo MD) Laboratory test finding (navigational concept) 11.1 fL 7 .4-10.4 Above high normal [facility] (Jon Elizondo MD) Laboratory test finding (navigational concept) 76.0 % 37.0-80.0 [facility] (Jon Elizondo MD) Laboratory test finding (navigational concept) 10.7 % 3.0-8.0 Above high normal [facility] (Jon Elizondo MD) Laboratory test finding (navigational concept) 3.2 % 0.0-7.0 [facility] (Jon Elizondo MD) Laboratory test finding (navigational concept) 0.8 % 0.0-2.0 [facility] (Jon Elizondo MD) Laboratory test finding (navigational concept) 0.0 % 0.0-0.0 [facility] (Jon Elizondo MD) Laboratory test finding (navigational concept) 0.2 % 0.0-0.0 Above high normal [facility] (Jon Elizondo MD) Laboratory test finding (navigational concept) 3.84 10^3/uL 2.00-6.90 [facility] (Jon Elizondo MD) Laboratory test finding (navigational concept) 0.46 10^3/uL 0 .60-3.40 Below low normal [facility] (Jon Elizondo MD) Laboratory test finding (navigational concept) 0.54 10^3/uL 0.00-0.90 [facility] (Jon Elizondo MD) Laboratory test finding (navigational concept) 0.16 10^3/uL 0.00-0.70 [facility] (Jon Elizondo MD) Laboratory test finding (navigational concept) 0.04 10^3/uL 0.00-0.20 [facility] (Jon Elizondo MD) Laboratory test finding (navigational concept) 0.00 10^3/uL 0.00-0.00 [facility] (Jon Elizondo MD) Laboratory test finding (navigational concept) 0.01 10^3/uL 0.00-0.10 [facility] (Jon Elizondo MD) Laboratory test finding (navigational concept) Laboratory test result [facility] (Jon Elizondo MD) Laboratory test finding (navigational concept) Laboratory test result [facility] (Jon Elizondo MD) ID Date Data Source [id number] 01/08/2021 06:22:00 AM EDT [facility] Name Value Range Interpretation Code Description Data Tavo rce(s) Supporting Document(s) COMPREHENSIVE METABOLIC PANEL [facility] COMPREHENSIVE METABOLIC PANEL Sodium [Moles/volume] in Serum or Plasma 139 mEq/L 134 - 153 [facility] Potassium [Moles/volume] in Serum or Plasma 4.3 mEq/L 3.6 - 5.0 [facility] Chloride [Moles/volume] in Serum or Plasma 100 mEq/L 98 - 107 [facility] Carbon dioxide, total [Moles/volume] in Serum or Plasma 28 MEQ/L 22 - 30 [facility] Glucose [Mass/volume] in Serum or Plasma 106 MG/DL 70 - 99 H [facility] BUN 31 MG/DL 7 - 21 H [facility] Creatinine [Mass/volume] in Serum or Plasma 1.2 MG/DL 0.7 - 1.5 [facility] BUN/CREAT 26 8 - 27 [facility] Protein [Mass/volume] in Serum or Plasma 6.4 G/DL 6.3 - 8.2 [facility] Albumin [Mass/volume] in Serum or Plasma 4.3 G/DL 3.9 - 5.0 [facility] Globulin [Mass/volume] in Serum by calculation 2.1 GM/DL 2.4 - 3.2 L [facility] A/G RATIO 2.0 0.8 - 2.0 [facility] Calcium [Mass/volume] in Serum or Plasma 9.5 MG/DL 8.4 - 10.2 [facility] Bilirubin.total [Mass/volume] in Serum or Plasma 0.7 MG/DL 0.2 - 1.3 [facility] Alkaline phosphatase [Enzymatic activity/volume] in Serum or Plasma 277 U/L 38 - 126 H [facility] Aspartate aminotransferase [Enzymatic activity/volume] in Serum or Plasma 38 U/L 5 - 40 [facility] Alanine aminotransferase [Enzymatic activity/volume] in Seru m or Plasma 30 U/L 7 - 56 [facility] Anion gap 3 in Serum or Plasma 11.0 mmol/L 8.0 - 16.0 [facility] AGE 65 yrs [facility] NON-AA GFR >60 mL/min [facility] AFR AMER GFR >60 mL/min [facility] Male GFR In terprentation 20-49 yrs >60 mL/min Normal 50-59 yrs >56 mL/min Normal 60-69 yrs >49 mL/min Normal 70-79yrs >42 mL/min Normal 80 and above >35 mL/min Normal Female GFR Interpretation 20-39 yrs >60 mL/min Normal 40-49 yrs >58 mL/min Normal 50-59 yrs >51 mL/min Normal 60-69 yrs >45 mL/min Normal 70-79 yrs >39 mL/min Normal 80 and above >32 mL/min Normal ID Date Data Source [id number] 01/08/2021 06:20:00 AM EDT [facility] Name Value Range Interpretation Code Description Data Tavo rce(s) Supporting Document(s) CBC W/AUTOMATED DIFF [facility] COMPLETE BLOOD COUNT Leukocytes [#/volume] in Blood by Automated count 5.1 10^3/uL 4.2 - 1 1.0 [facility] Erythrocytes [#/volume] in Blood by Automated count 3.06 10^6/uL 4. 50 - 6.30 L [facility] Hemoglobin [Mass/volume] in Blood 9.5 g/dL 14.0 - 16.0 L [facility] Hematocrit [Volume Fraction] of Blood by Automated count 30.5 % 4 1.0 - 51.0 L [facility] Erythrocyte mean corpuscular volume [Entitic volume] by Auto mated count 99.7 fL 80.0 - 94.0 H [facility] Erythrocyte mean corpuscular hemoglobin [Entitic mass] by Automated count 31.0 pg 27.0 - 34.0 [facility] Erythrocyte mean corpuscular hemoglobin concentration [Mass/volume] by Automated count 31.1 g/dL 31.0 - 36.0 [facility] Erythrocyte distribution width [Ratio] by Automated count 16.4 % 11.5 - 14.8 H [facility] Platelets [#/volume] in Blood by Automated count 147 10^3/uL 150 - 45 0 L [facility] Platelet mean volume [Entitic volume] in Blood by Automated count 11.1 fL 7.4 - 10.4 H [facility] Neutrophils/100 leukocytes in Blood by Automated count 76.0 % 37. 0 - 80.0 [facility] Lymphocytes/100 leukocytes in Blood by Manual count 9.1 % 25.0 - 40.0 L [facility] Monocytes/100 leukocytes in Blood by Automated count 10.7 % 3.0 - 8.0 H [facility] Eosinophils/100 leukocytes in Blood by Automated count 3.2 % 0.0 - 7.0 [facility] Basophils/100 leukocytes in Blood by Automated count 0.8 % 0.0 - 2.0 [facility] %IG 0.2 % 0.0 - 0.0 H [facility] %NRBC 0.0 % 0.0 - 0.[facility] Neutrophils [#/volume] in Blood by Automated count 3.84 10^3/uL 2.00 - 6.90 [facility] Lymphocytes [#/volume] in Blood by Automated count 0.46 10^3/uL 0.60 - 3.40 L [facility] Monocytes [#/volume] in Blood by Automated count 0.54 10^3/uL 0.00 - 0.90 [facility] Eosinophils [#/volume] in Blood by Automated count 0.16 10^3/uL 0.00 - 0.70 [facility] Basophils [#/volume] in Blood by Automated count 0.04 10^3/uL 0.00 - 0.20 [facility] #IG 0.01 10^3/uL 0.00 - 0.10 [facility] ospital #NRBC 0.00 10^3/uL 0.00 - 0.00 [facility] ospital MANUAL DIFF NOT INDICATED [facility] RBC MORPH NOT INDICATED [facility] spital ID Date Data Source [id number] 01/07/2021 05:50:00 PM EDT [facility] (Jon Elizondo MD) Name Value Range Interpretation Code Description Data Tavo rce(s) Supporting Document(s) Troponin T.cardiac [Mass/volume] in Serum or Plasma 0.02 ng/mL 0.00-0 .10 [facility] (Jon Elizondo MD) TROPONIN T 0.1 ng/ml Recommended as the clinical th reshold value for Troponin T. ID Date Data Source [id number] 01/07/2021 06:22:00 PM EDT [facility] Name Value Range Interpretation Code Description Data Tavo rce(s) Supporting Document(s) TROPONIN T 0.02 NG/ML 0.00 - 0.10 [facility] TROPONIN T0.1 ng/ml Recommended as the c linical threshold value forTroponin T. ID Date Data Source [id number] 01/07/2021 04:10:00 PM EDT [facility] [address] [place] [address] PHONE: [phone] FAX: [phone] Name .................. : FERNIE Charlton Acct Number.................. : [id number] ROOM. ................. : [facility] Number ................... : [id number] Stay type ............. : O/P Discharge Date......... ... : Admit Date ......... : 01/03/21 Admit Phys .................... : CARO WILMA Date of ....... : 1955 Family Phys ................... : CARO WILMA Phone .................. : [phone] Age ................................ : 65 Film# .................. .:[id number] Sex ................................. : M Unsigned transcriptions are preliminary reports and do not represent a medical or legal document CHEST 2 VIEWS [id number] COMPLETE:01/07/21 88:88 [id number] Tebbetts son for Exam: f/u chf FRONTAL AND LATERAL CHEST TWO VIEWS INDICATION: Follow-up CHF COMPARISON: 01/03/2021 and 12/19/2019. CT 01/03/2021 FINDINGS: Sternotomy and pacer defibrillator. No mediastinal or hilar mass. Heart size upper normal limits. Lungs are clear. No pulmonary edema. Mild interstitial prominence prominence and vascular congestion greater than prior baseline exam. This may be slightly improved. To some extent the changes may be due to better inspiratory volume. Minimal basilar airspace density likely atelectasis. Small bilateral pleural effusions. Left neck surgical clips. IMPRESSION: Findings compatible with congestive heart failure including vascular and interstitial prominence and small pleural effusions. This may be slightly improved from 01/03/2021 although some of the improved appearance is likely due to better inspiratory volume. Electronically Reviewed and Signed By Dhruv Henry MD , 01/07/21 16:10, SCB Transcribe Initials: SSR, Transcribe Date: 01/07/21 08:55, Dictation Date: Page 1 of 2 [place] [address] PHONE: [phone] FAX: [phone] Name .................. : FERNIE Charlton Acct Number.................. : [id number] ROOM. ................. : 109-1 Number ................... : [id number] Stay type ............. : O/P Discharge Date......... ... : Admit Date ......... : 01/03/21 Admit Phys .................... : CARO DILLON Date of ....... : 1955 Family Phys ................... : CARO DILLON Phone .................. : [phone] Age ................................ : 65 Film# .................. .:[id number] Sex ................................. : M Unsigned transcriptions are preliminary reports and do not represent a medical or legal document CHEST 2 VIEWS 14559 COMPLETE:01/07/21 88:88 [id number] Reason for Exam: f/u chf Copy for: BETO DRAKEA via modem Copy for: CARO ACOSTA via modem Copy for: EMERGENCY DEPT via modem Copy for: 710 MED REC Page 2 of 2 Name Value Range Interpretation Code Description Data Tavo rce(s) Supporting Document(s) ID Date Data Source [id number] 01/07/2021 05:50:00 AM EDT [facility] (Jon Elizondo MD) Name Value Range Interpretation Code Description Data Tavo rce(s) Supporting Document(s) Laboratory test finding (navigational concept) Laboratory test result [facility] (Jon Elizondo MD) COMPREHENSIVE METABOLIC PANEL Laboratory test finding (navigational concept) 139 meq/L 134-153 [facility] (Jon Elizondo MD) Is patient fasting? N Laboratory test finding (navigational concept) 3.9 meq/L 3.6-5.0 [facility] (Jon Elizondo MD) Is patient fasting? N Laboratory test finding (navigational concept) 101 meq/L 98-107 [facility] (Jon Elizondo MD) Is patient fasting? N Laboratory test finding (navigational concept) 28 meq/L 22-30 [facility] (Jon Elizondo MD) Is patient fasting? N Laboratory test finding (navigational concept) 104 mg/dL 7 0-99 Above high normal [facility] (Jon Elizondo MD) Is patient fasting? N Laboratory test finding (navigational concept) 31 mg/dL 7-21 Above high normal [facility] (Jon Elizondo MD) Is patient fasting? N Laboratory test finding (navigational concept) 1.1 mg/dL 0.7-1.5 [facility] (Jon Elizondo MD) Is patient fasting? N Laboratory test finding (navigational concept) 28 8-27 Above high normal [facility] (Jon Elizondo MD) Is patient fasting? N Laboratory test finding (navigational concept) 6.4 g/dL 6.3-8.2 [facility] (Jon Elizondo MD) Is patient fasting? N Laboratory test finding (navigational concept) 4.1 g/dL 3.9-5.0 [facility] (Jon Elizondo MD) Is patient fasting? N Laboratory test finding (navigational concept) 2.3 GM/DL 2 .4-3.2 Below low normal [facility] (Jon Elizondo MD) Is patient fasting? N Laboratory test finding (navigational concept) 1.8 0.8-2.0 [facility] (Jon Elizondo MD) Is patient fasting? N Laboratory test finding (navigational concept) 9.2 mg/dL 8.4-10.2 [facility] (Jon Elizondo MD) Is patient fasting? N Laboratory test finding (navigational concept) Laboratory test resu lt 0.2-1.3 [facility] (Jon Elizondo MD) Is patient fasting? N Laboratory test finding (navigational concept) 266 U/L 38-126 Above high normal [facility] (Jon Elizondo MD) Is patient fasting? N Laboratory test finding (navigational concept) 27 U/L 5-40 [facility] (Jon Elizondo MD) Is patient fasting? N Laboratory test finding (navigational concept) 17 U/L 7-56 [facility] (Jon Elizondo MD) Is patient fasting? N Laboratory test finding (navigational concept) 10.0 mmol/L 8.0-16.0 [facility] (Jon Elizondo MD) Is patient fasting? N Laboratory test finding (navigational concept) 65 yrs [facility] (Jon Elizondo MD) Is patient fasting? N Laboratory test finding (navigational concept) Laboratory test result [facility] (Jon Elizondo MD) Is patient fasting? N Laboratory test finding (navigational concept) Laboratory test result [facility] (Jon Elizondo MD) Male GFR Interprentation 20-49 yrs >60 mL/min Normal 50-59 yrs >56 mL/min Normal 60-69 yrs >49 mL/min Normal 70-79yrs >42 mL/min Normal 80 and above >35 mL/min Normal Female GFR Interpretation 20-39 yrs >60 mL/min Normal 40-49 yrs >58 mL/min Normal 50-59 yrs >51 mL/min Normal 60-69 yrs >45 mL/min Normal 70-79 yrs >39 mL/min Normal 80 and above >32 mL/min Normal ID Date Data Source [id number] 01/07/2021 05:50:00 AM EDT [facility] (Jon Elizondo MD) Name Value Range Interpretation Code Description Data Tavo rce(s) Supporting Document(s) Laboratory test finding (navigational concept) Laboratory test result [facility] (Jon Elizondo MD) Is patient fasting? N Laboratory test finding (navigational concept) 5.0 10^3/uL 4.2-11.0 [facility] (Jon Elizondo MD) Is patient fasting? N Laboratory test finding (navigational concept) 3.14 10^6/uL 4 .50-6.30 Below low normal [facility] (Jon Elizondo MD) Is patient fasting? N Laboratory test finding (navigational concept) 9.7 g/dL 1 4.0-16.0 Below low normal [facility] (Jon Elizondo MD) Is patient fasting? N Laboratory test finding (navigational concept) 30.9 % 4 1.0-51.0 Below low normal [facility] (Jon Elizondo MD) Is patient fasting? N Laboratory test finding (navigational concept) 98.4 fL 8 0.0-94.0 Above high normal [facility] (Jon Elizondo MD) Is patient fasting? N Laboratory test finding (navigational concept) 30.9 pg 27.0-34.0 [facility] (Jon Elizondo MD) Is patient fasting? N Laboratory test finding (navigational concept) 31.4 g/dL 31.0-36.0 [facility] (Jon Elizondo MD) Is patient fasting? N Laboratory test finding (navigational concept) 144 10^3/uL 1 50-450 Below low normal [facility] (Jon Elizondo MD) Is patient fasting? N Laboratory test finding (navigational concept) 16.5 % 1 1.5-14.8 Above high normal [facility] (Jon Elizondo MD) Is patient fasting? N Laboratory test finding (navigational concept) 75.8 % 37.0-80.0 [facility] (Jon Elizondo MD) Is patient fasting? N Laboratory test finding (navigational concept) 11.0 fL 7 .4-10.4 Above high normal [facility] (Jon Elizondo MD) Is patient fasting? N Laboratory test finding (navigational concept) 10.9 % 2 5.0-40.0 Below low normal [facility] (Jon Elizondo MD) Is patient fasting? N Laboratory test finding (navigational concept) 9.1 % 3.0-8.0 Above high normal [facility] (Jon Elizondo MD) Is patient fasting? N Laboratory test finding (navigational concept) 0.4 % 0.0-2.0 [facility] (Jon Elizondo MD) Is patient fasting? N Laboratory test finding (navigational concept) 3.4 % 0.0-7.0 [facility] (Jon Elizondo MD) Is patient fasting? N Laboratory test finding (navigational concept) 0.4 % 0.0-0.0 Above high normal [facility] (Jon Elizondo MD) Is patient fasting? N Laboratory test finding (navigational concept) 0.0 % 0.0-0.0 [facility] (Jon Elizondo MD) Is patient fasting? N Laboratory test finding (navigational concept) 3.77 10^3/uL 2.00-6.90 [facility] (Jon Elizondo MD) Is patient fasting? N Laboratory test finding (navigational concept) 0.54 10^3/uL 0 .60-3.40 Below low normal [facility] (Jon Elizondo MD) Is patient fasting? N Laboratory test finding (navigational concept) 0.45 10^3/uL 0.00-0.90 [facility] (Jon Elizondo MD) Is patient fasting? N Laboratory test finding (navigational concept) 0.17 10^3/uL 0.00-0.70 [facility] (Jon Elizondo MD) Is patient fasting? N Laboratory test finding (navigational concept) 0.02 10^3/uL 0.00-0.20 [facility] (Jon Elizondo MD) Is patient fasting? N Laboratory test finding (navigational concept) 0.00 10^3/uL 0.00-0.00 [facility] (Jon Elizondo MD) Is patient fasting? N Laboratory test finding (navigational concept) 0.02 10^3/uL 0.00-0.10 [facility] (Jon Elizondo MD) Is patient fasting? N Laboratory test finding (navigational concept) Laboratory test result [facility] (Jon Elizondo MD) Is patient fasting? N Laboratory test finding (navigational concept) Laboratory test result [facility] (Jon Elizondo MD) Is patient fasting? N ID Date Data Source [id number] 01/07/2021 07:26:00 AM EDT [facility] Name Value Range Interpretation Code Description Data Tavo rce(s) Supporting Document(s) CBC W/AUTOMATED DIFF [facility] COMPLETE BLOOD COUNT Leukocytes [#/volume] in Blood by Automated count 5.0 10^3/uL 4.2 - 1 1.0 [facility] Erythrocytes [#/volume] in Blood by Automated count 3.14 10^6/uL 4. 50 - 6.30 L [facility] Hemoglobin [Mass/volume] in Blood 9.7 g/dL 14.0 - 16.0 L [facility] Hematocrit [Volume Fraction] of Blood by Automated count 30.9 % 4 1.0 - 51.0 L [facility] Erythrocyte mean corpuscular volume [Entitic volume] by Auto mated count 98.4 fL 80.0 - 94.0 H [facility] Erythrocyte mean corpuscular hemoglobin [Entitic mass] by Automated count 30.9 pg 27.0 - 34.0 [facility] Erythrocyte mean corpuscular hemoglobin concentration [Mass/volume] by Automated count 31.4 g/dL 31.0 - 36.0 [facility] Erythrocyte distribution width [Ratio] by Automated count 16.5 % 11.5 - 14.8 H [facility] Platelets [#/volume] in Blood by Automated count 144 10^3/uL 150 - 45 0 L [facility] Platelet mean volume [Entitic volume] in Blood by Automated count 11.0 fL 7.4 - 10.4 H [facility] Neutrophils/100 leukocytes in Blood by Automated count 75.8 % 37. 0 - 80.0 [facility] Lymphocytes/100 leukocytes in Blood by Manual count 10.9 % 25.0 - 40.0 L [facility] Monocytes/100 leukocytes in Blood by Automated count 9.1 % 3.0 - 8.0 H [facility] Eosinophils/100 leukocytes in Blood by Automated count 3.4 % 0.0 - 7.0 [facility] Basophils/100 leukocytes in Blood by Automated count 0.4 % 0.0 - 2.0 [facility] %IG 0.4 % 0.0 - 0.0 H [facility] %NRBC 0.0 % 0.0 - 0.0 [facility] al Neutrophils [#/volume] in Blood by Automated count 3.77 10^3/uL 2.00 - 6.90 [facility] Lymphocytes [#/volume] in Blood by Automated count 0.54 10^3/uL 0.60 - 3.40 L [facility] Monocytes [#/volume] in Blood by Automated count 0.45 10^3/uL 0.00 - 0.90 [facility] Eosinophils [#/volume] in Blood by Automated count 0.17 10^3/uL 0.00 - 0.70 [facility] Basophils [#/volume] in Blood by Automated count 0.02 10^3/uL 0.00 - 0.20 [facility] #IG 0.02 10^3/uL 0.00 - 0.10 [facility] #NRBC 0.00 10^3/uL 0.00 - 0.00 [facility] MANUAL DIFF NOT INDICATED [facility] RBC MORPH NOT INDICATED [facility] ID Date Data Source [id number] 01/07/2021 07:26:00 AM EDT [facility] Name Value Range Interpretation Code Description Data Tavo rce(s) Supporting Document(s) COMPREHENSIVE METABOLIC PANEL [facility] COMPREHENSIVE METABOLIC PANEL Sodium [Moles/volume] in Serum or Plasma 139 mEq/L 134 - 153 [facility] Potassium [Moles/volume] in Serum or Plasma 3.9 mEq/L 3.6 - 5.0 [facility] Chloride [Moles/volume] in Serum or Plasma 101 mEq/L 98 - 107 [facility] Carbon dioxide, total [Moles/volume] in Serum or Plasma 28 MEQ/L 22 - 30 [facility] Glucose [Mass/volume] in Serum or Plasma 104 MG/DL 70 - 99 H [facility] BUN 31 MG/DL 7 - 21 H [facility] Creatinine [Mass/volume] in Serum or Plasma 1.1 MG/DL 0.7 - 1.5 [facility] BUN/CREAT 28 8 - 27 H [facility] Protein [Mass/volume] in Serum or Plasma 6.4 G/DL 6.3 - 8.2 [facility] Albumin [Mass/volume] in Serum or Plasma 4.1 G/DL 3.9 - 5.0 [facility] Globulin [Mass/volume] in Serum by calculation 2.3 GM/DL 2.4 - 3.2 L [facility] A/G RATIO 1.8 0.8 - 2.0 [facility] Calcium [Mass/volume] in Serum or Plasma 9.2 MG/DL 8.4 - 10.2 [facility] Bilirubin.total [Mass/volume] in Serum or Plasma <0.7 MG/DL 0.2 - 1.3 [facility] Alkaline phosphatase [Enzymatic activity/volume] in Serum or Plasma 266 U/L 38 - 126 H [facility] Aspartate aminotransferase [Enzymatic activity/volume] in Serum or Plasma 27 U/L 5 - 40 [facility] Alanine aminotransferase [Enzymatic activity/volume] in Seru m or Plasma 17 U/L 7 - 56 [facility] Anion gap 3 in Serum or Plasma 10.0 mmol/L 8.0 - 16.0 [facility] AGE 65 yrs [facility] NON-AA GFR >60 mL/min [facility] AFR AMER GFR >60 mL/min [facility] Male GFR In terprentation 20-49 yrs >60 mL/min Normal 50-59 yrs >56 mL/min Normal 60-69 yrs >49 mL/min Normal 70-79yrs >42 mL/min Normal 80 and above >35 mL/min Normal Female GFR Interpretation 20-39 yrs >60 mL/min Normal 40-49 yrs >58 mL/min Normal 50-59 yrs >51 mL/min Normal 60-69 yrs >45 mL/min Normal 70-79 yrs >39 mL/min Normal 80 and above >32 mL/min Normal ID Date Data Source [id number] 01/06/2021 07:13:00 AM EDT [facility] (Jon Elizondo MD) Name Value Range Interpretation Code Description Data Tavo rce(s) Supporting Document(s) Iron [Mass/volume] in Serum or Plasma 40 ug/dL 42-135 Below low normal [facility] (Jon Elizondo MD) ID Date Data Source [id number] 01/06/2021 07:13:00 AM EDT [facility] (Jno Elizondo MD) Name Value Range Interpretation Code Description Data Tavo rce(s) Supporting Document(s) Laboratory test finding (navigational concept) Laboratory test result [facility] (Jon Elizondo MD) COMPREHENSIVE METABOLIC PANEL Laboratory test finding (navigational concept) 141 meq/L 134-153 [facility] (Jon Elizondo MD) Laboratory test finding (navigational concept) 4.0 meq/L 3.6-5.0 [facility] (Jon Elizondo MD) Laboratory test finding (navigational concept) 102 meq/L 98-107 [facility] (Jon Elizondo MD) Laboratory test finding (navigational concept) 102 mg/dL 7 0-99 Above high normal [facility] (Jon Elizondo MD) Laboratory test finding (navigational concept) 29 meq/L 22-30 [facility] (Jon Elizondo MD) Laboratory test finding (navigational concept) 32 mg/dL 7-21 Above high normal [facility] (Jon Elizondo MD) Laboratory test finding (navigational concept) 1.2 mg/dL 0.7-1.5 [facility] (Jon Elizondo MD) Laboratory test finding (navigational concept) 27 8-27 [facility] (Jon Elizondo MD) Laboratory test finding (navigational concept) 2.2 GM/DL 2 .4-3.2 Below low normal [facility] (Jon Elizondo MD) Laboratory test finding (navigational concept) 4.1 g/dL 3.9-5.0 [facility] (Jon Elizondo MD) Laboratory test finding (navigational concept) 6.3 g/dL 6.3-8.2 [facility] (Jon Elizondo MD) Laboratory test finding (navigational concept) 1.9 0.8-2.0 [facility] (Jon Elizondo MD) Laboratory test finding (navigational concept) 9.4 mg/dL 8.4-10.2 [facility] (Jon Elizondo MD) Laboratory test finding (navigational concept) 252 U/L 38-126 Above high normal [facility] (Jon Elizondo MD) Laboratory test finding (navigational concept) 0.7 mg/dL 0.2-1.3 [facility] (Jon Elizondo MD) Laboratory test finding (navigational concept) 10.0 mmol/L 8.0-16.0 [facility] (Jon Elizondo MD) Laboratory test finding (navigational concept) 19 U/L 5-40 [facility] (Jon Elizondo MD) Laboratory test finding (navigational concept) 12 U/L 7-56 [facility] (Jon Elizondo MD) Laboratory test finding (navigational concept) 65 yrs [facility] (Jon Elizondo MD) Laboratory test finding (navigational concept) Laboratory test result [facility] (Jon Elizondo MD) Laboratory test finding (navigational concept) Laboratory test result [facility] (Jon Elizondo MD) Male GFR Interprentation 20-49 yrs >60 mL/min Normal 50-59 yrs >56 mL/min Normal 60-69 yrs >49 mL/min Normal 70-79yrs >42 mL/min Normal 80 and above >35 mL/min Normal Female GFR Interpretation 20-39 yrs >60 mL/min Normal 40-49 yrs >58 mL/min Normal 50-59 yrs >51 mL/min Normal 60-69 yrs >45 mL/min Normal 70-79 yrs >39 mL/min Normal 80 and above >32 mL/min Normal ID Date Data Source [id number] 01/06/2021 07:13:00 AM EDT [facility] (Jon Elizondo MD) Name Value Range Interpretation Code Description Data Tavo rce(s) Supporting Document(s) Laboratory test finding (navigational concept) Laboratory test result [facility] (oJn Elizondo MD) COMPLETE BLOOD COUNT Laboratory test finding (navigational concept) 6.1 10^3/uL 4.2-11.0 [facility] (Jon Elizondo MD) Laboratory test finding (navigational concept) 10.4 g/dL 1 4.0-16.0 Below low normal [facility] (Jon Elizondo MD) Laboratory test finding (navigational concept) 3.28 10^6/uL 4 .50-6.30 Below low normal [facility] (Jon Elizondo MD) Laboratory test finding (navigational concept) 98.2 fL 8 0.0-94.0 Above high normal [facility] (Jon Elizondo MD) Laboratory test finding (navigational concept) 32.2 % 4 1.0-51.0 Below low normal [facility] (Jon Elizondo MD) Laboratory test finding (navigational concept) 31.7 pg 27.0-34.0 [facility] (Jon Elizondo MD) Laboratory test finding (navigational concept) 32.3 g/dL 31.0-36.0 [facility] (Jon Elizondo MD) Laboratory test finding (navigational concept) 9.5 fL 7.4-10.4 [facility] (Jon Elizondo MD) Laboratory test finding (navigational concept) 16.7 % 1 1.5-14.8 Above high normal [facility] (Jon Elizondo MD) Laboratory test finding (navigational concept) 141 10^3/uL 1 50-450 Below low normal [facility] (Jon Elizondo MD) Laboratory test finding (navigational concept) 78.2 % 37.0-80.0 [facility] (Jon Elizondo MD) Laboratory test finding (navigational concept) 10.5 % 2 5.0-40.0 Below low normal [facility] (Jon Elizondo MD) Laboratory test finding (navigational concept) 8.4 % 3.0-8.0 Above high normal [facility] (Jon Elizondo MD) Laboratory test finding (navigational concept) 0.3 % 0.0-2.0 [facility] (Jon Elizondo MD) Laboratory test finding (navigational concept) 2.3 % 0.0-7.0 [facility] (Jon Elizondo MD) Laboratory test finding (navigational concept) 0.0 % 0.0-0.0 [facility] (Jon Elizondo MD) Laboratory test finding (navigational concept) 0.3 % 0.0-0.0 Above high normal [facility] (Jon Elizondo MD) Laboratory test finding (navigational concept) 4.75 10^3/uL 2.00-6.90 [facility] (Jon Elizondo MD) Laboratory test finding (navigational concept) 0.64 10^3/uL 0.60-3.40 [facility] (Jon Elizondo MD) Laboratory test finding (navigational concept) 0.51 10^3/uL 0.00-0.90 [facility] (Jon Elizondo MD) Laboratory test finding (navigational concept) 0.14 10^3/uL 0.00-0.70 [facility] (Jon Elizondo MD) Laboratory test finding (navigational concept) 0.02 10^3/uL 0.00-0.20 [facility] (Jon Elizondo MD) Laboratory test finding (navigational concept) 0.00 10^3/uL 0.00-0.00 [facility] (Jon Elizondo MD) Laboratory test finding (navigational concept) 0.02 10^3/uL 0.00-0.10 [facility] (Jon Elizondo MD) Laboratory test finding (navigational concept) Laboratory test result [facility] (Jon Elizondo MD) Laboratory test finding (navigational concept) Laboratory test result [facility] (Jon Elizondo MD) ID Date Data Source [id number] 01/06/2021 08:39:00 AM EDT [facility] Name Value Range Interpretation Code Description Data Tavo rce(s) Supporting Document(s) Iron [Mass/volume] in Serum or Plasma 40 UG/DL 42 - 135 L [facility] ID Date Data Source [id number] 01/06/2021 08:39:00 AM EDT [facility] Name Value Range Interpretation Code Description Data Tavo rce(s) Supporting Document(s) COMPREHENSIVE METABOLIC PANEL [facility] COMPREHENSIVE METABOLIC PANEL Sodium [Moles/volume] in Serum or Plasma 141 mEq/L 134 - 153 [facility] Potassium [Moles/volume] in Serum or Plasma 4.0 mEq/L 3.6 - 5.0 [facility] Chloride [Moles/volume] in Serum or Plasma 102 mEq/L 98 - 107 [facility] Carbon dioxide, total [Moles/volume] in Serum or Plasma 29 MEQ/L 22 - 30 [facility] Glucose [Mass/volume] in Serum or Plasma 102 MG/DL 70 - 99 H [facility] BUN 32 MG/DL 7 - 21 [facility] Creatinine [Mass/volume] in Serum or Plasma 1.2 MG/DL 0.7 - 1.5 [facility] BUN/CREAT 27 8 - 27 [facility] al Protein [Mass/volume] in Serum or Plasma 6.3 G/DL 6.3 - 8.2 [facility] Albumin [Mass/volume] in Serum or Plasma 4.1 G/DL 3.9 - 5.0 [facility] Globulin [Mass/volume] in Serum by calculation 2.2 GM/DL 2.4 - 3.2 L [facility] A/G RATIO 1.9 0.8 - 2.0 [facility] Calcium [Mass/volume] in Serum or Plasma 9.4 MG/DL 8.4 - 10.2 [facility] Bilirubin.total [Mass/volume] in Serum or Plasma 0.7 MG/DL 0.2 - 1.3 [facility] Alkaline phosphatase [Enzymatic activity/volume] in Serum or Plasma 252 U/L 38 - 126 H [facility] Aspartate aminotransferase [Enzymatic activity/volume] in Serum or Plasma 19 U/L 5 - 40 [facility] Alanine aminotransferase [Enzymatic activity/volume] in Seru m or Plasma 12 U/L 7 - 56 [facility] Anion gap 3 in Serum or Plasma 10.0 mmol/L 8.0 - 16.0 [facility] AGE 65 yrs [facility] NON-AA GFR >60 mL/min [facility] AFR AMER GFR >60 mL/min [facility] Male GFR In terprentation 20-49 yrs >60 mL/min Normal 50-59 yrs >56 mL/min Normal 60-69 yrs >49 mL/min Normal 70-79yrs >42 mL/min Normal 80 and above >35 mL/min Normal Female GFR Interpretation 20-39 yrs >60 mL/min Normal 40-49 yrs >58 mL/min Normal 50-59 yrs >51 mL/min Normal 60-69 yrs >45 mL/min Normal 70-79 yrs >39 mL/min Normal 80 and above >32 mL/min Normal ID Date Data Source [id number] 01/06/2021 07:33:00 AM EDT [facility] Name Value Range Interpretation Code Description Data Tavo rce(s) Supporting Document(s) CBC W/AUTOMATED DIFF [facility] COMPLETE BLOOD COUNT Leukocytes [#/volume] in Blood by Automated count 6.1 10^3/uL 4.2 - 1 1.0 [facility] Erythrocytes [#/volume] in Blood by Automated count 3.28 10^6/uL 4. 50 - 6.30 L [facility] Hemoglobin [Mass/volume] in Blood 10.4 g/dL 14.0 - 16.0 L [facility] Hematocrit [Volume Fraction] of Blood by Automated count 32.2 % 4 1.0 - 51.0 L [facility] Erythrocyte mean corpuscular volume [Entitic volume] by Auto mated count 98.2 fL 80.0 - 94.0 H [facility] Erythrocyte mean corpuscular hemoglobin [Entitic mass] by Automated count 31.7 pg 27.0 - 34.0 [facility] Erythrocyte mean corpuscular hemoglobin concentration [Mass/volume] by Automated count 32.3 g/dL 31.0 - 36.0 [facility] Erythrocyte distribution width [Ratio] by Automated count 16.7 % 11.5 - 14.8 H [facility] Platelets [#/volume] in Blood by Automated count 141 10^3/uL 150 - 45 0 L [facility] Platelet mean volume [Entitic volume] in Blood by Automated count 9.5 fL 7.4 - 10.4 [facility] Neutrophils/100 leukocytes in Blood by Automated count 78.2 % 37. 0 - 80.0 [facility] Lymphocytes/100 leukocytes in Blood by Manual count 10.5 % 25.0 - 40.0 L [facility] Monocytes/100 leukocytes in Blood by Automated count 8.4 % 3.0 - 8.0 H [facility] Eosinophils/100 leukocytes in Blood by Automated count 2.3 % 0.0 - 7.0 [facility] Basophils/100 leukocytes in Blood by Automated count 0.3 % 0.0 - 2.0 [facility] %IG 0.3 % 0.0 - 0.0 [facility] %NRBC 0.0 % 0.0 - 0.0 [facility] al Neutrophils [#/volume] in Blood by Automated count 4.75 10^3/uL 2.00 - 6.90 [facility] Lymphocytes [#/volume] in Blood by Automated count 0.64 10^3/uL 0.60 - 3.40 [facility] Monocytes [#/volume] in Blood by Automated count 0.51 10^3/uL 0.00 - 0.90 [facility] Eosinophils [#/volume] in Blood by Automated count 0.14 10^3/uL 0.00 - 0.70 [facility] Basophils [#/volume] in Blood by Automated count 0.02 10^3/uL 0.00 - 0.20 [facility] #IG 0.02 10^3/uL 0.00 - 0.10 [facility] #NRBC 0.00 10^3/uL 0.00 - 0.00 [facility] ospital MANUAL DIFF NOT INDICATED [facility] RBC MORPH NOT INDICATED [facility] spital ID Date Data Source [id number] 01/05/2021 05:22:00 PM EDT [facility] (Jon Elizondo MD) Name Value Range Interpretation Code Description Data Tavo rce(s) Supporting Document(s) Magnesium [Mass/volume] in Serum or Plasma 1.8 mg/dL 1.7-2.2 [facility] (Jon Elizondo MD) ID Date Data Source [id number] 01/05/2021 06:10:00 PM EDT [facility] Name Value Range Interpretation Code Description Data Tavo rce(s) Supporting Document(s) Magnesium [Mass/volume] in Serum or Plasma 1.8 MG/DL 1.7 - 2.2 [facility] ID Date Data Source [id number] 01/05/2021 06:57:00 AM EDT [facility] (Jon Elizondo MD) Name Value Range Interpretation Code Description Data Tavo rce(s) Supporting Document(s) Laboratory test finding (navigational concept) Laboratory test result [facility] (Jon Elizondo MD) COMPREHENSIVE METABOLIC PANEL Laboratory test finding (navigational concept) 141 meq/L 134-153 [facility] (Jon Elizondo MD) Laboratory test finding (navigational concept) 3.6 meq/L 3.6-5.0 [facility] (Jon Elizondo MD) Laboratory test finding (navigational concept) 30 meq/L 22-30 [facility] (Jon Elizondo MD) Laboratory test finding (navigational concept) 102 meq/L 98-107 [facility] (Jon Elizondo MD) Laboratory test finding (navigational concept) 32 mg/dL 7-21 Above high normal [facility] (Jon Elizondo MD) Laboratory test finding (navigational concept) 101 mg/dL 7 0-99 Above high normal [facility] (Jon Elizondo MD) Laboratory test finding (navigational concept) 1.4 mg/dL 0.7-1.5 [facility] (Jon Elizondo MD) Laboratory test finding (navigational concept) 23 8-27 [facility] (Jon Elizondo MD) Laboratory test finding (navigational concept) 6.1 g/dL 6 .3-8.2 Below low normal [facility] (Jon Elizondo MD) Laboratory test finding (navigational concept) 3.7 g/dL 3 .9-5.0 Below low normal [facility] (Jon Elizondo MD) Laboratory test finding (navigational concept) 1.5 0.8-2.0 [facility] (Jon Elizondo MD) Laboratory test finding (navigational concept) 2.4 GM/DL 2.4-3.2 [facility] (Jon Elizondo MD) Laboratory test finding (navigational concept) 0.7 mg/dL 0.2-1.3 [facility] (Jon Elizondo MD) Laboratory test finding (navigational concept) 9.5 mg/dL 8.4-10.2 [facility] (Jon Elizondo MD) Laboratory test finding (navigational concept) 18 U/L 5-40 [facility] (Jon Elizondo MD) Laboratory test finding (navigational concept) 243 U/L 38-126 Above high normal [facility] (Jon Elizondo MD) Laboratory test finding (navigational concept) 9.0 mmol/L 8.0-16.0 [facility] (Jon Elizondo MD) Laboratory test finding (navigational concept) 11 U/L 7-56 [facility] (Jon Elizondo MD) Laboratory test finding (navigational concept) 65 yrs [facility] (Jon Elizondo MD) Laboratory test finding (navigational concept) Laboratory test result [facility] (Jon Elizondo MD) Male GFR Interprentation 20-49 yrs >60 mL/min Normal 50-59 yrs >56 mL/min Normal 60-69 yrs >49 mL/min Normal 70-79yrs >42 mL/min Normal 80 and above >35 mL/min Normal Female GFR Interpretation 20-39 yrs >60 mL/min Normal 40-49 yrs >58 mL/min Normal 50-59 yrs >51 mL/min Normal 60-69 yrs >45 mL/min Normal 70-79 yrs >39 mL/min Normal 80 and above >32 mL/min Normal Laboratory test finding (navigational concept) 54 mL/min [facility] (Jon Elizondo MD) ID Date Data Source [id number] 01/05/2021 06:57:00 AM EDT [facility] (Jon Elizondo MD) Name Value Range Interpretation Code Description Data Tavo rce(s) Supporting Document(s) Laboratory test finding (navigational concept) Laboratory test result [facility] (Jon Elizondo MD) COMPLETE BLOOD COUNT Laboratory test finding (navigational concept) 3.23 10^6/uL 4 .50-6.30 Below low normal [facility] (Jon Elizondo MD) Laboratory test finding (navigational concept) 10.2 g/dL 1 4.0-16.0 Below low normal [facility] (Jon Elizondo MD) Laboratory test finding (navigational concept) 5.4 10^3/uL 4.2-11.0 [facility] (Jon Elizondo MD) Laboratory test finding (navigational concept) 31.8 % 4 1.0-51.0 Below low normal [facility] (Jon Elizondo MD) Laboratory test finding (navigational concept) 98.5 fL 8 0.0-94.0 Above high normal [facility] (Jon Elizondo MD) Laboratory test finding (navigational concept) 31.6 pg 27.0-34.0 [facility] (Jon Elizondo MD) Laboratory test finding (navigational concept) 16.5 % 1 1.5-14.8 Above high normal [facility] (Jon Elizondo MD) Laboratory test finding (navigational concept) 32.1 g/dL 31.0-36.0 [facility] (Jon Elizondo MD) Laboratory test finding (navigational concept) 168 10^3/uL 150-450 [facility] (Jon Elizondo MD) Laboratory test finding (navigational concept) 11.5 fL 7 .4-10.4 Above high normal [facility] (Jon Elizondo MD) Laboratory test finding (navigational concept) 8.5 % 3.0-8.0 Above high normal [facility] (Jon Elizondo MD) Laboratory test finding (navigational concept) 11.6 % 2 5.0-40.0 Below low normal [facility] (Jon Elizondo MD) Laboratory test finding (navigational concept) 77.2 % 37.0-80.0 [facility] (Jon Elizondo MD) Laboratory test finding (navigational concept) 1.7 % 0.0-7.0 [facility] (Jon Elizondo MD) Laboratory test finding (navigational concept) 0.6 % 0.0-2.0 [facility] (Jon Elizondo MD) Laboratory test finding (navigational concept) 0.0 % 0.0-0.0 [facility] (Jon Elizondo MD) Laboratory test finding (navigational concept) 0.4 % 0.0-0.0 Above high normal [facility] (Jon Elizondo MD) Laboratory test finding (navigational concept) 4.21 10^3/uL 2.00-6.90 [facility] (Jon Elizondo MD) Laboratory test finding (navigational concept) 0.63 10^3/uL 0.60-3.40 [facility] (Jon Elizondo MD) Laboratory test finding (navigational concept) 0.46 10^3/uL 0.00-0.90 [facility] (Jon Elizondo MD) Laboratory test finding (navigational concept) 0.09 10^3/uL 0.00-0.70 [facility] (Jon Elizondo MD) Laboratory test finding (navigational concept) 0.03 10^3/uL 0.00-0.20 [facility] (Jon Elizondo MD) Laboratory test finding (navigational concept) 0.02 10^3/uL 0.00-0.10 [facility] (Jon Elizondo MD) Laboratory test finding (navigational concept) 0.00 10^3/uL 0.00-0.00 [facility] (Jon Elizondo MD) Laboratory test finding (navigational concept) Laboratory test result [facility] (Jon Elizondo MD) Laboratory test finding (navigational concept) Laboratory test result [facility] (Jon Elizondo MD) ID Date Data Source [id number] 01/05/2021 09:00:00 AM EDT [facility] Name Value Range Interpretation Code Description Data Tavo rce(s) Supporting Document(s) COMPREHENSIVE METABOLIC PANEL [facility] COMPREHENSIVE METABOLIC PANEL Sodium [Moles/volume] in Serum or Plasma 141 mEq/L 134 - 153 [facility] Potassium [Moles/volume] in Serum or Plasma 3.6 mEq/L 3.6 - 5.0 [facility] Chloride [Moles/volume] in Serum or Plasma 102 mEq/L 98 - 107 [facility] Carbon dioxide, total [Moles/volume] in Serum or Plasma 30 MEQ/L 22 - 30 [facility] Glucose [Mass/volume] in Serum or Plasma 101 MG/DL 70 - 99 H [facility] BUN 32 MG/DL 7 - 21 H [facility] al Creatinine [Mass/volume] in Serum or Plasma 1.4 MG/DL 0.7 - 1.5 [facility] BUN/CREAT 23 8 - 27 [facility] Protein [Mass/volume] in Serum or Plasma 6.1 G/DL 6.3 - 8.2 L [facility] Albumin [Mass/volume] in Serum or Plasma 3.7 G/DL 3.9 - 5.0 L [facility] Globulin [Mass/volume] in Serum by calculation 2.4 GM/DL 2.4 - 3.2 [facility] A/G RATIO 1.5 0.8 - 2.0 [facility] Calcium [Mass/volume] in Serum or Plasma 9.5 MG/DL 8.4 - 10.2 [facility] Bilirubin.total [Mass/volume] in Serum or Plasma 0.7 MG/DL 0.2 - 1.3 [facility] Alkaline phosphatase [Enzymatic activity/volume] in Serum or Plasma 243 U/L 38 - 126 H [facility] Aspartate aminotransferase [Enzymatic activity/volume] in Serum or Plasma 18 U/L 5 - 40 [facility] Alanine aminotransferase [Enzymatic activity/volume] in Seru m or Plasma 11 U/L 7 - 56 [facility] Anion gap 3 in Serum or Plasma 9.0 mmol/L 8.0 - 16.0 [facility] AGE 65 yrs [facility] al NON-AA GFR 54 mL/min [facility] A[facility] AMER GFR >60 mL/min [facility] Male GFR In terprentation 20-49 yrs >60 mL/min Normal 50-59 yrs >56 mL/min Normal 60-69 yrs >49 mL/min Normal 70-79yrs >42 mL/min Normal 80 and above >35 mL/min Normal Female GFR Interpretation 20-39 yrs >60 mL/min Normal 40-49 yrs >58 mL/min Normal 50-59 yrs >51 mL/min Normal 60-69 yrs >45 mL/min Normal 70-79 yrs >39 mL/min Normal 80 and above >32 mL/min Normal ID Date Data Source [id number] 01/05/2021 08:58:00 AM EDT [facility] Name Value Range Interpretation Code Description Data Tavo rce(s) Supporting Document(s) CBC W/AUTOMATED DIFF [facility] COMPLETE BLOOD COUNT Leukocytes [#/volume] in Blood by Automated count 5.4 10^3/uL 4.2 - 1 1.0 [facility] Erythrocytes [#/volume] in Blood by Automated count 3.23 10^6/uL 4. 50 - 6.30 L [facility] Hemoglobin [Mass/volume] in Blood 10.2 g/dL 14.0 - 16.0 L [facility] Hematocrit [Volume Fraction] of Blood by Automated count 31.8 % 4 1.0 - 51.0 L [facility] Erythrocyte mean corpuscular volume [Entitic volume] by Auto mated count 98.5 fL 80.0 - 94.0 H [facility] Erythrocyte mean corpuscular hemoglobin [Entitic mass] by Automated count 31.6 pg 27.0 - 34.0 [facility] Erythrocyte mean corpuscular hemoglobin concentration [Mass/volume] by Automated count 32.1 g/dL 31.0 - 36.0 [facility] Erythrocyte distribution width [Ratio] by Automated count 16.5 % 11.5 - 14.8 H [facility] Platelets [#/volume] in Blood by Automated count 168 10^3/uL 150 - 45 0 [facility] Platelet mean volume [Entitic volume] in Blood by Automated count 11.5 fL 7.4 - 10.4 H [facility] Neutrophils/100 leukocytes in Blood by Automated count 77.2 % 37. 0 - 80.0 [facility] Lymphocytes/100 leukocytes in Blood by Manual count 11.6 % 25.0 - 40.0 L [facility] Monocytes/100 leukocytes in Blood by Automated count 8.5 % 3.0 - 8.0 H [facility] Eosinophils/100 leukocytes in Blood by Automated count 1.7 % 0.0 - 7.0 [facility] Basophils/100 leukocytes in Blood by Automated count 0.6 % 0.0 - 2.0 [facility] %IG 0.4 % 0.0 - 0.0 [facility] %NRBC 0.0 % 0.0 - 0.0 [facility] al Neutrophils [#/volume] in Blood by Automated count 4.21 10^3/uL 2.00 - 6.90 [facility] Lymphocytes [#/volume] in Blood by Automated count 0.63 10^3/uL 0.60 - 3.40 [facility] Monocytes [#/volume] in Blood by Automated count 0.46 10^3/uL 0.00 - 0.90 [facility] Eosinophils [#/volume] in Blood by Automated count 0.09 10^3/uL 0.00 - 0.70 [facility] Basophils [#/volume] in Blood by Automated count 0.03 10^3/uL 0.00 - 0.20 [facility] #IG 0.02 10^3/uL 0.00 - 0.10 [facility] #NRBC 0.00 10^3/uL 0.00 - 0.00 [facility] ospital MANUAL DIFF NOT INDICATED [facility] RBC MORPH NOT INDICATED [facility] ID Date Data Source [id number] 01/04/2021 07:10:00 PM EDT [facility] (Jon Elizondo MD) Name Value Range Interpretation Code Description Data Tavo rce(s) Supporting Document(s) Potassium [Moles/volume] in Serum or Plasma 4.1 meq/L 3.6-5.0 [facility] (Jon Elizondo MD) ID Date Data Source [id number] 01/04/2021 07:46:00 PM EDT [facility] Name Value Range Interpretation Code Description Data Tavo rce(s) Supporting Document(s) Potassium [Moles/volume] in Serum or Plasma 4.1 mEq/L 3.6 - 5.0 [facility] ID Date Data Source [id number] 01/04/2021 10:00:00 AM EDT [facility] (Jon Elizondo MD) Name Value Range Interpretation Code Description Data Tavo rce(s) Supporting Document(s) Troponin T.cardiac [Mass/volume] in Serum or Plasma 0.02 ng/mL 0.00-0 .10 [facility] (Jon Elizondo MD) TROPONIN T 0.1 ng/ml Recommended as the clinical th reshold value for Troponin T. ID Date Data Source [id number] 01/04/2021 10:39:00 AM EDT [facility] Name Value Range Interpretation Code Description Data Tavo rce(s) Supporting Document(s) TROPONIN T 0.02 NG/ML 0.00 - 0.10 [facility] spital TROPONIN T0.1 ng/ml Recommended as the c linical threshold value forTroponin T. ID Date Data Source [id number] 01/04/2021 05:00:00 AM EDT [facility] (Jon Elizondo MD) Name Value Range Interpretation Code Description Data Tavo rce(s) Supporting Document(s) Iron [Mass/volume] in Serum or Plasma 41 ug/dL 42-135 Below low normal [facility] (Jon Elizondo MD) Magnesium [Mass/volume] in Serum or Plasma 1.8 mg/dL 1.7-2.2 [facility] (Jon Elizondo MD) ID Date Data Source [id number] 01/04/2021 07:00:00 AM EDT [facility] Name Value Range Interpretation Code Description Data Tavo rce(s) Supporting Document(s) Iron [Mass/volume] in Serum or Plasma 41 UG/DL 42 - 135 L [facility] ID Date Data Source [id number] 01/04/2021 06:58:00 AM EDT [facility] Name Value Range Interpretation Code Description Data Tavo rce(s) Supporting Document(s) Magnesium [Mass/volume] in Serum or Plasma 1.8 MG/DL 1.7 - 2.2 [facility] ID Date Data Source [id number] 01/04/2021 04:55:00 AM EDT [facility] (Jon Elizondo MD) Name Value Range Interpretation Code Description Data Tavo rce(s) Supporting Document(s) Laboratory test finding (navigational concept) Laboratory test result [facility] (Jon Elizondo MD) COMPLETE BLOOD COUNT Laboratory test finding (navigational concept) 5.9 10^3/uL 4.2-11.0 [facility] (Jon Elizondo MD) Laboratory test finding (navigational concept) 3.21 10^6/uL 4 .50-6.30 Below low normal [facility] (Jon Elizondo MD) Laboratory test finding (navigational concept) 10.1 g/dL 1 4.0-16.0 Below low normal [facility] (Jon Elizondo MD) Laboratory test finding (navigational concept) 32.0 % 4 1.0-51.0 Below low normal [facility] (Jon Elizondo MD) Laboratory test finding (navigational concept) 31.5 pg 27.0-34.0 [facility] (Jon Elizondo MD) Laboratory test finding (navigational concept) 99.7 fL 8 0.0-94.0 Above high normal [facility] (Jon Elizondo MD) Laboratory test finding (navigational concept) 17.0 % 1 1.5-14.8 Above high normal [facility] (Jon Elizondo MD) Laboratory test finding (navigational concept) 31.6 g/dL 31.0-36.0 [facility] (Jon Elizondo MD) Laboratory test finding (navigational concept) 76.5 % 37.0-80.0 [facility] (Jon Elizondo MD) Laboratory test finding (navigational concept) 11.2 fL 7 .4-10.4 Above high normal [facility] (Jon Elizondo MD) Laboratory test finding (navigational concept) 159 10^3/uL 150-450 [facility] (Jon Elizondo MD) Laboratory test finding (navigational concept) 8.0 % 3.0-8.0 [facility] (Jon Elizondo MD) Laboratory test finding (navigational concept) 12.8 % 2 5.0-40.0 Below low normal [facility] (Jon Elizondo MD) Laboratory test finding (navigational concept) 0.3 % 0.0-2.0 [facility] (Jon Elizondo MD) Laboratory test finding (navigational concept) 2.1 % 0.0-7.0 [facility] (Jon Elizondo MD) Laboratory test finding (navigational concept) 0.3 % 0.0-0.0 Above high normal [facility] (Jon Elizondo MD) Laboratory test finding (navigational concept) 0.0 % 0.0-0.0 [facility] (Jon Elizondo MD) Laboratory test finding (navigational concept) 0.75 10^3/uL 0.60-3.40 [facility] (Jon Elizondo MD) Laboratory test finding (navigational concept) 4.47 10^3/uL 2.00-6.90 [facility] (Jon Elizondo MD) Laboratory test finding (navigational concept) 0.12 10^3/uL 0.00-0.70 [facility] (Jon Elizondo MD) Laboratory test finding (navigational concept) 0.47 10^3/uL 0.00-0.90 [facility] (Jon Elizondo MD) Laboratory test finding (navigational concept) 0.02 10^3/uL 0.00-0.20 [facility] (Jon Elizondo MD) Laboratory test finding (navigational concept) 0.02 10^3/uL 0.00-0.10 [facility] (Jon Elizondo MD) Laboratory test finding (navigational concept) 0.00 10^3/uL 0.00-0.00 [facility] (Jon Elizondo MD) Laboratory test finding (navigational concept) Laboratory test result [facility] (Jon Elizondo MD) Laboratory test finding (navigational concept) Laboratory test result [facility] (Jon Elizondo MD) ID Date Data Source [id number] 01/04/2021 04:55:00 AM EDT [facility] (Jon Elizondo MD) Name Value Range Interpretation Code Description Data Tavo rce(s) Supporting Document(s) Laboratory test finding (navigational concept) 142 meq/L 134-153 [facility] (Jon Elizondo MD) Laboratory test finding (navigational concept) Laboratory test result [facility] (Jon Elizondo MD) COMPREHENSIVE METABOLIC PANEL Laboratory test finding (navigational concept) 27 meq/L 22-30 [facility] (Jon Elizondo MD) Laboratory test finding (navigational concept) 3.6 meq/L 3.6-5.0 [facility] (Jon Elizondo MD) Laboratory test finding (navigational concept) 103 meq/L 98-107 [facility] (Jon Elizondo MD) Laboratory test finding (navigational concept) 104 mg/dL 7 0-99 Above high normal [facility] (Jon Elizondo MD) Laboratory test finding (navigational concept) 27 mg/dL 7-21 Above high normal [facility] (Jon Elizondo MD) Laboratory test finding (navigational concept) 23 8-27 [facility] (Jon Elizondo MD) Laboratory test finding (navigational concept) 1.2 mg/dL 0.7-1.5 [facility] (Jon Elizondo MD) Laboratory test finding (navigational concept) 4.2 g/dL 3.9-5.0 [facility] (Jon Elizondo MD) Laboratory test finding (navigational concept) 6.2 g/dL 6 .3-8.2 Below low normal [facility] (Jon Elizondo MD) Laboratory test finding (navigational concept) 2.1 0.8-2.0 Above high normal [facility] (Jon Elizondo MD) Laboratory test finding (navigational concept) 2.0 GM/DL 2 .4-3.2 Below low normal [facility] (Jon Elizondo MD) Laboratory test finding (navigational concept) 9.5 mg/dL 8.4-10.2 [facility] (Jon Elizondo MD) Laboratory test finding (navigational concept) 0.9 mg/dL 0.2-1.3 [facility] (Jon Elizondo MD) Laboratory test finding (navigational concept) 254 U/L 38-126 Above high normal [facility] (Jon Elizondo MD) Laboratory test finding (navigational concept) 12.0 mmol/L 8.0-16.0 [facility] (Jon Elizondo MD) Laboratory test finding (navigational concept) 20 U/L 5-40 [facility] (Jon Elizondo MD) Laboratory test finding (navigational concept) 12 U/L 7-56 [facility] (Jon Elizondo MD) Laboratory test finding (navigational concept) 65 yrs [facility] (Jon Elizondo MD) Laboratory test finding (navigational concept) Laboratory test result [facility] (Jon Elizondo MD) Laboratory test finding (navigational concept) Laboratory test result [facility] (Jon Elizondo MD) Male GFR Interprentation 20-49 yrs >60 mL/min Normal 50-59 yrs >56 mL/min Normal 60-69 yrs >49 mL/min Normal 70-79yrs >42 mL/min Normal 80 and above >35 mL/min Normal Female GFR Interpretation 20-39 yrs >60 mL/min Normal 40-49 yrs >58 mL/min Normal 50-59 yrs >51 mL/min Normal 60-69 yrs >45 mL/min Normal 70-79 yrs >39 mL/min Normal 80 and above >32 mL/min Normal ID Date Data Source [id number] 01/04/2021 04:55:00 AM EDT [facility] (Jon Elizondo MD) Name Value Range Interpretation Code Description Data Tavo rce(s) Supporting Document(s) Troponin T.cardiac [Mass/volume] in Serum or Plasma 0.02 ng/mL 0.00-0 .10 [facility] (Jon Elizondo MD) TROPONIN T 0.1 ng/ml Recommended as the clinical th reshold value for Troponin T. ID Date Data Source [id number] 01/04/2021 06:03:00 AM EDT [facility] Name Value Range Interpretation Code Description Data Tavo rce(s) Supporting Document(s) COMPREHENSIVE METABOLIC PANEL [facility] COMPREHENSIVE METABOLIC PANEL Sodium [Moles/volume] in Serum or Plasma 142 mEq/L 134 - 153 [facility] Potassium [Moles/volume] in Serum or Plasma 3.6 mEq/L 3.6 - 5.0 [facility] Chloride [Moles/volume] in Serum or Plasma 103 mEq/L 98 - 107 [facility] Carbon dioxide, total [Moles/volume] in Serum or Plasma 27 MEQ/L 22 - 30 [facility] Glucose [Mass/volume] in Serum or Plasma 104 MG/DL 70 - 99 H [facility] BUN 27 MG/DL 7 - 21 H [facility] al Creatinine [Mass/volume] in Serum or Plasma 1.2 MG/DL 0.7 - 1.5 [facility] BUN/CREAT 23 8 - 27 [facility] Protein [Mass/volume] in Serum or Plasma 6.2 G/DL 6.3 - 8.2 L [facility] Albumin [Mass/volume] in Serum or Plasma 4.2 G/DL 3.9 - 5.0 [facility] Globulin [Mass/volume] in Serum by calculation 2.0 GM/DL 2.4 - 3.2 L [facility] A/G RATIO 2.1 0.8 - 2.0 [facility] Calcium [Mass/volume] in Serum or Plasma 9.5 MG/DL 8.4 - 10.2 [facility] Bilirubin.total [Mass/volume] in Serum or Plasma 0.9 MG/DL 0.2 - 1.3 [facility] Alkaline phosphatase [Enzymatic activity/volume] in Serum or Plasma 254 U/L 38 - 126 H [facility] Aspartate aminotransferase [Enzymatic activity/volume] in Serum or Plasma 20 U/L 5 - 40 [facility] Alanine aminotransferase [Enzymatic activity/volume] in Seru m or Plasma 12 U/L 7 - 56 [facility] Anion gap 3 in Serum or Plasma 12.0 mmol/L 8.0 - 16.0 [facility] AGE 65 yrs [facility] al NON-AA GFR >60 mL/min [facility] ital AFR AMER GFR >60 mL/min [facility] spital Male GFR In terprentation 20-49 yrs >60 mL/min Normal 50-59 yrs >56 mL/min Normal 60-69 yrs >49 mL/min Normal 70-79yrs >42 mL/min Normal 80 and above >35 mL/min Normal Female GFR Interpretation 20-39 yrs >60 mL/min Normal 40-49 yrs >58 mL/min Normal 50-59 yrs >51 mL/min Normal 60-69 yrs >45 mL/min Normal 70-79 yrs >39 mL/min Normal 80 and above >32 mL/min Normal ID Date Data Source [id number] 01/04/2021 05:29:00 AM EDT [facility] Name Value Range Interpretation Code Description Data [facility] Supporting Document(s) TROPONIN T 0.02 NG/ML 0.00 - 0.10 [facility] spital TROPONIN T0.1 ng/ml Recommended as the c linical threshold value forTroponin T. ID Date Data Source [id number] 01/04/2021 05:04:00 AM EDT [facility] Name Value Range Interpretation Code Description Data [facility](s) Supporting Document(s) CBC W/AUTOMATED DIFF [facility] COMPLETE BLOOD COUNT Leukocytes [#/volume] in Blood by Automated count 5.9 10^3/uL 4.2 - 1 1.0 [facility] Erythrocytes [#/volume] in Blood by Automated count 3.21 10^6/uL 4. 50 - 6.30 L [facility] Hemoglobin [Mass/volume] in Blood 10.1 g/dL 14.0 - 16.0 L [facility] Hematocrit [Volume Fraction] of Blood by Automated count 32.0 % 4 1.0 - 51.0 L [facility] Erythrocyte mean corpuscular volume [Entitic volume] by Auto mated count 99.7 fL 80.0 - 94.0 H [facility] Erythrocyte mean corpuscular hemoglobin [Entitic mass] by Automated count 31.5 pg 27.0 - 34.0 [facility] Erythrocyte mean corpuscular hemoglobin concentration [Mass/volume] by Automated count 31.6 g/dL 31.0 - 36.0 [facility] Erythrocyte distribution width [Ratio] by Automated count 17.0 % 11.5 - 14.8 H [facility] Platelets [#/volume] in Blood by Automated count 159 10^3/uL 150 - 45 0 [facility] Platelet mean volume [Entitic volume] in Blood by Automated count 11.2 fL 7.4 - 10.4 H [facility] Neutrophils/100 leukocytes in Blood by Automated count 76.5 % 37. 0 - 80.0 [facility] Lymphocytes/100 leukocytes in Blood by Manual count 12.8 % 25.0 - 40.0 L [facility] Monocytes/100 leukocytes in Blood by Automated count 8.0 % 3.0 - 8.0 [facility] Eosinophils/100 leukocytes in Blood by Automated count 2.1 % 0.0 - 7.0 [facility] Basophils/100 leukocytes in Blood by Automated count 0.3 % 0.0 - 2.0 [facility] %IG 0.3 % 0.0 - 0.0 [facility] al %NRBC 0.0 % 0.0 - 0.0 [facility] al Neutrophils [#/volume] in Blood by Automated count 4.47 10^3/uL 2.00 - 6.90 [facility] Lymphocytes [#/volume] in Blood by Automated count 0.75 10^3/uL 0.60 - 3.40 [facility] Monocytes [#/volume] in Blood by Automated count 0.47 10^3/uL 0.00 - 0.90 [facility] Eosinophils [#/volume] in Blood by Automated count 0.12 10^3/uL 0.00 - 0.70 [facility] Basophils [#/volume] in Blood by Automated count 0.02 10^3/uL 0.00 - 0.20 [facility] #IG 0.02 10^3/uL 0.00 - 0.10 [facility] ospital #NRBC 0.00 10^3/uL 0.00 - 0.00 [facility] ospital MANUAL DIFF NOT INDICATED [facility] RBC MORPH NOT INDICATED [facility] sp[facility] ID Date Data Source [id number] 01/03/2021 11:00:00 PM EDT [facility] (Jon Elizondo MD) Name Value Range Interpretation Code Description Data Tavo rce(s) Supporting Document(s) Troponin T.cardiac [Mass/volume] in Serum or Plasma 0.02 ng/mL 0.00-0 .10 [facility] (Jon Elizondo MD) TROPONIN T 0.1 ng/ml Recommended as the clinical th reshold value for Troponin T. ID Date Data Source [id number] 01/03/2021 11:29:00 PM EDT [facility] Name Value Range Interpretation Code Description Data Tavo rce(s) Supporting Document(s) TROPONIN T 0.02 NG/ML 0.00 - 0.10 [facility] spital TROPONIN T0.1 ng/ml Recommended as the c linical threshold value Titusropomeghan T. ID Date Data Source [id number] 01/03/2021 10:40:00 PM EDT [facility] [address] [place] [address] PHONE: [phone] FAX: [phone] Name .................. : FERNIE Charlton Acct Number.................. : [id number] ROOM. ................. : 109-1 Number ................... : [id number] Stay type ............. : O/P Discharge Date......... ... : Admit Date ......... : 01/03/21 Admit Phys .................... : CARO WILMA Date of ....... : 1955 Family Phys ................... : CARO WILMA Phone .................. : [phone] Age ................................ : 65 Film# .................. .:[id number] Sex ................................. : M Unsigned transcriptions are preliminary reports and do not represent a medical or legal document CT THORAX W/O CONTRAST [id number] COMPLETE:01/03/21 15:57 CHRISTINE [id number] Reason(s): CHF CT CHEST WITHOUT IV CONTRAST INDICATION: Congestive heart failure COMPARISON: Chest x-ray 01/03/2021, CT 06/29/2019 CONTRAST: None One or more of the following dose reduction techniques were utilized in effectively lowering the radiation dose for this examination: Automated Exposure Control, Adjustment of the mA and/or kV according to patient size, or Iterative reconstruction. FINDINGS: LUNGS: Scattered calcified granulomata both lungs. Mild compressive atelectasis in both lower lobes. PLEURA AND PERICARDIUM: Moderate bilateral pleural effusions. MEDIASTINUM AND OLE: No mediastinal or h ilar adenopathy or masses. 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 Extensive coronary arterial calcification. Central pulmonary vessels are prominent. Prosthetic mitral valve. CHEST WALL: No axillary adenopathy. SKELETAL: Mild disc space narrowing and endplate osteophytes thoracic spine. UPPER ABDOMEN: Moderate amount of free fluid in the abdomen. 5 mm stone in the gallbladder. IMPRESSION: 1. Moderate bilateral pleural effusions. Page 1 of 2 [place] [address] PHONE: [phone] FAX: [phone] Name .................. : FERNIE Charlton Acct Number.................. : [id number] ROOM. ................. : 109-1 Number ................... : [id number] Stay type ............. : O/P Discharge Date......... ... : Admit Date ......... : 01/03/21 Admit Phys .................... : CARO DILLON Date of ....... : 1955 Family Phys ................... : CARO WILMA Phone .................. : [phone] Age ................................ : 65 Film# .................. .:[id number] Sex ................................. : M Unsigned transcriptions are preliminary reports and do not represent a medical or legal document CT THORAX W/O CONTRAST [id number] COMPLETE:01/03/21 15:57 CHRISTINE [id number] Reason(s): CHF 2. Mild compressive atelectasis both lower lobes. 3. Prior cardiac surgery. 4. Moderate amount of free fluid in the upper abdomen. 5. Gallstone. Electronically Reviewed and Signed By Jose Norris MD , 01/03/21 22:40, JWS Transcribe Initials: ARACELY , Transcribe Date: 01/03/21 21:12, Dictation Date: Copy for: CARO ACOSTA via modem Copy for: EMERGENCY DEPT via modem Copy for: 710 MED REC Page 2 of 2 Name Value Range Interpretation Code Description Data Tavo rce(s) Supporting Document(s) ID Date Data Source [id number] 01/03/2021 10:40:00 PM EDT [facility] [address] [place] [address] PHONE: [phone] FAX: [phone] Name .................. : FERNIECECILIA Charlton Acct Number.................. : [id number] ROOM. ................. : 109-1 Number ................... : [id number] Stay type ............. : O/P Discharge Date......... ... : Admit Date ......... : 01/03/21 Admit Phys .................... : CARO WILMA Date of ....... : 1955 Family Phys ................... : CARO WILMA Phone .................. : [phone] Age ................................ : 65 Film# .................. .:[id number] Sex ................................. : M Unsigned transcriptions are preliminary reports and do not represent a medical or legal document CHEST PORTABLE [id number] COMPLETE:01/03/21 14:32 [facility] [id number] Reason(s): CHF PORTABLE CHEST SINGLE VIEW OBTAINED AT 2:10 PM HISTORY: CHF COMPARISON: 04/15/2019 FINDINGS: The heart is moderately enlarged. Multiple sternal wires and mediastinal clips. Pacemaker is present with atrial and ventricular leads. The pulmonary vessels are prominent. Increased interstitial markings both lungs. Small right pleural effusion. Patchy increased density right lower lobe which is probably compressive atelectasis. No left effusion. IMPRESSION: Congestive heart failure with interstitial edema. Small right pleural effusion and right lower lobe consolidation which is probably compressive atelectasis. Electronically Reviewed and Signed By Jose Norris MD , 01/03/21 22:40, JWS Transcribe Initials: ARACELY , Transcribe Date: 01/03/21 20:43, Dictation Date: Copy for: CARO ACOSTA via modem Copy for: EMERGENCY DEPT via modem Copy for: 710 MED REC Page 1 of 1 Name Value Range Interpretation Code Description Data Tavo rce(s) Supporting Document(s) ID Date Data Source [id number] 01/03/2021 06:30:00 PM EDT [facility] (Jon Elizondo MD) Name Value Range Interpretation Code Description Data Tavo rce(s) Supporting Document(s) Troponin T.cardiac [Mass/volume] in Serum or Plasma 0.02 ng/mL 0.00-0 .10 [facility] (Jon Elizondo MD) TROPONIN T 0.1 ng/ml Recommended as the clinical th reshold value for Troponin T. ID Date Data Source [id number] 01/03/2021 07:08:00 PM EDT [facility] Name Value Range Interpretation Code Description Data Tavo rce(s) Supporting Document(s) TROPONIN T 0.02 NG/ML 0.00 - 0.10 [facility] spital TROPONIN T0.1 ng/ml Recommended as the c linical threshold value forTroponin T. ID Date Data Source [id number] 01/03/2021 01:38:00 PM EDT [facility] 1 OrderSheet [facility] Emergency Department [address] [place] [address] Phone #: ext- [phone] 01/03/2021 13:37 Patient: ADEBAYO LIANG Sex: M : 1955 Age: 65yWEIGHT:90.2 kg (S) HEIGHT:69 inches (S) BMI:29.4ALLERGIES: TelticionCHIEF COMPLAINT: dyspnea, CHFDIAGNOSIS: Congestive heart failure, Pleural effusionLAB ORDERSOrder Description Priority Entered Acknowledged InitialedCMP STAT 13:59 01/03/2021 14:06 Ihsan Schwarz Jack ; Maury CovarrubiasCBC w Diff STAT 13:01/03/2021 14:06 Ihsan Schwarz Jack ; Maury CovarrubiasTroponin-T STAT 13:01/03/2021 14:06 Ihsan Schwarz Jack ; Maury CovarrubiasBNP STAT 13:59 01/03/2021 14:06 Ihsan Schwarz Jack ; Maury CovarrubiasCOVID-19 CAH (Not STAT 14:52 01/03/2021 15:10 Karishma,Symptomatic as Wilfrid Champagne ; Maury CovarrubiasDefined by CDC)(01/03/2021) (NotFirst Test) (NotHospitalized) (Not) (NotResident inCongregate CareSetting) (NotEmployed inHealthcare Setting)DIAGNOSTIC STUDY ORDERSOrder Description Priority Entered Acknowledged InitialedChest Portable 1 STAT 13:59 01/03/2021 14:05 Karishma,View Wilfrid Champagne ; Maury Covarrubias(Oxygen?(No)) Reason for Study: CHF, Shortness of BreathCT Chest W/O Cont STAT 14:52 01/03/2021 14:57 Karishma,(Oxygen?(No)) Wilfrid Champagne ; Maury Covarrubias Reason for Study: CHF 2 OrderSheet [facility] [address] [place] [address] Phone #: ext- [phone] 01/03/2021 13:37 Patient: ADEBAYO LIANG Sex: M : 1955 Age: 65yMEDICATION/IV/DRIP/FLUID ORDERSOrder Description Priority Entered Acknowledged InitialedLasix IVP 80 mg 14:52 01/03/2021 15:11 Karishma,(NOW x1) Wilfrid Champagne R.N.GENERAL ORDERSOrder Description Priority Entered Acknowledged InitialedEKG 13:59 01/03/2021 14:06 Karishma, Wilfrid Champagne ; Maury Covarrubias[Electronically signed by Maury Schwarz R.N. (18:10 01/03/2021)][Electronically signed by Wilfrid Champagne (18:17 01/03/2021)][Electronically locked by Maury Schwarz R.N. (18:10 01/03/2021)] Name Value Range Interpretation Code Description Data Tavo rce(s) Supporting Document(s) ID Date Data Source [id number] 01/03/2021 01:38:00 PM EDT [facility] 1 Medication Reconciliation Report [facility] [address] [place] [address] Phone #: ext- [phone] 01/03/2021 13:37 Patient: ADEBAYO LIANG Sex: M : 1955 Age: 65yWeight: 90.2 kgHeight/Length: 69 in.BMI: 29.4ALLERGIES: TelticionThe patient's Home Medications are listed below:THE FOLLOWING MEDICATIONS NEED TO BE RECONCILED: Allopurinol Oral (300 mg), daily Aspirin Oral (325 mg), daily Atorvastatin Calcium Oral (80 mg) 1 tablet, daily Entresto Oral (49-51 mg) 1 tablet, 2x a day Ferrous Sulfate Iron Oral 324mg , 2x a day Fluticasone Propionate Nasal (93 mcg/act) 2 spray, daily Lasix Oral (40 mg), 2x a day Levothyroxine Sodium Oral (75 mcg), daily Loratadine Childrens Oral 10mg, daily Magnesium Oral (400 mg), daily Metoprolol Succinate ER Oral (25 mg) 1 tablet, daily Multi Vitamin Daily Oral Nitroglycerin Sublingual (0.4 mg), prn [place] Extract Oral 324 mg, 2x a day PriLOSEC Oral (10 mg) 2 packets, daily 2 Medi cation Reconciliation Report [facility] [address] [place] [address] Phone #: ext- [phone] 01/03/2021 13:37 Patient: ADEBAYO LIANG Sex: M : 1955 Age: 65y Vitamin c OralThe source(s) of the original Home Medication information:Not obtained.The following Medications were given to the patient in the Emergency Department:Lasix [IVP] IVP 80 mg, administered: 15:01/03/2021The following Medications were prescribed to the patient:None. Name Value Range Interpretation Code Description Data Tavo rce(s) Supporting Document(s) ID Date Data Source [id number] 01/03/2021 01:38:00 PM EDT [facility] 1 Medication Administration Record [facility] [address] [place] [address] Phone #: [phone] bhv- [phone] 01/03/2021 13:37 Patient: ADEBAYO LIANG Sex: M : 1955 Age: 65yWeight: 90.2 kgHeight/Length: 69 inBMI: 29.4ALLERGIES: Telticion Date/Time Medication Administered Medication OrderedGiven LASIX [IVP] Lasix IVP 80 mg (NOW x1)15:01/03/2021 Dose: 80 mg Maury Waterman R.N. Site: 1 [facility] Name Value Range Interpretation Code Description Data Tavo e(s) Supporting Document(s) ID Date Data Source [id number] 01/03/2021 01:38:00 PM EDT [facility] 1 General Instructions [facility] [address] [place] [address] Phone #: ext- [phone] 01/03/2021 13:37 Patient: ADEBAYO LIANG Sex: M : 1955 Age: 65yAcute systolic, congestive heart failure.Medium-sized right and small left pleural effusion associated with acute congestive left ventricular failure.(Electronically signed by Wilfrid Champagne 01/03/2021 18:17) Name Value Range Interpretation Code Description Data Tavo rce(s) Supporting Document(s) ID Date Data Source [id number] 01/03/2021 01:38:00 PM EDT [facility] 1 Clinical Report - Nurses [facility] [address] [place] [address] Phone #: ext- [phone] 01/03/2021 13:37 Patient: ADEBAYO LIANG Sex: M : 1955 Age: 65yTRIAGEArrived by private vehicle. Historian: patient. Accompanied by family. ( shortness of breath for 2 weekslast few days , has been gaining weight, swelling in legs and ankles, is scheduled for angioplasty 01/15, buthas increase of shortness of breath and cannot lay down to seleep).Acuity: LEVEL 3.Chief Complaint: SHORTNESS OF BREATH.Alert.Onset. (2 weeks).Treatment BRIAR WOOD SORTER:None.SEPSIS SCREEN: SIRS SCREEN NEGATIVE. SEPSIS SCREEN NEGATIVE. No suspected or confirmedsigns of infection present. --13:50 01/03/21 Edith Patel R.N.13:42 01/03/21. BP: 147/71. MAP: 96. HR: 63. RR: 26. O2 saturation: 100%. Temp: 97 F. Pain level now:07/20. --13:50 01/03/21 Edith Patel R.N.Weight: 90.2 kg stated. Height/Length: 69 inches Per Patient. BMI: 29.4. --13:41 01/03/21 Edith Patel R.N.MedicationsAllopurinol Oral (Tablet 300 mg), daily. Aspirin Oral (Tablet 325 mg), daily. Atorvastatin Calcium Oral (Tablet 80 mg) 1 tablet, daily. Entresto Oral (Tablet 49-51 mg) 1 tablet, 2x a day. Ferrous Sulfate Iron Oral 324mg , 2x a day. Fluticasone Propionate Nasal (Exhaler Suspension 93 mcg/act) 2 spray, daily. Loratadine Childrens Oral 10mg, daily. Magnesium Oral (Capsule 400 mg), daily. Metoprolol Succinate ER Oral (Tablet Extended Release 24 Hour 25 mg) 1 tablet, daily. Multi Vitamin Daily Oral. Nitroglycerin Sublingual (Tablet Sublingual 0.4 mg), as needed. [place] Extract Oral 324 mg, 2x a day. PriLOSEC Oral (Packet 10 mg) 2 packets, daily. --13:52 01/03/21 Edith Patel R.N. Vitamin c Oral. --13:52 01/03/21 Edith aPtel R.N. Lasix Oral (Tablet 40 mg), 2x a day. --13:53 01/03/21 Edith Patel R.N. Levothyroxine Sodium Oral (Tablet 75 mcg), daily. --13:53 01/03/21 Edith Patel R.N. 2 Clinical Report - Nurses [facility] [address] [place] [address] Phone #: ext- [phone] 01/03/2021 13:37 [id number] Sex: M : 1955 Age: 65yAllergiesTelticion.(hives) (cholesterol med) --13:52 01/03/21 Edith Patel R.N.PROBLEMS:Coronary Artery Disease.Dyspnea.CVA - Cerebrovascular Accident.Gout.Asthma.COPD - Chronic Obstructive Pulmonary Disease.Congestive Heart Failure.Pneumonia.PVD.URI.Sleep Apnea.Hypercholesterolemia.Heart Disease.Hypertension.Hypoxia.Hypothyroidism. --13:53 01/03/21 Edith Patel R.N.Atypical Chest Pain.Cad. --16:30 01/03/21 Maury Schwarz R.N.ADDITIONAL SURGERIES:"Watchman" filter placed Feb 2018, Stopped xarelto.Back Surgery.CABG x2 (1999 2012).Cardiac stents.Cardiac Surgery.Cataract Surgery.Deviated septum.Pacemaker.R groin femoral artery cleaned out.. --13:53 01/03/21 Edith Patel R.N.HistoryPAST MEDICAL HX: Immunizations: up-to-date.SOCIAL HX: Light tobacco smoker- less than 1/2 a pack per day. Occasional alcohol use. No drug use.He was offered HIV testing but declined and hepatitis C testing but declined. He has not traveled [place]Infectious disease exposure: The patient was not exposed to Coronavirus. (has been vaccinated for covid).Patient is not a known carrier of tuberculosis, hepatitis, HIV, MRSA or VRE. Patient is not a known carrierof CRE.SELF HARM ASSESSMENT: Self harm assessment was performed. The patient answered "no" to the 3 Clinical Report - Nurses [facility] [address] [place] [address] Phone #: ext- [phone] 01/03/2021 13:37 Patient: ADEBAYO LIANG Sex: M : 1955 Age: 65y question(s) "Have you recently felt down, depressed, or hopeless?" and "Do you have thoughts of harming or killing yourself?". ABUSE ASSESSMENT: Abuse assessment. Abuse denied. No suspicion of abuse. No report of abuse. NUTRITIONAL RISK ASSESSMENT: The nutritional risk assessment revealed no deficiencies. FUNCTIONAL ASSESSMENT: Functional assessment: no impairments noted. LEARNING NEEDS ASSESSMENT: The learning needs assessment revealed no barriers. FALL RISK ASSESSMENT: Fall risk assessment completed. No risk factors identified. SKIN INTEGRITY ASSESSMENT: Skin integrity risk assessment completed. No skin integrity risk identified. --13:50 01/03/21 Edith Patel R.N. FAMILY HX: (non- contributory at his age). --14:03 01/03/21 Wilfrid Champagne. Interventions Identification band on patient. To treatment room. --13:50 01/03/21 Edith Patel R.N.PHYSICAL FLDFYDBAIF27:05 01/03/21. To room via wheelchair. Patient gowned.GENERAL / NEURO / PSYCH: Alert. Oriented X 4. Appears in no acute distress.HEENT: Mucous membranes are pink.RESPIRATORY: No respiratory distress. Respirations not labored. Chest nontender. Breath soundswithin normal limits.CVS: Capillary refill less than 2 seconds.GI / : Abdomen soft and nontender. Bowel sounds within normal limits.SKIN: Skin is warm and dry. Normal skin turgor. --14:15 01/03/21 Maury Schwarz R.N.NURSING PROGRESS NOTESCardiac monitor, NIBP monitor and pulse oximeter placed on patient. Patient gowned. Reassurancegiven. Two patient identifiers checked. Call light placed in reach. Side rails up x 2. Bed placed inlowest position. Brakes of bed on. Patient ready for evaluation. --13:54 01/03/21 Edith Patel R.N. EKG time: (13:55 01/03/2021). EKG was performed by a nurse and shown to the ED physician. --14:01 01/03/21 Edith Patel R.N. 15:01 01/03/2021 Site #1 started via IV in the left antecubital space with an 20g angiocath, with aseptic technique and good blood return; one attempt. Saline lock flushed with 10 mL saline. --15:11 01/03/21 Maury Schwarz R.N. 15:06 01/03/2021 Lasix IVP 80 mg given over 2 minute(s) via site #1. Allergies verified and confirmed 5 4 Clinical Report - Nurses [facility] [address] [place] [address] Phone #: ext- [phone] 01/03/2021 13:37 [id number] Sex[facility] M : 1955 Age: 65y rights. IV patency established. IV site checked: no pain, redness, or swelling. IV flushed thoroughly pre- and post-medication administration. IVP given by RN. Information reviewed with patient including reason for taking this medication, signs of allergic reaction and precautions. Verbalizes understanding. --15:11 01/03/21 Maury Schwarz R.N. 16:28 01/03/21. Reassurance given. Reassessment acuity: LEVEL 3. The patient reports no complaints, he is calm and resting quietly and he has had no adverse reaction. Overall patient status is improved- he states feels better. RESPIRATORY: No respiratory distress. Two patient identifiers checked. Call light placed in reach. Bed placed in lowest position. Brakes of bed on. --16:28 01/03/21 Maury Schwarz R.N. 16:34 01/03/21. equipment monitor phototypesetting, NIBP monitor and pulse oximeter placed on patient; monitor alarms on; see monitor strips. --16:34 01/03/21 Maury Schwarz R.N. Cardiac rhythm: 100% atrial pacing; (60 atrial rate). Reassurance given. Reassessment acuity: LEVEL 3. The patient reports no complaints, he is calm and resting quietly and he has had no adverse reaction. Overall patient status is improved- he states feels better. RESPIRATORY: No respiratory distress. Two patient identifiers checked. Call light placed in reach. Bed placed in lowest position. Brakes of bed on. --17:38 01/03/21 Maury Schwarz R.N. Intake Output 16:28 01/03/21. Urine output: 450 mL measured, voided with return of yellow-colored clear urine. Urine: normal smelling. --16:28 01/03/21 Maury Schwarz R.N. 17:30 01/03/21. Urine output: 200 mL measured, voided with return of yellow-colored clear urine. Urine: normal smelling. --17:46 01/03/21 Maury Schwarz R.N.DISPOSITION / DISCHARGE 17:46 01/03/21. Cardiac rhythm: 100% atrial pacing; (atrial rate60). Condition at departure: improved and stable. Admitted to the Acute Inpatient Unit, Monitored. Transported via stretcher by nurse with monitor and mask. Report was given to a nurse via a phone call and visit overview. Report included information regarding patient's treatment, allergies and condition including: recent changes, current vital signs and abnormal labs. Report included treatment information regarding medications given or pending. All questions were answered. Report was acknowledged and care was transferred. (Justine). Bed obtai anatoly and ready (109). Patient's personal items; items were transported with the patient. --17:47 01/03/21 Maury Schwarz R.N. 17:44 01/03/21. BP: 132/76. MAP: 94. HR: 60. RR: 29. O2 saturation: 99%. Temp: 98.1 F. Pain level now: 0/10. --17:47 01/03/21 Maury Schwarz R.N. Departure time: 17:55 01/03/2021. --18:08 01/03/21 Maury Schwarz R.N. 5 Clinical Report - Nurses [facility] [address] [place] [address] Phone #: [phone]- [phone] 01/03/2021 13:37 Patient: ADEBAYO LIANG Sex: M : 1955 Age: 65yLocked/Released at 01/03/2021 18:10 by Maury Schwarz R.N. Name Value Range Interpretation Code Description Data Tavo rce(s) Supporting Document(s) ID Date Data Source [id number] 01/03/2021 01:38:00 PM EDT [facility] 1 Clinical Report - Physicians/Mid Levels [facility] Emergency Department [address] [place] [address] Phone #: ext- [phone] 01/03/2021 13:37 Patient: ADEBAYO LIANG Sex: M : 1955 Age: 65y Time Seen: 13:51 01/03/2021. Arrived- By private vehicle. Historian- patient. Disposition decision: 14:52 01/03/2021.HISTORY OF PRESENT ILLNESS Chief Complaint: DYSPNEA and HISTORY OF CONGESTIVE HEART FAILURE. This started several weeks and is still present. It has been constant. The dyspnea is described as moderate and is worsened by exertion. The patient has had sputum production, a cough, dyspnea on exertion and foot swelling. No fever, sweating episodes, whee zing, chest pain or calf pain. No anxiety or palpitations. (Recent increase on Lasix to BID. short of breath with leg swelling. weight gain. Patient is scheduled for angioplasty on Jan 15. He states that his regular physician, Caro told him he has a new blockage on his last nuclear stress test.). Similar symptoms previously. Recent medical care: The patient was seen recently in the office. ( seen by Dr. Elizondo.).REVIEW OF SYSTEMSThe patient has had extremity swelling. No muscle aches, eye irritation, sinus drainage, nausea orvomiting. No abdominal pain, blurred vision, excessive urination, enlarged lymph nodes or fever. Nosinus pain, nausea, vomiting, abnormal bleeding or skin rash. The patient has had a cough, difficultybreathing and pedal edema. All other systems reviewed and are negative.PAST HISTORYSee nurses notes. Hypertension. Congestive heart failure. No history of diabetes mellitus. Problems: Coronary Artery Disease. CVA - Cerebrovascular Accident. Gout. COPD - Chronic Obstructive Pu lmonary Disease. Congestive Heart Failure. PVD. Sleep Apnea. Hypercholesterolemia. Hypothyroidism. Additional Surgeries: "Watchman" filter placed Feb 2018, Stopped xarelto. Back Surgery. CABG x2. (1999 2012) 2 Clinical Report - Physicians/Mid Levels [facility] [address] [place], [place] [id number] Phone #: ext- [phone] 01/03/2021 13:37 Patient: ADEBAYO LIANG Sex: M : 1955 Age: 65y Cardiac Surgery. Cataract Surgery. Deviated septum. Pacemaker. R groin femoral artery cleaned out.. Medications: Levothyroxine Sodium Oral (Tablet 75 mcg), daily. Lasix Oral (Tablet 40 mg), 2x a day. Vitamin c Oral. Allopurinol Oral (Tablet 300 mg), daily. Aspirin Oral (Tablet 325 mg), daily. Atorvastatin Calcium Oral (Tablet 80 mg) 1 tablet, daily. Entresto Oral (Tablet 49-51 mg) 1 tablet, 2x a day. Ferrous Sulfate Iron Oral 324mg , 2x a day. Fluticasone Propionate Nasal (Exhaler Suspension 93 mcg/act) 2 spray, daily. Loratadine Childrens Oral 10mg, daily. Magnesium Oral (Capsule 400 mg), daily. Metoprolol Succinate ER Oral (Tablet Extended Release 24 Hour 25 mg) 1 tablet, daily. Multi Vitamin Daily Oral. Nitroglycerin Sublingual (Tablet Sublingual 0.4 mg), as needed. [place] Extract Oral 324 mg, 2x a day. PriLOSEC Oral (Packet 10 mg) 2 packets, daily. Allergies: Telticion.(hives) (cholesterol med).SOCIAL HISTORYCurrent every day smoker.FAMILY HISTORY(non-contributory at his age).ADDITIONAL NOTESThe nursing notes have been reviewed.PHYSICAL EXAMVital Signs: 01/03/2021 13:42 BP: 147/71. MAP: 96. HR: 63. RR: 26. O2 saturation: 100%. Temp: 97 F.Pain level now: 4/10.Appearance: Alert. No acute distress.Eyes: Pupils equal, round and reactive to light. Eyes normal inspection.ENT: Pharynx normal. Uvula midline.Neck: Normal inspection. Neck supple. No thyromegaly.CVS: Normal heart rate.Respiratory: Mild respiratory distress. Mildly decreased air movement in the right lung base posteriorly. 3 Clinical Report - Physicians/Mid Levels [facility] [address] [place] [address] Phone #: ext- [phone] 01/03/2021 13:37 Patient: ADEBAYO LIANG Sex: M : 1955 Age: 65y No retractions. Abdomen: Soft and nontender. No organomegaly. Back: Normal inspection. Skin: Skin warm and dry. Normal skin color. No rash. Normal skin turgor. Extremities: Bilateral mild 1+ pitting edema of the lower extremities involving both feet, both ankles and both lower legs. Extremities exhibit normal ROM. No calf tenderness. Neuro: Oriented X 3. No motor deficit. No sensory deficit.LABS, X-RAYS, AND EKGEKG: EKG time: 13:55 01/03/2021. Rate: 66. Paced rhythm. Normal axis. Non-specific ST segment /T wave abnormalities in lead aVL. Interpretation time: 13:58 01/03/2021.Chest X-ray: Congestive heart failure present. Vascular congestion present. Cardiomegaly. Small rightpleural effusion present. The X-rays were interpreted by the radiologist.Chest CT: Pleural effusion present. The study was interpreted by the radiologist.Laboratory Tests: COVID-19 CAH: (BRETT: 01/03/2021 15:10) ( MsgRcvd 01/03/2021 15:47) Final results Test Result Flag Units (Reference) COVID-19 NOT DETECTED COVID-19 REENTER NOT DETECTED PROCEDURAL CONTROL VALID KIT LOT # _[id number] 01/03/21.DW . KIT EXP DATE _34-52-16 01/03/21.DW . NORMAL RANGE IS NOT DETECTEDThe COVID-19 assay is a rapid molecular in vitro diagnostic testutilizing an isothermal nucleic acid amplification technology for thequalitative detection of nucleic acid from the SARS-CoV-2 viral RNA in directnasal or nasopharyngeal swabs. Testing should be performed within the first 7days of the onset of symptoms.NEGATIVE RESULTS SHOULD BE TREATED PRESUMPTIVE AND, IF INCONSISTENT WITHCLINICAL SIGNS AND SYMPTOMS OR NECESSARY FOR PATIENT MANAGEMENT, SHOULD BETESTED WITH DIFFERENT AUTHORIZED OR CLEARED MOLECULAR TESTS. NEGATIVE RESULTSDO NOT PRECLUDE SARS-CoV-2 INFECTION AND SHOULD NOT BE USED THE SOLE BASISFOR PATIENT MANAGEMENT DECISIONS. CT Chest W/O Cont: (BRETT: 01/03/2021 14:52) ( [facility] 01/03/2021 15:57) In Progress CT THORAX W/O CONTRAST Reason(s): CHF TRANSPORTATION: S IV? O2? Oxygen?(No) Room: ED CMP: (BRETT: 01/03/2021 14:06) ( [facility] 01/03/2021 14:42) Final results Test Result Flag Units (Reference) COMPREHENSIVE METABOLIC PANEL COMPREHENSIVE METABOLIC PANEL SODIUM 143 mEq/L (134 - 153) POTASSIUM 3.8 mEq/L (3.6 - 5.0) CHLORIDE 104 mEq/L (98 - 107) CO2 25 MEQ/L (22 - 30) GLUCOSE 122 H MG/DL (70 - 99) BUN 26 H MG/DL (7 - 21) CREATININE 1.2 MG/DL (0.7 - 1.5) BUN/CREAT 22 (8 - 27) TOTAL PROTEIN 6.6 G/DL (6.3 - 8.2) ALBUMIN 4.5 G/DL (3.9 - 5.0) GLOBULIN 2.1 L GM/DL (2.4 - 3.2) A/G RATIO 2.1 H (0.8 - 2.0) 4 Clinical Report - Physicians/Mid Levels [facility] [address] [place] [address] Phone #: ext- [phone] 01/03/2021 13:37 Patient: ADEBAYO LIANG Sex: M : 1955 Age: 65y CALCIUM 9.5 MG/DL (8.4 - 10.2) TOTAL BILI 0.9 MG/DL (0.2 - 1.3) ALKALINE PHOS 266 H U/L (38 - 126) SGOT/AST 26 U/L (5 - 40) SGPT/ALT 13 U/L (7 - 56) ANION GAP 14.0 mmol/L (8.0 - 16.0) AGE 65 yrs NON-AA GFR >60 mL/min AFR AMER GFR >60 mL/min Male GFR Interprentation 20-49 yrs >60 mL/min Qgwqhd45-86 yrs >56 mL/min Normal 60-69 yrs >49 mL/min Normal 70-79yrs>42 mL/min Normal 80 and above >35 mL/min Normal Female GFRInterpretation 20-39 yrs >60 mL/min Normal 40-49 yrs >58 mL/minNormal 50-59 yrs >51 mL/min Normal 60-69 yrs >45 mL/min Aohvag37-96 yrs >39 mL/min Normal 80 and above >32 mL/min NormalCBC w Diff: (BRETT: 01/03/2021 14:06) ( MsgRcvd 01/03/2021 14:13) Final results Test Result Flag Units (Reference) CBC W/AUTOMATED DIFF COMPLETE BLOOD COUNT WBC 6.3 10/uL (4.2 - 11.0) RBC 3.25 L 10/uL (4.50 - 6.30) HEMOGLOBIN 10.2 L g/dL (14.0 - 16.0) HEMATOCRIT 33.2 L % (41.0 - 51.0) MCV 102.2 H fL (80.0 - 94.0) MCH 31.4 pg (27.0 - 34.0) MCHC 30.7 L g/dL (31.0 - 36.0) RDW 17.2 H % (11.5 - 14.8) PLATELETS 146 L 10/uL (150 - 450) MPV 9.8 fL (7.4 - 10.4) NEUT 83.0 H % (37.0 - 80.0) LYMPH 8.7 L % (25.0 - 40.0) MONO 6.6 % (3.0 - 8.0) EOS 0.9 % (0.0 - 7.0) BASO 0.3 % (0.0 - 2.0) %IG 0.5 H % (0.0 - 0.0) %NRBC 0.0 % (0.0 - 0.0) #NEUT 5.25 10/uL (2.00 - 6.90) #LYMPH 0.55 L 10/uL (0.60 - 3.40) #MONO 0.42 10/uL (0.00 - 0.90) #EOS 0.06 10/uL (0.00 - 0.70) #BASO 0.02 10/uL (0.00 - 0.20) #IG 0.03 10/uL (0.00 - 0.10) #NRBC 0.00 10/uL (0.00 - 0.00) MANUAL DIFF NOT INDICATED RBC MORPH NOT INDICATEDTroponin-T: (BRETT: 01/03/2021 14:06) ( [facility] 01/03/2021 14:42) Final results Test Result Flag Units (Reference) TROPONIN T 0.02 NG/ML (0.00 - 0.10) TROPONIN T0.1 ng/ml Recommended as the clinical threshold value forTroponin T.BNP: (BRETT: 01/03/2021 14:06) ( [facility] 01/03/2021 14:42) Final results Test Result Flag Units (Reference) BNP 6929 H PG/ML (0 - 125) 5 Clinical Report - Physicians/Mid Levels [facility] [address] [place] [address] Phone #: ext- [phone] 01/03/2021 13:37 Patient: ADEBAYO LIANG Sex: M : 1955 Age: 65y Chest Portable 1 View: (BRETT: 01/03/2021 13:59) ( MsgRcvd 01/03/2021 14:32) In Progress CHEST PORTABLE Reason(s): CHF TRANSPORTATION: P IV? O2? Oxygen?(No) Room: ED.PROGRESS AND PROCEDURESCourse of Care: Differential diagnosis include, CHF, COPD, Pleural effusion, acute coronary syndrome,renal injury, fluid overload. 14:52 01/03/21. Lasix IV ordered. Finding on chest xray suggestive of CHF and pleural effusion. Critical care performed (35 minutes). Time is exclusive of separately billable procedures. Time includes: direct patient care, patient reassessment, interpretation of data and medical consultation. Discussed case with patient's primary care provider. Old medical records ordered. Disposition: Admitted to the Acute Inpatient Unit, Monitored.CLINICAL IMPRESSION Acute systolic, congestive heart failure. Medium-sized right and small left pleural effusion associated with acute congestive left ventricular failure.(Electronically signed by Wilfrid Champagne 01/03/2021 18:17) Name Value Range Interpretation Code Description Data Tavo rce(s) Supporting Document(s) ID Date Data Source [id number] 01/03/2021 03:10:00 PM EDT [facility] Name Value Range Interpretation Code Description Data Tavo rce(s) Supporting Document(s) COVID19 Case rprt NOT DETECTED [facility] This lab was ordered by [facility] and reported by [facility]. ID Date Data Source [id number] 01/03/2021 03:47:00 PM EDT [facility] NOT DETECTEDNOT DETECTED PROCE DURAL CONTROL VALID KIT LOT # _[id number] 01/03/21.1547.DW . KIT EXP DATE _80-76-72 01/03/211547.DW . NORMAL RANGE IS NOT DETECTEDThe COVID-19 assay is a rapid molecular in vitro diagnostic testutilizing an isothermal nucleic acid amplification technology for thequalitative detection of nucleic acid from the SARS-CoV-2 viral RNA in directnasal or nasopharyngeal swabs. Testing should be performed within the f irst 7days of the onset of symptoms.NEGATIVE RESULTS SHOULD BE TREATED PRESUMPTIVE AND, IF INCONSISTENT WITHCLINICAL SIGNS AND SYMPTOMS OR NECESSARY FOR PATIENT MANAGEMENT, SHOULD BETESTED WITH DIFFERENT AUTHORIZED OR CLEARED MOLECULAR TESTS. NEGATIVE RESULTSDO NOT PRECLUDE SARS-CoV-2 INFECTION AND SHOULD NOT BE USED THE SOLE BASISFOR PATIENT MANAGEMENT DECISIONS. Name Value Range Interpretation Code Description Data Tavo rce(s) Supporting Document(s) ID Date Data Source [id number] 01/03/2021 02:06:00 PM EDT [facility] (Jon Elizondo MD) Name Value Range Interpretation Code Description Data Tavo rce(s) Supporting Document(s) Laboratory test finding (navigational concept) Laboratory test result [facility] (Jon Elizondo MD) COMPLETE BLOOD COUNT Laboratory test finding (navigational concept) 3.25 10^6/uL 4 .50-6.30 Below low normal [facility] (Jon Elizondo MD) Laboratory test finding (navigational concept) 6.3 10^3/uL 4.2-11.0 [facility] (Jon Elizondo MD) Laboratory test finding (navigational concept) 10.2 g/dL 1 4.0-16.0 Below low normal [facility] (Jon Elizondo MD) Laboratory test finding (navigational concept) 33.2 % 4 1.0-51.0 Below low normal [facility] (Jon Elizondo MD) Laboratory test finding (navigational concept) 102.2 fL 8 0.0-94.0 Above high normal [facility] (Jon Elizondo MD) Laboratory test finding (navigational concept) 30.7 g/dL 3 1.0-36.0 Below low normal [facility] (Jon Elizondo MD) Laboratory test finding (navigational concept) 17.2 % 1 1.5-14.8 Above high normal [facility] (Jon Elizondo MD) Laboratory test finding (navigational concept) 31.4 pg 27.0-34.0 [facility] (Jon Elizondo MD) Laboratory test finding (navigational concept) 146 10^3/uL 1 50-450 Below low normal [facility] (Jon Elizondo MD) Laboratory test finding (navigational concept) 9.8 fL 7.4-10.4 [facility] (Jon Elizondo MD) Laboratory test finding (navigational concept) 83.0 % 3 7.0-80.0 Above high normal [facility] (Jon Elizondo MD) Laboratory test finding (navigational concept) 6.6 % 3.0-8.0 [facility] (Jon Elizondo MD) Laboratory test finding (navigational concept) 8.7 % 25.0-40 .0 Below low normal [facility] (Jon Elizondo MD) Laboratory test finding (navigational concept) 0.9 % 0.0-7.0 [facility] (Jon Elizondo MD) Laboratory test finding (navigational concept) 0.3 % 0.0-2.0 [facility] (Jon Elizondo MD) Laboratory test finding (navigational concept) 0.0 % 0.0-0.0 [facility] (Jon Elizondo MD) Laboratory test finding (navigational concept) 0.5 % 0.0-0.0 Above high normal [facility] (Jon Elizondo MD) Laboratory test finding (navigational concept) 5.25 10^3/uL 2.00-6.90 [facility] (Jon Elizondo MD) Laboratory test finding (navigational concept) 0.55 10^3/uL 0 .60-3.40 Below low normal [facility] (Jon Elizondo MD) Laboratory test finding (navigational concept) 0.06 10^3/uL 0.00-0.70 [facility] (Jon Elizondo MD) Laboratory test finding (navigational concept) 0.42 10^3/uL 0.00-0.90 [facility] (Jon Elizondo MD) Laboratory test finding (navigational concept) 0.03 10^3/uL 0.00-0.10 [facility] (Jon Elizondo MD) Laboratory test finding (navigational concept) 0.02 10^3/uL 0.00-0.20 [facility] (Jon Elizondo MD) Laboratory test finding (navigational concept) 0.00 10^3/uL 0.00-0.00 [facility] (Jon Elizondo MD) Laboratory test finding (navigational concept) Laboratory test result [facility] (Jon Elizondo MD) Laboratory test finding (navigational concept) Laboratory test result [facility] (Jon Elizondo MD) ID Date Data Source [id number] 01/03/2021 02:06:00 PM EDT [facility] (Jon Elizondo MD) Name Value Range Interpretation Code Description Data Tavo rce(s) Supporting Document(s) Troponin T.cardiac [Mass/volume] in Serum or Plasma 0.02 ng/mL 0.00-0 .10 [facility] (Jon Elizondo MD) TROPONIN T 0.1 ng/ml Recommended as the clinical th reshold value for Troponin T. Natriuretic peptide.B prohormone N-Terminal [Mass/volu me] in Serum or Plasma 6929 pg/mL 0-125 Above high normal [facility] (Jon Elizondo MD) ID Date Data Source [id number] 01/03/2021 02:06:00 PM EDT [facility] (Jon Elizondo MD) Name Value Range Interpretation Code Description Data Tavo rce(s) Supporting Document(s) Laboratory test finding (navigational concept) Laboratory test result [facility] (Jon Elizondo MD) COMPREHENSIVE METABOLIC PANEL Laboratory test finding (navigational concept) 143 meq/L 134-153 [facility] (Jon Elizondo MD) Laboratory test finding (navigational concept) 3.8 meq/L 3.6-5.0 [facility] (Jon Elizondo MD) Laboratory test finding (navigational concept) 25 meq/L 22-30 [facility] (Jon Elizondo MD) Laboratory test finding (navigational concept) 104 meq/L 98-107 [facility] (Jon Elizondo MD) Laboratory test finding (navigational concept) 26 mg/dL 7-21 Above high normal [facility] (Jon Elizondo MD) Laboratory test finding (navigational concept) 122 mg/dL 7 0-99 Above high normal [facility] (Jon Elizondo MD) Laboratory test finding (navigational concept) 1.2 mg/dL 0.7-1.5 [facility] (Jon Elizondo MD) Laboratory test finding (navigational concept) 22 8-27 [facility] (Jon Elizondo MD) Laboratory test finding (navigational concept) 6.6 g/dL 6.3-8.2 [facility] (Jon Elizondo MD) Laboratory test finding (navigational concept) 4.5 g/dL 3.9-5.0 [facility] (Jon Elizondo MD) Laboratory test finding (navigational concept) 2.1 GM/DL 2 .4-3.2 Below low normal [facility] (Jon Elizondo MD) Laboratory test finding (navigational concept) 2.1 0.8-2.0 Above high normal [facility] (Jon Elizondo MD) Laboratory test finding (navigational concept) 9.5 mg/dL 8.4-10.2 [facility] (Jon Elizondo MD) Laboratory test finding (navigational concept) 266 U/L 38-126 Above high normal [facility] (Jon Elizondo MD) Laboratory test finding (navigational concept) 0.9 mg/dL 0.2-1.3 [facility] (Jon Elizondo MD) Laboratory test finding (navigational concept) 13 U/L 7-56 [facility] (Jon Elizondo MD) Laboratory test finding (navigational concept) 26 U/L 5-40 [facility] (Jon Elizondo MD) Laboratory test finding (navigational concept) 14.0 mmol/L 8.0-16.0 [facility] (Jon Elizondo MD) Laboratory test finding (navigational concept) 65 yrs [facility] (Jon Elizondo MD) Laboratory test finding (navigational concept) Laboratory test result [facility] (Jon Elizondo MD) Laboratory test finding (navigational concept) Laboratory test result [facility] (Jon Elizondo MD) Male GFR Interprentation 20-49 yrs >60 mL/min Normal 50-59 yrs >56 mL/min Normal 60-69 yrs >49 mL/min Normal 70-79yrs >42 mL/min Normal 80 and above >35 mL/min Normal Female GFR Interpretation 20-39 yrs >60 mL/min Normal 40-49 yrs >58 mL/min Normal 50-59 yrs >51 mL/min Normal 60-69 yrs >45 mL/min Normal 70-79 yrs >39 mL/min Normal 80 and above >32 mL/min Normal ID Date Data Source [id number] 01/03/2021 02:06:00 PM EDT [facility] (Jon Elizondo MD) Name Value Range Interpretation Code Description Data Tavo rce(s) Supporting Document(s) Thyrotropin [Units/volume] in Serum or Plasma by Detec tion limit <= 0.005 mIU/L 3.56 uIU/mL 0.47-5.01 [facility] (Jon Elizondo MD) Can run on todays blood Magnesium [Mass/volume] in Serum or Plasma 1.9 mg/dL 1.7-2.2 [facility] (Jon Elizondo MD) Can run on todays blood Thyroxine (T4) free [Mass/volume] in Serum or Plasma 1.37 ng/dL 0.93- 1.70 [facility] (Jon Elizondo MD) Can run on todays blood ID Date Data Source [id number] 01/03/2021 06:50:00 PM EDT [facility] Value Range Interpretation Code Description Data Tavo rce(s) Supporting Document(s) Thyroxine (T4) free index in Serum or Plasma by calculation 1.37 NG/DL 0.93 - 1.70 [facility] ID Date Data Source [id number] 01/03/2021 06:50:00 PM EDT [facility] Value Range Interpretation Code Description Data Tavo rce(s) Supporting Document(s) Thyrotropin [Units/volume] in Serum or Plasma by Detec tion limit <= 0.05 mIU/L 3.56 uIU/mL 0.47 - 5.01 [facility] ID Date Data Source [id number] 01/03/2021 05:19:00 PM EDT [facility] Value Range Interpretation Code Description Data Tavo rce(s) Supporting Document(s) Magnesium [Mass/volume] in Serum or Plasma 1.9 MG/DL 1.7 - 2.2 [facility] ID Date Data Source [id number] 01/03/2021 02:42:00 PM EDT [facility] Value Range Interpretation Code Description Data Tavo rce(s) Supporting Document(s) COMPREHENSIVE METABOLIC PANEL [facility] COMPREHENSIVE METABOLIC PANEL Sodium [Moles/volume] in Serum or Plasma 143 mEq/L 134 - 153 [facility] Potassium [Moles/volume] in Serum or Plasma 3.8 mEq/L 3.6 - 5.0 [facility] Chloride [Moles/volume] in Serum or Plasma 104 mEq/L 98 - 107 [facility] Carbon dioxide, total [Moles/volume] in Serum or Plasma 25 MEQ/L 22 - 30 [facility] Glucose [Mass/volume] in Serum or Plasma 122 MG/DL 70 - 99 H [facility] BUN 26 MG/DL 7 - [facility] Creatinine [Mass/volume] in Serum or Plasma 1.2 MG/DL 0.7 - 1.5 [facility] BUN/CREAT 22 8 - 27 [facility] al Protein [Mass/volume] in Serum or Plasma 6.6 G/DL 6.3 - 8.2 [facility] Albumin [Mass/volume] in Serum or Plasma 4.5 G/DL 3.9 - 5.0 [facility] Globulin [Mass/volume] in Serum by calculation 2.1 GM/DL 2.4 - 3.2 L [facility] A/G RATIO 2.1 0.8 - 2.0 [facility] Calcium [Mass/volume] in Serum or Plasma 9.5 MG/DL 8.4 - 10.2 [facility] Bilirubin.total [Mass/volume] in Serum or Plasma 0.9 MG/DL 0.2 - 1.3 [facility] Alkaline phosphatase [Enzymatic activity/volume] in Serum or Plasma 266 U/L 38 - 126 H [facility] Aspartate aminotransferase [Enzymatic activity/volume] in Serum or Plasma 26 U/L 5 - 40 [facility] Alanine aminotransferase [Enzymatic activity/volume] in Seru m or Plasma 13 U/L 7 - 56 [facility] Anion gap 3 in Serum or Plasma 14.0 mmol/L 8.0 - 16.0 [facility] AGE 65 yrs [facility] NON-AA GFR >60 mL/min [facility] AFR AMER GFR >60 mL/min [facility] Male GFR In terprentation 20-49 yrs >60 mL/min Normal 50-59 yrs >56 mL/min Normal 60-69 yrs >49 mL/min Normal 70-79yrs >42 mL/min Normal 80 and above >35 mL/min Normal Female GFR Interpretation 20-39 yrs >60 mL/min Normal 40-49 yrs >58 mL/min Normal 50-59 yrs >51 mL/min Normal 60-69 yrs >45 mL/min Normal 70-79 yrs >39 mL/min Normal 80 and above >32 mL/min Normal ID Date Data Source [id number] 01/03/2021 02:42:00 PM EDT [facility] Name Value Range Interpretation Code Description Data Tavo rce(s) Supporting Document(s) BNP 6929 PG/ML 0 - 125 [facility] ID Date Data Source [id number] 01/03/2021 02:42:00 PM EDT [facility] Name Value Range Interpretation Code Description Data Tavo rce(s) Supporting Document(s) TROPONIN T 0.02 NG/ML 0.00 - 0.10 [facility] TROPONIN T0.1 ng/ml Recommended as the c linical threshold value forTroponin T. ID Date Data Source [id number] 01/03/2021 02:13:00 PM T [facility] Name Value Range Interpretation Code Description Data Tavo rce(s) Supporting Document(s) CBC W/AUTOMATED DIFF [facility] COMPLETE BLOOD COUNT Leukocytes [#/volume] in Blood by Automated count 6.3 10^3/uL 4.2 - 1 1.0 [facility] Erythrocytes [#/volume] in Blood by Automated count 3.25 10^6/uL 4. 50 - 6.30 L [facility] Hemoglobin [Mass/volume] in Blood 10.2 g/dL 14.0 - 16.0 L [facility] Hematocrit [Volume Fraction] of Blood by Automated count 33.2 % 4 1.0 - 51.0 L [facility] Erythrocyte mean corpuscular volume [Entitic volume] b y Automated count 102.2 fL 80.0 - 94.0 H [facility] Erythrocyte mean corpuscular hemoglobin [Entitic mass] by Automated count 31.4 pg 27.0 - 34.0 [facility] Erythrocyte mean corpuscular hemoglobin concentration [Mass/volume] by Automated count 30.7 g/dL 31.0 - 36.0 L [facility] Erythrocyte distribution width [Ratio] by Automated count 17.2 % 11.5 - 14.8 H [facility] Platelets [#/volume] in Blood by Automated count 146 10^3/uL 150 - 45 0 L [facility] Platelet mean volume [Entitic volume] in Blood by Automated count 9.8 fL 7.4 - 10.4 [facility] Neutrophils/100 leukocytes in Blood by Automated count 83.0 % 37. 0 - 80.0 H [facility] Lymphocytes/100 leukocytes in Blood by Manual count 8.7 % 25.0 - 40.0 L [facility] Monocytes/100 leukocytes in Blood by Automated count 6.6 % 3.0 - 8.0 [facility] Eosinophils/100 leukocytes in Blood by Automated count 0.9 % 0.0 - 7.0 [facility] Basophils/100 leukocytes in Blood by Automated count 0.3 % 0.0 - 2.0 [facility] %IG 0.5 % 0.0 - 0.0 [facility] %NRBC 0.0 % 0.0 - 0.0 [facility] al Neutrophils [#/volume] in Blood by Automated count 5.25 10^3/uL 2.00 - 6.90 [facility] Lymphocytes [#/volume] in Blood by Automated count 0.55 10^3/uL 0.60 - 3.40 L [facility] Monocytes [#/volume] in Blood by Automated count 0.42 10^3/uL 0.00 - 0.90 [facility] Eosinophils [#/volume] in Blood by Automated count 0.06 10^3/uL 0.00 - 0.70 [facility] Basophils [#/volume] in Blood by Automated count 0.02 10^3/uL 0.00 - 0.20 [facility] #IG 0.03 10^3/uL 0.00 - 0.10 [facility]ital #NRBC 0.00 10^3/uL 0.00 - 0.00 [facility] MANUAL DIFF NOT INDICATED [facility] RBC MORPH NOT INDICATED [facility] ID Date Data Source [id number] 12/19/2020 08:27:00 PM EDT [facility] [address] [place] [address] PHONE: [phone] FAX: [phone] Name .................. : FRENIE Charlton Acct Number.................. : [id number] ROOM. ................. : Number ................... : [id number] Stay type ............. : O/P Discharge Date......... ... : 12/17/20 Admit Date ......... : 12/17/20 Admit Phys .................... : CARO WILMA Date of ....... : 1955 Family Phys ................... : CARO WILMA Phone .................. : [phone] Age ................................ : 65 Film# .................. .:[id number] Sex ................................. : M Unsigned transcriptions are preliminary reports and do not represent a medical or legal document CT ABD & PELV W/O ORAL W/[place] [id number] COMPLETE:12/17/20 11:06 Reason for Exam: METS, ELEVATED LIVER ENZYMES,ANEMIC CT ABDOMEN AND PELVIS WITHOUT IV CONTRAST INDICATION: Metastases, elevated liver enzymes, anemia COMPARISON: CT chest 06/29/19. CT abdomen and pelvis 03/28/2011 IV CONTRAST: None One or more of the following dose reduction techniques were utilized in effectively lowering the radiation dose for this examination: Automated Exposure Control, Adjustment of the mA a nd/or kV according to patient size, or Iterative reconstruction. FINDINGS: LUNG BASES: Pacer system. Small left and moderate right pleural effusion. Slightly larger on the right than prior and slightly smaller on the left. Adjacent airspace density most likely compressive atelectasis. Left lower lobe granulomata. LIVER/BILIARY: Allowing for the lack of IV contrast which will reduce sensitivity no liver lesions are identified. No biliary ductal dilatation. Minimal cholelithiasis in a nondistended gallbladder. SPLEEN: Normal. PANCREAS: Normal. ADRENALS: Normal bilaterally. KIDNEYS/: Bilateral renal hilar calcification probably vascular rather than nephrolithiasis. No hydronephrosis. Grossly normal bladder. No significant abnormalities seen in the Page 1 of 3 [facility] [address] [place] [address] PHONE: [phone] FAX: [phone] Name .................. : FERNIE VEGA Zoltan Acct Number.................. : [id number] ROOM. ................. : MR Number ................... : [id number] Stay type ............. : O/P Discharge Date......... ... : 12/17/20 Admit Date ......... : 12/17/20 Admit Phys .................... : CRAO DILLON Date of ....... : 1955 Family Phys ................... : CARO WILMA Phone .................. : [phone] Age ................................ : 65 Film# .................. .:[id number] Sex ................................. : M Unsigned transcriptions are preliminary reports and do not represent a medical or legal document CT ABD & PELV W/O ORAL W/[place] [id number] COMPLETE:12/17/20 11:06 Reason for Exam: METS, ELEVATED LIVER ENZYMES,ANEMIC reproductive organs. BOWEL/GI: Although there is a dense metallic object in the right lower quadrant adjacent to the appendix the appendix does appear to be present with no indication of appendicitis. Extensive diverticulosis in the distal descending and proximal sigmoid colon without diverticulitis. No generalized colitis. Mild to moderate ascites. No free intraperitoneal air. No indication of omental or peritoneal tumor is identified. Diffuse body wall edema. Bilateral inguinal scars. Correlate for vascular access or hernia repair etiology. NODES/RETROPERITONEUM: No adenopathy or AAA. Severe aortoiliac and branch vessel calcification. No retroperitoneal mass or hematoma. SKELETAL: Mu ltilevel oggm-gh-avvrqpxq degenerative disc change. L3-S1 fusion and laminectomy. There are a few small sclerotic foci in the pelvis typical of benign bone islands. No indication of skeletal metastasis. IMPRESSION: No active malignancy/metastatic disease is identified. Bilateral pleural effusions right greater than left. Mild to moderate ascites. Diffuse body wall edema. Findings suggest fluid imbalance. Cholelithiasis. No findings specifically suggestive of cholecystitis. Diverticulosis. No indication of diverticulitis for acute GI process. Electronically Rev iewed and Signed By Page 2 of 3 [facility] [address] [place] [address] PHONE: [phone] FAX: [phone] Name .................. : FERNIE Charlton Acct Number.................. : [id number] ROOM. ................. : MR Number ................... : [id number] Stay type ............. : O/P Discharge Date......... ... : 12/17/20 Admit Date ......... : 12/17/20 Admit Phys .................... : CARO WILMA Date of ....... : 1955 Family Phys ................... : CARO WILMA Phone .................. : [phone] Age ................................ : 65 Film# .................. .:[id number] Sex ................................. : M Unsigned transcriptions are preliminary reports and do not represent a medical or legal document CT ABD & PELV W/[place] W/[place] [id number] COMPLETE:12/17/20 11:06 Reason for Exam: METS, ELEVATED LIVER ENZYMES,ANEMIC Dhruv Henry MD , 12/19/20 20:27, SCB Transcribe Initials: DZ , Transcribe Date: 12/17/20 14:11, Dictation Date: Copy for: CARO ACOSTA via [email or web address] Copy for: 710 MED REC Page 3 of 3 Name Value Range Interpretation Code Description Data Tavo rce(s) Supporting Document(s) ID Date Data Source [id number] 12/12/2020 10:27:00 AM EDT [facility] (Jon Elizondo MD) Name Value Range Interpretation Code Description Data Tavo rce(s) Supporting Document(s) Laboratory test finding (navigational concept) Laboratory test result [facility] (Jon Elizondo MD) COMPLETE BLOOD COUNT Laboratory test finding (navigational concept) 3.21 10^6/uL 4 .50-6.30 Below low normal [facility] (Jon Elizondo MD) Laboratory test finding (navigational concept) 7.0 10^3/uL 4.2-11.0 [facility] (Jon Elizondo MD) Laboratory test finding (navigational concept) 10.3 g/dL 1 4.0-16.0 Below low normal [facility] (Jon Elizondo MD) Laboratory test finding (navigational concept) 33.2 % 4 1.0-51.0 Below low normal [facility] (Jon Elizondo MD) Laboratory test finding (navigational concept) 103.4 fL 8 0.0-94.0 Above high normal [facility] (Jon Elizondo MD) Laboratory test finding (navigational concept) 32.1 pg 27.0-34.0 [facility] (Jon Elizondo MD) Laboratory test finding (navigational concept) 31.0 g/dL 31.0-36.0 [facility] (Jon Elizondo MD) Laboratory test finding (navigational concept) 179 10^3/uL 150-450 [facility] (Jon Elizondo MD) Laboratory test finding (navigational concept) 18.5 % 1 1.5-14.8 Above high normal [facility] (Jon Elizondo MD) Laboratory test finding (navigational concept) 83.7 % 3 7.0-80.0 Above high normal [facility] (Jon Elizondo MD) Laboratory test finding (navigational concept) 10.7 fL 7 .4-10.4 Above high normal [facility] (Jon Elizondo MD) Laboratory test finding (navigational concept) 7.1 % 3.0-8.0 [facility] (Jon Elizondo MD) Laboratory test finding (navigational concept) 7.8 % 25.0-40 .0 Below low normal [facility] (Jon Elizondo MD) Laboratory test finding (navigational concept) 0.7 % 0.0-7.0 [facility] (Jon Elizondo MD) Laboratory test finding (navigational concept) 0.3 % 0.0-2.0 [facility] (Jon Elizondo MD) Laboratory test finding (navigational concept) 0.4 % 0.0-0.0 Above high normal [facility] (Jon Elizondo MD) Laboratory test finding (navigational concept) 5.88 10^3/uL 2.00-6.90 [facility] (Jon Elizondo MD) Laboratory test finding (navigational concept) 0.55 10^3/uL 0 .60-3.40 Below low normal [facility] (Jon Elizondo MD) Laboratory test finding (navigational concept) 0.0 % 0.0-0.0 [facility] (Jon Elizondo MD) Laboratory test finding (navigational concept) 0.50 10^3/uL 0.00-0.90 [facility] (Jon Elizondo MD) Laboratory test finding (navigational concept) 0.05 10^3/uL 0.00-0.70 [facility] (Jon Elizondo MD) Laboratory test finding (navigational concept) 0.02 10^3/uL 0.00-0.20 [facility] (Jon Elizondo MD) Laboratory test finding (navigational concept) 0.03 10^3/uL 0.00-0.10 [facility] (Jon Elizondo MD) Laboratory test finding (navigational concept) 0.00 10^3/uL 0.00-0.00 [facility] (Jon Elizondo MD) Laboratory test finding (navigational concept) Laboratory test result [facility] (Jon Elizondo MD) Laboratory test finding (navigational concept) Laboratory test result [facility] (Jon Elizondo MD) ID Date Data Source [id number] 12/12/2020 10:27:00 AM EDT [facility] (Jon Elizondo MD) Name Value Range Interpretation Code Description Data Tavo rce(s) Supporting Document(s) Laboratory test finding (navigational concept) Laboratory test result [facility] (Jon Elizondo MD) LIPID PANEL Laboratory test finding (navigational concept) 108 mg/dL 1 31-200 Below low normal [facility] (Jon Elizondo MD) Laboratory test finding (navigational concept) 52 mg/dL 35-160 [facility] (Jon Elizondo MD) Laboratory test finding (navigational concept) 40 mg/dL 29-86 [facility] (Jon Elizondo MD) Laboratory test finding (navigational concept) 68 mg/dL 65-175 [facility] (Jon Elizondo MD) Laboratory test finding (navigational concept) 2.7 3.4-4.9 Below low normal [facility] (Jon Elizondo MD) Laboratory test finding (navigational concept) 1.70 1.00-3.55 [facility] (Jon Eilzondo MD) CVE RISK CHOL/HDL LDL/HDL MEN: 1/2 AVERAGE 3.43 1.00 AVERAGE 4.97 3.55 2X AVERAGE 9.55 6.25 3X AVERAGE 23.99 7.99 WOMEN: 1/2 AVERAGE 3.27 1.47 AVERAGE 4.44 3.22 2X AVERAGE 7.05 5.03 3X AVERAGE 11.04 6.14 ID Date Data Source [id number] 12/12/2020 10:27:00 AM EDT [facility] (Jon Elizondo MD) Name Value Range Interpretation Code Description Data Tavo rce(s) Supporting Document(s) Laboratory test finding (navigational concept) Laboratory test result [facility] (Jon Elizondo MD) COMPREHENSIVE METABOLIC PANEL Laboratory test finding (navigational concept) 142 meq/L 134-153 [facility] (Jon Elizondo MD) Laboratory test finding (navigational concept) 4.6 meq/L 3.6-5.0 [facility] (Jon Elizondo MD) Laboratory test finding (navigational concept) 22 meq/L 22-30 [facility] (Jon Elizondo MD) Laboratory test finding (navigational concept) 106 meq/L 98-107 [facility] (Jon Elizondo MD) Laboratory test finding (navigational concept) 1.3 mg/dL 0.7-1.5 [facility] (Jon Elizondo MD) Laboratory test finding (navigational concept) 117 mg/dL 7 0-99 Above high normal [facility] (Jon Elizondo MD) Laboratory test finding (navigational concept) 32 mg/dL 7-21 Above high normal [facility] (Jon Eliznodo MD) Laboratory test finding (navigational concept) 6.8 g/dL 6.3-8.2 [facility] (Jon Elizondo MD) Laboratory test finding (navigational concept) 25 8-27 [facility] (Jon Elizondo MD) Laboratory test finding (navigational concept) 2.3 GM/DL 2 .4-3.2 Below low normal [facility] (Jon Elizondo MD) Laboratory test finding (navigational concept) 4.5 g/dL 3.9-5.0 [facility] (Jon Elizondo MD) Laboratory test finding (navigational concept) 9.6 mg/dL 8.4-10.2 [facility] (Jon Elizondo MD) Laboratory test finding (navigational concept) 0.7 mg/dL 0.2-1.3 [facility] (Jon Elizondo MD) Laboratory test finding (navigational concept) 2.0 0.8-2.0 [facility] (Jon Elizondo MD) Laboratory test finding (navigational concept) 283 U/L 38-126 Above high normal [facility] (Jon Elizondo MD) Laboratory test finding (navigational concept) 26 U/L 5-40 [facility] (Jon Elizondo MD) Laboratory test finding (navigational concept) 14.0 mmol/L 8.0-16.0 [facility] (Jon Elizondo MD) Laboratory test finding (navigational concept) 17 U/L 7-56 [facility] (Jon Elizondo MD) Laboratory test finding (navigational concept) Laboratory test result [facility] (Jon Elizondo MD) Male GFR Interprentation 20-49 yrs >60 mL/min Normal 50-59 yrs >56 mL/min Normal 60-69 yrs >49 mL/min Normal 70-79yrs >42 mL/min Normal 80 and above >35 mL/min Normal Female GFR Interpretation 20-39 yrs >60 mL/min Normal 40-49 yrs >58 mL/min Normal 50-59 yrs >51 mL/min Normal 60-69 yrs >45 mL/min Normal 70-79 yrs >39 mL/min Normal 80 and above >32 mL/min Normal Laboratory test finding (navigational concept) 65 yrs [facility] (Jon Elizondo MD) Laboratory test finding (navigational concept) 59 mL/min [facility] (Jon Elizondo MD) ID Date Data Source [id number] 12/12/2020 10:27:00 AM EDT [facility] (Jon Elizondo MD) Name Value Range Interpretation Code Description Data Tavo rce(s) Supporting Document(s) Magnesium [Mass/volume] in Serum or Plasma 2.1 mg/dL 1.7-2.2 [facility] (Jon Elizondo MD) Natriuretic peptide.B prohormone N-Terminal [Mass/volu me] in Serum or Plasma 7997 pg/mL 0-125 Above high normal [facility] (Jon Elizondo MD) ID Date Data Source [id number] 12/12/2020 02:19:00 PM EDT [facility] Name Value Range Interpretation Code Description Data Tavo rce(s) Supporting Document(s) CBC W/AUTOMATED DIFF [facility] COMPLETE BLOOD COUNT Leukocytes [#/volume] in Blood by Automated count 7.0 10^3/uL 4.2 - 1 1.0 [facility] Erythrocytes [#/volume] in Blood by Automated count 3.21 10^6/uL 4. 50 - 6.30 L [facility] Hemoglobin [Mass/volume] in Blood 10.3 g/dL 14.0 - 16.0 L [facility] Hematocrit [Volume Fraction] of Blood by Automated count 33.2 % 4 1.0 - 51.0 L [facility] Erythrocyte mean corpuscular volume [Entitic volume] b y Automated count 103.4 fL 80.0 - 94.0 H [facility] Erythrocyte mean corpuscular hemoglobin [Entitic mass] by Automated count 32.1 pg 27.0 - 34.0 [facility] Erythrocyte mean corpuscular hemoglobin concentration [Mass/volume] by Automated count 31.0 g/dL 31.0 - 36.0 [facility] Erythrocyte distribution width [Ratio] by Automated count 18.5 % 11.5 - 14.8 H [facility] Platelets [#/volume] in Blood by Automated count 179 10^3/uL 150 - 45 0 [facility] Platelet mean volume [Entitic volume] in Blood by Automated count 10.7 fL 7.4 - 10.4 H [facility] Neutrophils/100 leukocytes in Blood by Automated count 83.7 % 37. 0 - 80.0 H [facility] Lymphocytes/100 leukocytes in Blood by Manual count 7.8 % 25.0 - 40.0 L [facility] Monocytes/100 leukocytes in Blood by Automated count 7.1 % 3.0 - 8.0 [facility] Eosinophils/100 leukocytes in Blood by Automated count 0.7 % 0.0 - 7.0 [facility] Basophils/100 leukocytes in Blood by Automated count 0.3 % 0.0 - 2.0 [facility] %IG 0.4 % 0.0 - 0.0 H [facility] al %NRBC 0.0 % 0.0 - 0.0 [facility] al Neutrophils [#/volume] in Blood by Automated count 5.88 10^3/uL 2.00 - 6.90 [facility] Lymphocytes [#/volume] in Blood by Automated count 0.55 10^3/uL 0.60 - 3.40 L [facility] Monocytes [#/volume] in Blood by Automated count 0.50 10^3/uL 0.00 - 0.90 [facility] Eosinophils [#/volume] in Blood by Automated count 0.05 10^3/uL 0.00 - 0.70 [facility] Basophils [#/volume] in Blood by Automated count 0.02 10^3/uL 0.00 - 0.20 [facility] #IG 0.03 10^3/uL 0.00 - 0.10 [facility] #NRBC 0.00 10^3/uL 0.00 - 0.00 [facility] MANUAL DIFF NOT INDICATED [facility] RBC MORPH NOT INDICATED [facility] ID Date Data Source [id number] 12/12/2020 11:49:00 AM EDT [facility] Name Value Range Interpretation Code Description Data Tavo rce(s) Supporting Document(s) CVE PANEL [facility] LIPID PANEL Cholesterol [Mass/volume] in Serum or Plasma 108 MG/DL 131 - 200 L [facility] Deprecated Triglyceride [Mass/volume] in Serum or Plasma 52 MG/DL 3 5 - 160 [facility] HDL 40 MG/DL 29 - 86 [facility] Cholesterol in LDL [Mass/volume] in Serum or Plasma by Direc t assay 68 mg/dL 65 - 175 [facility] Cholesterol.total/Cholesterol in HDL [Mass Ratio] in Serum o r Plasma 2.7 3.4 - 4.9 L [facility] LDL/HDL 1.70 1.00 - 3.55 [facility] CVE RISK CHOL/HDL LDL/HDLMEN: 1/2 AVERAGE 3.43 1.00 AVERAGE 4.97 3.55 2X AVERAGE 9.55 6.25 3X AVERAGE 23.99 7.99WOMEN: 1/2 AVERAGE 3.27 1.47 AVERAGE 4.44 3.22 2X AVERAGE 7.05 5.03 3X AVERAGE 11.04 6.14 ID Date Data Source [id number] 12/12/2020 11:48:00 AM EDT [facility] Name Value Range Interpretation Code Description Data Tavo rce(s) Supporting Document(s) COMPREHENSIVE METABOLIC PANEL [facility] COMPREHENSIVE METABOLIC PANEL Sodium [Moles/volume] in Serum or Plasma 142 mEq/L 134 - 153 [facility] Potassium [Moles/volume] in Serum or Plasma 4.6 mEq/L 3.6 - 5.0 [facility] Chloride [Moles/volume] in Serum or Plasma 106 mEq/L 98 - 107 [facility] Carbon dioxide, total [Moles/volume] in Serum or Plasma 22 MEQ/L 22 - 30 [facility] Glucose [Mass/volume] in Serum or Plasma 117 MG/DL 70 - 99 H [facility] BUN 32 MG/DL 7 - 21 H [facility] Creatinine [Mass/volume] in Serum or Plasma 1.3 MG/DL 0.7 - 1.5 [facility] BUN/CREAT 25 8 - 27 [facility] Protein [Mass/volume] in Serum or Plasma 6.8 G/DL 6.3 - 8.2 [facility] Albumin [Mass/volume] in Serum or Plasma 4.5 G/DL 3.9 - 5.0 [facility] Globulin [Mass/volume] in Serum by calculation 2.3 GM/DL 2.4 - 3.2 L [facility] A/G RATIO 2.0 0.8 - 2.0 [facility] Calcium [Mass/volume] in Serum or Plasma 9.6 MG/DL 8.4 - 10.2 [facility] Bilirubin.total [Mass/volume] in Serum or Plasma 0.7 MG/DL 0.2 - 1.3 [facility] Alkaline phosphatase [Enzymatic activity/volume] in Serum or Plasma 283 U/L 38 - 126 H [facility] Aspartate aminotransferase [Enzymatic activity/volume] in Serum or Plasma 26 U/L 5 - 40 [facility] Alanine aminotransferase [Enzymatic activity/volume] in Seru m or Plasma 17 U/L 7 - 56 [facility] Anion gap 3 in Serum or Plasma 14.0 mmol/L 8.0 - 16.0 [facility] AGE 65 yrs [facility] NON-AA GFR 59 mL/min [facility] AFR AMER GFR >60 mL/min [facility] Male GFR In terprentation 20-49 yrs >60 mL/min Normal 50-59 yrs >56 mL/min Normal 60-69 yrs >49 mL/min Normal 70-79yrs >42 mL/min Normal 80 and above >35 mL/min Normal Female GFR Interpretation 20-39 yrs >60 mL/min Normal 40-49 yrs >58 mL/min Normal 50-59 yrs >51 mL/min Normal 60-69 yrs >45 mL/min Normal 70-79 yrs >39 mL/min Normal 80 and above >32 mL/min Normal ID Date Data Source [id number] 12/12/2020 11:48:00 AM EDT [facility] Name Value Range Interpretation Code Description Data Tavo rce(s) Supporting Document(s) BNP 7997 PG/ML 0 - 125 H [facility] ID Date Data Source [id number] 12/12/2020 11:31:00 AM EDT [facility] Name Value Range Interpretation Code Description Data Tavo rce(s) Supporting Document(s) Magnesium [Mass/volume] in Serum or Plasma 2.1 MG/DL 1.7 - 2.2 [facility] ID Date Data Source [id number] 11/22/2020 10:54:00 AM EDT [facility] (Jon Elizondo MD) Name Value Range Interpretation Code Description Data Tavo rce(s) Supporting Document(s) Laboratory test finding (navigational concept) Laboratory test result [facility] (Jon Elizondo MD) {SOURCE: Random Void~NURSE COLLECTED? N Laboratory test finding (navigational concept) Laboratory test result [facility] (Jon Elizondo MD) {SOURCE: Random Void~NURSE COLLECTED? N Laboratory test finding (navigational concept) Laboratory test result [facility] (Jon Elizondo MD) {SOURCE: Random Void~NURSE COLLECTED? N Laboratory test finding (navigational concept) Laboratory test result [facility] (Jon Elizondo MD) {SOURCE: Random Void~NURSE COLLECTED? N Laboratory test finding (navigational concept) Laboratory test result [facility] (Jon Elizondo MD) {SOURCE: Random Void~NURSE COLLECTED? N Laboratory test finding (navigational concept) 1.015 1.001-1.030 [facility] (Jon Elizondo MD) {SOURCE: Random Void~NURSE COLLECTED? N Laboratory test finding (navigational concept) 5 5-9 [facility] (Jon Elizondo MD) {SOURCE: Random Void~NURSE COLLECTED? N Laboratory test finding (navigational concept) Laboratory test result [facility] (Jon Elizondo MD) {SOURCE: Random Void~NURSE COLLECTED? N Laboratory test finding (navigational concept) Laboratory test result [facility] (Jon Elizondo MD) {SOURCE: Random Void~NURSE COLLECTED? N Laboratory test finding (navigational concept) Laboratory test result [facility] (Jon Elizondo MD) {SOURCE: Random Void~NURSE COLLECTED? N Laboratory test finding (navigational concept) Laboratory test result [facility] (Jon Elizondo MD) {SOURCE: Random Void~NURSE COLLECTED? N Laboratory test finding (navigational concept) Laboratory test result [facility] (Jon Elizondo MD) {SOURCE: Random Void~NURSE COLLECTED? N Laboratory test finding (navigational concept) Laboratory test result [facility] (Jon Elizondo MD) {SOURCE: Random Void~NURSE COLLECTED? N Laboratory test finding (navigational concept) Laboratory test result [facility] (Jon Elizondo MD) {SOURCE: Random Void~NURSE COLLECTED? N Laboratory test finding (navigational concept) Laboratory test result [facility] (Jon Elizondo MD) {SOURCE: Random Void~NURSE COLLECTED? N ID Date Data Source [id number] 11/22/2020 03:18:00 PM EDT [facility] Name Value Range Interpretation Code Description Data Tavo rce(s) Supporting Document(s) [facility] COL[facility] yellow NORMAL: Yellow [facility] CLARITY clear NORMAL: Clear [facility] Specific gravity of Urine by Test strip 1.015 1.001 - 1.030 [facility] pH 5 5 - 9 [facility] Glucose [Mass/volume] in Urine by Test strip [facility] Bil[facility] [Presence] in Urine by Test strip NEG NORMAL: Negative [facility] Ketones [Presence] in Urine by Test strip NEG NORMAL: Negative [facility] Protein [Mass/volume] in Urine by Test strip [facility] Nitrite [Presence] in Urine by Test strip NEG NORMAL: Negative [facility] BLOOD NEG NORMAL: Negative [facility] LEUK EST NEG NORMAL: Negative [facility] Urobilinogen [Mass/volume] in Urine by Test strip NOR less darren n 1.0 mg/dL [facility] MICROSCOPIC Not Indicate [facility] ID Date Data Source [id number] 11/22/2020 10:53:00 AM EDT [facility] (Jon Elizondo MD) Name Value Range Interpretation Code Description Data Tavo rce(s) Supporting Document(s) Laboratory test finding (navigational concept) Laboratory test result [facility] (Jon Elizondo MD) LIPID PANEL Laboratory test finding (navigational concept) 109 mg/dL 1 31-200 Below low normal [facility] (Jon Elizondo MD) Laboratory test finding (navigational concept) 45 mg/dL 35-160 [facility] (Jon Elizondo MD) Laboratory test finding (navigational concept) 45 mg/dL 29-86 [facility] (Jon Elizondo MD) Laboratory test finding (navigational concept) 2.4 3.4-4.9 Below low normal [facility] (Jon Elizondo MD) Laboratory test finding (navigational concept) 66 mg/dL 65-175 [facility] (Jon Elizondo MD) Laboratory test finding (navigational concept) 1.47 1.00-3.55 [facility] (Jon Elizondo MD) CVE RISK CHOL/HDL LDL/HDL MEN: 1/2 AVERAGE 3.43 1.00 AVERAGE 4.97 3.55 2X AVERAGE 9.55 6.25 3X AVERAGE 23.99 7.99 WOMEN: 1/2 AVERAGE 3.27 1.47 AVERAGE 4.44 3.22 2X AVERAGE 7.05 5.03 3X AVERAGE 11.04 6.14 ID Date Data Source [id number] 11/22/2020 10:53:00 AM EDT [facility] (Jon Elizondo MD) Name Value Range Interpretation Code Description Data Tavo rce(s) Supporting Document(s) Laboratory test finding (navigational concept) Laboratory test result [facility] (Jon Elizondo MD) COMPREHENSIVE METABOLIC PANEL Laboratory test finding (navigational concept) 5.4 meq/L 3 .6-5.0 Above high normal [facility] (Jon Elizondo MD) Laboratory test finding (navigational concept) 142 meq/L 134-153 [facility] (Jon Elizondo MD) Laboratory test finding (navigational concept) 22 meq/L 22-30 [facility] (Jon Elizondo MD) Laboratory test finding (navigational concept) 109 meq/L 9 8-107 Above high normal [facility] (Jon Elizondo MD) Laboratory test finding (navigational concept) 1.6 mg/dL 0 .7-1.5 Above high normal [facility] (Jon Elizondo MD) Laboratory test finding (navigational concept) 110 mg/dL 7 0-99 Above high normal [facility] (Jon Elizondo MD) Laboratory test finding (navigational concept) 48 mg/dL 7-21 Above high normal [facility] (Jon Elizondo MD) Laboratory test finding (navigational concept) 30 8-27 Above high normal [facility] (Jon Elizondo MD) Laboratory test finding (navigational concept) 6.4 g/dL 6.3-8.2 [facility] (Jon Elizondo MD) Laboratory test finding (navigational concept) 2.2 GM/DL 2 .4-3.2 Below low normal [facility] (Jon Elizondo MD) Laboratory test finding (navigational concept) 4.2 g/dL 3.9-5.0 [facility] (Jon Elizondo MD) Laboratory test finding (navigational concept) 1.9 0.8-2.0 [facility] (Jon Elizondo MD) Laboratory test finding (navigational concept) 9.3 mg/dL 8.4-10.2 [facility] (Jon Elizondo MD) Laboratory test finding (navigational concept) Laboratory test resu lt 0.2-1.3 [facility] (Jon Elizondo MD) Laboratory test finding (navigational concept) 219 U/L 38-126 Above high normal [facility] (Jon Elizondo MD) Laboratory test finding (navigational concept) 20 U/L 5-40 [facility] (Jon Elizondo MD) Laboratory test finding (navigational concept) 11.0 mmol/L 8.0-16.0 [facility] (Jon Elizondo MD) Laboratory test finding (navigational concept) 16 U/L 7-56 [facility] (Jon Elizondo MD) Laboratory test finding (navigational concept) 46 mL/min [facility] (Jon Elizondo MD) Laboratory test finding (navigational concept) 65 yrs [facility] (Jon Elizondo MD) Laboratory test finding (navigational concept) 56 mL/min [facility] (Jon Elizondo MD) Male GFR Interprentation 20-49 yrs >60 mL/min Normal 50-59 yrs >56 mL/min Normal 60-69 yrs >49 mL/min Normal 70-79yrs >42 mL/min Normal 80 and above >35 mL/min Normal Female GFR Interpretation 20-39 yrs >60 mL/min Normal 40-49 yrs >58 mL/min Normal 50-59 yrs >51 mL/min Normal 60-69 yrs >45 mL/min Normal 70-79 yrs >39 mL/min Normal 80 and above >32 mL/min Normal ID Date Data Source [id number] 11/22/2020 10:53:00 AM EDT [facility] (Jon Elizondo MD) Name Value Range Interpretation Code Description Data Tavo rce(s) Supporting Document(s) Hemoglobin A1c/Hemoglobin.total in Blood 5.2 % 4.4-6.1 [facility] (Jon Elizondo MD) {A1] {HB] Iron [Mass/volume] in Serum or Plasma 42 ug/dL 42-135 [facility] (Jon Elizondo MD) Magnesium [Mass/volume] in Serum or Plasma 2.2 mg/dL 1.7-2.2 [facility] (Jon Elizondo MD) ID Date Data Source [id number] 11/22/2020 10:53:00 AM EDT [facility] (Jon Elizondo MD) Name Value Range Interpretation Code Description Data Tavo rce(s) Supporting Document(s) Laboratory test finding (navigational concept) Laboratory test result [facility] (Jon Elizondo MD) COMPLETE BLOOD COUNT Laboratory test finding (navigational concept) 6.7 10^3/uL 4.2-11.0 [facility] (Jon Elizondo MD) Laboratory test finding (navigational concept) 2.85 10^6/uL 4 .50-6.30 Below low normal [facility] (Jon Elizondo MD) Laboratory test finding (navigational concept) 9.4 g/dL 1 4.0-16.0 Below low normal [facility] (Jon Elizondo MD) Laboratory test finding (navigational concept) 101.1 fL 8 0.0-94.0 Above high normal [facility] (Jon Elizondo MD) Laboratory test finding (navigational concept) 28.8 % 4 1.0-51.0 Below low normal [facility] (Jon Elizondo MD) Laboratory test finding (navigational concept) 17.1 % 1 1.5-14.8 Above high normal [facility] (Jon Elizondo MD) Laboratory test finding (navigational concept) 32.6 g/dL 31.0-36.0 [facility] (Jon Elizondo MD) Laboratory test finding (navigational concept) 33.0 pg 27.0-34.0 [facility] (Jon Elizondo MD) Laboratory test finding (navigational concept) 9.7 fL 7.4-10.4 [facility] (Jon Elizondo MD) Laboratory test finding (navigational concept) 144 10^3/uL 1 50-450 Below low normal [facility] (Jon Elizondo MD) Laboratory test finding (navigational concept) 5.8 % 3.0-8.0 [facility] (Jon Elizondo MD) Laboratory test finding (navigational concept) 7.2 % 25.0-40 .0 Below low normal [facility] (Jon Eliozndo MD) Laboratory test finding (navigational concept) 85.8 % 3 7.0-80.0 Above high normal [facility] (Jon Elizondo MD) Laboratory test finding (navigational concept) 0.1 % 0.0-2.0 [facility] (Jon Elizondo MD) Laboratory test finding (navigational concept) 0.7 % 0.0-7.0 [facility] (Jon Elizondo MD) Laboratory test finding (navigational concept) 0.0 % 0.0-0.0 [facility] (Jon Elizondo MD) Laboratory test finding (navigational concept) 0.4 % 0.0-0.0 Above high normal [facility] (Jon Elizondo MD) Laboratory test finding (navigational concept) 0.48 10^3/uL 0 .60-3.40 Below low normal [facility] (Jon Elizondo MD) Laboratory test finding (navigational concept) 0.39 10^3/uL 0.00-0.90 [facility] (Jon Elizondo MD) Laboratory test finding (navigational concept) 5.73 10^3/uL 2.00-6.90 [facility] (Jon Elizondo MD) Laboratory test finding (navigational concept) 0.05 10^3/uL 0.00-0.70 [facility] (Jon Elizondo MD) Laboratory test finding (navigational concept) 0.01 10^3/uL 0.00-0.20 [facility] (Jon Elizondo MD) Laboratory test finding (navigational concept) 0.00 10^3/uL 0.00-0.00 [facility] (Jon Elizondo MD) Laboratory test finding (navigational concept) 0.03 10^3/uL 0.00-0.10 [facility] (Jon Elizondo MD) Laboratory test finding (navigational concept) Laboratory test result [facility] (Jon Elizondo MD) Laboratory test finding (navigational concept) Laboratory test result [facility] (Jon Elizondo MD) ID Date Data Source [id number] 11/22/2020 10:53:00 AM EDT [facility] (Jon Elizondo MD) Name Value Range Interpretation Code Description Data Tavo rce(s) Supporting Document(s) Natriuretic peptide.B prohormone N-Terminal [Mass/volu me] in Serum or Plasma 4405 pg/mL 0-125 Above high normal [facility] (Jon Elizondo MD) Thyrotropin [Units/volume] in Serum or Plasma by Detec tion limit <= 0.005 mIU/L 3.34 uIU/mL 0.47-5.01 [facility] (Jon Elizondo MD) ID Date Data Source [id number] 11/22/2020 12:14:00 PM EDT [facility] Name Value Range Interpretation Code Description Data Tavo rce(s) Supporting Document(s) BNP 4405 PG/ML 0 - 125 [facility] ID Date Data Source [id number] 11/22/2020 12:04:00 PM EDT [facility] Name Value Range Interpretation Code Description Data Tavo rce(s) Supporting Document(s) Thyrotropin [Units/volume] in Serum or Plasma by Detec tion limit <= 0.05 mIU/L 3.34 uIU/mL 0.47 - 5.01 [facility] ID Date Data Source [id number] 11/22/2020 11:54:00 AM EDT [facility] Name Value Range Interpretation Code Description Data Tavo rce(s) Supporting Document(s) CVE PANEL [facility] LIPID PANEL Cholesterol [Mass/volume] in Serum or Plasma 109 MG/DL 131 - 200 L [facility] Deprecated Triglyceride [Mass/volume] in Serum or Plasma 45 MG/DL 3 5 - 160 [facility] HDL 45 MG/DL 29 - 86 [facility] Cholesterol in LDL [Mass/volume] in Serum or Plasma by Direc t assay 66 mg/dL 65 - 175 [facility] Cholesterol.total/Cholesterol in HDL [Mass Ratio] in Serum o r Plasma 2.4 3.4 - 4.9 L [facility] LDL/HDL 1.47 1.00 - 3.55 [facility] CVE RISK CHOL/HDL LDL/HDLMEN: 1/2 AVERAGE 3.43 1.00 AVERAGE 4.97 3.55 2X AVERAGE 9.55 6.25 3X AVERAGE 23.99 7.99WOMEN: 1/2 AVERAGE 3.27 1.47 AVERAGE 4.44 3.22 2X AVERAGE 7.05 5.03 3X AVERAGE 11.04 6.14 ID Date Data Source [id number] 11/22/2020 11:54:00 AM EDT [facility] Name Value Range Interpretation Code Description Data Tavo rce(s) Supporting Document(s) COMPREHENSIVE METABOLIC PANEL [facility] COMPREHENSIVE METABOLIC PANEL Sodium [Moles/volume] in Serum or Plasma 142 mEq/L 134 - 153 [facility] Potassium [Moles/volume] in Serum or Plasma 5.4 mEq/L 3.6 - 5.0 H [facility] Chloride [Moles/volume] in Serum or Plasma 109 mEq/L 98 - 107 H [facility] Carbon dioxide, total [Moles/volume] in Serum or Plasma 22 MEQ/L 22 - 30 [facility] Glucose [Mass/volume] in Serum or Plasma 110 MG/DL 70 - 99 H [facility] BUN 48 MG/DL 7 - 21 H [facility] Creatinine [Mass/volume] in Serum or Plasma 1.6 MG/DL 0.7 - 1.5 H [facility] BUN/CREAT 30 8 - 27 H [facility] Protein [Mass/volume] in Serum or Plasma 6.4 G/DL 6.3 - 8.2 [facility] Albumin [Mass/volume] in Serum or Plasma 4.2 G/DL 3.9 - 5.0 [facility] Globulin [Mass/volume] in Serum by calculation 2.2 GM/DL 2.4 - 3.2 L [facility] A/G RATIO 1.9 0.8 - 2.0 [facility] Calcium [Mass/volume] in Serum or Plasma 9.3 MG/DL 8.4 - 10.2 [facility] Bilirubin.total [Mass/volume] in Serum or Plasma <0.7 MG/DL 0.2 - 1.3 [facility] Alkaline phosphatase [Enzymatic activity/volume] in Serum or Plasma 219 U/L 38 - 126 H [facility] Aspartate aminotransferase [Enzymatic activity/volume] in Serum or Plasma 20 U/L 5 - 40 [facility] Alanine aminotransferase [Enzymatic activity/volume] in Seru m or Plasma 16 U/L 7 - 56 [facility] Anion gap 3 in Serum or Plasma 11.0 mmol/L 8.0 - 16.0 [facility]GE 65 y[facility] mL/min [facility] AFR AMER GFR 56 mL/min [facility] Male GFR In terprentation 20-49 yrs >60 mL/min Normal 50-59 yrs >56 mL/min Normal 60-69 yrs >49 mL/min Normal 70-79yrs >42 mL/min Normal 80 and above >35 mL/min Normal Female GFR Interpretation 20-39 yrs >60 mL/min Normal 40-49 yrs >58 mL/min Normal 50-59 yrs >51 mL/min Normal 60-69 yrs >45 mL/min Normal 70-79 yrs >39 mL/min Normal 80 and above >32 mL/min Normal ID Date Data Source [id number] 11/22/2020 11:52:00 AM EDT [facility] Name Value Range Interpretation Code Description Data Tavo rce(s) Supporting Document(s) Magnesium [Mass/volume] in Serum or Plasma 2.2 MG/DL 1.7 - 2.2 [facility] ID Date Data Source [id number] 11/22/2020 11:52:00 AM EDT [facility] Name Value Range Interpretation Code Description Data Tavo rce(s) Supporting Document(s) Iron [Mass/volume] in Serum or Plasma 42 UG/DL 42 - 135 [facility] ID Date Data Source [id number] 11/22/2020 11:22:00 AM EDT [facility] Name Value Range Interpretation Code Description Data Tavo rce(s) Supporting Document(s) Hemoglobin A1c/Hemoglobin.total in Blood 5.2 % 4.4 - 6.1 [facility] {A1]{HB] ID Date Data Source [id number] 11/22/2020 11:09:00 AM EDT [facility] Name Value Range Interpretation Code Description Data Tavo rce(s) Supporting Document(s) CBC W/AUTOMATED DIFF [facility] COMPLETE BLOOD COUNT Leukocytes [#/volume] in Blood by Automated count 6.7 10^3/uL 4.2 - 1 1.0 [facility] Erythrocytes [#/volume] in Blood by Automated count 2.85 10^6/uL 4. 50 - 6.30 L [facility] Hemoglobin [Mass/volume] in Blood 9.4 g/dL 14.0 - 16.0 L [facility] Hematocrit [Volume Fraction] of Blood by Automated count 28.8 % 4 1.0 - 51.0 L [facility] Erythrocyte mean corpuscular volume [Entitic volume] b y Automated count 101.1 fL 80.0 - 94.0 H [facility] Erythrocyte mean corpuscular hemoglobin [Entitic mass] by Automated count 33.0 pg 27.0 - 34.0 [facility] Erythrocyte mean corpuscular hemoglobin concentration [Mass/volume] by Automated count 32.6 g/dL 31.0 - 36.0 [facility] Erythrocyte distribution width [Ratio] by Automated count 17.1 % 11.5 - 14.8 H [facility] Platelets [#/volume] in Blood by Automated count 144 10^3/uL 150 - 45 0 L [facility] Platelet mean volume [Entitic volume] in Blood by Automated count 9.7 fL 7.4 - 10.4 [facility] Neutrophils/100 leukocytes in Blood by Automated count 85.8 % 37. 0 - 80.0 H [facility] Lymphocytes/100 leukocytes in Blood by Manual count 7.2 % 25.0 - 40.0 L [facility] Monocytes/100 leukocytes in Blood by Automated count 5.8 % 3.0 - 8.0 [facility] Eosinophils/100 leukocytes in Blood by Automated count 0.7 % 0.0 - 7.0 [facility] Basophils/100 leukocytes in Blood by Automated count 0.1 % 0.0 - 2.0 [facility] %IG 0.4 % 0.0 - 0.0 [facility] %NRBC 0.0 % 0.0 - 0.0 [facility] Neutrophils [#/volume] in Blood by Automated count 5.73 10^3/uL 2.00 - 6.90 [facility] Lymphocytes [#/volume] in Blood by Automated count 0.48 10^3/uL 0.60 - 3.40 L [facility] Monocytes [#/volume] in Blood by Automated count 0.39 10^3/uL 0.00 - 0.90 [facility] Eosinophils [#/volume] in Blood by Automated count 0.05 10^3/uL 0.00 - 0.70 [facility] Basophils [#/volume] in Blood by Automated count 0.01 10^3/uL 0.00 - 0.20 [facility] #IG 0.03 10^3/uL 0.00 - 0.10 [facility] #NRBC 0.00 10^3/uL 0.00 - 0.00 [facility] MANUAL DIFF NOT INDICATED [facility] RBC MORPH NOT INDICATED [facility] ID Date Data Source [id number] 11/05/2020 10:12:00 AM EDT [facility] ([facility] Name Value Range Interpretation Code Description Data Tavo rce(s) Supporting Document(s) Laboratory test finding (navigational concept) Laboratory test result [facility] ([facility]) ID Date Data Source [id number] 08/08/2020 03:23:00 PM EDT [facility] ([facility] Name Value Range Interpretation Code Description Data Tavo rce(s) Supporting Document(s) Carotid Ultrasound Bilateral Laboratory test result [facility] ([facility]) ID Date Data Source [id number] 07/24/2020 08:04:00 AM EDT [facility] (Jon Elizondo MD) Name Value Range Interpretation Code Description Data Tavo rce(s) Supporting Document(s) Laboratory test finding (navigational concept) Laboratory test result [facility] (Jon Elizondo MD) FASTING~.~.~<DG1.3.1>R31.21</DG1.3.1><DG1.3.1>R31.21</DG1.3.1><DG1.3.1>R31.21</D G1.3.1><DG1. Laboratory test finding (navigational concept) 139 meq/L 134-153 [facility] (Jon Elizondo MD) FASTING~.~.~<DG1.3.1>R31.21</DG1.3.1><DG1.3.1>R31.21</DG1.3.1><DG1.3.1>R31.21</D G1.3.1><DG1. Laboratory test finding (navigational concept) 104 meq/L 98-107 [facility] (Jon Elizondo MD) FASTING~.~.~<DG1.3.1>R31.21</DG1.3.1><DG1.3.1>R31.21</DG1.3.1><DG1.3.1>R31.21</D G1.3.1><DG1. Laboratory test finding (navigational concept) 4.7 meq/L 3.6-5.0 [facility] (Jon Elizondo MD) FASTING~.~.~<DG1.3.1>R31.21</DG1.3.1><DG1.3.1>R31.21</DG1.3.1><DG1.3.1>R31.21</D G1.3.1><DG1. Laboratory test finding (navigational concept) 23 meq/L 22-30 [facility] (Jon Elizondo MD) FASTING~.~.~<DG1.3.1>R31.21</DG1.3.1><DG1.3.1>R31.21</DG1.3.1><DG1.3.1>R31.21</D G1.3.1><DG1. Laboratory test finding (navigational concept) 1.3 mg/dL 0.7-1.5 [facility] (Jon Elizondo MD) FASTING~.~.~<DG1.3.1>R31.21</DG1.3.1><DG1.3.1>R31.21</DG1.3.1><DG1.3.1>R31.21</D G1.3.1><DG1. Laboratory test finding (navigational concept) 122 mg/dL 7 0-99 Above high normal [facility] (Jon Elizondo MD) FASTING~.~.~<DG1.3.1>R31.21</DG1.3.1><DG1.3.1>R31.21</DG1.3.1><DG1.3.1>R31.21</D G1.3.1><DG1. Laboratory test finding (navigational concept) 39 mg/dL 7-21 Above high normal [facility] (Jon Elizondo MD) FASTING~.~.~<DG1.3.1>R31.21</DG1.3.1><DG1.3.1>R31.21</DG1.3.1><DG1.3.1>R31.21</D G1.3.1><DG1. Laboratory test finding (navigational concept) 30 8-27 Above high normal [facility] (Jon Elizondo MD) FASTING~.~.~<DG1.3.1>R31.21</DG1.3.1><DG1.3.1>R31.21</DG1.3.1><DG1.3.1>R31.21</D G1.3.1><DG1. Laboratory test finding (navigational concept) 12.0 mmol/L 8.0-16.0 [facility] (Jon Elizondo MD) FASTING~.~.~<DG1.3.1>R31.21</DG1.3.1><DG1.3.1>R31.21</DG1.3.1><DG1.3.1>R31.21</D G1.3.1><DG1. Laboratory test finding (navigational concept) 9.8 mg/dL 8.4-10.2 [facility] (Jon Elizondo MD) FASTING~.~.~<DG1.3.1>R31.21</DG1.3.1><DG1.3.1>R31.21</DG1.3.1><DG1.3.1>R31.21</D G1.3.1><DG1. Laboratory test finding (navigational concept) 65 yrs [facility] (Jon Elizondo MD) FASTING~.~.~<DG1.3.1>R31.21</DG1.3.1><DG1.3.1>R31.21</DG1.3.1><DG1.3.1>R31.21</D G1.3.1><DG1. Laboratory test finding (navigational concept) 59 mL/min [facility] (Jon Elizondo MD) FASTING~.~.~<DG1.3.1>R31.21</DG1.3.1><DG1.3.1>R31.21</DG1.3.1><DG1.3.1>R31.21</D G1.3.1><DG1. Laboratory test finding (navigational concept) Laboratory test result [facility] (Jon Elizondo MD) FASTING~.~.~<DG1.3.1>R31.21</DG1.3.1><DG1.3.1>R31.21</DG1.3.1><DG1.3.1>R31.21</D G1.3.1><DG1. ID Date Data Source [id number] 07/24/2020 08:04:00 AM EDT [facility] (Jon Elizondo MD) Name Value Range Interpretation Code Description Data Tavo rce(s) Supporting Document(s) Laboratory test finding (navigational concept) Laboratory test result [facility] (Jon Elizondo MD) FASTING~.~.~<DG1.3.1>R31.21</DG1.3.1><DG1.3.1>R31.21</DG1.3.1><DG1.3.1>R31.21</D G1.3.1><DG1. Laboratory test finding (navigational concept) 133 mg/dL 131-200 [facility] (Jon Elizondo MD) FASTING~.~.~<DG1.3.1>R31.21</DG1.3.1><DG1.3.1>R31.21</DG1.3.1><DG1.3.1>R31.21</D G1.3.1><DG1. Laboratory test finding (navigational concept) 82 mg/dL 35-160 [facility] (Jon Elizondo MD) FASTING~.~.~<DG1.3.1>R31.21</DG1.3.1><DG1.3.1>R31.21</DG1.3.1><DG1.3.1>R31.21</D G1.3.1><DG1. Laboratory test finding (navigational concept) 55 mg/dL 29-86 [facility] (Jon Elizondo MD) FASTING~.~.~<DG1.3.1>R31.21</DG1.3.1><DG1.3.1>R31.21</DG1.3.1><DG1.3.1>R31.21</D G1.3.1><DG1. Laboratory test finding (navigational concept) 72 mg/dL 65-175 [facility] (Jon Elizondo MD) FASTING~.~.~<DG1.3.1>R31.21</DG1.3.1><DG1.3.1>R31.21</DG1.3.1><DG1.3.1>R31.21</D G1.3.1><DG1. Laboratory test finding (navigational concept) 2.4 3.4-4.9 Below low normal [facility] (Jon Elizondo MD) FASTING~.~.~<DG1.3.1>R31.21</DG1.3.1><DG1.3.1>R31.21</DG1.3.1><DG1.3.1>R31.21</D G1.3.1><DG1. Laboratory test finding (navigational concept) 1.31 1.00-3.55 [facility] (Jon Elizondo MD) FASTING~.~.~<DG1.3.1>R31.21</DG1.3.1><DG1.3.1>R31.21</DG1.3.1><DG1.3.1>R31.21</D G1.3.1><DG1. ID Date Data Source [id number] 07/24/2020 08:04:00 AM EDT [facility] (Jon Elizondo MD) Name Value Range Interpretation Code Description Data Tavo rce(s) Supporting Document(s) Prostate specific Ag [Mass/volume] in Serum or Plasma 1.01 ng/mL 0.00 -4.00 [facility] (Jon Elizondo MD) FASTING~.~.~<DG1.3.1>R31.21</DG1.3.1><DG1.3.1>R31.21</DG1.3.1><DG1.3.1>R31.21</D G1.3.1><DG1. ID Date Data Source [id number] 07/24/2020 08:04:00 AM EDT [facility] (Jon Elizondo MD) Name Value Range Interpretation Code Description Data Tavo rce(s) Supporting Document(s) Laboratory test finding (navigational concept) Laboratory test result [facility] (Jon Elizondo MD) FASTING~.~.~<DG1.3.1>R31.21</DG1.3.1><DG1.3.1>R31.21</DG1.3.1><DG1.3.1>R31.21</D G1.3.1><DG1. Laboratory test finding (navigational concept) Laboratory test result [facility] (Jon Elizondo MD) FASTING~.~.~<DG1.3.1>R31.21</DG1.3.1><DG1.3.1>R31.21</DG1.3.1><DG1.3.1>R31.21</D G1.3.1><DG1. Laboratory test finding (navigational concept) Laboratory test result [facility] (Jon Elizondo MD) FASTING~.~.~<DG1.3.1>R31.21</DG1.3.1><DG1.3.1>R31.21</DG1.3.1><DG1.3.1>R31.21</D G1.3.1><DG1. Laboratory test finding (navigational concept) Laboratory test result [facility] (Jon Elizondo MD) FASTING~.~.~<DG1.3.1>R31.21</DG1.3.1><DG1.3.1>R31.21</DG1.3.1><DG1.3.1>R31.21</D G1.3.1><DG1. Laboratory test finding (navigational concept) 1.015 1.001-1.030 [facility] (Jon Elizondo MD) FASTING~.~.~<DG1.3.1>R31.21</DG1.3.1><DG1.3.1>R31.21</DG1.3.1><DG1.3.1>R31.21</D G1.3.1><DG1. Laboratory test finding (navigational concept) 5 5-9 [facility] (Jon Elizondo MD) FASTING~.~.~<DG1.3.1>R31.21</DG1.3.1><DG1.3.1>R31.21</DG1.3.1><DG1.3.1>R31.21</D G1.3.1><DG1. Laboratory test finding (navigational concept) Laboratory test result [facility] (Jon Elizondo MD) FASTING~.~.~<DG1.3.1>R31.21</DG1.3.1><DG1.3.1>R31.21</DG1.3.1><DG1.3.1>R31.21</D G1.3.1><DG1. Laboratory test finding (navigational concept) Laboratory test result [facility] (Jon Elizondo MD) FASTING~.~.~<DG1.3.1>R31.21</DG1.3.1><DG1.3.1>R31.21</DG1.3.1><DG1.3.1>R31.21</D G1.3.1><DG1. Laboratory test finding (navigational concept) Laboratory test result [facility] (Jon Elizondo MD) FASTING~.~.~<DG1.3.1>R31.21</DG1.3.1><DG1.3.1>R31.21</DG1.3.1><DG1.3.1>R31.21</D G1.3.1><DG1. Laboratory test finding (navigational concept) 30 [facility] (Jon Elizondo MD) FASTING~.~.~<DG1.3.1>R31.21</DG1.3.1><DG1.3.1>R31.21</DG1.3.1><DG1.3.1>R31.21</D G1.3.1><DG1. Laboratory test finding (navigational concept) Laboratory test result [facility] (Jon Elizondo MD) FASTING~.~.~<DG1.3.1>R31.21</DG1.3.1><DG1.3.1>R31.21</DG1.3.1><DG1.3.1>R31.21</D G1.3.1><DG1. Laboratory test finding (navigational concept) Laboratory test result [facility] (Jon Elizondo MD) FASTING~.~.~<DG1.3.1>R31.21</DG1.3.1><DG1.3.1>R31.21</DG1.3.1><DG1.3.1>R31.21</D G1.3.1><DG1. Laboratory test finding (navigational concept) Laboratory test result [facility] (Jon Elizondo MD) FASTING~.~.~<DG1.3.1>R31.21</DG1.3.1><DG1.3.1>R31.21</DG1.3.1><DG1.3.1>R31.21</D G1.3.1><DG1. Laboratory test finding (navigational concept) Laboratory test result [facility] (Jon Elizondo MD) FASTING~.~.~<DG1.3.1>R31.21</DG1.3.1><DG1.3.1>R31.21</DG1.3.1><DG1.3.1>R31.21</D G1.3.1><DG1. Laboratory test finding (navigational concept) Laboratory test result [facility] (Jon Elizondo MD) FASTING~.~.~<DG1.3.1>R31.21</DG1.3.1><DG1.3.1>R31.21</DG1.3.1><DG1.3.1>R31.21</D G1.3.1><DG1. Laboratory test finding (navigational concept) Laboratory test result [facility] (Jon Elizondo MD) FASTING~.~.~<DG1.3.1>R31.21</DG1.3.1><DG1.3.1>R31.21</DG1.3.1><DG1.3.1>R31.21</D G1.3.1><DG1. Laboratory test finding (navigational concept) Laboratory test result [facility] (Jon Elizondo MD) FASTING~.~.~<DG1.3.1>R31.21</DG1.3.1><DG1.3.1>R31.21</DG1.3.1><DG1.3.1>R31.21</D G1.3.1><DG1. Laboratory test finding (navigational concept) Laboratory test result [facility] (Jon Elizondo MD) FASTING~.~.~<DG1.3.1>R31.21</DG1.3.1><DG1.3.1>R31.21</DG1.3.1><DG1.3.1>R31.21</D G1.3.1><DG1. ID Date Data Source [id number] 07/24/2020 02:43:00 PM EDT [facility] Name Value Range Interpretation Code Description Data Tavo rce(s) Supporting Document(s) BASIC METABOLIC PANEL [facility] BASIC METABOLIC PANEL Sodium [Moles/volume] in Serum or Plasma 139 mEq/L 134 - 153 [facility] Potassium [Moles/volume] in Serum or Plasma 4.7 mEq/L 3.6 - 5.0 [facility] Chloride [Moles/volume] in Serum or Plasma 104 mEq/L 98 - 107 [facility] Carbon dioxide, total [Moles/volume] in Serum or Plasma 23 MEQ/L 22 - 30 [facility] Glucose [Mass/volume] in Serum or Plasma 122 MG/DL 70 - 99 H [facility] BUN 39 MG/DL 7 - 21 [facility] Creat[facility] [Mass/volume] in Serum or Plasma 1.3 MG/DL 0.7 - 1.5 [facility] BUN/CREAT 30 8 - 27 H [facility] Calcium [Mass/volume] in Serum or Plasma 9.8 MG/DL 8.4 - 10.2 [facility] Anion gap 3 in Serum or Plasma 12.0 mmol/L 8.0 - 16.0 [facility] AGE 65 yrs [facility] AFR AMER GFR >60 mL/min [facility] NON-AA GFR 59 mL/min [facility] Male GFR Inter prentation 20-49 yrs >60 mL/min Normal 50-59 yrs >56 mL/min Normal 60-69 yrs >49 mL/min Normal 70-79yrs >42 mL/min Normal 80 and above >35 mL/min Normal Female GFR Interpretation 20-39 yrs >60 mL/min Normal 40-49 yrs >58 mL/min Normal 50-59 yrs >51 mL/min Normal 60-69 yrs >45 mL/min Normal 70-79 yrs >39 mL/min Normal 80 and above >32 mL/min Normal ID Date Data Source [id number] 07/24/2020 02:42:00 PM EDT [facility] Name Value Range Interpretation Code Description Data Tavo rce(s) Supporting Document(s) [facility] Cholesterol [Mass/volume] in Serum or Plasma 133 MG/DL 131 - 200 [facility] Deprecated Triglyceride [Mass/volume] in Serum or Plasma 82 MG/DL 3 5 - 160 [facility] HDL 55 MG/DL 29 - 86 [facility] Cholesterol in LDL [Mass/volume] in Serum or Plasma by Direc t assay 72 mg/dL 65 - 175 [facility] Cholesterol.total/Cholesterol in HDL [Mass Ratio] in Serum o r Plasma 2.4 3.4 - 4.9 L [facility] LDL/HDL 1.31 1.00 - 3.55 [facility] CVE RISK CHOL/HDL LDL/HDLMEN: 1/2 AVERAGE 3.43 1.00 AVERAGE 4.97 3.55 2X AVERAGE 9.55 6.25 3X AVERAGE 23.99 7.99WOMEN: 1/2 AVERAGE 3.27 1.47 AVERAGE 4.44 3.22 2X AVERAGE 7.05 5.03 3X AVERAGE 11.04 6.14 ID Date Data Source [id number] 07/24/2020 02:18:00 PM EDT [facility] Name Value Range Interpretation Code Description Data Tavo rce(s) Supporting Document(s) Prostate specific Ag [Mass/volume] in Serum or Plasma 1.01 ng/mL 0.00 - 4.00 [facility] \\BLDo\\PSA INTERPRETA TION\\BLDx\\ The PSA assay should not be used alone for a screening test or diagnosis for presence or absence of malignant disease. Predictions of disease recurrence should not be based solely on values obtained from serial patient serum values. The PSA result was determined by "[employer]", on the [employer] EDGAR 6000. Values obtained with different assay methods or kits cannot be used interchangeably. ID Date Data Source [id number] 07/24/2020 02:03:00 PM EDT [facility] Name Value Range Interpretation Code Description Data Tavo rce(s) Supporting Document(s) [facility] URINAL[facility] SOURCE R [facility] COLOR yellow NORMAL: Yellow [facility] CLARITY clear NORMAL: Clear [facility] Specific gravity of Urine by Test strip 1.015 1.001 - 1.030 [facility] pH 5 5 - 9 [facility] Glucose [Mass/volume] in Urine by Test strip NORM NORMAL: Negat [facility] Bilirubin.total [Presence] in Urine by Test strip NEG NORMAL: Negative [facility] Ketones [Presence] in Urine by Test strip NEG NORMAL: Negative [facility] Protein [Mass/volume] in Urine by Test strip 30 NORMAL: Negat [facility] Nitrite [Presence] in Urine by Test strip NEG NORMAL: Negative [facility] BLOOD NEG NORMAL: Negative [facility] Leukocyte esterase [Presence] in Urine by Test strip NEG [facility] L: Negative [facility] Urobilinogen [Mass/volume] in Urine by Test strip NOR less darren n 1.0 mg/dL [facility] MICROSCOPIC See Below [facility] ital WBC None Seen NORMAL: NONE SEEN [facility] Erythrocytes [#/volume] in Urine by Test strip None Seen NORMAL: NON E SEEN [facility] Mucus [Presence] in Urine sediment by Light microscopy Trace NORMAL: NONE SEEN [facility] ID Date Data Source [id number] 04/23/2020 05:35:32 AM EST [facility] Name Value Range Interpretation Code Description Data Tavo rce(s) Supporting Document(s) ED Provider Note [facility] OZWDTr5hWzQKOnOw16/EZCqqQXDgh6SeOBaoVYw2ZJgoCNUxS8HlSMG3aN5rRPT3OBsOSbBkBiUrQCYv lbm [file] AWInRfPfWMGxGvYxRX3QKx7VFxU5TPL3sSIgOo1HSHG4UVnSAnYbXH2LNOw= ID Date Data Source [id number] 04/18/2020 10:44:00 [place] [address] PHONE: [phone] FAX: [phone] Name .................. : FERNIE Charlton Acct Number.................. : [id number] ROOM. ................. : TR-03 Number ................... : [id number] Stay type ............. : E/R Discharge Date......... ... : Admit Date ......... : 04/15/20 Admit Phys .................... : OLAMIDE DURON Date of ....... : 1955 Family Phys ................... : CARO DILLON Phone .................. : [phone] Age ................................ : 64 Film# .................. .:[id number] Sex ................................. : M Unsigned transcriptions are preliminary reports and do not represent a medical or legal document CT HEAD(STROKE PROTOCOL) W/O [id number] COMPLETE:04/15/20 08:11 1387 Reason(s): left hemiplegioa, aphasia CT SCAN OF THE HEAD WITHOUT IV CONTRAST, 04/15/20: INDICATION: Left hemiplegia and aphasia. FINDINGS: The ventricular system is normal. No evidence for parenchymal loss is noted. No evidence for masses or mass effects are identified. No evidence for subdural, epidural, or subarachnoid hemorrhage is noted. The bones and soft tissues also appear normal. IMPRESSION: Unremarkable CT scan of the head without intravenous contrast. While performing the above CT examination, radiation dose reduction was accomplished utilizing automated exposure control, adjusting of the mA and kV based on the patient's body size and/or the use of imperative reconstructive techniques. CT dose 854.4 mGycm. Examination dictated by MARY Wells. Examination was reviewed with Sagrario Cueva MD, radiologist at the time of this dictation. Electronically Reviewed and Signed By Sagrario Cueva MD , 04/18/20 10:44, KG Transcribe Initials: SSR, Transcribe Date: 04/15/20 09:09, Dictation Date: Page 1 of 2 [facility] [address] [place] [address] PHONE: [phone] FAX: [phone] Name .................. : FERNIE VEGA Zoltan Acct Number.................. : [id number] ROOM. ................. : TR-03 MR Number ................... : [id number] Stay type ............. : E/R Discharge Date......... ... : Admit Date ......... : 04/15/20 Admit Phys .................... : OLAMIDE DURON Date of ....... : 1955 Family Phys ................... : CARO WILMA Phone .................. : [phone] Age ................................ : 64 Film# .................. .:[id number] Sex ................................. : M Unsigned transcriptions are preliminary reports and do not represent a medical or legal document CT HEAD(STROKE PROTOCOL) W/O 11700 COMPLETE:04/15/20 08:11 1387 Reason(s): left hemiplegioa, aphasia Copy for: CARO ACOSTA via modem Copy for: EMERGENCY DEPT via modem Copy for: 710 MED REC DISCHARGED Page 2 of 2 Name Value Range Interpretation Code Description Data Tavo rce(s) Supporting Document(s) ID Date Data Source [id number] 04/18/2020 10:42:00 AM EST [facility] [address] [place] [address] PHONE: [phone] FAX: [phone] Name .................. : FERNIE Charlton Acct Number.................. : [id number] ROOM. ................. : TR-03 MR Number ................... : [id number] Stay type ............. : E/R Discharge Date......... ... : 04/15/20 Admit Date ......... : 04/15/20 Admit Phys .................... : OLAMIDE DURON Date of ....... : 1955 Family Phys ................... : CARO WILMA Phone . ................. : [phone] Age ................................ : 64 Film# .................. .:[id number] Sex ................................. : M Unsigned transcriptions are preliminary reports and do not represent a medical or legal document CHEST PORTABLE [id number] COMPLETE:04/15/20 08:31 BEM 1386 Reason(s): CVA, rt hemiplegia PORTABLE CHEST X-RAY: COMPARISON: 12/19/19 TECHNIQUE: Frontal portable view of the chest was performed. FINDINGS: Enlargement of the cardiac silhouette is once again noted. Pacemaker leads are in the right atrium and right ventricle. Pneumonic infiltrate, pneumothorax, pleural effusion or acute osseous abnormality is not seen. IMPRESSION: Cardiomegaly. No acute pathology or significant change identified. Electronically Reviewed and Signed By Sagrario Cueva MD , 04/18/20 10:42, KGG Transcribe Initials: ARACELY , Transcribe Date: 04/18/20 00:51, Dictation Date: Copy for: CARO ACOSTA via modem Copy for: EMERGENCY DEPT via modem Copy for: 710 MED REC DISCHARGED Page 1 of 1 Name Value Range Interpretation Code Description Data Tavo rce(s) Supporting Document(s) ID Date Data Source [id number] 04/17/2020 11:39:31 PM EST [facility] Name Value Range Interpretation Code Description Data Tavo rce(s) Supporting Document(s) Discharge Summary [facility] QPOFZl8gGbKOQuMr29/RSTpvRQLzb0AwSPyxNWg6OTqwWMStM7AzXMZ7hK1oPRB6YEuJNuJqUdVjDQQ7 lbm [file] [id number]/Cq Developer++S9ZJH5PXOq7XjPL+aimn5pb+xgBwPJjaViJf9YifKgsahMSpujWYHBng [file] DhAoU4Tl9aBCWPDr6+ZIaazSAuzMglGBMQJdN7CNq0EPbqRIXJRw1T ID Date Data Source [id number] 04/17/2020 09:57:08 AM [facility] MR BRAIN WITHOUT CONTRAST [id number] RES ULTInterpreted by:Elias Toney MD04/17/2020 8:20 AMMR BRAIN WITHOUT CONTRAST [id number] CLINICAL INFORMATION: right sided weaknessADDITIONAL CLINICAL INFORMATION: None. MR IMAGING OF THE BRAIN WITHOUT CONTRASTPROCEDURE: MR images were acquired using multiple sequences in multiple planes.COMPARISON: 07/24/2019FINDINGS: CEREBRAL PARENCHYMA: Multiple foci of acute infarcts in the left basal ganglia involving the left caudate nucleus as well as the left lentiform nucleus. There is also mild involvement of for left naranjo radiata. No evidence of intracranial h emorrhage is noted. Changes of chronic microvascular disease are visualized.VENTRICLES AND EXTRA-AXIAL SPACES: The ventricles, sulci and fissures are normal in size and configuration for the patient's age. No extra- axial fluid collection is present.CALVARIUM AND VISUALIZED SKULL BASE: Intact.. Normal flow voids in the major vessels including the venous sinuses.IMPRESSION: Acute infarct involving the left basal ganglia and left naranjo radiata. Changes of chronic microvascular disease are noted.Findings were discussed with Dr. Bhagat by Dr. Toney via phone at 04/17/2020 9:53 AM.END OF IMPRESSIONThis document has been electronically signed by Elias Toney MD on 04/17/2020 9:55 AM Name Value Range Interpretation Code Description Data Tavo rce(s) Supporting Document(s) ID Date Data Source [id number] 04/17/2020 08:11:04 AM [facility] Name Value Range Interpretation Code Description Data [facility] rce(s) Supporting Document(s) Bicarbonate [Moles/volume] in Serum 23 mmol/L 22-29 [facility] Chloride [Moles/volume] in Serum or Plasma 103 mmol/L 98-107 [facility] Creatinine [Mass/volume] in Serum or Plasma 1.03 mg/dL 0.70-1.20 [facility] Glucose [Mass/volume] in Serum or Plasma 101 mg/dL 70-140 [facility] Potassium [Moles/volume] in Serum or Plasma 4.4 mmol/L 3.4-5.1 [facility] Sodium [Moles/volume] in Serum or Plasma 134 mmol/L 136-145 L [facility] Urea nitrogen [Mass/volume] in Serum or Plasma 33 mg/dL 8-23 H [facility] Anion gap 3 in Serum or Plasma 9 mmol/L 8-15 [facility] Osmolality of Serum or Plasma by calculation 285 mosm/kg 275-300 [facility] Creatinine/Urea nitrogen [Mass Ratio] in Serum or Plasma 32 [facility] Calcium [Mass/volume] in Serum or Plasma 9.1 mg/dL 8.8-10.2 [facility] Glomerular filtration rate/1.73 sq M pre dicted among non-blacks [Volume Rate/Area] in Serum or Plasma by Creatinine-based formula (MDRD) 75 mL/min/1.73m2 >60 [facility] Glomerular filtration rate/1.73 sq M pre dicted among blacks [Volume Rate/Area] in Serum or Plasma by Creatinine-based formula (MDRD) 87 mL/min/1.73m2 >60 [facility] ID Date Data Source [id number] 04/16/2020 08:42:00 AM [facility] [address] [place], [place] [address] [address] RESPIRATORY CARE REPORT ==== ---------NAME------- NUMBER SEX AGE ADMIT DISC. XRAY# F/C TYPEMARTEL ADEBAYO Charlton [id number] M 64 04/15/20 04/15/20 [id number] E/R DATE OF : 1955 M/R# [id number] #: [id number] TR-03 LOCATION: [place] [id number] COMPLE TE:04/15/20 13:55 [place] [id number] PHYSICIAN: OLAMIDE DURON Name Value Range Interpretation Code Description Data Tavo rce(s) Supporting Document(s) ID Date Data Source [id number] 04/16/2020 06:06:52 AM [facility] Value Range Interpretation Code Description Data Tavo rce(s) Supporting Document(s) HIV 1+2 Ab+HIV1 p24 Ag [Presence] in Serum or Plasma by Immu noassay Non Reactive [facility] Negative for HIV-1 p24 antigenand HIV-1/ HIV-2 antibodies. Nolaboratory evidence of HIVinfection. ID Date Data Source [id number] 04/16/2020 05:58:12 AM [facility] Value Range Interpretation Code Description Data Tavo rce(s) Supporting Document(s) Bicarbonate [Moles/volume] in Serum 22 mmol/L 22-29 [facility] Chloride [Moles/volume] in Serum or Plasma 107 mmol/L 98-107 [facility] Creatinine [Mass/volume] in Serum or Plasma 0.97 mg/dL 0.70-1.20 [facility] Glucose [Mass/volume] in Serum or Plasma 95 mg/dL 70-140 [facility] Potassium [Moles/volume] in Serum or Plasma 4.4 mmol/L 3.4-5.1 [facility] Sodium [Moles/volume] in Serum or Plasma 138 mmol/L 136-145 [facility] Urea nitrogen [Mass/volume] in Serum or Plasma 30 mg/dL 8-23 H [facility] Anion gap 3 in Serum or Plasma 9 mmol/L 8-15 [facility] Osmolality of Serum or Plasma by calculation 291 mosm/kg 275-300 [facility] Creatinine/Urea nitrogen [Mass Ratio] in Serum or Plasma 31 [facility] Calcium [Mass/volume] in Serum or Plasma 9.0 mg/dL 8.8-10.2 [facility] Glomerular filtration rate/1.73 sq M pre dicted among non-blacks [Volume Rate/Area] in Serum or Plasma by Creatinine-based formula (MDRD) 86 mL/min/1.73m2 >60 [facility] Glomerular filtration rate/1.73 sq M pre dicted among blacks [Volume Rate/Area] in Serum or Plasma by Creatinine-based formula (MDRD) >60 [facility] ID Date Data Source [id number] 04/15/2020 03:17:20 PM [facility] Name Value Range Interpretation Code Description Data [facility](s) Supporting Document(s) History and Physical [facility] XRMMRb1nBcIYKfVf80/AFAvvTSXws1LsWYvoARr8SWdjRXSjX1NfQYV7wN6mGTZ2SCpNMhLhMrNwWHW3 lbm [file] [place]/3dTm6+gZ95D7PPSrUUS4bpbPbF7nG8OkLtZ1ZLRibwbBbINB82fmoJ35oi9adlB870xP8Oniq3DO j6uS6IoDARmidDWZ8/5r1MJF2KBakaCgjKxMVYAVD8 KU5CsxY0lt1WIypjltgRMAsPFnNuEwiHBu6tCXz0/F3YkvqRnY/Nvjp1cicRATjMz2GQa8be8WeGmqFv yVpN0EyWH9/JLIV9UauXC68j2C4H94+uoiJ8sbbdjqQ57H/UlhHe3mZY044/4U/X2AzzM0usLDlX1THd nmScWWCihkbmKoXvk4h9GWaypQQMCJimUdKtZ7JV1l UyuzXll4ijcQ8s3aLd8anqh8u+FHqJ0B4f6ogTER0fv4VckyAQTLqkVjV1zZ+bMrwMugH3fhdMGlQ/zu i0OcHgdnJfEoNsGlKCinzCFyVqg0gb6veauFq3lVNoK0ntA7x09Ti4gujpyi3tELPPL46Iq8fceJqQSf +bA4MPr7UIqdlKRTgRb73Qa3ekOIrRJTkAm6s0RMaa aV1BuQSCrtM0GHsib1CEskG0KZELD0tIfTOgkFGYiM49uLo00hp6O3sIsT7lAjzszYvmh01E1fciefmU qX35xaVW5FfkrFzlpWtkeTORtP0pUSc6Bnsxv6ji1L8ZnrdqFcldRwGIwemRhXb7lo9CXw041/I8npiY kizq6V7JFNxczcvu+dtoCAvgFGLJhlse41UukDUoPV Hk32vo6YS64utorV8OJ2AuA5Ue6xizFNZEE4DYbvhz0RhyQEsSOfcJM08IpKrpTilNHOKMMJFWDGADX8 JBeOj27jlD6UHyACRRrCnZZQ9IOfR1PZHnfwp4DDSneVUyYOTDfbMc/A0RhPX5CDeUC+B2sHGPsfW8pU Ybn2xzghNjx2gkNbkAfIwwQ9L+5bBOF0Tf1J9gHZB6 4E6Z7rXGIely9wCW5q8V8Ae5TS1XsvjGjCtgHS7eVilqwU+S9mbpiSboMZF8QSri3Xc4+a/m2FkZ8z+v /gGywo3ZT97mr/Jared+irDXPxOqQw5LvJE5LBufTfvWnEKq5UE376r4sHAcyfv4AgdmgY74rTqzKZO+yt 5mO57M3vjJCYReF2nogDaK0XjmsMqi6Zx5xvV7pxN9 i0qfd0uw+vfD70vif2sIqACjCrXNdVbo9ziL7QaVA9UvczmsW9f1g2P6c6LpiPiJ5kO+id4Xd8TlB17/ UgvfltUDNGqLvFLi7qlnCF+MmTDrUawPR+beouTG/IVuz2TiLShz21oOBgIkV8h2Y0TkSMIvXtKDBiB/ t8B/zC54/4W/nlok5TOrHYWpna+FNYG/jcygk02Prr IsMW2Oc33ghKeSf1a5nQ/ZuYvTJCbU2IIjB/hK22MD8+tEg9bCIBUaJdbkxoukVqw8/Blayne/pbzuxFay8N [file] oa7a/zcNKglcIFh4mcb8Q1JAtfIP4d/vLPg6THMgKSsDz3BWp2BEyo4u4b800V93t368EdFfB/Cq Developer++D7 [file] TBFwYSNqZ3X4RbNcHjVtLm5pKYAXHf8+LIykeOBriYqaJVKHVyE7NzBdHXruSBJNOn3O ID Date Data Source [id number] 04/15/2020 01:57:21 PM [facility] Name Value Range Interpretation Code Description Data Tavo e(s) Supporting Document(s) [facility] HHCKCp8rYzLXAjVsv9IeHhEwYPZxLZ1ghre1B5Q5tIElW3XimEUts5ruI7BhU0QcONPeJVDVCI1SeOXb jb2 [file] S3c4lmv4AhS0Qv2nwNE6K8etVwJztIm34Lbw7NKmf6KMNG7YxufDkVO/wz9N/YvMG/MOBILE SECURITY SPECIALIST+NzRv80/Lf2L [file] square dance caller/iFkiq455p0VmSIOhs9Z61WqandVIvaZ0O5+VlTqMNAt5TKJIeYJJhRrYNegCQbxlVljUa/jHmB9l [file] /fTNrz7/4jcfHx/hwL9n92012yTOZ2++++bLT7/9/Lydia/as+jme5MgqAo3fzm7oLomi5ii1/+X9//4af/ 9/e/++GfP/7yr//+13/9438S/C6ZZydpu/X1q/+T/8O0JovJU//OLTVx8///pXv/32h04dwLiD L7/7xZ3g4+v/+tHGTz//9Tc/tbus//stDnmJ4/r4p/ /y628+/fbLr3/z7cen//4Pr+Z+9vwer2775957hLH5/toT/tPf/A5LzgTbMpyuZ9563q7H//DVl//1Ja uvvvv4+S8+/+jnBn7u1G+14Y7/8z//6V9+/5c/vhr8f/z7x29//4c/fP+Xv/zw/R/+9uOL7//0+x/+8K pN2//0Nx9//tNH+1u1ck7w0UXdt02+f/2r/qClq8y6 Zyr6xz/+5W8X5eko0D28iu/4W/D7vVo+/BQ49d1Z1qOWG/F68aR23ADNe2HUb4j/CIowL5MWj3WZH4mT 1m6q695ogafh+rGwDNPmjvDND//kw1p5x3a++/a13sFzcrgTu+umtxE7X94+/tVba/yyrhVt04z9c9sD c4zsJQz1rf8/L5L8Nupl4UOPuJiLt/3hT3/9u4+/fP /ID18jc89UG+7r6932P/5HlrR4/5jeafo4Zn+//9Nff/jL//Uszz0PgvEqP1/TFq9t+GQ8ugaEc546Uv RX1X//5z/5HI5xDWbm/D2Lh/eP3/3sH7/7Hf/ocwn44+pplWFSe7sqLx71s8XaHBo/iH6N00gmkbStFB brx/VK3q9/+s1Pv/v4/v/94d/+49B5/vvh7ml3++15 Id5ToDnoz/mnv/fI8EsieqD6T73+4PPG/fn3/+t33//b77//04/Sp6zn+f2PmI+Uvvnzn//42efX/FGE bM4v//n8f6F7ke+yiCTS4Dvjduhqa/6l7959AxKea0+/++br//3zH3SLa1Hj/emwB36ngd4Asn/ehMjH isnt19//zy29dG8//8sH/mxTiKqB7qdQe6p5kb9DV8 6b7Soeec8dvv7gDG6/76oVW9zm6R7J6pHm78///OvffPWK+9K/Mwc7Wv8eCT4/kZ70MXygroVylFQbXX 9JZJ7va9WfGuH5ZBYau7QbHLahVVf0yZPyGOxwfbZzk2PbewhbX1Xar0MxZiKnPNZaKtBvRip6SNSjZv G8dWQhPpTlHJYxX6IcMBMiQpG7HdSiWKQIIT4ZMOWr bnQgMiAwIFI+ZpIeAH6fqwbxWMGtq1MwJScaSEabVQUxF1P9rMyiLNEqT2CpwJ13YUYhJ2HjvjA9DSD5 IDAgUiAvTGFzdCAxOSAwIFI+McWmZN7cwmmtVHCvu2JaFSlfBIU5cO8tIRdGUTTMYGgOEWlmHcB7f41n efOOLFIaHSZgVN1EcdQphNjhneBrwMRlKTE0VnXwNZ VoYTBqDmJ3MTDXGOHsRZZxJOVjYVBdC3SeuHdbPRiUDFATGWkGXTrhJcXai5S3WTAikdXDUDEARAjwLM nTL1NUXNAjBWJjYpZ5NTBqA5ZntfRabCPkYZWPYVniDmtpOQTzgK5lnQtlK5UrKAY9l7JmDO5RW8WjBM OiTCKKZKH5t3VqGXTslnozrsqhRtGfKSZpHNOiICPs YK4Pdm8bdOJaquDnEEXWKMvyEqvnIG2vmFmrlmqyF4CctQSqNSS+GaBgDU4dzz7+HaFrWVIvBjx1XKWz KTpgAZVaBTGcYSJaK5cpHYFeOfQyLQUcDhPnIQ4Nw5ZiqPLqUt9zviWaSxrWyOEuColqCTGhNIAuFZDa DhAMHSDdEYAsCBYkPOJ9LGGoUNMlTGkkMATeLAclIS gvOJBdETVkDJ6wWgFyOVGpNyU9QfpeEOAnPTWeohZWGZZpMGQ6MfwuRdMmRTQdHNEeBCkbYRIyKGAzZR UfBBF8FSN3KYWaIxIlSVEgPKXcNOEbVYAcMCNsbdCSAWLsNAViSHF8HIQkQPDlMEHcLPpvVRDvPYNxJJ beWJIqDNTpJX2wWqMyITSmZYCkONqoJTBjYUGvopDR RRRkTNHqDOPnPMIjSWJvQXSdMEnbMSOaYPIiGGNyKZEfUAJgWO4jKuKdJMUsFTH2FZQfSPEnUYJifmIY QWMrRNOsAGm7CUBeTESsTIKbCFndDYQaSSAmMPW3LHFhYBDcXS2aTiVfKFHsHFW4GzNyCBXoHPMbqmUV XSUyMWJbZCW0TgBnRYRsWLZcVZgeCEObRCDvPIboLB TnSDOiFO8oAfImIWQvJAOpOJgvYAAoCKQwqxNDIUAjJNTkSVAmGzYgGQXpKXLcOPaaKNNiJUgmGjC4VE LwTZUeZE0mIaZxPORtRSV5FVssBOAaTIJaipFOJXDaHPLtUIlkNXRmQQGdLZNaVBjcRDMkAXCpHDJ0IJ ZoFSClSC6hVxWrCNKlOBNyMUZhJmS5BwWdNcYXxPFd oUnigdk0JMqwC6n5HWXvKOuyLO9lxdRsEZFeVrqeWd7inQC2FVZaQayGEe7Fg3QehlS1glEqVhazFDY3 DlDiJN6T ID Date Data Source [id number] 04/15/2020 12:56:08 PM [facility] Name Value Range Interpretation Code Description Data Tavo e(s) Supporting Document(s) Bicarbonate [Moles/volume] in Serum 24 mmol/L 22-29 [facility] Chloride [Moles/volume] in Serum or Plasma 107 mmol/L 98-107 [facility] Creatinine [Mass/volume] in Serum or Plasma 1.02 mg/dL 0.70-1.20 [facility] Glucose [Mass/volume] in Serum or Plasma 112 mg/dL 70-140 [facility] Potassium [Moles/volume] in Serum or Plasma 4.2 mmol/L 3.4-5.1 [facility] Sodium [Moles/volume] in Serum or Plasma 135 mmol/L 136-145 L [facility] Urea nitrogen [Mass/volume] in Serum or Plasma 38 mg/dL 8-23 H [facility] Anion gap 3 in Serum or Plasma 4 mmol/L 8-15 L [facility] Osmolality of Serum or Plasma by calculation 290 mosm/kg 275-300 [facility] Creatinine/Urea nitrogen [Mass Ratio] in Serum or Plasma 37 [facility] Calcium [Mass/volume] in Serum or Plasma 9.0 mg/dL 8.8-10.2 [facility] QA FLAGS AND/OR RANGES MODIFIED BY DEMOG RAPHIC UPDATE ON 04/15 AT 1333 Glomerular filtration rate/1.73 sq M pre dicted among non-blacks [Volume Rate/Area] in Serum or Plasma by Creatinine-based formula (MDRD) >6 0 [facility] Glomerular filtration rate/1.73 sq M pre dicted among blacks [Volume Rate/Area] in Serum or Plasma by Creatinine-based formula (MDRD) >60 [facility] ID Date Data Source [id number] 04/15/2020 05:12:46 PM [facility] Name Value Range Interpretation Code Description Data Tavo rce(s) Supporting Document(s) Albumin [Mass/volume] in Serum or Plasma by Bromocresol green (BCG) dye binding method 3.7 g/dL 3.5-5.2 [facility] Bilirubin.total [Mass/volume] in Serum or Plasma 0.6 mg/dL <1.2 [facility] Bilirubin.direct [Mass/volume] in Serum or Plasma 0.2 mg/dL <0.3 [facility] Alkaline phosphatase [Enzymatic activity/volume] in Serum or Plasma 215 U/L 40-129 H [facility] Aspartate aminotransferase [Enzymatic activity/volume] in Serum or Plasma 23 U/L <40 [facility] Alanine aminotransferase [Enzymatic activity/volume] in Seru m or Plasma 30 U/L <41 [facility] Protein [Mass/volume] in Serum or Plasma 6.2 g/dL 6.4-8.3 L [facility] ID Date Data Source [id number] 04/15/2020 05:12:46 PM [facility] Name Value Range Interpretation Code Description Data Tavo rce(s) Supporting Document(s) Cholesterol [Mass/volume] in Serum or Plasma 135 mg/dL <200 [facility] Triglyceride [Mass/volume] in Serum or Plasma 49 mg/dL <150 [facility] Cholesterol in HDL [Mass/volume] in Serum or Plasma 55 mg/dL >40 [facility] Cholesterol in LDL [Mass/volume] in Serum or Plasma by calcu lation 70 mg/dL <100 [facility] Cholesterol in VLDL [Mass/volume] in Serum or Plasma by calc ulation 10 mg/dl 16-42 L [facility] Cholesterol non HDL [Mass/volume] in Serum or Plasma 80 mg/dL <130 [facility] ID Date Data Source [id number] 04/15/2020 05:12:46 PM [facility] Name Value Range Interpretation Code Description Data Tavo rce(s) Supporting Document(s) Thyrotropin [Units/volume] in Serum or Plasma 2.480 u[IU]/mL 0.270-4. 200 [facility] ID Date Data Source [id number] 04/15/2020 03:53:36 PM [facility] Name Value Range Interpretation Code Description Data Tavo rce(s) Supporting Document(s) Hemoglobin A1c/Hemoglobin.total in Blood by HPLC 5.8 % 4.0-6.0 [facility] (NOTE)<5.7% Average risk of diabetes (ADA)5.7-6.4% Increased risk of diabetes(ADA)>/= 6.5% Diagnostic for diabetes(ADA) Glucose mean value [Mass/volume] in Blood Estimated fr om glycated hemoglobin 120 mg/dL <126 [facility] ID Date Data Source [id number] 04/15/2020 08:03:00 AM [facility] 1 OrderSheet [facility] [address] [place] [address] Phone #: ext- [phone] 04/15/2020 08:03 Patient: ADEBAYO LIANG Sex: M : 1955 Age: 64yWEIGHT:87.4 kg (M) HEIGHT:69 inches (S) BMI:28.5ALLERGIES: TelticionCHIEF COMPLAINT: weakness, facial droop, walking, impaired speechDIAGNOSIS: Cerebrovascular accidentLAB ORDERSOrder Description Priority Entered Acknowledged InitialedCBC w Diff STAT 08:10 04/15/2020 08:48 Edith Patel Riccardo R.N. M.D.;CMP STAT 08:04/15/2020 08:48 Edith Patel Riccardo R.N. M.D.;Lipase STAT 08:10 04/15/2020 08:48 Edith Patel Riccardo R.N. M.D.;PT/PTT STAT 08:10 04/15/2020 08:48 Edith Patel Riccardo R.N. M.D.;Troponin-T STAT 08:10 04/15/2020 08:48 Edith Patel Riccardo R.N. M.D.;BNP STAT 08:10 04/15/2020 08:48 Edith Patel Riccardo R.N. M.D.;COVID-19 CAH (Not STAT 08:48 04/15/2020 08:57 Dmitri Patelymptomatic as Angie Quiñonez R.N.Defined by CDC) Yvan;(04/15/2020) (FirstTest) (NotHospitalized) (Not) (NotResident inCongregate CareSetting) (NotEmployed inHealthcare Setting)Urinalysis (Clean STAT 09:05 04/15/2020 09:08 Maida Patel) Angie Quiñonez R.N. 2 OrderSheet [facility] [address] [place] [address] Phone #: ext- [phone] 04/15/2020 08:03 Patient: ADEBAYO LIANG [facility]#: [id number] Sex: M : 1955 Age: 64y M.D.;DIAGNOSTIC STUDY ORDERSOrder Description Priority Entered Acknowledged InitialedChest Portable 1 STAT 08:10 04/15/2020 08:48 Edith PatelView Barbararin, Angie R.N.(Oxygen?(No)) M.D.; Reason for Study: CVA, rt hemiplegiaCT HEAD (STROKE STAT 08:11 04/15/2020 08:48 Edith PatelPROTOCOL Turrin, Angie R.N.(Oxygen?(No)) M.D.;(IV?(Yes)) Reason for Study: left hemiplegioa, aphasiaMEDICATION/IV/DRIP/FLUID ORDERSOrder Description Priority Entered Acknowledged InitialedAspirin PO 08:41 04/15/2020 08:57 Edith PatelChewable 81 mg Olamide, Angie R.N.162 mg M.D.;GENERAL ORDERSOrder Description Priority Entered Acknowledged InitialedBlood Pressure 08:10 04/15/2020 08:48 Edith PatelMonitor Olamide, Angie R.N. M.D.;Life Skills Instructor 08:10 04/15/2020 08:48 Edith Patel(continuous) Olamide, Angie R.N. M.D.;EKG 08:10 04/15/2020 08:57 Edith Patel, Agnie R.N. M.D.;NPO 08:10 04/15/2020 08:48 Edith Patel, Angie R.N. M.D.;Obtain Old EKG 08:10 04/15/2020 08:48 Edith Patel, Angie R.N. M.D.;Obtain Old Records 08:10 04/15/2020 08:48 Edith Patel, Angie R.N. M.D.;Oxygen titrate to 08:10 04/15/2020 08:48 Edith Patel92% Olamide, Angie R.N. M.D.; 3 OrderSheet [facility] [address] [place] [address] Phone #: ext- [phone] 04/15/2020 08:03 Patient: ADEBAYO LIANG Sex: M : 1955 Age: 64yPulse oximeter 08:10 04/15/2020 08:48 Edith Patel(Continuous) Angie Quiñonez R.N., M.D.;[place] 08:04/15/2020 08:48 Edith Patel Riccardo R.N. M.D.;Vitals 08:10 04/15/2020 08:48 Edith Patel Riccardo R.N. M.D.;Transfer: 09:12 04/15/2020 09:15 Olamide Ceballos Riccardo Blair M.D.;-- (Consult ER ) 09:12 04/15/2020 09:15 Olamide Ceballos Riccardo Blair M.D.;[Electronically signed by Edith Patel R.N. (09:43 04/15/2020)][Electronically signed by Angie Quiñonez M.D. (10:06 04/15/2020)][Electronically locked by Edith Patel R.N. (09:43 04/15/2020)] Name Value Range Interpretation Code Description Data Tavo rce(s) Supporting Document(s) ID Date Data Source [id number] 04/15/2020 08:03:00 AM EST [facility] 1 Medication Reconciliation Report [facility] [address] [place] [address] Phone #: ext- [phone] 04/15/2020 08:03 Patient: ADEBAYO LIANG Sex: M : 1955 Age: 64yWeight: 87.4 kgHeight/Length: 69 in.BMI: 28.5ALLERGIES: TelticionThe patient's Home Medications are listed below:THE FOLLOWING MEDICATIONS NEED TO BE RECONCILED: Allopurinol Oral (300 mg), daily Aspirin Oral (81 mg), daily Atorvastatin Calcium Oral (80 mg) 1 tablet, daily Entresto Oral (49-51 mg) 1 tablet, 2x a day Ferrous Sulfate Iron Oral 324mg , 2x a day Fluticasone Propionate Nasal (93 mcg/act) 2 spray, daily Loratadine Childrens Oral 10mg, daily Magnesium Oral (400 mg), daily Metoprolol Succinate ER Oral (25 mg) 1 tablet, daily Multi Vitamin Daily Oral Nitroglycerin Sublingual (0.4 mg), prn [place] Extract Oral 324 mg, 2x a day Plavix Oral (75 mg), daily PriLOSEC Oral (10 mg) 2 packets, daily Triple [place] [facility] Oral, 2x a day 2 Medication Reconciliation Report [facility] [address] [place] [address] Phone #: ext- [phone] 04/15/2020 08:03 Patient: ADEBAYO LIANG Sex: M : 1955 Age: 64y Vitamin c OralThe source(s) of the original Home Medication information:Not obtained.The following Medications were given to the patient in the Emergency Department:ASPIRIN CHEWABLE 81 MG [PO] PO 162 mg, administered: 08:57 04/15/2020The following Medications were prescribed to the patient:None. Name Value Range Interpretation Code Description Data Tavo rce(s) Supporting Document(s) ID Date Data Source [id number] 04/15/2020 08:03:00 AM [place] [address] Medication Administration Record [facility] [address] [place] [address] Phone #: jfa- [phone] 04/15/2020 08:03 Patient: ADEBAYO LIANG Sex: M : 1955 Age: 64yWeight: 87.4 kgHeight/Length: 69 inBMI: 28.5ALLERGIES: Telticion Date/Time Medication Administered Medication OrderedGiven ASPIRIN CHEWABLE 81 MG [PO] Aspirin PO Chewable 81 mg 29057:57 04/15/2020 Dose: 162 mg Tablets PO Edith Maguire R.N. Name Value Range Interpretation Code Description Data Tavo rce(s) Supporting Document(s) ID Date Data Source [id number] 04/15/2020 08:03:00 AM [facility] 1 General Instructions [facility] [address] [place] [address] Phone #: ext- [phone] 04/15/2020 08:03 Patient: ADEBAYO LIANG Sex: M : 1955 Age: 64yNontraumatic cerebrovascular accident- thrombotic ischemic infarct involving left middle cerebral artery.(Electronically signed by Angie Quiñonez M.D. 04/15/2020 10:06) Name Value Range Interpretation Code Description Data [facility] rce(s) Supporting Document(s) ID Date Data Source [id number] 04/15/2020 08:03:00 AM [facility] 1 Clinical Report - Nurses [facility] [address] [place], [place] [address] Phone #: ext- [phone] 04/15/2020 08:03 Patient: ADEBAYO LIANG Sex: M : 1955 Age: 64yTRIAGE Arrived by EMS. Historian: patient. Unaccompanied. ( woke up at 7am with slurred speech, facial droop, no use of right arm or leg fsbs 128). Acuity: LEVEL 2. Chief Complaint: WEAKNESS, IMPAIRED SPEECH and FACIAL DROOP. Alert. This started today 0700. Patient was last known well (22:00 04/14/2020). He has had altered mental status and difficulty with speech. Treatment BRIAR WOOD SORTER: None. stroke team: Trauma team notified: 08:10 04/15/2020. Onsite stroke team: ED physician and java tech lead. [place] STROKE SCALE: Right-sided facial droop; right arm drift; slurred speech. Time last seen normal: 22:00 04/14/2020. SEPSIS SCREEN: SIRS SCREEN NEGATIVE. SEPSIS SCREEN NEGATIVE. No suspected or confirmed signs of infection present. MADELINE COMA SCORE: 14- eyes open- spontaneous (4); best verbal response- oriented (5); best motor response- localizing (5). NIH STROKE SCALE: Score 15. Level of Consciousness: alert (0). LOC Questions: both (0). LOC Commands: one (1). Best gaze: partial gaze palsy (1). Visual field loss: none (0). Facial palsy: partial (2). Motor arm: no drift left arm (0) and no movement right arm (4). Motor leg: no drift left leg (0) and no movement right leg (4). Limb ataxia: one limb (1). Sensory loss: none (0). Aphasia: mild to moderate (1). Dysarthria: mild to moderate (1). Extinction and inattention: none (0). --08:36 04/15/20 Edith Patel R.N. 08:10 04/15/20. BP: 160/66. MAP: 97. HR: 59. RR: 18. O2 saturation: 95%. Temp: 97.1 F. Pain level now: 010. --08:36 04/15/20 Edith Patel R.N. Weight: 87.4 kg measured. Height/Length: 69 inches Per Patient. BMI: 28.5. --08:28 04/15/20 Edith Patel R.N. Medications 2 Clinical Report - Nurses [facility] [address] [place] [address] Phone #: ext- [phone] 04/15/2020 08:03 Patient: ADEBAYO LIANG Sex: M : 1955 Age: 64yAllopurinol Oral (Tablet 300 mg), daily.Aspirin Oral (Tablet Chewable 81 mg), daily.Atorvastatin Calcium Oral (Tablet 80 mg) 1 tablet, daily.Entresto Oral (Tablet 49-51 mg) 1 tablet, 2x a day.Ferrous Sulfate Iron Oral 324mg , 2x a day.Fluticasone Propionate Nasal (Exhaler Suspension 93 mcg/act) 2 spray, daily.Loratadine Childrens Oral 10mg, daily.Magnesium Oral (Capsule 400 mg), daily.Metoprolol Succinate ER Oral (Tablet Extended Release 24 Hour 25 mg) 1 tablet, daily.Multi Vitamin Daily Oral.Nitroglycerin Sublingual (Tablet Sublingual 0.4 mg), as needed.[place] Extract Oral 324 mg, 2x a day.Plavix Oral (Tablet 75 mg), daily.PriLOSEC Oral (Packet 10 mg) 2 packets, daily.Triple [place] Complex Oral, 2x a day.Vitamin c Oral. --08:12 04/15/20 Angie Quiñonez M.D.AllergiesTelticion.(hives) (cholesterol med) --08:12 04/15/20 Angie Quiñonez M.D.PROBLEMS:Dyspnea.Pneumonia.Lung Disease.URI.Hypoxia.Asthma.CVA - Cerebrovascular Accident.Hypothyroidism.Hypert ension.Heart Disease.Hypercholesterolemia.Sleep Apnea.PVD.Congestive Heart Failure.COPD - Chronic Obstructive Pulmonary Disease.Atypical Chest Pain.Gout.Coronary Artery Disease. --08:40 04/15/20 Edith Patel R.N.ADDITIONAL SURGERIES:"Watchman" filter placed Feb 2018, Stopped xarelto.Back Surgery.CABG x2 (1999 2012). 3 Clinical Report - Nurses [facility] [address] [place] [address] Phone #: ext- [phone] 04/15/2020 08:03 Patient: ADEBAYO LIANG Sex: M : 1955 Age: 64y Cardiac stents. Cardiac Surgery. Cataract Surgery. Deviated septum. Pacemaker. R groin femoral artery cleaned out.. --08:40 04/15/20 Edith Patel R.N. History PAST MEDICAL HX: Immunizations: up-to-date. SOCIAL HX: Heavy tobacco smoker- 1 pack per day. Occasional alcohol use. No drug use. He was offered HIV testing but declined and hepatitis C testing but declined. He has not traveled outside the [place] Infectious disease exposure: No infectious disease exposure. Patient is not a known carrier of tuberculosis, hepatitis, HIV, MRSA or VRE. Patient is not a known carrier of CRE. SELF HARM ASSESSMENT: Self harm assessment was performed. The patient answered "no" to the question(s) "Have you recently felt down, depressed, or hopeless?", "Do you have thoughts of harming or killing yourself?", "Do you have a plan for harming or killing yourself?", "Have you recently had thoughts about harming or killing others?", "Do you have any dangerous items in your possession?", "Have you noticed less interest or pleasure in doing things?", "Are you here because you tried to hurt yourself?" and "Have you ever tried to hurt yourself before today?". ABUSE ASSESSMENT: Abuse assessment. Abuse denied. No suspicion of abuse. No report of abuse. FALL RISK ASSESSMENT: Fall risk assessment completed. Risk factors identified include patient diagnosis of stroke and impairment of mobility. Fall interventions initiated. Patient placed on stret fatoumata. Side rails up x2. Bed in low position. Brakes on. Call light in reach of patient. Instructions given to patient including fall prevention information. Verbalizes understanding. FUNCTIONAL ASSESSMENT: Functional assessment performed: has dysphasia; mobility impairment present- this mobility impairment is a new problem. LEARNING NEEDS ASSESSMENT: A learning needs assessment was performed. The preferred method of learning is via verbal instruction. SKIN INTEGRITY ASSESSMENT: Skin integrity risk assessment completed. No skin integrity risk identified. --08:36 04/15/20 Edith Patel R.N. Interventions Identification band on patient. To treatment room. --08:36 04/15/20 Edith Patel R.N.PHYSICAL ASSESSMENT ( right sided weakness leg and arm, right facial droop, aphasic). GENERAL / NEURO / PSYCH: Awake. Oriented X 4. Alert. Expressive aphasia. Mood/affect normal. Finger-nose test abnormal. Strength is unequal. He has weakness. Sensory deficit present. Abnormal 4 Clinical Report - Nurses [facility] [address] [place] [address] Phone #: ext- [phone] 04/15/2020 08:03 Patient: ADEBAYO LIANG Sex: M : 1955 Age: 64y gait. RESPIRATORY: Breath sounds within normal limits. Respirations not labored. CVS: Cardiac rhythm: atrial pacing. Capillary refill less than 2 seconds. SKIN: Skin is warm and dry. Skin not intact. --08:42 04/15/20 Edith Patel R.N.NURSING PROGRESS NOTES 08:10 04/15/20. equipment monitor phototypesetting and pulse oximeter placed on patient. Patient gowned. Reassurance given. Patient identifiers checked. Call light placed in reach. Side rails up. Bed placed in lowest position. Brakes of bed on. Patient ready for evaluation- ED physician notified. --08:42 04/15/20 Edith Patel R.N. 08:10 04/15/20. Patient transported to CT by stretcher with monitor, nurse and tech. --08:43 04/15/20 Edith Patel R.N. 08:43 04/15/2020 Site #1 started via IV in the right forearm with an 20g angiocath, with aseptic technique and good blood return; one attempt. --08:43 04/15/20 Edith Patel R.N. 08:48 04/15/2020 Site #2 started via IV in the left forearm with an 18g angiocath, with aseptic technique and good blood return; one attempt. --08:48 04/15/20 Edith Patel R.N. EKG time: (08:50 04/15/2020). EKG was performed by a nurse and shown to the ED physician. --08:53 04/15/20 Edith Patel R.N. Patient ID band checked for patient name and birthdate: patient confirmed. COVID-19 specimen obtained by RN via nasopharyngeal swab. Labeled in the presence of the patient and sent to lab (rapied covid test). --08:57 04/15/20 Edith Patel R.N. 08:57 04/15/2020 ASPIRIN CHEWABLE 81 MG PO Tablets 162 mg given. Allergies verified and confirmed 5 rights. Information reviewed with patient including reason for taking this medication, signs of allergic reaction and precautions. Verbalizes understanding. --08:57 04/15/20 Edith Patel R.N. Pa tient ID band checked for patient name and birthdate: patient confirmed. Instructions provided to collect clean catch urine and patient verbalized understanding. Clean catch urine collected; sample sent to lab for urinalysis. Specimen labeled in the presence of the patient. --09:08 04/15/20 Edith Patel R.N. 08:15 04/15/20. BP: 165/66. MAP: 99. HR: 60. RR: 18. O2 saturation: 94%. --09:13 04/15/20 Edith Patel R.N. 08:30 04/15/20. BP: 93/79. MAP: 83. HR: 60. RR: 18. O2 saturation: 95%. --09:20 04/15/20 Edith Patel R.N. 08:45 04/15/20. BP: 149/66. MAP: 93. HR: 60. RR: 19. O2 saturation: 92%. --09:21 04/15/20 Edith Patel R.N. 5 Clinical Report - Nurses [facility] [address] [place] [address] Phone #: ext- [phone] 04/15/2020 08:03 Patient: ADEBAYO LIANG Sex: M : 1955 Age: 64y late entry - 09:00 04/15/20. ( no change in pt condition resting at present). --09:22 04/15/20 Edith Patel R.N. 09:00 04/15/20. BP: 153/72. MAP: 99. HR: 60. RR: 20. O2 saturation: 95%. --09:22 04/15/20 Edith Patel R.N. 09:15 04/15/20. BP: 160/63. MAP: 95. HR: 60. RR: 18. O2 saturation: 95%. --09:26 04/15/20 Edith Patel R.N.DISPOSITION / DISCHARGE Report was given to a nurse via a phone call. Report included information regarding patient's treatment, allergies and condition including: recent changes, abnormal vital signs and abnormal labs. Report included treatment information regarding medications given or pending. All questions were answered. Report was acknowledged and care was transferred. ([place]). Bed obtained and ready. --09:19 04/15/20 Edith Patel R.N. 09:37 04/15/20. BP: 149/72. MAP: 97. HR: 60. RR: 17. O2 saturation: 95%. Temp: 97.8 F. Pain level now: 0/10. --09:38 04/15/20 Edith Patel R.N. Transferred to [facility]. Summary of care (CCDA) and [place] forms provided to transport team and transfer facility via paper. 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 Patient's personal items include, shirt. --09:43 04/15/20 Edith Patel R.N.Locked/Released at 04/15/2020 09:43 by Edith Patel R.N. Name Value Range Interpretation Code Description Data Tavo rce(s) Supporting Document(s) ID Date Data Source [id number] 04/15/2020 08:03:00 AM [facility] 1 Clinical Report - Physicians/Mid Levels [facility] [address] [place] [address] Phone #: ext- [phone] 04/15/2020 08:03 Patient: ADEBAYO LIANG Sex: M : 1955 Age: 64y Time Seen: 08:07 04/15/2020; initial patient contact. Arrived- By ambulance. Historian- patient and EMS personnel. Disposition decision: 09:10 04/15/2020.HISTORY OF PRESENT ILLNESS Chief Complaint: WEAKNESS, FACIAL DROOP, DIFFICULTY WALKING and IMPAIRED SPEECH. This started today woke up with symptoms at 7 am, patient was last known well (22:30 04/14/2020) and is still present. It was gradual in onset and has been constant. The patient has had weakness. No numbness, tingling, visual disturbance, impaired swallowing or recent fall. He has had difficulty with speech. He has had difficulty walking. At its maximum deficit described as severe. When seen in the E.D., described as severe. No dizziness, altered mental status, seizure or blackouts. Usually is alert and oriented X3. (BS was 128 on scene per EMS). Similar symptoms previously. Patient has had similar symptoms once. Worse from previously. ( had CVA in 08-29). Recent medical care: Not recently seen/assessed.REVIEW OF SYSTEMSNo fever, head injury, chest pain, difficulty breathing or cough. No sputum production, sore throat,abdominal pain, nausea or diarrhea. No black stools, difficulty with urination, skin rash, enlarged lymphnodes or joint pain. No vomiting, bloody stools or back pain. The patient has had a mild globalheadache. All other systems reviewed and are negative.PAST HISTORYSee nurses notes. Problems: Asthma. CVA - Cerebrovascular Accident. Hypothyroidism. Hypertension. Heart Disease. Hypercholesterolemia. Sleep Apnea. PVD. Congestive Heart Failure. COPD - Chronic Obstructive Pulmonary Disease. Atypical Chest Pain. 2 Clinical Report - Physicians/Mid Levels [facility] [address] [place] [address] Phone #: ext- [phone] 04/15/2020 08:03 [id number] Sex[facility] M : 1955 Age: 64y Gout. Coronary Artery Disease. Additional Surgeries: Back Surgery. CABG x2. (1999 2012) Cardiac stents. Cataract Surgery. Pacemaker. Medications: Allopurino l Oral (Tablet 300 mg), daily. Aspirin Oral (Tablet Chewable 81 mg), daily. Atorvastatin Calcium Oral (Tablet 80 mg) 1 tablet, daily. Entresto Oral (Tablet 49-51 mg) 1 tablet, 2x a day. Ferrous Sulfate Iron Oral 324mg , 2x a day. Fluticasone Propionate Nasal (Exhaler Suspension 93 mcg/act) 2 spray, daily. Loratadine Childrens Oral 10mg, daily. Magnesium Oral (Capsule 400 mg), daily. Metoprolol Succinate ER Oral (Tablet Extended Release 24 Hour 25 mg) 1 tablet, daily. Multi Vitamin Daily Oral. Nitroglycerin Sublingual (Tablet Sublingual 0.4 mg), as needed. [place] Extract Oral 324 mg, 2x a day. Plavix Oral (Tablet 75 mg), daily. PriLOSEC Oral (Packet 10 mg) 2 packets, daily. Triple [place] Complex Oral, 2x a day. Vitamin c Oral. Allergies: Telticion.(hives) (cholesterol med).SOCIAL HISTORYHeavy tobacco smoker- 1 pack per day. Occasional alcohol use. No drug use.ADDITIONAL NOTESThe nursing notes have been reviewed with agreement regarding the chief complaint, HPI, ROS, PMH andpatient medications and allergies.PHYSICAL EXAMVital Signs: 04/15/2020 08:10 BP: 160/66. MAP: 97. HR: 59. RR: 18. O2 saturation: 95%. Temp: 97.1 F.Pain level now: 0/10. Have been reviewed. Oxygen saturation normal.Appearance: Alert. No acute distress.Head: Head atraumatic.Eyes: Pupils equal, round and reactive to light.ENT: Normal ENT inspection. Airway intact. Pharynx normal. 3 Clinical Report - Physicians/Mid Levels [facility] [address] [place] [address] Phone #: ext- [phone] 04/15/2020 08:03 Patient: ADEBAYO LIANG Sex: M : 1955 Age: 64y Neck: Normal inspection. Neck supple. CVS: Normal heart rate and rhythm. Heart sounds normal. Pulses normal. Respiratory: No respiratory distress. Painless inspiration. Breath sounds normal. Abdomen: Soft and nontender. No organomegaly. Back: Normal inspection. Skin: Skin warm and dry. Normal skin color. No rash. Normal skin turgor. Extremities: No lower extremity edema. Neuro: Alert. Oriented X 3. Expressive aphasia. Mood/affect normal. Moderate left-sided facial weakness with sparing of forehead. He has localized weakness of the right arm (1/5 muscle flicker but no movement), left face (moderate) and left leg (2/5 movement possible but not against gravity). No sensory deficit. Reflex exam: DTRs otherwise normal. No clonus present. NIH Stroke Scale: score 11. Level of Consciousness: alert (0). LOC Questions: both (0). LOC Commands: both (0). Best gaze: normal (0). Visual field loss: none (0). Facial palsy: partial (2). Motor arm: no movement right arm (4). Motor leg: no movement right leg (4). Limb ataxia: none (0). Sensory loss: none (0). Aphasia: mild to moderate (1). Dysarthria: normal (0). Extinction and inattention: none (0).LABS, X-RAYS, AND EKGEKG: No acute process. No acute ischemia. Atrial paced rhythm (60/min). Normal ST and T waves.EKG unchanged when compared with prior EKG. (06-28-19). The study has been interpretedcontemporaneously by me. The EKG appears to be a good tracing. Interpretation time: 08:.Chest X-ray: No acute disease. Mild cardiomegaly. No evidence of vascular congestion. Views: AP(portable). The X-rays were interpreted by the radiologist. Interpretation time: 09:05 04/15/2020.CT Head: Normal study. No acute changes. Head CT performed without contrast. The study wasinterpreted by the radiologist. Interpretation time: 08:22 04/15/2020.Laboratory Tests: Laboratory tests have been ordered, with results reviewed and considered in themedical decision making process. Urinalysis: (BRETT: 04/15/2020 09:05) ( MsgRcvd 04/15/2020 09:21) Final results Test Result Flag Units (Reference) URINALYSIS URINALYSIS SOURCE R COLOR yellow (NORMAL: Yello SPEC GRAVITY 1.015 (1.001 - 1.030 pH 5 (5 - 9) GLUCOSE NORM (NORMAL: Negat BILIRUBIN NEG (NORMAL: Negat KETONE NEG (NORMAL: Negat PROTEIN 100 A (NORMAL: Negat NITRITE NEG (NORMAL: Negat BLOOD NEG (NORMAL: Negat LEUK EST NEG (NORMAL: Negat UROBILINOGEN NOR (less than 1.0 MICROSCOPIC See Below EPITHELIAL FEW (NORMAL: NONE BACTERIA Trace (NORMAL: NONE COVID-19 CAH: (BRETT: 04/15/2020 08:54) ( MsgRcvd 04/15/2020 09:56) Final results 4 Clinical Report - Physicians/Mid Levels [facility] [address] [place] [address] Phone #: ext- [phone] 04/15/2020 08:03 Patient: ADEBAYO LIANG Sex: M : 1955 Age: 64y Test Result Flag Units (Reference) COVID-19 NOT DETECTED COVID-19 REENTER NOT DETECTED { PROCEDURAL CONTROL VALID KIT LOT # [id number] 04/15/20.CM . . . KIT EXP DATE _01/19/20 04/15/20.CM . . . NORMAL RANGE IS NOT DETECTEDNEGATIVE RESULTSSHOULD BE TREATED PREUMPTIVE AND, IF INCONSISTENT WITHCLINICAL SIGNS AND SYMPTOMS OR NECESSARY FOR PATIENTMANAGEMENT, SHOULD BETESTED WITH DIFFERENT AUTHORIZED OR CLEARED MOLECULAR TESTS. NEGATIVE RESULTSDO NOT [id number] INFECTION AND SHOULD NOT BE USED THE SOLE BASISFOR PATIENT MANAGEMENT DECISIONS.CT HEAD(STROKE PROTOCOL) W/O CONTRAST: (BRETT: 04/15/2020 08:11) ( MsgRcvd 07/2020 09:16) InProgress Test Result Flag Units (Reference) CT HEAD(STROKE PROTOCOL) W/O CONTRAST [address] [address] PHONE: [phone] FAX: [phone] -- Name .................. : FERNIE Charlton Acct Number.................. : [id number] ROOM. ................. : TR-03 MR Number ................... : [id number] Stay type ............. : E/R Discharge Date......... ... : Admit Date ......... : 04/15/20 Admit Phys .................... : OLAMIDE DURON Date of ....... : 1955 Family Phys ................... : CARO WILMA Phone .................. : [phone] Age ................................ : 64 Film# .................. .:[id number] Sex ................................. : M -- Unsigned transcriptions are preliminary reports and do not represent a medical or legal document CT HEAD(STROKE PROTOCOL) W/O [id number] COMPLETE:04/15/20 08:11 1387 Reason(s): left hemiplegio a, aphasia -- -- -- -- CT SCAN OF THE HEAD WITHOUT IV CONTRAST, 04/15/20: -- INDICATION: Left hemiplegia and aphasia. -- -- FINDINGS: The ventricular system is normal. -- No evidence for parenchymal loss is noted. No evidence for masses or mass effects are identified. No evidence for subdural, epidural, or subarachnoid hemorrhage is noted. The bones and soft tissues also appear normal. -- -- IMPRESSION: Unremarkable CT scan of the head without intravenous contrast. -- While performing the above CT examination, radiation dose reduction was accomplished utilizing automated exposure control, adjusting of the mA and kV based on the patient's body size and/or the use of imperative reconstructive techniques. -- CT dose 854.4 mGycm. -- Examination dictated by MARY Wells. Examination was reviewed with Sagrario Cueva MD, radiologist at the time of this dictation. -- -- -- 5 Clinical Report - Physicians/[facility] Emergency Department [address] [place] [address] Phone #: ext- [phone] 04/15/2020 08:03 Patient: ADEBAYO LIANG Sex: M : 1955 Age: 64y Electronically Reviewed and Signed By DCTKIM NOLASCO KGG -- Transcribe Initials: SSR, Transcribe Date: 04/15/20 09:09, Dictation Date: -- -- <<REPDIST>> -- Page 1of 1 --CBC w Diff: (BRETT: 04/15/2020 08:22) ( MsgRcvd 04/15/2020 08:36 ) Final results Test Result Flag Units (Reference) CBC W/AUTOMATED DIFF COMPLETE BLOOD COUNT WBC 6.9 10/uL (4.2 - 11.0) RBC 4.17 L 10/uL (4.50 - 6.30) HEMOGLOBIN 13.5 L g/dL (14.0 - 16.0) HEMATOCRIT 40.6 L % (41.0 - 51.0) MCV 97.4 H fL (80.0 - 94.0) MCH 32.4 pg (27.0 - 34.0) MCHC 33.3 g/dL (31.0 - 36.0) RDW 15.9 H % (11.5 - 14.8) PLATELETS 155 10/uL (150 - 450) MPV 10.6 H fL (7.4 - 10.4) NEUT 80.1 H % (37.0 - 80.0) LYMPH 12.3 L % (25.0 - 40.0) MONO 5.5 % (3.0 - 8.0) EOS 1.5 % (0.0 - 7.0) BASO 0.3 % (0.0 - 2.0) %IG 0.3 H % (0.0 - 0.0) %NRBC 0.0 % (0.0 - 0.0) #NEUT 5.49 10/uL (2.00 - 6.90) #LYMPH 0.84 10/uL (0.60 - 3.40) #MONO 0.38 10/uL (0.00 - 0.90) #EOS 0.10 10/uL (0.00 - 0.70) #BASO 0.02 10/uL (0.00 - 0.20) #IG 0.02 10/uL (0.00 - 0.10) #NRBC 0.00 10/uL (0.00 - 0.00) MANUAL DIFF NOT INDICATED RBC MORPH NOT INDICATEDCMP: (BRETT: 04/15/2020 08:22) ( MsgRcvd 04/15/2020 08:48) Final results Test Result Flag Units (Reference) COMPREHENSIVE METABOLIC PANEL COMPREHENSIVE METABOLIC PANEL SODIUM 142 mEq/L (134 - 153) POTASSIUM 4.6 mEq/L (3.6 - 5.0) CHLORIDE 108 H mEq/L (98 - 107) CO2 25 MEQ/L (22 - 30) GLUCOSE 128 H MG/DL (65 - 110) BUN 43 H MG/DL (7 - 21) CREATININE 1.2 MG/DL (0.7 - 1.5) BUN/CREAT 36 H (8 - 27) TOTAL PROTEIN 6.8 G/DL (6.3 - 8.2) ALBUMIN 3.9 G/DL (3.9 - 5.0) GLOBULIN 2.9 GM/DL (2.4 - 3.2) A/G RATIO 1.3 (0.8 - 2.0) 6 Clinical Report - Physicians/Mid Levels [facility] [address] [place] [address] Phone #: ext- [phone] 04/15/2020 08:03 Patient: ADEBAYO LIANG Sex: M : 1955 Age: 64y CALCIUM 9.5 MG/DL (8.4 - 10.2) TOTAL BILI <0.7 MG/DL (0.2 - 1.3) ALKALINE PHOS 227 H U/L (38 - 126) SGOT/AST 25 U/L (5 - 40) SGPT/ALT 34 U/L (7 - 56) ANION GAP 9.0 mmol/L (8.0 - 16.0) AGE 64 yrs NON-AA GFR >60 mL/min AFR AMER GFR >60 mL/min Male GFR Interprentation 20-49 yrs >60 mL/min Normal 50-59 yrs >56 mL/min Normal 60-69 yrs >49 mL/min Normal 70-79yrs >42 mL/min Normal 80 and above >35 mL/min Normal Female GFR Interpretation 20-39 yrs >60 mL/min Normal 40-49 yrs >58 mL/min Normal 50-59 yrs >51 mL/min Normal 60-69 yrs >45 mL/min Normal 70-79 yrs >39 mL/min Normal 80 and above >32 mL/min Normal Lipase: (BRETT: 04/15/2020 08:22) ( MsgRcvd 04/15/2020 08:47) Final results Test Result Flag Units (Reference) LIPASE 34 U/L (13 - 60) PT/PTT: (BRETT: 04/15/2020 08:22) ( MsgRcvd 04/15/2020 08:36) Final results Test Result Flag Units (Reference) PROTIME 13.6 SECONDS (11.0 - 15.5) INR 0.99 (0.93 - 1.23) PTT 28.2 SECONDS (24.8 - 36.7) \\BLDo\\INR INTERPRETATION\\BLDx\\ Therapeutic range for Coumadin and related oral anticoagulants. -International Normalized Ratio (INR): 2.0 - 3.0 for Venous Thrombosis, Pulmonary Embolus, Tissue heart valves, Acute NH Atrial Fibrillation, Valvular heart disease and recurrent Systemic Embolism. -International Normalized Ratio (INR): 2.5 - 3.5 for Mechanical Prosthetic valve. Troponin-T: (BRETT: 04/15/2020 08:22) ( [facility] 04/15/2020 08:54) Final results Test Result Flag Units (Reference) TROPONIN T 0.01 NG/ML (0.00 - 0.10) TROPONIN T0.1 ng/ml Recommended as the clinical threshold value forTroponin T. BNP: (BRETT: 04/15/2020 08:22) ( [facility] 04/15/2020 08:48) Final results Test Result Flag Units (Reference) BNP 2709 H PG/ML (0 - 125) Chest Portable 1 View: (BRETT: 04/15/2020 08:10) ( [facility] 04/15/2020 08:31) In Progress CHEST PORTABLE Reason(s): CVA, rt hemiplegia TRANSPORTATION: P IV? O2? Oxygen?(No) Room: ED.PROGRESS AND PROCEDURESCourse of Care: 08:42 04/15/20. CT head negative and pt not improved w expressive aphasia and rt sidedhemiplegia; pt's last know well was last night at 10:30 pm so not candidate for TPA; will attempt to transfer 7 Clinical Report - Physicians/Mid Levels [facility] Emergency Department [address] [place] [address] Phone #: [phone] 04/15/2020 08:03 Patient: ADEBAYO LIANG Sex: M : 1955 Age: 64[facility] 09:08 04/15/20. [facility] contacted and spoke to ER , Dr. Grey, who accepts pt for transfer 09:10 04/15/20. workup all in and reviewed 10:05 04/15/20. pt just left for [facility], still has same Sx's but stable. Critical care performed (60 minutes). Time is exclusive of separately billable procedures. Time includes: direct patient care, patient reassessment, coordination of patient care, interpretation of data (laboratory data, chest xrays and prior electrocardiograms), medical consultation and documentation of patient care- see progress notes. Patient counseled in person regarding the patient's stable condition, test results, diagnosis and need for transfer. Patient agrees with plan of care. Disposition: Benefits, risks and alternatives to transfer explained to patient. Transferred to [facility]. Summary of care (CCDA) provided to transport team, patient and transfer facility via paper. Condition: stable.CLINICAL IMPRESSION Nontraumatic cerebrovascular accident- thrombotic ischemic infarct involving left middle cerebral kaylah ry.(Electronically signed by Angie Quiñonez M.D. 04/15/2020 10:06) Name Value Range Interpretation Code Description Data Tavo rce(s) Supporting Document(s) ID Date Data Source [id number] 04/15/2020 09:05:00 AM EST MED[facility] (Jon Elizondo MD) Name Value Range Interpretation Code Description Data Tavo rce(s) Supporting Document(s) Laboratory test finding (navigational concept) Laboratory test result MEDALLAN (Jon Elizondo MD) SOURCE: Clean Catch Laboratory test finding (navigational concept) Laboratory test result MAYRAENT (Jon Elizondo MD) SOURCE: Clean Catch Laboratory test finding (navigational concept) Laboratory test result [facility] (Jon Elizondo MD) SOURCE: Clean Catch Laboratory test finding (navigational concept) 5 5-9 [facility] (Jon Elizondo MD) SOURCE: Clean Catch Laboratory test finding (navigational concept) 1.015 1.001-1.030 [facility] (Jon Elizondo MD) SOURCE: Clean Catch Laboratory test finding (navigational concept) Laboratory test result MEDENT (Jon Elizondo MD) SOURCE: Clean Catch Laboratory test finding (navigational concept) Laboratory test result [facility] (Jon Elizondo MD) SOURCE: Clean Catch Laboratory test finding (navigational concept) Laboratory test result [facility] (Jon Elizondo MD) SOURCE: Clean Catch Laboratory test finding (navigational concept) 100 Abnormal (applies to non- numeric results) [facility] (Jon Elizondo MD) SOURCE: Clean Catch Laboratory test finding (navigational concept) Laboratory test result [facility] (Jon Elizondo MD) SOURCE: Clean Catch Laboratory test finding (navigational concept) Laboratory test result [facility] (Jon Elizondo MD) SOURCE: Clean Catch Laboratory test finding (navigational concept) Laboratory test result MED[facility] (Jon Elizondo MD) SOURCE: Clean Catch Laboratory test finding (navigational concept) Laboratory test result [facility] (Jon Elizondo MD) SOURCE: Clean Catch Laboratory test finding (navigational concept) Laboratory test result [facility] (Jon Elizondo MD) SOURCE: Clean Catch Laboratory test finding (navigational concept) Laboratory test result [facility] (Jon Elizondo MD) SOURCE: Clean Catch Laboratory test finding (navigational concept) Laboratory test result [facility] (Jon Elizondo MD) SOURCE: Clean Catch ID Date Data Source [id number] 04/15/2020 09:20:00 AM EST [facility] Name Value Range Interpretation Code Description Data Tavo rce(s) Supporting Document(s) URINALYSIS [facility] URINALYSIS SOURCE R [facility] COLOR yellow NORMAL: Yellow [facility] Specific gravity of Urine by Test strip 1.015 1.001 - 1.030 [facility] pH 5 5 - 9 [facility] Glucose [Mass/volume] in Urine by Test strip NORM NORMAL: Negat natasha [facility] Bilirubin.total [Presence] in Urine by Test strip NEG NORMAL: Negative [facility] Ketones [Presence] in Urine by Test strip NEG NORMAL: Negative [facility] Protein [Mass/volume] in Urine by Test strip 100 NORMAL: Negat natasha A [facility] Nitrite [Presence] in Urine by Test strip NEG NORMAL: Negative [facility] BLOOD NEG NORMAL: Negative [facility] Leukocyte esterase [Presence] in Urine by Test strip NEG CHI L: Negative [facility] Urobilinogen [Mass/volume] in Urine by Test strip NOR less darren n 1.0 mg/dL [facility] MICROSCOPIC See Below [facility] ital EPITHELIAL FEW NORMAL: NONE SEEN [facility] Bacteria [Presence] in Urine sediment by Light microscopy Tr abby NORMAL: NONE SEEN [facility] ID Date Data Source [id number] 04/15/2020 08:54:00 AM EST [facility] (Jon Elizondo MD) Name Value Range Interpretation Code Description Data Tavo rce(s) Supporting Document(s) Laboratory test finding (navigational concept) Laboratory test result [facility] (Jon Elizondo MD) First test?: Y~Employed in healthcare?: N~Symptomatic as defined by CDC?: N~Hospitalized?: N Laboratory test finding (navigational concept) Laboratory test result [facility] (Jon Elizondo MD) First test?: Y~Employed in healthcare?: N~Symptomatic as defined by CDC?: N~Hospitalized?: N ID Date Data Source [id number] 04/15/2020 08:54:00 AM EST [facility] Name Value Range Interpretation Code Description Data Tavo rce(s) Supporting Document(s) COVID-19 [facility] This lab was ordered by [facility] and reported by [facility]. ID Date Data Source [id number] 04/15/2020 08:54:00 AM EST [facility] Name Value Range Interpretation Code Description Data Tavo rce(s) Supporting Document(s) COVID-19 [facility] This lab was ordered by [facility] and reported by [facility]. ID Date Data Source [id number] 04/15/2020 09:55:00 AM EST [facility] Name Value Range Interpretation Code Description Data Tavo rce(s) Supporting Document(s) COVID-19 NOT DETECTED [facility] COVID-19 REENTER NOT DETECTED [facility] { PROCEDURAL CONTROL VALID KIT LOT # _[id number] 04/15/20.CM . . . KIT EXP DATE _01/19/20 04/15/20.CM . . . NORMAL RANGE IS NOT DETECTEDNEGATIVE RESULTS SHOULD BE TREATED PREUMPTIVE AND, IF INCONSISTENT WITHCLINICAL SIGNS AND SYMPTOMS OR NECESSARY FOR PATIENT MANAGEMENT, SHOULD BETESTED WITH DIFFERENT AUTHORIZED OR CLEARED MOLECULAR TESTS. NEGATIVE RESULTSDO NOT PRECLUDE SARS-CoV-2 INFECTION AND SHOULD NOT BE USED THE SOLE BASISFOR PATIENT MANAGEMENT DECISIONS. ID Date Data Source [id number] 04/15/2020 08:22:00 AM EST [facility] (Jon Elizondo MD) Name Value Range Interpretation Code Description Data Tavo rce(s) Supporting Document(s) Lipoprotein lipase [Enzymatic activity/volume] in Serum or Plasm a 34 U/L 13-60 [facility] (Jon Elizondo MD) Natriuretic peptide.B prohormone N-Terminal [Mass/volu me] in Serum or Plasma 2709 pg/mL 0-125 Above high normal [facility] (Jon Elizondo MD) ID Date Data Source [id number] 04/15/2020 08:22:00 AM EST [facility] (Jon Elizondo MD) Name Value Range Interpretation Code Description Data Tavo rce(s) Supporting Document(s) Laboratory test finding (navigational concept) 6.9 10^3/uL 4.2-11.0 [facility] (Jon Elizondo MD) Laboratory test finding (navigational concept) Laboratory test result [facility] (Jon Elizondo MD) COMPLETE BLOOD COUNT Laboratory test finding (navigational concept) 4.17 10^6/uL 4 .50-6.30 Below low normal [facility] (Jon Elizondo MD) Laboratory test finding (navigational concept) 13.5 g/dL 1 4.0-16.0 Below low normal [facility] (Jon Elizondo MD) Laboratory test finding (navigational concept) 40.6 % 4 1.0-51.0 Below low normal [facility] (Jon Elizondo MD) Laboratory test finding (navigational concept) 32.4 pg 27.0-34.0 [facility] (Jon Elizondo MD) Laboratory test finding (navigational concept) 97.4 fL 8 0.0-94.0 Above high normal [facility] (Jon Elizondo MD) Laboratory test finding (navigational concept) 33.3 g/dL 31.0-36.0 [facility] (Jon Elizondo MD) Laboratory test finding (navigational concept) 155 10^3/uL 150-450 [facility] (Jon Elizondo MD) Laboratory test finding (navigational concept) 15.9 % 1 1.5-14.8 Above high normal [facility] (Jon Elizondo MD) Laboratory test finding (navigational concept) 10.6 fL 7 .4-10.4 Above high normal [facility] (Jon Elizondo MD) Laboratory test finding (navigational concept) 12.3 % 2 5.0-40.0 Below low normal [facility] (Jon Elizondo MD) Laboratory test finding (navigational concept) 80.1 % 3 7.0-80.0 Above high normal [facility] (Jon Elizondo MD) Laboratory test finding (navigational concept) 5.5 % 3.0-8.0 [facility] (Jon Elizondo MD) Laboratory test finding (navigational concept) 0.3 % 0.0-2.0 [facility] (Jon Elizondo MD) Laboratory test finding (navigational concept) 1.5 % 0.0-7.0 [facility] (Jon Elizondo MD) Laboratory test finding (navigational concept) 0.3 % 0.0-0.0 Above high normal [facility] (Jon Elizondo MD) Laboratory test finding (navigational concept) 0.0 % 0.0-0.0 [facility] (Jon Elizondo MD) Laboratory test finding (navigational concept) 5.49 10^3/uL 2.00-6.90 [facility] (Jon Elizondo MD) Laboratory test finding (navigational concept) 0.38 10^3/uL 0.00-0.90 [facility] (Jon Elizondo MD) Laboratory test finding (navigational concept) 0.84 10^3/uL 0.60-3.40 [facility] (Jon Elizondo MD) Laboratory test finding (navigational concept) 0.10 10^3/uL 0.00-0.70 [facility] (Jon Elizondo MD) Laboratory test finding (navigational concept) 0.02 10^3/uL 0.00-0.10 [facility] (Jon Elizondo MD) Laboratory test finding (navigational concept) 0.02 10^3/uL 0.00-0.20 [facility] (Jon Elizondo MD) Laboratory test finding (navigational concept) 0.00 10^3/uL 0.00-0.00 [facility] (Jon Elizondo MD) Laboratory test finding (navigational concept) Laboratory test result [facility] (Jon Elizondo MD) Laboratory test finding (navigational concept) Laboratory test result [facility] (Jon Elizondo MD) ID Date Data Source [id number] 04/15/2020 08:22:00 AM EST MEDALLAN (Jon Elizondo MD) Name Value Range Interpretation Code Description Data Tavo rce(s) Supporting Document(s) Laboratory test finding (navigational concept) 13.6 s 11.0-15.5 [facility] (Jon Elizondo MD) Laboratory test finding (navigational concept) 28.2 s 24.8-36.7 MEDALLAN (Jon Elizondo MD) \\BLDo\\INR INTERPRETATION\\BLDx\\ Therapeutic range for Coumadin and related oral anticoagulants. -International Normalized Ratio (INR): 2 .0 - 3.0 for Venous Thrombosis, Pulmonary Embolus, Tissue heart valves, Acute NH Atrial Fibrillation, Valvular heart disease and recurrent Systemic Embolism. -International Normalized Ratio (INR): 2 .5 - 3.5 for Mechanical Prosthetic valve. Laboratory test finding (navigational concept) 0.99 0.93-1.23 MEDALLAN (Jon Elizondo MD) ID Date Data Source [id number] 04/15/2020 08:54:00 AM EST [facility] Name Value Range Interpretation Code Description Data Tavo rce(s) Supporting Document(s) TROPONIN T 0.01 NG/ML 0.00 - 0.10 [facility] spital TROPONIN T0.1 ng/ml Recommended as the c linical threshold value forTroponin T. ID Date Data Source [id number] 04/15/2020 08:48:00 AM [facility] Name Value Range Interpretation Code Description Data Atvo rce(s) Supporting Document(s) BNP 2709 PG/ML 0 - 125 [facility] ID Date Data Source [id number] 04/15/2020 08:48:00 AM [facility] Name Value Range Interpretation Code Description Data Tavo rce(s) Supporting Document(s) COMPREHENSIVE METABOLIC PANEL [facility] COMPREHENSIVE METABOLIC PANEL Sodium [Moles/volume] in Serum or Plasma 142 mEq/L 134 - 153 [facility] Potassium [Moles/volume] in Serum or Plasma 4.6 mEq/L 3.6 - 5.0 [facility] Chloride [Moles/volume] in Serum or Plasma 108 mEq/L 98 - 107 H [facility] Carbon dioxide, total [Moles/volume] in Serum or Plasma 25 MEQ/L 22 - 30 [facility] Glucose [Mass/volume] in Serum or Plasma 128 MG/DL 65 - 110 H [facility] BUN 43 MG/DL 7 - 21 H [facility] al Creatinine [Mass/volume] in Serum or Plasma 1.2 MG/DL 0.7 - 1.5 [facility] BUN/CREAT 36 8 - 27 H [facility] Protein [Mass/volume] in Serum or Plasma 6.8 G/DL 6.3 - 8.2 [facility] Albumin [Mass/volume] in Serum or Plasma 3.9 G/DL 3.9 - 5.0 [facility] Globulin [Mass/volume] in Serum by calculation 2.9 GM/DL 2.4 - 3.2 [facility] A/G RATIO 1.3 0.8 - 2.0 [facility] Calcium [Mass/volume] in Serum or Plasma 9.5 MG/DL 8.4 - 10.2 [facility] Bilirubin.total [Mass/volume] in Serum or Plasma <0.7 MG/DL 0.2 - 1.3 [facility] Alkaline phosphatase [Enzymatic activity/volume] in Serum or Plasma 227 U/L 38 - 126 H [facility] Aspartate aminotransferase [Enzymatic activity/volume] in Serum or Plasma 25 U/L 5 - 40 [facility] Alanine aminotransferase [Enzymatic activity/volume] in Seru m or Plasma 34 U/L 7 - 56 [facility] Anion gap 3 in Serum or Plasma 9.0 mmol/L 8.0 - 16.0 [facility] AGE 64 yrs [facility] NON-AA GFR >60 mL/min [facility] AFR AMER GFR >60 mL/min [facility] Male GFR In terprentation 20-49 yrs >60 mL/min Normal 50-59 yrs >56 mL/min Normal 60-69 yrs >49 mL/min Normal 70-79yrs >42 mL/min Normal 80 and above >35 mL/min Normal Female GFR Interpretation 20-39 yrs >60 mL/min Normal 40-49 yrs >58 mL/min Normal 50-59 yrs >51 mL/min Normal 60-69 yrs >45 mL/min Normal 70-79 yrs >39 mL/min Normal 80 and above >32 mL/min Normal ID Date Data Source [id number] 04/15/2020 08:47:00 AM EST [facility] Name Value Range Interpretation Code Description Data Tavo rce(s) Supporting Document(s) Lipase [Enzymatic activity/volume] in Serum or Plasma 34 U/L 13 - 60 [facility] ID Date Data Source [id number] 04/15/2020 08:36:00 AM [facility] Name Value Range Interpretation Code Description Data Tavo rce(s) Supporting Document(s) CBC W/AUTOMATED DIFF [facility] COMPLETE BLOOD COUNT Leukocytes [#/volume] in Blood by Automated count 6.9 10^3/uL 4.2 - 1 1.0 [facility] Erythrocytes [#/volume] in Blood by Automated count 4.17 10^6/uL 4. 50 - 6.30 L [facility] Hemoglobin [Mass/volume] in Blood 13.5 g/dL 14.0 - 16.0 L [facility] Hematocrit [Volume Fraction] of Blood by Automated count 40.6 % 4 1.0 - 51.0 L [facility] Erythrocyte mean corpuscular volume [Entitic volume] by Auto mated count 97.4 fL 80.0 - 94.0 H [facility] Erythrocyte mean corpuscular hemoglobin [Entitic mass] by Automated count 32.4 pg 27.0 - 34.0 [facility] Erythrocyte mean corpuscular hemoglobin concentration [Mass/volume] by Automated count 33.3 g/dL 31.0 - 36.0 [facility] Erythrocyte distribution width [Ratio] by Automated count 15.9 % 11.5 - 14.8 H [facility] Platelets [#/volume] in Blood by Automated count 155 10^3/uL 150 - 45 0 [facility] Platelet mean volume [Entitic volume] in Blood by Automated count 10.6 fL 7.4 - 10.4 H [facility] Neutrophils/100 leukocytes in Blood by Automated count 80.1 % 37. 0 - 80.0 H [facility] Lymphocytes/100 leukocytes in Blood by Manual count 12.3 % 25.0 - 40.0 L [facility] Monocytes/100 leukocytes in Blood by Automated count 5.5 % 3.0 - 8.0 [facility] Eosinophils/100 leukocytes in Blood by Automated count 1.5 % 0.0 - 7.0 [facility] Basophils/100 leukocytes in Blood by Automated count 0.3 % 0.0 - 2.0 [facility] %IG 0.3 % 0.0 - [facility].0 [facility]BC 0.0 % 0.0 - 0.0 [facility] al Neutrophils [#/volume] in Blood by Automated count 5.49 10^3/uL 2.00 - 6.90 [facility] Lymphocytes [#/volume] in Blood by Automated count 0.84 10^3/uL 0.60 - 3.40 [facility] Monocytes [#/volume] in Blood by Automated count 0.38 10^3/uL 0.00 - 0.90 [facility] Eosinophils [#/volume] in Blood by Automated count 0.10 10^3/uL 0.00 - 0.70 [facility] Basophils [#/volume] in Blood by Automated count 0.02 10^3/uL 0.00 - 0.20 [facility] #IG 0.02 10^3/uL 0.00 - 0.10 [facility] #NRBC 0.00 10^3/uL 0.00 - 0.00 [facility] ospital MANUAL DIFF NOT INDICATED [facility] RBC MORPH NOT INDICATED [facility] spital ID Date Data Source [id number] 04/15/2020 08:36:00 AM EST [facility] Name Value Range Interpretation Code Description Data Tavo rce(s) Supporting Document(s) Prothrombin time (PT) 13.6 SECONDS 11.0 - 15.5 [facility] INR in Platelet poor plasma by Coagulation assay 0.99 0.93 - 1. 23 [facility] aPTT in Blood by Coagulation assay 28.2 SECONDS 24.8 - 36.7 [facility] \\BLDo\\INR INTERPRETATION\\BLDx\\ Therapeutic range for Coumadin and related oral anticoagulants. - International Normalized Ratio (INR): 2.0 - 3.0 for Venous Thrombosis, Pulmonary Embolus, Tissue heart valves, Acute NH Atrial Fibrillation, Valvular heart disease and recurrent Systemic Embolism. - International Normalized Ratio (INR): 2.5 - 3.5 for Mechanical Prosthetic valve. ID Date Data Source [id number] 04/15/2020 08:22:00 AM EST [facility] (Jon Elizondo MD) Name Value Range Interpretation Code Description Data Tavo rce(s) Supporting Document(s) Troponin T.cardiac [Mass/volume] in Serum or Plasma 0.01 ng/mL 0.00-0 .10 [facility] (Jon Elizondo MD) TROPONIN T 0.1 ng/ml Recommended as the clinical th reshold value for Troponin T. ID Date Data Source [id number] 04/15/2020 08:22:00 AM EST [facility] (Jon Elizondo MD) Name Value Range Interpretation Code Description Data Tavo rce(s) Supporting Document(s) Laboratory test finding (navigational concept) Laboratory test result [facility] (Jon Elizondo MD) COMPREHENSIVE METABOLIC PANEL Laboratory test finding (navigational concept) 142 meq/L 134-153 [facility] (Jon Elizondo MD) Laboratory test finding (navigational concept) 4.6 meq/L 3.6-5.0 [facility] (Jon Elizondo MD) Laboratory test finding (navigational concept) 108 meq/L 9 8-107 Above high normal [facility] (Jon Elizondo MD) Laboratory test finding (navigational concept) 25 meq/L 22-30 [facility] (Jon Elizondo MD) Laboratory test finding (navigational concept) 128 mg/dL 6 5-110 Above high normal [facility] (Jon Elizondo MD) Laboratory test finding (navigational concept) 1.2 mg/dL 0.7-1.5 [facility] (Jon Elizondo MD) Laboratory test finding (navigational concept) 43 mg/dL 7-21 Above high normal [facility] (Jon Elizondo MD) Laboratory test finding (navigational concept) 36 8-27 Above high normal [facility] (Jon Elizondo MD) Laboratory test finding (navigational concept) 6.8 g/dL 6.3-8.2 [facility] (Jon Elizondo MD) Laboratory test finding (navigational concept) 3.9 g/dL 3.9-5.0 [facility] (Jon Elizondo MD) Laboratory test finding (navigational concept) 2.9 GM/DL 2.4-3.2 [facility] (Jon Elizondo MD) Laboratory test finding (navigational concept) 1.3 0.8-2.0 [facility] (Jon Elizondo MD) Laboratory test finding (navigational concept) 9.5 mg/dL 8.4-10.2 [facility] (Jon Elizondo MD) Laboratory test finding (navigational concept) Laboratory test resu lt 0.2-1.3 [facility] (Jon Elizondo MD) Laboratory test finding (navigational concept) 227 U/L 38-126 Above high normal [facility] (Jon Elizondo MD) Laboratory test finding (navigational concept) 34 U/L 7-56 [facility] (Jon Elizondo MD) Laboratory test finding (navigational concept) 25 U/L 5-40 [facility] (Jon Elizondo MD) Laboratory test finding (navigational concept) 9.0 mmol/L 8.0-16.0 [facility] (Jon Elizondo MD) Laboratory test finding (navigational concept) 64 yrs [facility] (Jon Elizondo MD) Laboratory test finding (navigational concept) Laboratory test result [facility] (Jon Elizondo MD) Laboratory test finding (navigational concept) Laboratory test result [facility] (Jon Elizondo MD) Male GFR Interprentation 20-49 yrs >60 mL/min Normal 50-59 yrs >56 mL/min Normal 60-69 yrs >49 mL/min Normal 70-79yrs >42 mL/min Normal 80 and above >35 mL/min Normal Female GFR Interpretation 20-39 yrs >60 mL/min Normal 40-49 yrs >58 mL/min Normal 50-59 yrs >51 mL/min Normal 60-69 yrs >45 mL/min Normal 70-79 yrs >39 mL/min Normal 80 and above >32 mL/min Normal ID Date Data Source [id number] 03/18/2020 12:00:00 AM EST [facility] Name Value Range Interpretation Code Description Data Tavo rce(s) Supporting Document(s) 2019-nCoV RNA XXX LUIS A+probe-Imp [facility] This lab was ordered by [facility] and reported by [facility]. Procedure Social History Code Duration Value Status Description Data Source(s ) 03/10/2021 12:00:00 AM EST Patient is a current smoker, smokes every day completed Patient is a current smoker, smokes every day [facility] ( [facility] Alcohol intake 01/08/2021 12:00:00 AM EDT Current drinker of al cohol (finding) completed Current drinker of alcohol (finding) [facility] Alcohol intake 04/15/2020 12:00:00 AM EST Current drinker of al cohol (finding) completed Current drinker of alcohol (finding) [facility] Cigarettes smoked current (pack per day) - Reported 04/15/19 12:00:00 AM EST UNK completed [facility] Smoking 04/15/2020 12:00:00 AM EST Current every day smoker co mpleted Current every day smoker [facility] Vital Signs ID Date Data Source UNK Name Value Range Interpretation Code Description Data Source(s) Oxygen saturation in Arterial blood by Pulse oximetry 98 % 98 % [facility] (Jon Elizondo MD) Body height 69 [in_i] 69 [in_i] [facility] (Jon Elizondo MD) 5'9" Body weight 188.00 [lb_av] 188.00 [lb_av] MEDEN T (Jon Elizondo MD) Body mass index (BMI) [Ratio] 27.8 kg/m2 27.8 k g/m2 [facility] (Jon Elizondo MD) Body temperature 97.5 [degF] 97.5 [degF] [facility] (Jon Elizondo MD) Systolic blood pressure 112 mm[Hg] 112 mm[Hg] M [facility] (Jon Elizondo MD) Diastolic blood pressure 67 mm[Hg] 67 mm[Hg] [facility] (Jon Elizondo MD) Heart rate 78 /min 78 /min [facility] (Jon Elizondo MD) Systolic blood pressure 130 mm[Hg] 130 mm[Hg] M [facility] ([facility]) Diastolic blood pressure 70 mm[Hg] 70 mm[Hg] [facility] ([facility]) Systolic blood pressure 100 mm[Hg] 100 mm[Hg] M [facility] ([facility]) Diastolic blood pressure 60 mm[Hg] 60 mm[Hg] [facility] ([facility]) Body temperature 96.9 [degF] 96.9 [degF] [facility] ([facility]) Body height 69 [in_i] 69 [in_i] [facility] ([facility] 5'9" Body weight 195.00 [lb_av] 195.00 [lb_av] MEDEN T ([facility]) Body weight 88.452 kg 88.452 kg [facility] ([facility] Body mass index (BMI) [Ratio] 28.8 kg/m2 28.8 k g/m2 [facility] ([facility]) Body height 69 [in_i] 69 [in_i] [facility] (Jon Elizondo MD) 5'9" Oxygen saturation in Arterial blood by Pulse oximetry 95 % 95 % [facility] (Jon Elizondo MD) Body weight 200.00 [lb_av] 200.00 [lb_av] MEDEN T (Jon Elizondo MD) Body mass index (BMI) [Ratio] 29.5 kg/m2 29.5 k g/m2 [facility] (Jon Elizondo MD) Body temperature 97.6 [degF] 97.6 [degF] [facility] (Jon Elizondo MD) Systolic blood pressure 107 mm[Hg] 107 mm[Hg] M EDENT (Jon Elizondo MD) Diastolic blood pressure 68 mm[Hg] 68 mm[Hg] [facility] (Jon Elizondo MD) Heart rate 68 /min 68 /min [facility] (Jon Elizondo MD) Systolic blood pressure 128 mm[Hg] 128 mm[Hg] EDENT ([facility]) Diastolic blood pressure 78 mm[Hg] 78 mm[Hg] [facility] ([facility]) Heart rate 70 /min 70 /min [facility] ([facility]) Body temperature 97.3 [degF] 97.3 [degF] [facility] ([facility]) Respiratory rate 16 /min 16 /min [facility] ( [facility]) Oxygen saturation in Arterial blood by Pulse oximetry 93 % 93 % [facility] ([facility]) Body weight 199.00 [lb_av] 199.00 [lb_av] MED[facility] T ([facility]) before hospital says 186 then gained flu id Body weight 90.266 kg 90.266 kg [facility] ([facility]) Body height 69 [in_i] 69 [in_i] [facility] ([facility]) 5'9" Body mass index (BMI) [Ratio] 29.4 kg/m2 29.4 k g/m2 [facility] ([facility]) Body surface area Derived from formula 2.06 m2 2.06 m2 [facility] ([facility]) Systolic blood pressure 116 mm[Hg] 116 mm[Hg] [facility] Diastolic blood pressure 57 mm[Hg] 57 mm[Hg] [facility] Heart rate 59 /min 59 /min [facility] Body temperature 36.61 Halima 36.61 Halima [facility] Respiratory rate 20 /min 20 /min [facility] Oxygen saturation in Arterial blood by Pulse oximetry 94 % 94 % [facility] Body weight 86.773 kg 86.773 kg [facility] Body mass index (BMI) [Ratio] 28.25 kg/m2 28.25 kg/m2 [facility] Body weight 197.12 [lb_av] 197.12 [lb_av] [facility] T ([facility]) Body temperature 97.9 [degF] 97.9 [degF] [facility] ([facility]) Systolic blood pressure 116 mm[Hg] 116 mm[Hg] M [facility] ([facility]) Diastolic blood pressure 66 mm[Hg] 66 mm[Hg] [facility] ([facility]) Heart rate 63 /min 63 /min [facility] ([facility]) Oxygen saturation in Arterial blood by Pulse oximetry 99 % 99 % [facility] ([facility]) Respiratory rate 18 /min 18 /min [facility] ( [facility]) Body mass index (BMI) [Ratio] 29.1 kg/m2 29.1 k g/m2 [facility] ([facility]) Body height 69 [in_i] 69 [in_i] [facility] ([facility]) 5'9" Systolic blood pressure 116 mm[Hg] 116 mm[Hg] M [facility] ([facility]) Body mass index (BMI) [Ratio] 29.1 kg/m2 29.1 k g/m2 [facility] ([facility]) Respiratory rate 18 /min 18 /min [facility] ( [facility]) Diastolic blood pressure 66 mm[Hg] 66 mm[Hg] [facility] ([facility]) Body temperature 97.9 [degF] 97.9 [degF] [facility] ([facility]) Heart rate 63 /min 63 /min [facility] ([facility]) Oxygen saturation in Arterial blood by Pulse oximetry 99 % 99 % [facility] ([facility]) Body weight 194.00 [lb_av] 194.00 [lb_av] [facility] T ([facility]) Systolic blood pressure 117 mm[Hg] 117 mm[Hg] M [facility] ([facility]) Diastolic blood pressure 70 mm[Hg] 70 mm[Hg] [facility] ([facility]) Body height 69 [in_i] 69 [in_i] [facility] ([facility]) 5'9" Heart rate 68 /min 68 /min [facility] ([facility]) Body mass index (BMI) [Ratio] 28.6 kg/m2 28.6 k g/m2 [facility] ([facility]) Body temperature 97.7 [degF] 97.7 [degF] [facility] ([facility]) Oxygen saturation in Arterial blood by Pulse oximetry 97 % 97 % [facility] ([facility]) Body mass index (BMI) [Ratio] 28.6 kg/m2 28.6 k g/m2 [facility] ([facility]) Body temperature 97.7 [degF] 97.7 [degF] [facility] ([facility]) Systolic blood pressure 117 mm[Hg] 117 mm[Hg] M [facility] ([facility]) Diastolic blood pressure 70 mm[Hg] 70 mm[Hg] [facility] ([facility]) Heart rate 68 /min 68 /min [facility] ([facility]) Oxygen saturation in Arterial blood by Pulse oximetry 97 % 97 % [facility] ([facility]) Oxygen saturation in Arterial blood by Pulse oximetry 98 % 98 % [facility] ([facility]) Body height 69 [in_i] 69 [in_i] [facility] ([facility]) 5'9" Body weight 194.00 [lb_av] 194.00 [lb_av] [facility] ([facility]) Body mass index (BMI) [Ratio] 28.6 kg/m2 28.6 k g/m2 [facility] ([facility]) Body temperature 98.1 [degF] 98.1 [degF] [facility] ([facility]) Systolic blood pressure 125 mm[Hg] 125 mm[Hg] M [facility] ([facility]) Diastolic blood pressure 69 mm[Hg] 69 mm[Hg] [facility] ([facility]) Heart rate 70 /min 70 /min [facility] ([facility]) Body mass index (BMI) [Ratio] 29.4 kg/m2 29.4 k g/m2 [facility] ([facility]) Body weight 199.00 [lb_av] 199.00 [lb_av] [facility] T ([facility]) Systolic blood pressure 122 mm[Hg] 122 mm[Hg] M [facility] ([facility]) Body temperature 98.4 [degF] 98.4 [degF] [facility] ([facility]) Diastolic blood pressure 68 mm[Hg] 68 mm[Hg] [facility] ([facility]) Heart rate 67 /min 67 /min [facility] ([facility]) Body height 69 [in_i] 69 [in_i] [facility] ([facility]) 5'9" Oxygen saturation in Arterial blood by Pulse oximetry 99 % 99 % [facility] ([facility]) Systolic blood pressure 114 mm[Hg] 114 mm[Hg] M [facility] ([facility], ) Body temperature 98.5 [degF] 98.5 [degF] [facility] ([facility], ) Body height 68 [in_i] 68 [in_i] [facility] ([facility], ) 5'8" Body weight 190.50 [lb_av] 190.50 [lb_av] [facility] T ([facility], ) Diastolic blood pressure 58 mm[Hg] 58 mm[Hg] [facility] ([facility]) Body mass index (BMI) [Ratio] 29.0 kg/m2 29.0 k g/m2 [facility] ([facility]) Body weight 86.411 kg 86.411 kg [facility] ([facility]) Kerrick body weight 154 [lb_av] 154 [lb_av] [facility] T ([facility]) Body surface area Derived from formula 2.00 m2 2.00 m2 [facility] ([facility]) Body weight 185.12 [lb_av] 185.12 [lb_av] [facility] T ([facility]) Body height 69 [in_i] 69 [in_i] [facility] ([facility]) 5'9" Body mass index (BMI) [Ratio] 27.3 kg/m2 27.3 k g/m2 [facility] ([facility]) Body temperature 97.7 [degF] 97.7 [degF] [facility] ([facility]) Systolic blood pressure 97 mm[Hg] 97 mm[Hg] [facility] ([facility]) Diastolic blood pressure 56 mm[Hg] 56 mm[Hg] [facility] ([facility]) Heart rate 65 /min 65 /min [facility] ([facility]) Oxygen saturation in Arterial blood by Pulse oximetry 96 % 96 % [facility] ([facility]) Systolic blood pressure 93 mm[Hg] 93 mm[Hg] [facility] ([facility]) Diastolic blood pressure 54 mm[Hg] 54 mm[Hg] [facility] ([facility]) Heart rate 81 /min 81 /min [facility] ([facility]) Oxygen saturation in Arterial blood by Pulse oximetry 98 % 98 % [facility] ([facility]) Body height 69 [in_i] 69 [in_i] [facility] ([facility]) 5'9" Body weight 187.00 [lb_av] 187.00 [lb_av] [facility] T ([facility]) Body mass index (BMI) [Ratio] 27.6 kg/m2 27.6 k g/m2 [facility] ([facility]) Body temperature 97.9 [degF] 97.9 [degF] [facility] ([facility]) Systolic blood pressure 130 mm[Hg] 130 mm[Hg] [facility] ([facility]) Diastolic blood pressure 60 mm[Hg] 60 mm[Hg] [facility] ([facility]) Systolic blood pressure 108 mm[Hg] 108 mm[Hg] [facility] ([facility]) Diastolic blood pressure 50 mm[Hg] 50 mm[Hg] [facility] ([facility]) Body temperature 97.2 [degF] 97.2 [degF] [facility] ([facility]) Body height 69 [in_i] 69 [in_i] [facility] 5'9" Body weight 185.00 [lb_av] 185.00 [lb_av] [facility] T ([facility]) Body weight 83.916 kg 83.916 kg [facility] Body mass index (BMI) [Ratio] 27.3 kg/m2 27.3 k g/m2 [facility] ([facility] Body height 69 [in_i] 69 [in_i] [facility] ([facility]) 5'9" Body temperature 97.9 [degF] 97.9 [degF] [facility] ([facility]) Systolic blood pressure 99 mm[Hg] 99 mm[Hg] [facility] ([facility]) Diastolic blood pressure 57 mm[Hg] 57 mm[Hg] [facility] ([facility]) Heart rate 62 /min 62 /min [facility] ([facility]) Oxygen saturation in Arterial blood by Pulse oximetry 98 % 98 % [facility] ([facility]) Body weight 187.00 [lb_av] 187.00 [lb_av] [facility] T ([facility]) Body mass index (BMI) [Ratio] 27.6 kg/m2 27.6 k g/m2 [facility] ([facility]) Systolic blood pressure 135 mm[Hg] 135 mm[Hg] [facility] ([facility]) Diastolic blood pressure 60 mm[Hg] 60 mm[Hg] [facility] ([facility]) Heart rate 60 /min 60 /min [facility] Body temperature 97.0 [degF] 97.0 [degF] [facility] ([facility] Body height 69 [in_i] 69 [in_i] [facility] 5'9" Oxygen saturation in Arterial blood by Pulse oximetry 92 % 92 % [facility] ([facility]) Body weight 194.00 [lb_av] 194.00 [lb_av] [facility] T ([facility]) Body weight 87.998 kg 87.998 kg [facility] ([facility]) Body height 69 [in_i] 69 [in_i] [facility] ([facility]) 5'9" Body mass index (BMI) [Ratio] 28.6 kg/m2 28.6 k g/m2 [facility] ([facility]) Body surface area Derived from formula 2.04 m2 2.04 m2 [facility] ([facility]) Systolic blood pressure 132 mm[Hg] 132 mm[Hg] [facility] ([facility]) Diastolic blood pressure 70 mm[Hg] 70 mm[Hg] [facility] ([facility]) Heart rate 87 /min 87 /min [facility] ([facility]) Body temperature 97.3 [degF] 97.3 [degF] [facility] ([facility]) Respiratory rate 18 /min 18 /min [facility] ( [facility]) Body mass index (BMI) [Ratio] 28.2 kg/m2 28.2 k g/m2 [facility] ([facility]) Body height 69 [in_i] 69 [in_i] [facility] ([facility]) 5'9" Body weight 191.00 [lb_av] 191.00 [lb_av] [facility] T ([facility]) Body temperature 98.8 [degF] 98.8 [degF] [facility] ([facility]) Systolic blood pressure 120 mm[Hg] 120 mm[Hg] [facility] ([facility]) Diastolic blood pressure 66 mm[Hg] 66 mm[Hg] [facility] ([facility]) Heart rate 64 /min 64 /min [facility] ([facility]) Oxygen saturation in Arterial blood by Pulse oximetry 99 % 99 % [facility] ([facility]) Systolic blood pressure 131 mm[Hg] 131 mm[Hg] [facility] ([facility]) Diastolic blood pressure 58 mm[Hg] 58 mm[Hg] [facility] ([facility]) Body height 69 [in_i] 69 [in_i] [facility] 5'9" Body weight 200.00 [lb_av] 200.00 [lb_av] [facility] T ([facility]) Body weight 90.720 kg 90.720 kg [facility] ([facility]) Body mass index (BMI) [Ratio] 29.5 kg/m2 29.5 k g/m2 [facility] ([facility]) Systolic blood pressure 128 mm[Hg] 128 mm[Hg] M [facility] ([facility]) Diastolic blood pressure 64 mm[Hg] 64 mm[Hg] [facility] ([facility]) Heart rate 60 /min 60 /min [facility] ([facility]) Body temperature 97.7 [degF] 97.7 [degF] [facility] ([facility]) Respiratory rate 18 /min 18 /min [facility] ( [facility]) Oxygen saturation in Arterial blood by Pulse oximetry 96 % 96 % [facility] ([facility]) Body weight 184.00 [lb_av] 184.00 [lb_av] [facility] T ([facility]) Body weight 83.462 kg 83.462 kg [facility] ([facility]) Body height 69 [in_i] 69 [in_i] [facility] ([facility]) 5'9" Body mass index (BMI) [Ratio] 27.2 kg/m2 27.2 k g/m2 [facility] ([facility]) Body surface area Derived from formula 1.99 m2 1.99 m2 [facility] ([facility]) Diastolic blood pressure 56 mm[Hg] 56 mm[Hg] [facility] ([facility]) Heart rate 60 /min 60 /min [facility] ([facility]) Systolic blood pressure 118 mm[Hg] 118 mm[Hg] M [facility] ([facility]) Oxygen saturation in Arterial blood by Pulse oximetry 97 % 97 % [facility] ([facility]) Body height 69 [in_i] 69 [in_i] [facility] ([facility]) 5'9" Body weight 189.00 [lb_av] 189.00 [lb_av] [facility] T ([facility]) Body mass index (BMI) [Ratio] 27.9 kg/m2 27.9 k g/m2 [facility] ([facility]) Body temperature 97.9 [degF] 97.9 [degF] [facility] ([facility]) ID Date Data Source [id number] 02/10/2021 08:52:30 AM EDT [facility] Name Value Range Interpretation Code Description Data Source(s) WEIGHT RECORDED 202.00 pounds 202.00 pounds [facility] Height 69 Inches 069 Inches [facility] WEIGHT RECORDED 202.00 pounds 202.00 pounds [facility] Height 69 Inches 069 Inches [facility] ID Date Data Source [id number] 02/10/2021 08:52:27 AM EDT [facility] Name Value Range Interpretation Code Description Data Source(s) WEIGHT RECORDED 197.00 pounds 197.00 pounds [facility] Height 69 Inches 069 Inches [facility] WEIGHT RECORDED 197.00 pounds 197.00 pounds [facility] Height 69 Inches 069 Inches [facility] ID Date Data Source [id number] 04/16/2020 04:46:42 AM [facility] Name Value Range Interpretation Code Description Data Source(s) TRANSFER FROM [facility] ID Date Data Source [id number] 04/23/2020 05:35:32 AM [facility] Name Value Range Interpretation Code Description Data Source(s) WEIGHT RECORDED 197.31 lb 197.31 lb [facility] WEIGHT RECORDED 191.58 lb 191.58 lb [facility] Body height Measured 69 in 69 in [facility] ID Date Data Source [id number] 04/22/2020 02:22:07 PM [facility] Name Value Range Interpretation Code Description Data Source(s) WEIGHT RECORDED 197 lb 197 lb [facility] Body height Measured 69 in 69 in [facility] WEIGHT RECORDED 197 lb 197 lb [facility] Body height Measured 69 in 69 in [facility] Patient Treatment Plan of Care Planned Activity Planned Date Details Description Data Source (s) Magnesium Oxide (MAG-OX) 400 MG tablet 01/10/2021 12:00:00 AM EDT [facility] carvedilol 6.25 MG Oral Tablet 01/09/2021 12:00:00 AM EDT [facility] Levothyroxine Sodium 0.075 MG Oral Tablet 01/09/2021 12:00:00 AM ED T [facility] normal saline flush 0.9 % injection 3 mL 01/08/2021 06:00:00 PM EDT [facility] sodium chloride 0.9% (NS) infusion 01/08/2021 06:00:00 PM EDT [facility] 10 ML Atropine Sulfate 0.1 MG/ML Prefilled Syringe 01/08/2021 04 :50:42 PM EDT [facility] Albuterol 0.83 MG/ML Inhalant Solution 01/08/2021 02:54:26 PM EDT [facility] Nitroglycerin 0.4 MG Sublingual Tablet 01/08/2021 02:52:37 PM EDT [facility] Ticagrelor 90 MG Oral Tablet 04/18/2020 09:00:00 AM [facility] Aspirin 81 MG Chewable Tablet 04/18/2020 12:00:00 AM [facility] Ticagrelor 90 MG Oral Tablet 04/18/2020 12:00:00 AM [facility] Ticagrelor 90 MG Oral Tablet 04/18/2020 12:00:00 AM [facility] Aspirin 81 MG Chewable Tablet 04/18/2020 12:00:00 AM [facility] Aspirin 325 MG Oral Tablet 04/17/2020 12:00:00 AM [facility] fluticasone (FLONASE) 50 MCG/ACT nasal spray 2 spray 021 09:00:00 AM [facility] Acetaminophen 325 MG Oral Tablet 09/14/2019 12:00:00 AM EDT [facility] Levothyroxine Sodium 0.05 MG Oral Tablet 07/27/2019 12:00:00 AM [facility] Magnesium Oxide 400 MG Oral Tablet [facility] Levothyroxine Sodium 0.05 MG Oral Tablet [facility] [place] 3-6-9 Fatty Acids (TRIPLE OMEGA COMPLEX PO) [facility] OLIVE LEAF EXTRACT PO [facility] Loratadine 10 MG Oral Tablet [facility] clopidogrel 75 MG Oral Tablet [facility] clopidogrel 75 MG Oral Tablet [facility] Aspirin 81 MG Delayed Release Oral Tablet [facility]
[2021-03-19] MEDS ORDERED: propofoL 200 MG/20 ML VIAL As Ordered ONE (13:23)
--- NOTE | 2021-03-19 14:08 | ROOR ---
Patient Name: Adebayo Liang Procedure Date: 03/19/2021 1:47 PM Date of : 1955 Age: 65 Room: [facility] Gender: Male Note Status: Finalized Procedure: Colonoscopy Indications: High risk colon cancer surveillance: Personal history of colonic polyps Providers: DO Baljeet Cameron MD: Amee [facility]ART[facility] Amee MARTIN [facility], Admin. Requesting Provider: Medicines: Propofol per Anesthesia Complications: No immediate complications. Procedure: Pre-Anesthesia Assessment: - Prior to the procedure, a History and Physical was performed, and patient medications and allergies were reviewed. The patient is competent. The risks and benefits of the procedure and the sedation options and risks were discussed with the patient. All questions were answered and informed consent was obtained. Patient identification and proposed procedure were verified by the physician, the nurse, the anesthesiologist and the hvac engineering technician in the endoscopy suite. Mental Status Examination: alert and oriented. Airway Examination: normal oropharyngeal airway and neck mobility. Respiratory Examination: clear to auscultation. CV Examination: normal. Prophylactic Antibiotics: The patient does not require prophylactic antibiotics. Prior Anticoagulants: The patient has taken no previous anticoagulant or antiplatelet agents except for aspirin. ASA Grade Assessment: III - A patient with severe systemic disease. After reviewing the risks and benefits, the patient was deemed in satisfactory condition to undergo the procedure. The anesthesia plan was to use monitored anesthesia care (MAC). Immediately prior to administration of medications, the patient was re-assessed for adequacy to receive sedatives. The heart rate, respiratory rate, oxygen saturations, blood pressure, adequacy of pulmonary ventilation, and response to care were monitored throughout the procedure. The physical status of the patient was re-assessed after the procedure. The Colonoscope was introduced through the anus and advanced to the cecum, identified by appendiceal orifice and ileocecal valve. The colonoscopy was performed without difficulty. The patient tolerated the procedure well. Findings: Non-bleeding internal hemorrhoids were found during retroflexion. The hemorrhoids were Grade I (internal hemorrhoids that do not prolapse). Impression: - Non-bleeding internal hemorrhoids. - No specimens collected. Recommendation: - Patient has a contact number available for emergencies. The signs and symptoms of potential delayed complications were discussed with the patient. Return to normal activities tomorrow. Written discharge instructions were provided to the patient. - Repeat colonoscopy in 5-10 years for screening purposes. - Return to my office PRN. Procedure Code(s): --- Professional --- G0105, Colorectal cancer screening; colonoscopy on individual at high risk Diagnosis Code(s): --- Professional --- Z86.010, Personal history of colonic polyps K64.0, First degree hemorrhoids CPT copyright 2019 [employer]. All rights reserved. The codes documented in this report are preliminary and upon technical publications writer review may be revised to meet current compliance requirements. Jesus Griffin DO 03/19/2021 2:08:23 PM Electronically signed by Jesus Griffin DO Number of Addenda: 0 Note Initiated On: 03/19/2021 1:47 PM Estimated Blood Loss: Estimated blood loss: none.
[2021-03-19 14:32] VITALS: BP 114/57
== END 2021-03-19 14:34 | disposition home or self-care (01) ==
LOC: M OPP 12:23
PROVIDERS: ATTEND Surgery
DX: Z12.11 Encounter for screening for malignant neoplasm of colon (principal); Z86.010 Personal history of colon polyps; K64.0 First degree hemorrhoids; Z79.82 Long term (current) use of aspirin; Z79.899 Other long term (current) drug therapy; Z88.8 Allergy status to other drugs, medicaments and biological substances; Z95.810 Presence of automatic (implantable) cardiac defibrillator; Z95.5 Presence of coronary angioplasty implant and graft; Z86.74 Personal history of sudden cardiac arrest; Z86.73 Personal history of transient ischemic attack (TIA), and cerebral infarction without residual deficits

== ENCOUNTER → 2021-03-25 | Outpatient (REF) | payer MEDICARE, OTHER ==
[~2021-03-25] MED LIST changes: -NS 1,000 ML IV ONE
[2021-03-25 18:19] LABS: PERCENT SATURATION 10.5 % (19.7-50.0)
== END ==
LOC: M LAB REF 17:16
PROVIDERS: ATTEND Internal Medicine Nephrology
DX: D50.9 Iron deficiency anemia, unspecified (principal)

== ENCOUNTER 2021-05-21 15:00 | Inpatient (IN) | payer MEDICARE, OTHER ==
[~2021-05-21] VITALS: Ht 175.3 cm; Wt 83.2 kg
[~2021-05-21 15:00] MED LIST changes: -BUME1TAB3; +BUME1TAB3 PO; +LOSA100T45 PO; -LOSA100T50 PO; -NITR0.4D6; +NITR0.4D6 TOP; +OMEP-173 PO; -OMEP-218 PO; -VERI2.5T; +VERI2.5T PO
[2021-05-21] MEDS ORDERED: CYMB1CAP5 PO (15:12)
[2021-05-21] MEDS ORDERED: FERR325T3 PO (15:12)
[2021-05-21] MEDS ORDERED: FLUT50SP33 NARES (15:12)
[2021-05-21] MEDS ORDERED: FUROSEMIDE 40MG/4ML VIAL (J1940) IV ONE (16:40)
[2021-05-21 17:13] LABS: BASO % 0.2 % (0.0-1.0); EOS % 0.5 % (0.0-3.0); HEMATOCRIT 34.3 % (42.0-52.0); HEMOGLOBIN 10.5 g/dl (13.5-17.5); LYMPH # 0.3 10^3/uL (1.5-5.0); LYMPH % 5.1 % (24.0-44.0); MEAN CORPUSCULAR HEMOGLOBIN 28.4 pg (27.0-33.0); MEAN CORPUSCULAR HGB CONC 30.6 g/dl (32.0-36.5); MEAN CORPUSCULAR VOLUME 92.7 fl (80.0-96.0); MONO # 0.6 10^3/uL (0.0-0.8); MONO % 8.7 % (2.0-8.0); NEUTROPHILS # 5.5 10^3/uL (1.5-8.5); NEUTROPHILS % 85.2 % (36.0-66.0); PLATELET COUNT, AUTOMATED 188 10^3/uL (150-450); WHITE BLOOD COUNT 6.5 10^3/uL (4.0-10.0)
[2021-05-21 17:43] LABS: BLOOD UREA NITROGEN 29 MG/DL (7-18); CALCIUM LEVEL 9.4 MG/DL (8.8-10.2); CARBON DIOXIDE LEVEL 29 MEQ/L (21-32); CHLORIDE LEVEL 102 MEQ/L (98-107); CREATININE FOR GFR 1.27 MG/DL (0.70-1.30); GLOMERULAR FILTRATION RATE > 60.0 (>49); GLUCOSE, FASTING 91 MG/DL (70-100); NT-PRO BNP 16829 PG/ML (<125); POTASSIUM SERUM 4.3 MEQ/L (3.5-5.1); SODIUM LEVEL 139 MEQ/L (136-145)
[2021-05-21] MEDS ORDERED: ALLO300T2 PO (17:54)
[2021-05-21 17:56] LABS: RSV AMPLIFICATION NEGATIVE (NEGATIVE)
[2021-05-21] MEDS ORDERED: VITMTA PO (18:02)
[2021-05-21] MEDS ORDERED: LEVO75TA4 PO (18:02)
[2021-05-21] MEDS ORDERED: HOME MED LIST COMPLETE! XX SCH (18:10)
[2021-05-21 21:06] VITALS: BP 150/72
[2021-05-21] MEDS: FUROSEMIDE 40MG/4ML VIAL (J1940) IV SCH (22:19)
[2021-05-21] MEDS: FERROUS SULFATE 325MG TAB PO SCH (22:20)
[2021-05-21] MEDS: ATORVASTATIN 20 MG TAB PO SCH (22:20)
[2021-05-22 04:00] VITALS: BP 138/66
[2021-05-22] MEDS: LEVOTHYROXINE 75MCG TABLET (0.075MG) PO SCH (05:17)
[2021-05-22] MEDS: FUROSEMIDE 40MG/4ML VIAL (J1940) IV SCH ×4 (05:18→22:45)
[2021-05-22 06:36] LABS: BASO % 0.4 % (0.0-1.0); EOS # 0.1 10^3/uL (0.0-0.5); EOS % 1.3 % (0.0-3.0); HEMATOCRIT 30.7 % (42.0-52.0); HEMOGLOBIN 9.5 g/dl (13.5-17.5); LYMPH # 0.4 10^3/uL (1.5-5.0); LYMPH % 6.5 % (24.0-44.0); MEAN CORPUSCULAR HEMOGLOBIN 28.4 pg (27.0-33.0); MEAN CORPUSCULAR HGB CONC 30.9 g/dl (32.0-36.5); MEAN CORPUSCULAR VOLUME 91.9 fl (80.0-96.0); MONO # 0.5 10^3/uL (0.0-0.8); MONO % 8.9 % (2.0-8.0); NEUTROPHILS # 4.6 10^3/uL (1.5-8.5); NEUTROPHILS % 82.7 % (36.0-66.0); PLATELET COUNT, AUTOMATED 184 10^3/uL (150-450); RED BLOOD COUNT 3.34 10^6/uL (4.30-6.10); WHITE BLOOD COUNT 5.5 10^3/uL (4.0-10.0)
[2021-05-22 07:07] LABS: BLOOD UREA NITROGEN 29 MG/DL (7-18); CALCIUM LEVEL 9.1 MG/DL (8.8-10.2); CARBON DIOXIDE LEVEL 29 MEQ/L (21-32); CHLORIDE LEVEL 103 MEQ/L (98-107); CREATININE FOR GFR 1.12 MG/DL (0.70-1.30); GLOMERULAR FILTRATION RATE > 60.0 (>49); GLUCOSE, FASTING 96 MG/DL (70-100); POTASSIUM SERUM 3.9 MEQ/L (3.5-5.1); SODIUM LEVEL 139 MEQ/L (136-145)
[2021-05-22] MEDS: ENOXAPARIN 40MG/0.4ML SYRINGE (J1650 PER 10MG) SC SCH (10:17)
[2021-05-22] MEDS: NITROGLYCERIN 0.4 MG/HR PATCH TOP SCH (10:17)
[2021-05-22] MEDS: allopurinoL 300 MG TAB PO SCH (10:18)
[2021-05-22] MEDS: ASPIRIN 325 MG TAB PO SCH (10:18)
[2021-05-22] MEDS: MAGNESIUM OXIDE 400MG TAB (MAG-OX) PO SCH (10:18)
[2021-05-22] MEDS: FERROUS SULFATE 325MG TAB PO SCH ×2 (10:19→19:55)
[2021-05-22] MEDS: OMEPRAZOLE 20MG CAP PO SCH (10:19)
[2021-05-22] MEDS: METOPROLOL SUCC *XL* 25MG TAB (TopROL *XL*) PO SCH (10:19)
[2021-05-22 13:59] VITALS: BP 126/64
[2021-05-22] MEDS: ATORVASTATIN 20 MG TAB PO SCH (19:56)
[2021-05-22 20:00] VITALS: BP 128/85
[2021-05-23 04:00] VITALS: BP 148/67
[2021-05-23] MEDS: FUROSEMIDE 40MG/4ML VIAL (J1940) IV SCH ×4 (05:21→22:11)
[2021-05-23] MEDS: LEVOTHYROXINE 75MCG TABLET (0.075MG) PO SCH (05:21)
[2021-05-23 06:30] LABS: BASO % 0.3 % (0.0-1.0); EOS # 0.1 10^3/uL (0.0-0.5); HEMATOCRIT 31.4 % (42.0-52.0); HEMOGLOBIN 9.6 g/dl (13.5-17.5); LYMPH # 0.4 10^3/uL (1.5-5.0); LYMPH % 6.5 % (24.0-44.0); MEAN CORPUSCULAR HEMOGLOBIN 28.6 pg (27.0-33.0); MEAN CORPUSCULAR HGB CONC 30.6 g/dl (32.0-36.5); MEAN CORPUSCULAR VOLUME 93.5 fl (80.0-96.0); MONO # 0.5 10^3/uL (0.0-0.8); NEUTROPHILS % 82.9 % (36.0-66.0); PLATELET COUNT, AUTOMATED 172 10^3/uL (150-450); RED BLOOD COUNT 3.36 10^6/uL (4.30-6.10)
[2021-05-23 06:52] LABS: BLOOD UREA NITROGEN 25 MG/DL (7-18); CALCIUM LEVEL 9.2 MG/DL (8.8-10.2); CARBON DIOXIDE LEVEL 32 MEQ/L (21-32); CHLORIDE LEVEL 103 MEQ/L (98-107); CREATININE FOR GFR 1.05 MG/DL (0.70-1.30); GLOMERULAR FILTRATION RATE > 60.0 (>49); GLUCOSE, FASTING 94 MG/DL (70-100); POTASSIUM SERUM 3.4 MEQ/L (3.5-5.1); SODIUM LEVEL 139 MEQ/L (136-145)
[2021-05-23] MEDS ORDERED: POTASSIUM CHLORIDE 10MEQ SR TABLET PO ONE (07:40)
[2021-05-23] MEDS: ENOXAPARIN 40MG/0.4ML SYRINGE (J1650 PER 10MG) SC SCH (08:57)
[2021-05-23] MEDS: METOPROLOL SUCC *XL* 25MG TAB (TopROL *XL*) PO SCH (08:58)
[2021-05-23] MEDS: ASPIRIN 325 MG TAB PO SCH (08:58)
[2021-05-23] MEDS: FERROUS SULFATE 325MG TAB PO SCH ×2 (08:58→19:44)
[2021-05-23] MEDS: OMEPRAZOLE 20MG CAP PO SCH (08:58)
[2021-05-23] MEDS: allopurinoL 300 MG TAB PO SCH (08:58)
[2021-05-23] MEDS: MAGNESIUM OXIDE 400MG TAB (MAG-OX) PO SCH (08:58)
[2021-05-23 14:00] VITALS: BP 138/71
[2021-05-23] MEDS: **NOTE PATIENT COMMENT** MISC XX SCH (19:43)
[2021-05-23] MEDS: ATORVASTATIN 20 MG TAB PO SCH (19:44)
[2021-05-23 20:02] VITALS: BP 143/65
[2021-05-24 03:42] VITALS: BP 139/67
[2021-05-24] MEDS: FUROSEMIDE 40MG/4ML VIAL (J1940) IV SCH ×4 (04:59→23:21)
[2021-05-24] MEDS: LEVOTHYROXINE 75MCG TABLET (0.075MG) PO SCH (05:46)
[2021-05-24 09:22] LABS: BASO % 0.3 % (0.0-1.0); EOS # 0.1 10^3/uL (0.0-0.5); HEMATOCRIT 34.1 % (42.0-52.0); HEMOGLOBIN 10.4 g/dl (13.5-17.5); LYMPH # 0.3 10^3/uL (1.5-5.0); LYMPH % 4.9 % (24.0-44.0); MEAN CORPUSCULAR HEMOGLOBIN 28.3 pg (27.0-33.0); MEAN CORPUSCULAR HGB CONC 30.5 g/dl (32.0-36.5); MEAN CORPUSCULAR VOLUME 92.7 fl (80.0-96.0); MONO # 0.5 10^3/uL (0.0-0.8); MONO % 7.6 % (2.0-8.0); NEUTROPHILS # 5.2 10^3/uL (1.5-8.5); NEUTROPHILS % 85.9 % (36.0-66.0); PLATELET COUNT, AUTOMATED 188 10^3/uL (150-450); RED BLOOD COUNT 3.68 10^6/uL (4.30-6.10); WHITE BLOOD COUNT 6.1 10^3/uL (4.0-10.0)
[2021-05-24] MEDS: allopurinoL 300 MG TAB PO SCH (09:30)
[2021-05-24] MEDS: ENOXAPARIN 40MG/0.4ML SYRINGE (J1650 PER 10MG) SC SCH (09:30)
[2021-05-24] MEDS: POTASSIUM CHLORIDE 10MEQ SR TABLET PO SCH (09:31)
[2021-05-24] MEDS: metOLazone 5 MG TAB PO SCH (09:31)
[2021-05-24] MEDS: OMEPRAZOLE 20MG CAP PO SCH (09:31)
[2021-05-24] MEDS: FERROUS SULFATE 325MG TAB PO SCH ×2 (09:31→20:35)
[2021-05-24] MEDS: ASPIRIN 325 MG TAB PO SCH (09:31)
[2021-05-24] MEDS: NITROGLYCERIN 0.4 MG/HR PATCH TOP SCH (09:31)
[2021-05-24] MEDS: METOPROLOL SUCC *XL* 25MG TAB (TopROL *XL*) PO SCH (09:32)
[2021-05-24] MEDS: MAGNESIUM OXIDE 400MG TAB (MAG-OX) PO SCH (09:32)
[2021-05-24 09:46] LABS: BLOOD UREA NITROGEN 22 MG/DL (7-18); CALCIUM LEVEL 9.5 MG/DL (8.8-10.2); CARBON DIOXIDE LEVEL 32 MEQ/L (21-32); CHLORIDE LEVEL 103 MEQ/L (98-107); CREATININE FOR GFR 1.08 MG/DL (0.70-1.30); GLOMERULAR FILTRATION RATE > 60.0 (>49); GLUCOSE, FASTING 109 MG/DL (70-100); POTASSIUM SERUM 3.5 MEQ/L (3.5-5.1); SODIUM LEVEL 141 MEQ/L (136-145)
[2021-05-24 14:00] VITALS: BP 145/71
[2021-05-24 19:29] VITALS: BP 138/69
[2021-05-24] MEDS: ATORVASTATIN 20 MG TAB PO SCH (20:35)
[2021-05-25 03:56] VITALS: BP 142/67
[2021-05-25] MEDS: LEVOTHYROXINE 75MCG TABLET (0.075MG) PO SCH (05:40)
[2021-05-25] MEDS: FUROSEMIDE 40MG/4ML VIAL (J1940) IV SCH ×4 (05:40→23:30)
[2021-05-25 07:51] LABS: BASO % 0.5 % (0.0-1.0); EOS # 0.1 10^3/uL (0.0-0.5); EOS % 1.5 % (0.0-3.0); HEMATOCRIT 33.8 % (42.0-52.0); HEMOGLOBIN 10.4 g/dl (13.5-17.5); LYMPH # 0.5 10^3/uL (1.5-5.0); LYMPH % 6.9 % (24.0-44.0); MEAN CORPUSCULAR HEMOGLOBIN 28.4 pg (27.0-33.0); MEAN CORPUSCULAR HGB CONC 30.8 g/dl (32.0-36.5); MEAN CORPUSCULAR VOLUME 92.3 fl (80.0-96.0); MONO # 0.6 10^3/uL (0.0-0.8); MONO % 9.2 % (2.0-8.0); NEUTROPHILS # 5.4 10^3/uL (1.5-8.5); NEUTROPHILS % 81.6 % (36.0-66.0); PLATELET COUNT, AUTOMATED 181 10^3/uL (150-450); RED BLOOD COUNT 3.66 10^6/uL (4.30-6.10); WHITE BLOOD COUNT 6.6 10^3/uL (4.0-10.0)
[2021-05-25 08:05] LABS: BLOOD UREA NITROGEN 23 MG/DL (7-18); CALCIUM LEVEL 9.7 MG/DL (8.8-10.2); CARBON DIOXIDE LEVEL 34 MEQ/L (21-32); CHLORIDE LEVEL 99 MEQ/L (98-107); CREATININE FOR GFR 1.02 MG/DL (0.70-1.30); GLOMERULAR FILTRATION RATE > 60.0 (>49); GLUCOSE, FASTING 90 MG/DL (70-100); POTASSIUM SERUM 3.5 MEQ/L (3.5-5.1); SODIUM LEVEL 140 MEQ/L (136-145)
[2021-05-25] MEDS: ENOXAPARIN 40MG/0.4ML SYRINGE (J1650 PER 10MG) SC SCH (08:46)
[2021-05-25] MEDS: METOPROLOL SUCC *XL* 25MG TAB (TopROL *XL*) PO SCH (08:47)
[2021-05-25] MEDS: metOLazone 5 MG TAB PO SCH (08:47)
[2021-05-25] MEDS: OMEPRAZOLE 20MG CAP PO SCH (08:47)
[2021-05-25] MEDS: ASPIRIN 325 MG TAB PO SCH (08:47)
[2021-05-25] MEDS: POTASSIUM CHLORIDE 10MEQ SR TABLET PO SCH (08:47)
[2021-05-25] MEDS: allopurinoL 300 MG TAB PO SCH (08:48)
[2021-05-25] MEDS: MAGNESIUM OXIDE 400MG TAB (MAG-OX) PO SCH (08:48)
[2021-05-25] MEDS: FERROUS SULFATE 325MG TAB PO SCH ×2 (08:48→22:03)
[2021-05-25 13:13] VITALS: BP 141/65
[2021-05-25 19:27] VITALS: BP 154/67
[2021-05-25] MEDS: ATORVASTATIN 20 MG TAB PO SCH (22:03)
[2021-05-25] MEDS: **NOTE PATIENT COMMENT** MISC XX SCH (22:04)
[2021-05-25 23:35] VITALS: BP 118/70
[2021-05-26 05:14] VITALS: BP 100/61
[2021-05-26 05:35] VITALS: BP 108/62
[2021-05-26] MEDS: FUROSEMIDE 40MG/4ML VIAL (J1940) IV SCH (05:37)
[2021-05-26] MEDS: LEVOTHYROXINE 75MCG TABLET (0.075MG) PO SCH (05:38)
[2021-05-26 07:06] LABS: BASO % 0.3 % (0.0-1.0); EOS # 0.1 10^3/uL (0.0-0.5); EOS % 1.6 % (0.0-3.0); HEMATOCRIT 34.8 % (42.0-52.0); HEMOGLOBIN 10.8 g/dl (13.5-17.5); LYMPH # 0.5 10^3/uL (1.5-5.0); LYMPH % 8.5 % (24.0-44.0); MEAN CORPUSCULAR HEMOGLOBIN 28.3 pg (27.0-33.0); MEAN CORPUSCULAR VOLUME 91.1 fl (80.0-96.0); MONO # 0.7 10^3/uL (0.0-0.8); MONO % 10.2 % (2.0-8.0); NEUTROPHILS % 79.2 % (36.0-66.0); PLATELET COUNT, AUTOMATED 173 10^3/uL (150-450); RED BLOOD COUNT 3.82 10^6/uL (4.30-6.10); WHITE BLOOD COUNT 6.4 10^3/uL (4.0-10.0)
[2021-05-26 07:25] LABS: BLOOD UREA NITROGEN 22 MG/DL (7-18); CALCIUM LEVEL 9.7 MG/DL (8.8-10.2); CARBON DIOXIDE LEVEL 34 MEQ/L (21-32); CHLORIDE LEVEL 97 MEQ/L (98-107); CREATININE FOR GFR 0.96 MG/DL (0.70-1.30); GLOMERULAR FILTRATION RATE > 60.0 (>49); GLUCOSE, FASTING 91 MG/DL (70-100); POTASSIUM SERUM 3.5 MEQ/L (3.5-5.1); SODIUM LEVEL 140 MEQ/L (136-145)
[2021-05-26] MEDS: allopurinoL 300 MG TAB PO SCH (08:38)
[2021-05-26] MEDS: ENOXAPARIN 40MG/0.4ML SYRINGE (J1650 PER 10MG) SC SCH (08:38)
[2021-05-26] MEDS: metOLazone 5 MG TAB PO SCH (08:39)
[2021-05-26] MEDS: MAGNESIUM OXIDE 400MG TAB (MAG-OX) PO SCH (08:39)
[2021-05-26] MEDS: ASPIRIN 325 MG TAB PO SCH (08:39)
[2021-05-26] MEDS: OMEPRAZOLE 20MG CAP PO SCH (08:39)
[2021-05-26] MEDS: FERROUS SULFATE 325MG TAB PO SCH (08:39)
[2021-05-26] MEDS: POTASSIUM CHLORIDE 10MEQ SR TABLET PO SCH (08:39)
[2021-05-26] MEDS: METOPROLOL SUCC *XL* 25MG TAB (TopROL *XL*) PO SCH (08:40)
[2021-05-26 08:41] VITALS: BP 110/59
[2021-05-26] MEDS: NITROGLYCERIN 0.4 MG/HR PATCH TOP SCH (08:41)
[2021-05-26 11:41] LABS: INR 1.21; PROTHROMBIN TIME 15.7 SECONDS (12.7-14.5)
[2021-05-26 11:42] LABS: PARTIAL THROMBOPLASTIN TIME 40.5 SECONDS (25.9-37.0)
[2021-05-26 13:36] VITALS: BP 99/55
[2021-05-26 14:50] VITALS: BP 110/62
[2021-05-26 16:40] VITALS: BP 117/59
[2021-05-26] MEDS ORDERED: FUROSEMIDE 40 MG TAB PO SCH (17:00)
[2021-05-26 17:40] LABS: SOURCE, BODY FLUID ALBUMIN ASCITES; SOURCE, BODY FLUID GLUCOSE ASCITES; SOURCE, BODY FLUID TOT PROTEIN ASCITES; TOTAL PROTEIN, BODY FLUID 4.8 G/DL (NOT ESTABLISHED)
[2021-05-26] MEDS ORDERED: POTA-136 PO (18:02)
[2021-05-26] MEDS ORDERED: METO25TA PO (18:02)
[2021-05-26 18:06] LABS: SOURCE, BODY FLUID ASCITES
[2021-05-26 18:07] LABS: APPEARANCE, BODY FLUID HAZY (CLEAR); ASCITES FL COLOR YELLOW (COLORLESS)
[2021-05-26 19:36] LABS: ALBUMIN 3.1 GM/DL (3.2-5.2); ALT/SGPT 19 U/L (12-78); BILIRUBIN,DIRECT 0.4 MG/DL (0.0-0.2); BILIRUBIN,TOTAL 1.2 MG/DL (0.2-1.0); TOTAL PROTEIN 7.4 GM/DL (6.4-8.2)
== END 2021-05-26 19:20 | disposition home or self-care (01) | DRG 291 ==
LOC: M ED 15:00 → M ED INP 18:24 → M 4MAIN 21:06
PROVIDERS: ADMIT Internal Medicine Nephrology; ATTEND Internal Medicine Nephrology
PROC: 0W9G3ZZ Drainage of Peritoneal Cavity, Percutaneous Approach (ICD-10-PCS; principal; 2021-05-26 15:00)
DX: I13.0 Hypertensive heart and chronic kidney disease with heart failure and stage 1 through stage 4 chronic kidney disease, or unspecified chronic kidney disease (principal); I50.23 Acute on chronic systolic (congestive) heart failure; U07.1 COVID-19; R18.8 Other ascites; I69.351 Hemiplegia and hemiparesis following cerebral infarction affecting right dominant side; I25.10 Atherosclerotic heart disease of native coronary artery without angina pectoris; Z95.5 Presence of coronary angioplasty implant and graft; E78.5 Hyperlipidemia, unspecified; I25.5 Ischemic cardiomyopathy; Z95.810 Presence of automatic (implantable) cardiac defibrillator; I73.9 Peripheral vascular disease, unspecified; Z95.828 Presence of other vascular implants and grafts; N18.9 Chronic kidney disease, unspecified; M10.9 Gout, unspecified; E03.9 Hypothyroidism, unspecified; F32.A Depression, unspecified; Z79.82 Long term (current) use of aspirin; Z79.899 Other long term (current) drug therapy; Z98.1 Arthrodesis status; Z98.41 Cataract extraction status, right eye; Z98.42 Cataract extraction status, left eye; F17.200 Nicotine dependence, unspecified, uncomplicated; G47.33 Obstructive sleep apnea (adult) (pediatric); K74.60 Unspecified cirrhosis of liver; K80.20 Calculus of gallbladder without cholecystitis without obstruction

== ENCOUNTER → 2022-08-18 | Outpatient (REF) | payer MEDICARE, OTHER ==
[~2022-08-18] MED LIST changes: +ALLO300T2 PO; +CLOP75TA99 PO; +CYMB1CAP5 PO; +FERR325T3 PO; +FLUT50SP33 NARES; +LEVO75TA4 PO; -LOSA100T45 PO; +LOSA100T46 PO; +METO25TA PO; -PLAV1TAB2 PO; +POTA-136 PO; +VITMTA PO
[2022-08-18 18:17] LABS: PERCENT SATURATION 12.1 % (19.7-50.0)
[2022-08-18 18:20] LABS: FERRITIN 151.7 NG/ML (10.5-307.3)
== END ==
LOC: M LAB REF 17:25
PROVIDERS: ATTEND Internal Medicine Nephrology
DX: D50.9 Iron deficiency anemia, unspecified (principal)